=== PATIENT | male | born 1985 | race Caucasian/White ===

== ENCOUNTER 2023-03-20 10:49 | Outpatient (REF) | payer MEDICAID, SELFPAY ==
[2023-03-20 11:44] LABS: MANUAL DIFF FLAG NO
[2023-03-20 11:49] LABS: Basophils Absolute Auto 0.2 X10*3/uL (0.0-0.2); Basophils Percent Auto 1.2 % (0-2); Eosinophils Absolute Auto 0.2 X10*3/uL (0.0-0.4); Eosinophils Percent Auto 1.2 % (0-4); Hematocrit 39.9 % (42.0-52.0); Imm Gran Abs Auto 0.09 X10*3/uL (0.00-0.03); Imm Gran Pct Auto 0.7 % (0.0-0.4); Lymphocytes Absolute Auto 2.5 X10*3/uL (1.2-4.9); Lymphocytes Percent Auto 19.6 % (20-40); Mean Corpuscular HGB Conc 35.1 g/dl (31.0-36.0); Mean Corpuscular Volume 85.4 fL (80.0-98.0); Mean Platelet Volume 10.7 fL (9.4-12.4); Monocytes Absolute Auto 0.8 X10*3/uL (0.1-1.2); Monocytes Percent Auto 6.1 % (2-11); Neutrophils Absolute Auto 9.2 x10*3/uL (2.0-8.3); Neutrophils Percent Auto 71.2 % (45-73); Platelet Count 503 X10*3/uL (160-400); Red Blood Count 4.67 X10*6/uL (4.60-5.80); Red Cell Distribution Width 11.8 % (11.0-16.0); White Blood Count 12.9 X10*3/uL (4.8-10.8)
[2023-03-20 13:06] LABS: Anion Gap 21 (12-20); Blood Urea Nitrogen 23 mg/dL (9-16); Calcium 10.2 mg/dL (8.4-10.2); Carbon Dioxide 24 mmol/L (22-29); Chloride 92 mmol/L (96-108); Estimated Glomerular Filt Rate 41; Glucose Random 486 mg/dL (60-115); Potassium 4.6 mmol/L (3.3-5.1); Sodium 132 mmol/L (135-145)
[2023-03-20 13:13] LABS: TSH reflex Free T4 23.52 uIU/mL (0.32-4.0)
[2023-03-20 13:49] LABS: Free T4 (Free Thyroxine) 0.84 ng/dL (0.71-1.85)
== END 2023-03-20 10:50 | disposition home or self-care (01) ==
LOC: HO.HHCL 10:49
PROVIDERS: Visit Provider Internal Medicine
DX: E03.9 Hypothyroidism, unspecified (principal); E11.65 Type 2 diabetes mellitus with hyperglycemia; N17.9 Acute kidney failure, unspecified
CPT/HCPCS: 36415; 80048; 84439; 84443; 85025

== ENCOUNTER 2023-03-29 10:28 | Outpatient (AMB) | payer MEDICAID, SELFPAY ==
[2023-03-29 10:35] VITALS: BP 140/100; PULSE 110; O2SAT 99; BMI 43.8
--- NOTE | 2023-03-29 10:35 | HO.NEPHOV_ITS ---
HPI HPI Comments History of Present Illness Details I had the privilege of seeing Mr. Anderson in consultation for recent acute kidney injury. He is 37 years of age and has longstanding history of uncontrolled diabetes mellitus. He has DM and HTN since he was in 20's. He recently had a scrotal abscess which was drained and was getting antibiotics. He had a CT scan with IV contrast. He has no history of drug use. He denies history of retinopathy or LVH but has proteinuria and neuropathy. . He used to take nonsteroidal anti-inflammatories which has been recently discontinued. He does not have any nausea, vomiting, diarrhea, shortness of breath, proximal nocturnal dyspnea, orthopnea, pedal edema, hematuria, renal stones, coronary artery disease, congestive heart failure, carotid stenosis, peripheral arterial disease, renal artery stenosis, new bone or back pain. He never had any history of high serum calcium. He denies any history of hepatitis or HIV. He does not get any recurrent sore throat, epistaxis, hemoptysis, photosensitivity, skin rashes. He has no sensorineural hearing deficits. He has no acral tingling or paresthesia. He is concerned about his recent high serum creatinine. He has GAIL and does not have CPAP now. He had 2 uncles with ESRD. [facility] Medical History (Updated 03/29/23 @ 10:45 by Killian Lopes MD) Acquired hypothyroidism JASBIR (acute kidney injury) Paraspinal muscle spasm Axillary hidradenitis suppurativa Hypertension Flat foot Gout Mood disorder Morbid obesity Obstructive sleep apnea syndrome Type 2 diabetes mellitus Surgical History (Updated 03/29/23 @ 10:42 by Kita Monzon MA) History of circumcision History of tonsillectomy and adenoidectomy History of removal of cyst Family History (Updated 03/29/23 @ 10:43 by Kita Monzon MA) Father Diabetes Mother Thyroid disease Maternal Grandfather Cancer Vital Signs 03/29/23 10:35 Height 5 ft 8 in Weight 288 lb 6 oz BMI 43.8 BP 140/100 H Blood Pressure Location Lt brachial Position Sitting Pulse 110 H Pulse Source Pulse Oximeter Pulse Oximetry (%) 99 Oxygen Delivery Method Room Air Physical Exam Vital Signs: Last Vital Signs Pulse 110 H 03/29/23 10:35 BP 140/100 H 03/29/23 10:35 Pulse Ox 99 03/29/23 10:35 Oxygen Delivery Method Room Air 03/29/23 10:35 BMI result Body Mass Index 43.8 Const General: comfortable and no acute distress Orientation/consciousness: patient oriented x3 HEENT Head: Yes normocephalic Mouth: Normal oral and palatal mucosa present Eyes EOM: EOMs intact bilaterally Neck Neck: Yes supple Resp Auscultation: clear to auscultation bilaterally Cardio Jugular venous distension: no JVD Rate: regular rate GI Palpation (GI): Soft to palpation Auscultation: normal bowel sounds General: Yes no CVA tenderness Back/Spine/Pelvis Back: no CVA tenderness Skin General skin exam: no rashes or lesions noted Neuro General: patient oriented x3 and moves all extremities Extrem General: Yes no pedal edema Assessment & Plan Assessment & Plan (1) JASBIR (acute kidney injury): Code(s): N17.9 - Acute kidney failure, unspecified (2) Hypertension: Code(s): I10 - Essential (primary) hypertension Qualifiers: Hypertension type: primary hypertension Qualified Code(s): I10 - Essential (primary) hypertension Plan Mr. Anderson has longstanding uncontrolled diabetes. He recently had a scrotal abscess which was drained. He was on SIERRA-inhibitor that time. He was also taking nonsteroidal anti-inflammatories. Most likely he had suffered tubular injury. His urine output is good and there is no reason to suspect any obstructive uropathy. Differential diagnosis will be jordan infectious glomerulonephritis or AIN. I have ordered extensive workup including blood work and urine studies as well as renal ultrasound. His SIERRA inhibitor is on hold. He is avoiding nonsteroidal anti-inflammatories and PPI for now which I encouraged. He needs to maintain hydration. I increased his carvedilol to 12.5 mg bid. I did not make any other medication changes today. All these possibilities have been discussed in detail and I answered all his questions. Further management has been involving data. Orders: Orders Complement C4 Today I10 - Essential (primary) hypertension, N17.9 - Acute kidney failure, unspecified Myeloperoxidase Antibody Today I10 - Essential (primary) hypertension, N17.9 - Acute kidney failure, unspecified Hepatitis B Surface Antigen Today I10 - Essential (primary) hypertension, N17.9 - Acute kidney failure, unspecified Hepatitis B Core Antibody Today I10 - Essential (primary) hypertension, N17.9 - Acute kidney failure, unspecified Blood Urea Nitrogen Today I10 - Essential (primary) hypertension, N17.9 - Acute kidney failure, unspecified Electrolytes Today I10 - Essential (primary) hypertension, N17.9 - Acute kidney failure, unspecified Calcium Today I10 - Essential (primary) hypertension, N17.9 - Acute kidney failure, unspecified Complement C3 Today I10 - Essential (primary) hypertension, N17.9 - Acute kidney failure, unspecified Immunofixation Pnl, Serum Today I10 - Essential (primary) hypertension, N17.9 - Acute kidney failure, unspecified Anti Glomerular Basement Memb Today I10 - Essential (primary) hypertension, N17.9 - Acute kidney failure, unspecified Proteinase 3 PR3 Antibodies Today I10 - Essential (primary) hypertension, N17.9 - Acute kidney failure, unspecified Anti DNA DS Antibody Today I10 - Essential (primary) hypertension, N17.9 - Acute kidney failure, unspecified Phospholipase A2 Receptor Pnl Today I10 - Essential (primary) hypertension, N17.9 - Acute kidney failure, unspecified Hepatitis C Antibody Reflex Today I10 - Essential (primary) hypertension, N17.9 - Acute kidney failure, unspecified Creatinine Today I10 - Essential (primary) hypertension, N17.9 - Acute kidney failure, unspecified UA and rflx microscopic Today I10 - Essential (primary) hypertension, N17.9 - Acute kidney failure, unspecified Protein Creatinine Ratio, Ur Today I10 - Essential (primary) hypertension, N17.9 - Acute kidney failure, unspecified Coding Level of Care Code New Pt Level 4 (88329) Diagnoses JASBIR (acute kidney injury) N17.9 Primary hypertension I10 Hypertension type: primary hypertension Results Reviewed Nephrology Results: Hgb 14.0 g/dl (14.0-18.0) 03/20/23 WBC 12.9 X10*3/uL (4.8-10.8) H 03/20/23 Plt Count 503 X10*3/uL (160-400) H 03/20/23 Sodium 132 mmol/L (135-145) L 03/20/23 Potassium 4.6 mmol/L (3.3-5.1) 03/20/23 Chloride 92 mmol/L (96-108) L 03/20/23 Carbon Dioxide 24 mmol/L (22-29) 03/20/23 BUN 23 mg/dL (9-16) H 03/20/23 Creatinine 1.86 mg/dL (0.5-1.4) H 03/20/23 Calcium 10.2 mg/dL (8.4-10.2) 03/20/23
== END 2023-03-29 11:23 | disposition home or self-care (01) ==
PROVIDERS: PCP Internal Medicine; Referring Provider Internal Medicine; Visit Provider Internal Medicine Nephrology
DX: N17.9 Acute kidney failure, unspecified (principal); I10 Essential (primary) hypertension
CPT/HCPCS: 99204

== ENCOUNTER → 2023-03-29 10:28 | Outpatient (BNVA) | payer MEDICAID, SELFPAY | PROVIDERS: PCP Internal Medicine; Visit Provider Internal Medicine Nephrology | DX: I10 Essential (primary) hypertension (principal); N17.9 Acute kidney failure, unspecified | CPT/HCPCS: 99202 ==

== ENCOUNTER 2023-11-15 14:45 | Outpatient (REF) | payer MEDICAID, SELFPAY ==
--- NOTE | ~2023-11-15 | XR_ITS ---
EXAMINATION: XR SHOULDER, RIGHT CLINICAL INFORMATION: chronic pain COMPARISON: None available. TECHNIQUE: AP external rotation, Grashey, scapular Y, and axillary views of the right shoulder. FINDINGS: The bones and soft tissues are normal. No fracture. Glenohumeral and acromioclavicular alignment is anatomic with normal joint space. No abnormal soft tissue calcifications. XR/XR shoulder RT min 2V IMPRESSION: Normal right shoulder. Electronically signed by: Yfn Carlos MD 01/22/2024 04:27 PM FELICIA OLGUIN
== END 2023-11-15 14:46 | disposition home or self-care (01) ==
LOC: HO.XRAY 14:45
PROVIDERS: PCP Internal Medicine; Visit Provider Internal Medicine
DX: M25.511 Pain in right shoulder (principal); G89.29 Other chronic pain
CPT/HCPCS: 73030

== ENCOUNTER → 2023-11-15 14:51 | Outpatient (BNV) | payer MEDICAID, SELFPAY | PROVIDERS: PCP Internal Medicine; Visit Provider Radiology Diagnostic Radiology | DX: M25.511 Pain in right shoulder (principal) | CPT/HCPCS: 73030 ==

== ENCOUNTER 2023-12-20 10:46 | Outpatient (AMB) | payer MEDICAID, SELFPAY ==
--- NOTE | 2023-12-20 10:53 | MHC.OFFVIS ---
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 Patient reports about a month ago he had a procedure to remove cyst. He believes he may have gotten frozen shoulder from him laying in bed after his surgery. He states his arm felt stuck and had done at home stretches which had helped. His pain comes with ROM and travels down to his elbow. He complains of bilateral hand pain, swelling and coldness as well as numbness and tingling. Hx of diabetes. Hx of LT CTR. He is interested in discussing a cortisone injection. 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 He reports he had a cyst removal procedure about a month ago and believes he may have gotten frozen shoulder from laying in bed after his surgery. He states he has stiffness, numbness, tingling and aching pain in his arm that radiates down to his right arm and elbow. He rates the pain as 8 on the scale of 0-10. His pain is aggravated with lifting and ROM. He has not had any treatment in the past. He has tried home stretches that provided him relief. He is interested in having a cortisone injection. 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 He has a history of diabetes. His sugar level is uncontrolled and he takes insulin. He also has a history of left CTR. [facility] Medical History (Updated 12/20/23 @ 11:27 by Adrian Rodriguez PA-C) Acquired hypothyroidism JASBIR (acute kidney injury) Paraspinal muscle spasm Axillary hidradenitis suppurativa Hypertension Flat foot Gout Mood disorder Morbid obesity Obstructive sleep apnea syndrome Type 2 diabetes mellitus Surgical History (Updated 03/29/23 @ 10:42 by Kita Monzon MA) History of circumcision History of tonsillectomy and adenoidectomy History of removal of cyst Family History (Updated 03/29/23 @ 10:43 by Kita Monzon MA) Father Diabetes Mother Thyroid disease Maternal Grandfather Cancer Social History (Updated 12/20/23 @ 11:03 by Jodi Menendez [facility]) Patient Tobacco Use Status: Former Tobacco user Current occupational status: employed 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, 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 Review of Systems Const All systems reviewed & are unremarkable except as noted in HPI and below Physical Exam Vital Signs: BMI result Body Mass Index 43.8 Const General: cooperative, healthy appearing, comfortable, no acute distress, well developed and alert Orientation/consciousness: patient oriented x3 HEENT Head: Yes normal to inspection, Yes normocephalic and Yes atraumatic Eyes General: appearance normal, both eyes and all related structures Resp Effort & Inspection: normal respiratory effort and able to speak in complete sentences Cardio Rate: regular rate Peripheral pulses: Peripheral pulses 2+ throughout GI Palpation (GI): Soft to palpation Skin Lesions: no lesions Rashes: no rashes Neuro General: patient oriented x3 Extrem Other: Right shoulder: Normal to inspection. Tenderness over the bicipital groove and along the deltoid region of the shoulder. Forward flexion to 175, external rotation to 90, internal rotation to S1. 5/5 RTC strength. Negative Morel and cross body abduction. NVI. ? Assessment & Plan Assessment & Plan (1) Tendinitis of right rotator cuff: Code(s): M75.81 - Other shoulder lesions, right shoulder Category: Medical Plan We discussed options which include PT, NSAIDs and injections. The patient will defer on the injection today and proceed with PT and NSAIDs. If symptoms persist, she will contact me for an injection, otherwise, PRN. Orders: Orders PT Evaluation and Treatment Today M75.81 - Other shoulder lesions, right shoulder Medications: New celecoxib (Celebrex) 200 mg PO BID 60 caps 3RF 30 days Patient Instructions: Scribed for Adrian Rodriguez PA-C, by Alok Arias medical payment poster, on 12/20/2023 at 11:15 AM EST.? I, Adrian Rodriguez PA-C, have personally reviewed and agree with the information entered by the scribe. Coding Level of Care Code New Pt Level 3 (49814) Complex EM visit Add On G2211 Diagnoses Tendinitis of right rotator cuff M75.81
[2023-12-20 10:54] VITALS: BMI 43.8
== END 2023-12-20 14:32 | disposition home or self-care (01) ==
LOC: HO.HOS 10:46
PROVIDERS: PCP Internal Medicine; Visit Provider Physician Assistant
DX: M75.81 Other shoulder lesions, right shoulder (principal)
CPT/HCPCS: 99203

== ENCOUNTER → 2023-12-20 10:46 | Outpatient (BNVA) | payer MEDICAID, SELFPAY | PROVIDERS: PCP Internal Medicine; Visit Provider Physician Assistant | DX: M75.81 Other shoulder lesions, right shoulder (principal) | CPT/HCPCS: 99212 ==

== ENCOUNTER 2024-01-08 13:59 | Outpatient (REF) | payer MEDICAID, SELFPAY ==
[2024-01-08 16:05] LABS: MANUAL DIFF FLAG NO
[2024-01-08 16:29] LABS: Basophils Absolute Auto 0.1 X10*3/uL (0.0-0.2); Basophils Percent Auto 1.4 % (0-2); Eosinophils Absolute Auto 0.3 X10*3/uL (0.0-0.4); Hematocrit 39.9 % (42.0-52.0); Imm Gran Abs Auto 0.05 X10*3/uL (0.00-0.03); Imm Gran Pct Auto 0.5 % (0.0-0.4); Lymphocytes Absolute Auto 2.6 X10*3/uL (1.2-4.9); Lymphocytes Percent Auto 25.3 % (20-40); Mean Corpuscular HGB Conc 35.1 g/dl (31.0-36.0); Mean Corpuscular Hemoglobin 29.9 pg (27.0-33.0); Mean Corpuscular Volume 85.1 fL (80.0-98.0); Mean Platelet Volume 10.7 fL (9.4-12.4); Monocytes Absolute Auto 0.7 X10*3/uL (0.1-1.2); Monocytes Percent Auto 6.9 % (2-11); Neutrophils Absolute Auto 6.3 x10*3/uL (2.0-8.3); Neutrophils Percent Auto 62.9 % (45-73); Platelet Count 300 X10*3/uL (160-400); Red Blood Count 4.69 X10*6/uL (4.60-5.80); Red Cell Distribution Width 12.1 % (11.0-16.0); White Blood Count 10.1 X10*3/uL (4.8-10.8)
[2024-01-08 17:09] LABS: C Reactive Protein 0.18 mg/dL (< or = 0.50)
== END 2024-01-08 14:00 | disposition home or self-care (01) ==
LOC: HO.HHCL 13:59
PROVIDERS: Visit Provider Family Medicine
DX: R10.32 Left lower quadrant pain (principal)
CPT/HCPCS: 36415; 85025; 86140

== ENCOUNTER 2024-02-18 09:41 | Outpatient (REF) | payer MEDICAID, SELFPAY ==
[2024-02-18 11:27] LABS: Blood Urea Nitrogen 14 mg/dL (9-16); Calcium 9.8 mg/dL (8.4-10.2)
[2024-02-18 11:41] LABS: Alanine Aminotransferase 39 U/L (0-40); Albumin Level 4.8 g/dL (3.5-5.0); Alkaline Phosphatase 113 U/L (39-117); Anion Gap 14 (12-20); Aspartate Amino Transferase 25 U/L (5-37); Bilirubin Direct 0.1 mg/dL (0.0-0.5); Bilirubin Total 0.4 mg/dL (0.0-1.0); Blood Urea Nitrogen 14 mg/dL (9-16); Calcium 9.8 mg/dL (8.4-10.2); Carbon Dioxide 23 mmol/L (22-29); Chloride 100 mmol/L (96-108); Cholesterol 176 mg/dL (<200); Estimated Glomerular Filt Rate > 60; Glucose Random 464 mg/dL (60-115); HDL Cholesterol 38 mg/dL (>40); LDL Cholesterol Calculated 75 mg/dL (<100); Potassium 4.4 mmol/L (3.3-5.1); Sodium 133 mmol/L (135-145); Total Protein 8.7 g/dL (6.5-8.0); Triglycerides 319 mg/dL (<150)
[2024-02-18 11:51] LABS: HBc Num1 0.14 S/CO (0.00-0.79); HBsAGNum1 0.41 S/CO (0.00-0.99); Hepatitis B Core Antibody Nonreactive (Nonreactive); Hepatitis B Surface Antigen Negative (Negative); ~Hepatitis C Antibody Nonreactive (Nonreactive)
[2024-02-18 14:03] LABS: Creatinine Urine 209.68 mg/dL; Microalbum/Creatinine Ratio Ur 24.7 ug/mg cr (<30)
[2024-02-19 10:17] LABS: Complement C3 166 mg/dL (82-185)
[2024-02-19 20:49] LABS: IgA 518 mg/dL (47-310); IgG 1358 mg/dL (600-1640); IgM 57 mg/dL (50-300)
[2024-02-21 13:44] LABS: Anti DNA DS Antibody 1 IU/mL; Anti Glomerular Basement Memb <1.0 AI; Myeloperoxidase Antibody <1.0 AI; Proteinase 3 PR3 Antibodies <1.0 AI
[2024-02-23 01:03] LABS: Phospholipase A2 IgG ELISA <4 RU/mL; Phospholipase A2 IgG IFA NEGATIVE (NEGATIVE)
== END 2024-02-18 09:42 | disposition home or self-care (01) ==
LOC: HO.HHCL 09:41
PROVIDERS: Internal Medicine Nephrology; Visit Provider Internal Medicine
DX: E11.65 Type 2 diabetes mellitus with hyperglycemia (principal); Z79.4 Long term (current) use of insulin; N17.9 Acute kidney failure, unspecified; I10 Essential (primary) hypertension
CPT/HCPCS: 36415; 80048; 80061; 80076; 82043; 82310; 82570; 82784; 83520; 84520; 86021; 86160; 86225; 86255; 86334; 86704; 86803; 87340

== ENCOUNTER 2024-03-03 10:49 | Outpatient (REF) | payer MEDICAID, SELFPAY ==
--- NOTE | ~2024-03-03 | XR_ITS ---
EXAMINATION: XR FOOT 3 OR MORE VIEWS RIGHT HISTORY: acute onset severe R midfoot pain, uncontrolled DM COMPARISON: There are no prior studies available for comparison. FINDINGS: Three views of the right foot are submitted. Osseous mineralization is normal. There is no fracture or dislocation. The joint spaces are preserved. The soft tissues are unremarkable. XR/XR foot RT min 3V IMPRESSION: Unremarkable examination of the right foot. Electronically signed by: Mesfin Olivo MD 03/03/2024 11:06 AM FELICIA
== END 2024-03-03 10:50 | disposition home or self-care (01) ==
LOC: HO.HHCX 10:49
PROVIDERS: Visit Provider Family Medicine
DX: M79.671 Pain in right foot (principal)
CPT/HCPCS: 73630

== ENCOUNTER → 2024-03-03 10:49 | Outpatient (BNV) | payer MEDICAID, SELFPAY | PROVIDERS: Visit Provider Radiology Diagnostic Radiology | DX: M79.671 Pain in right foot (principal) | CPT/HCPCS: 73630 ==

== ENCOUNTER 2024-03-12 14:53 | Outpatient (REF) | payer MEDICAID, SELFPAY ==
[2024-03-12 16:24] LABS: MANUAL DIFF FLAG NO
[2024-03-12 16:33] LABS: Basophils Absolute Auto 0.1 X10*3/uL (0.0-0.2); Basophils Percent Auto 1.2 % (0-2); Eosinophils Absolute Auto 0.3 X10*3/uL (0.0-0.4); Eosinophils Percent Auto 3.4 % (0-4); Hemoglobin 13.9 g/dl (14.0-18.0); Imm Gran Abs Auto 0.03 X10*3/uL (0.00-0.03); Imm Gran Pct Auto 0.3 % (0.0-0.4); Lymphocytes Absolute Auto 2.9 X10*3/uL (1.2-4.9); Lymphocytes Percent Auto 30.5 % (20-40); Mean Corpuscular HGB Conc 34.8 g/dl (31.0-36.0); Mean Corpuscular Hemoglobin 29.8 pg (27.0-33.0); Mean Corpuscular Volume 85.8 fL (80.0-98.0); Mean Platelet Volume 10.4 fL (9.4-12.4); Monocytes Absolute Auto 0.6 X10*3/uL (0.1-1.2); Monocytes Percent Auto 6.6 % (2-11); Neutrophils Absolute Auto 5.5 x10*3/uL (2.0-8.3); Platelet Count 326 X10*3/uL (160-400); Red Blood Count 4.66 X10*6/uL (4.60-5.80); Red Cell Distribution Width 12.3 % (11.0-16.0); White Blood Count 9.5 X10*3/uL (4.8-10.8)
[2024-03-12 16:51] LABS: Anion Gap 9 (12-20); Blood Urea Nitrogen 13 mg/dL (9-16); Calcium 9.6 mg/dL (8.4-10.2); Carbon Dioxide 25 mmol/L (22-29); Chloride 105 mmol/L (96-108); Estimated Glomerular Filt Rate > 60; Glucose Random 227 mg/dL (60-115); Potassium 4.3 mmol/L (3.3-5.1); Sodium 135 mmol/L (135-145)
[2024-03-12 17:22] LABS: Erythrocyte Sedimentation Rate 34 MM/HR (0-15)
--- OUTSIDE RECORDS SUMMARY | 2024-03-12 17:23 | XMS_ITS | Encounter Summary ---
Author Organization [facility] Address [address] [place] [address] Care Team Providers Care Teacher Of The Hearing Impaired Name Role Phone Matilde Calabrese MD Primary Care Provide r Reason for Visit * Reason Comments Procedure Encounter Details Date Type Department Care Team (Latest Contact Info) Description 02/22/2024 10:30 AM EST Procedure visit General Surgery - [place] [address] [place] [id number] Nic Nieto MD [address] [place] [address] Epidermal inclusion cyst (Primary Dx) Social History Tobacco Use Types Packs/Day Years Used Date Smoking Tobacco: Former Cigarettes Alcohol Use Standard Drinks/Week Comments Not Currently 0 (1 standard drink = 0.6 oz pur e alcohol) Sex and Gender Information Value Date Recorded Sex Assigned at Male 02/04/2024 10:26 AM EST Gender Identity Male 02/04/2024 10:26 AM EST Sexual Orientation Not on file Job Start Date Occupation Industry Not on file Not on file Not on file documented as of this encounter Last Filed Vital Signs Vital Sign Reading Time Taken Comments Blood Pressure 140/98 02/22/2024 10:31 AM EST Pulse 120 02/22/2024 10:31 AM EST Temperature - - Respiratory Rate - - Oxygen Saturation - - Inhaled Oxygen Concentration - - Weight 124 kg (273 lb 12.8 oz) 02/22/2024 10:31 AM EST Height 172.7 cm (5' 8 ) 02/22/2024 10:31 AM EST Body Mass Index 41.63 02/22/2024 10:31 AM EST documented in this encounter Functional Status Functional Status Response Date of Assess ment Are you deaf or do you have serious difficulty h earing? No 02/04/2024 Are you blind or do you have serious difficulty seeing, even when wearing glasses? No 02/04/2024 Do you have serious difficul ty walking or climbing stairs? No 02/04/2024 Do you have serious difficulty dressing or bathi ng? No 02/04/2024 Because of a physical, menta l, or emotional condition, do you have serious difficulty doing errands alone such as visiting the doctor? No 02/04/2024 Cognitive Status Response Date of Assessm ent Because of a physical, menta l, or emotional condition, do you have serious difficulty concentrating, remembering, or making decisions? (5 years old or older) No 02/04/2024 documented as of this encounter Progress Notes * Stephanie Travis MA - 02/22/2024 10:30 AM EST CARING FOR YOUR WOUND AT HOME: A waterproof dressing has been applied over your incision today. Please leave this on for 2 days (you may remove this dressing on Sunday). If you have steri strips in place please leave these on and let them flake off on their own. Some oozing of blood may be normal following your procedure and typically represents old surgical blood making its way out through your incision prior to it fully closing. You may change your dressing earlier than 2 days as needed if you note blood soaking through the bandage. You may shower right away following your procedure, however please do not soak in baths, hot tubs, pools, etc. until after being evaluated at your follow up appointment. After removing your dressing, please make sure to keep your incision clean and dry. Gently wash with soap and water and pat dry with a clean towel. It is best to leave this open to the air, however you may and apply a bandaid or gauze dressing as needed for comfort. If you do not have steri strips in place, please apply a thin layer of antibiotic ointment (bacitracin, neosporin) over the sutures once daily. The area may be sore following the procedure. You may take over the counter pain medications (ex. Tylenol, Ibuprofen) for postoperative discomfort if you have no known contraindications to taking these medications. You may additionally ice the incision site. Carefully watch for signs of potential wound infection such as fevers > 101.4 F, chills, nausea,vomiting, increased pain in the area, surrounding redness, or excessive drainage. Please call the office if any of these symptoms or other concerns arise. If you do not have any external sutures to remove, we may follow up in the office on an as-needed basis. The office will call you with pathology results once available. If you have external sutures in place that need to be removed, we will plan to follow up in the office 10-14 days later for sutureremoval. If you have any questions or concerns, please feel free to call the office at [phone]. * Nic Nieto MD - 02/22/2024 10:30 AM EST Pre and post op dx: Epidermal inclusion cyst right neck Procedure: 1. Excision 1.5 cm epidermal inclusion cyst right neck 2. 2 cm layered closure Indication: Raji Anderson is a 38 y.o. year old male inflamed epidermoid cyst in the right neck region. The patient first noted symptoms last Sunday and went to the emergency department. He had a follow-up with a nurse and was advised to check up at urgent care. He was prescribed doxycycline but was told not to start until today and only if there were worsening symptoms. This was last Sunday. M eanwhile he returned to the emergency department because he started feeling symptoms on the left side as well. He has a follow-up with his primary care physician on the . He has a history of insulin-dependent diabetes with an average blood glucose between 190 and 220. Last year 2023 or he also had infection in the right neck requiring incision and drainage at [facility]. His diabetes was diet controlled prior to that. He smokes marijuana every night. On exam there is a 1.5 cm superficial subcutaneous Cender lump in the right mid back. No local signs of infection or active drainage. I explained to the patient that he appears to have a early inflamed epidermoid cyst and that he should start his antibiotics especially given the history of diabetes. I advised warm compresses which she has been doing and should continue to try to see if the area will drain spontaneously. OtherwiseI explained the option of elective excision in the office setting under local anesthesia. Minimal risks expected but include things like bleeding or infection or damage to structures like nerve injury or recurrence. The patient had several question which I believe were answered to his satisfaction.He understood and agreed. Description: Local anesthesia was administered following sterile prep and drape. Next a full-thickness elliptical incision was made through the dermis with a scalpel and extended or deepened around and under the lesion through subcutaneous tissue with sharp dissection. The lesion and a margin of normal tissue were completely excised, removed and sent to pathology. The greatest clinical diameter of the apparent lesion was 1.5 cm. The most narrow margin required for complete excision was 0.1 cm circumferentially. The total excised diameter was 1.7 cm. This created a rather deep local defect measuring approximately 2 centimeters in total length. The resulting complex laceration or wound was closed in 2 layers. Hemostasis was achieved by tissue approximation and observed to be complete. The wound edges were first approximated with deep dermal sutures of 3-0 Vicryl. The more superficial layer of skin was then closed with 4-0 Nylon. The area was treated with antimicrobial ointment. A clean d ressing was applied. Blood loss: Minimal Complications: None The patient was given wound care and activity instructions. The patient will return for followup in2 weeks. documented in this encounter Plan of Treatment Upcoming Encounters Date Type Department Care Team (Late st Contact Info) Description 03/25/2024 8:15 AM EST Office Visit Orthopedic Surgery - [place] [address] [place] [phone] Elias Agee DPTed [address] [place] [address] documented as of this encounter Procedures Procedure Name Priority Date/Time Associated Diagnosis Comments TISSUE EXAM Routine 02/22/2024 10:50 AM EST Epidermal inclusion cyst documented in this encounter Results * Tissue Exam (02/22/2024 10:50 AM EST) Final Diagnosis Skin, right neck-biopsy: -EPIDERMAL INCLUSION CYST, RUPTURED 02/26/2024 12:45 PM EST [facility] Clinical Information Epidermal inclusion cyst L72.0 02/26/2024 12:45 PM EST [facility] Gross Description A. Neck, right neck: Labeled neck . Received in formalin is a 1.4 x 0.3 cm rudd-brown skin ellipse excised with depth of 0.8 cm. The cut surfaces display a 0.3 cm possible cyst containing a rudd-yellow friable substance. Commercial Representative sections are submitted in one cassette, to include the entirety of the possible cyst, three pieces. MARLEY 02/26/2024 12:45 PM [facility] Disclaimer Unless otherwise specified, all tissue is 10% NB formalin fixed and paraffin embedded. 02/26/2024 12:45 PM [facility] Tissue Neck structure / Unknown Non-blood Collection / Unknown 02/22/2024 10:50 AM EST 02/22/2024 11:21 AM EST Nic Nieto MD LAB PATHOLOGY [facility] Organization Address City/State/ZIP Co de Phone Number [facility] [address] [place], [place] [address] [phone] documented in this encounter Visit Diagnoses Diagnosis Epidermal inclusion cyst- Primary Sebaceous cyst documented in this encounter Additional Health Concerns Infection Onset Date Last Indicated Resolved Time RSV 02/06/2024 02/06/2024 03/01/2024 7:04 PM EST Enterovirus 02/06/2024 02/06/2024 03/01/2024 7:04 PM EST Rhinovirus 02/06/2024 02/06/2024 03/01/2024 7:04 PM EST documented as of this encounter Care Teams Teacher Of The Hearing Impaired Relationship Specialty Start Date End Date Matilde Calabrese MD [address] [place] [phone] PCP - General 11/22/23 documented as of this encounter
--- OUTSIDE RECORDS SUMMARY | 2024-03-12 17:23 | XMS_ITS | Encounter Summary ---
Author Organization [facility] Address [address] [place] [address] Care Team Providers Care Mosaic Floor Layer Name Role Phone Matilde Calabrese MD Primary Care Provide r Encounter Details Date Type Department Care Team (Latest Contact Info) Description 03/07/2024 9:30 AM EST Clinical Support General Surgery - [place] [address] [place] [address] Visit for suture removal (Primary Dx) Social History Tobacco Use Types [...] on file documented as of this encounter Functional Status Functional Status Response [...] as of this encounter Progress Notes * Jeanette Lara MA - 03/07/2024 9:30 AM ESTAssociated Order(s): Suture Removal Post-Procedure Diagnose(s): Visit for suture removal Suture Removal Date/Time: 03/07/2024 9:41 AM Performed by: Jeanette Lara MA Authorized by: Nic Nieto MD Consent: Consent obtained: Verbal Consent given by: Patient Alternatives discussed: No treatment [place] protocol: Patient identity confirmed: Verbally with patient Location: Location: Head/neck Head/neck location: Neck Procedure details: Wound appearance: No signs of infection and good wound healing Post-procedure details: Post-removal: No dressing applied Procedure completion: Tolerated documented in this encounter Plan of Treatment Upcoming Encounters Date Type Department Care Team (Late st Contact Info) Description 03/25/2024 8:15 AM EST Office Visit Orthopedic Surgery [place] [id number] [phone] Elias Agee, DPM [address] [place] [address] documented as of this encounter Procedures Procedure Name Priority Date/Time Associated Diagnosis Comments SUTURE REMOVAL Routine 03/07/2024 9:41 AM EST Visit for suture removal documented in this encounter Results * SUTURE REMOVAL (03/07/2024 9:41 AM EST) Narrative Jeanette Lara MA - 03/07/2024 9:41 AM EST Jeanette Lara MA ? 03/07/2024 ??9:41 AM Suture Removal Date/Time: 03/07/2024 9:41 AM Performed by: Jeanette Lara MA Authorized by: Nic Nieto MD ?? Consent: ??Consent obtained: ??Verbal ??Consent given by: ??Patient ??Alternatives discussed: ??No treatment [place] protocol: ??Patient identity confirmed: ??Verbally with patient Location: ??Location: ??Head/neck ??Head/neck location: ??Neck Procedure details: ??Wound appearance: ??No signs of infection and good wound healing Post-procedure details: ??Post-removal: ??No dressing applied ??Procedure completion: ??Tolerated Nic Nieto MD IN CLINIC/BEDSIDE OR DERABLES documented in this encounter Visit Diagnoses Diagnosis Visit for suture removal- Primary documented in this encounter Care Teams Mosaic Floor Layer Relationship Specialty Start Date End Date Matilde Calabrese MD [address] [place] [phone] PCP - General 11/22/23 documented as of this encounter
--- OUTSIDE RECORDS SUMMARY | 2024-03-12 17:23 | XMS_ITS | Clinical Summary ---
Author Organization [facility] Address [address] [place] [address] Phone Care Team Providers Care Director Digital Communications Name Role Phone Matilde Calabrese MD Primary Care Provide r Allergies Active Allergy Reactions Criticality Noted Date Comments Ibuprofen Renal Impairment 12/24/2023 Iodinated Contrast Media Renal Impairment 12/23 Medications Medication Sig Dispensed Refills Start Date End Date Status amoxicillin-clavu lanate (Augmentin) 875-125 mg per tablet Take 1 tablet by mouth 2 (two) times a day. 20 tablet 03/11/2024 Active clotrimazole (LOTRIMIN) 1 % external solution Apply topically 2 (two) times a day. Apply to nails and skin 30 mL 2 01/10/2024 03/06/2024 Additional Information Patient not taking.Reported on 02/04/2024 Active Problems Problem Noted Date Diagnosed Date Sleep apnea Encounters Date Type Department Care Team Description 03/11/2024 8:45 AM EST Office Visit Orthopedic Surgery [facility] [address] [facility] [address] [place] [address] Elias Agee, DPM Cellulitis of left foot (Primary Dx); Dermatophytosis of nail; Ingrowing nail; Diabetic mononeuropathy simplex (CMS/HCC); Pain in toe of left foot; Pain in toe of right foot 03/09/2024 10:05 PM EST - 03/10/2024 1:10 AM EST Emergency [facility] Emergency [address] [place] [address] Ocular migraine (Primary Dx) Discharge Disposition: Home or Self Care 03/07/2024 9:30 AM EST Clinical Support [facility] [address] [phone] Visit for suture removal (Primary Dx) 02/22/2024 10:30 AM EST Procedure visit [address] [phone] Nic Nieto MD Epidermal inclusion cyst (Primary Dx) 02/06/2024 1:39 PM EST - 02/06/2024 8:10 PM EST [facility] Emergency [address] [place] [address] [phone] MD Rhinovirus (Primary Dx); Cellulitis of neck Discharge Disposition: Home or Self Care 02/04/2024 2:00 PM EST Office Visit [address] [phone] Nic Nieto MD Inflamed epidermoid cyst of skin (Primary Dx); Type 2 diabetes mellitus without complication, with long-term current use of insulin ([facility]); Smoking 02/04/2024 9:49 AM EST - 02/04/2024 10:34 AM EST [address] [phone] Cellulitis of neck (Primary Dx) Discharge Disposition: Home or Self Care 01/30/2024 10:29 PM EST - 01/31/2024 4:39 AM EST [facility] Emergency [address] [place] [phone] Neck pain on right side (Primary Dx) Discharge Disposition: Home or Self Care 01/26/2024 12:09 PM EST - 01/26/2024 3:10 PM EST [facility] Emergency [address] [place] [phone] Lumbar strain, initial encounter (Primary Dx) Discharge Disposition: Home or Self Care 01/10/2024 10:30 AM EST Office Visit Orthopedic Surgery [facility] [address] [phone] Agee, Christopher M, DPM Ingrowing nail (Primary Dx); Dermatophytosis of nail; Diabetic mononeuropathy simplex (CMS/HCC); Pain in toe of left foot; Pain in toe of right foot 12/24/2023 7:17 PM EST - 12/25/2023 1:14 AM EST Emergency [facility] Emergency [address] [place] [address] Diabetic infection of right foot (CMS/HCC) (Primary Dx) Discharge Disposition: Home or Self Care from Last 3 Months Surgical History Surgery Date Site/Laterality Comments OTHER SURGICAL HISTORY 04/16/2023 Left PROCEDURE: OK I&D BELOW FASCIA FOOT 1 BURSAL SPACE OTHER SURGICAL HISTORY 04/18/2023 Left PROCEDURE: OK INCISION BONE CORTEX FOOT; COMMENT: left, distal hallux OTHER SURGICAL HISTORY 04/18/2023 PROCEDURE: OK REPAIR INTERMEDIATE N/H/F/XTRNL GENT 2.5CM/< TOE SURGERY Left Medical History Medical History Date Comments Diabetes mellitus (CMS/HCC) Hypertension Disease of thyroid gland Sleep apnea Social History Tobacco Use Types Packs/Day Years Used Date Smoking Tobacco: Former Cigarettes Tobacco Cessation:Counseling Given: Not Answered Alcohol Use Standard Drinks/Week Comments Not Currently 0 (1 standard drink = 0.6 oz pur e alcohol) Sex and Gender Information Value Date Recorded Sex Assigned at Male 02/04/2024 10:26 AM EST Gender Identity Male 02/04/2024 10:26 AM EST Sexual Orientation Not on file Job Start Date Occupation Industry Not on file Not on file Not on file Obstetrics History Last Filed Vital Signs Vital Sign Reading Time Taken Comments Blood Pressure 138/94 03/10/2024 1:08 AM EST Pulse 84 03/10/2024 1:08 AM EST Temperature 36.7 ??C (98.1 ??F) 03/10/2024 1:08 AM ES T Respiratory Rate 18 03/10/2024 1:08 AM EST Oxygen Saturation 100% 03/10/2024 1:08 AM EST Inhaled Oxygen Concentration - - Weight 122 kg (270 lb) 03/11/2024 8:19 AM EST Height 172.7 cm (5' 7.99 ) 03/11/2024 8:19 AM ES T Body Mass Index 41.06 03/11/2024 8:19 AM EST Plan of Treatment Upcoming Encounters Date Type Department Care Team (Late st Contact Info) Description 03/25/2024 8:15 AM EST Office Visit Orthopedic Surgery - [place] [address] [facility] [address] [place] [address] Elias Agee, DPM [address] [place] [address] Health Maintenance Due Date Last Done Comments Diabetes: Annual Foot Exam 1996 Diabetes: Annual Retina Eye Exam 1996 HIV Screening 01/22/2022 Social Influencers of Health Screening 01/22/2022 COVID-19 Vaccine ( season) 2023 04/09/2020, 03/12/2020 Diabetes: Annual Urine Albumin-Creatinine Ratio (uACR) 12/25/2023 07/25/2022 Hepatitis B Vaccines (3 of 3 - 19+ 3-dose series) 06/04/2024 02/18/2024, 12/05/2023 Diabetes: Blood Sugar Control Test (HGBA1C) 08/18/2024 02/18/2024, 11/14/2023 Depression Screening 12/26/2024 12/27/2023 Diabetes: Annual GFR (Glomerular Filtration Rate) 02/17/2025 02/18/2024, 02/06/2024, 01/31/2024, Additional history exists Hypertension/CHF/CAD Annual BMP Blood Test 02/17/2025 02/18/2024, 02/06/2024, 01/31/2024, Additional history exists DTaP,Tdap,and Td Vaccines (3 - Td or Tdap) 08/19/2028 08/19/2018, 02/05/2012 Cholesterol Screening (Lipid Panel) 02/17/2029 02/18/2024, 01/09/2020 Pneumococcal Vaccine: Pediatrics (0 to 5 Years) and At-Risk Patients (6 to 64 Years) Completed 12/27/2023, 08/19/2018 Hepatitis C Screening Completed 02/18/2024 Influenza Vaccine Completed 02/27/2024, , 12/16/2018, Additional history exists HIB Vaccines Aged Out No longer eligi ble based on patient's age to complete this topic HPV Vaccines Aged Out No longer eligi ble based on patient's age to complete this topic Hepatitis A Vaccines Aged Out No long er eligible based on patient's age to complete this topic IPV Vaccines Aged Out No longer eligi ble based on patient's age to complete this topic MMR Vaccines Aged Out No longer eligi ble based on patient's age to complete this topic Meningococcal ACWY Vaccine Aged Out N o longer eligible based on patient's age to complete this topic RSV Immunization Patients Under 20 months Aged Out No longer eligible based on patient's age to complete this topic Varicella Vaccines Aged Out No longer eligible based on patient's age to complete this topic Procedures Procedure Name Priority Date/Time Associated Diagnosis Comments SUTURE REMOVAL Routine 03/07/2024 9:41 AM EST Visit for suture removal TISSUE EXAM Routine 02/22/2024 10:50 AM EST Epidermal inclusion cyst CBC WITH AUTO DIFFERENTIAL STAT 02/06/2024 6:44 PM EST CBC AND DIFFERENTIAL STAT 02/06/2024 6:44 PM EST POCT GLUCOSE BLOOD Routine 02/06/2024 5: 29 PM EST LACTATE STAT 02/06/2024 4:23 PM EST RESPIRATORY VIRUS PANEL MOLECULAR STUDY STAT 02/06/2024 4:[address] ABDOMEN PELVIS WO CONTRAST STAT 02/06/2024 3:32 PM EST POCT GLUCOSE BLOOD Routine 02/06/2024 2: 22 PM EST POCT GLUCOSE BLOOD Routine 02/06/2024 7: 35 AM EST URINALYSIS WITH REFLEX MICROSCOPIC STAT 02/06/2024 7:28 AM EST URINALYSIS WITH REFLEX MICROSCOPIC STAT 02/06/2024 7:28 AM EST MENARD URINE CULTURE TUBE Routine 02/06/20 7:26 AM EST EXTRA TUBES Routine 02/06/2024 7:26 AM EST C-REACTIVE PROTEIN STAT Add-on 02/06/2024 7: 25 AM EST SEDIMENTATION RATE STAT Add-on 02/06/2024 7: 25 AM EST CBC WITH AUTO DIFFERENTIAL STAT 02/06/2024 7:25 AM EST VENOUS BLOOD GAS STAT 02/06/2024 7:25 AM EST BETA HYDROXYBUTYRATE STAT 02/06/2024 7:25 AM EST OSMOLALITY STAT 02/06/2024 7:25 AM EST MAGNESIUM STAT 02/06/2024 7:25 AM EST LIPASE STAT 02/06/2024 7:25 AM EST COMPREHENSIVE METABOLIC PANEL STAT 02/06/2024 7:25 AM EST CBC AND DIFFERENTIAL STAT 02/06/2024 7:25 AM EST POCT GLUCOSE BLOOD Routine 02/06/2024 6: [address] NECK SOFT TISSUE W CONTRAST STAT 01/31/2024 2:06 AM EST CBC WITH AUTO DIFFERENTIAL STAT 01/31/2024 12:49 AM EST BASIC METABOLIC PANEL STAT 01/31/2024 12:49 AM EST CBC AND DIFFERENTIAL STAT 01/31/2024 12:49 AM EST XR LUMBAR SPINE 2-3 VIEWS STAT 01/26/2024 12:13 PM EST XR FOOT 3+ VIEWS RIGHT STAT 8:04 PM EST CBC WITH AUTO DIFFERENTIAL STAT 12/24/2023 7:45 PM EST C-REACTIVE PROTEIN STAT 12/24/2023 7: 45 PM EST SEDIMENTATION RATE STAT 12/24/2023 7: 45 PM EST COMPREHENSIVE METABOLIC PANEL STAT 12/24/2023 7:45 PM EST CBC AND DIFFERENTIAL STAT 12/24/2023 7:45 PM EST from Last 3 Months Results * SUTURE REMOVAL (03/07/2024 9:41 AM EST) Jeanette Cano MA - 03/07/2024 9:41 AM EST Jeanette Lara MA ? 03/07/2024 ??9:41 AM Suture Removal Date/Time: 03/07/2024 9:41 AM Performed by: Jeanette Lara MA Authorized by: Nic Nieto MD ?? Consent: ??Consent obtained: ??Verbal ??Consent given by: ??Patient ??Alternatives discussed: ??No treatment [place] protocol: ??Patient identity confirmed: ??Verbally with patient Location: ??Location: ??Head/neck ??Head/neck location: ??Neck Procedure details: ??Wound appearance: ??No signs of infection and good wound healing Post-procedure details: ??Post-removal: ??No dressing applied ??Procedure completion: ??Tolerated Nic Nieto MD IN CLINIC/BEDSIDE OR DERABLES * Tissue Exam (02/22/2024 10:50 AM EST) Final Diagnosis Skin, right neck-biopsy: -EPIDERMAL INCLUSION CYST, RUPTURED 02/26/2024 12:45 PM EST [facility] Clinical Information Epidermal inclusion cyst L72.0 02/26/2024 12:45 PM EST [facility] ([facility]) [facility] Gross Description A. Neck, right neck: Labeled neck . Received in formalin is a 1.4 x 0.3 cm rudd-brown skin ellipse excised with depth of 0.8 cm. The cut surfaces display a 0.3 cm possible cyst containing a rudd-yellow friable substance. Commissary Representative sections are submitted in one cassette, to include the entirety of the possible cyst, three pieces. MARLEY 02/26/2024 12:45 PM EST [facility] Disclaimer Unless otherwise specified, all tissue is 10% NB formalin fixed and paraffin embedded. 02/26/2024 12:45 PM EST [facility] Tissue Neck structure / Unknown Non-blood Collection / Unknown 02/22/2024 10:50 AM EST 02/22/2024 11:21 AM EST Nic Nieto MD LAB PATHOLOGY ORDERA BLES [facility] [address] [place] [address], * (ABNORMAL) CBC auto differential (02/06/2024 6:44 PM EST) Only the most recent of4 resultswithin the time period is included. WBC 12.2(H) 4.8 - 10.8 K/mcL LAB HEMETOLOGY METHOD 02/06/2024 7:04 PM [facility] RBC 4.60 4.50 - 5.50 M/mcL LAB HEMETOLOGY METHOD 02/06/2024 7:04 PM [facility] Hemoglobin 13.5 13.5 - 17.5 g/dL LAB HEMETOLOGY METHOD 02/06/2024 7:04 PM [facility] Hematocrit 38.4(L) 42.0 - 54.0 % LAB HEMETOLOGY METHOD 02/06/2024 7:04 PM [facility] MCV 84.4 79.0 - 98.0 FL LAB HEMETOLOGY METHOD 02/06/2024 7:04 PM [facility] MCH 29.7 27.0 - 32.0 pcg LAB HEMETOLOGY METHOD 02/06/2024 7:04 PM [facility] MCHC 35.2 32.0 - 37.0 g/dL LAB HEMETOLOGY METHOD 02/06/2024 7:04 PM [facility] RDW 12.3 11.0 - 15.0 % LAB HEMETOLOGY METHOD 02/06/2024 7:04 PM [facility] Platelets 298 130 - 400 K/mcL LAB HEMETOLOGY METHOD 02/06/2024 7:04 PM [facility] MPV 10.4 7.0 - 11.0 FL LAB HEMETOLOGY METHOD 02/06/2024 7:04 PM [facility] NRBC 0.0 <1.0 % LAB HEMETOLOGY METHOD 02/06/2024 7:04 PM [facility] NRBC Absolute 0.00 <0.10 K/mcL LAB HEMETOLOGY METHOD 02/06/2024 7:04 PM [facility] Neutrophils Relative 83.4 % LAB HEMETOLOGY METHOD 02/06/2024 7:04 PM [facility] Lymphocytes Relative 10.3 % LAB HEMETOLOGY METHOD 02/06/2024 7:04 PM [facility] Monocytes Relative 5.3 % LAB HEMETOLOGY METHOD 02/06/2024 7:04 PM [facility] Eosinophils Relative 0.1 % LAB HEMETOLOGY METHOD 02/06/2024 7:04 PM [facility] Basophils Relative 0.4 % LAB HEMETOLOGY METHOD 02/06/2024 7:04 PM [facility] Immature Granulocytes Relative 0.5 % LAB HEMETOLOGY METHOD 02/06/2024 7:04 PM [facility] Neutrophils Absolute 10.17(H) 1.50 - 7.00 K/mcL LAB HEMETOLOGY METHOD 02/06/2024 7:04 PM EST [facility] Lymphocytes Absolute 1.25 1.00 - 5.00 K/mcL LAB HEMETOLOGY METHOD 02/06/2024 7:04 PM EST [facility] Monocytes Absolute 0.65 0.20 - 1.00 K/mcL LAB HEMETOLOGY METHOD 02/06/2024 7:04 PM EST [facility] Eosinophils Absolute 0.01 0.00 - 0.50 K[facility] LAB HEMETOLOGY METHOD 02/06/2024 7:04 PM EST [facility] Basophils Absolute 0.05 0.00 - 0.20 K/mcL LAB HEMETOLOGY METHOD 02/06/2024 7:04 PM EST [facility] Immature Granulocytes Absolute 0.06(H) 0.00 - 0.03 [facility] HEMETOLOGY METHOD 02/06/2024 7:04 PM EST [facility] Blood Venous blood specimen / Unknown Venipuncture / Unknown 02/06/2024 6:44 PM EST 02/06/2024 6:52 PM EST Narrative Authorizing Provider Result Lynnette Way MD LAB BLOOD ORDERABLES [facility] [address] [place] [address], * (ABNORMAL) POCT Glucose, blood (02/06/2024 5:29 PM EST) Only the most recent of4 resultswithin the time period is included. Glucose POCT 277(H) 70 - 100 mg/dL 02/06/2024 5:30 PM EST [facility] Blood Capillary blood specimen / Unknown 02/06/2024 5:29 PM EST 02/06/2024 5:31 PM EST Narrative Authorizing Provider Result Lynnette Way MD LAB POINT OF CARE TE ST DOCKED DEVICE UNSOLICITED RESULTS [facility] [address] [place] [address], * (ABNORMAL) Lactate (02/06/2024 4:23 PM EST) [facility] Lactate 3.0(H) 0.4 - 2.0 mmol/L LAB CHEMISTRY METHOD 02/06/2024 5:03 PM EST [facility] Blood Venous blood specimen / Unknown Venipuncture / Unknown 02/06/2024 4:23 PM EST 02/06/2024 4:32 PM EST Alonso B Seamus VELEZ LAB BLOOD ORDERABLES Performing Organization Address City/[facility]/ZIP Co de Phone Number [facility] [address] [place] [address], * (ABNORMAL) Respiratory virus panel molecular study (02/06/2024 4:19 PM EST) [facility] Adenovirus Detection by PCR Not Detected Not Detected LAB MICROBIOLOGY METHOD 02/06/2024 5:31 PM EST [facility] Influenza A PCR Not Detected Not Detected LAB MICROBIOLOGY METHOD 02/06/2024 5:31 PM [facility] Influenza B PCR Not Detected Not Detected LAB MICROBIOLOGY METHOD 02/06/2024 5:31 PM EST [facility] Coronavirus 229E Not Detected Not Detected LAB MICROBIOLOGY METHOD 02/06/2024 5:31 PM [facility] Coronavirus HKU1 Not Detected Not Detected LAB MICROBIOLOGY METHOD 02/06/2024 5:31 PM EST [facility] Coronavirus OC43 Not Detected Not Detected LAB MICROBIOLOGY METHOD 02/06/2024 5:31 PM [facility] Coronavirus NL63 Not Detected Not Detected LAB MICROBIOLOGY METHOD 02/06/2024 5:31 PM EST [facility] Parainfluenza Virus 1 Not Detected Not Detected LAB MICROBIOLOGY METHOD 02/06/2024 5:31 PM EST [facility] Parainfluenza Virus 2 Not Detected Not Detected LAB MICROBIOLOGY METHOD 02/06/2024 5:31 PM [facility] Parainfluenza Virus 3 Not Detected Not Detected LAB MICROBIOLOGY METHOD 02/06/2024 5:31 PM [facility] Parainfluenza Virus 4 Not Detected Not Detected LAB MICROBIOLOGY METHOD 02/06/2024 5:31 PM [facility] RSV PCR Not Detected Not Detected LAB MICROBIOLOGY METHOD 02/06/2024 5:31 PM [facility] Human Metapneumovirus A and B Not Detected Not Detected LAB MICROBIOLOGY METHOD 02/06/2024 5:31 PM [facility] Rhinovirus/Entero virus Detected(A ) Not Detected LAB MICROBIOLOGY METHOD 02/06/2024 5:31 PM [facility] Bordetella pertussis Not Detected Not Detected LAB MICROBIOLOGY METHOD 02/06/2024 5:31 PM [facility] Bordetella parapertussis Not Detected Not Detected LAB MICROBIOLOGY METHOD 02/06/2024 5:31 PM [facility] Mycoplasma pneumo by PCR Not Detected Not Detected LAB MICROBIOLOGY METHOD 02/06/2024 5:31 PM [facility] Chlamydia pneumoniae Not Detected Not Detected LAB MICROBIOLOGY METHOD 02/06/2024 5:31 PM [facility] SARS COV-2 Not Detected Not Detected LAB MICROBIOLOGY METHOD 02/06/2024 5:31 PM [facility] Swab Both anterior nares / Unknown Non-blood Collection / Unknown 02/06/2024 4:19 PM EST 02/06/2024 4:32 PM EST [facility] - 02/06/2024 5:31 PM EST Testing was performed using the [employer] Respiratory Pathogen PCR Assay. All results must be correlated with the clinical findings. Results should not be used as the sole basis for diagnosis. False Negative results may occur from the presence of sequence variants in the region targeted by the assay or the presence of inhibitors. Results may be affected by concurrent antiviral/antimicrobial therapy or levels of organisms that are below the limit of detection. Alonso Way MD LAB MICROBIOLOGY - G ENERAL ORDERABLES [facility] ([facility]) [facility] [address] [place] [address], * CT Abdomen Pelvis wo Contrast (02/06/2024 3:32 PM EST) Anatomical Region Laterality Modality Body Computed Tomogra phy 02/06/2024 4:02 PM EST Impressions 02/06/2024 4:08 PM EST No acute abnormality. No etiology for acute abdomen pain demonstrated. ?? -------- FINAL REPORT -------- Dictated By: Rodrigue Khan Dictated Date: 02/06/2024 16:02 ET Assigned Physician: Rodrigue Khan Reviewed and Electronically Signed By: Rodrigue Khan Signed Date: 02/06/2024 16:08 ET Workstation ID: [id number] Transcribed By: Self Edit Transcribed Date: 02/06/2024 16:02 ET Narrative 02/06/2024 4:08 PM EST EXAMINATION: CT ABDOMEN/PELVIS WITHOUT IV CONTRAST CLINICAL INFORMATION: Abdomen pain. Hyperglycemia. ??Acute nonlocalized abdomen pain. COMPARISON: Portions of a previous CT 11/11/2023 ?? TECHNIQUE: Multidetector CT. Helical examination of the abdomen and pelvis. Imaging performed without IV contrast. Reformatting in the coronal and sagittal planes. DLP: 1289 mGy-cm Dose optimization was performed including the use of low-dose iterative reconstruction technique with automatic exposure control based on patient size. Type of contrast: None Volume of IV contrast: None Volume of contrast discarded: 0 mL FINDINGS: LIVER: No focal liver lesion. The liver contour is smooth. I suspect fatty change. No additional liver findings. ?? BILIARY TRACT: ??There is no opaque gallstone. No biliary dilation SPLEEN: Normal size. ??No focal lesion. ?? PANCREAS: Normal; no mass or surrounding fluid. ?? ADRENAL GLANDS: Normal; no mass. ?? KIDNEYS: No dilation of the intrarenal collecting system. No suspicious mass. There is a punctate nonobstructing lower pole right renal calculus 13.1 cm from the skin. ?? GASTROINTESTINAL TRACT: No localized bowel wall thickening. The appendix contains some opaque material but is normal caliber and there is no surrounding stranding. No suspicious abnormality in the stomach. ?? URINARY BLADDER: ??Within normal limits PELVIC VISCERA: ??No suspicious abnormality. There is calcification of the vas deferens which is commonly seen with diabetes. ABDOMINAL WALL: No significant hernia is appreciated. ?? LYMPHOVASCULAR STRUCTURES AND FLUID: There is no abdominal aortic aneurysm. There are no enlarged lymph nodes. There is no significant free fluid. ?? VISUALIZED LOWER CHEST: No suspicious abnormality. ?? MUSCULOSKELETAL: No acute or suspicious osseous abnormality. Procedure Note Rodrigue Khan MD - 02/06/2024 EXAMINATION: CT ABDOMEN/PELVIS WITHOUT IV CONTRAST CLINICAL INFORMATION: Abdomen pain. Hyperglycemia. Acute nonlocalized abdomen pain. COMPARISON: Portions of a previous CT 11/11/2023 TECHNIQUE: Multidetector CT. Helical examination of the abdomen and pelvis. Imaging performed without IV contrast. Reformatting in the coronal and sagittal planes. DLP: 1289 mGy-cm Dose optimization was performed including the use of low-dose iterativereconstruction technique with automatic exposure control based on patientsize. Type of contrast: None Volume of IV contrast: None Volume of contrast discarded: 0 mL FINDINGS: LIVER: No focal liver lesion. The liver contour is smooth. I suspect fattychange. No additional liver findings. BILIARY TRACT: There is no opaque gallstone. No biliary dilation SPLEEN: Normal size. No focal lesion. PANCREAS: Normal; no mass or surrounding fluid. ADRENAL GLANDS: Normal; no mass. KIDNEYS: No dilation of the intrarenal collecting system. No suspiciousmass. There is a punctate nonobstructing lower pole right renal bupismrg58.1 cm from the skin. GASTROINTESTINAL TRACT: No localized bowel wall thickening. The appendixcontains some opaque material but is normal caliber and there is nosurrounding stranding. No suspicious abnormality in the stomach. URINARY BLADDER: Within normal limits PELVIC VISCERA: No suspicious abnormality. There is calcification of thevas deferens which is commonly seen with diabetes. ABDOMINAL WALL: No significant hernia is appreciated. LYMPHOVASCULAR STRUCTURES AND FLUID: There is no abdominal aorticaneurysm. There are no enlarged lymph nodes. There is no significant freefluid. VISUALIZED LOWER CHEST: No suspicious abnormality. MUSCULOSKELETAL: No acute or suspicious osseous abnormality. IMPRESSION: No acute abnormality. No etiology for acute abdomen pain demonstrated. -------- FINAL REPORT -------- Dictated By: Rodrigue Khan Dictated Date: 02/06/2024 16:02 ET Assigned Physician: Rodrigue Khan Reviewed and Electronically Signed By: Rodrigue Khan Signed Date: 02/06/2024 16:08 ET Workstation ID: [id number] Transcribed By: Self Edit Transcribed Date: 02/06/2024 16:[address] MD IM CT PROCEDURES * (ABNORMAL) Urinalysis with reflex microscopic (02/06/2024 7:28 AM EST) Specific [place] Urine 1.031(H) 1.003 - 1.030 LAB URINALYSIS - AUTOMATED METHOD 02/06/2024 7:59 AM [facility] pH, Urine 6.5 5.0 - 8.0 pH LAB URINALYSIS - AUTOMATED METHOD 02/06/2024 7:59 AM [facility] Leukocytes, Urine Negative Negative LAB URINALYSIS - AUTOMATED METHOD 02/06/2024 7:59 AM [facility] Nitrite, Urine Negative Negative LAB URINALYSIS - AUTOMATED METHOD 02/06/2024 7:59 AM [facility] Protein, Urine 30(A) <=Trace mg/dL LAB URINALYSIS - AUTOMATED METHOD 02/06/2024 7:59 AM [facility] Glucose, Urine >=1000(A) Negative mg/dL LAB URINALYSIS - AUTOMATED METHOD 02/06/2024 7:59 AM [facility] Ketones, Urine Trace(A) Negative mg/dL LAB URINALYSIS - AUTOMATED METHOD 02/06/2024 7:59 AM [facility] Urobilinogen , Urine 1.0 0.2 - 1.0 mg/dL LAB URINALYSIS - AUTOMATED METHOD 02/06/2024 7:59 AM [facility] Bilirubin, Urine Negative Negative LAB URINALYSIS - AUTOMATED METHOD 02/06/2024 7:59 AM [facility] Blood, Urine Negative Negative LAB URINALYSIS - AUTOMATED METHOD 02/06/2024 7:59 AM [facility] RBC, Urine 6.4(H) 0 - 4 /HPF LAB URINALYSIS - AUTOMATED METHOD 02/06/2024 7:59 AM [facility] WBC, Urine 1.6 0 - 4 /HPF LAB URINALYSIS - AUTOMATED METHOD 02/06/2024 7:59 AM [facility] Squamous Epithelial, Urine 33 0 - 60 /LPF LAB URINALYSIS - AUTOMATED METHOD 02/06/2024 7:59 AM [facility] Bacteria, Urine Negative Negative /HPF LAB URINALYSIS - AUTOMATED METHOD 02/06/2024 7:59 AM [facility] Hyaline Casts, Urine 0.4 0 - 3 /LPF LAB URINALYSIS - AUTOMATED METHOD 02/06/2024 7:59 AM [facility] Urine Urine specimen obtained by clean catch procedure / Unknown Non-blood Collection / Unknown 02/06/2024 7:28 AM EST 02/06/2024 7:46 AM EST Lamonte Humphreys MD LAB URINE ORDERABLES [facility] [address] [place] [address], * Menard urine culture tube (02/06/2024 7:26 AM EST) Extra Tube Hold for add-ons. 02/06/2024 9:02 AM EST [facility] Comment:Auto resulted. Urine Urine specimen obtained by clean catch procedure / Unknown 02/06/2024 7:26 AM EST 02/06/2024 7:53 AM EST Lamonte Humphreys MD LAB URINE ORDERABLES Performing Organization Address City/[facility]/ZIP Co de Phone Number [facility] [address] [place] [address], [place] [phone] * Beta hydroxybutyrate (02/06/2024 7:25 AM EST) Beta-Hydroxybu tyrate 2.1 0.2 - 2.8 mg/dL LAB CHEMISTRY METHOD 02/06/2024 8:17 AM EST [facility] Blood Venous blood specimen / Unknown Venipuncture / Unknown 02/06/2024 7:25 AM EST 02/06/2024 7:47 AM EST Lamonte Humphreys MD LAB BLOOD ORDERABLES Performing Organization Address City/[facility]/ZIP Co de Phone Number [facility] [address] [place] [address], [place] [phone] * (ABNORMAL) Sedimentation rate, automated (02/06/2024 7:25 AM EST) Only the most recent of2 resultswithin the time period is included. Sed Rate 27(H) 0 - 15 mm/hr LAB HEMETOLOGY METHOD 02/06/2024 2:50 PM EST [facility] Blood Venous blood specimen / Unknown Venipuncture / Unknown 02/06/2024 7:25 AM EST 02/06/2024 7:[address] MD LAB BLOOD ORDERABLES Performing Organization Address City/[facility]/ZIP Co de Phone Number [facility] [address] [place] [address], * (ABNORMAL) C-reactive protein (02/06/2024 7:25 AM EST) Only the most recent of2 resultswithin the time period is included. Pathologist [facility] C-Reactive Protein 0.80(H) <=0.50 mg/dL LAB CHEMISTRY METHOD 02/06/2024 3:27 PM EST [facility] Blood Venous blood specimen / Unknown Venipuncture / Unknown 02/06/2024 7:25 AM EST 02/06/2024 7:[address] MD LAB BLOOD ORDERABLES Performing Organization Address [facility]/ZIP Co de Phone Number [facility] [address] [place] [address], * (ABNORMAL) Osmolality (02/06/2024 7:25 AM EST) [facility] Osmolality Kristine 304(H) 280 - 300 mOsm/kg LAB CHEMISTRY METHOD 02/06/2024 8:55 AM EST [facility] Blood Venous blood specimen / Unknown Venipuncture / Unknown 02/06/2024 7:25 AM EST 02/06/2024 7:47 AM EST Lamonte Humphreys MD LAB BLOOD ORDERABLES Performing Organization Address City/[facility]/ZIP Co de Phone Number [facility] [address] [place] [address], * (ABNORMAL) Magnesium (02/06/2024 7:25 AM EST) Pathologist [facility] Magnesium 1.7(L) 1.9 - 2.6 mg/dL LAB CHEMISTRY METHOD 02/06/2024 8:17 AM EST [facility] Blood Venous blood specimen / Unknown Venipuncture / Unknown 02/06/2024 7:25 AM EST 02/06/2024 7:47 AM EST Lamonte Humphreys MD LAB BLOOD ORDERABLES [facility] [address] [place] [address], * Lipase (02/06/2024 7:25 AM EST) Lipase 39 13 - 75 unit/L LAB CHEMISTRY METHOD 02/06/2024 8:17 AM [facility] Blood Venous blood specimen / Unknown Venipuncture / Unknown 02/06/2024 7:25 AM EST 02/06/2024 7:47 AM EST Lamonte Humphreys MD LAB BLOOD ORDERABLES Performing Organization Address [facility]/ZIP Co de Phone Number [facility] [address] [place] [address], * (ABNORMAL) Venous blood gas (02/06/2024 7:25 AM EST) pH, Terence 7.47(H) 7.32 - 7.42 pH 02/06/2024 7:50 AM [facility] pCO2, Terence 36(L) 41 - 51 mmHg 02/06/2024 7:50 AM [facility] pO2, Terence 35 25 - 40 mmHg 02/06/2024 7:50 AM [facility] HCO3, Venous 26.2(H) 22.0 - 26.0 mmol/L 02/06/2024 7:50 AM [facility] O2 Sat, Terence 70.6 % 02/06/2024 7:50 AM [facility] Base Excess, Terence 2.7(H) -2.0 - 2.0 mmol/L 02/06/2024 7:50 AM [facility] Blood Venous blood specimen / Unknown Venipuncture / Unknown 02/06/2024 7:25 AM EST 02/06/2024 7:47 AM EST Lamonte Humphreys MD LAB BLOOD ORDERABLES [facility] [address] [place] [address], [place] [phone] * (ABNORMAL) Comprehensive metabolic panel (02/06/2024 7:25 AM EST) Only the most recent of2 resultswithin the time period is included. Sodium 134 133 - 145 mmol/L LAB CHEMISTRY METHOD 02/06/2024 8:44 AM [facility] Potassium 4.1 3.5 - 5.5 mmol/L LAB CHEMISTRY METHOD 02/06/2024 8:44 AM [facility] Chloride 100 96 - 110 mmol/L LAB CHEMISTRY METHOD 02/06/2024 8:44 AM [facility] CO2 27 21 - 32 mmol/L LAB CHEMISTRY METHOD 02/06/2024 8:44 AM [facility] Anion Gap 7 3 - 11 LAB CHEMISTRY METHOD 02/06/2024 8:44 AM [facility] Glucose 356(H) 70 - 100 mg/dL LAB CHEMISTRY METHOD 02/06/2024 8:44 AM [facility] BUN 12 5 - 25 mg/dL LAB CHEMISTRY METHOD 02/06/2024 8:44 AM [facility] Creatinine 0.91 0.70 - 1.30 mg/dL LAB CHEMISTRY METHOD 02/06/2024 8:44 AM [facility] eGFR 111 >=60 mL/min/1. 73m2 LAB CHEMISTRY METHOD 02/06/2024 8:44 AM [facility] Comment:Calculation based on the??Chronic Kidney Disease Epidemiology Collaboration (CKD-EPI) equation refit??without adjustment for race. BUN/Creatinine Ratio 13.2 LAB CHEMISTRY METHOD 02/06/2024 8:44 AM [facility] Calcium 9.7 8.5 - 10.5 mg/dL LAB CHEMISTRY METHOD 02/06/2024 8:44 AM [facility] AST (SGOT) 18 10 - 42 unit/L LAB CHEMISTRY METHOD 02/06/2024 8:44 AM [facility] ALT (SGPT) 22 10 - 60 unit/L LAB CHEMISTRY METHOD 02/06/2024 8:44 AM [facility] Alkaline Phosphatase 89 42 - 121 unit/L LAB CHEMISTRY METHOD 02/06/2024 8:44 AM [facility] Total Protein 8.4(H) 6.0 - 8.0 g/dL LAB CHEMISTRY METHOD 02/06/2024 8:44 AM [facility] Albumin 4.6 3.2 - 5.0 g/dL LAB CHEMISTRY METHOD 02/06/2024 8:44 AM [facility] Total Bilirubin 0.8 0.0 - 1.4 mg/dL LAB CHEMISTRY METHOD 02/06/2024 8:44 AM [facility] Blood Venous blood specimen / Unknown Venipuncture / Unknown 02/06/2024 7:25 AM EST 02/06/2024 7:47 AM EST Scot A Petr VELEZ LAB BLOOD ORDERABLES Performing Organization Address City/State/[facility] Co de Phone Number [facility] [address] [place] [address], * CT Neck Soft Tissue w Contrast (01/31/2024 2:06 AM EST) Anatomical Region Laterality Modality Head and Neck Computed Tomogra phy 01/31/2024 2:57 AM EST Impressions 01/31/2024 2:57 AM EST Impression: 1. Tubular hypodense area within the medial aspect of the left mylohyoid muscle is indeterminate. This shows no abnormal enhancement or inflammatory change. 2. The right neck is unremarkable. This document has been electronically signed by: Catina Luna MD on 01/31/2024 02:57:07 Narrative 01/31/2024 2:[address] soft tissue neck with contrast Comparison: None Findings: Within the medial aspect of the left mylohyoid muscle, there is a tubular 2.2 x 0.8 x 0.8 cm area of hypodensity. There are otherwise no masses or fluid collections. No adenopathy. Pharyngeal mucosal space, parapharyngeal fat, prevertebral tissues, and epiglottis normal. Salivary and thyroid glands are normal. C5-C6 block vertebra with fused facet joints. No acute fractures. Visualized intracranial contents unremarkable. Lung apices clear. Procedure Note Catina Luna MD - 01/31/2024 CT soft tissue neck with contrast Comparison: None Findings: Within the medial aspect of the left mylohyoid muscle, there is atubular 2.2 x 0.8 x 0.8 cm area of hypodensity. There are otherwise no masses or fluid collections. No adenopathy. Pharyngeal mucosal space, parapharyngeal fat, prevertebral tissues, and epiglottis normal. Salivary and thyroid glands are normal. C5-C6 block vertebra with fused facet joints. No acute fractures. Visualized intracranial contents unremarkable. Lung apices clear. IMPRESSION: Impression: 1. Tubular hypodense area within the medial aspect of the left mylohyoid muscle is indeterminate. This shows no abnormal enhancement or inflammatory change. 2. The right neck is unremarkable. This document has been electronically signed by: Catina Mosley MD on 01/31/2024 02:57:[address] PROCEDURES * (ABNORMAL) Basic metabolic panel (01/31/2024 12:49 AM EST) Sodium 137 133 - 145 mmol/L LAB CHEMISTRY METHOD 01/31/2024 1:26 AM EST [facility] Potassium 4.1 3.5 - 5.5 mmol/L LAB CHEMISTRY METHOD 01/31/2024 1:26 AM EST [facility] Chloride 104 96 - 110 mmol/L LAB CHEMISTRY METHOD 01/31/2024 1:26 AM [facility] CO2 27 21 - 32 mmol/L LAB CHEMISTRY METHOD 01/31/2024 1:26 AM [facility] Anion Gap 6 3 - 11 LAB CHEMISTRY METHOD 01/31/2024 1:26 AM [facility] Glucose 280(H) 70 - 100 mg/dL LAB CHEMISTRY METHOD 01/31/2024 1:26 AM [facility] BUN 14 5 - 25 mg/dL LAB CHEMISTRY METHOD 01/31/2024 1:26 AM [facility] Creatinine 0.91 0.70 - 1.30 mg/dL LAB CHEMISTRY METHOD 01/31/2024 1:26 AM [facility] eGFR 111 >=60 mL/min/1. 73m2 LAB CHEMISTRY METHOD 01/31/2024 1:26 AM [facility] Comment:Calculation based on the??Chronic Kidney Disease Epidemiology Collaboration (CKD-EPI) equation refit??without adjustment for race. BUN/Creatinine Ratio 15.4 LAB CHEMISTRY METHOD 01/31/2024 1:26 AM [facility] Calcium 9.5 8.5 - 10.5 mg/dL LAB CHEMISTRY METHOD 01/31/2024 1:26 AM [facility] Blood Venous blood specimen / Unknown Venipuncture / Unknown 01/31/2024 12:49 AM EST 01/31/2024 1:00 AM EST Nikole WADE LAB BLOOD ORDERABLES [facility] [address] [place] [address], * XR Lumbar Spine 2-3 Views (01/26/2024 12:13 PM EST) Anatomical Region Laterality Modality Spine, L-spine Radiographic Zina ging 01/26/2024 12:2 0 PM EST Impressions 01/26/2024 12:23 PM EST Impression: 1. Normal variant segmentation. 2. No lumbar spine fracture or subluxation. -------- FINAL REPORT -------- Dictated By: Edilma Camara Dictated Date: 01/26/2024 12:20 ET Assigned Physician: Edilma Camara Reviewed and Electronically Signed By: Edilma Camara Signed Date: 01/26/2024 12:23 ET Workstation ID: [id number] Transcribed By: Self Edit Transcribed Date: 01/26/2024 12:20 ET Narrative 01/26/2024 12:23 PM EST History: Low back pain. [place] pop when bending over 2 days ago. Comparison: CT abdomen/pelvis 11/02/23 Findings: AP, lateral and coned lateral views. There are 4 nonrib-bearing lumbar-type vertebra and a transitional lumbosacral segment which will be designated L5. There is a rudimentary L5-S1 disc. The vertebral bodies maintain normal height. The disc spaces are preserved. Mild anterior vertebral endplate spurring is seen. The apophyseal joints are intact. No fractures or osseous destructive lesions are seen. The sacroiliac joints are well-maintained. Vasa deferentia calcification is noted, typically seen in the setting of diabetes. Procedure Note Edilma Camara MD - 01/26/2024 History: Low back pain. [place] pop when bending over 2 days ago. Comparison: CT abdomen/pelvis 11/02/23 Findings: AP, lateral and coned lateral views. There are 4 atlvsy-ocaafvvirxdny-muwp vertebra and a transitional lumbosacral segment which will bedesignated L5. There is a rudimentary L5-S1 disc. The vertebral bodies maintain normal height. The disc spaces arepreserved. Mild anterior vertebral endplate spurring is seen. Theapophyseal joints are intact. No fractures or osseous destructive lesionsare seen. The sacroiliac joints are well-maintained. Vasa deferentia calcification is noted, typically seen in the setting ofdiabetes. IMPRESSION: Impression: 1. Normal variant segmentation. 2. No lumbar spine fracture or subluxation. -------- FINAL REPORT -------- Dictated By: Edilma Camara Dictated Date: 01/26/2024 12:20 ET Assigned Physician: Edilma Camara Reviewed and Electronically Signed By: Edilma Camara Signed Date: 01/26/2024 12:23 ET Workstation ID: [id number] Transcribed By: Self Edit Transcribed Date: 01/26/2024 12:20 ET José Miguel Parramarkus DO IMG XR PROCEDURES * XR Foot 3+ Views Right (12/24/2023 8:04 PM EST) Anatomical Region Laterality Modality Lower Extremities, Foot Right Radiogra phic Imaging 12/25/2023 8:32 AM EST Impressions 12/25/2023 8:33 AM EST No acute deformity. ??Mild degenerative changes are noted throughout. ??Alignment is maintained. ??Very minimal hallux valgus. -------- FINAL REPORT -------- Dictated By: Elias Garcia Dictated Date: 12/25/2023 08:32 ET Assigned Physician: Elias Garcia Reviewed and Electronically Signed By: Elias Garcia Signed Date: 12/25/2023 08:33 ET Workstation ID: [id number] Transcribed By: Self Edit Transcribed Date: 12/25/2023 08:32 ET Narrative 12/25/2023 8:33 AM EST PROCEDURE: XR FOOT 3+ VIEWS RIGHT INDICATION: pain in extremities COMPARISON: None Procedure Note Elias Garcia MD - 12/25/2023 PROCEDURE: XR FOOT 3+ VIEWS RIGHT INDICATION: pain in extremities COMPARISON: None IMPRESSION: No acute deformity. Mild degenerative changes are noted throughout.Alignment is maintained. Very minimal hallux valgus. -------- FINAL REPORT -------- Dictated By: Elias Garcia Dictated Date: 12/25/2023 08:32 ET Assigned Physician: Elias Garcia Reviewed and Electronically Signed By: Elias Garcia Signed Date: 12/25/2023 08:33 ET Workstation ID: [id number] Transcribed By: Self Edit Transcribed Date: 12/25/2023 08:32 ET Senia WADE IMG XR PROCEDURES from Last 3 Months Care Teams Director Digital Communications Relationship Specialty Start Date End Date Matilde Calabrese MD [address] [phone] PCP - General 11/22/23
--- OUTSIDE RECORDS SUMMARY | 2024-03-12 17:23 | XMS_ITS | Encounter Summary ---
Author Organization [employer] Address [address] [place] [address] Care Team Providers Care Administration Specialist Name Role Phone Matilde Calabrese MD Primary Care Provide r Reason for Visit * Reason Comments Eye Pain Right eye pain since Sunday Encounter Details Date Type Department Care Team (Late st Contact Info) Description 03/09/2024 10:05 PM EST - 03/10/2024 1:10 AM EST Emergency [facility] Emergency [address] [place] [address] Ocular migraine (Primary Dx) Discharge Disposition: Home or Self Care Social History Tobacco Use Types Packs/Day Years [...] - - Weight 122 kg (270 lb) 03/09/2024 10:08 PM EST Height 172.7 cm (5' 8 ) 03/09/2024 10:08 PM EST Body Mass Index 41.05 03/09/2024 10:08 PM EST documented in this encounter Functional Status [...] No 02/04/2024 documented as of this encounter Discharge Instructions * Discharge Instructions* SHERI Ibanez - 03/10/2024 1:03 AM EST You are seen in the ER today for pain behind the right eye. We did do an eye exam, checked your pressures and your eyes, and made sure there were no scratches on the surface of your eye. Everything we looked at today was normal. We do not see any signs of infection at this time. Tylenol for pain. Plenty of fluids. Return for changes to vision, worst headache of your life, pain with extraocular movement, bulging of the eye, focal neurologic deficit, or vomiting. It was a pleasure caring for you today in the emergency department. Please return to the emergency department if you begin to experience any new onset chest pain, shortness of breath, uncontrolled fevers, severe abdominal pain, loss of consciousness, uncontrolled vomiting, uncontrolled diarrhea, or for any other reason you feel is necessary. Please follow-up with your PCP about this visit. Examination and treatment you received in the emergency department has been rendered on an EMERGENCY basis only. It is not intended to be a substitute for or an effort to provide complete medical care. You should follow-up with your primary care provider. Please report to your physician any new or remaining problems, because it is impossible to recognize and treat all elements of injury or illness in a single emergency department visit. If you do not have a primary care provider or require a referral, a follow-up doctor maintenance and operations supervisor for the emergency department will be provided in your discharge packet. In the event that you're unable to obtain a followup appointment in a timely fashion, OR you are not getting any better, OR you are getting worse, OR you develop any symptoms of concern, please return here immediately for further evaluation. The emergency department is open 24 hours a day, 7 days aweek. Your discharge report is based on information that was available when you were in the emergency department If you do not have a primary care provider, please contact one of the following to make arrangements to follow up. [facility] [place] [facility] * Attachments The following attachments cannot be sent through Care Everywhere. * Migraine Headache (Syriac) documented in this encounter Discharge Disposition Disposition Code Departure Means Destination Comment s Home or Self Care Discharge instructions reviewed with pt, printed copy provided. Pt educated on home care of migraine, as well as S/S to watch for and when to return to ED. Pt to return if he experiences any changes in vision, neuro deficits, vomiting, bulging eye, pain when moving eye. Pt verbalized understanding and denied having any questions. Pt ambulated out of ED independently with an even and steady gait in no apparent distress. documented in this encounter Progress Notes * Chris Carrillo RN - 03/09/2024 10:02 PM EST Pt comes in with c/o right eye pain since Sunday. Pt reports intermittent blurry vision, visiting nurse assessed and advise he come to ER due to hx of cellulitis. * SHERI Ibanez - 03/09/2024 9:59 PM EST Emergency Medicine Note Patient Name: Raji Anderson Initial Evaluation: 03/09/2024 : 1985 Patient's PCP: Matilde Hudson MD Emergency Physician: SHERI Ibanez History of Present Illness Chief Complaint: Chief Complaint Patient presents with ??? Eye Pain Right eye pain since Sunday HPI: 38-year-old male patient history of insulin-dependent diabetes, hypertension presents the ER today reporting right-sided headache and eye pain. Patient has not taken any OTC medications for this. He reports that this started around Sunday feels like a headache behind the right eye. Reports intermittent blurry vision that is somewhat normal for this patient. He was seen by his visiting nurse today and was told to come in for evaluation. Patient denies any redness of the eyeball, denies painwith extraocular movements. Denies redness, warmth, or swelling to the orbit area. Denies fever or chills. ROS: I have performed a ROS with the pertinent positives and negatives documented in the history ofpresent illness. Previous History Past Medical History: Diagnosis Date ??? Diabetes mellitus (CMS/HCC) ??? Disease of thyroid gland ??? Hypertension ??? Sleep apnea Past Surgical History: Procedure Laterality Date ??? OTHER SURGICAL HISTORY Left 04/16/2023 PROCEDURE: AK I&D BELOW FASCIA FOOT 1 BURSAL SPACE ??? OTHER SURGICAL HISTORY Left 04/18/2023 PROCEDURE: AK INCISION BONE CORTEX FOOT; COMMENT: left, distal hallux ??? OTHER SURGICAL HISTORY 04/18/2023 PROCEDURE: AK REPAIR INTERMEDIATE N/H/F/XTRNL GENT 2.5CM/< ??? TOE SURGERY Left Social History Tobacco Use ??? Smoking status: Former Types: Cigarettes Substance Use Topics ??? Alcohol use: Not Currently ??? Drug use: Yes Types: Marijuana/Cannabis No family history on file. is allergic to ibuprofen and iodinated contrast media. No current facility-administered medications on file prior to encounter. Current Outpatient Medications on File Prior to Encounter Medication Sig Dispense Refill ??? [] clotrimazole (LOTRIMIN) 1 % external solution Apply topically 2 (two) times a day. Apply to nails and skin (Patient not taking: Reported on 02/04/2024) 30 mL 2 Physical Exam Physical Exam Constitutional: General: He is not in acute distress. Appearance: Normal appearance. He is not ill-appearing, toxic-appearing or diaphoretic. HENT: Head: Normocephalic and atraumatic. Eyes: Extraocular Movements: Extraocular movements intact. Pupils: Pupils are equal, round, and reactive to light. Comments: No scleral injection. No orbital swelling or periorbital swelling or edema or erythema. No discharge noted. No evidence of corneal abrasion or foreign body. Pulmonary: Effort: Pulmonary effort is normal. Skin: General: Skin is warm. Neurological: General: No focal deficit present. Mental Status: He is alert and oriented to person, place, and time. Mental status is at baseline. Psychiatric: Mood and Affect: Mood normal. Behavior: Behavior normal. Thought Content: Thought content normal. Judgment: Judgment normal. ED Triage Vitals [03/09/242207] Temp Heart Rate Resp BP 36.4 ??C (97.5 ??F) 87 18 115/81 SpO2 Temp Source Heart Rate Source Patient Position 100 % Oral -- Sitting BP Location FiO2 (%) Right arm;Upper -- Results Labs Reviewed - No data to display Abnormal Labs Reviewed - No data to display No orders to display I have discussed the incidental/abnormal imaging and/or lab abnormalities with the patient and haveinstructed them the need for further evaluation and workup with their primary care doctor. I have provided the patient with a paper copy of the abnormality. The laboratory results, imaging results and other diagnostic exam results were reviewed in the EMR. EKG Interpretation Critical Care Time None Medical Decision Making Medications proparacaine (ALCAINE) 0.5 % ophthalmic solution 2 drop (2 drops Right Eye Given 03/09/24 5285) fluorescein 1 mg ophthalmic strip 1 strip (1 strip Right Eye Given 03/09/24 7858) Medical Decision Making Differential diagnose include but not limited to: Acute anterior closure glaucoma Migraine headache Tension headache Dehydration Orbital cellulitis Preorbital cellulitis Diabetic retinopathy In short 38-year-old male patient poorly controlled diabetic presenting for 3 days of right-sided headache and eye pain. On arrival vitals are stable patient afebrile. Patient sitting comfortably in bed nontoxic and in no acute distress, hemodynamically stable. Visual acuity intact. Pupils equal round reactive, no exophthalmos no pain with extraocular movement and no erythema, edema, warmth, or swelling noted to the orbital area. Mildly tender to palpation over the inferior orbit area otherwise unremarkable. Will check for pressure increase and for corneal abrasion. Otherwise we will treat for pain with Tylenol and reevaluate. ED Course as of 03/10/24153 [place] Mar 09, 2024 2322 Pressure is normal in the right eye at 12, no evidence of corneal abrasion, will give migrainecocktail for report of a throbbing sensation on the right side of his head. Will reevaluate. [ES] Mon Mar 10, 2024 0101 Reporting improvement in symptoms and requesting discharge at this time. Still reporting mild sensation of throbbing behind the right eye, but did discuss case with Dr. Humphreys and no further workup needed at this time. No change to vision, onset was 3 days ago and gradual, not thunderclap sensation. Will discharge home. Did discuss strict return precautions including pain with extraocular movement, bulging of the eye, worst headache of his life, focal neurologic deficit, or vomiting. [ES] ED Course User Index [ES] SHERI Ibanez Clinical Impressions as of 03/10/24153 Ocular migraine Procedures Procedures Diagnosis No diagnosis found. Disposition Data Unavailable ED Prescriptions None Physician Attestation SHERI Ibanez 03/09/24 2310 SHERI Ibanez 03/10/24153 Associated attestation - Lamonte Humphreys MD - 03/10/2024 11:27 PM EST The PA has seen, evaluated, and treated the patient. I, Dr. Humphreys, discussed the case with the PA,have reviewed the record, and agree with the documentation as written, except as noted. Lamonte Humphreys MD documented in this encounter Plan of Treatment Upcoming Encounters Date Type Department Care Team (Late st Contact Info) Description 03/25/2024 8:15 AM EST Office Visit Orthopedic Surgery - [place] [address] [facility] [address] [place] [address] Elias Agee DPM [address] [place] [address] documented as of this encounter Visit Diagnoses Diagnosis Ocular migraine- Primary Variants of migraine, not elsewhere classified, without mention of intractable migraine without mention of status migrainosus documented in this encounter Administered Medications Inactive Administered Medications - up to 3 most recent administrations Medication Order MAR Action Action Date Dose Rate Site acetaminophen (TYLENOL) tablet 1,000 mg 1,000 mg, oral, Once, On 03/09/24 at 2311, For 1 dose Given 03/09/2024 11:18 PM EST 1,000 mg diphenhydrAMINE (BENADRYL) injection 25 mg 25 mg, intravenous, Once, On 03/09/24 at 2320, For 1 dose Given 03/09/2024 11:33 PM EST 25 mg fluorescein 1 mg ophthalmic strip 1 strip 1 strip, Right Eye, Once, On 03/09/24 at 2241, For 1 dose Given 03/09/2024 10:45 PM EST 1 strip ketorolac (TORADOL) injection 15 mg 15 mg, intravenous, Once, On 03/09/24 at 2320, For 1 dose Given 03/09/2024 11:32 PM EST 15 mg metoclopramide (REGLAN) injection 5 mg 5 mg, intravenous, Once, On 03/09/24 at 2320, For 1 dose, Doses LESS than or equal to 10 mg can be given IV push undiluted over 1 minute Given 03/09/2024 11:35 PM EST 5 mg proparacaine (ALCAINE) 0.5 % ophthalmic solution 2 drop 2 drop, Right Eye, Once PRN Procedure, eye exam, Starting on 03/09/24 at 2240, For 1 dose Given 03/09/2024 10:44 PM EST 2 drops sodium chloride 0.9 % bolus 1,000 mL 1,000 mL, intravenous, at 2,000 mL/hr, Administer over 30 Minutes, Once, On 03/09/24 at 2320, For 1 dose Rate/Dose Verify 03/10/2024 12:27 AM EST 2000 mL/hr New Bag 03/09/2024 11:30 PM EST 1,000 mL 2000 mL/hr documented in this encounter Active and Recently Administered Medications Times are shown in EST. Scheduled Medication Order 03/08/2024 03/09/2024 03/10/2024 acetaminophen (TYLENOL) tablet 1,000 mg (COMPLETED) 1,000 mg, oral, Once, On 03/09/24 at 2311, For 1 dose 2318 (Given - Provider: Juli Davenport RN) diphenhydrAMINE (BENADRYL) injection 25 mg (COMPLETED) 25 mg, intravenous, Once, On 03/09/24 at 2320, For 1 dose 2333 (Given - Provider: Juli Davenport RN) fluorescein 1 mg ophthalmic strip 1 strip (COMPLETED) 1 strip, Right Eye, Once, On 03/09/24 at 2241, For 1 dose 224 (Given - Provider: Alisha Grey RN - Comment: ADMINISTERED BY PROVIDER.) ketorolac (TORADOL) injection 15 mg (COMPLETED) 15 mg, intravenous, Once, On 03/09/24 at 2320, For 1 dose 233 (Given - Provider: Juli Davenport RN) metoclopramide (REGLAN) injection 5 mg (COMPLETED) 5 mg, intravenous, Once, On 03/09/24 at 2320, For 1 dose, Doses LESS than or equal to 10 mg can be given IV push undiluted over 1 minute 2334 (Given - Provider: Juli Davenport RN) sodium chloride 0.9 % bolus 1,000 mL (COMPLETED) 1,000 mL, intravenous, at 2,000 mL/hr, Administer over 30 Minutes, Once, On 03/09/24 at 2320, For 1 dose 2330 (New Bag - Provider: Juli Davenport RN) 0027 (Rate/Dose Verify - Provider: Juli Davenport RN)0101 (Stopped - Provider: Juli Davenport RN) PRN Medication Order 03/08/2024 03/09/2024 03/10/2024 proparacaine (ALCAINE) 0.5 % ophthalmic solution 2 drop (COMPLETED) 2 drop, Right Eye, Once PRN Procedure, eye exam, Starting on 03/09/24 at 2240, For 1 dose 224 (Given - Provider: Alisha Grey RN - Comment: ADMINISTERED BY PROVIDER.) documented in this encounter Care Teams Administration Specialist Relationship Specialty Start Date End Date Matilde Calabrese MD [address] [place] [phone] PCP - General 11/22/23 documented as of this encounter
--- OUTSIDE RECORDS SUMMARY | 2024-03-12 17:23 | XMS_ITS | Encounter Summary ---
Author Organization [employer] Address [address] [place] [address] Care Team Providers Care Distributor Advertising Material Name Role Phone Matilde Calabrese MD Primary Care Provide r Reason for Visit * Reason Comments Follow-up Diabetic foot exam Encounter Details Date Type Department Care Team ([facility] st Contact Info) Description 03/11/2024 8:45 AM EST Office Visit Orthopedic Surgery [facility] [address] [facility] [address] [place] [phone] Elias Agee, DPM 175 [place] [address] Cellulitis of left foot (Primary Dx); Dermatophytosis of nail; Ingrowing nail; Diabetic mononeuropathy simplex (CMS/HCC); Pain in toe of left foot; Pain in toe of right foot Social History Tobacco Use Types Packs/Day Years [...] Sign Reading Time Taken Comments Blood Pressure - - Pulse - - Temperature - - Respiratory Rate - - Oxygen Saturation - - Inhaled Oxygen Concentration - - Weight 122 kg (270 lb) 03/11/2024 8:19 AM EST Height 172.7 cm (5' 7.99 ) 03/11/2024 8:19 AM ES T Body Mass Index 41.06 03/11/2024 8:19 AM EST documented in this encounter Functional [...] No 02/04/2024 documented as of this encounter Ordered Prescriptions Prescription Sig Dispensed Refills Start Date End Da te amoxicillin-clavulanate (Augmentin) 875-125 mg per tablet Take 1 tablet by mouth 2 (two) times a day. 20 tablet 03/11/2024 documented in this encounter Progress Notes * Elias Agee, DWAINEM - 03/11/2024 8:45 AM EST Last PCP visit:Referring 11-21-23 Dr Tristan Jackson Presents today as a type II diabetic uncontrolled neuropathy numbness burning tingling states his last A1c was 15 he states that he was transitioning to insurance he was not taking any medications reports that he has very thickened painful nails he states he almost lost his big toe secondary chronic ingrowing nails is very thick painful and bothering him pains, is a 7 on 10 visual analog scale Reports increased pain discomfort of his left great toe swelling achy throbbing he has been on for last 2 weeks he is worried about infection ROS: GENERAL: Pt denies nausea, fever, vomiting, chills, or shortness of breath. Pt in NAD. CARDIOLOGY: pt denies chest pain, palpitations LUNGS: pt denies shortness of breath MUSCULOSKELETAL: See HPI, otherwise no joint pain or swelling, back pain, or muscle pain. SKIN: see HPI, otherwise no lesions, rash or itching NEURO: No persistent headache, weakness or numbness The remainder of the review of systems is noncontributory PAST MEDICAL HISTORY: Patient Active Problem List Diagnosis Sleep apnea Uncontrolled type II diabetic SOCIAL HISTORY: Social History Tobacco Use Smoking status: Former Types: Cigarettes Smokeless tobacco: Not on file Substance Use Topics Alcohol use: Not Currently ACTIVE MEDICATIONS: No outpatient medications have been marked as taking for the 03/11/24 encounter (Office Visit) with Elias Agee DPM. ALLERGIES: Allergies Allergen Reactions Ibuprofen Renal Impairment Iodinated Contrast Media Renal Impairment PHYSICAL EXAM: Visit Vitals Ht 1.727 m (67.99 ) Wt 122 kg (270 lb) BMI 41.06 kg/m?? Smoking Status Former BSA 2.32 m?? PODIATRIC EXAMINATION: GENERAL: Patient appears well nourished, with NAD. VASCULAR: Dorsalis pedis pulses are 2/4 bilaterally and Posterior tibial pulses are 2/4 bilaterally. Capillary filling time within normal limits the digits. No pallor on elevation or rubor on dependency. Positive hair growth. No varicosities. Denies rest pain or claudication pain. NEUROLOGICAL: Sharp/dull sensation intact, protective sensation intact 10/10 with 5.07 semmes french bilaterally, vibratory sensation with tuning fork intact to the tibial tuberosity. ORTHOPEDIC: Good muscle strength 5/5 of all flexors and extensors. Dorsi flexion of ankle ,10 degrees, plantar flexion WNL. No muscle atrophy. DERMATOLOGICAL:.Abnormal curvature both great toenails and the growth in the medial lateral nail folds no signs of acute cellulitis at this time Toenails: Left Toenail(s) 1-5: Crumbling upon debridement, subungual debris, discoloration, dystrophy, elongation, mycotic appearance, onychomycosis, pain and thickening. Right Toenail(s) 1-5: Crumbling upon debridement, subungual debris, discoloration, dystrophy, elongation, mycotic appearance, onychomycosis, pain and thickening. Annular scaling bilateral feet moccasin distribution Cellulitis of left great toe from ingrown nail medial nail fold left great toe BIOMECHANICS: Ankle ROM WNL, STJ ROM wnl, MTJ ROM wnl, 1st MPJ ROM wnl. IMAGING: IMPRESSION: 1. Cellulitis of left foot 2. Dermatophytosis of nail 3. Ingrowing nail 4. Diabetic mononeuropathy simplex (CMS/HCC) 5. Pain in toe of left foot 6. Pain in toe of right foot PLAN: Pt was seen and examined, history reviewed. Cellulitis of the left foot discussed and reviewed Patient being a diabetic poorly controlled discussed antibiotics Augmentin prescribed Follow-up in 2 weeks Debridement of ingrown mycotic toenails 6-10: Verbal informed consent was obtained from the patient. Greater than 6 nails were aseptically debrided in thickness and length with nail nippers Elias Agee DPM documented in this encounter Plan of Treatment Upcoming Encounters Date Type Department Care Team (Late st Contact Info) Description 03/25/2024 8:15 AM EST Office Visit Orthopedic Surgery - [place] [phone] [phone] Elias Agee DPM 175 [place] [address] documented as of this encounter Visit Diagnoses Diagnosis Cellulitis of left foot- Primary Dermatophytosis of nail Ingrowing nail Diabetic mononeuropathy simplex (CMS/HCC) Type II or unspecified type diabetes mellitus with neurological manifestations, not stated as uncontrolled Pain in toe of left foot Pain in soft tissues of limb Pain in toe of right foot Pain in soft tissues of limb documented in this encounter Care Teams Distributor Advertising Material Relationship Specialty Start Date End Date Matilde Calabrese MD [address] [place] [phone] PCP - General 11/22/23 documented as of this encounter
--- OUTSIDE RECORDS SUMMARY | 2024-03-12 17:24 | XMS_ITS | Encounter Summary ---
Author Organization [employer] Address [address] [place] [address] Care Team Providers Care Hop Separator Name Role Phone Matilde Calabrese MD Primary Care Provide r Kourtney Su PharmD Unavailable [phone] Cecily Pinedo RN Unavailable [phone] Encounter Details Date Type Department Care Team (Latest Contact Info) Description 02/27/2024 Travel Social History Tobacco Use Types Packs/Day Years Used Date Smoking Tobacco: Never Passive Smoke Exposure: Never Smokeless Tobacco: Never Alcohol Use Standard Drinks/Week Comments Never 0 (1 standard drink = 0.6 oz pur e alcohol) Alcohol Answer Date Recorded Frequency of Alcohol Consumption Not on file 12/27/2023 Average Number of Drinks Not on file 024 Frequency of Binge Drinking Not on file 08/2023 Score 0 12/27/2023 Depression Answer Date Recorded Patient Health Questionnaire-9 Score 18 12/27/2023 Patient Health Questionnaire-9 Score 18 12/27/2023 Last PHQ-9: Questionnaire Data Not on file 1 02/25/2023 Housing Stability Answer Date Recorded What is your housing situation today? I have sandy amaro 04/27/[address] you li ve. Do you have problems with any of the following? None of the above 04/27/2023 Food Insecurity Answer Date Recorded Within the past 12 months, y ou worried that your food would run out before you got money to buy more: Sometimes True 2023 Within the past 12 months,th e food you bought just didn't last and you didn't have enough money to get more: Sometimes True 01/16/2024 Transportation Answer Date Recorded In the past 12 months, has l ack of transportation kept you from medical appts, meetings, work or from getting things needed for daily living? Yes, it has kept me from medical appointments or getting medications. 01/16/2024 Utilities Answer Date Recorded In the past 12 months, has t he electric, gas, oil or water company threatened to shut off services in your home? No 03/13/2023 Depression Answer Date Recorded Patient Health Questionnaire-2 Score 4 12/27/2023 Internet Access Answer Date Recorded Internet Access Q1 Yes 01/16/2024 Internet Access Q2 Not on file 01/16/2024 Sex and Gender Information Value Date Recorded Sex Assigned at Male 12/19/2021 10:34 AM EDT Legal Sex Male 10:34 AM EDT Gender Identity Male 12/19/2021 10:34 AM EDT Sexual Orientation Straight 12/19/2021 10 :34 AM EDT documented as of this encounter Plan of Treatment Upcoming Encounters Date Type Department Care Team (Late st Contact Info) Description 03/18/2024 9:30 AM EST Medication Management [facility] [address] [place] [phone] Kourtney Su PharmD [address] [place] [phone] 05/06/2024 10:00 AM EDT Office Visit [facility] [address] [place] [phone] Matilde Calabrese MD [address] [place] [phone] documented as of this encounter Visit Diagnoses Not on filedocumented in this encounter Additional Health Concerns Assessment Noted Time PHQ-9 Depression Total Score: 18 024 9:55 AM EST documented as of this encounter Care Teams Hop Separator Relationship Specialty Start Date End Date Matilde Calabrese MD [address] [place] [phone] PCP - General Internal Medicine 11/23/23 Kourtney Su, PharmD [address] [place] [phone] Pharmacist Internal Medicine 12/05/23 Cecily Pinedo RN [address] [place] [phone] Platform Operations DirectorFormula Clerk 01/08/24 [facility] 01/09/24 documented as of this encounter
--- OUTSIDE RECORDS SUMMARY | 2024-03-12 17:24 | XMS_ITS | Encounter Summary ---
Author Organization [employer] Address [address] 7[address] [place] [address] Care Team Providers Care Tool Technician Name Role Phone Matilde Calabrese MD Primary Care Provide r Kourtney Su PharmD Unavailable [phone] Cecily Pinedo RN Unavailable [phone] Encounter Details Date Type Department Care Team (Late st Contact Info) Description 02/26/2024 Orders Only [facility] [address] [place], [place] [phone] Matilde Calabrese MD [address] [place] [address] Constipation, unspecified constipation type (Primary Dx) Social History Tobacco Use Types [...] the past 12 months, has t he [employer] gas, oil or water company threatened to [...] Description 03/18/2024 9:30 AM EST Medication Management [facility] [address] [place] [phone] Kourtney Su, PharmD [address] [place] [address] 05/06/2024 10:00 AM EDT Office Visit [facility] [address] [place] [address] Matilde Calabrese MD [address] [place] [address] documented as of this encounter Visit Diagnoses Diagnosis Constipation, unspecified constipation type- Primary documented in this encounter Additional Health Concerns Assessment Noted Time PHQ-9 Depression Total Score: 18 024 9:55 AM EST documented as of this encounter Care Teams Tool Technician Relationship Specialty Start Date End Date Matilde Calabrese MD [address] [place] [address] PCP - General Internal Medicine 11/23/23 Kourtney Su PharmD [address] [place] [address] Pharmacist Internal Medicine 12/05/23 Cecily Pinedo RN [address] [place] [phone] Physician NeonatologyBrim Plater 01/08/24 [facility] 01/09/24 documented as of this encounter
--- OUTSIDE RECORDS SUMMARY | 2024-03-12 17:24 | XMS_ITS | Encounter Summary ---
Author Organization [employer] Address [address] [place] [address] Care Team Providers Care Quarantine Inspector Name Role Phone Matilde Calabrese MD Primary Care Provide r Kourtney Su PharmD Unavailable [phone] Cecily Pinedo RN Unavailable [phone] Encounter Details Date Type Department Care Team (Late st Contact Info) Description 03/11/2024 Telephone [facility] MED[facility]INE [address] [place], [place] [phone] Kourtney Su, PharmD 230 [place] [address] Social History Tobacco Use Types Packs/Day Years [...] AM EDT documented as of this encounter Miscellaneous Notes * Telephone Encounter - Kourtney Su PharmD - 03/11/2024 4:47 PM EST [facility] outreached patient due to reported concern of hypoglycemia of which 2 hypoglycemic events noted from C[facility] 2 report from the past 2 weeks: 03/11/24: 68mg/dL 03/08/24: 67mg/dL Patient reports for the first event eating a large amount of ice cream and then experiencing hypoglycemia following this. He reports the second event having eaten one bowl of soup for dinner and nothing after then experiencing hypoglycemia in the middle of the night. Patient reports taking 1 or 2 glucose tablets to treat the hypoglycemia and retesting afterwards. Patient was educated on recommended administration of glucose tablets and to eat protein snack/mealonce glucose reaches normal limit. Patient stated understanding of this. Re-educated patient to add protein to snacks and to eat substantial meals to prevent hypoglycemia. Refill for glucose tablets prescribed. [facility] has scheduled follow up with patient next week. documented in this encounter Plan of Treatment Upcoming Encounters Date Type Department Care Team (Late st Contact Info) Description 03/18/2024 9:30 AM EST Medication Management [facility] MEDICINE [address] [place] [phone] Kourtney Su PharmD [address] [place] [address] 05/06/2024 10:00 AM EDT Office Visit [facility] [address] [place] [phone] Matilde Calabrese MD [address] [place] [phone] documented as of this encounter Visit Diagnoses Diagnosis Type 2 diabetes mellitus with hyperglycemia, with long-term current use of insulin ([facility])- Primary documented in this encounter Additional Health Concerns Assessment Noted Time PHQ-9 Depression Total Score: 18 024 9:55 AM EST documented as of this encounter Care Teams Quarantine Inspector Relationship Specialty Start Date End Date Matilde Calabrese MD [address] [place] [phone] PCP - General Internal Medicine 11/23/23 Kourtney Su PharmD [address] [place] [phone] Pharmacist Internal Medicine 12/05/23 Cecily Pinedo, ROSA [address] [place] [phone] Machine Silk Screen PrinterDot Etcher 01/08/24 [facility] 01/09/24 documented as of this encounter
--- OUTSIDE RECORDS SUMMARY | 2024-03-12 17:24 | XMS_ITS | Encounter Summary ---
Author Organization [employer] Address [address] [facility] 7t [place] [address] Care Team Providers Care Baker Pastry Name Role Phone Matilde Calabrese MD Primary Care Provide r Kourtney Su PharmD Unavailable [phone] Cecily Pinedo RN Unavailable [phone] Reason for Visit * Reason Comments Transition Of Care (Tcm) Encounter Details Date Type Department Care Team ([facility] st Contact Info) Description 03/11/2024 Patient Outreach [facility] MED[facility]INE [address] [place] [address] Matilde Calabrese MD 230 [place] [address] Transition Of Care (Tcm) Social History Tobacco Use Types Packs/Day Years [...] AM EDT documented as of this encounter Progress Notes * Pebbles Huston RN - 03/11/2024 8:49 AM EST 03/11/24 0849 Hospital Discharges and Admission for [facility] Type of Visit Emergency Department Date of Admission/Visit 03/09/24 (10:05pm) Date of Discharge 03/10/24 (10am) Facility [facility] Diagnosis Migraine with aura, not intractable, without status migrainosus Disposition Discharged Home * Eli Ramsay RN - 03/11/2024 8:49 AM EST Transition of Care Note Raji is going through a recent transition of care. Hospital Discharges and Admission for PCM Type of Visit: Emergency Department Date of Admission/Visit: 03/09/24 Date of Discharge: 03/09/24 Facility: [facility] Diagnosis: Ocular migraine Disposition: Discharged Home Follow-Up Actions Follow-Up Needed: Provider appointment Follow-Up Outcome: Spoke to Patient Initial Contact Date: 03/11/24 The full discharge summary is available on [facility] Recent Visits Date Type Provider Dept 03/03/24 Office Visit Charity Luna DO [facility] 02/15/24 Office Visit BRITTANY Mott [facility] Med [facility] Peds 02/02/24 Office Visit Wendy Wright NP [facility] 01/08/24 Office Visit Erin Bueno MD [facility] 12/27/23 Office Visit Matilde Hudson MD [facility] Medicine 11/14/23 Office Visit Matilde Hudson MD [facility] Medicine 03/20/23 Office Visit Matilde Hudson MD [facility] Medicine Showing recent visits within past 540 days with a meds authorizing provider and meeting all other requirements Today's Visits Date Type Provider Dept 03/11/24 Appointment Christian Fuchs MD [facility] Medicine Showing today's visits with a meds authorizing provider and meeting all other requirements Future Appointments Date Type Provider Dept 03/18/24 Appointment Kourtney Su PharmD [facility] Medicine Showing future appointments within next 150 days with a meds authorizing provider and meeting all other requirements TC placed to patient [phone] to status check. Patient reports his s/s continue to be the same.Patient reports the pressure behind his R eye continues. Patient reports he has pain whenever he isattempting to focus on something or when he moves his eye. Patient reports he develops a headache every time he is watching tv, reading a book etc. Patient had his eye pressure tested in the ED whichwas WNL. Patient denies having an showroom manager but is scheduled to see one on 05/20/24. Patient scheduled for re-evaluation for today at 3pm with Dr. Little d/t continued s/s. Patient to f/u PRN. documented in this encounter Plan of Treatment Upcoming Encounters Date Type Department Care Team (Late st Contact Info) Description 03/18/2024 9:30 AM EST Medication Management [facility] MEDICINE [address] [place] [address] PiersKourtney Basilio PharmD [address] [place] [phone] 05/06/2024 10:00 AM EDT Office Visit [facility] MEDICINE [address] [place] [address] [phone] Matilde Calabrese MD [address] [place] [address] [phone] documented as of this encounter Visit Diagnoses Not on filedocumented in this encounter Additional Health Concerns Assessment Noted Time PHQ-9 Depression Total Score: 18 024 9:55 AM EST documented as of this encounter Care Teams Baker Pastry Relationship Specialty Start Date End Date Matilde Calabrese MD [address] [place] [address] [phone] PCP - General Internal Medicine 11/23/23 Kourtney Su PharmD [address] [place] [phone] Pharmacist Internal Medicine 12/05/23 Cecily Pinedo, ROSA [address] [place] [address] Truck Railroad And Bus Motor MechanicExecutive Casino Host 01/08/24 [facility] 01/09/24 documented as of this encounter
--- OUTSIDE RECORDS SUMMARY | 2024-03-12 17:24 | XMS_ITS | Encounter Summary ---
Author Organization [employer] Address [address] 7[address] [place] [address] Care Team Providers Care Wrap Yarn Sorter Name Role Phone Matilde Calabrese MD Primary Care Provide r Kourtney Su PharmD Unavailable [phone] Cecily Pinedo RN Unavailable [phone] Reason for Visit * Reason Comments Toe Pain Encounter Details Date Type Department Care Team ([facility] st Contact Info) Description 03/03/2024 10:00 AM EST Office Visit [facility] 230 [place] [address] Charity Luna DO [address] [place] [address] Right foot pain (Primary Dx) Social History Tobacco Use Types [...] AM EDT documented as of this encounter Last Filed Vital Signs Vital Sign Reading Time Taken Comments Blood Pressure 142/97 03/03/2024 10:32 AM EST Pulse 90 03/03/2024 10:32 AM EST Temperature 36.8 ??C (98.2 ??F) 03/03/2024 10:[address] Respiratory Rate 18 03/03/2024 10:32 AM EST Oxygen Saturation 100% 03/03/2024 10:32 AM EST Inhaled Oxygen Concentration - - Weight 127 kg (280 lb) 03/03/2024 10:32 AM EST Height - - Body Mass Index 42.57 02/15/2024 9:54 AM EST documented in this encounter Progress Notes * Charity Luna DO - 03/03/2024 10:00 AM EST JULIO Anderson is a 38 y.o. male who presents for Sick Visit. He comes to [place] c/o pain in the middle of his R foot for 2 days. He says he woke up yesterday morning and had severe pain in the bottom of his foot when he stepped. He hasn't been able to wear regularshoes because of his pain but can't walk barefoot either. He has only been able to tolerate crocs. He has not noticed any rash or skin lesion. He denies any swelling. He thought that he might be having gout so he tried indomethacin without any relief. He doesn't know how much pain he's having because of the numbness. He takes gabapentin for nerve pain. He has a foot doctor in [place] that he saw a couple mos ago for his nail care and thinks that he has an appt next week. 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: Patient historic interpreter used: No Pain Location: R foot Severity: Severe Onset quality: Sudden Duration: 2 days Timing: Constant Progression: Unchanged Chronicity: New Associated symptoms: no abdominal pain, no chest pain, no cough, no diarrhea, no fever, no headaches, no nausea and no vomiting Risk factors: DM Review of Systems Constitutional: Negative for activity change, appetite change, fever and unexpected weight change. Respiratory: Negative for cough and chest tightness. Cardiovascular: Negative for chest pain and palpitations. Gastrointestinal: Negative for abdominal pain, diarrhea, nausea and vomiting. Musculoskeletal: Positive for arthralgias and gait problem. Neurological: Positive for numbness. Negative for dizziness, weakness and headaches. Patient Active Problem List Diagnosis Type 2 diabetes mellitus with hyperglycemia, with long-term current use of insulin ([facility]) Obstructive sleep apnea syndrome Morbid obesity ([facility]) Mood disorder ([facility]) Gout Flat foot Essential (primary) hypertension Hidradenitis suppurativa of multiple sites Acute ankle pain Paraspinal muscle spasm JASBIR (acute kidney injury) ([facility]) Acquired hypothyroidism Hospital discharge follow-up Cellulitis Chronic right shoulder pain Mixed anxiety and depressive disorder Nail disease Diabetic polyneuropathy associated with type 2 diabetes mellitus ([facility]) Bilateral wrist pain LLQ abdominal pain Abscess Hypertension Kidney disease Allergies Allergen Reactions Ibuprofen my dr says not to take it because my kidneys . Other Reaction(s): Renal Impairment But can take indomethacin without problems Iodinated Contrast Media Other Reaction(s): Renal Impairment OBJECTIVE Visit Vitals BP (!) 142/97 (BP Location: Right arm, Patient Position: Sitting, BP Cuff Size: Adult) Pulse 90 Temp 98.2 ??F (36.8 ??C) (Temporal) Resp 18 Wt 280 lb (127 kg) SpO2 100% BMI 42.57 kg/m?? Smoking Status Never BSA 2.47 m?? Physical Exam Constitutional: General: He is not in acute distress. Appearance: Normal appearance. Cardiovascular: Rate and Rhythm: Normal rate and regular rhythm. Heart sounds: Normal heart sounds. No murmur heard. Pulmonary: Effort: Pulmonary effort is normal. Breath sounds: Normal breath sounds. No wheezing or rhonchi. Musculoskeletal: Right foot: Swelling and tenderness present. No deformity or Charcot foot. Comments: Mild dorsal swelling R foot. Significant TTP R plantar midfoot Neurological: General: No focal deficit present. Mental Status: He is alert and oriented to person, place, and time. Cranial Nerves: No cranial nerve deficit. Motor: No weakness. Comments: Ambulates with limp Psychiatric: Mood and Affect: Mood normal. Assessment/Plan Diagnoses and all orders for this visit: Right foot pain Acute worsening midfoot pain, possibly 2/2 underlying neuropathy -referred for R foot XR -increase gabapentin to 300mg TID -encouraged standing doses tylenol -trial short course of tramadol for severe pain, 3 day supply given -f/u with podiatry next week as scheduled -advised contact [facility] if sx change or worsen, he agrees with plans --Follow-up with PCP as scheduled or sooner prn-- Current Outpatient Medications: acetaminophen (Tylenol 8 Hour) 650 MG ER tablet, Take 1 tablet (650 mg) by mouth every 8 (eight) hours if needed for mild pain. Do not crush, chew, or split., Disp: 50 tablet, Rfl: 1 amLODIPine (Norvasc) 10 MG tablet, Take 1 tablet by mouth once daily, Disp: 90 tablet, Rfl: 0 atorvastatin (Lipitor) 20 MG tablet, Take 1 tablet by mouth once daily, Disp: 90 tablet, Rfl: 0 baclofen (Lioresal) 10 MG tablet, Take 1 tablet (10 mg) by mouth 3 times daily., Disp: 90 tablet, Rfl: 0 benzoyl peroxide (Benzac AC) 10 % external wash, Use to wash affected areas nightly. Please be aware that may bleach towels/clothes., Disp: 142 g, Rfl: 2 Blood Glucose Monitoring Suppl (FreeStyle Lite) w/Device kit, 1 Units in the morning., Disp: 1 kit,Rfl: 0 Blood Pressure Monitoring (Blood Pressure Cuff) misc, 1 each Once daily., Disp: 1 each, Rfl: 0 carvedilol (Coreg) 6.25 MG tablet, Take 1 tablet by mouth twice daily, Disp: 180 tablet, Rfl: 0 clindamycin (Clindagel) 1 % gel, Apply topically Once per day. Apply to affected areas for HS., Disp: 60 g, Rfl: 2 Continuous Glucose Applications Instructor (FreeStyle Cherelle 2 Bryant) device, Scan sensor every 8 hours, Disp: 1 each, Rfl: 0 Continuous Glucose Sensor (FreeStyle Cherelle 2 Sensor) mis, Apply 1 sensor every 14 days, Disp: 2 each, Rfl: 1 CVS Glucose 4 g chewable tablet, CHEW 4 TABLETS EVERY 15 MINS NEEDED FOR HYPOGLYCEMIA, MY REPEATONCE, NOT COVERED, Disp: , Rfl: docusate sodium (Colace) 100 MG capsule, Take 1 capsule (100 mg) by mouth 2 times daily., Disp: 60 capsule, Rfl: 1 Dulaglutide (Trulicity) 3 MG/0.5ML solution auto-injector, Inject 0.5 mL (3 mg) under the skin 1 (one) time per week., Disp: 2 mL, Rfl: 3 FreeStyle lancets, 1 each by Other route 4 times daily., Disp: 100 each, Rfl: 11 gabapentin (Neurontin) 300 MG capsule, Take 1 capsule (300 mg) by mouth 3 times daily., Disp: 90 capsule, Rfl: 3 glucose blood (FreeStyle Precision Jefry Test) test strip, Use to test blood sugar 3 times daily, Disp: 100 each, Rfl: 12 insulin degludec (Tresiba FlexTouch) 100 UNIT/ML injection, Inject subcutaneously 18 units once daily, Disp: 15 mL, Rfl: 0 levothyroxine (Synthroid) 100 MCG tablet, Take 1 tablet (100 mcg) by mouth before breakfast., Disp:90 tablet, Rfl: 3 lisinopril (Prinivil) 10 MG tablet, Take 1 tablet (10 mg) by mouth Once per day., Disp: 30 tablet, Rfl: 11 lisinopril (Prinivil) 20 MG tablet, Take 1 tablet (20 mg) by mouth Once per day., Disp: 30 tablet, Rfl: 1 omeprazole OTC (PriLOSEC OTC) 20 MG EC tablet, Take 1 tablet (20 mg) by mouth before breakfast. Do not crush, chew, or split., Disp: 30 tablet, Rfl: 11 pen needle 32G x 4 mm misc, Use as instructed with insulin administration once daily, Disp: 100 each, Rfl: 0 polyethylene glycol, PEG, 3350 (MiraLax) 17 GM/SCOOP powder, Take 17 g by mouth Once per day., Disp: 527 g, Rfl: 1 traMADol (Ultram) 50 MG tablet, Take 1 tablet (50 mg) by mouth every 8 (eight) hours if needed for severe pain for up to 3 days., Disp: 9 tablet, Rfl: 0 UltiCare Alcohol Swabs 70 % pads, Use as directed with insulin administration once daily, Disp: 100each, Rfl: 3 Scribe Attestation: José Miguel Robins, am serving as a scribe to document services personally performed by Charity Stevens, based on the patient's response to questions by provider and provider's statements to me. 03/03/24 10:50 AM Physicians Attestation: Charity Robins DO, have reviewed the information by the scribe, José Miguel Keller, for accuracy and agree with its content. documented in this encounter Plan of Treatment Upcoming Encounters Date Type Department Care Team (Late st Contact Info) Description 03/18/2024 9:30 AM EST Medication Management [facility]INE [address] [place] [phone] Kourtney Su, EmmaD [address] [place] [phone] 05/06/2024 10:00 AM EDT Office Visit [facility] [address] [place] [address] [phone] Matilde Calabrese MD [address] [place] [phone] documented as of this encounter Procedures Procedure Name Priority Date/Time Associated Diagnosis Comments XR FOOT 3+ VIEWS RIGHT STAT 03/03/2024 10:49 AM EST Right foot pain documented in this encounter Results * XR Foot 3+ Views Right (03/03/2024 10:49 AM EST) Anatomical Region Laterality Modality Lower Extremities, Foot Right Radiogra phic Imaging 03/03/2024 10:4 9 AM EST Narrative 03/03/2024 11:09 AM EST ?[facility] ?[address] ?[place] [address] ?XRay Report ? Signed ? Patient: Anderson,Raji ?MR#: [id number] ? : 1985 ?Acct:[id number] ? Age/Sex: 38 / M ?ADM Date: 03/03/24 ? Loc: HO.HHCX ? Attending Dr: Charity Luna DO ? Ordering Physician: Charity Luna DO ?? Date of Service: 03/03/24 ?? Procedure(s): XR foot RT min 3V ?? Accession Number(s): [id number] ? cc: Charity Luna DO ? EXAMINATION: ??XR FOOT 3 OR MORE VIEWS RIGHT ? HISTORY: acute onset severe R midfoot pain, uncontrolled DM ? COMPARISON: There are no prior studies available for comparison. ? FINDINGS: ? Three views of the right foot are submitted. ??Osseous mineralization is ?? normal. ??There is no fracture or dislocation. ??The joint spaces are ?? preserved. ??The soft tissues are unremarkable. ? XR/XR foot RT min 3V ?? IMPRESSION: ? Unremarkable examination of the right foot. ? Electronically signed by: ??Mesfin Olivo MD ??03/03/2024 11:06 AM EST ?? RP ? Dictated By: ?Mesfin Olivo MD ? Signed By: ?<Electronically signed by Mesfin Olivo MD in OV> ?03/03/24 1106 ? DD/ 1049 ? TD/TT: 03/03/24 1058 ? Vegetable Washer: ? Procedure Note Rich, Salima - 03/03/2024 [facility] [address] [place] [address] XRay Report Signed Patient: Cedrick Anderson#: [id number] : 1985Acct:[id number] Age/Sex: 38 / MADM Date: 03/03/24 Loc: HO.HHCX Attending Dr: Charity Luna DO Ordering Physician: Charity Luna DO Date of Service: 03/03/24 Procedure(s): XR foot RT min 3V Accession Number(s): [id number] cc: Charity Luna DO EXAMINATION: XR FOOT 3 OR MORE VIEWS RIGHT HISTORY: acute onset severe R midfoot pain, uncontrolled DM COMPARISON: There are no prior studies available for comparison. FINDINGS: Three views of the right foot are submitted. Osseous mineralization is normal. There is no fracture or dislocation. The joint spaces are preserved. The soft tissues are unremarkable. XR/XR foot RT min 3V IMPRESSION: Unremarkable examination of the right foot. Electronically signed by: Mesfin Olivo MD 03/03/2024 11:06 AM EST Dictated By: Mesfin Olivo MD Signed By: <Electronically signed by Mesfin Olivo MD in OV> 03/03/24 1106 DD/ 1049 TD/TT: 03/03/24 1058 Vegetable Washer: Charity Luna DO IMG XR PROCEDURES Edited Res ult - Final documented in this encounter Visit Diagnoses Diagnosis Right foot pain- Primary Pain in soft tissues of limb documented in this encounter Additional Health Concerns Assessment Noted Time PHQ-9 Depression Total Score: 18 024 9:55 AM EST documented as of this encounter Care Teams Wrap Yarn Sorter Relationship Specialty Start Date End Date Matilde Calabrese MD [address] [place], [place] [phone] PCP - General Internal Medicine 11/23/23 Kourtney Su PharmD [address] [place] [address] Pharmacist Internal Medicine 12/05/23 Cecily Pinedo RN [address] [place] [phone] Casket InspectorActive Directory Specialist 01/08/24 [facility] 01/09/24 documented as of this encounter
--- OUTSIDE RECORDS SUMMARY | 2024-03-12 17:24 | XMS_ITS | Encounter Summary ---
Author Organization [employer] Address [address] [facility] [address] [place] [address] Care Team Providers Care Supervisor Park Workers Name Role Phone Matidle Calabrese MD Primary Care Provide r Kourtney Su PharmD Unavailable [phone] Cecily Pinedo RN Unavailable [phone] Encounter Details Date Type Department Care Team ([facility] st Contact Info) Description 03/12/2024 3:45 PM EST Office Visit [facility] [address] [place], [place] [phone] Anisha Gresham, OD [address] [place] [address] Arrived Social History Tobacco Use Types Packs/Day Years [...] got money to buy more: Sometimes True 11/27/ 2024 Within the past 12 months,th e food [...] Description 03/18/2024 9:30 AM EST Medication Management [facility] [address] [place] [phone] Kourtney Su, PharmD [address] [place] [phone] 05/06/2024 10:00 AM EDT Office Visit [facility] [address] [place] [phone] Matilde Calabrese MD [address] [place] [phone] documented as of this encounter Visit Diagnoses Not on filedocumented in this encounter Additional Health Concerns Assessment Noted Time PHQ-9 Depression Total Score: 18 024 9:55 AM EST documented as of this encounter Care Teams Supervisor Park Workers Relationship Specialty Start Date End Date Matilde Calabrese MD [address] [place] [phone] PCP - General Internal Medicine 11/23/23 Kourtney Su PharmD [address] [place] [phone] Pharmacist Internal Medicine 12/05/23 Cecily Pinedo RN [address] [place] [phone] [employer] 01/08/24 [facility] 01/09/24 documented as of this encounter
--- OUTSIDE RECORDS SUMMARY | 2024-03-12 17:24 | XMS_ITS | Clinical Summary ---
Author Organization [employer] Address [address] [facility] [address] [place] [address] Care Team Providers Care Hay Stacker Name Role Phone Matilde Calabrese MD Primary Care Provide r Kourtney Su PharmD Unavailable [phone] Cecily Pinedo RN Unavailable Allergies Active Allergy Reactions Criticality Noted Date Comments Ibuprofen 07/12/[address] not to take it because my kidneys . Other Reaction(s): Renal Impairment But can take indomethacin without problems Iodinated Contrast Media 05/11/2023 Other Reaction(s): Renal Impairment Medications Blood Glucose Monitoring Suppl (FreeStyle Lite) w/Device kit 1 Units in the morning. 1 kit 023 Active baclofen (Lioresal) 10 MG tablet Take 1 tablet (10 mg) by mouth 3 times daily. 90 tablet 023 Active levothyroxine (Synthroid) 100 MCG tabletIndication s:Acquired hypothyroidism Take 1 tablet (100 mcg) by mouth before breakfast. 90 tablet 3 024 2024 Active Continuous Glucose Creative Art Therapist (FreeStyle Cherelle 2 [place]) deviceIndication s:Type 2 diabetes mellitus with hyperglycemia, without long-term current use of insulin ([facility]) Scan sensor every 8 hours 1 each 024 Active glucose blood (FreeStyle Precision Jefry Test) test stripIndications :Type 2 diabetes mellitus with hyperglycemia, without long-term current use of insulin ([facility]) Use to test blood sugar 3 times daily 100 each 12 024 2024 Active lisinopril (Prinivil) 10 MG tabletIndication s:Essential (primary) hypertension Take 1 tablet (10 mg) by mouth Once per day. 30 tablet 11 11/07/2 024 2024 Active Continuous Glucose Sensor (FreeStyle Cherelle 2 Sensor) miscIndications: Type 2 diabetes mellitus with hyperglycemia, without long-term current use of insulin ([facility]) Apply 1 sensor every 14 days 2 each 1 Active FreeStyle lancetsIndicatio ns:Type 2 diabetes mellitus with hyperglycemia, with long-term current use of insulin ([facility]) 1 each by Other route 4 times daily. 100 each 11 Active amLODIPine (Norvasc) 10 MG tabletIndication s:Primary hypertension Take 1 tablet by mouth once daily 90 tablet Active carvedilol (Coreg) 6.25 MG tabletIndication s:Primary hypertension Take 1 tablet by mouth twice daily 180 tablet Active pen needle 32G x 4 mm miscIndications: Type 2 diabetes mellitus with hyperglycemia, with long-term current use of insulin ([facility]) Use as instructed with insulin administration once daily 100 each 024 2024 Active UltiCare Alcohol Swabs 70 % padsIndications: Type 2 diabetes mellitus with hyperglycemia, with long-term current use of insulin ([facility]) Use as directed with insulin administration once daily 100 each 3 Active omeprazole OTC (PriLOSEC OTC) 20 MG EC tablet Take 1 tablet (20 mg) by mouth before breakfast. Do not crush, chew, or split. 30 tablet 11 024 2024 Active Blood Pressure Monitoring (Blood Pressure Cuff) miscIndications: Essential (primary) hypertension 1 each Once daily. 1 each Active lisinopril (Prinivil) 20 MG tabletIndication s:Hypertension, unspecified type Take 1 tablet (20 mg) by mouth Once per day. 30 tablet 1 024 2024 Active clindamycin (Clindagel) 1 % gelIndications:H idradenitis suppurativa Apply topically Once per day. Apply to affected areas for HS. 60 g 2 024 2024 Active benzoyl peroxide (Benzac AC) 10 % external washIndications: Hidradenitis suppurativa Use to wash affected areas nightly. Please be aware that may bleach towels/clothes. 142 g 2 024 Active Dulaglutide (Trulicity) 3 MG/0.5ML solution auto-injectorInd ications:Type 2 diabetes mellitus with hyperglycemia, with long-term current use of insulin ([facility]) Inject 0.5 mL (3 mg) under the skin 1 (one) time per week. 2 mL 3 024 Active polyethylene glycol, PEG, 3350 (MiraLax) 17 GM/SCOOP powderIndication s:Constipation, unspecified constipation type Take 17 g by mouth Once per day. 527 g 1 025 2024 Active docusate sodium (Colace) 100 MG capsuleIndicatio ns:Constipation, unspecified constipation type Take 1 capsule (100 mg) by mouth 2 times daily. 60 capsule 1 025 2024 Active atorvastatin (Lipitor) 20 MG tabletIndication s:Type 2 diabetes mellitus with hyperglycemia, with long-term current use of insulin ([facility]) Take 1 tablet by mouth once daily 90 tablet 025 Active insulin degludec (Tresiba FlexTouch) 100 UNIT/ML injectionIndicat ions:Type 2 diabetes mellitus with hyperglycemia, with long-term current use of insulin ([facility]) Inject subcutaneously 18 units once daily 15 mL 025 Active gabapentin (Neurontin) 300 MG capsule Take 1 capsule (300 mg) by mouth 3 times daily. 90 capsule 3 025 2025 Active acetaminophen (Tylenol 8 Hour) 650 MG ER tablet Take 1 tablet (650 mg) by mouth every 8 (eight) hours if needed for mild pain. Do not crush, chew, or split. 50 tablet 1 025 2025 Active glucose 4 g chewable tabletIndication s:Type 2 diabetes mellitus with hyperglycemia, with long-term current use of insulin ([facility]) Use as directed for low blood sugar 50 tablet 11 025 Active [facility] Glucose 4 g chewable tablet CHEW 4 TABLETS EVERY 15 MINS NEEDED FOR HYPOGLYCEMIA, MY REPEAT ONCE, NOT COVERED 024 2024 Discontinued(M ed list cleanup (will not trigger notification to Pharmacy)) Blood Pressure kitIndications:P rimary hypertension Use as directed 1 kit 2024 Discontinued(M ed list cleanup (will not trigger notification to Pharmacy)) Dulaglutide (Trulicity) 1.5 MG/0.5ML solution auto-injectorInd ications:Type 2 diabetes mellitus with hyperglycemia, without long-term current use of insulin ([facility]) Inject 1.5 mg under the skin 1 (one) time per week. 2 mL 1 2023 Discontinued(D ose adjustment) gabapentin (Neurontin) 100 MG capsuleIndicatio ns:Diabetic polyneuropathy associated with type 2 diabetes mellitus (CMS/HCC) Take 1 capsule (100 mg) by mouth if needed in the morning, at noon, and at bedtime (for breakthrough pain). 90 capsule 1 2024 Discontinued(D ose adjustment) insulin degludec (Tresiba FlexTouch) 100 UNIT/ML injectionIndicat ions:Type 2 diabetes mellitus with hyperglycemia, with long-term current use of insulin ([facility]) Inject subcutaneously 10 units once daily 15 mL 2023 Discontinued(D ose adjustment) doxycycline (Vibra-Tabs) 100 MG tablet Take 1 tablet (100 mg) by mouth 2 times daily for 7 days. Take with a full glass of water and do not lie down for at least 30 minutes after. 14 tablet 2023 Discontinued(T herapy completed) insulin degludec (Tresiba FlexTouch) 100 UNIT/ML injection Inject 16 Units under the skin at bedtime. 2024 Discontinued(R eorder (will not trigger notification to Pharmacy)) acetaminophen (Tylenol) 325 MG tablet PLEASE SEE ATTACHED FOR DETAILED DIRECTIONS 2024 Discontinued oxyCODONE-acetam inophen (Percocet) 5-325 MG tablet TAKE 1 TABLET BY MOUTH EVERY 6 HOURS NEEDED FOR SEVERE PAIN FOR UP TO 3 DAYS. MAX 4 TABS/DAY 2024 Discontinued insulin degludec (Tresiba FlexTouch) 100 UNIT/ML injectionIndicat ions:Type 2 diabetes mellitus with hyperglycemia, with long-term current use of insulin ([facility]) Inject subcutaneously 18 units once daily 025 2024 Discontinued(R eorder (will not trigger notification to Pharmacy)) traMADol (Ultram) 50 MG tabletIndication s:Right foot pain Take 1 tablet (50 mg) by mouth every 8 (eight) hours if needed for severe pain for up to 3 days. 9 tablet 025 2024 Hospital, Clinic, or Other Facility Administered Medication Ordered Dose Route Frequency Start Date End Date Status Insulin Lispro solution 8 UnitsIndications:Hype rglycemia 8 Units IJ Once 02/19/2024 02/19/2024 Ended Insulin Lispro solutionIndications:H yperglycemia IJ Once 02/19/2024 02/19/2024 Discontinued Insulin Lispro solution 4 UnitsIndications:Hype rglycemia 4 Units IJ Once 02/19/2024 02/19/2024 Ended Active Problems Problem Noted Date Diagnosed Date Ocular pain, right eye 03/11/2024 Assessment & Plan (03/11/2024 4:17 PM EST): Pt with c/o persistent right ocular pain x 5 days in the absence of any injury. No fever. He does c/o right sided headache as well. Seen at [facility] ER, intraocular pressure per ER report on right eye was normal. On today's exam pt has photophobia and painful extraocular movements on the right. No redness, mild tenderness to palpation right eye. Etiology ? Ocular migraine vs other etiologies Plan: Stat Orbital and head CT. CBC, ESR. Pt to be seen by our Bottom Saw Operator Dr. Gresham tomorrow at 3:45 PM Follow up with PCP in 1 week Acute intractable headache 03/11/2024 Abscess 02/02/2024 Hypertension 02/02/2024 Assessment & Plan (02/02/2024 10:11 AM EST): Above goal, increased stress and pain Pt has home bp cuff and home rn, no chest symptoms today, however if pt takes meds and bp remains above 140/90, pt will start lisinopril 20 mg tomorrow, LLQ abdominal pain 01/08/2024 Assessment & Plan (01/08/2024 1:52 PM EST): Likely mild constipation versus infectious process. Less likely diverticulitis. - Ordered CBC, CRP, H. Pylori 01/08/24 - Prescribed omeprazole 01/08/24 - ER precautions discussed. - Seek medical attention for worsening symptoms. Nail disease 12/27/2023 Assessment & Plan (12/27/2023 12:34 PM EST): F/u with podiatry Diabetic polyneuropathy asso ciated with type 2 diabetes mellitus 12/27/2023 Bilateral wrist pain 12/27/2023 Assessment & Plan (12/27/2023 12:34 PM EST): Bilateral wrist braces will be prescribed today Cellulitis 11/14/2023 Assessment & Plan (02/02/2024 10:11 AM EST): Borderline candidate as abscess and erythema is temporarily confined to the abscess, however if redness spreads pt will start abx. Apply warm compresses Assessment & Plan (11/14/2023 12:02 PM EDT): Improving Finish antibiotic regimen Seek medical attention if increase pain, erythema, warm sensation Chronic right shoulder pain 11/14/2023 Assessment & Plan (11/14/2023 11:59 AM EDT): XRAY ordered and referral to orthopedics Kidney disease 05/11/2023 Mixed anxiety and depressive disorder 04/10/2023 JASBIR (acute kidney injury) 03/20/2023 Assessment & Plan (03/20/2023 1:26 PM EST): Avoid nephrotoxic medications like NSAIDS I advise we need to get under control his diabetes and HTN I refer patient to nephrology in case referral form PCP is needed Acquired hypothyroidism 03/20/2023 Hospital discharge follow-up 03/20/2023 Assessment & Plan (03/20/2023 1:28 PM EST): Discharge reviewed, referral and medications reviewed today Obstructive sleep apnea syndrome 07/18/2022 Flat foot 07/18/2022 Essential (primary) hypertension 07/18/2022 Assessment & Plan (02/17/2024 5:03 PM EST): - BP above goal, asymptomatic - Encouraged lifestyle interventions and med adherence - Bring home BP readings to CDTM appt Assessment & Plan (12/27/2023 12:33 PM EST): -I added today lisinoprl 10mg daily c/w carvedilol 6.25mg BID, I advise: - Aerobic exercise to reduce BP. Initial goal of 30 min walk 3-5x/week. Increase as tolerated. - low-sodium diet (goal: <2g/day) and heart healthy diet such as DASH to reduce BP and prevent ASCVD. - Home BP monitoring 1-2 x day with goal of <140/90. - Seek immediate medical attention for chest pain, palpitations, SOB, syncope, or sudden changes in mental status. - Do not change or discontinue current prescriptions without first consulting health care provider Assessment & Plan (11/14/2023 11:59 AM EDT): Controlled, I advise: - Aerobic exercise to reduce BP. Initial goal of 30 min walk 3-5x/week. Increase as tolerated. - low-sodium diet (goal: <2g/day) and heart healthy diet such as DASH to reduce BP and prevent ASCVD. - Home BP monitoring 1-2 x day with goal of <140/90. - Seek immediate medical attention for chest pain, palpitations, SOB, syncope, or sudden changes in mental status. - Do not change or discontinue current prescriptions without first consulting health care provider Assessment & Plan (03/20/2023 1:25 PM EST): Maintenance: BMP: ordered today Lipid Panel: ordered today ASCVD Risk: Calculate pending updated labs -c/w amlodipine 10mg daily, I decided to add today carvedilol 6.25mg BID, I prescribed for him a BP cuff I advise: - Aerobic exercise to reduce BP. Initial goal of 30 min walk 3-5x/week. Increase as tolerated. - low-sodium diet (goal: <2g/day) and heart healthy diet such as DASH to reduce BP and prevent ASCVD. - Home BP monitoring 1-2 x day with goal of <140/90. - Seek immediate medical attention for chest pain, palpitations, SOB, syncope, or sudden changes in mental status. - Do not change or discontinue current prescriptions without first consulting health care provider Assessment & Plan (07/18/2022 2:53 PM EDT): Uncontorolled. Will increase lisinopril from 20 mg to 40 mg. Hidradenitis suppurativa of multiple sites 07/18 Assessment & Plan (02/17/2024 5:00 PM EST): - Referral to [facility] Derm team placed 02/17/24 - Start topical BP wash and clindamycin gel - Follow up precautions Paraspinal muscle spasm 07/18/2022 Assessment & Plan (07/18/2022 3:07 PM EDT): Recommend Rice, recommend stretching, if he has further symptoms consider imaging and PT referral. Type 2 diabetes mellitus wit h hyperglycemia, with long-term current use of insulin 01/18/2018 Assessment & Plan (02/19/2024 1:40 PM EST): I was asked by Clinical Pharmacist to see patient due to hyperglycemia. Patient of Dr. Youngblood with uncontrolled DM type II Currently on a regimen of Tresiba 12 units daily and Trulicity 1.5 mg once a week Hgb A1c improving . Down to 10.3 as of yesterday. Lab Results Component Value Date HGBA1C 10.3 (A) 02/18/2024 HGBA1C 11.7 (A) 11/14/2023 HGBA1C 12.9 (A) 03/20/2023 Patients Blood glucose was HIGH Plan: Instructed Rn to give a total of 12 units of rapid insulin Repeat Glucose down to: 417 Continue with Trulicity 1.5mg subcutaneous weekly Case discussed with clinical Pharmacist . Instructed patient to Increase Tresiba to 16 units nightly F/UP with CDTM in 1 week. Vital signs: BP: 162/105 Left arm, large adult cuff Oxygen 99% Pulse : 90 Temp 96.9 Temporal RR: 20 Assessment & Plan (02/17/2024 5:01 PM EST): A1c above goal Lab Results Component Value Date HGBA1C 11.7 (A) 11/14/2023 HGBA1C 12.9 (A) 03/20/2023 HGBA1C 12.8 (A) 07/18/2022 - Continue with Trulicity 1.5mg subcutaneous weekly - Increase to Tresiba 12 units nightly - F/up with CDTM appt on 02/18/24 as scheduled Assessment & Plan (12/27/2023 12:36 PM EST): Diabetes is: not controlled - Lab Results Component Value Date HGBA1C 11.7 (A) 11/14/2023 HGBA1C 12.9 (A) 03/20/2023 HGBA1C 12.8 (A) 07/18/2022 - Lab Results Component Value Date MICROALBUR 1.3 01/09/2020 MICROALBUR 1.3 01/09/2020 CREATININE 1.86 (H) 03/20/2023 -Changes: c/w trulicity 1.5mg weekly, insulin prescription will be the same today I will set up patient with [facility] for medication administration and glucose monitoring - Diabetic eye exam:pending - Diabetic foot exam:patient will see podiatry this month - Continue lifestyle modifications - Continue current medications -continue to follow with CDTM - Follow up: 3 months Assessment & Plan (11/14/2023 12:02 PM EDT): Diabetes is: not controlled - Lab Results Component Value Date HGBA1C 11.7 (A) 11/14/2023 HGBA1C 12.9 (A) 03/20/2023 HGBA1C 12.8 (A) 07/18/2022 - Lab Results Component Value Date MICROALBUR 1.3 01/09/2020 MICROALBUR 1.3 01/09/2020 CREATININE 1.86 (H) 03/20/2023 -Changes: c/w medication prescribed yesterday 11/13/23 (after he was discharged) lantus 80 U at bed time lispro sliding scale, CDTM referral doen today - Diabetic eye exam:pending - Diabetic foot exam:podiatry referral done - Continue lifestyle modifications - Continue current medications Follow up with CDTM and PCP Assessment & Plan (03/20/2023 1:28 PM EST): - Lab Results Component Value Date HGBA1C 12.9 (A) 03/20/2023 HGBA1C 12.8 (A) 07/18/2022 HGBA1C 13.4 (A) 07/12/2022 - Lab Results Component Value Date MICROALBUR 1.3 01/09/2020 MICROALBUR 1.3 01/09/2020 CREATININE 1.86 (H) 03/20/2023 - Diabetic eye exam:pending - Diabetic foot exam:pending -I started again trulicity 0.75mg weekly and glipizide 5mg daily I advise to monitor his glucose and bring log or glucometer to next visit to continue adjusting his medications Assessment & Plan (07/18/2022 3:07 PM EDT): Patient with adverse side effects s/p start of glipizide. Advised to hold glipizide and start on trulicty 0.75 mg/ 0.5 mL. POC a1c was > 12 and glucose 233 mg/dL. Morbid obesity 01/18/2018 Mood disorder 01/18/2018 Gout 01/18/2018 Acute ankle pain 01/18/2018 Encounters Date Type Department Care Team Description 03/12/2024 3:45 PM EST Office Visit [facility] OPTOMETRY [address] [place], [place] [phone] Anisha Gresham OD Arrived 03/12/2024 Travel 03/12/2024 Telephone [facility] MEDICINE [address] [place], [place] [phone] Cecily Pinedo RN 03/11/2024 3:00 PM EST Office Visit [facility] [address] [place], [place] [phone] Christain Muñoz MD Ocular pain, right eye; Acute intractable headache, unspecified headache type 03/11/2024 Telephone [facility] [address] [place], [place] [phone] Kourtney Su, PharmD 03/11/2024 Travel 03/11/2024 Patient Outreach [facility] [place] [address] Matilde Calabrese MD Transition Of Care (Tcm) 03/07/2024 Telephone [facility] [place] [address] Cecily Pinedo, RN Care Coordination 03/07/[address] [address] Cecily Pinedo, ROSA Care Management (C3CM- f/u call) 03/06/2024 Patient Outreach [address] [address] Matilde Calabrese MD Care Coordination (SDOH/appt reminders) 03/03/2024 10:00 AM EST Office Visit [facility] [address] Charity Luna DO Right foot pain (Primary Dx) 02/29/[address] [address] Matilde Calabrese MD Call Back Request 02/28/[address] [address] Matilde Calabrese MD 02/27/2024 Travel 02/26/2024 10:30 AM EST Telemedicine [facility] [place] [address] Kourtney Su, PharmD Type 2 diabetes mellitus with hyperglycemia, with long-term current use of insulin ([facility]) (Primary Dx) 02/26/2024 Orders Only [facility] [address] [place], [place] [phone] Matilde Calabrese MD Constipation, unspecified constipation type (Primary Dx) 02/26/2024 Telephone [facility] [address] [place] [address] Chante Davis, ROSA 02/25/2024 Telephone [facility] [address] [place] [phone] Cecily Pinedo, ROSA 02/25/[address] [address] Cecily Pinedo, ROSA Care Management (C3CM- f/u call) 02/22/[address] [address] Kourtney Su PharmD 02/19/[address] [address] Ileana Jones RN Hyperglycemia 02/19/2024 Travel 02/18/[address] [address] Matilde Calabrese MD CRITICAL RESULT 02/18/2024 Orders Only GENERIC EXTERNAL DATA DEPARTMENT Provider, Generic External Data 02/18/2024 Patient Outreach [address] [address] Matilde Calabrese MD Care Coordination (Appt reminders) 02/18/2024 Travel 02/15/2024 10:00 AM EST Office Visit [facility] [address] [place], [place] [phone] Silvia George FNP Carpal tunnel syndrome, unspecified laterality (Primary Dx); Type 2 diabetes mellitus with hyperglycemia, with long-term current use of insulin ([facility]); Hidradenitis suppurativa; Essential (primary) hypertension 02/15/2024 Travel 02/14/2024 Patient Outreach [address] [address] Matilde Calabrese MD Care Coordination (APPT REMINDER) 02/11/[address] [phone] Cecily Pinedo, RN Care Management (C3CM- f/u call) 02/07/2024 Orders Only [facility] [address] [place] [phone] Ari Guidry MD 02/07/[address] [phone] Linn Connelly RN 02/06/[address] [address] Matilde Calabrese MD No Show 02/06/[address] [address] Matilde Calabrese MD 02/05/2024 Patient Outreach [address] [address] Matilde Calabrese MD 02/05/2024 Patient Outreach [address] [address] Matilde Calabrese MD Care Coordination (Appt reminder) 02/04/[address] [address] Ariana Briggs MA Chart Prep 02/02/2024 9:40 AM EST Office Visit [facility] [address] [place] [address] Wendy Wright NP Abscess (Primary Dx); Cellulitis of neck; Hypertension, unspecified type 02/01/2024 Patient Outreach [address] [address] Matilde Calabrese MD Transition Of Care (Tcm) 01/31/[address] [address] Ariana Briggs MA X-RAY RESULTS 01/31/2024 Orders Only [facility] [address] [place] [address] Ari Guidry MD 01/31/[address] [address] Cynthia Zepeda MA Results 01/31/2024 Patient Outreach [address] [address] Matilde Calabrese MD Care Coordination (PT1) 01/28/2024 Patient Outreach [address] [address] Matilde Calabrese MD Care Coordination (PT1) 01/28/2024 Patient Outreach [address] [address] Matilde Calabrese MD 01/25/[address] [address] Cecily Pinedo RN Care Management (C3CM- f/u call) 01/25/2024 Patient Outreach [address] [address] Matilde Calabrese MD Care Coordination (SDOH) 01/16/2024 Patient Outreach [address] [address] Matilde Calabrese MD Care Coordination (SDOH) 01/11/[address] [address] Cecily Pinedo RN Care Coordination 01/08/2024 2:40 PM EST Office Visit [facility] [address] [place] [phone] Erin Bueno MD LLQ abdominal pain (Primary Dx) 01/08/2024 Telephone [facility] [address] [address] Erin Bueno MD 01/08/2024 Orders Only [address] [address] Matilde Calabrese MD Essential (primary) hypertension (Primary Dx); Decreased hearing of both ears 01/08/[address] [address] Cecily Pinedo RN Care Management (C3CM- initial assessment/ enrollment) 01/07/2024 Patient Outreach [address] [address] Matilde Calabrese MD Care Coordination (CM/CHW appt reminder) 01/07/[address] [address] oKurtney Su, PharmD 01/07/2024 Travel 12/31/[address] [address] Eli Ramsay, ROSA [facility]; FYI 12/31/2023 Patient Outreach [address] [address] Matilde Calabrese MD Care Coordination (CM/CHW appt ) 12/28/[address] [address] Ariana Briggs MA Durable Medical Equipment (/) 12/27/2023 9:30 AM EST Office Visit [address] [address] Matilde Calabrese MD Essential (primary) hypertension (Primary Dx); Type 2 diabetes mellitus with hyperglycemia, with long-term current use of insulin (CMS/HCC); Type 2 diabetes mellitus with hyperglycemia, without long-term current use of insulin (CMS/HCC); Nail disease; Diabetic polyneuropathy associated with type 2 diabetes mellitus (CMS/HCC); Bilateral wrist pain; Encounter for immunization 12/27/2023 Telephone [facility] [address] [place] [address] Matilde Calabrese MD Letter for School/Work 12/27/2023 Travel 12/25/2023 Patient Outreach [address] [phone] Matilde Calabrese MD Transition Of Care (Tcm) 12/24/[address] [phone] Kourtney Su, PharmD ED Status Check 12/20/2023 Patient Outreach [address] [phone] Matilde Calabrese MD Care Coordination (CM/CHW outreach) 12/18/[address] [address] Matilde Calabrese MD 12/18/2023 Patient Outreach [facility] [address] [place] [phone] Matilde Calabrese MD Pre-visit Planning (SDOH screening completed on 04/27/2023) 12/17/[address] [address] Matilde Calabrese MD Care Management 12/12/2023 10:00 AM EDT Clinical Support [address] [address] Marti Clinton, ROSA Type 2 diabetes mellitus with hyperglycemia, with long-term current use of insulin ([facility]) 12/12/[address] [address] Matilde Calabrese MD 12/12/[address] [address] Dinora Vences RN Care Management (C3CM initial assessment-reschedule ) 12/11/2023 Patient Outreach [address] [phone] Matilde Calabrese MD Care Coordination (CM/CHW appt reminder) from Last 3 Months Immunizations Name Administration Dates Next Due Hep B, adult 02/18/2024,12/05/2023 Influenza Whole 02/05/2012 Influenza injectable quadriv alent IIV4 with preservative 12/16/2018 Influenza injectable quadrivalent preservative f ree 03/04/2023 Influenza, IIV3, injectable 12/16/2018, 7 Influenza, seasonal, injectable, preservative fr ee 02/27/2024 Pneumococcal Conjugate PCV 20 12/27/2023 Pneumococcal Polysaccharide PPSV23 08/19/2018 Tdap 08/19/2018,02/05/2012 Social History Tobacco Use Types Packs/Day Years Used Date Smoking Tobacco: Never Passive Smoke Exposure: Never Smokeless Tobacco: Never Tobacco Cessation:Counseling Given: Not Answered Alcohol Use Standard Drinks/Week Comments Never 0 (1 standard drink = 0.6 oz pur e alcohol) Alcohol Answer Date Recorded Frequency of Alcohol Consumption Not on file 12/27/2023 Average Number of Drinks Not on file 11/07/2 024 Frequency of Binge Drinking Not on [...] Orientation Straight 12/19/2021 10 :34 AM EDT Last Filed Vital Signs Vital Sign Reading Time Taken Comments Blood Pressure 130/87 03/11/2024 3:22 PM EST Pulse 84 03/11/2024 3:22 PM EST Temperature 37.2 ??C (98.9 ??F) 03/11/2024 3:22 PM ES T Respiratory Rate 18 03/11/2024 3:22 PM EST Oxygen Saturation 98% 03/11/2024 3:22 PM EST Inhaled Oxygen Concentration - - Weight 129 kg (284 lb 9.6 oz) 03/11/2024 3:22 PM EST Height 172.7 cm (5' 8 ) 02/15/2024 9:54 AM EST Body Mass Index 43.27 02/15/2024 9:54 AM EST Plan of Treatment Upcoming Encounters Date Type Department Care Team (Late st Contact Info) Description 03/18/2024 9:30 AM EST Medication Management [facility] [address] [place] [address] Kourtney Su, PharmD [address] [place] [address] 05/06/2024 10:00 AM EDT Office Visit [facility] [address] [place], [place] [phone] Matilde Calabrese MD [address] [place], [place] [phone] Health Maintenance Due Date Last Done Comments HIV Screening 1986 Eye Exam 1996 Family Planning (PISQ) 2001 COVID-19 Vaccine ( season) 2023 04/09/2020, 03/12/2020 Diabetes: Hemoglobin A1C 05/18/2024 024, 11/14/2023, 03/20/2023, Additional history exists Hepatitis B Vaccines (3 of 3 - 19+ 3-dose series) 06/04/2024 02/18/2024, 12/05/2023 Depression Monitoring (PHQ-9) 06/25/2024 12/27/2023, 12/27/2023 Alcohol/Substance Use Screening 12/26/2024 12/27/2023 Depression Screening 12/26/2024 12/27/2023, 12/27/19 24 SDOH Screening 01/15/2025 01/16/2024 Diabetes: Urine Protein Screening 02/17/2025 02/18/2024, 07/25/2022, 01/09/2020 Lipid Panel 02/17/2025 02/18/2024, 01/09/2020 Diabetes: Foot Exam 03/03/2025 03/03/2024 Tobacco Screening 03/12/2025 03/12/2024 DTaP/Tdap/Td Vaccines (3 - Td or Tdap) 08/19/2028 08/19/2018, 02/05/2012 Zoster Vaccines (1 of 2) 2036 RSV Patients and Patients Aged 60 years or older (1 - 1-dose 75+ series) 2061 Pneumococcal Vaccine: Pediatrics (0 to 5 Years) [...] patient's age to complete this topic Meningococcal Vaccine Aged Out No junior jeffrey eligible based on patient's age to complete this topic RSV under 20 months Aged Out No longe r eligible based on patient's age to complete this topic Rotavirus Vaccines Aged Out No longer eligible based on patient's age to complete this topic Procedures Procedure Name Priority Date/Time Associated Diagnosis Comments BASIC METABOLIC PANEL Routine 03/12/2024 2:58 PM EST Ocular pain, right eye Acute intractable headache, unspecified headache type SED RATE BY MODIFIED WESTERGREN Routine 03/12/2024 2:58 PM EST Ocular pain, right eye CBC WITH AUTO DIFFERENTIAL Routine 03/12/2024 2:58 PM EST Ocular pain, right eye XR FOOT 3+ VIEWS RIGHT STAT 10:49 AM EST Right foot pain POCT GLUCOSE Routine 02/19/2024 12:57 PM EST Hyperglycemia POCT GLUCOSE Routine 02/19/2024 12:17 PM EST Hyperglycemia POCT URINALYSIS DIPSTICK Routine 02/19/2024 11:22 AM EST Hyperglycemia POCT GLUCOSE Routine 02/19/2024 10:40 AM EST Type 2 diabetes mellitus with hyperglycemia, with long-term current use of insulin (CMS/HCC) ALBUMIN, RANDOM URINE W/CREATININE Routine 02/18/2024 11:22 AM EST PHOSPHOLIPASE A2 RECEPTOR (PLA2R) AB PANEL Routine 02/18/2024 9:45 AM EST PROTEINASE-3 ANTIBODY Routine 02/18/2024 9:45 AM EST MYELOPEROXIDASE ANTIBODY (MPO) Routine 02/18/2024 9:45 AM EST GLOMERULAR BASEMENT MEMBRANE ANTIBODY (IGG) Routine 02/18/2024 9:45 AM EST DNA (DS) ANTIBODY Routine 02/18/2024 9:4 5 AM EST IMMUNOFIXATION, SERUM Routine 02/18/2024 9:45 AM EST COMPLEMENT COMPONENT C4C Routine 02/18/2024 9:45 AM EST COMPLEMENT COMPONENT C3C Routine 02/18/2024 9:45 AM EST HEPATITIS B SURFACE ANTIGEN, EIA Routine 02/18/2024 9:45 AM EST HEPATITIS C AB W/REFL TO HCV RNA, QN, PCR Routine 02/18/2024 9:45 AM EST HEPATITIS B CORE AB TOTAL Routine 02/18/2024 9:45 AM EST LIPID PANEL, STANDARD Routine 02/18/2024 9:45 AM EST BASIC METABOLIC PANEL Routine 02/18/2024 9:45 AM EST HEPATIC FUNCTION PANEL Routine 9:45 AM EST CALCIUM Routine 02/18/2024 9:45 AM EST UREA NITROGEN (BUN) Routine 02/18/2024 9 :45 AM EST POCT GLYCATED HEMOGLOBIN, TOTAL Routine 02/18/2024 9:05 AM EST Type 2 diabetes mellitus with hyperglycemia, with long-term current use of insulin (CMS/HCC) CT ABDOMEN PELVIS WO CONTRAST Routine 02/06/2024 12:[address] SOFT TISSUE NECK W CONTRAST Routine 01/31/2024 9:58 AM EST C-REACTIVE PROTEIN Routine 01/08/2024 2: 03 PM EST LLQ abdominal pain CBC WITH AUTO DIFFERENTIAL Routine 01/08/2024 2:03 PM EST LLQ abdominal pain POCT GLUCOSE Routine 12/27/2023 9:43 AM EST Type 2 diabetes mellitus with hyperglycemia, with long-term current use of insulin (CMS/HCC) from Last 3 Months Results * (ABNORMAL) CBC auto differential (03/12/2024 2:58 PM EST) Only the most recent of2 resultswithin the time period is included. White Blood Count 9.5 4.8 - 10.8 X10*3/uL [facility] Red Blood Count 4.66 4.60 - 5.80 X10*6/uL [facility] Hemoglobin 13.9(L) 14.0 - 18.0 g/dl [facility] Hematocrit 40.0(L) 42.0 - 52.0 % [facility] Mean Corpuscular Volume 85.8 80.0 - 98.0 fL [facility] Mean Corpuscular Hemoglobin 29.8 27.0 - 33.0 pg [facility] Mean Corpuscular HGB Conc 34.8 31.0 - 36.0 g/dl [facility] Red Cell Distribution Width 12.3 11.0 - 16.0 % [facility] Platelet Count 326 160 - 400 X10*3/uL [facility] Mean Platelet Volume 10.4 9.4 - 12.4 fL [facility] Neutrophils Percent Auto 58.0 45 - 73 % [facility] Imm Gran Pct Auto 0.3 0.0 - 0.4 % [facility] Lymphocytes Percent Auto 30.5 20 - 40 % [facility] Monocytes Percent Auto 6.6 2 - 11 % [facility] Eosinophils Percent Auto 3.4 0 - 4 % [facility] Basophils Percent Auto 1.2 0 - 2 % [facility] NRBC Pct Auto 0.0 0.0 - 0.2 /100WBC [facility] Neutrophils Absolute Auto 5.5 2.0 - 8.3 x10*3/uL [facility] Imm Gran Abs Auto 0.03 0.00 - 0.03 X10*3/uL [facility] Lymphocytes Absolute Auto 2.9 1.2 - 4.9 X10*3/uL [facility] Monocytes Absolute Auto 0.6 0.1 - 1.2 X10*3/uL [facility] Eosinophils Absolute Auto 0.3 0.0 - 0.4 X10*3/uL [facility] Basophils Absolute Auto 0.1 0.0 - 0.2 X10*3/uL [facility] NRBC Abs Auto 0.000 0.0 - 0.012 X10*3/uL [facility] Blood Venous blood specimen / Unknown 03/12/2024 2:58 PM EST 03/12/2024 4:20 PM EST us Christian Fuchs MD LAB BLOOD ORDERABLES Final Result [facility] [address] [place] [phone] * (ABNORMAL) Sed Rate by Modified Anand (03/12/2024 2:58 PM EST) Erythrocyte Sedimentation Rate 34(H) 0 - 15 MM/HR [facility] Comment:Patients with polycy themia and many hemoglobin abnormalitiesmay have depressed sed rates whereas patients with anemiamay have elevated sed rates. Blood Venous blood specimen / Unknown 03/12/2024 2:58 PM EST 03/12/2024 4:20 PM EST Christian Fuchs MD LAB BLOOD ORDERABLES Final Result Performing Organization Address [facility] Co de Phone Number [facility] [address] [place] [phone] * (ABNORMAL) Basic Metabolic Panel (03/12/2024 2:58 PM EST) Only the most recent of2 resultswithin the time period is included. Pathologist [facility] [place] Sodium 135 135 - 145 mmol/L [facility] Potassium 4.3 3.3 - 5.1 mmol/L [facility] Chloride 105 96 - 108 mmol/L [facility] Carbon Dioxide 25 22 - 29 mmol/L [facility] Anion Gap 9(L) 12 - 20 [facility] Urea Nitrogen (BUN) 13 9 - 16 mg/dL [facility] Creatinine, Serum 0.93 0.5 - 1.4 mg/dL [facility] Estimated Glomerular Filt Rate >60 [facility] Comment:Chronic Kidney Disea se: Estimated GFR < 60 mL/min/1.22w8Tscenk Kidney Disease: Estimated GFR < 15 mL/min/1.73m2 Glucose 227(H) 60 - 115 mg/dL [facility] Calcium 9.6 8.4 - 10.2 mg/dL [facility] Blood Venous blood specimen / Unknown 03/12/2024 2:58 PM EST 03/12/2024 4:20 PM EST Crhistian Fuchs MD LAB BLOOD ORDERABLES Final Result Performing Organization Address City/[facility]/ZIP Co de Phone Number [facility] [address] [place] [phone] * XR Foot 3+ Views Right (03/03/2024 10:49 AM EST) Anatomical Region Laterality Modality Lower Extremities, Foot Right Radiogra phic Imaging 03/03/2024 10:4 9 AM EST Narrative 03/03/2024 11:09 AM EST ?[facility] ?[address] ?[place] [address] ?XRay Report ? Signed ? Patient: Anderson,Raji ?MR#: [id number] ? : 1985 ?Acct:[id number] ? Age/Sex: 38 / M ?ADM Date: 03/03/24 ? Loc: HO.HHCX ? Attending Dr: Charity Luna DO ? Ordering Physician: Charity Luna DO ?? Date of Service: 03/03/24 ?? Procedure(s): XR foot RT min 3V ?? Accession Number(s): [id number] ? cc: Charity Luna DO ? EXAMINATION: [...] DD/ 1049 ? TD/TT: 03/03/24 1058 ? Mcat Instructor: ? Procedure Note Salima Villanueva - 03/03/[address] [address] XRay Report Signed Patient: Cedrick Anderson#: [id number] : 1985Acct:[id number] Age/Sex: 38 / MADM Date: 03/03/24 Loc: HO.HHCX Attending Dr: Charity Luna DO Ordering Physician: Charity Luna DO Date of Service: 03/03/24 Procedure(s): XR foot RT min 3V Accession Number(s): [id number] cc: Charity Luna DO EXAMINATION: XR FOOT [...] 03/03/24 1106 DD/ 1049 TD/TT: 03/03/24 1058 Mcat Instructor: Charity Luna DO IMG XR PROCEDURES Edited Res ult - Final * (ABNORMAL) POCT Glucose (02/19/2024 12:57 PM EST) Only the most recent of4 resultswithin the time period is included. Pathologist Rohith Glucose Blood, POC 417(A) 60 - 200 mg/dL QC Media Lot # [id number] Lot# Expiration Date [id number] Blood Capillary blood specimen / Unknown 02/19/2024 12:57 PM EST Christian Fuchs MD POINT OF CARE TEST EN TER/EDIT ORDERABLES Final Result * POCT urinalysis dipstick manually resulted (02/19/2024 11:22 AM EST) Color, UA Yellow Clarity, UA Clear Glucose, UA 3+ 500+++ Bilirubin, UA Negative Ketones, UA Negative Spec Grav, UA 1.020 Blood, UA Negative Negative, None Detected pH, UA 6.0 Protein, UA Negative Urobilinogen, UA 0.2 Leukocytes, UA Negative Negative, Rare, Trace Nitrite, UA Negative Negative, None Detected QC Media Lot # [id number] Lot# Expiration Date 073 Urine 02/19/2024 11:2 2 AM EST us Christian Fuchs MD POINT OF CARE TEST EN TER/EDIT ORDERABLES Final Result * Albumin, Random Urine W/Creatinine (02/18/2024 11:22 AM EST) Pathologist [facility] [place] Creatinine, Urine 209.68 mg/dL [facility] Microalbumin Urine 52.0 mg/L [facility] Microalbum Creatinine Ratio Ur 24.7 <30 ug/mg cr [facility] Comment:Albumin/Creatinine R atio Reference Ranges: Normal: < 30 ug/mg creatinine Microalbuminuria: 30 - 300 ug/mg creatinineClinical Albuminuria: > 300 ug/mg creatinine 02/18/2024 11:2 2 AM EST 02/18/2024 1:18 PM EST us Matilde Hudson MD LAB URINE ORDERABLES Final Result [facility] [address] [place] [phone] * Proteinase-3 Antibody (02/18/2024 9:45 AM EST) Proteinase-3 Antibody <1.0 AI [facility] Comment:Value Interpretation ----- <1.0 No Antibody Detected > or = 1.0 Antibody DetectedAutoantibodies to proteinase-3 (DC-3) are accepted ascharacteristic for granulomatosis with polyangiitis(GPA, Brianna's), and are detectable in 95% of thehistologically proven cases. The cytoplasmic IFApattern, (c-ANCA), is based largely on autoantibody toPR-3 which serves as the primary antigen.These autoantibodies are present in active disease.THIS TEST WAS PERFORMED AT:[employer] [address] [id number] OWEN MD 02/18/2024 9:45 AM EST 02/18/2024 11:11 AM EST Generic External Data Provider LAB BLOOD ORDERAB LES Final Result Performing Organization Address [facility] Co de Phone Number [facility] [address] [place] [phone] * Myeloperoxidase Antibody (MPO) (02/18/2024 9:45 AM EST) Myeloperoxidase Antibody <1.0 [facility] Comment:Value Interpretation ----- <1.0 No Antibody Detected > or = 1.0 Antibody DetectedAutoantibodies to myeloperoxidase (MPO) are commonlyassociated with the following small-vesselvasculitides: microscopic polyangiitis,polyarteritis nodosa, Churg-Rafi syndrome,necrotizing and crescentic glomerulonephritis andoccasionally granulomatosis with polyangiitis(GPA, Brianna's). The perinuclear IFA pattern,(p-ANCA) is based largely on autoantibody tomyeloperoxidase which serves as the primary antigen.These autoantibodies are present in active disease.THIS TEST WAS PERFORMED AT:[employer] [address] [id number] OWEN MD 02/18/2024 9:45 AM EST 02/18/2024 11:11 AM EST us Generic External Data Provider LAB BLOOD ORDERAB LES Final Result Performing Organization Address [facility]/ZIP Co de Phone Number [facility] [address] [place] [phone] * Phospholipase A2 Receptor (PLA2R) Antibody Panel (02/18/2024 9:45 AM EST) Phospholipase A2 Receptor (PLA2R) Ab, PRACHI <4 RU/mL [facility] Comment:Reference Range: <14 : NEGATIVE 14-19: BORDERLINE >19: POSITIVE Phospholipase A2 Receptor (PLA2R) Ab, IFA NEGATIVE NEGATIVE [facility] Comment:THIS TEST WAS PERFOR MED AT:[employer] [id number] [place] [address]ELGWIGRECIA THORPE MD,PHD,LINDA 02/18/2024 9:45 AM EST 02/18/2024 11:11 AM EST Generic External Data Provider LAB BLOOD ORDERAB LES Final Result Performing Organization Address [facility] de Phone Number [facility] [address] [place] [phone] * Hepatitis C Antibody with Reflex to HCV, RNA, Quantitative, Real-Time PCR (02/18/2024 9:45 AM EST) Hepatitis C Antibody Nonreactive Nonreactive [facility] Comment:Antibodies to HCV no t detected; does not exclude early acuteHCV infection. 02/18/2024 9:45 AM EST 02/18/2024 11:12 AM EST Generic External Data Provider LAB BLOOD ORDERAB LES Final Result Performing Organization Address [facility] Co de Phone Number [facility] [address] [place] [phone] * Glomerular Basement Membrane Antibody (IgG) (02/18/2024 9:45 AM EST) Glomerular Basement Memebrane Antibody (IgG) <1.0 AI [facility] Comment:Value Interpretation ----- <1.0 No Antibody Detected > or = 1.0 Antibody DetectedTHIS TEST WAS PERFORMED AT:[employer] [address] [phone] OWEN MD 02/18/2024 9:45 AM EST 02/18/2024 11:11 AM EST us Generic External Data Provider LAB BLOOD ORDERAB LES Final Result Performing Organization Address [facility] Co de Phone Number [facility] [address] [place] [phone] * DNA (ds) Antibody (02/18/2024 9:45 AM EST) Pathologist [facility] [place] Anti DNA DS Antibody 1 IU/mL [facility] Comment:IU/mL Interpretation < or = 4 Negative 5-9 Indeterminate > or = 10 PositiveTHIS TEST WAS PERFORMED AT:[employer] [address] [phone] OWEN MD 02/18/2024 9:45 AM EST 02/18/2024 11:11 AM EST Generic External Data Provider LAB BLOOD ORDERAB LES Final Result Performing Organization Address [facility] de Phone Number [facility] [address] [place] [phone] * Hepatitis B surface antigen, EIA (02/18/2024 9:45 AM EST) Pathologist [facility] [place] Hepatitis B Surface Ag Negative Negative [facility] 02/18/2024 9:45 AM EST 02/18/2024 11:12 AM EST Generic External Data Provider LAB BLOOD ORDERAB LES Final Result Performing Organization Address [facility] de Phone Number [facility] [address] [place] [phone] * Hepatitis B Core Antibody, Total (02/18/2024 9:45 AM EST) Hepatitis B Core Antibody Nonreactive Nonreactive [facility] 02/18/2024 9:45 AM EST 02/18/2024 11:12 AM EST us Generic External Data Provider LAB BLOOD ORDERAB LES Final Result Performing Organization Address [facility] Co de Phone Number [facility] [address] [place] [phone] * (ABNORMAL) Immunofixation, Serum (02/18/2024 9:45 AM EST) IMMUNOGLOBULIN G 1358 600 - 1640 mg/dL [facility] IMMUNOGLOBULIN A 518(A) 47 - 310 mg/dL [facility] Immunoglobulin M 57 50 - 300 mg/dL [facility] Comment:THIS TEST WAS PERFOR MED AT:[employer] [address] [phone] OWEN MD Immunofixation Result SEE NOTE [facility] Comment:Normal pattern. No m onoclonal proteins detected. 02/18/2024 9:45 AM EST 02/18/2024 11:11 AM EST us Generic External Data Provider LAB BLOOD ORDERAB LES Final Result Performing Organization Address [facility] Co de Phone Number [facility] [address] [place] [phone] * Complement Component C3c (02/18/2024 9:45 AM EST) Complement C3 166 82 - 185 mg/dL [facility] Comment:THIS TEST WAS PERFOR MED AT:[employer] [id number] [place] [address]MVZUXTIERRA OWEN MD 02/18/2024 9:45 AM EST 02/18/2024 11:11 AM EST us Generic External Data Provider LAB BLOOD ORDERAB LES Final Result Performing Organization Address City/[facility]/ZIP Co de Phone Number [facility] [address] [place] [phone] * Complement Component C4c (02/18/2024 9:45 AM EST) Complement C4 20 15 - 53 mg/dL [facility] Comment:THIS TEST WAS PERFOR MED AT:[employer] [place] [phone] OWEN MD 02/18/2024 9:45 AM EST 02/18/2024 11:11 AM EST us Generic External Data Provider LAB BLOOD ORDERAB LES Final Result Performing Organization Address [facility] Co co Phone Number [facility] [address] [place] [phone] * BUN (Blood Urea Nitrogen) (02/18/2024 9:45 AM EST) Urea Nitrogen (BUN) 14 9 - 16 mg/dL [facility] 02/18/2024 9:45 AM EST 02/18/2024 11:12 AM EST us Generic External Data Provider LAB BLOOD ORDERAB LES Final Result Performing Organization Address [facility] Co de Phone Number [facility] [address] [place] [phone] * Calcium (02/18/2024 9:45 AM EST) Calcium 9.8 8.4 - 10.2 mg/dL [facility] 02/18/2024 9:45 AM EST 02/18/2024 11:12 AM EST us Generic External Data Provider LAB BLOOD ORDERAB LES Final Result Performing Organization Address [facility] Co de Phone Number [facility] [address] [place] [phone] * (ABNORMAL) Hepatic Function Panel (02/18/2024 9:45 AM EST) Bilirubin, Total 0.4 0.0 - 1.0 mg/dL [facility] Bilirubin, Direct 0.1 0.0 - 0.5 mg/dL [facility] Aspartate Amino Transferase 25 5 - 37 U/L [facility] Alanine Aminotransferase 39 0 - 40 U/L [facility] Total Protein 8.7(H) 6.5 - 8.0 g/dL [facility] Albumin Level 4.8 3.5 - 5.0 g/dL [facility] Alkaline Phosphatase 113 39 - 117 U/L [facility] 02/18/2024 9:45 AM EST 02/18/2024 11:12 AM EST Matilde Hudson MD LAB BLOOD ORDERABLES Final Result Performing Organization Address City/State/[facility] Co de Phone Number [facility] [address] [place] [phone] * (ABNORMAL) Lipid Panel, Standard (02/18/2024 9:45 AM EST) Triglycerides 319(H) <150 mg/dL [facility] Comment:Slight Lipemia.Aury able Triglyceride: less than 150 mg/dLBorderline High Triglyceride 150-199 mg/dLHigh Triglyceride: 200-499 mg/dLVery High Triglyceride: greater than or equal to 5OO mg/dL Cholesterol 176 <200 mg/dL [facility] Comment:Desirable Cholestero l: less than 200 mg/dLBorderline High Cholesterol: 200-239 mg/dLHigh Cholesterol: greater than 239 mg/dL LDL Cholesterol Calculated 75 <100 mg/dL [facility] Comment:Desirable LDL: less than 100 mg/dLNear Optimal/Above Optimal LDL: 110- 129 mg/dLBorderline High LDL: 130-159 mg/dLHigh LDL: 160-189 mg/dLVery High LDL: greater than or equal to 190 mg/dL HDL Cholesterol 38(L) >40 mg/dL [facility] Comment:Desirable HDL: great er than 40 mg/dL Note: This HDL assay may give artificially low results in patients with liver disease. 02/18/2024 9:45 AM EST 02/18/2024 11:12 AM EST Result [facility] Matilde Hudson MD LAB BLOOD ORDERABLES Final Result [facility] [address] [place] [phone] * (ABNORMAL) POCT A1C (02/18/2024 9:05 AM EST) Hemoglobin A1C 10.3(A) 4.0 - 6.0 % QC Media Lot # [id number] Lot# Expiration Date Blood 02/18/2024 9:05 AM EST Result [facility] Matilde Hudson MD POINT OF CARE TEST EN TER/EDIT ORDERABLES Final Result * CT Abdomen Pelvis w/o Contrast (02/06/2024 12:43 PM EST) Anatomical Region Laterality Modality Body, Pelvis, Abdomen Computed T omography Result [facility] Historical Provider IMG CT PROCEDURES Final R esult * CT SOFT TISSUE NECK W CONTRAST (01/31/2024 9:58 AM EST) Anatomical Region Laterality Modality Computed Tomogra phy Result [facility] Historical Provider IMG CT PROCEDURES Final R esult * C-reactive Protein (01/08/2024 2:03 PM EST) C Reactive Protein 0.18 < or = 0.50 mg/dL [facility] Blood Venous blood specimen / Unknown 01/08/2024 2:03 PM EST 01/08/2024 4:07 PM EST Result [facility] rEin Bueno MD LAB BLOOD ORDERABLES Final Result [facility] [address] [place] [address] [phone] from Last 3 Months Insurance [facility] C3 Care Teams Hay Stacker Relationship Specialty Start Date End Date Matilde Calabrese MD [address] [place] [address] PCP - General Internal Medicine 11/23/23 Kourtney Su, EmmaD [address] [place] [address] Pharmacist Internal Medicine 12/05/23 Cecily Pinedo RN [address] [place] [address] Lead Recreation AssistantLead Tinner 01/08/24 [facility] 01/09/24
--- OUTSIDE RECORDS SUMMARY | 2024-03-12 17:24 | XMS_ITS | Encounter Summary ---
Author Organization [employer] Address [address] [facility] [address] 7t [place] [address] Care Team Providers Care Technology Professional Name Role Phone Matilde Calabrese MD Primary Care Provide r Kourtney Su PharmD Unavailable [phone] Cecily Pinedo RN Unavailable [phone] Reason for Visit * Reason Onset Date Comments Care Management 03/07/2024 C3CM- f/u call Encounter Details Date Type Department Care Team ([facility] st Contact Info) Description 03/07/2024 Telephone [facility] [address] [place] [address] Cecily Pinedo, RN [address] [place] [address] Care Management (C3CM- f/u call) Social History Tobacco Use Types Packs/Day Years [...] the past 12 months, has t he [employer], gas, oil or water company threatened to [...] encounter Miscellaneous Notes * Telephone Encounter - Cecily Pinedo RN - 03/07/2024 8:40 AM EST Late entry 03/06/24: CM Cecily Pinedo RN and CHW Yue Eubanks placed outbound call to patient. Patient's name, and address confirmed. Patient states is doing well with no recent illnesses or emergency room visits.Patient confirms attending CDTM visits with [facility] pharmacy on 02/26/24 and 02/27/24. Per patient, visits went well. He expresses some difficulties with obtaining the omeprazole from the pharmacy but statesissue has since been resolved. Per patient, sugars have been well controlled. Reports most recent scan at 124mg/dL. He states his diastolic BPs have been elevated. Reports highest reading at 99. Per patient, taking all medications as directed. He denies any side effects or concerns. Patient does report symptoms of carpal tunnel which he has discussed with provider at [facility] during visit on 02/15/24.He reports use of wrist splint with no effect. CM noted that office visit note recommended he f/u if symptoms persist, consider referral to Ortho/ EMG. CM will assist with scheduling f/u appt. CM reminded patient of his scheduled visit with General Surgery on 03/07/24 at 9:30am and visit with Podiatry on 03/11/24 at 9:00am. Patient is aware and denies any barriers to attending. No further questions or concerns. CM reinforced direct contact information or CHW for any additional questions or concerns. Education provided on Walk-In Urgent Care located in [facility] of [facility]. Patient provided with after-hours line for [facility], , which offer night time triage service and option to transfer to healthcare network consultant provider if needed. Patient verbalizes understanding, and able to repeat back to policy writer sales. A follow up call will be placed within 10 days, patientagrees with plan. documented in this encounter Plan of Treatment Upcoming Encounters Date Type Department Care Team (Late st Contact Info) Description 03/18/2024 9:30 AM EST Medication Management [facility] [address] [place] [address] [phone] Kourtney Su, PharmD [address] [place] [address] [phone] 05/06/2024 10:00 AM EDT Office Visit [facility] [address] [place] [phone] Matilde Calabrese MD [address] [place] [address] [phone] documented as of this encounter Visit Diagnoses Not on filedocumented in this encounter Additional Health Concerns Assessment Noted Time PHQ-9 Depression Total Score: 18 024 9:55 AM EST documented as of this encounter Care Teams Technology Professional Relationship Specialty Start Date End Date Matilde Calabrese MD [address] [place] [address] [phone] PCP - General Internal Medicine 11/23/23 Kourtney Su, Samara [address] [place] [address] Pharmacist Internal Medicine 12/05/23 Cecily Pinedo, ROSA [address] [place] [address] Pairing Machine OperatorTraffic Circuit Engineer 01/08/24 [facility] 01/09/24 documented as of this encounter
--- OUTSIDE RECORDS SUMMARY | 2024-03-12 17:24 | XMS_ITS | Encounter Summary ---
Author Organization [employer] Address 75 [facility] 7t [place] [address] Care Team Providers Care Heat Regulator Name Role Phone Matilde Calabrese MD Primary Care Provide r Kourtney uS PharmD Unavailable [phone] Cecily Pinedo RN Unavailable [phone] Reason for Visit * Reason Comments Care Coordination SDOH/appt reminders Encounter Details Date Type Department Care Team (Latest Contact Info) Description 03/06/2024 Patient Outreach [facility] [address] [place] [address] Matilde Calabrese MD [address] [place] [address] Care Coordination (SDOH/appt reminders) Social History Tobacco Use Types Packs/Day Years [...] as of this encounter Progress Notes * Yue Eubanks - 03/06/2024 3:20 PM EST CHW Yue Eubanks/KENDRA Pinedo RN placed outbound call to patient to follow up on SDOH needs.Patient's name, and address confirmed. Patient states is doing well. Patient was reminded of upcoming appts and stated he has transportation to all appts, patient also discussed his housing situation to me and stated he will soon receive an eviction letter due to owing about [id number] due to patient losing his job, patient stated he already received help though way finders and does not qualify for more help. I asked patient he is not too sure where he will go yet but, if need be, will go to a skilled nursing but is worried about his pets. I let him know that there is a new skilled nursing opening in [place] that will accept pets. CHW will send all resources through mail and continue to help with housing situation. No further questions or concerns. CHW reinforced direct contact information or KENDRA for any additional questions or concerns and extended clinic hours on Mondays and Wednesdays, and Walk-In Urgent Care Located in [facility] of [facility]. Patient provided with after-hours line for [facility], , which offer nighttime triage service and option to transfer [facility] online advertising director [facility]. Patient verbalizes understanding, and able to repeat back to display card writer. A follow up call will be placed within 10 days, patient agrees with plan. documented in this encounter Plan of Treatment Upcoming Encounters Date Type Department Care Team ([facility] st Contact Info) Description 03/18/2024 9:30 AM EST Medication Management [facility] [address] [place] [address] [phone] Kourtney Su PharmD [address] [place] [phone] 05/06/2024 10:00 AM EDT Office Visit [facility] [address] [place] [address] Matilde Calabrese MD [address] [place] [address] [phone] documented as of this encounter Visit Diagnoses Not on filedocumented in this encounter Additional Health Concerns Assessment Noted Time PHQ-9 Depression Total Score: 18 024 9:55 AM EST documented as of this encounter Care Teams Heat Regulator Relationship Specialty Start Date End Date Matilde Calabrese MD [address] [place] [address] [phone] PCP - General Internal Medicine 11/23/23 Kourtney Su PharmD [address] [place] [address] [phone] Pharmacist Internal Medicine 12/05/23 Cecily Pinedo RN [address] [place] [address] Gum Rolling Machine TenderRegistered Mail Clerk 01/08/24 [facility] 01/09/24 documented as of this encounter
--- OUTSIDE RECORDS SUMMARY | 2024-03-12 17:24 | XMS_ITS | Encounter Summary ---
Author Organization [employer] Address [address] [facility] 7t [place] [address] Care Team Providers Care President Financial Institution Name Role Phone Matilde Calabrese MD Primary Care Provide r Kourtney Su PharmD Unavailable [phone] Cecily Pinedo RN Unavailable [phone] Encounter Details Date Type Department Care Team (Late st Contact Info) Description 02/26/2024 Telephone [facility] [address] [place], [place] [phone] Chante Davis RN [address] [place], [place] [phone] Social History Tobacco Use Types Packs/Day Years [...] encounter Miscellaneous Notes * Telephone Encounter - Chante Davis RN - 02/26/2024 1:40 PM EST Consulted with pcp who agreed to send colace and Miralax to the pharmacy for pt. T/C to pt for status check. Pt reports last bm was yesterday. Pt reports that every morning he wakes up with some abd cramping and feeling bloated. Reviewed importance of regular exercise, good hydration and increased fiber. Recommended that pt rtc is symptoms persist. Pt reports agreement with plan. * Telephone Encounter - Evelio Hanna - 02/26/2024 11:19 AM EST Tc from pt returning call regarding prior message. Contact pt at [phone] * Telephone Encounter - Chante Davis RN - 02/26/2024 10:54 AM EST Incoming call from Kourtney in pharmacy who reports that during televisit pt reported some constipation and elevated blood pressure. T/C to pt for status check and to schedule an appt as needed. No answer, v/m left to return call to Red team nurses. documented in this encounter Plan of Treatment Upcoming Encounters Date Type Department Care Team (Late st Contact Info) Description 03/18/2024 9:30 AM EST Medication Management [address] [address] Kourtney Su PharmD [address] [place] [address] 05/06/2024 10:00 AM EDT Office Visit [address] [address] Matilde Calabrese MD [address] [place] [phone] documented as of this encounter Visit Diagnoses Not on filedocumented in this encounter Additional Health Concerns Assessment Noted Time PHQ-9 Depression Total Score: 18 024 9:55 AM EST documented as of this encounter Care Teams President Financial Institution Relationship Specialty Start Date End Date Matilde Calabrese MD [address] [place] [phone] PCP - General Internal Medicine 11/23/23 Kourtney Su PharmD [address] [place] [address] Pharmacist Internal Medicine 12/05/23 Cecily Pinedo RN [address] [place] [phone] Boat MechanicBook Cleaner 01/08/24 [facility] 01/09/24 documented as of this encounter
--- OUTSIDE RECORDS SUMMARY | 2024-03-12 17:24 | XMS_ITS | Encounter Summary ---
Author Organization [employer] Address [address] [facility] [address] 7t [place] [address] Care Team Providers Care Toxicologist Name Role Phone Matilde Calabrese MD Primary Care Provide r Kourtney Su PharmD Unavailable [phone] Cecily Pinedo RN Unavailable [phone] Encounter Details Date Type Department Care Team (Late st Contact Info) Description 03/12/2024 Telephone [facility] [address] [place] [address] Cecily Pinedo RN [address] [place] [address] Social History Tobacco Use Types Packs/Day Years [...] Telephone Encounter - Cecily Pinedo RN - 03/12/2024 11:58 AM EST CM received voicemail from patient today. Call returned. Patient states he called the office yesterday due to experiencing low blood sugar readings. Per patient, was able to talk to Rhina at [facility] pharmacy and states this has been taken care of. Patient also inquiring on form to prevent electricity from being shut off. CM advised he f/u with his electrical company to request the form and then drop this form off to the medical records department. He verbalizes understanding and agrees. documented in this encounter Plan of Treatment Upcoming Encounters Date Type Department Care Team (Late st Contact Info) Description 03/18/2024 9:30 AM EST Medication Management [facility] [address] [place] [phone] Kourtney Su, PharmD [address] [place] [address] 05/06/2024 10:00 AM EDT Office Visit [facility] [address] [place] [address] Matilde Calabrese MD [address] [place] [address] documented as of this encounter Visit Diagnoses Not on filedocumented in this encounter Additional Health Concerns Assessment Noted Time PHQ-9 Depression Total Score: 18 024 9:55 AM EST documented as of this encounter Care Teams Toxicologist Relationship Specialty Start Date End Date Matilde Calabrese MD [address] [place] [address] PCP - General Internal Medicine 11/23/23 Kourtney Su PharmD [address] [place] [phone] Pharmacist Internal Medicine 12/05/23 Cecily Pinedo, ROSA [address] [place] [address] Cw OperatorUmbrella Tipper 01/08/24 [facility] 01/09/24 documented as of this encounter
--- OUTSIDE RECORDS SUMMARY | 2024-03-12 17:24 | XMS_ITS | Encounter Summary ---
Author Organization [employer] Address 75 [facility] 7t [place] [address] Care Team Providers Care Screw Down Name Role Phone Matilde Calabrese MD Primary Care Provide r Kourtney Su PharmD Unavailable [phone] Cecily Pinedo RN Unavailable [phone] Reason for Referral * Neurology (Routine) - Authorized Specialty Diagnoses / Procedures Referred By Contac t Referred To Contact Diagnoses Bilateral wrist pain Procedures Nerve conduction test Matilde Calabrese MD [address] [place] [address] Phone: tel: fax: [address] Phone: tel: fax: Referral ID Status Reason Start Date Expiration Date V isits Requested Visits Authorized [id number] Authorized 03/07/2024 03/07/2025 1 1 Reason for Visit * Reason Onset Date Comments Care Coordination 03/07/2024 Encounter Details Date Type Department Care Team (Late st Contact Info) Description 03/07/[address] [facility] [address] [place] [address] Cecily Pinedo RN [address] [place], [place] [phone] Care Coordination Social History Tobacco Use Types Packs/Day Years [...] encounter Miscellaneous Notes * Telephone Encounter - Eli Ramsay RN - 03/07/2024 11:54 AM EST TC placed to patient [phone] to inform of below message. Patient verbalized understanding and is aware he will receive a call from the hospital in regards to scheduling of nerve conduction test.Patient to f/u PRN. * Telephone Encounter - Cecily Pinedo RN - 03/07/2024 8:45 AM EST Please see CM note from 03/07/24. Patient is requesting f/u visit with PCP to discuss carpal tunnel syndrome. Patient seen on 02/15/24. Patient given wrist splint which he reports using with no effect. Per office visit note, patient to f/u if symptoms persist. Consider referral to Ortho/ EMG. Pleasecontact patient at [phone]. Thank you. documented in this encounter Plan of Treatment Upcoming Encounters Date Type Department Care Team (Late st Contact Info) Description 03/18/2024 9:30 AM EST Medication Management [facility] [address] [place] [phone] Kourtney Su, PharmD [address] [place] [phone] 05/06/2024 10:00 AM EDT Office Visit [facility] [address] [place] [phone] Matilde Calabrese MD [address] [place] [address] Scheduled Orders Name Type Priority Associated Diagnoses Orde r Schedule Nerve conduction test Neurology Routine Bilateral wrist pain Expected: 03/07/2024 (Approximate), Expires: 03/07/2025 documented as of this encounter Visit Diagnoses Diagnosis Bilateral wrist pain- Primary documented in this encounter Additional Health Concerns Assessment Noted Time PHQ-9 Depression Total Score: 18 024 9:55 AM EST documented as of this encounter Care Teams Screw Down Relationship Specialty Start Date End Date Matilde Calabrese MD [address] [place] [address] PCP - General Internal Medicine 11/23/23 Kourtney Su PharmD [address] [place] [address] Pharmacist Internal Medicine 12/05/23 Cecily Pinedo RN [address] [place] [address] CryptanalystEmergency Management Program Specialist 01/08/24 [facility] 01/09/24 documented as of this encounter
--- OUTSIDE RECORDS SUMMARY | 2024-03-12 17:24 | XMS_ITS | Encounter Summary ---
Author Organization [employer] Address 75 [facility] 7t [place] [address] Care Team Providers Care Tug Captain Name Role Phone Matilde Calabrese MD Primary Care Provide r Kourtney Su PharmD Unavailable [phone] Cecily Pinedo RN Unavailable [phone] Reason for Visit * Reason Onset Date Comments Call Back Request 02/29/2024 Encounter Details Date Type Department Care Team ([facility] Contact Info) Description 02/29/2024 Telephone [facility] [address] [place], [place] [phone] Matilde Calabrese MD [address] [place] [address] Call Back Request Social History Tobacco Use Types Packs/Day Years [...] encounter Miscellaneous Notes * Telephone Encounter - Faisal Eubanks - 02/29/2024 12:45 PM EST Tc from pt requesting a call back to discuss BP monitor. documented in this encounter Plan of Treatment Upcoming Encounters Date Type Department Care Team (Late st Contact Info) Description 03/18/2024 9:30 AM EST Medication Management [facility]INE [address] [place] [address] Kourtney Su, PharmD [address] [place] [address] 05/06/2024 10:00 AM EDT Office Visit [facility] [address] [place] [address] Matilde Calabrese MD [address] [place] [address] documented as of this encounter Visit Diagnoses Not on filedocumented in this encounter Additional Health Concerns Assessment Noted Time PHQ-9 Depression Total Score: 18 024 9:55 AM EST documented as of this encounter Care Teams Tug Captain Relationship Specialty Start Date End Date Matilde Calabrese MD [address] [place] [address] PCP - General Internal Medicine 11/23/23 Kourtney Su PharmD [address] [place] [address] Pharmacist Internal Medicine 12/05/23 Cecily Pinedo, ROSA [address] [place] [address] Card DofferPyrotechnics Press Tender 01/08/24 [facility] 01/09/24 documented as of this encounter
--- OUTSIDE RECORDS SUMMARY | 2024-03-12 17:24 | XMS_ITS | Encounter Summary ---
Author Organization [employer] Address [address] [facility] [address] 7t [place] [address] Care Team Providers Care Mcat Tutor Name Role Phone Matilde Calabrese MD Primary Care Provide r Kourtney Su PharmD Unavailable [phone] Cecily Pinedo RN Unavailable [phone] Encounter Details Date Type Department Care Team (Latest Contact Info) Description 03/12/2024 Travel Social History Tobacco Use Types Packs/Day [...] Description 03/18/2024 9:30 AM EST Medication Management [facility]INE [address] [place] [address] Kourtney Su PharmD [address] [place] [address] 05/06/2024 10:00 AM EDT Office Visit [facility]INE [address] [place] [address] Matilde Calabrese MD [address] [place] [address] documented as of this encounter Visit Diagnoses Not on filedocumented in this encounter Additional Health Concerns Assessment Noted Time PHQ-9 Depression Total Score: 18 024 9:55 AM EST documented as of this encounter Care Teams Mcat Tutor Relationship Specialty Start Date End Date Matilde Calabrese MD [address] [place] [address] PCP - General Internal Medicine 11/23/23 Kourtney Su, PharmD [address] [place] [phone] Pharmacist Internal Medicine 12/05/23 Cecily Pinedo RN [address] [place] [phone] Superintendent Of GenerationNursing Consultant 01/08/24 [facility] 01/09/24 documented as of this encounter
--- OUTSIDE RECORDS SUMMARY | 2024-03-12 17:24 | XMS_ITS | Encounter Summary ---
Author Organization [employer] Address [address] [address] [facility] [place] [address] Care Team Providers Care Geothermal Production Manager Name Role Phone Matilde Calabrese MD Primary Care Provide r Kourtney Su PharmD Unavailable [phone] Cecily Pinedo RN Unavailable [phone] Encounter Details Date Type Department Care Team (Late st Contact Info) Description 02/26/2024 10:30 AM EST Telemedicine [facility] [address] [place] [address] Kourntey Su, PharmD [address] [place] [address] Type 2 diabetes mellitus with hyperglycemia, with long-term current use of insulin ([facility]) (Primary Dx) Social History Tobacco Use Types [...] as of this encounter Progress Notes * Kourtney Su PharmD - 02/26/2024 10:30 AM EST Images from the original note were not included. Pharmacy Consult Visit Type: CDTM Pharmacist: Kourtney Su PharmD Raji Andesron is a 38 y.o. year old patient here for follow up visit completed via televisit VNA services through [email or web address] and [facility] changes to be faxed there to [phone] Attn Muriel Subjective History: General / Intake (updated 02/18/24) Allergies: is allergic to ibuprofen and iodinated contrast media. Read/Write: Yes, in Yi Recent Hospitalizations: Yes 11/11/23-11/13/[address] [facility] 11/02/2023 -11/04/2023 for cellulitis, ED 02/06/24 for rhinovirus, ED 02/04/24 abscess Social History as reported by patient: Tobacco: Past quit 2 years ago Alcohol: socially Caffeine: Current, 1 cup(s)/week Illicit drugs: Current marijuana Diet: Reports reducing sugar in diet Exercise: not at all due to pain Adherence / patient self-management Patient has not yet started MedBox program; will remind patient to provide home medications for 02/26/23 appointment Denies missed doses Denies NINOSKA to current treatment regimen with exception to constipation (see note below) OTC medication, vitamin, supplement use: denies Type 2 Diabetes Main concern patient wished to discuss during today's visit was regarding constipation and cramping; patient attributes timing of this to recent increase in dose of Trulicity Reports improvement in BG following 02/19/24 visit and states an average of 220mg/dL Was recently seen 02/19/24 at [facility] and treated for hyperglycemia Reports previously having been homeless and this contributing to poor diet and uncontrolled diabetes, states he is now living with partner and working on making dietary and lifestyle improvements. Ismotivated to improve this. Reports intense fear of needles; states he requested his partner assist with insulin administrationhowever she was not able to do so due to her fear of needles and this is causing nonadherence to insulin regimen; denies currently using insulin: VNA services have since been started for insulin administration Denies fear with Trulicity use as he states he cannot see the needle reports it having been discontinued in the hospital for plan of focusing on inuslin use only Reports adherence to Trulicity 3mg once weekly Pertinent negatives include polyuria, polydypsia, blurred vision Patient currently SMBG using Entelo Cherelle 2 using phone jacinto for reader. Hypertension Reports recent home BP readings of 125/92mmHg, 125/114mmHg Pertinent negatives include chest pain, head ache, blurry vision, dizziness Reports having home BP monitor Objective History: Treatment history/considerations: PMH: GAIL JASBIR history Morbid obesity Cellulitis Gout Diabetic polyneuropathy Mixed anxiety and depressive disorder Medication: Metformin previously discontinued following kidney function concerns Caution with diuretics: gout Recent labs: Lab Results Component Value Date ALT 39 02/18/2024 AST 25 02/18/2024 LDLCHOLCAL 75 02/18/2024 TRIG 319 (H) 02/18/2024 K 4.4 02/18/2024 NA 133 (L) 02/18/2024 MICROALBCREU 24.7 02/18/2024 CREATININE 1.15 02/18/2024 EGFR >60 02/18/2024 HGBA1C 10.3 (A) 02/18/2024 HGBA1C 11.7 (A) 11/14/2023 HGBA1C 12.9 (A) 03/20/2023 Recent blood pressure readings: BP Readings from Last 4 Encounters: 02/18/24 130/90 02/15/24 (!) 149/99 02/02/24 (!) 159/109 01/08/24 (!) 134/95 Pulse Readings from Last 4 Encounters: 02/18/24 96 02/15/24 84 02/02/24 85 01/08/24 101 Immunizations Due: Influenza vaccine, COVID19 vaccine, HepB #2, HepA HepB #2 administered; patient declines other vaccines at this time Patient consented to the vaccines(s) documented above. Intake questionnaire completed with patient prior to administration and no contraindications exist. Preferred Pharmacy: [facility] (Planned MedBox start, will follow up) Assessment/Plan: Type 2 Diabetes Pharmacologic Therapy: Trulicity 3mg once weekly (Weds) Tresiba flextouch 16 units once daily Additional recommendations per ADA: On aspirin: No, risk > benefit On statin: No On ACEI/ARB: No (lisinopril 10mg) Dental Exam in the past 6 mo: No Eye Exam in the past 12 mo: No Goals of Therapy per the ADA Standards of Medical Care in Diabetes Achieve A1c of < 7.0% while also minimizing episodes of hypoglycemia Plan: Increase tresiba flextouch to 18 units once daily Per REDUCE-it criteria, patient categorized as high ASCVD risk : T2DM, HDL<40, HTN: moderate intensity statin atorvastatin 20mg once daily will be started and follow up LFT and FLP labs ordered for 4-12 weeks Chante LEE discussed patient concern of constipation with PCP who prescribed colace and miralax; patient stated understanding of this; patient agrees this may be potential NINOSKA of trulicity and will continue close monitoring/follow up. Patient to follow up in [facility] 02/27/24 Education: Healthy diet and lifestyle. Discussed role of A1c monitoring, A1c and SMBG goals Reviewed risks of macro- and microvascular complications of uncontrolled DM. Reviewed signs, symptoms and treatments of hypoglycemia to which patient confirmed understanding. Hypertension Pharmacotherapy: Carvedilol 6.25mg twice daily Lisinopril 10mg once daily Amlodipine 10mg once daily Goals of Therapy per JNC 8: Achieve BP <140/90mmHg Plan: Requested patient present to [facility] clinic 02/27/24 for BP check; will assess if potential increase in dose of carvedilol is warranted (hold in dose increase of lisinopril due to noted hyponatremia) Patient to follow up in [facility] 02/27/24 Education: Reviewed benefits of DASH diet for improved BP control. Counseling provided to SMBP daily & log results for review in follow up. Reviewed BP goals, patient instructed to call if extremes of BP are noted prior to next scheduled visit. documented in this encounter Plan of Treatment Upcoming Encounters Date Type Department Care Team (Late st Contact Info) Description 03/18/2024 9:30 AM EST Medication Management [facility] [address] [place] [address] Kourtney Su PharmD [address] [place] [address] 05/06/2024 10:00 AM EDT Office Visit [facility] [address] [place] [address] Matilde Calabrese MD [address] [place] [address] Scheduled Orders Name Type Priority Associated Diagnoses Orde r Schedule Hepatic Function Panel Lab Routine Type 2 diabetes mellitus with hyperglycemia, with long-term current use of insulin (CMS/HCC) Expected: 03/28/2024 (Approximate), Expires: 02/25/2025 Lipid Panel, Standard Lab Routine Type 2 diabetes mellitus with hyperglycemia, with long-term current use of insulin (CMS/HCC) Expected: 03/28/2024 (Approximate), Expires: 02/25/2025 documented as of this encounter Visit Diagnoses Diagnosis Type 2 diabetes mellitus with hyperglycemia, with long-term current use of insulin (CMS/HCC)- Primary documented in this encounter Additional Health Concerns Assessment Noted Time PHQ-9 Depression Total Score: 18 024 9:55 AM EST documented as of this encounter Care Teams Geothermal Production Manager Relationship Specialty Start Date End Date Mtailde Calabrese MD [address] [place] [address] PCP - General Internal Medicine 11/23/23 Kourtney Su PharmD [address] [place] [address] Pharmacist Internal Medicine 12/05/23 Cecily Pinedo, ROSA [address] [place] [phone] L TackerButcher Apprentice 01/08/24 [facility] 01/09/24 documented as of this encounter
--- OUTSIDE RECORDS SUMMARY | 2024-03-12 17:24 | XMS_ITS | Encounter Summary ---
Author Organization [employer] Address [address] [facility] 7[address] [place] [address] Care Team Providers Care Rice Field Worker Name Role Phone Matilde Calabrese MD Primary Care Provide r Kourtney Su PharmD Unavailable [phone] Cecily Pinedo RN Unavailable [phone] Reason for Referral * Consultation (STAT) - Authorized Specialty Diagnoses / Procedures Referred By Carola t Referred To Contact Optometry Diagnoses Ocular pain, right eye Christian Muñoz MD [address] [place] [address] Phone: tel: fax: [facility] OPTOMETRY [address] [place] [address] Phone: tel: fax: Referral ID Status Reason Start Date Expiration Date Visits Requested Visits Authorized [id number] Authorized Consult and Treat 03/11/2024 03/11/2025 1 1 * Imaging (STAT) - Authorized Specialty Diagnoses / Procedures Referred By Contac t Referred To Contact Radiology Diagnoses Ocular pain, right eye Acute intractable headache, unspecified headache type Procedures CT Orbits/Sella w/o Contrast Christian Muñoz MD [address] [place] [address] Phone: tel: fax: [facility] [address] [place], [place] Phone: tel: fax: Referral ID Status Reason Start Date Expiration Date V isits Requested Visits Authorized [id number] Authorized 03/11/2024 03/11/2025 1 1 * Imaging (Routine) - Authorized Specialty Diagnoses / Procedures Referred By Contac t Referred To Contact Radiology Diagnoses Ocular pain, right eye Acute intractable headache, unspecified headache type Procedures CT Head w/o Contrast Christian Muñoz MD [address] [place] [address] Phone: tel: fax: [address] Phone: tel: fax: Referral ID Status Reason Start Date Expiration Date V isits Requested Visits Authorized [id number] Authorized 03/11/2024 03/11/2025 1 1 Reason for Visit * Reason Comments Follow-up [facility] Encounter Details Date Type Department Care Team (Late st Contact Info) Description 03/11/2024 3:00 PM EST Office Visit [facility] [address] [place] [address] Christian Muñoz MD [address] [place], [place] [phone] Ocular pain, right eye; Acute intractable headache, unspecified headache type Social History Tobacco Use Types Packs/Day Years [...] 9.6 oz) 03/11/2024 3:22 PM EST Height - - Body Mass Index 43.27 02/15/2024 9:54 AM EST documented in this encounter Progress Notes * Christian Fuchs MD - 03/11/2024 3:00 PM EST SUBJECTIVE Raji Anderson is a 38 y.o. male who presents for Follow-up ([facility]). Mr Anderson is a patient of Dr. Youngblood 38-year-old male with insulin-dependent diabetes, hypertension who is here for an ER follow up He presented to [facility] the ER 03/09/2024 reporting right-sided headache and eye pain x 2 days. He reports that started around Sunday feels like a headache behind the right eye. Reports intermittent blurry vision. He was seen by his visiting nurse and was told to go to ER for evaluation. Patient denies any redness of the eyeball. Today patient c/o pain with extraocular movements. Denies redness, warmth, or swelling to the orbitarea. Denies fever or chills. In the ER his ocular Pressure was normal in the right eye at 12, per their note no evidence of corneal abrasion. Pt was given a migraine cocktail for report of a throbbing sensation on the right sideof his head. Pt already has appointment with ophthalmology 05/2024 but not for this reason just to discuss his DM Review of Systems Constitutional: Negative for fever. HENT: Negative for sore throat. Respiratory: Negative for cough and shortness of breath. Cardiovascular: Negative for chest pain. Gastrointestinal: Negative for abdominal pain. Neurological: Negative for headaches. Allergies Allergen Reactions Ibuprofen my dr says not to take it because my kidneys . Other Reaction(s): Renal Impairment But can take indomethacin without problems Iodinated Contrast Media Other Reaction(s): Renal Impairment OBJECTIVE Vitals: 03/11/24 1522 BP: 130/87 BP Location: Left arm Patient Position: Sitting BP Cuff Size: Adult Pulse: 84 Resp: 18 Temp: 98.9 ??F (37.2 ??C) TempSrc: Temporal SpO2: 98% Weight: 284 lb 9.6 oz (129 kg) Physical Exam Vitals reviewed. Constitutional: Appearance: Normal appearance. HENT: Head: Normocephalic and atraumatic. Right Ear: External ear normal. Left Ear: External ear normal. Nose: Nose normal. Mouth/Throat: Mouth: Mucous membranes are moist. Eyes: General: Lids are normal. Vision grossly intact. Right eye: No foreign body, discharge or hordeolum. Left eye: No foreign body, discharge or hordeolum. Extraocular Movements: Extraocular movements intact. Conjunctiva/sclera: Conjunctivae normal. Right eye: Right conjunctiva is not injected. No chemosis, exudate or hemorrhage. Left eye: Left conjunctiva is not injected. No chemosis, exudate or hemorrhage. Comments: Pt c/o pain on the right eye with ocular movements Cardiovascular: Rate and Rhythm: Normal rate and regular rhythm. Pulmonary: Effort: Pulmonary effort is normal. Breath sounds: Normal breath sounds. Skin: General: Skin is warm. Neurological: Mental Status: He is alert. Mental status is at baseline. Assessment/Plan Problem List Items Addressed This Visit Ocular pain, right eye Pt with c/o persistent right ocular pain x 5 days in the absence of any injury. No fever. He does c/o right sided headache as well. Seen at [facility] ER, intraocular pressure per ER report on right eye was normal. On today's exam pt has photophobia and painful extraocular movements on the right. No redness, mildtenderness to palpation right eye. Etiology ? Ocular migraine vs other etiologies Plan: Stat Orbital and head CT. CBC, ESR. Pt to be seen by our Oil[employer] Plant [employer] Field Operator Dr. Gresham tomorrow at 3:45 PM Follow up with PCP in [address] Head w/o Contrast CT Orbits/Sella w/o Contrast Referral to [facility] Eye Care CBC auto differential Sed Rate by Modified Westergren Basic Metabolic Panel Acute intractable headache Relevant Orders CT Head w/o Contrast CT Orbits/Sella w/o Contrast Basic Metabolic Panel documented in this encounter Miscellaneous Notes * Assessment & Plan Note - Christian Fuchs MD - 03/11/2024 4:17 PM EST Associated Problem(s): Ocular pain, right eye Pt with c/o persistent right ocular pain x 5 days in the absence of any injury. No fever. He does c/o right sided headache as well. Seen at [facility] ER, intraocular pressure per ER report on right eye was normal. On today's exam pt has photophobia and painful extraocular movements on the right. No redness, mildtenderness to palpation right eye. Etiology ? Ocular migraine vs other etiologies Plan: Stat Orbital and head CT. CBC, ESR. Pt to be seen by our [employer] Dr. Gresham tomorrow at 3:45 PM Follow up with PCP in 1 week documented in this encounter Plan of Treatment Upcoming Encounters Date Type Department Care Team (Late st Contact Info) Description 03/18/2024 9:30 AM EST Medication Management [facility] [address] [place] [phone] Kourtney Su PharmD [address] [place] [phone] 05/06/2024 10:00 AM EDT Office Visit [facility] [address] [place] [phone] Matilde Calabrese MD [address] [place] [phone] Scheduled Orders Name Type Priority Associated Diagnoses Orde r Schedule CT Head w/o Contrast Imaging Routine Ocular pain, right eye Acute intractable headache, unspecified headache type Ordered: 03/11/2024 CT Orbits/Sella w/o Contrast Imaging STAT Ocular pain, right eye Acute intractable headache, unspecified headache type Ordered: 03/11/2024 Scheduled Referrals Name Type Priority Associated Diagnoses Orde r Schedule Referral to [facility] Eye Care Outpatient Referral STAT Ocular pain, right eye Expected: 03/11/2024 (Approximate), Expires: 03/11/2025 documented as of this encounter Procedures Procedure Name Priority Date/Time Associated Diagnosis Comments CBC WITH AUTO DIFFERENTIAL Routine 03/12/2024 2:58 PM EST Ocular pain, right eye SED RATE BY MODIFIED WESTERGREN Routine 03/12/2024 2:58 PM EST Ocular pain, right eye BASIC METABOLIC PANEL Routine 03/12/2024 2:58 PM EST Ocular pain, right eye Acute intractable headache, unspecified headache type documented in this encounter Results * (ABNORMAL) Basic Metabolic Panel (03/12/2024 2:58 PM EST) Sodium 135 135 - 145 mmol/L [facility] Potassium 4.3 3.3 - 5.1 mmol/L [facility] Chloride 105 96 - 108 mmol/L [facility] Carbon Dioxide 25 22 - 29 mmol/L [facility] Anion Gap 9(L) 12 - 20 [facility] Urea Nitrogen (BUN) 13 9 - 16 mg/dL [facility] Creatinine, Serum 0.93 0.5 - 1.4 mg/dL [facility] Estimated Glomerular Filt Rate >60 [facility] Comment:Chronic Kidney Disea se: Estimated GFR < 60 mL/min/[id number] Kidney Disease: Estimated GFR < 15 mL/min/1.73m2 Glucose 227(H) 60 - 115 mg/dL [facility] Calcium 9.6 8.4 - 10.2 mg/dL [facility] Blood Venous blood specimen / Unknown 03/12/2024 2:58 PM EST 03/12/2024 4:20 PM EST Christian Fuchs MD LAB BLOOD ORDERABLES Final Result [facility] [address] [place] [address] [phone] * (ABNORMAL) Sed Rate by Modified Westergren (03/12/2024 2:58 PM EST) Erythrocyte Sedimentation Rate 34(H) 0 - 15 MM/HR [facility] Comment:Patients with polycy themia and many hemoglobin abnormalitiesmay have depressed sed rates whereas patients with anemiamay have elevated sed rates. Blood Venous blood specimen / Unknown 03/12/2024 2:58 PM EST 03/12/2024 4:20 PM EST Christian Fuchs MD LAB BLOOD ORDERABLES Final Result [facility] [address] [place], [place] [phone] * (ABNORMAL) CBC auto differential (03/12/2024 2:58 PM EST) White Blood Count 9.5 4.8 - 10.8 X10*3/uL [facility] Red Blood Count 4.66 4.60 - 5.80 X10*6/uL [facility] Hemoglobin 13.9(L) 14.0 - 18.0 g/dl [facility] Hematocrit 40.0(L) 42.0 - 52.0 % [facility] Mean Corpuscular Volume 85.8 80.0 - 98.0 fL [facility] Mean Corpuscular Hemoglobin 29.8 27.0 - 33.0 pg [facility] Mean Corpuscular HGB Conc 34.8 31.0 - 36.0 g/dl [facility] Red Cell Distribution Width 12.3 11.0 - 16.0 % [facility] Platelet Count 326 160 - 400 X10*3/uL [facility] Mean Platelet Volume 10.4 9.4 - 12.4 fL [facility] Neutrophils Percent Auto 58.0 45 - 73 % [facility] Imm Gran Pct Auto 0.3 0.0 - 0.4 % [facility] Lymphocytes Percent Auto 30.5 20 - 40 % [facility] Monocytes Percent Auto 6.6 2 - 11 % [facility] Eosinophils Percent Auto 3.4 0 - 4 % [facility] Basophils Percent Auto 1.2 0 - 2 % [facility] NRBC Pct Auto 0.0 0.0 - 0.2 /100WBC [facility] Neutrophils Absolute Auto 5.5 2.0 - 8.3 x10*3/uL [facility] Imm Gran Abs Auto 0.03 0.00 - 0.03 X10*3/uL [facility] Lymphocytes Absolute Auto 2.9 1.2 - 4.9 X10*3/uL [facility] Monocytes Absolute Auto 0.6 0.1 - 1.2 X10*3/uL [facility] Eosinophils Absolute Auto 0.3 0.0 - 0.4 X10*3/uL [facility] Basophils Absolute Auto 0.1 0.0 - 0.2 X10*3/uL [facility] NRBC Abs Auto 0.000 0.0 - 0.012 X10*3/uL [facility] Blood Venous blood specimen / Unknown 03/12/2024 2:58 PM EST 03/12/2024 4:20 PM EST us Christian Fuchs MD LAB BLOOD ORDERABLES Final Result Performing Organization Address City/State/[facility] Co de Phone Number [facility] [address] [place] [address] [phone] documented in this encounter Visit Diagnoses Diagnosis Ocular pain, right eye Acute intractable headache, unspecified headache type documented in this encounter Additional Health Concerns Assessment Noted Time PHQ-9 Depression Total Score: 18 024 9:55 AM EST documented as of this encounter Care Teams Rice Field Worker Relationship Specialty Start Date End Date Matilde Calabrese MD [address] [place] [address] PCP - General Internal Medicine 11/23/23 Kourtney Su PharmD [address] [place] [address] Pharmacist Internal Medicine 12/05/23 Cecily Pinedo, ROSA [address] [place] [phone] Loss Control ManagerHigh Density Talc Coater Operator 01/08/24 [facility] 01/09/24 documented as of this encounter
--- OUTSIDE RECORDS SUMMARY | 2024-03-12 17:24 | XMS_ITS | Encounter Summary ---
Author Organization [employer] Address [address] [facility] [address] [place] [address] Care Team Providers Care Customer Service Voice Name Role Phone Matilde Calabrese MD Primary Care Provide r Kourtney Su PharmD Unavailable [phone] Cecily Pinedo RN Unavailable Encounter Details Date Type Department Care Team (Latest Contact Info) Description 03/11/2024 Travel Social History Tobacco Use Types Packs/Day [...] Description 03/18/2024 9:30 AM EST Medication Management [facility] [address] [place] [phone] Kourtney Su PharmD [address] [place] [phone] 05/06/2024 10:00 AM EDT Office Visit [facility] [address] [place] [phone] Matilde Calabrese MD [address] [place] [phone] documented as of this encounter Visit Diagnoses Not on filedocumented in this encounter Additional Health Concerns Assessment Noted Time PHQ-9 Depression Total Score: 18 024 9:55 AM EST documented as of this encounter Care Teams Customer Service Voice Relationship Specialty Start Date End Date Matilde Calabrese MD [address] [place] [phone] PCP - General Internal Medicine 11/23/23 Kourtney Su, PharmD [address] [place] [phone] Pharmacist Internal Medicine 12/05/23 Cecily Pinedo RN [address] [place] [phone] Rpg DeveloperPile Driver 01/08/24 [facility] 01/09/24 documented as of this encounter
--- OUTSIDE RECORDS SUMMARY | 2024-03-12 17:24 | XMS_ITS | Encounter Summary ---
Author Organization [employer] Address [address] [facility] [address] 7t [place] [address] Care Team Providers Care Screen Printing Supervisor Name Role Phone Matilde Calabrese MD Primary Care Provide r Kourtney Su PharmD Unavailable [phone] Cecliy Pinedo RN Unavailable [phone] Encounter Details Date Type Department Care Team (Late st Contact Info) Description 02/28/2024 Telephone [facility] MEDICINE [address] [place], [place] [phone] Matilde Calabrese MD [address] [place] [employer], [place] [phone] Social History Tobacco Use Types Packs/Day Years [...] Description 03/18/2024 9:30 AM EST Medication Management [facility] MEDICINE [address] [place] [address] Kourtney Su, PharmD [address] [place] [address] 05/06/2024 10:00 AM EDT Office Visit [facility] MEDICINE [address] [place] [address] 114[address] Matilde Calabrese MD [address] [place] [phone] documented as of this encounter Visit Diagnoses Not on filedocumented in this encounter Additional Health Concerns Assessment Noted Time PHQ-9 Depression Total Score: 18 024 9:55 AM EST documented as of this encounter Care Teams Screen Printing Supervisor Relationship Specialty Start Date End Date Matilde Calabrese MD [address] [place] [phone] PCP - General Internal Medicine 11/23/23 Kourtney Su PharmD [address] [place] [address] Pharmacist Internal Medicine 12/05/23 Cecily Pinedo RN [address] [place] [phone] Sheet Metal Layout WorkerMill House Supervisor 01/08/24 [facility] 01/09/24 documented as of this encounter
--- OUTSIDE RECORDS SUMMARY | 2024-03-12 17:25 | XMS_ITS | Encounter Summary ---
Author Organization [employer] Address 75 [facility] 7t [place] [address] Care Team Providers Care Executive Vice President Business Development Name Role Phone Matilde Calabrese MD Primary Care Provide r Kourtney Su PharmD Unavailable [phone] Cecily Pinedo RN Unavailable [phone] Encounter Details Date Type Department Care Team (Late st Contact Info) Description 11/23/2023 Orders Only [facility] CHC MED & PEDS [address] [place], [place] [phone] Alexandre Sandoval MD [address] [place] [address] Type 2 diabetes mellitus with hyperglycemia, without long-term current use of insulin ([facility]) Social History Tobacco Use Types Packs/Day Years Used Date Smoking Tobacco: Never Passive Smoke Exposure: Never Smokeless Tobacco: Never Alcohol Use Standard Drinks/Week Comments Never 0 (1 standard drink = 0.6 oz pur e alcohol) Housing Stability Answer Date Recorded What is your housing situation today? I have sandy sondra 04/27/[address] you li ve. Do you have problems with any of the following? None of the above 04/27/2023 Food Insecurity Answer Date Recorded Within the past 12 months, y ou worried that your food would run out before you got money to buy more: Often true 03/13/2023 Within the past 12 months,th e food you bought just didn't last and you didn't have enough money to get more: Often true Transportation Answer Date Recorded In the past 12 months, has l ack of transportation kept you from medical appts, meetings, work or from getting things needed for daily living? Yes, it has kept me from non-medical meetings, work, or getting things that I need 03/13/2023 Utilities Answer Date Recorded In the past 12 months, has t he electric, gas, oil or water company threatened to shut off services in your home? No 03/13/2023 Sex and Gender Information Value Date Recorded Sex Assigned at Male 12/19/2021 10:34 AM EDT Legal Sex Male 10:34 AM EDT Gender Identity Male 12/19/2021 10:34 AM EDT Sexual Orientation Straight 12/19/2021 10 :34 AM EDT documented as of this encounter Plan of Treatment Upcoming Encounters Date Type Department Care Team (Late st Contact Info) Description 03/18/2024 9:30 AM EST Medication Management [facility] MEDICINE [address] [place] [address] Kourtney Su PharmD [address] [place] [address] 05/06/2024 10:00 AM EDT Office Visit [facility] MEDICINE [address] [place] [address] 8[address] Matilde Calabrese MD [address] [place] [phone] documented as of this encounter Visit Diagnoses Diagnosis Type 2 diabetes mellitus with hyperglycemia, without long-term current use of insulin ([facility]) documented in this encounter Care Teams Executive Vice President Business Development Relationship Specialty Start Date End Date Matilde Calabrese MD [address] [place] [phone] PCP - General Internal Medicine 11/23/23 Kourtney Su, PharmD [address] [place] [address] 18812 Pharmacist Internal Medicine 12/05/23 Cecily Pinedo RN [address] [place] [phone] Regional ForesterRibbon Cleaner 01/08/24 [facility] 01/09/24 documented as of this encounter
--- OUTSIDE RECORDS SUMMARY | 2024-03-12 17:25 | XMS_ITS | Encounter Summary ---
Author Organization [employer] Address 75 [facility] 7t [place] [address] Care Team Providers Care Knitting Tester Name Role Phone Matilde Calabrese MD Primary Care Provide r Kourtney Su PharmD Unavailable [phone] Cecily Pinedo RN Unavailable [phone] Reason for Referral * Consultation (Routine) - Authorized Specialty Diagnoses / Procedures Referred By Carola mujica Referred To Contact Family Medicine Diagnoses Hidradenitis suppurativa Silvia George FNP [address] [place] [address] Phone: tel: fax: Referral ID Status Reason Start Date Expiration Date Visits Requested Visits Authorized [id number] Authorized Specialty Services Required 02/16/2025 1 1 Encounter Details Date Type Department Care Team ([facility] st Contact Info) Description 02/15/2024 10:00 AM EST Office Visit [facility] ED MED & PEDS [address] [place] [address] Silvia George FNP [address] [place] [address] Carpal tunnel syndrome, unspecified laterality (Primary Dx); Type 2 diabetes mellitus with hyperglycemia, with long-term current use of insulin ([facility]); Hidradenitis suppurativa; Essential (primary) hypertension Social History Tobacco Use Types Packs/Day Years [...] Sign Reading Time Taken Comments Blood Pressure 149/99 02/15/2024 9:54 AM EST Pulse 84 02/15/2024 9:54 AM EST Temperature 36.4 ??C (97.6 ??F) 02/15/2024 9:54 AM ES T Respiratory Rate 20 02/15/2024 9:54 AM EST Oxygen Saturation 98% 02/15/2024 9:54 AM EST Inhaled Oxygen Concentration - - Weight 123 kg (271 lb 6 oz) 02/15/2024 9:[address] Height 172.7 cm (5' 8 ) 02/15/2024 9:54 AM EST Body Mass Index 41.26 02/15/2024 9:54 AM EST documented in this encounter Progress Notes * Silvia George, DIE BARBER - 02/15/2024 10:00 AM EST Subjective: Raji Anderson is a 38 y.o. male w/ PMH GAIL, hypertension, T2DM, hypothryoid, and mood disorder, who presents to the office for a sick visit. Current concerns: Numbness/tingling bilateral fingers. Reports CTS, with hx of surgery of left wrist. Experiences numbness/tingling of fingers bilat hands. Rx for wrist splints previously prescribed, although difficulties acquiring. Will rx from on- site DME supply. Reports intermittent rash/nodules around inguinal canal and previously in axillary region when younger. Describes as red, tender. Have been drained in the past. History of hidradenitis suppurativa. Recently completed course of PO doxy x 7 days with improvement. Plan: referral to [facility] Derm team. Start topicals: clindamycin gel and BP wash. OTHER: T2DM: A1c above goal, last 11.7% in Oct 2023. Continues with Trulicity 1.5mg subcutaneous weekly, as well as Tresiba 10 units nightly. CGM in place. Did not bring reader, but does have log of home BG readings. FBG readings primarily in the 200s-300s. Plan to increase Tresiba to 12 units nightly. Has CDTM appt on 02/18/24. Review of Systems Constitutional: Negative for chills and fever. HENT: Negative for congestion. Respiratory: Negative for cough, shortness of breath and wheezing. Cardiovascular: Negative for chest pain and palpitations. Skin: Positive for color change. Neurological: Positive for numbness. Visit Vitals BP (!) 149/99 (BP Location: Right arm, Patient Position: Sitting, BP Cuff Size: Large adult) Pulse 84 Temp 97.6 ??F (36.4 ??C) (Oral) Resp 20 Ht 5' 8 (1.727 m) Wt 271 lb 6 oz (123 kg) SpO2 98% BMI 41.26 kg/m?? Smoking Status Never BSA 2.43 m?? Physical Exam Vitals reviewed. Constitutional: Appearance: Normal appearance. HENT: Head: Atraumatic. Pulmonary: Effort: Pulmonary effort is normal. Musculoskeletal: Comments: Tinel (+) bilat Neurological: Mental Status: He is alert and oriented to person, place, and time. Psychiatric: Mood and Affect: Mood normal. Behavior: Behavior normal. Problem List Items Addressed This Visit Circulatory Essential (primary) hypertension Current Assessment & Plan - BP above goal, asymptomatic - Encouraged lifestyle interventions and med adherence - Bring home BP readings to CDTM appt Endocrine/Metabolic Type 2 diabetes mellitus with hyperglycemia, with long-term current use of insulin ([facility]) Current Assessment & Plan A1c above goal Lab Results Component Value Date HGBA1C 11.7 (A) 11/14/2023 HGBA1C 12.9 (A) 03/20/2023 HGBA1C 12.8 (A) 07/18/2022 - Continue with Trulicity 1.5mg subcutaneous weekly - Increase to Tresiba 12 units nightly - F/up with CDTM appt on 02/18/24 as scheduled Infectious/Inflammatory Hidradenitis suppurativa Current Assessment & Plan - Referral to [facility] Derm team placed 02/17/24 - Start topical BP wash and clindamycin gel - Follow up precautions Relevant Medications clindamycin (Clindagel) 1 % gel benzoyl peroxide (Benzac AC) 10 % external wash Other Visit Diagnoses Carpal tunnel syndrome, unspecified laterality - Primary - Hx CTS s/p surgery left wrist. Suspect affecting right side as well - Wrist splint provided from on-site from DME supplies today - F/up if symptoms persist, consider referral to Ortho/EMG Follow up: routine care with PCP, sooner as needed documented in this encounter Miscellaneous Notes * Assessment & Plan Note - BRITTNAY Mott - 02/17/2024 5:03 PM ESTAssociated Problem(s): Essential (primary) hypertension - BP above goal, asymptomatic - Encouraged lifestyle interventions and med adherence - Bring home BP readings to CDTM appt * Assessment & Plan Note - BRITTANY Mott - 02/17/2024 5:00 PM ESTAssociated Problem(s): Hidradenitis suppurativa of multiple sites - Referral to [facility] Derm team placed 02/17/24 - Start topical BP wash and clindamycin gel - Follow up precautions * Assessment & Plan Note - BRITTANY Mott - 02/17/2024 4:58 PM ESTAssociated Problem(s): Type 2 diabetes mellitus with hyperglycemia, with long-term current use of insulin ([facility]) A1c above goal Lab Results Component Value Date HGBA1C 11.7 (A) 11/14/2023 HGBA1C 12.9 (A) 03/20/2023 HGBA1C 12.8 (A) 07/18/2022 - Continue with Trulicity 1.5mg subcutaneous weekly - Increase to Tresiba 12 units nightly - F/up with CDTM appt on 02/18/24 as scheduled documented in this encounter Plan of Treatment Upcoming Encounters Date Type Department Care Team (Late st Contact Info) Description 03/18/2024 9:30 AM EST Medication Management [facility] MEDICINE [address] [place] [address] Kourtney Su, PharmD [address] [place] [address] 05/06/2024 10:00 AM EDT Office Visit [facility] MEDICINE [address] [place] [address] Matilde Calabrese MD [address] [place] [address] Scheduled Referrals Name Type Priority Associated Diagnoses Orde r Schedule Referral to [facility] Derm Skin Adult Outpatient Referral Routine Hidradenitis suppurativa Expected: 02/17/2024 (Approximate), Expires: 02/16/2025 documented as of this encounter Visit Diagnoses Diagnosis Carpal tunnel syndrome, unspecified laterality- Primary Type 2 diabetes mellitus with hyperglycemia, with long-term current use of insulin ([facility]) Hidradenitis suppurativa Hidradenitis Essential (primary) hypertension Unspecified essential hypertension documented in this encounter Additional Health Concerns Assessment Noted Time PHQ-9 Depression Total Score: 18 024 9:55 AM EST documented as of this encounter Care Teams Knitting Tester Relationship Specialty Start Date End Date Matilde Calabrese MD [address] [place] [address] PCP - General Internal Medicine 11/23/23 Kourtney Su PharmD [address] [place] [address] Pharmacist Internal Medicine 12/05/23 Cecily Pinedo RN [address] [place] [phone] Cannon Pinion AdjusterStrand Galvanizer 01/08/24 [facility] 01/09/24 documented as of this encounter
--- OUTSIDE RECORDS SUMMARY | 2024-03-12 17:25 | XMS_ITS | Encounter Summary ---
Author Organization [employer] Address [address] [facility] [address] 7t [place] [address] Care Team Providers Care Tobacco Stripper Name Role Phone Matilde Calabrese MD Primary Care Provide r Kourtney Su PharmD Unavailable [phone] Cecily Pinedo RN Unavailable [phone] Encounter Details Date Type Department Care Team (Late st Contact Info) Description 02/25/2024 Telephone [facility] MEDICINE [address] [place] [address] Cecily Pinedo RN [address] [place] [address] Social History Tobacco Use Types Packs/Day Years [...] Telephone Encounter - Cecily Pinedo RN - 02/25/2024 2:51 PM EST Patient referred to OPH on 01/07/24. CM called [facility] and informed patient was not referred to their office. CM unsure as to where patient was referred to? Please advise so that CM can assist with appt scheduling. Thank you. documented in this encounter Plan of Treatment Upcoming Encounters Date Type Department Care Team (Late st Contact Info) Description 03/18/2024 9:30 AM EST Medication Management [facility] MEDICINE [address] [place] [address] Kourtney Su, PharmD [address] [place] [address] 05/06/2024 10:00 AM EDT Office Visit [facility] MEDICINE [address] [place] [address] Matilde Calabrese MD [address] [place] [address] documented as of this encounter Visit Diagnoses Not on filedocumented in this encounter Additional Health Concerns Assessment Noted Time PHQ-9 Depression Total Score: 18 024 9:55 AM EST documented as of this encounter Care Teams Tobacco Stripper Relationship Specialty Start Date End Date Matilde Calabrese MD [address] [place] [address] PCP - General Internal Medicine 11/23/23 Kourtney Su PharmD [address] [place] [address] Pharmacist Internal Medicine 12/05/23 Cecily Pinedo RN [address] [place] [phone] Submarine Cable Equipment TechnicianDecorator Store 01/08/24 [facility] 01/09/24 documented as of this encounter
--- OUTSIDE RECORDS SUMMARY | 2024-03-12 17:25 | XMS_ITS | Encounter Summary ---
Author Organization [employer] Address 75 [facility] 7t [place] [address] Care Team Providers Care Second Steward Name Role Phone Matilde Calabrese MD Primary Care Provide r Kourtney Su PharmD Unavailable [phone] Cecily Pinedo RN Unavailable [phone] Reason for Visit * Reason Comments Care Coordination APPT REMINDER Encounter Details Date Type Department Care Team (Latest Contact Info) Description 02/14/2024 Patient Outreach [facility] [place] [facility] MEDICINE [address] [place] [address] Matilde Calabrese MD [address] [place] [address] Care Coordination (APPT REMINDER) Social History Tobacco Use Types Packs/Day Years [...] encounter Progress Notes * Yue Eubanks - 02/14/2024 10:01 AM EST CHW Yue Eubanks placed outbound call to patient. No answer at this time. LVM introducing [facility], reminding patient of appointment on 02/15/24 @10AM in CHCwith WIRE TRANSFER CLERK Ariel. Requested call back to or , as well as for any additional questions or concerns. (Patient has PT1 scheduled for molded goods spot picker at 930am [facility] with details.) documented in this encounter Plan of Treatment Upcoming Encounters Date Type Department Care Team (Late st Contact Info) Description 03/18/2024 9:30 AM EST Medication Management [facility] MEDICINE [address] [place] [address] Kourtney Su, PharmD [address] [place], [place] [phone] 05/06/2024 10:00 AM EDT Office Visit [facility] MEDICINE [address] [place] [address] Matilde Calabrese MD [address] [place], [place] [phone] documented as of this encounter Visit Diagnoses Not on filedocumented in this encounter Additional Health Concerns Assessment Noted Time PHQ-9 Depression Total Score: 18 024 9:55 AM EST documented as of this encounter Care Teams Second Steward Relationship Specialty Start Date End Date Matilde Calabrese MD [address] [place], [place] [phone] PCP - General Internal Medicine 11/23/23 Kourtney Su PharmD [address] [place] [phone] Pharmacist Internal Medicine 12/05/23 Cecily Pinedo, ROSA [address] [place] [address] Director Of Music TherapyCloth Printing Inspector 01/08/24 [facility] 01/09/24 documented as of this encounter
--- OUTSIDE RECORDS SUMMARY | 2024-03-12 17:25 | XMS_ITS | Encounter Summary ---
Author Organization [employer] Address [address] [facility] [address] 7t [place] [address] Care Team Providers Care Semiconductor Packages Leak Tester Name Role Phone Matilde Calabrese MD Primary Care Provide r Kourtney Su PharmD Unavailable [phone] Cecily Pinedo RN Unavailable [phone] Reason for Visit * Reason Onset Date Comments Care Management 02/25/2024 C3CM- f/u call Encounter Details Date Type Department Care Team ([facility] st Contact Info) Description 02/25/2024 Telephone [facility] MEDICINE [address] [place] [address] Cecily Pinedo, RN [address] [place] [address] Care Management (C3CM- f/u call) Social History [...] Encounter - Cecily Pinedo RN - 02/25/2024 2:25 PM EST KENDRA Pinedo RN placed outbound call to patient. Patient's name, and address confirmed. Patient states is doing well with no recent illnesses or emergency room visits. Patient seen by Luis Enrique on 02/15/24. He states he was given Rx wrist splints following the visit. His dose of Trulicity was also increased to 3mg weekly. Per patient, last dose taken was on W of last week. He is due for the next dose tomorrow. Patient reports experiencing abd pain, cramping, bloating, and constipation since starting the increased dose. He states the symptoms are usually present in the mornings. Patient reports last BM was yesterday morning. He states the stool was hard and looked like pellets. Per patient, no black stools or blood noted with BM. He states he has increased intake of vegetablesand yogurt which has helped with passing stools. Patient denies any abd pain, fever, chills, nausea, vomiting, or other symptoms now. Patient is scheduled for CDTM tomorrow and states he plans on discussing this during the office visit. Per patient, seen by general surgery on 02/21 as scheduled. He states he has not yet removed the dressing as he lost the wound care instructions and was not sure what to do. CM reviewed the instructions with patient during the call and he verbalizes understanding and denies any questions/concerns at this time. [facility] is [facility] and will be taking the bus to the scheduled visit. He declines PT1 services at thistime. Per patient, blood sugar readings have improved since he was seen by general surgery. He states his sugars have been ranging in the 220s. His current reading is 208. He reports taking all AM meds this morning. He states his BP has continued to be elevated. He reports LA BP reading of 140/105 P 87 now. He states he is due for his PM dose of BP med soon. Patient reports drinking a lot of water throughout the day. He states he is no longer drinking coffee. Per patient, noted the coffee was making GERD symptoms worse. He states he forgot that he is being prescribed omeprazole but confirms that he does have Rx and will take as directed. Will f/u if no improvement. Patient is aware of his scheduled visit with ENT on 02/27 and denies any barriers to attending that visit. In regards to the derm referral that was recently placed for eval of hidradenitis suppurativa, patient states he does not actively have symptoms and will wait until he is contacted with an appt. He states he did receive the medications that were prescribed to him and will use as needed. Patient is requesting a referralto Allergy for testing. He states he was following an office on [address] prior to the pandemic. Per patient, completed a skin test and had a possible reaction to saline?. He states he would like to f jami up on this but will wait until PCP returns to make a request for a new referral. CM will alsof/u on the referral to Ophthalmology to confirm where the patient was referred to. Patient confirmsthat he is still receiving VNA services. He states the nurse will usually see him daily around 4pm for medicinal plant picker. Patient also requesting assistance with housing. Patient is currently unemployed. He states he called the [employer] security office recently but call was dropped. Patient intends on reaching out to the office again to inquire on status. CHW will contact patient to assist with resources. No further questions or concerns. CM reinforced direct contact information or CHW for any additional questions or concerns. Education provided on [facility]In [facility] located in [facility]. Patient provided with after-hours line for [facility], , which offer night time triage service and option to transfer to antichecking iron worker provider if needed. Patient verbalizes understanding, and able to repeat back to remote mortgage underwriter. A follow up call will be placed within 10 days, patientagrees with plan. documented in this encounter Plan of Treatment Upcoming Encounters Date Type Department Care Team ([facility] st Contact Info) Description 03/18/2024 9:30 AM EST Medication Management [facility] MEDICINE [address] [place] [address] [phone] Kourtney Su PharmD [address] [place] [address] 05/06/2024 10:00 AM EDT Office Visit [facility] MEDICINE [address] [place] [address] [phone] Matilde Calabrese MD [address] [place] [address] [phone] documented as of this encounter Visit Diagnoses Not on filedocumented in this encounter Additional Health Concerns Assessment Noted Time PHQ-9 Depression Total Score: 18 024 9:55 AM EST documented as of this encounter Care Teams Semiconductor Packages Leak Tester Relationship Specialty Start Date End Date Matilde Calabrese MD [address] [place] [address] [phone] PCP - General Internal Medicine 11/23/23 Kourtney Su PharmD [address] [place] [phone] Pharmacist Internal Medicine 12/05/23 Cecily Pinedo RN [address] [place] [phone] Computer Programming ProfessorRing Sewer 01/08/24 [facility] 01/09/24 documented as of this encounter
--- OUTSIDE RECORDS SUMMARY | 2024-03-12 17:25 | XMS_ITS | Encounter Summary ---
Author Organization [employer] Address [address] [facility] [address] [facility] [address] [place] [address] Care Team Providers Care Varnish Melter Name Role Phone Matilde Calabrees MD Primary Care Provide r Kourtney Su PharmD Unavailable [phone] Cecily Pinedo RN Unavailable [phone] Encounter Details Date Type Department Care Team (Latest Contact Info) Description 02/19/2024 Travel Social History Tobacco Use Types Packs/Day [...] Description 03/18/2024 9:30 AM EST Medication Management [facility] [address] [place] [address] Kourtney Su PharmD [address] [place] [address] 15[address] 05/06/2024 10:00 AM EDT Office Visit [facility] [address] [place] [phone] Matilde Calabrese MD [address] [place] [address] 75[address] documented as of this encounter Visit Diagnoses Not on filedocumented in this encounter Additional Health Concerns Assessment Noted Time PHQ-9 Depression Total Score: 18 024 9:55 AM EST documented as of this encounter Care Teams Varnish Melter Relationship Specialty Start Date End Date Matilde Calabrese MD [address] [place] [phone] PCP - General Internal Medicine 11/23/23 Kourtney Su, PharmD [address] [place] [phone] Pharmacist Internal Medicine 12/05/23 Cecily Pinedo RN [address] [place] [address] Supply Chain InternTitle Investigator 01/08/24 [facility] 01/09/24 documented as of this encounter
--- OUTSIDE RECORDS SUMMARY | 2024-03-12 17:25 | XMS_ITS | Encounter Summary ---
Author Organization [employer] Address [address] [facility] [address] [place] [address] Care Team Providers Care Funeral Arrangement Director Name Role Phone Matilde Calabrese MD Primary Care Provide r Kourtney Su PharmD Unavailable [phone] Cecily Pinedo RN Unavailable Encounter Details Date Type Department Care Team (Late st Contact Info) Description 02/18/2024 Orders Only GENERIC EXTERNAL DATA DEPARTMENT Provider, Generic External Data Social History Tobacco Use Types Packs/Day Years [...] Management [facility] [address] [place] [address] Kourtney Su, PharmD [address] [place] [address] 22369 05/06/2024 10:00 AM EDT Office Visit [facility] [address] [place] [phone] Matilde Calabrese MD [address] [place] [address] documented as of this encounter Procedures Procedure Name Priority Date/Time Associated Diagnosis Comments ALBUMIN, RANDOM URINE W/CREATININE Routine 02/18/2024 11:22 AM EST PROTEINASE-3 ANTIBODY Routine 02/18/2024 9:45 AM EST MYELOPEROXIDASE ANTIBODY (MPO) Routine 02/18/2024 9:45 AM EST PHOSPHOLIPASE A2 RECEPTOR (PLA2R) AB PANEL Routine 02/18/2024 9:45 AM EST HEPATITIS C AB W/REFL TO HCV RNA, QN, PCR Routine 02/18/2024 9:45 AM EST GLOMERULAR BASEMENT MEMBRANE ANTIBODY (IGG) Routine 02/18/2024 9:45 AM EST DNA (DS) ANTIBODY Routine 02/18/2024 9:4 5 AM EST HEPATITIS B SURFACE ANTIGEN, EIA Routine 02/18/2024 9:45 AM EST HEPATITIS B CORE AB TOTAL Routine 02/18/2024 9:45 AM EST IMMUNOFIXATION, SERUM Routine 02/18/2024 9:45 AM EST COMPLEMENT COMPONENT C3C Routine 02/18/2024 9:45 AM EST COMPLEMENT COMPONENT C4C Routine 02/18/2024 9:45 AM EST UREA NITROGEN (BUN) Routine 02/18/2024 9 :45 AM EST CALCIUM Routine 02/18/2024 9:45 AM EST HEPATIC FUNCTION PANEL Routine 9:45 AM EST LIPID PANEL, STANDARD Routine 02/18/2024 9:45 AM EST BASIC METABOLIC PANEL Routine 02/18/2024 9:45 AM EST documented in this encounter Results * Albumin, Random Urine W/Creatinine (02/18/2024 11:22 AM EST) Creatinine, Urine 209.68 mg/dL [facility] Microalbumin Urine 52.0 mg/L [facility] Microalbum Creatinine Ratio Ur 24.7 <30 ug/mg cr [facility] Comment:Albumin/Creatinine R atio Reference Ranges: Normal: < 30 ug/mg creatinine Microalbuminuria: 30 - 300 ug/mg creatinineClinical Albuminuria: > 300 ug/mg creatinine 02/18/2024 11:2 2 AM EST 02/18/2024 1:18 PM EST us Matilde Hudson MD LAB URINE ORDERABLES Final Result Performing Organization Address [facility] de Phone Number [facility] [address] [place] [phone] * Phospholipase A2 Receptor (PLA2R) Antibody Panel (02/18/2024 9:45 AM EST) Phospholipase A2 Receptor (PLA2R) Ab, PRACHI <4 RU/mL [facility] Comment:Reference Range: <14 : NEGATIVE 14-19: BORDERLINE >19: POSITIVE Phospholipase A2 Receptor (PLA2R) Ab, IFA NEGATIVE NEGATIVE [facility] Comment:THIS TEST WAS PERFOR MED AT:[employer] [id number] [facility] [place] [address]JRBCDGRECIA THORPE MD,PHD,LINDA 02/18/2024 9:45 AM EST 02/18/2024 11:11 AM EST Generic External Data Provider LAB BLOOD ORDERAB LES Final Result Performing Organization Address [facility] de Phone Number [facility] [address] [place] [phone] * Proteinase-3 Antibody (02/18/2024 9:45 AM EST) Proteinase-3 Antibody <1.0 AI [facility] Comment:Value Interpretatio n ----- <1.0 No Antibody Detected > or = 1.0 Antibody DetectedAutoantibodies to proteinase-3 (RI-3) are accepted ascharacteristic for granulomatosis with polyangiitis(GPA, Brianna's), and are detectable in 95% of thehistologically proven cases. The cytoplasmic IFApattern, (c-ANCA), is based largely on autoantibody toPR-3 which serves as the primary antigen.These autoantibodies are present in active disease.THIS TEST WAS PERFORMED AT:[employer] [address] [place] [address]YQZSHJACOB OWEN MD 02/18/2024 9:45 AM EST 02/18/2024 11:11 AM EST Generic External Data Provider LAB BLOOD ORDERAB LES Final Result Performing Organization Address City/[facility]/ZIP Co de Phone Number [facility] [address] [place] [phone] * Myeloperoxidase Antibody (MPO) (02/18/2024 9:45 AM EST) Myeloperoxidase Antibody <1.0 [facility] Comment:Value Interpretation ----- <1.0 No Antibody Detected > or = 1.0 Antibody DetectedAutoantibodies to myeloperoxidase (MPO) are commonlyassociated with the following small-vesselvasculitides: microscopic polyangiitis,polyarteritis nodosa, Churg-Rafi syndrome,necrotizing and crescentic glomerulonephritis andoccasionally granulomatosis with polyangiitis(GPA, Brianna's). The perinuclear IFA pattern,(p-ANCA) is based largely on autoantibody tomyeloperoxidase which serves as the primary antigen.These autoantibodies are present in active disease.THIS TEST WAS PERFORMED AT:[employer] [address] [address]JACOB OWEN MD 02/18/2024 9:45 AM EST 02/18/2024 11:11 AM EST Generic External Data Provider LAB BLOOD ORDERAB LES Final Result Performing Organization Address City/[facility]/ZIP Co de Phone Number [facility] [address] [place] [phone] * Glomerular Basement Membrane Antibody (IgG) (02/18/2024 9:45 AM EST) Glomerular Basement Memebrane Antibody (IgG) <1.0 AI [facility] Comment:Value Interpretation ----- <1.0 No Antibody Detected > or = 1.0 Antibody DetectedTHIS TEST WAS PERFORMED AT:[employer] [address] [id number] OWEN MD 02/18/2024 9:45 AM EST 02/18/2024 11:11 AM EST Generic External Data Provider LAB BLOOD ORDERAB LES Final Result Performing Organization Address [facility] Co de Phone Number [facility] [address] [place] [phone] * DNA (ds) Antibody (02/18/2024 9:45 AM EST) Anti DNA DS Antibody 1 IU/mL [facility] Comment:IU/mL Interpretation < or = 4 Negative 5-9 Indeterminate > or = 10 PositiveTHIS TEST WAS PERFORMED AT:[employer] [address] [id number] OWEN MD 02/18/2024 9:45 AM EST 02/18/2024 11:11 AM EST [employer] External Data Provider LAB BLOOD ORDERAB LES Final Result Performing Organization Address [facility] de Phone Number [facility] [address] [place] [phone] * (ABNORMAL) Immunofixation, Serum (02/18/2024 9:45 AM EST) IMMUNOGLOBULIN G 1358 600 - 1640 mg/dL [facility] IMMUNOGLOBULIN A 518(A) 47 - 310 mg/dL [facility] Immunoglobulin M 57 50 - 300 mg/dL [facility] Comment:THIS TEST WAS PERFOR MED AT:[employer] [address] [phone] OWEN MD Immunofixation Result SEE NOTE [facility] Comment:Normal pattern. No m onoclonal proteins detected. 02/18/2024 9:45 AM EST 02/18/2024 11:11 AM EST us Generic External Data Provider LAB BLOOD ORDERAB LES Final Result Performing Organization Address [facility]/ZIP Co de Phone Number [facility] [address] [place] [phone] * Complement Component C4c (02/18/2024 9:45 AM EST) Complement C4 20 15 - 53 mg/dL [facility] Comment:THIS TEST WAS PERFOR MED AT:[employer] [place] [phone] OWEN MD 02/18/2024 9:45 AM EST 02/18/2024 11:11 AM EST us Generic External Data Provider LAB BLOOD ORDERAB LES Final Result Performing Organization Address [facility] de Phone Number [facility] [address] [place] [phone] * Complement Component C3c (02/18/2024 9:45 AM EST) Complement C3 166 82 - 185 mg/dL [facility] Comment:THIS TEST WAS PERFOR MED AT:[employer] [address] [phone] OWEN MD 02/18/2024 9:45 AM EST 02/18/2024 11:11 AM EST us Generic External Data Provider LAB BLOOD ORDERAB LES Final Result Performing Organization Address [facility] Co de Phone Number [facility] [address] [place] [address] [phone] * Hepatitis B surface antigen, EIA (02/18/2024 9:45 AM EST) Hepatitis B Surface Ag Negative Negative [facility] 02/18/2024 9:45 AM EST 02/18/2024 11:12 AM EST Generic External Data Provider LAB BLOOD ORDERAB LES Final Result Performing Organization Address [facility] de Phone Number [facility] [address] [place] [phone] * Hepatitis C Antibody with Reflex to HCV, RNA, Quantitative, Real-Time PCR (02/18/2024 9:45 AM EST) Hepatitis C Antibody Nonreactive Nonreactive [facility] Comment:Antibodies to HCV no t detected; does not exclude early acuteHCV infection. 02/18/2024 9:45 AM EST 02/18/2024 11:12 AM EST Generic External Data Provider LAB BLOOD ORDERAB LES Final Result Performing Organization Address [facility] de Phone Number [facility] [address] [place] [address] [phone] * Hepatitis B Core Antibody, Total (02/18/2024 9:45 AM EST) Hepatitis B Core Antibody Nonreactive Nonreactive [facility] 02/18/2024 9:45 AM EST 02/18/2024 11:12 AM EST Generic External Data Provider LAB BLOOD ORDERAB LES Final Result Performing Organization Address [facility] de Phone Number [facility] [address] [place] [address] [phone] * (ABNORMAL) Lipid Panel, Standard (02/18/2024 9:45 AM EST) Triglycerides 319(H) <150 mg/dL [facility] Comment:Slight Lipemia.Aury able Triglyceride: less than 150 mg/dLBorderline High Triglyceride 150-199 mg/dLHigh Triglyceride: 200-499 mg/dLVery High Triglyceride: greater than or equal to 5OO mg/dL Cholesterol 176 <200 mg/dL [facility] Comment:Desirable Cholestero l: less than 200 mg/dLBorderline High Cholesterol: 200-239 mg/dLHigh Cholesterol: greater than 239 mg/dL LDL Cholesterol Calculated 75 <100 mg/dL [facility] Comment:Desirable LDL: less than 100 mg/dLNear Optimal/Above Optimal LDL: 110- 129 mg/dLBorderline High LDL: 130-159 mg/dLHigh LDL: 160-189 mg/dLVery High LDL: greater than or equal to 190 mg/dL HDL Cholesterol 38(L) >40 mg/dL [facility] Comment:Desirable HDL: great er than 40 mg/dL Note: This HDL assay may give artificially low results in patients with liver disease. 02/18/2024 9:45 AM EST 02/18/2024 11:12 AM EST Matilde Hudson MD LAB BLOOD ORDERABLES Final Result [facility] [address] [place] [phone] * (ABNORMAL) Basic Metabolic Panel (02/18/2024 9:45 AM EST) Sodium 133(L) 135 - 145 mmol/L [facility] Potassium 4.4 3.3 - 5.1 mmol/L [facility] Chloride 100 96 - 108 mmol/L [facility] Carbon Dioxide 23 22 - 29 mmol/L [facility] Anion Gap 14 12 - 20 [facility] Urea Nitrogen (BUN) 14 9 - 16 mg/dL [facility] Creatinine, Serum 1.15 0.5 - 1.4 mg/dL [facility] Estimated Glomerular Filt Rate >60 [facility] Comment:Chronic Kidney Disea se: Estimated GFR < 60 mL/min/1.12h9Mhehnw Kidney Disease: Estimated GFR < 15 mL/min/1.73m2 Glucose 464(HH) 60 - 115 mg/dL [facility] Comment:Critical value for G LAYO: Results called to and read backby: ANTONINO Rodriguez Person calling: HEATHER Date: 02/18/24 Time:1140 Calcium 9.8 8.4 - 10.2 mg/dL [facility] 02/18/2024 9:45 AM EST 02/18/2024 11:12 AM EST us Matilde Hudson MD LAB BLOOD ORDERABLES Final Result Performing Organization Address [facility] Co de Phone Number [facility] [address] [place] [address] [phone] * (ABNORMAL) Hepatic Function Panel (02/18/2024 9:45 AM EST) Bilirubin, Total 0.4 0.0 - 1.0 mg/dL [facility] Bilirubin, Direct 0.1 0.0 - 0.5 mg/dL [facility] Aspartate Amino Transferase 25 5 - 37 U/L [facility] Alanine Aminotransferase 39 0 - 40 U/L [facility] Total Protein 8.7(H) 6.5 - 8.0 g/dL [facility] Albumin Level 4.8 3.5 - 5.0 g/dL [facility] Alkaline Phosphatase 113 39 - 117 U/L [facility] 02/18/2024 9:45 AM EST 02/18/2024 11:12 AM EST us Matilde Hudson MD LAB BLOOD ORDERABLES Final Result Performing Organization Address [facility] Co de Phone Number [facility] [address] [place] [address] [phone] * Calcium (02/18/2024 9:45 AM EST) Calcium 9.8 8.4 - 10.2 mg/dL [facility] 02/18/2024 9:45 AM EST 02/18/2024 11:12 AM EST us Generic External Data Provider LAB BLOOD ORDERAB LES Final Result Performing Organization Address City/[facility] Co de Phone Number [facility] [address] [place] [phone] * BUN (Blood Urea Nitrogen) (02/18/2024 9:45 AM EST) Urea Nitrogen (BUN) 14 9 - 16 mg/dL [facility] 02/18/2024 9:45 AM EST 02/18/2024 11:12 AM EST us Generic External Data Provider LAB BLOOD ORDERAB LES Final Result Performing Organization Address [facility] de Phone Number [facility] [address] [place] [phone] documented in this encounter Visit Diagnoses Not on filedocumented in this encounter Additional Health Concerns Assessment Noted Time PHQ-9 Depression Total Score: 18 024 9:55 AM EST documented as of this encounter Care Teams Funeral Arrangement Director Relationship Specialty Start Date End Date Matilde Calabrese MD [address] [place] [address] PCP - General Internal Medicine 11/23/23 Kourtney Su PharmD [address] [place] [address] Pharmacist Internal Medicine 12/05/23 Cecily Pinedo RN [address] [place] [phone] Classics ProfessorServer Software Engineer 01/08/24 [facility] 01/09/24 documented as of this encounter
--- OUTSIDE RECORDS SUMMARY | 2024-03-12 17:25 | XMS_ITS | Encounter Summary ---
Author Organization [employer] Address [address] [facility] 7t [place] [address] Care Team Providers Care Caterers Helper Name Role Phone Matilde Calabrese MD Primary Care Provide r Kourtney Su PharmD Unavailable [phone]- [phone] Cecily Pinedo RN Unavailable [phone] Encounter Details Date Type Department Care Team (Late st Contact Info) Description 01/31/2024 Orders Only [facility] [address] [place] [address] ProviderAri MD Social History Tobacco Use Types Packs/Day Years [...] is your housing situation today? I have sandyvern amaro 04/27/[address] you [...] AM EST Medication Management [facility] [address] [place] [phone] Kourtney Su, PharmD [address] [place] [address] 28[address] 05/06/2024 10:00 AM EDT Office Visit [facility] [address] [place] [phone] Matilde Calabrese MD [address] [place] [address] [phone] documented as of this encounter Procedures Procedure Name Priority Date/Time Associated Diagnosis Comments CT SOFT TISSUE NECK W CONTRAST Routine 01/31/2024 9:58 AM EST documented in this encounter Results * CT SOFT TISSUE NECK W CONTRAST (01/31/2024 9:58 AM EST) Anatomical Region Laterality Modality Computed Tomogra phy us Historical Provider MD [facility]AO CT PROCEDURES Final R esult documented in this encounter Visit Diagnoses Not on filedocumented in this encounter Additional Health Concerns Assessment Noted Time PHQ-9 Depression Total Score: 18 024 9:55 AM EST documented as of this encounter Care Teams Caterers Helper Relationship Specialty Start Date End Date Matilde Calabrese MD [address] [place] [address] PCP - General Internal Medicine 11/23/23 Kourtney Su PharmD [address] [place] [address] Pharmacist Internal Medicine 12/05/23 Cecily Pinedo RN [address] [place] [phone] C[employer] MarkerChildrens Club Attendant 01/08/24 [facility] 01/09/24 documented as of this encounter
--- OUTSIDE RECORDS SUMMARY | 2024-03-12 17:25 | XMS_ITS | Encounter Summary ---
Author Organization [employer] Address [address] [facility] 7t [place] [address] Care Team Providers Care Machine Cutter Name Role Phone Matilde Calabrese MD Primary Care Provide r Kourtney Su PharmD Unavailable [phone]- [phone] Cecily Pinedo RN Unavailable [phone] Encounter Details Date Type Department Care Team (Late st Contact Info) Description 02/07/2024 Orders Only [facility] [address] [place] [address] ProviderAri MD Social History Tobacco Use Types [...] 9:30 AM EST Medication Management [facility] [address] [place] [phone] Kourtney Su, PharmD [address] [place] [phone] 05/06/2024 10:00 AM EDT Office Visit [facility] [address] [place] [phone] Matilde Calabrese MD [address] [place] [phone] documented as of this encounter Procedures Procedure Name Priority Date/Time Associated Diagnosis Comments CT ABDOMEN PELVIS WO CONTRAST Routine 02/06/2024 12:43 PM EST documented in this encounter Results * CT Abdomen Pelvis w/o Contrast (02/06/2024 12:43 PM EST) Anatomical Region Laterality Modality Body, Pelvis, Abdomen Computed T omography us Historical Provider MD CHAO CT PROCEDURES Final R esult documented in this encounter Visit Diagnoses Not on filedocumented in this encounter Additional Health Concerns Assessment Noted Time PHQ-9 Depression Total Score: 18 024 9:55 AM EST documented as of this encounter Care Teams Machine Cutter Relationship Specialty Start Date End Date Matilde Calabrese MD [address] [place] [address] PCP - General Internal Medicine 11/23/23 Kourtney Su PharmD [address] [place] [address] Pharmacist Internal Medicine 12/05/23 Cecily Pinedo RN [address] [place] [phone] Juice Bar Team MemberMud Engineer 01/08/24 [facility] 01/09/24 documented as of this encounter
--- OUTSIDE RECORDS SUMMARY | 2024-03-12 17:25 | XMS_ITS | Encounter Summary ---
Author Organization [employer] Address [address] [facility] [address] [place] [address] Care Team Providers Care Plate Slitter And Inspector Name Role Phone Matilde Calabrese MD Primary Care Provide r Kourtney Su PharmD Unavailable [phone] Cecily Pinedo RN Unavailable [phone] Encounter Details Date Type Department Care Team (Latest Contact Info) Description 02/15/2024 Travel Social History Tobacco Use Types Packs/Day [...] 9:30 AM EST Medication Management [facility] [address] [place] [phone] Kourtney Su PharmD [address] [place] [phone] 05/06/2024 10:00 AM EDT Office Visit [facility] [address] [place] [phone] Matilde Calabrese MD [address] [place] [phone] documented as of this encounter Visit Diagnoses Not on filedocumented in this encounter Additional Health Concerns Assessment Noted Time PHQ-9 Depression Total Score: 18 024 9:55 AM EST documented as of this encounter Care Teams Plate Slitter And Inspector Relationship Specialty Start Date End Date Matilde Calabrese MD [address] [place] [phone] PCP - General Internal Medicine 11/23/23 Kourtney Su, PharmD [address] [place] [address] 34414 Pharmacist Internal Medicine 12/05/23 Cecily Pinedo RN [address] [place] [phone] Airline Pilot Flight InstructorOrnamental Ironworking Supervisor 01/08/24 [facility] 01/09/24 documented as of this encounter
--- OUTSIDE RECORDS SUMMARY | 2024-03-12 17:25 | XMS_ITS | Encounter Summary ---
Author Organization [employer] Address [address] [facility] [address]t [place] [address] Care Team Providers Care Stenographer Print Shop Name Role Phone Matilde Calabrese MD Primary Care Provide r Kourtney Su PharmD Unavailable [phone] Cecily Pinedo RN Unavailable [phone] Reason for Visit * Reason Onset Date Comments Care Management 02/11/2024 C3CM- f/u call Encounter Details Date Type Department Care Team ([facility] st Contact Info) Description 02/11/2024 Telephone [facility] MEDICINE [address] [place] [address] Cecily Pinedo, RN [address] [place] [address] Care Management (C3CM- f/u call) Social History [...] Telephone Encounter - Cecily Pinedo RN - 02/11/2024 2:11 PM EST CM Cecily Pinedo RN and CHW Yue Eubanks placed outbound call to patient. Patient's name, and address confirmed. Patient states is doing well today. Patient seen at [facility] ED 02/03 and 02/06/24 for cellulitis of the neck and rhinovirus. Patient reports doing better since ED visits. He states hestill has a small lump on the side of the neck but states it has gone down in size. He denies any redness or warmth to site. He denies fever, chills, nausea, vomiting or other symptoms. Per patient, taking the antibiotics as prescribed. Patient is aware of the ED f/u that is scheduled on 02/15/24 at 10:00am. CHW will assist with PT1. Patient is scheduled to f/u with General Surgery on 02/22/24. He is aware that PT1 is scheduled to pick him up at 10:00am. Patient states he is also scheduled to seeAudiology on 02/26/24 at 3:30pm. CHW will f/u with PT1. Patient states he is being seen by his visiting nurse on a daily basis. He states he is keeping a log of both his BP readings and glucose readings. He reports BP readings as follows 02/03/24: 157/104 P 78, 02/03: 144/92 P 82, 02/04: 127/94 P 76,02/06: 134/95 P 82, 02/07: 128/87 P 91, and 02/08: 143/99 P 85. He reports glucose readings as follows: 02/02: 301 AM and 304 PM, 02/03: 331 AM and 297 PM, 02/04: 302 AM and 254 PM, 02/05: 357 AM mou696 PM, 02/06: 277 AM and 325 PM, 02/08: 278 AM and 244 PM, 02/09: 322 AM and 256 PM, and 02/10: 279 AM and 305 PM. Per patient, AM readings are sometimes fasting but not always. Patient states he has eliminated intake of soda and is cutting down on sugars and carbs. Per patient, taking all meds asdirected. CM reminded patient of his scheduled visit with Dr. Agee on 03/11/24 at 9:00am. CHW will assist with PT1. Patient is requesting assistance with re establishing care with [facility]mology. Patient states he believes he has been receiving calls from [facility] Optometry but has not been able to get in touch with the office to schedule an appt. CM will assist. CM will also send message out to [employer] teach to outreach patient and assist with rescheduling his missed visit. CM updated patient on their upcoming graduation of the program and of CM's wish to place a referralto the LTSS program. Patient given information on the program and is agreeable to a referral being placed. CM will place referral to LTSS in preparation for graduation. CM will follow up with programin order to ensure a warm hand-off. No further questions or concerns. CM reinforced direct contact information or CHW for any additional questions or concerns. Education provided on [facility] located in [facility]. Patient provided with after-hours line for [facility], , which offer night time triage service and option to transfer to photonics engineering technician provider if needed. Patient verbalizes understanding, and able to repeat back to news writer. A follow up call will be placed within 10 days, patientagrees with plan. CM noted patient last seen by Nephrology on 03/2023. CM called the office. Informed patient missed f/u visit in April 2023. Patient is scheduled for next available visit on 03/28/24 at 12:15pm at [address] [place] [address] [address]. CM called [facility] Optometry. Informed they have not attempted to contact patient. Also, they have not received a referral as the referral was made out to Ophthalmology and not Optometry. CM will f/u withreferrals dept. documented in this encounter Plan of Treatment Upcoming Encounters Date Type Department Care Team (Late st Contact Info) Description 03/18/2024 9:30 AM EST Medication Management [facility] MEDICINE [address] [place] [address] Kourtney Su PharmD [address] [place] [address] 05/06/2024 10:00 AM EDT Office Visit [facility] MEDICINE [address] [place] [address] Matilde Calabrese MD [address] [place] [address] documented as of this encounter Visit Diagnoses Not on filedocumented in this encounter Additional Health Concerns Assessment Noted Time PHQ-9 Depression Total Score: 18 024 9:55 AM EST documented as of this encounter Care Teams Stenographer Print Shop Relationship Specialty Start Date End Date Matilde Calabrese MD [address] [place] [address] PCP - General Internal Medicine 11/23/23 Kourtney Su PharmD [address] [place] [address] Pharmacist Internal Medicine 12/05/23 Cecily Pinedo RN [address] [place] [address] Ornamental Metal Erector ApprenticeCoil Builder 01/08/24 [facility] 01/09/24 documented as of this encounter
--- OUTSIDE RECORDS SUMMARY | 2024-03-12 17:25 | XMS_ITS | Encounter Summary ---
Author Organization [employer] Address [address] [facility] [address] 7t [place] [address] Care Team Providers Care Collections Agent Name Role Phone Matilde Calabrese MD Primary Care Provide r Kourtney Su PharmD Unavailable [phone] Cecily Pinedo RN Unavailable [phone] Encounter Details Date Type Department Care Team (Latest Contact Info) Description 02/18/2024 Travel Social History Tobacco Use Types Packs/Day [...] Medication Management [facility] MEDICINE [address] [place] [address] Kourtney Su PharmD [address] [place] [address] 05/06/2024 10:00 AM EDT Office Visit [facility] MEDICINE [address] [place] [address] Matilde Calabrese MD [address] [place] [address] documented as of this encounter Visit Diagnoses Not on filedocumented in this encounter Additional Health Concerns Assessment Noted Time PHQ-9 Depression Total Score: 18 024 9:55 AM EST documented as of this encounter Care Teams Collections Agent Relationship Specialty Start Date End Date Matilde Calabrese MD [address] [place] [address] PCP - General Internal Medicine 11/23/23 Kourtney Su, PharmD [address] [place] [address] Pharmacist Internal Medicine 12/05/23 Cecily Pinedo RN [address] [place] [address] Four Slide Machine SetterBusiness Analytics Director 01/08/24 [facility] 01/09/24 documented as of this encounter
--- OUTSIDE RECORDS SUMMARY | 2024-03-12 17:25 | XMS_ITS | Encounter Summary ---
Author Organization [employer] Address 75 [facility] 7t [place] [address] Care Team Providers Care Physical Scientist Name Role Phone Matilde Calabrese MD Primary Care Provide r Kourtney Su PharmD Unavailable [phone] Cecily Pinedo RN Unavailable [phone] Reason for Visit * Reason Comments Care Coordination Appt reminders Encounter Details Date Type Department Care Team (Latest Contact Info) Description 02/18/2024 Patient Outreach [facility] MEDICINE [address] [place] [address] Matilde Calabrese MD [address] [place] [address] Care Coordination (Appt reminders) Social History Tobacco Use Types Packs/Day [...] encounter Progress Notes * Yue Eubanks - 02/18/2024 10:29 AM EST CHW Yue Eubanks placed call to patient to remind of appt on 02/22/24 1030am for General surgery,patient does not want PT1 states he will take the bus to appt. CHW also sent patient a text messagethrough [employer] for reminder. documented in this encounter Plan of Treatment Upcoming Encounters Date Type Department Care Team (Late st Contact Info) Description 03/18/2024 9:30 AM EST Medication Management [facility] MEDICINE [address] [place], [place] [phone] Kourtney Su, PharmD [address] [place] [address] 05/06/2024 10:00 AM EDT Office Visit [facility] MEDICINE [address] [place], [place] [phone] Matilde Calabrese MD [address] [place] [address] documented as of this encounter Visit Diagnoses Not on filedocumented in this encounter Additional Health Concerns Assessment Noted Time PHQ-9 Depression Total Score: 18 024 9:55 AM EST documented as of this encounter Care Teams Physical Scientist Relationship Specialty Start Date End Date Matilde Calabrese MD [address] [place] [address] PCP - General Internal Medicine 11/23/23 Kourtney Su PharmD [address] [place] [address] Pharmacist Internal Medicine 12/05/23 Cecily Pinedo RN [address] [place] [address] Firearms Model MakerMachine Set Up Technician 01/08/24 [facility] 01/09/24 documented as of this encounter
--- OUTSIDE RECORDS SUMMARY | 2024-03-12 17:25 | XMS_ITS | Encounter Summary ---
Author Organization [employer] Address [address] [facility] [address] 7t [place] [address] Care Team Providers Care Balancing Machine Set Up Worker Name Role Phone Matilde Calabrese MD Primary Care Provide r Kourtney Su PharmD Unavailable [phone] Cecily Pinedo RN Unavailable [phone] Encounter Details Date Type Department Care Team (Late st Contact Info) Description 02/22/2024 Telephone [facility] MEDICINE [address] [place], [place] [phone] Kourtney Su, PharmD [address] [place] [address] Social History Tobacco Use Types Packs/Day Years [...] Telephone Encounter - Kourtney Su PharmD - 02/22/2024 10:11 AM EST [facility] outreached patient for BG check following recent visit for hyperglycemia 02/19/24; patientreported improvement in BG following [facility] visit and that for the past few days BG have been around the 200s and most recent CGM scan was 230mg/dL. Patient stated understanding of upcoming [facility] appointment 02/25/23. documented in this encounter Plan of Treatment Upcoming Encounters Date Type Department Care Team (Late st Contact Info) Description 03/18/2024 9:30 AM EST Medication Management [facility] MEDICINE [address] [place] [address] Kourtney Su PharmD [address] [place] [address] 05/06/2024 10:00 AM EDT Office Visit [facility] MEDICINE [address] [place] [address] Matilde Calabrese MD [address] [place] [address] documented as of this encounter Visit Diagnoses Not on filedocumented in this encounter Additional Health Concerns Assessment Noted Time PHQ-9 Depression Total Score: 18 024 9:55 AM EST documented as of this encounter Care Teams Balancing Machine Set Up Worker Relationship Specialty Start Date End Date Matilde Calabrese MD [address] [place] [address] PCP - General Internal Medicine 11/23/23 Kourtney Su PharmD [address] [place] [address]69 Pharmacist Internal Medicine 12/05/23 Cecily Pinedo RN [address] [place] [address] Cardiopulmonary SpecialistGas Controller 01/08/24 [facility] 01/09/24 documented as of this encounter
--- OUTSIDE RECORDS SUMMARY | 2024-03-12 17:25 | XMS_ITS | Encounter Summary ---
Author Organization [employer] Address 75 [facility] 7t [place] [address] Care Team Providers Care Residential Director Name Role Phone Matilde Calabrese MD Primary Care Provide r Kourtney Su PharmD Unavailable [phone] Cecily Pinedo RN Unavailable [phone] Reason for Visit * Reason Onset Date Comments CRITICAL RESULT 02/18/2024 Encounter Details Date Type Department Care Team ([facility] st Contact Info) Description 02/18/2024 Telephone [facility] MEDICINE [address] [place] [address] Matilde Calabrese MD [address] [place] [address] CRITICAL RESULT Social History Tobacco Use Types Packs/Day Years [...] encounter Miscellaneous Notes * Telephone Encounter - Natalie Campbell RN - 02/18/2024 12:23 PM EST Telephone call returned to patient in regards to below message. Patient verbalized understanding and denied having any further questions or concerns at this time. Patient to follow up as needed. * Telephone Encounter - Roasline Issa RN - 02/18/2024 11:40 AM EST Incoming call to the Critical Result line 02/18/24 at 11:40 AM Name of Caller/Facility:[facility] Callback number: [phone] Reason for Call: Glucose of 464mg/dL drawn today at 0945. Message to be forwarded to Matilde Youngblood MD and team nurses for follow up PRN. Call to Raji Anderson for triage above. Pt reports was not fasting. Pt states glucose sensor read HI as well. Pt denies any sx of hyperglycemia. States has increased water intake since draw. Pt states will check BS when arrives home. Advised to return call if continues >300s. Pt states on weekly Trulicity and tresiba at night 12 units. Reviewed sx and reasons to call back. documented in this encounter Plan of Treatment Upcoming Encounters Date Type Department Care Team (Late st Contact Info) Description 03/18/2024 9:30 AM EST Medication Management [address] [address] Kourtney Su PharmD [address] [place] [address] 05/06/2024 10:00 AM EDT Office Visit [address] [address] Matilde Calabrese MD [address] [place] [address] documented as of this encounter Visit Diagnoses Not on filedocumented in this encounter Additional Health Concerns Assessment Noted Time PHQ-9 Depression Total Score: 18 024 9:55 AM EST documented as of this encounter Care Teams Residential Director Relationship Specialty Start Date End Date Matilde Calabrese MD [address] [place] [address] PCP - General Internal Medicine 11/23/23 Kourtney Su, PharmD [address] [place] [address] Pharmacist Internal Medicine 12/05/23 Cecily Pinedo RN [address] [place] [address] Toll LinemanInformation And Referral Director 01/08/24 [facility] 01/09/24 documented as of this encounter
--- OUTSIDE RECORDS SUMMARY | 2024-03-12 17:25 | XMS_ITS | Encounter Summary ---
Author Organization [employer] Address 75 [facility] 7t [place] [address] Care Team Providers Care Electronic Communications Technician Name Role Phone Alexandre Sandoval MD Primary Care Prov ider Matilde Calabrese MD Primary Care Provide r Kourtney Su PharmD Unavailable [phone] Cecily Pinedo RN Unavailable [phone] Reason for Visit * Reason Comments Med Change Request Encounter Details Date Type Department Care Team (Late Contact Info) Description 05/23/2022 Refill [facility] MED & PEDS [address] [place], [place] [phone] Alexandre Sandoval MD [address] [place] [address] Social History Tobacco Use Types Packs/Day Years Used Date Smoking Tobacco: Never Assessed Sex and Gender Information Value Date Recorded Sex Assigned at Male 12/19/2021 10:34 AM EDT Legal Sex Male 10:34 AM EDT Gender Identity Male 12/19/2021 10:34 AM EDT Sexual Orientation Straight 12/19/2021 10 :34 AM EDT documented as of this encounter Miscellaneous Notes * Telephone Encounter - Alexandre Moe MD - 05/25/2022 8:49 AM EDT Changed to pen documented in this encounter Plan of Treatment Upcoming Encounters Date Type Department Care Team (Late Contact Info) Description 03/18/2024 9:30 AM EST Medication Management [facility] MEDICINE [address] [place] [address] Kourtney Su PharmD [address] [place] [address] 05/06/2024 10:00 AM EDT Office Visit [facility] MEDICINE [address] [place] [address] Matilde Calabrese MD [address] [place] [address] documented as of this encounter Visit Diagnoses Not on filedocumented in this encounter Care Teams Electronic Communications Technician Relationship Specialty Start Date End Date Alexandre Sandoval MD [address] [place], [place] [phone] PCP - General Internal Medicine 07/20/19 11/22/23 Matilde Calabrese MD [address] [place] [address] PCP - General Internal Medicine 11/23/23 Kourtney Su PharmD [address] [place] [address] Pharmacist Internal Medicine 12/05/23 Cecily Pinedo RN [address] [place] [address] Vrt MechanicLocation Director 01/08/24 [facility] 01/09/24 documented as of this encounter
--- OUTSIDE RECORDS SUMMARY | 2024-03-12 17:25 | XMS_ITS | Encounter Summary ---
Author Organization [employer] Address 75 [facility] 7t [place] [address] Care Team Providers Care Project Reservoir Engineer Name Role Phone Alexandre Sandoval MD Primary Care Prov ider Matilde Calabrese MD Primary Care Provide r Kourtney Su PharmD Unavailable [phone] Cecily Pinedo RN Unavailable [phone] Encounter Details Date Type Department Care Team (Late st Contact Info) Description 11/08/2023 Telephone [facility] MEDICINE [address] [place] [address] Marie Birmingham PharmD [address] [place] [address] Social History Tobacco Use Types Packs/Day Years [...] encounter Miscellaneous Notes * Telephone Encounter - Marie Birmingham PharmD - 11/08/2023 10:52 AM EDT Please assist in obtaining discharge paperwork from [facility] Patient was discharged on 11/04/2023. Thank you documented in this encounter Plan of Treatment Upcoming Encounters Date Type Department Care Team (Late st Contact Info) Description 03/18/2024 9:30 AM EST Medication Management [facility] MEDICINE [address] [place] [address] Kourtney Su PharmD [address] [place] [address] 05/06/2024 10:00 AM EDT Office Visit [facility] MEDICINE [address] [place] [address] Matilde Calabrese MD [address] [place] [address] documented as of this encounter Visit Diagnoses Not on filedocumented in this encounter Care Teams Project Reservoir Engineer Relationship Specialty Start Date End Date Alexandre Sandoval MD [address] [place] [address] PCP - General Internal Medicine 07/20/19 11/22/23 Matilde Calabrese MD [address] [place] [address] PCP - General Internal Medicine 11/23/23 Kourtney Su PharmD [address] [place] [address] Pharmacist Internal Medicine 12/05/23 Cecily Pinedo RN [address] [place] [address] Bakery WorkerBranch Maker 01/08/24 [facility] 01/09/24 documented as of this encounter
--- OUTSIDE RECORDS SUMMARY | 2024-03-12 17:25 | XMS_ITS | Encounter Summary ---
Author Organization [employer] Address 75 [facility] 7t [place] [address] Care Team Providers Care Cloth Booker Name Role Phone Alexandre Sandoval MD Primary Care Prov ider Matilde Calabrese MD Primary Care Provide r Kourtney Su PharmD Unavailable Cecily Pinedo RN Unavailable [phone] Encounter Details Date Type Department Care Team ([facility] Contact Info) Description 07/18/2022 Orders Only [facility] MED & PEDS [address] [place] [address] Belem Pedraza LPN Social History Tobacco Use Types Packs/Day Years Used Date Smoking Tobacco: Never Assessed Sex and Gender Information Value Date Recorded Sex Assigned at Male 12/19/2021 10:34 AM EDT Legal Sex Male 10:34 AM EDT Gender Identity Male 12/19/2021 10:34 AM EDT Sexual Orientation Straight 12/19/2021 10 :34 AM EDT COVID-19 Exposure Response Date Recorded In the last 10 days, have yo u been in contact with someone who was confirmed or suspected to have Coronavirus/COVID-19? No / Unsure 07/18/2022 1:59 PM EDT documented as of this encounter Plan of Treatment Upcoming Encounters Date Type Department Care Team ([facility] Contact Info) Description 03/18/2024 9:30 AM EST Medication Management [facility] MEDICINE [address] [place], [place] [phone] Kourtney Su, PharmD [address] [place], [place] [phone] 05/06/2024 10:00 AM EDT Office Visit [facility] MEDICINE [address] [place] [address] Matilde Calabrese MD [address] [place] [address] documented as of this encounter Visit Diagnoses Not on filedocumented in this encounter Care Teams Cloth Booker Relationship Specialty Start Date End Date Alexandre Sandoval MD [address] [place] [address] PCP - General Internal Medicine 07/20/19 11/22/23 Matilde Calabrese MD [address] [place] [address] PCP - General Internal Medicine 11/23/23 Kourtney Su PharmD [address] [place] [address] Pharmacist Internal Medicine 12/05/23 Cecily Pinedo, ROSA [address] [place] [address] Unit AssemblerCripple Chaser 01/08/24 [facility] 01/09/24 documented as of this encounter
--- OUTSIDE RECORDS SUMMARY | 2024-03-12 17:25 | XMS_ITS | Encounter Summary ---
Author Organization [employer] Address [address] [place] [address] Care Team Providers Care Cooking Casing And Drying Supervisor Name Role Phone Matilde Calabrese MD Primary Care Provide r Kourtney Su PharmD Unavailable [phone] Cecily Pinedo RN Unavailable [phone] Reason for Visit * Reason Onset Date Comments Hyperglycemia 02/19/2024 Encounter Details Date Type Department Care Team (Late st Contact Info) Description 02/19/2024 Telephone [facility] [address] [place] [address] Ileana Jones RN Hyperglycemia Social History Tobacco Use Types Packs/Day Years [...] encounter Miscellaneous Notes * Telephone Encounter - Ileana Jones RN - 02/19/2024 11:06 AM EST Pt came into a CDTM appointment with Samara Lantigua and pt blood glucose meter read high. Per Rhina under Dr. Little the pt was instructed to do a urine sample for ketone testing and 8 units of Lispro insulin were also ordered and given to the pt. Pt remained in the office for another 20-30 minutes after the insulin Lispro was ordered and blood glucose was retested. Glucose was retested and the blood sugar reading was 431. Per Dr. Little another 4 units of Lispro was ordered and given. Second blood glucose was taken and the reading was 417. This 417 blood glucose reading was communicatedto Dr. Little who was satisfied with the glucose trending downward. Dr. Little saw the pt and didan assessment to determine if pt was stable enough to leave. documented in this encounter Plan of Treatment Upcoming Encounters Date Type Department Care Team (Late st Contact Info) Description 03/18/2024 9:30 AM EST Medication Management [facility] [address] [place] [address] Kourtney Su, PharmD [address] [place] [address] 05/06/2024 10:00 AM EDT Office Visit [facility] [address] [place] [address] Matilde Calabrese MD [address] [place], [place] [phone] documented as of this encounter Procedures Procedure Name Priority Date/Time Associated Diagnosis Comments POCT GLUCOSE Routine 02/19/2024 12:57 PM EST Hyperglycemia POCT GLUCOSE Routine 02/19/2024 12:17 PM EST Hyperglycemia POCT URINALYSIS DIPSTICK Routine 02/19/2024 11:22 AM EST Hyperglycemia documented in this encounter Results * (ABNORMAL) POCT Glucose (02/19/2024 12:57 PM EST) Glucose Blood, POC 417(A) 60 - 200 mg/dL QC Media Lot # [id number] Lot# Expiration Date Blood Capillary blood specimen / Unknown 02/19/2024 12:57 PM EST Christian Fuchs MD POINT OF CARE TEST EN TER/EDIT ORDERABLES Final Result * (ABNORMAL) POCT Glucose (02/19/2024 12:17 PM EST) Glucose Blood, POC 431(A) 60 - 200 mg/dL QC Media Lot # [id number] Lot# Expiration Date Blood Capillary blood specimen / Unknown 02/19/2024 12:17 PM EST us Christian Fuchs MD POINT OF [...] Media Lot # [id number] Lot# Expiration Date [id number] Urine 02/19/2024 11:2 2 AM EST Christian Fuchs MD POINT OF CARE TEST EN TER/EDIT ORDERABLES Final Result documented in this encounter Visit Diagnoses Diagnosis Hyperglycemia Other abnormal glucose documented in this encounter Additional Health Concerns Assessment Noted Time PHQ-9 Depression Total Score: 18 024 9:55 AM EST documented as of this encounter Care Teams Cooking Casing And Drying Supervisor Relationship Specialty Start Date End Date Matilde Calabrese MD [address] [place] [address] PCP - General Internal Medicine 11/23/23 Kourtney Su PharmD [address] [place] [address] Pharmacist Internal Medicine 12/05/23 Cecily Pinedo RN [address] [place] [id number] Driver Starting [employer] Fisherman 01/08/24 [facility] 01/09/24 documented as of this encounter
== END 2024-03-12 14:54 | disposition home or self-care (01) ==
LOC: HO.HHCL 14:53
PROVIDERS: Visit Provider Internal Medicine
DX: H57.11 Ocular pain, right eye (principal); R51.9 Headache, unspecified
CPT/HCPCS: 36415; 80048; 85025; 85652

== ENCOUNTER 2024-03-14 07:43 | Outpatient (REF) | payer MEDICAID, SELFPAY ==
--- NOTE | ~2024-03-14 | CT_ITS ---
CLINICAL HISTORY: OCULAR PAIN RT EYE, HEADACHE, PAINFUL RT EYE EXTRAOCULAR MOVEMENTS CT orbits without contrast Comparison: None Findings: No acute fractures identified. Small amount of fluid within the right mastoid air cells as described on the patient's accompanying head CT. No proptosis. No postseptal induration. Extraocular muscles are unremarkable. No air-fluid levels identified within the paranasal sinuses. IMPRESSION: No acute imaging explanation for the patient's symptoms. If the patient has persistent or worsening symptoms, may consider contrast-enhanced MRI of the orbit for further evaluation. This document has been electronically signed by: Sree Baron MD on 03/14/2024 10:05:43
--- NOTE | ~2024-03-14 | CT_ITS ---
CLINICAL HISTORY: painful right eye extraocular movements CT head without contrast Comparison: None Findings: The size and shape of the ventricular system is within normal limits. Attenuation of the brain parenchyma is within normal limits. Menard-white differentiation is well preserved. No midline shift or mass effect. No intracranial hemorrhage. No calvarial fractures. Fluid within the right mastoid air cells. IMPRESSION: 1. No acute intracranial findings. 2. Right mastoid effusion. This document has been electronically signed by: Sree Baron MD on 03/14/2024 10:02:46
== END 2024-03-14 07:44 | disposition home or self-care (01) ==
LOC: HO.CT 07:43
PROVIDERS: PCP Internal Medicine; Visit Provider Internal Medicine
DX: H57.11 Ocular pain, right eye (principal); R51.9 Headache, unspecified
CPT/HCPCS: 70450; 70480

== ENCOUNTER → 2024-03-14 07:44 | Outpatient (BNV) | payer MEDICAID, SELFPAY | PROVIDERS: PCP Internal Medicine; Visit Provider Radiology Diagnostic Radiology | DX: H57.11 Ocular pain, right eye (principal); H74.8X1 Other specified disorders of right middle ear and mastoid | CPT/HCPCS: 70450; 70480 ==

== ENCOUNTER 2024-03-18 05:49 | Outpatient (REF) | payer MEDICAID, SELFPAY ==
--- NOTE | 2024-03-18 | EMG_ITS ---
Bilateral median and ulnar motor and sensory studies were performed. Bilateral radial and median and lateral antecubital brachial sensory studies were performed and paraspinal muscles were tested with a needle. 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 MD KRAIG De Los Santos/SHAVON / [id number]
--- OUTSIDE RECORDS SUMMARY | 2024-03-18 05:51 | XMS_ITS | Encounter Summary ---
Author Organization [employer] Address [address] [place] [address] Care Team Providers Care Pump Servicer Name Role Phone Matilde Calabrese MD Primary Care Provide r Kourtney Su PharmD Unavailable [phone] Cecily Pinedo RN Unavailable [phone] Reason for Visit * Reason Onset Date Comments Care Management 02/25/2024 C3CM- f/u call Encounter Details Date Type Department Care Team ([facility] st Contact Info) Description 02/25/2024 Telephone [facility] MED[facility] [address] [place] [address] Cecily Pinedo, RN [address] [place] [address] Care Management (C3CM- f/u call) Social History [...] that [facility] will be [facility] [...] usually see him daily around 4pm for preventive medicine officer. Patient also requesting assistance with housing. Patient is currently unemployed. He states he called the [employer] security office recently but call was dropped. Patient intends on reaching out to the office again to inquire on status. CHW will contact patient to assist with resources. No further questions or concerns. CM reinforced direct contact information or CHW for any additional questions or concerns. Education provided on [facility] located in [facility] of [facility]. Patient provided with after-hours line for [facility], , which offer night time triage service and option to transfer to promotional demonstrator provider if needed. Patient verbalizes understanding, and able to repeat back to abstract writer. A follow up call will be placed within 10 days, patientagrees with plan. documented in this encounter Plan of Treatment Upcoming Encounters Date Type Department Care Team ([facility] st Contact Info) Description 03/26/2024 9:30 AM EST Medication Management [facility] MED[facility] [address] [place] [address] Kourtney Su, PharmD [address] [place] [address] 05/06/2024 10:00 AM EDT Office Visit [facility] [address] [place] [address] Matilde Calabrese MD [address] [place] [address] [phone] 06/03/2024 11:30 AM EDT Office Visit [facility] P[facility]S [address] [place], [place] [phone] Rodger Cole MD [address] [place], [place] [phone] documented as of this encounter Visit Diagnoses Not on filedocumented in this encounter Additional Health Concerns Assessment Noted Time PHQ-9 Depression Total Score: 18 12/26/ 024 9:55 AM EST documented as of this encounter Care Teams Pump Servicer Relationship Specialty Start Date End Date Matilde Calabrese MD [address] [place] [address] PCP - General Internal Medicine 11/23/23 Kourtney Su PharmD [address] [place] [address] Pharmacist Internal Medicine 12/05/23 Cecily Pinedo RN [address] [place] [address] Celery TierSupervisor Pipe Finishing 01/08/24 [facility] 01/09/24 documented as of this encounter
--- OUTSIDE RECORDS SUMMARY | 2024-03-18 05:51 | XMS_ITS | Encounter Summary ---
Author Organization [employer] Address [address] [place] [address] Care Team Providers Care Social Work Coordinator Name Role Phone Matilde Calabrese MD Primary Care Provide r Kourtney Su PharmD Unavailable [phone] Cecily Pinedo RN Unavailable [phone] Encounter Details Date Type Department Care Team (Late st Contact Info) Description 03/11/2024 Telephone [facility] [address] [place], [place] [phone] Kourtney Su, PharmD [address] [place] [address] Social History Tobacco Use Types Packs/Day Years [...] Su PharmD - 03/11/2024 4:47 PM EST [facility] outreached patient due to reported concern [...] prevent hypoglycemia. Refill for glucose tablets prescribed. [facility] has scheduled follow up with patient next week. documented in this encounter Plan of Treatment Upcoming Encounters Date Type Department Care Team (Late st Contact Info) Description 03/26/2024 9:30 AM EST Medication Management [facility] MEDICINE [address] [place] [address] Kourtney Su PharmD [address] [place] [address] 05/06/2024 10:00 AM EDT Office Visit [facility] MED[facility]INE [address] [place] [address] Matilde Calabrese MD [address] [place] [address] 06/03/2024 11:30 AM EDT Office Visit [facility] MED & PEDS [address] [place], [place] [phone] Rodger Cole MD [address] [place], [place] [phone] documented as of this encounter Visit Diagnoses Diagnosis Type 2 diabetes mellitus with hyperglycemia, with long-term current use of insulin ([facility])- Primary documented in this encounter Additional Health Concerns Assessment Noted Time PHQ-9 Depression Total Score: 18 024 9:55 AM EST documented as of this encounter Care Teams Social Work Coordinator Relationship Specialty Start Date End Date Matilde Calabrese MD [address] [place] [phone] PCP - General Internal Medicine 11/23/23 Kourtney Su, PharmD [address] [place] [phone] Pharmacist Internal Medicine 12/05/23 Cecily Pinedo, ROSA [address] [place] [address] Disk OperatorMetal Fabrication Supervisor 01/08/24 [facility] 01/09/24 documented as of this encounter
--- OUTSIDE RECORDS SUMMARY | 2024-03-18 05:51 | XMS_ITS | Encounter Summary ---
Author Organization [employer] Address [address] [place] [address] Care Team Providers Care Correctional Counselor/Case Manager Name Role Phone Matilde Calabrese MD Primary Care Provide r Kourtney Su PharmD Unavailable [phone] Cecily Pinedo RN Unavailable [phone] Encounter Details Date Type Department Care Team (Late st Contact Info) Description 03/14/2024 Orders Only [facility] MED[facility] [address] [place], [place] [phone] Christian Muñoz MD [address] [place], [place] [phone] Social History Tobacco Use Types Packs/Day Years [...] Description 03/26/2024 9:30 AM EST Medication Management [facility] [address] [place] [address] Kourtney Su, PharmD [address] [place] [address] 05/06/2024 10:00 AM EDT Office Visit [facility] [address] [place] [address] Matilde Calabrese MD [address] [place] [address] 06/03/2024 11:30 AM EDT Office Visit [facility] MED & PEDS [address] [place], [place] [phone] Rodger Cole MD [address] [place] [address] documented as of this encounter Procedures Procedure Name Priority Date/Time Associated Diagnosis Comments CT ORBIT BI WO CONTRAST Routine 03/14/2024 10:05 AM EST documented in this encounter Results * CT ORBIT BI WO CONTRAST (03/14/2024 10:05 AM EST) Anatomical Region Laterality Modality Head, Neck Computed Tomogra phy 03/14/2024 10:0 5 AM EST Narrative 03/14/2024 10:07 AM EST ? [facility] ?[address] ?[place] [address] ? CT Scan Report ? Signed ? Patient: Anderson,Raji ?MR#: [id number] ? : 1985 ?Acct:[id number] ? Age/Sex: 38 / M ?ADM Date: 03/14/24 ? Loc: HO.CT ? Attending Dr: Christian Shelton MD ? Ordering Physician: Christian Shelton MD ?? Date of Service: 03/14/24 ?? Procedure(s): CT orbit BI wo IV con ?? Accession Number(s): [id number] ? cc: Matilde Calabrese MD; Christian Shelton MD ? Report Number: ?? [id number]: Total DLP = ??121.00 mGy-cm ? CLINICAL HISTORY: OCULAR PAIN RT EYE, HEADACHE, PAINFUL RT EYE EXTRAOCULAR MOVEMENTS ? CT orbits without contrast ? Comparison: None ? Findings: ?? No acute fractures identified. Small amount of fluid within the right ?? mastoid air cells as described on the patient's accompanying head CT. ?? No proptosis. ?? No postseptal induration. ?? Extraocular muscles are unremarkable. ?? No air-fluid levels identified within the paranasal sinuses. ? IMPRESSION: ?? No acute imaging explanation for the patient's symptoms. If the patient ?? has persistent or worsening symptoms, may consider contrast-enhanced MRI ?? of the orbit for further evaluation. ? This document has been electronically signed by: Sree Baron MD on ?? 03/14/2024 10:05:43 ? Dictated By: ?Sree Baron MD ? Signed By: ?<Electronically signed by Sree Baron MD in OV> ? 03/14/246 ? DD/ ? TD/TT: 03/14/245 ? Salsa Dance Instructor: ? Procedure Note Donotuseinterpreter, Image - 03/14/[address] [address] [address] Scan Report Signed Patient: Cedrick Anderson#: [id number] : 1985Acct:[id number] Age/Sex: 38 / MADM Date: 03/14/24 Loc: HO.CT Attending Dr: Christian Shelton MD Ordering Physician: Christian Shelton MD Date of Service: 03/14/24 Procedure(s): CT orbit BI wo IV con Accession Number(s): [id number] cc: Matilde Calabrese MD; Christian Shelton MD Report Number: [id number]: Total DLP = 121.00 mGy-cm CLINICAL HISTORY: OCULAR PAIN RT EYE, HEADACHE, PAINFUL RT EYE EXTRAOCULARMOVEMENTS CT orbits without contrast Comparison: None Findings: No acute fractures identified. Small amount of fluid within the right mastoid air cells as described on the patient's accompanying head CT. No proptosis. No postseptal induration. Extraocular muscles are unremarkable. No air-fluid levels identified within the paranasal sinuses. IMPRESSION: No acute imaging explanation for the patient's symptoms. If the patient has persistent or worsening symptoms, may consider contrast-enhanced MRI of the orbit for further evaluation. This document has been electronically signed by: Sree Baron MD on 03/14/2024 10:05:43 Dictated By: Sree Baron MD Signed By: <Electronically signed by Sree Baron MD in OV> 03/14/24 1006 DD/ 1005 TD/TT: 03/14/24 1005 Salsa Dance Instructor: us Christian Fuchs MD IMG CT PROCEDURES Fin al Result documented in this encounter Visit Diagnoses Not on filedocumented in this encounter Additional Health Concerns Assessment Noted Time PHQ-9 Depression Total Score: 18 024 9:55 AM EST documented as of this encounter Care Teams Correctional Counselor/Case Manager Relationship Specialty Start Date End Date Matilde Calabrese MD [address] [place] [address] PCP - General Internal Medicine 11/23/23 Kourtney Su PharmD [address] [place] [address] Pharmacist Internal Medicine 12/05/23 Cecily Pinedo RN [address] [place] [phone] PolysomnographerMusician Instrumental 01/08/24 [facility] 01/09/24 documented as of this encounter
--- OUTSIDE RECORDS SUMMARY | 2024-03-18 05:51 | XMS_ITS | Encounter Summary ---
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 male. HPI Referral from urgent care visit yesterday Patient reports pain right eye (OD) x 5 days. Pain is worsened on left and upgaze. Patient reports deep boring pain that reaches 10/10 on pain scale. Patient went to ER on 03/09/23 and was Dx'd with migraine and given migraine cocktail. Patient states this helped to temporarily dull some headache pain that he was experiencing on the right voodoo. Patient also notes right eye (OD) has been gunky and mildly swollen when waking up since pain started. Patient reports blurry vision right eye (OD), denies diplopia. Patient denies any similar previous episodes. Pt denies trauma. Patient was seen in [facility] UC yesterday - CBC, ESR and chem labs ordered (patient stopped at lab for blood draw right before appt). Stat CT of brain and orbits ordered as well (scheduled for 03/14/24). ANSON: 10+ Note: recent T2DM Dx in 2023. Poorly controlled and recently started insulin. Last A1c 10.3% (02/18/24). BSL in the AM 160mg/dl Last edited by Anisha Gresham OD on 03/13/2024 12:12 PM. Current Outpatient Medications Medication Sig Dispense Refill acetaminophen (Tylenol 8 Hour) 650 MG ER tablet Take 1 tablet (650 mg) by mouth every 8 (eight) hours if needed for mild pain. Do not crush, chew, or split. 50 tablet 1 amLODIPine (Norvasc) 10 MG tablet Take 1 tablet by mouth once daily 90 tablet 0 atorvastatin (Lipitor) 20 MG tablet Take 1 tablet by mouth once daily 90 tablet 0 baclofen (Lioresal) 10 MG tablet Take 1 tablet (10 mg) by mouth 3 times daily. 90 tablet 0 benzoyl peroxide (Benzac AC) 10 % external wash Use to wash affected areas nightly. Please be awarethat may bleach towels/clothes. 142 g 2 Blood Glucose Monitoring Suppl (FreeStyle Lite) w/Device kit 1 Units in the morning. 1 kit 0 Blood Pressure Monitoring (Blood Pressure Cuff) misc 1 each Once daily. 1 each 0 carvedilol (Coreg) 6.25 MG tablet Take 1 tablet by mouth twice daily 180 tablet 0 clindamycin (Clindagel) 1 % gel Apply topically Once per day. Apply to affected areas for HS. 60 g 2 Continuous Glucose Supervisor Hand Workers (FreeStyle Cherelle 2 [place]ash) device Scan sensor every 8 hours 1 each 0 Continuous Glucose Sensor (FreeStyle Cherelle 2 Sensor) misc Apply 1 sensor every 14 days 2 each 1 docusate sodium (Colace) 100 MG capsule Take 1 capsule (100 mg) by mouth 2 times daily. 60 capsule 1 Dulaglutide (Trulicity) 3 MG/0.5ML solution auto-injector Inject 0.5 mL (3 mg) under the skin 1 (one) time per week. 2 mL 3 FreeStyle lancets 1 each by Other route 4 times daily. 100 each 11 gabapentin (Neurontin) 300 MG capsule Take 1 capsule (300 mg) by mouth 3 times daily. 90 capsule 3 glucose 4 g chewable tablet Use as directed for low blood sugar 50 tablet 11 glucose blood (FreeStyle Precision Jefry Test) test strip Use to test blood sugar 3 times daily 100 each 12 insulin degludec (Tresiba FlexTouch) 100 UNIT/ML injection Inject subcutaneously 18 units once daily 15 mL 0 levothyroxine (Synthroid) 100 MCG tablet Take 1 tablet (100 mcg) by mouth before breakfast. 90 tablet 3 lisinopril (Prinivil) 10 MG tablet Take 1 tablet (10 mg) by mouth Once per day. 30 tablet 11 lisinopril (Prinivil) 20 MG tablet Take 1 tablet (20 mg) by mouth Once per day. 30 tablet 1 omeprazole OTC (PriLOSEC OTC) 20 MG EC tablet Take 1 tablet (20 mg) by mouth before breakfast. Do not crush, chew, or split. 30 tablet 11 pen needle 32G x 4 mm misc Use as instructed with insulin administration once daily 100 each 0 polyethylene glycol, PEG, 3350 (MiraLax) 17 GM/SCOOP powder Take 17 g by mouth Once per day. 527 g 1 UltiCare Alcohol Swabs 70 % pads Use as directed with insulin administration once daily 100 each 3 No current facility-administered medications for this visit. History reviewed. No pertinent past medical history. History reviewed. No pertinent surgical history. No family history on file. Tobacco Use: Low Risk (03/12/2024) Tobacco Smoking Tobacco Use: Never Smokeless Tobacco Use: Never Passive Exposure: Never Allergies Allergen Reactions Ibuprofen my dr says not to take it because my kidneys . Other Reaction(s): Renal Impairment But can take indomethacin without problems Iodinated Contrast Media Other Reaction(s): Renal Impairment ROS Positive for: Endocrine, Eyes Negative for: Constitutional, Gastrointestinal, Neurological, Skin, Genitourinary, Musculoskeletal,HENT, Cardiovascular, Respiratory, Psychiatric, Allergic/Imm, Heme/Lymph Last edited by Anisha Gresham, OD on 03/13/2024 12:10 PM. Base Eye Exam Visual Acuity (Snellen - Linear) Right Left Dist sc 20/20 20/20 Tonometry (iCare , 3:34 PM) Right Left Pressure 11 11 Pupils Pupils APD Right PERRL None Left PERRL None Visual Schuler (Counting fingers) Left Right Full Full Extraocular Movement Right Left Full Full Pain right eye (OD) worse on upgaze, mild discomfort on left gaze; no EOM restrictions Neuro/Psych Oriented x3: Yes Mood/Affect: Normal Dilation Both eyes: 1.0% tropicamide @ 3:39 PM Additional Tests Color Right Left Ishihara 14 14 captain waiter desat: Patient reports darker burgundy color right eye (OD), bright red left eye (OS); pt unable to quantify what % saturation right eye (OD) is compared to left eye (OS) Additional Notes Cover test @ distance: ~3XP @ near in primary gaze: alternating intermittent 14pd XT; PEDIG control scale 4; @ near in left gaze: 18pd, @ near in right gaze: 18pd Slit Lamp and Fundus Exam External Exam Right Left External Normal Normal Tender to palpation temporal upper lid (UL) right eye (OD) Slit Lamp Exam Right Left Lids/Lashes Clean and clear, (-) FB on UL eversion Clean and clear Conjunctiva/Sclera White and quiet White and quiet Cornea Clear; no NaFL staining Clear Anterior Chamber Flat, round Deep and quiet, angles open Iris Flat, round, (-) NVI Flat, round, (-) NVI Lens Clear Clear Fundus Exam Right Left Vitreous Clear Clear Disc Millen and healthy, distinct margins, (-) BV obscruation, (-) pallor, (-) NVD Millen and healthy, distinct margins, (-) BV obscruation, (-) pallor, (-) NVD C/D Ratio Vertical 0.25 0.20 C/D Ratio Horizontal 0.25 0.20 Macula Flat, even pigmentation; scattered HMAs, exudates superiorly, (-) DME Flat, even pigmentation; scattered HMAs, exudates inferiorly, (-) DME Vessels Mild venous beading superiorly, (+) DIANDRA inferior temporal aracdes and superior temporal arcades(-) NVE Mild venous beading superiorly, (+) DIANDRA inferior temporal aracdes and superior temporal arcades(-) NVE Periphery Scattered HMA, CWS and exudates, no holes/tears/detachments 360 Scattered HMA, CWS and exudates, no holes/tears/detachments 360 Refraction Manifest Refraction (Auto) Sphere Cylinder Schuyler Right +1.00 -0.25 104 Left +0.75 Sphere Assessment and Plan Diagnoses and all orders for this visit: Ocular pain, right eye - Etiology unclear at this time - No periorbital edema or hordeolum, no corneal abrasion or foreign body, no optic nerve edema present - DDx at this time includes: - Dacryoadenitis given location and severity of pain however no S shaped ptosis, no bulbar injection and no visible swelling - Thyroid eye disease - patient taking levothyroxine for acquired hypothyroidism, however no EOM restriction, scleral show, corneal findings or nerve edema present on examination - Migraine - diagnosis of exclusion - Patient advised that dacryoadenitis or SAVANNAH should present on CT scan. Discussed importance of keeping appointment. - Advised to RTC immediately if sudden decrease in vision, worsening pain, fever or swelling occurs. 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 Discussed importance of tight blood glucose control, medication compliance and regular follow up with PCP - Patient was referred to [facility] by PCP for routine care - appt scheduled for 05/20/24. Provided patient the option to continue care at [facility] or be seen by external OD. Patient opts to continue here. - RTC in 3 months for diabetic retinopathy f/u Intermittent exotropia, alternating - Likely longstanding. Patient denies history of diplopia. - Cranial nerve palsy ruled out due to comitancy, alternating and intermittent nature RTC in 3 months for diabetic retinopathy f/u or sooner PRN. Anisha Gresham, OD 03/13/2024, 12:12 PM documented in this encounter Plan of Treatment Upcoming Encounters Date Type Department Care Team (Late st Contact Info) Description 03/26/2024 9:30 AM EST Medication Management [facility] MED[facility]INE [address] [place] [phone] Kourtney Su, PharmD [address] [place] [address] 05/06/2024 10:00 AM EDT Office Visit [facility] MEDICINE [address] [place] [phone] Matilde Calabrese MD [address] [place] [address] 06/03/2024 11:30 AM EDT Office Visit [facility] CHC MED & PEDS [address] [place] [address] Rodger Cole MD [address] [place] [address] documented as of this encounter Procedures Procedure Name Priority Date/Time Associated Diagnosis Comments FUNDUS PHOTOS - OU - BOTH EYES Routine 03/12/2024 3:45 PM EST 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 ([facility]) documented in this encounter Results * Fundus Photos - OU - Both Eyes (03/12/2024 3:45 PM EST) Anisha Scott, OD - 03/13/2024 12:30 PM EST FUNDUS PHOTO INTERPRETATION Fundus Photo Interpretation Report Reliability: OD: Good quality image OS: Good quality image Test Details: OD: ONH pink and healthy, distinct margins, (-) BV obscruation, (-) pallor, (-) neovascularization of the disc (NVD); ??scattered HMAs throughout macula with exudates superiorly, (-) DME; mild venous beading superiorly, (+) DIANDRA ??inferior temporal aracdes and superior temporal arcades(-) neovascularization elsewhere (NVE); Scattered HMA, CWS and exudates, no holes/tears/detachments 360 OS: ONH pink and healthy, distinct margins, (-) BV obscruation, (-) pallor, (-) neovascularization of the disc (NVD); ??scattered HMAs throughout macula with exudates inferiorly, (-) DME; mild venous beading superiorly, (+) DIANDRA ??inferior temporal aracdes and superior temporal arcades(-) neovascularization elsewhere (NVE); Scattered HMA, CWS and exudates, no holes/tears/detachments 360 Plan: RTC 3 months for f/u Result [facility] Anisha Marga OD OPHTH PHOTOGRAPHY Final Result documented in this encounter Visit Diagnoses Diagnosis Ocular pain, right eye- Primary 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 ([facility]) Intermittent exotropia, alternating documented in this encounter Additional Health Concerns Assessment Noted Time PHQ-9 Depression Total Score: 18 024 9:55 AM EST documented as of this encounter Care Teams Rn Hospital Relationship Specialty Start Date End Date Matilde Calabrese MD [address] [place] [address] PCP - General Internal Medicine 11/23/23 Kourtney Su PharmD [address] [place] [address] Pharmacist Internal Medicine 12/05/23 Cecily Pinedo, ROSA [address] [place] [address] Hydroelectric Production TechnicianPrimary Mill Roller 01/08/24 [facility] 01/09/24 documented as of this encounter
--- OUTSIDE RECORDS SUMMARY | 2024-03-18 05:51 | XMS_ITS | Encounter Summary ---
Author Organization [employer] Address [address] [facility] [address] [place] [address] Care Team Providers Care Electrical Systems Drafter Name Role Phone Matilde Calabrese MD Primary Care Provide r Kourtney Su PharmD Unavailable [phone] Cecily Pinedo RN Unavailable [phone] Encounter Details Date Type Department Care [...] Upcoming Encounters Date Type Department Care Team ([facility] st Contact Info) Description 03/26/2024 9:30 AM EST Medication Management [facility] MEDICINE [address] [place] [address] Kourtney Su, PharmD [address] [place] [phone] 05/06/2024 10:00 AM EDT Office Visit [facility] MEDICINE [address] [place] [address] Matilde Calabrese MD [address] [place] [phone] 06/03/2024 11:30 AM EDT Office Visit [facility] CHC MED & PEDS [address] [place] [address] Rodger Cole MD [address] [place] [address] documented as of this encounter Visit Diagnoses Not on filedocumented in this encounter Additional Health Concerns Assessment Noted Time PHQ-9 Depression Total Score: 18 024 9:55 AM EST documented as of this encounter Care Teams Electrical Systems Drafter Relationship Specialty Start Date End Date Matilde Calabrese MD [address] [place] [address] PCP - General Internal Medicine 11/23/23 Kourtney Su PharmD [address] [place] [address] Pharmacist Internal Medicine 12/05/23 Cecily Pinedo RN [address] [place] [phone] Residential Sales ConsultantEditor In Chief 01/08/24 [facility] 01/09/24 documented as of this encounter
--- OUTSIDE RECORDS SUMMARY | 2024-03-18 05:51 | XMS_ITS | Encounter Summary ---
Author Organization [employer] Address 75 [facility] 7t [place] [address] Care Team Providers Care Automotive Wholesale Parts Advisor Name Role Phone Matilde Calabrese MD Primary Care Provide r Kourtney Su PharmD Unavailable [phone] Cecily Pinedo RN Unavailable [phone] Encounter Details Date Type Department Care Team (Late st Contact Info) Description 02/07/2024 Orders Only [facility] [address] [place] [address] ProviderAri MD Social History Tobacco Use Types [...] Description 03/26/2024 9:30 AM EST Medication Management [facility] MED[facility]INE [address] [place] [address] Kourtney Su, PharmD [address] [place] [address] 05/06/2024 10:00 AM EDT Office Visit [facility] MED[facility] [address] [place] [address] Matilde Calabrese MD [address] [place] [address] 06/03/2024 11:30 AM EDT Office Visit [facility] CHC MED & PEDS [address] [place], [place] [phone] Rodger Cole MD [address] [place] [address] documented as of this encounter Procedures Procedure [...] documented as of this encounter Care Teams Automotive Wholesale Parts Advisor Relationship Specialty Start Date End Date Matilde Calabrese MD [address] [place] [address] PCP - General Internal Medicine 11/23/23 Kourtney Su PharmD [address] [place] [address] Pharmacist Internal Medicine 12/05/23 Cecily Pinedo RN [address] [place] [phone] Print And Pattern DesignerAllied Health Professional 01/08/24 [facility] 01/09/24 documented as of this encounter
--- OUTSIDE RECORDS SUMMARY | 2024-03-18 05:51 | XMS_ITS | Encounter Summary ---
Author Organization [employer] Address 75 [facility] [address]t [place] [address] Care Team Providers Care Airport Operations Duty Manager Name Role Phone Matilde Calabrese MD Primary Care Provide r Kourtney Su PharmD Unavailable [phone] Cecily Pinedo RN Unavailable [phone] Reason for Visit * Reason Onset Date Comments CRITICAL RESULT 02/18/2024 Encounter Details Date Type Department Care Team ([facility] st Contact Info) Description 02/18/2024 Telephone [facility] [address] [place] [address] Matilde Calabrese MD [address] [place] [address] CRITICAL RESULT Social History Tobacco Use Types [...] up as needed. * Telephone Encounter - Rosaline Issa RN - 02/18/2024 11:40 AM EST Incoming call to the Critical Result line 02/18/24 at 11:40 AM Name of Caller/Facility:[facility] Callback number: [phone] Reason for Call: Glucose of 464mg/dL drawn [...] Description 03/26/2024 9:30 AM EST Medication Management [facility] [address] [place] [address] Kourtney Su PharmD [address] [place] [address] 05/06/2024 10:00 AM EDT Office Visit [facility] [address] [place] [address] Matilde Calabrese MD [address] [place] [address] 06/03/2024 11:30 AM EDT Office Visit [facility] CHC MED & PEDS [address] [place], [place] [phone] Rodger Cole MD [address] [place] [address] documented as of this encounter Visit Diagnoses Not on filedocumented in this encounter Additional Health Concerns Assessment Noted Time PHQ-9 Depression Total Score: 18 024 9:55 AM EST documented as of this encounter Care Teams Airport Operations Duty Manager Relationship Specialty Start Date End Date Matilde Calabrese MD [address] [place] [address] PCP - General Internal Medicine 11/23/23 Kourtney Su PharmD [address] [place] [address] Pharmacist Internal Medicine 12/05/23 Cecily Pinedo, ROSA [address] [place] [address] Flamer SealerMural Painter 01/08/24 [facility] 01/09/24 documented as of this encounter
--- OUTSIDE RECORDS SUMMARY | 2024-03-18 05:51 | XMS_ITS | Encounter Summary ---
Author Organization [employer] Address [address] [facility] [address] [place] [address] Care Team Providers Care Ampoule Washing Machine Operator Name Role Phone Matilde Calabrese MD Primary Care Provide r Kourtney Su PharmD Unavailable [phone] Cecily Pinedo RN Unavailable [phone] Encounter Details Date Type Department Care [...] Upcoming Encounters Date Type Department Care Team ([facility] st Contact Info) Description 03/26/2024 9:30 AM EST Medication Management [facility] MED[facility] [address] [place] [address] Kourtney Su, PharmD [address] [place] [address] 05/06/2024 10:00 AM EDT Office Visit [facility] [address] [place] [address] Matilde Calabrese MD [address] [place] [address] 06/03/2024 11:30 AM EDT Office Visit [facility] CHC MED & PEDS [address] [place] [address] Rodger Cole MD [address] [place] [address] documented as of this encounter Visit Diagnoses Not on filedocumented in this encounter Additional Health Concerns Assessment Noted Time PHQ-9 Depression Total Score: 18 024 9:55 AM EST documented as of this encounter Care Teams Ampoule Washing Machine Operator Relationship Specialty Start Date End Date Matilde Calabrese MD [address] [place] [address] PCP - General Internal Medicine 11/23/23 Kourtney Su PharmD [address] [place] [address] Pharmacist Internal Medicine 12/05/23 Cecily Pinedo RN [address] [place] [phone] Tip TesterBoilermaker 01/08/24 [facility] 01/09/24 documented as of this encounter
--- OUTSIDE RECORDS SUMMARY | 2024-03-18 05:51 | XMS_ITS | Encounter Summary ---
Author Organization [employer] Address [address] [facility] [address] [place] [address] Care Team Providers Care Grinding Wheel Facer Name Role Phone Matilde Calabrese MD Primary Care Provide r Kourtney Su PharmD Unavailable [phone] Cecily Pinedo RN Unavailable [phone] Encounter Details Date Type Department Care [...] Upcoming Encounters Date Type Department Care Team ([facility] st Contact Info) Description 03/26/2024 9:30 AM EST Medication Management [facility] [address] [place] [address] Kourtney Su, PharmD [address] [place] [phone] 05/06/2024 10:00 AM EDT Office Visit [facility] [address] [place] [address] Matilde Calabrese MD [address] [place] [address] 06/03/2024 11:30 AM EDT Office Visit [facility] CHC MED & PEDS [address] [place] [address] Rodger Cole MD [address] [place] [address] documented as of this encounter Visit Diagnoses Not on filedocumented in this encounter Additional Health Concerns Assessment Noted Time PHQ-9 Depression Total Score: 18 024 9:55 AM EST documented as of this encounter Care Teams Grinding Wheel Facer Relationship Specialty Start Date End Date Matilde Calabrese MD [address] [place] [address] PCP - General Internal Medicine 11/23/23 Kourtney Su PharmD [address] [place] [address] Pharmacist Internal Medicine 12/05/23 Cecily Pinedo RN [address] [place] [address] Museum SpecialistEthnoarchaeologist 01/08/24 [facility] 01/09/24 documented as of this encounter
--- OUTSIDE RECORDS SUMMARY | 2024-03-18 05:51 | XMS_ITS | Encounter Summary ---
Author Organization [employer] Address [address] [facility] 7t [place] [address] Care Team Providers Care Sociocultural Anthropology Professor Name Role Phone Matilde Calabrese MD Primary Care Provide r Kourtney Su PharmD Unavailable [phone] Cecily Pinedo RN Unavailable [phone] Reason for Visit * Reason Comments Transition Of Care (Tcm) Encounter Details Date Type Department Care Team ([facility] st Contact Info) Description 03/17/2024 Patient Outreach [facility] [address] [place] [address] Matilde Calabrese MD [address] [place] [address] Transition Of Care (Tcm) Social History Tobacco [...] Progress Notes * Pebbles Huston RN - 03/17/2024 9:03 AM EST 03/17/24 0903 Hospital Discharges and Admission for PCM Type of Visit Emergency Department Date of Admission/Visit 03/16/24 Date of Discharge 03/16/24 Facility [facility] Diagnosis Facial Pain, Eye Problem, Headache, unspecified Disposition Discharged Home * Eli Ramsay RN - 03/17/2024 9:03 AM EST Transition of Care Note Raji is going through a recent transition of care. Hospital Discharges and Admission for [facility] Type of Visit: Emergency Department Date of Admission/Visit: 03/16/24 Date of Discharge: 03/16/24 Facility: [facility] Diagnosis: Acute nonintractable headache Disposition: Discharged Home Follow-Up Actions Follow-Up Needed: Specialist appointment Follow-Up Outcome: Spoke to Patient Initial Contact Date: 03/17/24 [facility] Recent Visits Date Type Provider Dept 03/11/24 Office Visit Christian Fuchs MD [facility] Medicine 03/03/24 Office Visit Charity Luna DO [facility] 02/15/24 Office Visit BRITTANY Mott [facility] Med & Peds 02/02/24 Office Visit Wendy Wright NP [facility] 01/08/24 Office Visit Erin Bueno MD [facility] 12/27/23 Office Visit Matilde [place] MD [facility] Medicine 11/14/23 Office Visit Matilde [place] MD [facility] Medicine 03/20/23 Office Visit Matilde [place] MD [facility] Medicine Showing recent visits within past 540 days with a meds authorizing provider and meeting all other requirements Future Appointments Date Type Provider Dept 03/26/24 Appointment Kourtney Su PharmD [facility] Medicine 05/06/24 Appointment Matilde [place] MD [facility] Medicine 06/03/24 Appointment Rodger Cole MD [facility] Med & Peds Showing future appointments within next 150 days with a meds authorizing provider and meeting all other requirements TC placed to patient [phone] to status check. Patient reports he was seen in the ED 03/16/23 for L eye pain and vomiting. Patient reports the vomiting has resolved however the L eye pain continues. Per ED note, patient had a CT scan which showed some inflammation in the mastoid process which could be r/t to his recent surgery or an infection. The ED did not think it was r/t an infection but Rx'd Levaquin out of caution. Patient reports his pain is a 4/10 and reports tylenol does not have any effect on his pain. Patient reports he has not p/u the abx as of yet however he is on his way to the pharmacy to p/u the medication now. Patient reports he does not have a f/u appointment with [facility] as of yet. RN advised patient to call [facility] and notify them of ED visit and of CT scan results and inquire on a f/u POC. Patient verbalized understanding and reports he will call. Patient advised if s/s do not improve to return call to [facility] for an appointment to be re-evaluated once abx are completed. Patient to f/u PRN. documented in this encounter Plan of Treatment Upcoming Encounters Date Type Department Care Team (Late st Contact Info) Description 03/26/2024 9:30 AM EST Medication Management [facility] [address] [place] [phone] Kourtney Su PharmD [address] [place] [address] 05/06/2024 10:00 AM EDT Office Visit [facility] [address] [place] [address] Matilde Calabrese MD [address] [place] [address] 06/03/2024 11:30 AM EDT Office Visit [facility] [address] [place] [address] Rodger Cole MD [address] [place] [address] documented as of this encounter Visit Diagnoses Not on filedocumented in this encounter Additional Health Concerns Assessment Noted Time PHQ-9 Depression Total Score: 18 024 9:55 AM EST documented as of this encounter Care Teams Sociocultural Anthropology Professor Relationship Specialty Start Date End Date Matilde Calabrese MD [address] [place] [address] PCP - General Internal Medicine 11/23/23 Kourtney Su PharmD [address] [place] [address] Pharmacist Internal Medicine 12/05/23 Cecily Pinedo RN [address] [place] [address] Youth Development SpecialistInstructor Hairspring 01/08/24 [facility] 01/09/24 documented as of this encounter
--- OUTSIDE RECORDS SUMMARY | 2024-03-18 05:51 | XMS_ITS | Encounter Summary ---
Author Organization [employer] Address [address] [facility] [address] 7t [place] [address] Care Team Providers Care Bologna Lacer Name Role Phone Matilde Calabrese MD Primary Care Provide r Kourtney Su PharmD Unavailable [phone] Cecily Pinedo RN Unavailable [phone] Encounter Details Date Type Department Care Team (Late st Contact Info) Description 02/22/2024 Telephone [facility] [address] [place], [place] [phone] Kourtney Su, PharmD [address] [place] [address] Social History Tobacco Use Types Packs/Day Years [...] Su PharmD - 02/22/2024 10:11 AM EST [facility] outreached patient for BG check following recent visit for hyperglycemia 02/19/24; patientreported improvement in BG following [facility] visit and that for the past few days BG have been around the 200s and most recent CGM scan was 230mg/dL. Patient stated understanding of upcoming [facility] appointment 02/25/23. documented in this encounter Plan of Treatment Upcoming Encounters Date Type Department Care Team (Late st Contact Info) Description 03/26/2024 9:30 AM EST Medication Management [facility] [address] [place] [address] Kourtney Su PharmD [address] [place] [address] 05/06/2024 10:00 AM EDT Office Visit [facility] [address] [place] [address] Matilde Calabrese MD [address] [place] [address] 06/03/2024 11:30 AM EDT Office Visit [facility] [address] [place] [address] Rodger Cole MD [address] [place], [place] [phone] documented as of this encounter Visit Diagnoses Not on filedocumented in this encounter Additional Health Concerns Assessment Noted Time PHQ-9 Depression Total Score: 18 024 9:55 AM EST documented as of this encounter Care Teams Bologna Lacer Relationship Specialty Start Date End Date Matilde Calabrese MD [address] [place] [address] PCP - General Internal Medicine 11/23/23 Kourtney Su PharmD [address] [place] [address] Pharmacist Internal Medicine 12/05/23 Cecily Pinedo, ROSA [address] [place] [address] Black Studies ProfessorSecondary Spanish Teacher 01/08/24 [facility] 01/09/24 documented as of this encounter
--- OUTSIDE RECORDS SUMMARY | 2024-03-18 05:51 | XMS_ITS | Encounter Summary ---
Author Organization [employer] Address [address] 7t [place] [address] Care Team Providers Care Construction Lineman Name Role Phone Matilde Calabrese MD Primary Care Provide r Kourtney Su PharmD Unavailable [phone] Cecily Pinedo RN Unavailable [phone] Encounter Details Date Type Department Care Team (Late st Contact Info) Description 02/25/2024 Telephone [facility] [address] [place] [address] Cecily Pinedo RN [address] [place] [address] Social History Tobacco Use Types Packs/Day Years [...] referred to [facility] on 01/07/24. CM called [facility] and informed patient was not referred to their office. CM unsure as to where patient was referred to? Please advise so that CM can assist with appt scheduling. Thank you. documented in this encounter Plan of Treatment Upcoming Encounters Date Type Department Care Team (Late st Contact Info) Description 03/26/2024 9:30 AM EST Medication Management [facility] [address] [place] [phone] Kourtney Su, PharmD [address] [place] [address] 05/06/2024 10:00 AM EDT Office Visit [facility] [address] [place] [address] Matilde Calabrese MD [address] [place] [address] 06/03/2024 11:30 AM EDT Office Visit [facility] [address] [place], [place] [phone] Rodger Cole MD [address] [place], [place] [phone] documented as of this encounter Visit Diagnoses Not on filedocumented in this encounter Additional Health Concerns Assessment Noted Time PHQ-9 Depression Total Score: 18 024 9:55 AM EST documented as of this encounter Care Teams Construction Lineman Relationship Specialty Start Date End Date Matilde Calabrese MD [address] [place] [address] PCP - General Internal Medicine 11/23/23 Kourtney Su PharmD [address] [place] [address] Pharmacist Internal Medicine 12/05/23 Cecily Pinedo, ROSA [address] [place] [address] Ocean Freight ForwarderDexigraph Operator 01/08/24 [facility] 01/09/24 documented as of this encounter
--- OUTSIDE RECORDS SUMMARY | 2024-03-18 05:51 | XMS_ITS | Encounter Summary ---
Author Organization [employer] Address [address] [facility] [address] 7[address] [place] [address] Care Team Providers Care Ob/Gyn Name Role Phone Matilde Calabrese MD Primary Care Provide r Kourtney Su PharmD Unavailable [phone] Cecily Pinedo RN Unavailable [phone] Encounter Details Date Type Department Care Team (Late st Contact Info) Description 03/12/2024 Telephone [facility] [address] [place] [address] Cecily Pinedo RN [address] [place] [address] Social History Tobacco Use Types Packs/Day Years [...] was able to talk to Rhina at [facility] pharmacy and states this has been [...] Description 03/26/2024 9:30 AM EST Medication Management [facility] [address] [place] [address] Kourtney Su, PharmD [address] [place] [address] 05/06/2024 10:00 AM EDT Office Visit [facility] [address] [place] [address] Matilde Calabrese MD [address] [place] [address] 06/03/2024 11:30 AM EDT Office Visit [facility] [address] [place], [place] [phone] [place] Cole MD [address] [place], [place] [phone] documented as of this encounter Visit Diagnoses Not on filedocumented in this encounter Additional Health Concerns Assessment Noted Time PHQ-9 Depression Total Score: 18 024 9:55 AM EST documented as of this encounter Care Teams Ob/Gyn Relationship Specialty Start Date End Date Matilde Calabrese MD [address] [place] [address] PCP - General Internal Medicine 11/23/23 Kourtney Su PharmD [address] [place] [address] Pharmacist Internal Medicine 12/05/23 Cecily Pinedo RN [address] [place] [address] Sprinkler Truck DriverOperations Advisor 01/08/24 [facility] 01/09/24 documented as of this encounter
--- OUTSIDE RECORDS SUMMARY | 2024-03-18 05:51 | XMS_ITS | Encounter Summary ---
Author Organization [employer] Address [address] [facility] 7t [place] [address] Care Team Providers Care Novelties Sales Representative Name Role Phone Matilde Calabrese MD Primary Care Provide r Kourtney Su PharmD Unavailable [phone] Cecily Pinedo RN Unavailable [phone] Reason for Visit * Reason Comments Care Coordination Appt reminders Encounter Details Date Type Department Care Team (Latest Contact Info) Description 02/18/2024 Patient Outreach [facility] [address] [place] [address] Matilde Calabrese MD [address] [place] [address] Care Coordination (Appt reminders) Social History Tobacco [...] CHW also sent patient a text messagethrough [employer] for reminder. documented in this encounter Plan of Treatment Upcoming Encounters Date Type Department Care Team (Late st Contact Info) Description 03/26/2024 9:30 AM EST Medication Management [facility] [address] [place] [phone] Kourtney Su, PharmD [address] [place] [address] 05/06/2024 10:00 AM EDT Office Visit [facility] [address] [place], [place] [phone] Matilde Calabrese MD [address] [place] [address] 06/03/2024 11:30 AM EDT Office Visit [facility] [address] [place] [address] Rodger Cole MD 505 [place], [place] [phone] documented as of this encounter Visit Diagnoses Not on filedocumented in this encounter Additional Health Concerns Assessment Noted Time PHQ-9 Depression Total Score: 18 024 9:55 AM EST documented as of this encounter Care Teams Novelties Sales Representative Relationship Specialty Start Date End Date Matilde Calabrese MD [address] [place] [address] PCP - General Internal Medicine 11/23/23 Kourtney Su PharmD [address] [place] [address] Pharmacist Internal Medicine 12/05/23 Cecily Pinedo, ROSA [address] [place] [phone] Battalion Fire ChiefFeedlot Manager 01/08/24 [facility] 01/09/24 documented as of this encounter
--- OUTSIDE RECORDS SUMMARY | 2024-03-18 05:51 | XMS_ITS | Encounter Summary ---
Author Organization [employer] Address [address] [place] [address] Care Team Providers Care Soda Jerker Name Role Phone Matilde Calabrese MD Primary Care Provide r Kourtney Su PharmD Unavailable [phone] Cecily Pinedo RN Unavailable [phone] Encounter Details Date Type Department Care [...] 9:30 AM EST Medication Management [facility] [address] [place] [phone] Kourtney Su, PharmD [address] [place] [address] 05/06/2024 10:00 AM EDT Office Visit [facility] [address] [place] [address] Matilde Calabrese MD [address] [place] [address] 06/03/2024 11:30 AM EDT Office Visit [facility]S [address] [place] [address] Rodger Cole MD [address] [place], [place] [phone] documented as of this encounter Procedures Procedure [...] 11:22 AM EST) Creatinine, Urine 209.68 mg/dL [facility] Microalbumin Urine 52.0 mg/L H [facility] Microalbum Creatinine Ratio Ur 24.7 <30 ug/mg cr [facility] Comment:Albumin/Creatinine R atio Reference Ranges: Normal: < 30 ug/mg creatinine Microalbuminuria: 30 - 300 ug/mg creatinineClinical Albuminuria: > 300 ug/mg creatinine 02/18/2024 11:2 2 AM EST 02/18/2024 1:18 PM EST us Matilde Hudson MD LAB URINE ORDERABLES Final Result Performing Organization Address [facility] Co de Phone Number [facility] [address] [place] [phone] * Phospholipase A2 Receptor (PLA2R) Antibody Panel (02/18/2024 9:45 AM EST) Phospholipase A2 Receptor (PLA2R) Ab, PRACHI <4 RU/mL [facility] Comment:Reference Range: <14 : NEGATIVE 14-19: BORDERLINE >19: POSITIVE Phospholipase A2 Receptor (PLA2R) Ab, IFA NEGATIVE NEGATIVE [facility] Comment:THIS TEST WAS PERFOR MED AT:[id number] [place] [address]HZKPSGRECIA THORPE MD,PHD,LINDA 02/18/2024 9:45 AM EST 02/18/2024 11:11 AM EST us Generic External Data Provider LAB BLOOD ORDERAB LES Final Result Performing Organization Address [facility] Co de Phone Number [facility] [address] [place] [address] [phone] * Proteinase-3 Antibody (02/18/2024 9:45 AM EST) Proteinase-3 Antibody <1.0 AI [facility] Comment:Value Interpretation ----- <1.0 No Antibody Detected > or = 1.0 Antibody DetectedAutoantibodies to proteinase-3 (WY-3) are accepted ascharacteristic for granulomatosis with polyangiitis(GPA, Brianna's), and are detectable in 95% of thehistologically proven cases. The cytoplasmic IFApattern, (c-ANCA), is based largely on autoantibody toPR-3 which serves as the primary antigen.These autoantibodies are present in active disease.THIS TEST WAS PERFORMED AT:[facility] [address] [id number] OWEN MD 02/18/2024 9:45 AM EST 02/18/2024 11:11 AM EST Generic External Data Provider LAB BLOOD ORDERAB LES Final Result Performing Organization Address City/[facility]/ZIP Co de Phone Number [facility] [address] [place] [phone] * Myeloperoxidase Antibody (MPO) (02/18/2024 9:45 AM EST) Myeloperoxidase Antibody <1.0 [facility] Comment:Value Interpretation ----- <1.0 No Antibody Detected > or = 1.0 Antibody DetectedAutoantibodies to myeloperoxidase (MPO) are commonlyassociated with the following small-vesselvasculitides: microscopic polyangiitis,polyarteritis nodosa, Churg-Rafi syndrome,necrotizing and crescentic glomerulonephritis andoccasionally granulomatosis with polyangiitis(GPA, Brianna's). The perinuclear IFA pattern,(p-ANCA) is based largely on autoantibody tomyeloperoxidase which serves as the primary antigen.These autoantibodies are present in active disease.THIS TEST WAS PERFORMED AT:[facility] [address] [address]ANNETTE OWEN MD 02/18/2024 9:45 AM EST 02/18/2024 11:11 AM EST us Generic External Data Provider LAB BLOOD ORDERAB LES Final Result Performing Organization Address City/State/[facility] de Phone Number [facility] [address] [place] [address] [phone] * Glomerular Basement Membrane Antibody (IgG) (02/18/2024 9:45 AM EST) Glomerular Basement Memebrane Antibody (IgG) <1.0 AI [facility] Comment:Value Interpretation ----- <1.0 No Antibody Detected > or = 1.0 Antibody DetectedTHIS TEST WAS PERFORMED AT:[facility] [address] [id number] OWEN MD 02/18/2024 9:45 AM EST 02/18/2024 11:11 AM EST us Generic External Data Provider LAB BLOOD ORDERAB LES Final Result Performing Organization Address [facility] de Phone Number [facility] [address] [place] [phone] * DNA (ds) Antibody (02/18/2024 9:45 AM EST) Anti DNA DS Antibody 1 IU/mL [facility] Comment:IU/mL Interpretation < or = 4 Negative 5-9 Indeterminate > or = 10 PositiveTHIS TEST WAS PERFORMED AT:[facility] [address] [id number] OWEN MD 02/18/2024 9:45 AM EST 02/18/2024 11:11 AM EST us Generic External Data Provider LAB BLOOD ORDERAB LES Final Result Performing Organization Address [facility] de Phone Number [facility] [address] [place] [address] [phone] * (ABNORMAL) Immunofixation, Serum (02/18/2024 9:45 AM EST) IMMUNOGLOBULIN G 1358 600 - 1640 mg/dL [facility] IMMUNOGLOBULIN A 518(A) 47 - 310 mg/dL [facility] Immunoglobulin M 57 50 - 300 mg/dL [facility] Comment:THIS TEST WAS PERFOR MED AT:[facility] [place] [id number] OWEN MD Immunofixation Result SEE NOTE [facility] Comment:Normal pattern. No m onoclonal proteins detected. 02/18/2024 9:45 AM EST 02/18/2024 11:11 AM EST Generic External Data Provider LAB BLOOD ORDERAB LES Final Result Performing Organization Address [facility] Co de Phone Number [facility] [address] [place] [phone] * Complement Component C4c (02/18/2024 9:45 AM EST) Complement C4 20 15 - 53 mg/dL [facility] Comment:THIS TEST WAS PERFOR MED AT:[facility] [place] [id number] OWEN MD 02/18/2024 9:45 AM EST 02/18/2024 11:11 AM EST us Generic External Data Provider LAB BLOOD ORDERAB LES Final Result Performing Organization Address City/[facility]/ZIP Co de Phone Number [facility] [address] [place] [phone] * Complement Component C3c (02/18/2024 9:45 AM EST) Complement C3 166 82 - 185 mg/dL [facility] Comment:THIS TEST WAS PERFOR MED AT:[facility] [address] [phone] OWEN MD 02/18/2024 9:45 AM EST 02/18/2024 11:11 AM EST us Generic External Data Provider LAB BLOOD ORDERAB LES Final Result Performing Organization Address [facility] Co de Phone Number [facility] [address] [place] [phone] * Hepatitis B surface antigen, EIA (02/18/2024 9:45 AM EST) Hepatitis B Surface Ag Negative Negative [facility] 02/18/2024 9:45 AM EST 02/18/2024 11:12 AM EST Generic External Data Provider LAB BLOOD ORDERAB LES Final Result Performing Organization Address [facility] Co de Phone Number [facility] [address] [place] [phone] * Hepatitis C Antibody with Reflex to HCV, RNA, Quantitative, Real-Time PCR (02/18/2024 9:45 AM EST) Hepatitis C Antibody Nonreactive Nonreactive [facility] Comment:Antibodies to HCV no t detected; does not exclude early acuteHCV infection. 02/18/2024 9:45 AM EST 02/18/2024 11:12 AM EST us Generic External Data Provider LAB BLOOD ORDERAB LES Final Result Performing Organization Address [facility] Co de Phone Number [facility] [address] [place] [phone] * Hepatitis B Core Antibody, Total (02/18/2024 9:45 AM EST) Hepatitis B Core Antibody Nonreactive Nonreactive [facility] 02/18/2024 9:45 AM EST 02/18/2024 11:12 AM EST us Generic External Data Provider LAB BLOOD ORDERAB LES Final Result Performing Organization Address [facility] Co de Phone Number [facility] [address] [place] [phone] * (ABNORMAL) Lipid Panel, Standard (02/18/2024 9:45 AM EST) Triglycerides 319(H) <150 mg/dL [facility] Comment:Slight Lipemia.Aury able Triglyceride: less than 150 mg/dLBorderline High Triglyceride 150-199 mg/dLHigh Triglyceride: 200-499 mg/dLVery High Triglyceride: greater than or equal to 5OO mg/dL Cholesterol 176 <200 mg/dL [facility] Comment:Desirable Cholestero l: less than 200 mg/dLBorderline High Cholesterol: 200-239 mg/dLHigh Cholesterol: greater than 239 mg/dL LDL Cholesterol Calculated 75 <100 mg/dL [facility] Comment:Desirable LDL: less than 100 mg/dLNear Optimal/Above Optimal LDL: 110- 129 mg/dLBorderline High LDL: 130-159 mg/dLHigh LDL: 160-189 mg/dLVery High LDL: greater than or equal to 190 mg/dL HDL Cholesterol 38(L) >40 mg/dL [facility] Comment:Desirable HDL: great er than 40 mg/dL Note: This HDL assay may give artificially low results in patients with liver disease. 02/18/2024 9:45 AM EST 02/18/2024 11:12 AM EST us Matilde Hudson MD LAB BLOOD ORDERABLES Final Result [facility] [address] [place] [phone] * (ABNORMAL) Basic Metabolic Panel (02/18/2024 9:45 AM EST) Sodium 133(L) 135 - 145 mmol/L [facility] Potassium 4.4 3.3 - 5.1 mmol/L [facility] Chloride 100 96 - 108 mmol/L [facility] Carbon Dioxide 23 22 - 29 mmol/L [facility] Anion Gap 14 12 - 20 [facility] Urea Nitrogen (BUN) 14 9 - 16 mg/dL [facility] Creatinine, Serum 1.15 0.5 - 1.4 mg/dL [facility] Estimated Glomerular Filt Rate >60 [facility] Comment:Chronic Kidney Disea se: Estimated GFR < 60 mL/min/1.27m3Ttixvi Kidney Disease: Estimated GFR < 15 mL/min/1.73m2 Glucose 464(HH) 60 - 115 mg/dL [facility] Comment:Critical value for Jennifer LAYO: Results called to and read backby: ANTONINO Rodriguez Person calling: HEATHER Date: 02/18/24 Time:1140 Calcium 9.8 8.4 - 10.2 mg/dL [facility] 02/18/2024 9:45 AM EST 02/18/2024 11:12 AM EST us Matilde Hudson MD LAB BLOOD ORDERABLES Final Result Performing Organization Address [facility] de Phone Number [facility] [address] [place] [phone] * (ABNORMAL) Hepatic Function Panel (02/18/2024 9:45 AM EST) Bilirubin, Total 0.4 0.0 - 1.0 mg/dL [facility] Bilirubin, Direct 0.1 0.0 - 0.5 mg/dL [facility] Aspartate Amino Transferase 25 5 - 37 U/L [facility] Alanine Aminotransferase 39 0 - 40 U/L [facility] Total Protein 8.7(H) 6.5 - 8.0 g/dL [facility] Albumin Level 4.8 3.5 - 5.0 g/dL [facility] Alkaline Phosphatase 113 39 - 117 U/L [facility] 02/18/2024 9:45 AM EST 02/18/2024 11:12 AM EST us Matilde Hudson MD LAB BLOOD ORDERABLES Final Result Performing Organization Address [facility] Co de Phone Number [facility] [address] [place] [phone] * Calcium (02/18/2024 9:45 AM EST) Calcium 9.8 8.4 - 10.2 mg/dL [facility] 02/18/2024 9:45 AM EST 02/18/2024 11:12 AM EST us Generic External Data Provider LAB BLOOD ORDERAB LES Final Result Performing Organization Address City/[facility]/ZIP Co de Phone Number [facility] [address] [place] [phone] * BUN (Blood Urea Nitrogen) (02/18/2024 9:45 AM EST) Urea Nitrogen (BUN) 14 9 - 16 mg/dL [facility] 02/18/2024 9:45 AM EST 02/18/2024 11:12 AM EST us Generic External Data Provider LAB BLOOD ORDERAB LES Final Result Performing Organization Address [facility] Co de Phone Number [facility] [address] [place] [phone] documented in this encounter Visit Diagnoses Not on filedocumented in this encounter Additional Health Concerns Assessment Noted Time PHQ-9 Depression Total Score: 18 024 9:55 AM EST documented as of this encounter Care Teams Soda Jerker Relationship Specialty Start Date End Date Matilde Calabrese MD [address] [place] [address] PCP - General Internal Medicine 11/23/23 Kourtney Su PharmD [address] [place] [address] Pharmacist Internal Medicine 12/05/23 Cecily Pinedo RN [address] [place] [phone] Bilingual Patient Support CaseworkerMaterials Scientist 01/08/24 [facility] 01/09/24 documented as of this encounter
--- OUTSIDE RECORDS SUMMARY | 2024-03-18 05:51 | XMS_ITS | Encounter Summary ---
Author Organization [employer] Address [address] [place] [address] Care Team Providers Care Army Helicopter Pilot Name Role Phone Matilde Calabrese MD Primary Care Provide r Kourtney Su PharmD Unavailable [phone] Cecily Pinedo RN Unavailable [phone] Reason for Visit * Reason Onset Date Comments Hyperglycemia 02/19/2024 Encounter Details Date Type Department Care Team (Late st Contact Info) Description 02/19/2024 Telephone [facility] [address] [place] [address] Ileana Jones RN Hyperglycemia Social History Tobacco [...] Description 03/26/2024 9:30 AM EST Medication Management [facility] [address] [place] [phone] Kourtney Su, Samara [address] [place] [address] 05/06/2024 10:00 AM EDT Office Visit [facility] [address] [place] [address] Matilde Calabrese MD [address] [place] [address] 06/03/2024 11:30 AM EDT Office Visit [facility] [address] [place], [place] [phone] Rodger Cole MD [address] [place], [place] [phone] documented as of this encounter Procedures Procedure [...] Media Lot # [id number] Lot# Expiration Date ,018 Blood Capillary blood specimen / Unknown 02/19/2024 12:57 PM EST Christian Fuchs MD POINT OF CARE TEST EN TER/EDIT ORDERABLES Final Result * (ABNORMAL) POCT Glucose (02/19/2024 12:17 PM EST) Glucose Blood, POC 431(A) 60 - 200 mg/dL QC Media Lot # [id number] Lot# Expiration Date [id number] Blood Capillary blood specimen / Unknown 02/19/2024 [...] Media Lot # [id number] Lot# Expiration Date Urine 02/19/2024 11:2 2 AM EST us Christian Fuchs MD POINT OF CARE TEST EN TER/EDIT ORDERABLES Final Result documented in this encounter Visit Diagnoses Diagnosis Hyperglycemia Other abnormal glucose documented in this encounter Additional Health Concerns Assessment Noted Time PHQ-9 Depression Total Score: 18 024 9:55 AM EST documented as of this encounter Care Teams Army Helicopter Pilot Relationship Specialty Start Date End Date Matilde Calabrese MD [address] [place] [address] PCP - General Internal Medicine 11/23/23 Kourtney Su PharmD [address] [place] [address] Pharmacist Internal Medicine 12/05/23 Cecily Pinedo, ROSA [address] [place] [phone] Licensed Professional CounselorCommunity Health Nurse 01/08/24 [facility] 01/09/24 documented as of this encounter
--- OUTSIDE RECORDS SUMMARY | 2024-03-18 05:52 | XMS_ITS | Clinical Summary ---
Author Organization [facility] Address [address] [place] [address] Phone Care Team Providers Care Chicken Catcher Name Role Phone Matilde Calabrese MD Primary Care Provide r Allergies Active Allergy Reactions Criticality Noted Date Comments Ibuprofen Renal Impairment 12/24/2023 Iodinated Contrast Media Renal Impairment 12/23 Medications Medication Sig Dispensed Refills Start Date End Date Status amoxicillin-clavu lanate (Augmentin) 875-125 mg per tablet Take 1 tablet by mouth 2 (two) times a day. 20 tablet 03/11/2024 Active levoFLOXacin (LEVAQUIN) 500 mg tablet Take 1 tablet (500 mg total) by mouth 1 (one) time each day for 7 days. 7 tablet 03/16/2024 03/23/2024 Active clotrimazole (LOTRIMIN) 1 % external solution Apply topically 2 (two) times a day. Apply to nails and skin 30 mL 2 01/10/2024 03/06/2024 Additional Information Patient not taking.Reported on 02/04/2024 Active Problems Problem Noted Date Diagnosed Date Sleep apnea Encounters Date Type Department Care Team Description 03/16/2024 12:17 PM EST - 03/16/2024 6:31 PM EST Emergency [facility] Emergency [address] [place] [address] Eloise Garber DO Patel, Parth B, MD Acute nonintractable headache, unspecified headache type (Primary Dx) Discharge Disposition: Home or Self Care 03/11/2024 8:45 AM EST Office Visit Orthopedic Surgery [facility] 250 175 [facility] [address] [place] [phone] Elias Agee, DPM Cellulitis of left foot (Primary Dx); Dermatophytosis of nail; Ingrowing nail; Diabetic mononeuropathy simplex (CMS/HCC); Pain in toe of left foot; Pain in toe of right foot 03/09/2024 10:05 PM EST - 03/10/2024 1:[address] [facility] Emergency [address] [place] [phone] Ocular migraine (Primary Dx) Discharge Disposition: Home or Self Care 03/07/2024 9:30 AM EST Clinical Support [address] [phone] Visit for suture removal (Primary Dx) 02/22/2024 10:30 AM EST Procedure visit [address] [phone] Nic Nieto MD Epidermal inclusion cyst (Primary Dx) 02/06/2024 1:39 PM EST - 02/06/2024 8:10 PM EST [address] [phone] MD Rhinovirus (Primary Dx); Cellulitis of neck Discharge Disposition: Home or Self Care 02/04/2024 2:00 PM EST Office Visit [address] [phone] Nic Nieto MD Inflamed epidermoid cyst of skin (Primary Dx); Type 2 diabetes mellitus without complication, with long-term current use of insulin (CMS/[facility]); Smoking 02/04/2024 9:49 AM EST - 02/04/2024 10:[address] [facility] Emergency [address] [place] [phone] Cellulitis of neck (Primary Dx) Discharge Disposition: Home or Self Care 01/30/2024 10:29 PM EST - 01/31/2024 4:[address] [facility] Emergency [address] [place] [phone] Neck pain on right side (Primary Dx) Discharge Disposition: Home or Self Care 01/26/2024 12:09 PM EST - 01/26/2024 3:[address] [facility] Emergency [address] [place] [phone] Lumbar strain, initial encounter (Primary Dx) Discharge Disposition: Home or Self Care 01/10/2024 10:30 AM EST Office Visit Orthopedic Surgery [facility] [address] [place] [phone] Elias Agee, DPM Ingrowing nail (Primary Dx); Dermatophytosis of nail; Diabetic mononeuropathy simplex (CMS/HCC); Pain in toe of left foot; Pain in toe of right foot 12/24/2023 7:17 PM EST - 12/25/2023 1:[address] [facility] Emergency [address] [place] [phone] Diabetic infection of right foot (CMS/HCC) (Primary Dx) Discharge Disposition: Home or Self Care from Last 3 Months Surgical History Surgery Date Site/Laterality Comments OTHER SURGICAL HISTORY 04/16/2023 Left PROCEDURE: FL I&D BELOW FASCIA FOOT 1 BURSAL SPACE OTHER SURGICAL HISTORY 04/18/2023 Left PROCEDURE: FL INCISION BONE CORTEX FOOT; COMMENT: left, distal hallux OTHER SURGICAL HISTORY 04/18/2023 PROCEDURE: FL REPAIR INTERMEDIATE N/H/F/XTRNL GENT 2.5CM/< TOE SURGERY [...] Sign Reading Time Taken Comments Blood Pressure 136/101 03/16/2024 5:19 PM EST Pulse 81 03/16/2024 5:19 PM EST Temperature 36.9 ??C (98.4 ??F) 03/16/2024 5:19 PM ES T Respiratory Rate 18 03/16/2024 5:19 PM EST Oxygen Saturation 97% 03/16/2024 5:19 PM EST Inhaled Oxygen Concentration - - Weight 127 kg (280 lb) 03/16/2024 8:45 AM EST Height 172.7 cm (5' 8 ) 03/16/2024 8:45 AM EST Body Mass Index 42.57 03/16/2024 8:45 AM EST Plan of Treatment Upcoming Encounters Date Type Department Care Team (Late st Contact Info) Description 03/25/2024 8:15 AM EST Office Visit Orthopedic Surgery - [place] [phone] [phone] Elias Agee, DPM [address] [phone] Health Maintenance Due Date Last Done Comments Diabetes: Annual Foot Exam 1996 HIV Screening 01/22/2022 Social Influencers of Health Screening 01/22/2022 COVID-19 Vaccine ( season) 2023 04/09/2020, 03/12/2020 Diabetes: Annual Urine Albumin-Creatinine Ratio (uACR) 12/25/2023 07/25/2022 Hepatitis B Vaccines (3 of 3 - 19+ 3-dose series) 06/04/2024 02/18/2024, 12/05/2023 Diabetes: Blood Sugar Control Test (HGBA1C) 08/18/2024 02/18/2024, 11/14/2023 Depression Screening 12/26/2024 12/27/2023 Diabetes: Annual Retina Eye Exam 03/12/2025 03/12/2024 Diabetes: Annual GFR (Glomerular Filtration Rate) 03/16/2025 03/16/2024, 03/12/2024, 02/18/2024, Additional history exists Hypertension/CHF/CAD Annual BMP Blood Test 03/16/2025 03/16/2024, 03/12/2024, 02/18/2024, Additional history exists DTaP,Tdap,and Td Vaccines (3 [...] Procedure Name Priority Date/Time Associated Diagnosis Comments RESPIRATORY VIRUS PANEL MOLECULAR STUDY STAT 03/16/2024 2:[address] HEAD WO CONTRAST STAT 03/16/2024 2 :11 PM EST TRIIODOTHYRONINE FREE STAT 03/16/2024 10:42 AM EST FREE THYROXINE WITH REFLEX TO FREE TRIIODOTHYRONINE STAT 03/16/2024 10:42 AM EST THYROID STIMULATING HORMONE WITH REFLEX TO FREE T4 AND FREE T3 STAT Add-on 03/16/2024 10:42 AM EST CBC WITH AUTO DIFFERENTIAL STAT 03/16/2024 10:42 AM EST LACTATE, WITH REFLEX STAT 03/16/2024 10:42 AM EST LIPASE STAT 03/16/2024 10:42 AM EST COMPREHENSIVE METABOLIC PANEL STAT 03/16/2024 10:42 AM EST CBC AND DIFFERENTIAL STAT 03/16/2024 10:42 AM EST SUTURE REMOVAL Routine 03/07/2024 9:41 AM EST [...] EST from Last 3 Months Results * Respiratory virus panel molecular study (03/16/2024 2:28 PM EST) Only the most recent of2 resultswithin the time period is included. Pathologist [facility] Adenovirus Detection by PCR Not Detected Not Detected LAB MICROBIOLOGY METHOD 03/16/2024 3:[address] [facility] Influenza A PCR Not Detected Not Detected LAB MICROBIOLOGY METHOD 03/16/2024 3:[address] [facility] Influenza B PCR Not Detected Not Detected LAB MICROBIOLOGY METHOD 03/16/2024 3:[address] [facility] Coronavirus 229E Not Detected Not Detected LAB MICROBIOLOGY METHOD 03/16/2024 3:55 PM EST [facility] Coronavirus HKU1 Not Detected Not Detected LAB MICROBIOLOGY METHOD 03/16/2024 3:55 PM EST [facility] Coronavirus OC43 Not Detected Not Detected LAB MICROBIOLOGY METHOD 03/16/2024 3:[address] [facility] Coronavirus NL63 Not Detected Not Detected LAB MICROBIOLOGY METHOD 03/16/2024 3:55 PM EST [facility] Parainfluenza Virus 1 Not Detected Not Detected LAB MICROBIOLOGY METHOD 03/16/2024 3:[address] [facility] Parainfluenza Virus 2 Not Detected Not Detected LAB MICROBIOLOGY METHOD 03/16/2024 3:[address] [facility] Parainfluenza Virus 3 Not Detected Not Detected LAB MICROBIOLOGY METHOD 03/16/2024 3:[address] [facility] Parainfluenza Virus 4 Not Detected Not Detected LAB MICROBIOLOGY METHOD 03/16/2024 3:55 PM EST [facility] RSV PCR Not Detected Not Detected LAB MICROBIOLOGY METHOD 03/16/2024 3:55 PM EST [facility] Human Metapneumovirus A and B Not Detected Not Detected LAB MICROBIOLOGY METHOD 03/16/2024 3:55 PM EST [facility] Rhinovirus/Entero virus Not Detected Not Detected LAB MICROBIOLOGY METHOD 03/16/2024 3:55 PM EST [facility] Bordetella pertussis Not Detected Not Detected LAB MICROBIOLOGY METHOD 03/16/2024 3:55 PM EST [facility] Bordetella parapertussis Not Detected Not Detected LAB MICROBIOLOGY METHOD 03/16/2024 3:55 PM EST [facility] Mycoplasma pneumo by PCR Not Detected Not Detected LAB MICROBIOLOGY METHOD 03/16/2024 3:55 PM EST [facility] Chlamydia pneumoniae Not Detected Not Detected LAB MICROBIOLOGY METHOD 03/16/2024 3:55 PM EST [facility] SARS COV-2 Not Detected Not Detected LAB MICROBIOLOGY METHOD 03/16/2024 3:55 PM EST [facility] Swab Both anterior nares / Unknown Non-blood Collection / Unknown 03/16/2024 2:28 PM EST 03/16/2024 2:51 PM EST [facility] - 03/16/2024 3:55 PM EST Testing was performed using the Biofire Respiratory Pathogen PCR Assay. All results must [...] that are below the limit of detection. Rosa WADE LAB MICROBIOLO GY - GENERAL ORDERABLES [facility] [address] [place] [address], * CT Head wo Contrast (03/16/2024 2:11 PM EST) Anatomical Region Laterality Modality Head and Neck Computed Tomogra phy 03/16/2024 2:30 PM EST Impressions 03/16/2024 2:32 PM EST Impression: 1. No significant intracranial abnormality identified. 2. Partial opacification of the mastoid air cells, likely infectious/[place] ([id number]) -------- FINAL REPORT -------- Dictated By: Edilma Camara Dictated Date: 03/16/2024 14:30 ET Assigned Physician: Edilma Camara Reviewed and Electronically Signed By: Edilma Camara Signed Date: 03/16/2024 14:32 ET Workstation ID: [id number] Transcribed By: Self Edit Transcribed Date: 03/16/2024 14:30 ET Narrative 03/16/2024 2:32 PM EST History: Headache. Classic migraine. Comparison: No comparison imaging at this institution. Technique: Contiguous axial images were obtained at 2.5 mm intervals through the posterior fossa and at 5 mm intervals through the remainder of the head without intravenous contrast. DLP: 900.99 mGy/cm GE WeLinkpeed VCT Iterative reconstruction technique Findings: The ventricular system is normal in size and configuration. No focal areas of abnormal brain parenchymal attenuation are seen. No abnormal intra or extra- axial masses or fluid collections are demonstrated. There is no evidence of acute intracranial hemorrhage. Minimal mucoperiosteal thickening is seen in the sphenoid sinus. There is extensive partial opacification of the right mastoid air cells, without bone destruction or air-fluid levels, likely infectious/inflammatory. Minimal partial opacification of the left mastoid air cells is seen. The calvarium is intact. Procedure Note Edilma Camara MD - 03/16/2024 History: Headache. Classic migraine. Comparison: No comparison imaging at this institution. Technique: Contiguous axial images were obtained at 2.5 mm intervalsthrough the posterior fossa and at 5 mm intervals through the remainder ofthe head without intravenous contrast. DLP: 900.99 mGy/cm GE WeLinkpeed VCT Iterative reconstruction technique Findings: The ventricular system is normal in size and configuration. No focal areasof abnormal brain parenchymal attenuation are seen. No abnormal intra orextra-axial masses or fluid collections are demonstrated. There is noevidence of acute intracranial hemorrhage. Minimal mucoperiosteal thickening is seen in the sphenoid sinus. There isextensive partial opacification of the right mastoid air cells, withoutbone destruction or air-fluid levels, likely infectious/inflammatory.Minimal partial opacification of the left mastoid air cells is seen. Thecalvarium is intact. IMPRESSION: Impression: 1. No significant intracranial abnormality identified. 2. Partial opacification of the mastoid air cells, likelyinfectious/inflammatory. Telelv WADE ([id number]) -------- FINAL REPORT -------- Dictated By: Edilma Camara Dictated Date: 03/16/2024 14:30 ET Assigned Physician: Edilma Camara Reviewed and Electronically Signed By: Edilma Camara Signed Date: 03/16/2024 14:32 ET Workstation ID: [id number] Transcribed By: Self Edit Transcribed Date: 03/16/2024 14:30 ET Rosa WADE IMG CT PROCEDU RES * Lactate, with reflex (03/16/2024 10:42 AM EST) [facility] LACTIC ACID 1.1 0.4 - 2.0 mmol/L LAB CHEMISTRY METHOD 03/16/2024 11:42 AM EST [facility] Blood Venous blood specimen / Unknown Venipuncture / Unknown 03/16/2024 10:42 AM EST 03/16/2024 11:06 AM EST Eloise Garber DO LAB BLOOD ORDERAB LES [facility] [address] [place] [address], * (ABNORMAL) Thyroid stimulating hormone with reflex to free t4 and free t3 (TSH Reflex) (03/16/2024 10:42 AM EST) TSH 4.77(H) 0.40 - 4.00 mcIU/mL LAB CHEMISTRY METHOD 03/16/2024 2:53 PM EST [facility] Blood Venous blood specimen / Unknown Venipuncture / Unknown 03/16/2024 10:42 AM EST 03/16/2024 10:52 AM EST Rosa NiShayleeCoreen PA LAB BLOOD ORDIain MACHADO Performing Organization Address [facility]/ZIP Co de Phone Number [facility] [address] [place] [address], * Free thyroxine with reflex to free triiodothyronine (03/16/2024 10:42 AM EST) Pathologist [facility] Free T4 1.29 0.70 - 1.80 ng/dL LAB CHEMISTRY METHOD 03/16/2024 3:21 PM EST [facility] Blood Venous blood specimen / Unknown Venipuncture / Unknown 03/16/2024 10:42 AM EST 03/16/2024 10:52 AM EST Rosa HyYisel WADE LAB BLOOD RAJ MACHADO Performing Organization Address [facility]/ZIP Co de Phone Number [facility] [address] [place] [address], * (ABNORMAL) CBC auto differential (03/16/2024 10:42 AM EST) Only the most recent of5 resultswithin the time period is included. WBC 11.3(H) 4.8 - 10.8 K/[facility] LAB HEMETOLOGY METHOD 03/16/2024 10:57 AM EST [facility] RBC 4.70 4.50 - 5.50 M/mcL LAB HEMETOLOGY METHOD 03/16/2024 10:57 AM EST [facility] Hemoglobin 14.1 13.5 - 17.5 g/dL LAB HEMETOLOGY METHOD 03/16/2024 10:[address] [facility] Hematocrit 40.5(L) 42.0 - 54.0 % LAB HEMETOLOGY METHOD 03/16/2024 10:[address] [facility] MCV 86.0 79.0 - 98.0 FL LAB HEMETOLOGY METHOD 03/16/2024 10:[address] [facility] MCH 29.9 27.0 - 32.0 pcg LAB HEMETOLOGY METHOD 03/16/2024 10:[address] [facility] MCHC 34.8 32.0 - 37.0 g/dL LAB HEMETOLOGY METHOD 03/16/2024 10:[address] [facility] RDW 11.9 11.0 - 15.0 % LAB HEMETOLOGY METHOD 03/16/2024 10:[address] [facility] Platelets 323 130 - 400 K/mcL LAB HEMETOLOGY METHOD 03/16/2024 10:[address] [facility] MPV 9.9 7.0 - 11.0 FL LAB HEMETOLOGY METHOD 03/16/2024 10:[address] [facility] NRBC 0.0 <1.0 % LAB HEMETOLOGY METHOD 03/16/2024 10:[address] [facility] NRBC Absolute 0.00 <0.10 K/mcL LAB HEMETOLOGY METHOD 03/16/2024 10:[address] [facility] Neutrophils Relative 65.0 % LAB HEMETOLOGY METHOD 03/16/2024 10:[address] [facility] Lymphocytes Relative 24.6 % LAB HEMETOLOGY METHOD 03/16/2024 10:[address] [facility] Monocytes Relative 6.4 % LAB HEMETOLOGY METHOD 03/16/2024 10:[address] [facility] Eosinophils Relative 2.7 % LAB HEMETOLOGY METHOD 03/16/2024 10:57 AM EST [facility] Basophils Relative 0.9 % LAB HEMETOLOGY METHOD 03/16/2024 10:57 AM EST [facility] Immature Granulocytes Relative 0.4 % LAB HEMETOLOGY METHOD 03/16/2024 10:57 AM EST [facility] Neutrophils Absolute 7.36(H) 1.50 - 7.00 K/mcL LAB HEMETOLOGY METHOD 03/16/2024 10:57 AM EST [facility] Lymphocytes Absolute 2.79 1.00 - 5.00 K/mcL LAB HEMETOLOGY METHOD 03/16/2024 10:57 AM EST [facility] Monocytes Absolute 0.72 0.20 - 1.00 K/mcL LAB HEMETOLOGY METHOD 03/16/2024 10:57 AM EST [facility] Eosinophils Absolute 0.31 0.00 - 0.50 K/mcL LAB HEMETOLOGY METHOD 03/16/2024 10:57 AM EST [facility] Basophils Absolute 0.10 0.00 - 0.20 K/mcL LAB HEMETOLOGY METHOD 03/16/2024 10:57 AM EST [facility] Immature Granulocytes Absolute 0.04(H) 0.00 - 0.03 K/mcL LAB HEMETOLOGY METHOD 03/16/2024 10:57 AM EST [facility] Blood Venous blood specimen / Unknown Venipuncture / Unknown 03/16/2024 10:42 AM EST 03/16/2024 10:52 AM EST Eloise Garber DO LAB BLOOD ORDERAB LES [facility] [address] [place] [address], * Triiodothyronine free (03/16/2024 10:42 AM EST) T3, Free 328 230 - 420 pcg/dL LAB CHEMISTRY METHOD 03/16/2024 3:49 PM EST [facility] Blood Venous blood specimen / Unknown Venipuncture / Unknown 03/16/2024 10:42 AM EST 03/16/2024 10:52 AM EST Rosa WADE LAB BLOOD ORDE RABSTEPHANIE [facility] [address] [place] [address], [place] [phone] * Lipase (03/16/2024 10:42 AM EST) Only the most recent of2 resultswithin the time period is included. [facility] Lipase 38 13 - 75 unit/L LAB CHEMISTRY METHOD 03/16/2024 11:31 AM EST [facility] Blood Venous blood specimen / Unknown Venipuncture / Unknown 03/16/2024 10:42 AM EST 03/16/2024 10:52 AM EST Eloise Garber DO LAB BLOOD ORDERAB LES Performing Organization Address [facility]/ZIP Co de Phone Number [facility] [address] [place] [address], [place] [phone] * (ABNORMAL) Comprehensive metabolic panel (03/16/2024 10:42 AM EST) Only the most recent of3 resultswithin the time period is included. [facility] Sodium 133 133 - 145 mmol/L LAB CHEMISTRY METHOD 03/16/2024 11:33 AM EST [facility] Potassium 4.3 3.5 - 5.5 mmol/L LAB CHEMISTRY METHOD 03/16/2024 11:33 AM EST [facility] Chloride 102 96 - 110 mmol/L LAB CHEMISTRY METHOD 03/16/2024 11:33 AM EST [facility] CO2 29 21 - 32 mmol/L LAB CHEMISTRY METHOD 03/16/2024 11:[address] [facility] Anion Gap 2(L) 3 - 11 LAB CHEMISTRY METHOD 03/16/2024 11:[address] [facility] Glucose 201(H) 70 - 100 mg/dL LAB CHEMISTRY METHOD 03/16/2024 11:[address] [facility] BUN 14 5 - 25 mg/dL LAB CHEMISTRY METHOD 03/16/2024 11:[address] [facility] Creatinine 0.97 0.70 - 1.30 mg/dL LAB CHEMISTRY METHOD 03/16/2024 11:[address] [facility] eGFR 103 >=60 mL/min/1. 73m2 LAB CHEMISTRY METHOD 03/16/2024 11:[address] [facility] Comment:Calculation based on the??Chronic Kidney Disease Epidemiology Collaboration (CKD-EPI) equation refit??without adjustment for race. BUN/Creatinine Ratio 14.4 LAB CHEMISTRY METHOD 03/16/2024 11:[address] [facility] Calcium 9.8 8.5 - 10.5 mg/dL LAB CHEMISTRY METHOD 03/16/2024 11:[address] [facility] AST (SGOT) 15 10 - 42 unit/L LAB CHEMISTRY METHOD 03/16/2024 11:[address] [facility] ALT (SGPT) 25 10 - 60 unit/L LAB CHEMISTRY METHOD 03/16/2024 11:[address] [facility] Alkaline Phosphatase 81 42 - 121 unit/L LAB CHEMISTRY METHOD 03/16/2024 11:[address] [facility] Total Protein 8.6(H) 6.0 - 8.0 g/dL LAB CHEMISTRY METHOD 03/16/2024 11:[address] [facility] Albumin 4.5 3.2 - 5.0 g/dL LAB CHEMISTRY METHOD 03/16/2024 11:[address] [facility] Total Bilirubin 0.6 0.0 - 1.4 mg/dL LAB CHEMISTRY METHOD 03/16/2024 11:33 AM EST [facility] Blood Venous blood specimen / Unknown Venipuncture / Unknown 03/16/2024 10:42 AM EST 03/16/2024 10:52 AM EST Eloise Garber DO LAB BLOOD ORDERAB LES [facility] [address] [place] [address], * SUTURE REMOVAL (03/07/2024 9:41 AM EST) Narrative Jeanette Lara MA - 03/07/2024 9:41 AM EST Jeanette Lara MA ? 03/07/2024 ??9:41 AM Suture Removal Date/Time: 03/07/2024 9:41 AM Performed by: Jeanette Lara MA Authorized by: Nic Nieto MD ?? Consent: ??Consent obtained: ??Verbal ??Consent given by: ??Patient ??Alternatives discussed: ??No treatment [place] protocol: ??Patient identity confirmed: ??Verbally with patient Location: ??Location: ??Head/neck ??Head/neck location: ??Neck Procedure details: ??Wound appearance: ??No signs of infection and good wound healing Post-procedure details: ??Post-removal: ??No dressing applied ??Procedure completion: ??Tolerated Nic Nieto MD IN CLINIC/BEDSIDE OR DERABLES * Tissue Exam (02/22/2024 10:50 AM EST) Final Diagnosis Skin, right neck-biopsy: -EPIDERMAL INCLUSION CYST, RUPTURED 02/26/2024 12:45 PM EST [facility] Clinical Information Epidermal inclusion cyst L72.0 02/26/2024 12:45 PM EST [facility] Gross Description A. Neck, right neck: Labeled neck . Received in formalin is a 1.4 x 0.3 cm rudd-brown skin ellipse excised with depth of 0.8 cm. The cut surfaces display a 0.3 cm possible cyst containing a rudd-yellow friable substance. Advertising Account Manager sections are submitted in one cassette, to include the entirety of the possible cyst, three pieces. MARLEY 02/26/2024 12:45 PM EST [facility] Disclaimer Unless otherwise specified, all tissue is 10% NB formalin fixed and paraffin embedded. 02/26/2024 12:45 PM EST [facility] Tissue Neck structure / Unknown Non-blood Collection / Unknown 02/22/2024 10:50 AM EST 02/22/2024 11:21 AM EST Nic Nieto MD LAB PATHOLOGY ORDERA BLES Performing Organization Address [facility]/ZIP Co de Phone Number [facility] [address] [place] [address], * (ABNORMAL) POCT Glucose, blood (02/06/2024 5:29 PM EST) Only the most recent of4 resultswithin the time period is included. Glucose POCT 277(H) 70 - 100 mg/dL 02/06/2024 5:30 PM EST [facility] Blood Capillary blood specimen / Unknown 02/06/2024 5:29 PM EST 02/06/2024 5:[address] MD LAB POINT OF CARE TE ST DOCKED DEVICE UNSOLICITED RESULTS Performing Organization Address City/[facility]/ZIP Co de Phone Number [facility] [address] [place] [address], [place] [phone] * (ABNORMAL) Lactate (02/06/2024 4:23 PM EST) Lactate 3.0(H) 0.4 - 2.0 mmol/L LAB CHEMISTRY METHOD 02/06/2024 5:03 PM EST [facility] Blood Venous blood specimen / Unknown Venipuncture / Unknown 02/06/2024 4:23 PM EST 02/06/2024 4:[address] MD LAB BLOOD ORDERABLES [facility] [address] [place] [address], * CT Abdomen Pelvis wo Contrast (02/06/2024 [...] Signed Date: 02/06/2024 16:08 ET Workstation ID: [id number] Transcribed By: Self Edit Transcribed Date: 02/06/2024 [...] a punctate nonobstructing lower pole right renal kdzoujem60.1 cm from the skin. GASTROINTESTINAL TRACT: No [...] Signed Date: 02/06/2024 16:08 ET Workstation ID: [id number] Transcribed By: Self Edit Transcribed Date: 02/06/2024 16:[address] MD IMG CT PROCEDURES * (ABNORMAL) Urinalysis with reflex microscopic (02/06/2024 7:28 AM EST) Specific [place] Urine 1.031(H) 1.003 - 1.030 LAB URINALYSIS - AUTOMATED METHOD 02/06/2024 7:[address] [facility] pH, Urine 6.5 5.0 - 8.0 pH LAB URINALYSIS - AUTOMATED METHOD 02/06/2024 7:[address] [facility] Leukocytes, Urine Negative Negative LAB URINALYSIS - AUTOMATED METHOD 02/06/2024 7:[address] [facility] Nitrite, Urine Negative Negative LAB URINALYSIS - AUTOMATED METHOD 02/06/2024 7:[address] [facility] Protein, Urine 30(A) <=Trace mg/dL LAB URINALYSIS - AUTOMATED METHOD 02/06/2024 7:[address] [facility] Glucose, Urine >=1000(A) Negative mg/dL LAB URINALYSIS - AUTOMATED METHOD 02/06/2024 7:[address] [facility] Ketones, Urine Trace(A) Negative mg/dL LAB URINALYSIS - AUTOMATED METHOD 02/06/2024 7:[address] [facility] Urobilinogen , Urine 1.0 0.2 - 1.0 mg/dL LAB URINALYSIS - AUTOMATED METHOD 02/06/2024 7:[address] [facility] Bilirubin, Urine Negative Negative LAB URINALYSIS - AUTOMATED METHOD 02/06/2024 7:[address] [facility] Blood, Urine Negative Negative LAB URINALYSIS - AUTOMATED METHOD 02/06/2024 7:[address] [facility] RBC, Urine 6.4(H) 0 - 4 /HPF LAB URINALYSIS - AUTOMATED METHOD 02/06/2024 7:[address] [facility] WBC, Urine 1.6 0 - 4 /HPF LAB URINALYSIS - AUTOMATED METHOD 02/06/2024 7:[address] [facility] Squamous Epithelial, Urine 33 0 - 60 /LPF LAB URINALYSIS - AUTOMATED METHOD 02/06/2024 7:[address] [facility] Bacteria, Urine Negative Negative /HPF LAB URINALYSIS - AUTOMATED METHOD 02/06/2024 7:[address] [facility] Hyaline Casts, Urine 0.4 0 - 3 /LPF LAB URINALYSIS - AUTOMATED METHOD 02/06/2024 7:[address] [facility] Urine Urine specimen obtained by clean catch procedure / Unknown Non-blood Collection / Unknown 02/06/2024 7:28 AM EST 02/06/2024 7:46 AM EST Lamonte Humphreys MD LAB URINE ORDERABLES [facility] [address] [place] [address], * Menard urine culture tube (02/06/2024 7:26 AM EST) Extra Tube Hold for add-ons. 02/06/2024 9:[address] [facility] Comment:Auto resulted. Urine Urine specimen obtained by clean catch procedure / Unknown 02/06/2024 7:26 AM EST 02/06/2024 7:53 AM EST Lamonte Humphreys MD LAB URINE ORDERABLES Performing Organization Address [facility]/ZIP Co de Phone Number [facility] [address] [place] [address], [place] [phone] * Beta hydroxybutyrate (02/06/2024 7:25 AM EST) Beta-Hydroxybu tyrate 2.1 0.2 - 2.8 mg/dL LAB CHEMISTRY METHOD 02/06/2024 8:17 AM EST [facility] Blood Venous blood specimen / Unknown Venipuncture / Unknown 02/06/2024 7:25 AM EST 02/06/2024 7:47 AM EST Lamonte Humphreys MD LAB BLOOD ORDERABLES Performing Organization Address City/[facility]/ZIP Co de Phone Number [facility] [address] [place] [address], [place] [phone] * (ABNORMAL) Sedimentation rate, automated (02/06/2024 7:25 AM EST) Only the most recent of2 resultswithin the time period is included. Sed Rate 27(H) 0 - 15 mm/hr LAB HEMETOLOGY METHOD 02/06/2024 2:50 PM EST [facility] Blood Venous blood specimen / Unknown Venipuncture / Unknown 02/06/2024 7:25 AM EST 02/06/2024 7:[address] MD LAB BLOOD ORDERABLES Performing Organization Address City/[facility]/ZIP Co de Phone Number [facility] [address] [place] [address], [place] [phone] * (ABNORMAL) C-reactive protein (02/06/2024 7:25 AM EST) Only the most recent of2 resultswithin the time period is included. C-Reactive Protein 0.80(H) <=0.50 mg/dL LAB CHEMISTRY METHOD 02/06/2024 3:27 PM EST [facility] Blood Venous blood specimen / Unknown Venipuncture / Unknown 02/06/2024 7:25 AM EST 02/06/2024 7:[address] MD LAB BLOOD ORDERABLES Performing Organization Address [facility] Co de Phone Number [facility] [address] [place] [address], * (ABNORMAL) Osmolality (02/06/2024 7:25 AM EST) Osmolality Kristine 304(H) 280 - 300 mOsm/kg LAB CHEMISTRY METHOD 02/06/2024 8:55 AM EST [facility] Blood Venous blood specimen / Unknown Venipuncture / Unknown 02/06/2024 7:25 AM EST 02/06/2024 7:47 AM EST Lamonte Humphreys MD LAB BLOOD ORDERABLES Performing Organization Address [facility] de Phone Number [facility] [address] [place] [address], [place] [phone] * (ABNORMAL) Magnesium (02/06/2024 7:25 AM EST) Magnesium 1.7(L) 1.9 - 2.6 mg/dL LAB CHEMISTRY METHOD 02/06/2024 8:17 AM EST [facility] Blood Venous blood specimen / Unknown Venipuncture / Unknown 02/06/2024 7:25 AM EST 02/06/2024 7:47 AM EST Lamonte Humphreys MD LAB BLOOD ORDERABLES [facility] [address] [place] [address], * (ABNORMAL) Venous blood gas (02/06/2024 7:25 AM EST) pH, Terence 7.47(H) 7.32 - 7.42 pH 02/06/2024 7:50 AM EST [facility] pCO2, Terence 36(L) 41 - 51 mmHg 02/06/2024 7:50 AM EST [facility] pO2, Terence 35 25 - 40 mmHg 02/06/2024 7:50 AM EST [facility] HCO3, Venous 26.2(H) 22.0 - 26.0 mmol/L 02/06/2024 7:50 AM EST [facility] O2 Sat, Terence 70.6 % 02/06/2024 7:50 AM EST [facility] Base Excess, Terence 2.7(H) -2.0 - 2.0 mmol/L 02/06/2024 7:50 AM EST [facility] Blood Venous blood specimen / Unknown Venipuncture / Unknown 02/06/2024 7:25 AM EST 02/06/2024 7:47 AM EST Scot Radha Humphreys MD LAB BLOOD ORDERABLES [facility] [address] [place] [address], * CT Neck Soft Tissue w Contrast [...] Mosley MD on 01/31/2024 02:57:07 Nikole WADE [facility] PROCEDURES * (ABNORMAL) Basic metabolic panel (01/31/2024 12:49 AM EST) Sodium 137 133 - 145 mmol/L LAB CHEMISTRY METHOD 01/31/2024 1:26 AM EST [facility] Potassium 4.1 3.5 - 5.5 mmol/L LAB CHEMISTRY METHOD 01/31/2024 1:26 AM EST [facility] Chloride 104 96 - 110 mmol/L LAB CHEMISTRY METHOD 01/31/2024 1:[address] [facility] CO2 27 21 - 32 mmol/L LAB CHEMISTRY METHOD 01/31/2024 1:[address] [facility] Anion Gap 6 3 - 11 LAB CHEMISTRY METHOD 01/31/2024 1:[address] [facility] Glucose 280(H) 70 - 100 mg/dL LAB CHEMISTRY METHOD 01/31/2024 1:[address] [facility] BUN 14 5 - 25 mg/dL LAB CHEMISTRY METHOD 01/31/2024 1:[address] [facility] Creatinine 0.91 0.70 - 1.30 mg/dL LAB CHEMISTRY METHOD 01/31/2024 1:[address] [facility] eGFR 111 >=60 mL/min/1. 73m2 LAB CHEMISTRY METHOD 01/31/2024 1:[address] [facility] Comment:Calculation based on the??Chronic Kidney Disease Epidemiology Collaboration (CKD-EPI) equation refit??without adjustment for race. BUN/Creatinine Ratio 15.4 LAB CHEMISTRY METHOD 01/31/2024 1:[address] [facility] Calcium 9.5 8.5 - 10.5 mg/dL LAB CHEMISTRY METHOD 01/31/2024 1:[address] [facility] Blood Venous blood specimen / Unknown Venipuncture / Unknown 01/31/2024 12:49 AM EST 01/31/2024 1:00 AM EST Nikole WADE LAB BLOOD ORDERABLES [facility] [address] [place] [address], * XR Lumbar Spine 2-3 Views (01/26/2024 [...] Signed Date: 01/26/2024 12:23 ET Workstation ID: [id number] Transcribed By: Self Edit Transcribed Date: 01/26/2024 12:20 ET Narrative 01/26/2024 12:23 PM EST History: Low back pain. [place] pop when bending over 2 days ago. [...] MD - 01/26/2024 History: Low back pain. [place] pop when bending over 2 days ago. Comparison: CT abdomen/pelvis 11/02/23 Findings: AP, lateral and coned lateral views. There are 4 wevlzn-oniqrsbbcnjok-ohzt vertebra and a transitional lumbosacral segment which [...] Signed Date: 01/26/2024 12:23 ET Workstation ID: [id number] Transcribed By: Self Edit Transcribed Date: 01/26/2024 12:20 ET José Miguel King DO IMG XR PROCEDURES * XR Foot 3+ Views Right (12/24/2023 8:04 PM EST) Anatomical Region Laterality Modality Lower Extremities, Foot Right [facility] 12/25/2023 8:32 AM EST Impressions 12/25/2023 8:33 AM EST No acute deformity. ??Mild degenerative changes are noted throughout. ??Alignment is maintained. ??Very minimal hallux valgus. -------- FINAL REPORT -------- Dictated By: Elias Garcia Dictated Date: 12/25/2023 08:32 ET Assigned Physician: Elias Garcia Reviewed and Electronically Signed By: Elias Garcia Signed Date: 12/25/2023 08:33 ET Workstation ID: [id number] Transcribed By: Self Edit Transcribed Date: 12/25/2023 [...] Signed Date: 12/25/2023 08:33 ET Workstation ID: [id number] Transcribed By: Self Edit Transcribed Date: 12/25/2023 08:32 ET Senia WADE IMG XR PROCEDURES from Last 3 Months Care Teams Chicken Catcher Relationship Specialty Start Date End Date Matilde Calabrese MD [address] [phone] PCP - General 11/22/23
--- OUTSIDE RECORDS SUMMARY | 2024-03-18 05:52 | XMS_ITS | Encounter Summary ---
Author Organization [employer] Address [address] [place] [address] Care Team Providers Care Nutrient Management Specialist Name Role Phone Matilde Calabrese MD Primary Care Provide r Reason for Visit * Reason Comments Procedure Encounter Details Date Type Department Care Team (Latest Contact Info) Description 02/22/2024 10:30 AM EST Procedure visit General Surgery - [place] [address] [place] [phone] Nic Nieto MD [address] [place] [address] Epidermal inclusion cyst (Primary Dx) Social History [...] feel free to call the office at [phone]. * Nic Nieto MD - 02/22/2024 10:30 [...] right neck requiring incision and drainage at [facility]. His diabetes was diet controlled prior to [...] AM EST Office Visit Orthopedic Surgery - [place] [address] [phone] Elias Agee DPM [address] [address] documented as of this encounter Procedures Procedure Name Priority Date/Time Associated Diagnosis Comments TISSUE EXAM Routine 02/22/2024 10:50 AM EST Epidermal inclusion cyst documented in this encounter Results * Tissue Exam (02/22/2024 10:50 AM EST) Final Diagnosis Skin, right neck-biopsy: -EPIDERMAL INCLUSION CYST, RUPTURED 02/26/2024 12:45 PM [facility] Clinical Information Epidermal inclusion cyst L72.0 02/26/2024 12:45 PM [facility] Gross Description A. Neck, right neck: Labeled neck . Received in formalin is a 1.4 x 0.3 cm rudd-brown skin ellipse excised with depth of 0.8 cm. The cut surfaces display a 0.3 cm possible cyst containing a rudd-yellow friable substance. Calciner Feeder sections are submitted in one cassette, to include the entirety of the possible cyst, three pieces. MARLEY 02/26/2024 12:45 PM [facility] Disclaimer Unless otherwise specified, all tissue is 10% NB formalin fixed and paraffin embedded. 02/26/2024 12:45 PM [facility] Tissue Neck structure / Unknown Non-blood Collection / Unknown 02/22/2024 10:50 AM EST 02/22/2024 11:21 AM EST Nic Nieto MD LAB PATHOLOGY ORDERA WALKER [facility] Organization Address City/State/ZIP Co de Phone Number [facility] [address] [phone] documented in this encounter Visit Diagnoses Diagnosis Epidermal inclusion cyst- Primary Sebaceous cyst documented in this encounter Additional Health Concerns Infection Onset Date Last Indicated Resolved Time RSV 02/06/2024 02/06/2024 03/01/2024 7:04 PM EST Enterovirus 02/06/2024 02/06/2024 03/01/2024 7:04 PM EST Rhinovirus 02/06/2024 02/06/2024 03/01/2024 7:04 PM EST documented as of this encounter Care Teams Nutrient Management Specialist Relationship Specialty Start Date End Date Matilde Calabrese MD [address] [place] [phone] PCP - General 11/22/23 documented as of this encounter
--- OUTSIDE RECORDS SUMMARY | 2024-03-18 05:52 | XMS_ITS | Encounter Summary ---
Author Organization [employer] Address [address] [facility] [address] [place] [address] Care Team Providers Care Financial Compliance Officer Name Role Phone Alexandre Sandoval MD Primary Care Prov ider Matilde Calabrese MD Primary Care Provide r Kourtney Su PharmD Unavailable [phone] Cecily Pinedo RN Unavailable [phone] Reason for Visit * Reason Comments Med Change Request Encounter Details Date Type Department Care Team (Late Contact Info) Description 05/23/2022 Refill [facility] [address] [place], [place] [phone] Alexandre Sandoval MD [address] [place] [address] Social History Tobacco Use Types Packs/Day Years [...] Department Care Team (Late Contact Info) Description 03/26/2024 9:30 AM EST Medication Management [facility] [address] [place] [address] Kourtney Su, PharmD [address] [place] [address] 05/06/2024 10:00 AM EDT Office Visit [facility] [address] [place] [address] Matilde Calabrese MD [address] [place] [address] 06/03/2024 11:30 AM EDT Office Visit [facility] [address] [place] [address] Rodger Cole MD [address] [place] [address] documented as of this encounter Visit Diagnoses Not on filedocumented in this encounter Care Teams Financial Compliance Officer Relationship Specialty Start Date End Date Alexandre Sandoval MD [address] [place] [address] PCP - General Internal Medicine 07/20/19 11/22/23 Matilde Calabrese MD [address] [place] [address] PCP - General Internal Medicine 11/23/23 Kourtney Su, PharmD [address] [place] [address] Pharmacist Internal Medicine 12/05/23 Cecily Pinedo RN [address] [place] [address] Registered Nurse Cardiac TelemetryOperations Inspector 01/08/24 [facility] 01/09/24 documented as of this encounter
--- OUTSIDE RECORDS SUMMARY | 2024-03-18 05:52 | XMS_ITS | Encounter Summary ---
Author Organization [employer] Address [address] [facility] [address] [place] [address] Care Team Providers Care Loan Expeditor Name Role Phone Matilde Calabrese MD Primary Care Provide r Kourtney Su PharmD Unavailable [phone] Cecily Pinedo RN Unavailable [phone] Reason for Referral * Neurology (Routine) - Authorized Specialty Diagnoses / Procedures Referred By Contac t Referred To Contact Diagnoses Bilateral wrist pain Procedures Nerve conduction test Matilde Calabrese MD [address] [place] [address] Phone: tel: fax: [address] Phone: tel: fax: Referral ID Status Reason Start Date Expiration Date V isits Requested Visits Authorized [id number] Authorized 03/07/2024 03/07/2025 1 1 Reason for Visit * Reason Onset Date Comments Care Coordination 03/07/2024 Encounter Details Date Type Department Care Team (Late st Contact Info) Description 03/07/2024 Telephone [facility] [address] [place] [address] Cecily Pinedo RN [address] [place], [place] [phone] Care Coordination Social History Tobacco Use Types [...] 11:54 AM EST TC placed to patient [phone] to inform of below message. Patient verbalized [...] referral to Ortho/ EMG. Pleasecontact patient at [phone]. Thank you. documented in this encounter Plan of Treatment Upcoming Encounters Date Type Department Care Team (Late st Contact Info) Description 03/26/2024 9:30 AM EST Medication Management [facility] [address] [place] [phone] Kourtney Su, PharmD [address] [place] [address] 05/06/2024 10:00 AM EDT Office Visit [facility] [address] [place] [address] Matilde Calabrese MD [address] [place] [address] 06/03/2024 11:30 AM EDT Office Visit [facility] [address] [place], [place] [phone] Rodger Cole MD [address] [place], [place] [phone] Scheduled Orders Name Type Priority Associated Diagnoses Orde r Schedule Nerve conduction test Neurology Routine Bilateral wrist pain Expected: 03/07/2024 (Approximate), Expires: 03/07/2025 documented as of this encounter Visit Diagnoses Diagnosis Bilateral wrist pain- Primary documented in this encounter Additional Health Concerns Assessment Noted Time PHQ-9 Depression Total Score: 18 024 9:55 AM EST documented as of this encounter Care Teams Loan Expeditor Relationship Specialty Start Date End Date Matilde Calabrese MD [address] [place] [address] PCP - General Internal Medicine 11/23/23 Kourtney Su PharmD [address] [place] [address] Pharmacist Internal Medicine 12/05/23 Cecily Pinedo RN [address] [place] [address] Used Car RenovatorPrincipal Hardware Architect 01/08/24 [facility] 01/09/24 documented as of this encounter
--- OUTSIDE RECORDS SUMMARY | 2024-03-18 05:52 | XMS_ITS | Encounter Summary ---
Author Organization [employer] Address [address] [facility] 7t [place] [address] Care Team Providers Care Operator Ground Based Air Defence Name Role Phone Alexandre Sandoval MD Primary Care Prov ider Matilde Calabrese MD Primary Care Provide r Kourtney Su PharmD Unavailable [phone] Cecily Pinedo RN Unavailable [phone] Encounter Details Date Type Department Care Team (Late st Contact Info) Description 11/08/2023 Telephone [facility] [address] [place] [address] Marie Birmingham PharmD [address] [place] [address] Social History Tobacco Use Types Packs/Day Years [...] Please assist in obtaining discharge paperwork from [facility] Patient was discharged on 11/04/2023. Thank you documented in this encounter Plan of Treatment Upcoming Encounters Date Type Department Care Team (Late st Contact Info) Description 03/26/2024 9:30 AM EST Medication Management [facility] [address] [place] [address] Kourtney Su PharmD [address] [place] [address] 05/06/2024 10:00 AM EDT Office Visit [facility] [address] [place] [address] Matilde Calabrese MD [address] [place] [address] 06/03/2024 11:30 AM EDT Office Visit [facility] [address] [place] [address] Rodger Cole MD [address] [place] [address] documented as of this encounter Visit Diagnoses Not on filedocumented in this encounter Care Teams Operator Ground Based Air Defence Relationship Specialty Start Date End Date Alexandre Sandoval MD [address] [place] [address] PCP - General Internal Medicine 07/20/19 11/22/23 Matilde Calabrese MD [address] [place] [address] PCP - General Internal Medicine 11/23/23 Kourtney Su, EmmaD [address] [place] [address] Pharmacist Internal Medicine 12/05/23 Cecily Pinedo RN [address] [place] [address] Blocking Machine OperatorSlide Forming Machine Tender 01/08/24 [facility] 01/09/24 documented as of this encounter
--- OUTSIDE RECORDS SUMMARY | 2024-03-18 05:52 | XMS_ITS | Clinical Summary ---
Author Organization [employer] Address [address] [facility] [address] [place] [address] Care Team Providers Care Patrol Commander Name Role Phone Matilde Calabrese MD Primary Care Provide r Kourtney Su PharmD Unavailable [phone] Cecily Pinedo RN Unavailable [phone] Allergies Active Allergy Reactions Criticality Noted Date [...] tablet 3 024 2024 Active Continuous Glucose Fire Prevention Specialist (FreeStyle Cherelle 2 [place]) deviceIndication s:Type 2 diabetes mellitus with hyperglycemia, without long-term current use of insulin ([facility]) Scan sensor every 8 hours 1 each 024 Active glucose blood (FreeStyle Precision Jefry Test) test stripIndications :Type 2 diabetes mellitus with hyperglycemia, without long-term current use of insulin ([facility]) Use to test blood sugar 3 times daily 100 each 12 024 2024 Active lisinopril (Prinivil) 10 MG tabletIndication s:Essential (primary) hypertension Take 1 tablet (10 mg) by mouth Once per day. 30 tablet 11 11/07/2 024 2024 Active Continuous Glucose Sensor (FreeStyle Cherelle 2 Sensor) miscIndications: Type 2 diabetes mellitus with hyperglycemia, without long-term current use of insulin ([facility]) Apply 1 sensor every 14 days 2 each 1 Active FreeStyle lancetsIndicatio ns:Type 2 diabetes mellitus with hyperglycemia, with long-term current use of insulin ([facility]) 1 each by Other route 4 times [...] hyperglycemia, with long-term current use of insulin ([facility]) Use as instructed with insulin administration once daily 100 each 024 2024 Active UltiCare Alcohol Swabs 70 % padsIndications: Type 2 diabetes mellitus with hyperglycemia, with long-term current use of insulin ([facility]) Use as directed with insulin administration once [...] hyperglycemia, with long-term current use of insulin ([facility]) Inject 0.5 mL (3 mg) under the [...] hyperglycemia, with long-term current use of insulin ([facility]) Take 1 tablet by mouth once daily 90 tablet 025 Active insulin degludec (Tresiba FlexTouch) 100 UNIT/ML injectionIndicat ions:Type 2 diabetes mellitus with hyperglycemia, with long-term current use of insulin ([facility]) Inject subcutaneously 18 units once daily 15 [...] hyperglycemia, with long-term current use of insulin ([facility]) Use as directed for low blood sugar [...] hyperglycemia, without long-term current use of insulin ([facility]) Inject 1.5 mg under the skin 1 (one) time per week. 2 mL 1 024 2023 Discontinued(D ose adjustment) gabapentin (Neurontin) 100 MG capsuleIndicatio ns:Diabetic polyneuropathy associated with type 2 diabetes mellitus (CMS/HCC) Take 1 capsule (100 mg) by mouth if needed in the morning, at noon, and at bedtime (for breakthrough pain). 90 capsule 1 2024 Discontinued(D ose adjustment) insulin degludec (Tresiba FlexTouch) 100 UNIT/ML injection [...] hyperglycemia, with long-term current use of insulin ([facility]) Inject subcutaneously 18 units once daily 025 [...] right sided headache as well. Seen at [facility] ER, intraocular pressure per ER report on right eye was normal. On today's exam pt has photophobia and painful extraocular movements on the right. No redness, mild tenderness to palpation right eye. Etiology ? Ocular migraine vs other etiologies Plan: Stat Orbital and head CT. CBC, ESR. 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 Gresham tomorrow at 3:45 PM Follow [...] (02/17/2024 5:00 PM EST): - Referral to [facility] Derm team placed 02/17/24 - [...] Encounters Date Type Department Care Team Description 03/17/[address] [facility] MEDICINE [address] [place] [address] Matilde Calabrese MD Transition Of Care (Tcm) 03/14/[address] [facility] MEDICINE [address] [place] [address] Christian Muñoz MD 03/12/2024 3:45 PM EST Office Visit 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 MEDICINE [address], [place] [phone] Cecily Pinedo RN 03/11/2024 3:00 PM EST Office Visit [facility] MEDICINE [address], [place] [phone] Christian Muñoz MD Ocular pain, right eye; Acute intractable headache, unspecified headache type 03/11/[address] [facility] MEDICINE [address] [place] [address] Kourtney Su, Samara 03/11/2024 Travel 03/11/2024 Patient Outreach [address] [address] Matilde Calabrese MD Transition Of Care (Tcm) 03/07/[address] [address] Cceily Pinedo, ROSA Care Coordination 03/07/[address] [address] Cecily Pinedo, ROSA Care Management (C3CM- f/u call) 03/06/2024 Patient Outreach [address] [address] Matilde Calarbese MD Care Coordination (SDOH/appt reminders) 03/03/2024 10:00 AM EST Office Visit [facility] WALK-IN CENTER [address] [place] [phone] Charity Luna DO Right foot pain (Primary Dx) 02/29/[address] [address] Matilde Calabrese MD Call Back Request 02/28/[address] [address] Matilde Calabrese MD 02/27/2024 Travel 02/26/2024 10:30 AM EST Telemedicine [address] [address] Kourtney Su, Samara Type 2 diabetes mellitus with hyperglycemia, with long-term current use of insulin ([facility]) (Primary Dx) 02/26/[address] [facility] MEDICINE [address] [place] [phone] Matilde Calabrese MD Constipation, unspecified constipation type (Primary Dx) 02/26/[address] [phone] Chante Davis, ROSA 02/25/[address] [phone] Cecily Pinedo RN 02/25/[address] [address] Cecily Pinedo RN Care Management (C3CM- f/u call) 02/22/[address] [address] Kourtney Su, EmmaD 02/19/[address] [address] Ileana Jones RN Hyperglycemia 02/19/2024 Travel 02/18/[address] [address] Matilde Calabrese MD CRITICAL RESULT 02/18/2024 Orders Only GENERIC EXTERNAL DATA DEPARTMENT Provider, Generic External Data 02/18/2024 Patient Outreach [address] [address] Matilde Calabrese MD Care Coordination (Appt reminders) 02/18/2024 Travel 02/15/2024 10:00 AM EST Office Visit [facility] MED [facility] PEDS [address] [place] [address] Silvia George, BRITTANY Carpal tunnel syndrome, unspecified laterality (Primary Dx); Type 2 diabetes mellitus with hyperglycemia, with long-term current use of insulin ([facility]); Hidradenitis suppurativa; Essential (primary) hypertension 02/15/2024 Travel 02/14/2024 Patient Outreach [address] [address] Matilde Calabrese MD Care Coordination (APPT REMINDER) 02/11/[address] [address] Cecily Pinedo, RN Care Management (C3- f/u call) 02/07/2024 Orders Only [place] [facility] [address] [place] [phone] Ari Guidry MD 02/07/[address] [address] Linn Connelly RN 02/06/2024 Telephone [facility] [address] [place] [phone] Matilde Calabrese MD No Show 02/06/[address] [address] Matilde Calabrese MD 02/05/2024 Patient Outreach [address] [address] Matilde Calabrese MD 02/05/2024 Patient Outreach [address] [address] Matilde Calabrese MD Care Coordination (Appt reminder) 02/04/[address] [address] Ariana Briggs MA Chart Prep 02/02/2024 9:40 AM EST Office Visit [facility] WALK[facility]IN CENTER [address] [place] [phone] Wendy Wright NP Abscess (Primary Dx); Cellulitis of neck; Hypertension, unspecified type 02/01/2024 Patient Outreach [address] [address] Matilde Calabrese MD Transition Of Care (Tcm) 01/31/[address] [address] Ariana Briggs MA X-RAY RESULTS 01/31/2024 Orders Only [place] [facility] [address] [place] [address] Ari Guidry MD 01/31/[address] [address] Cynthia Zepeda MA Results 01/31/2024 Patient Outreach [address] [address] Matilde Calabrese MD Care Coordination (PT1) 01/28/2024 Patient Outreach [address] [address] Matilde Calabrese MD Care Coordination (PT1) 01/28/2024 Patient Outreach [address] [address] Matilde Calabrese MD 01/25/[address] [address] Cecily Pinedo RN Care Management (C3CM- f/u call) 01/25/2024 Patient Outreach [address] [address] Matilde Calabrese MD Care Coordination (SDOH) 01/16/2024 Patient Outreach [address] [address] Matilde Calabrese MD Care Coordination (SDOH) 01/11/[address] [address] Cecily Pinedo RN Care Coordination 01/08/2024 2:40 PM EST Office Visit [facility] WALK[facility]IN CENTER [address] [place] [phone] Erin Bueno MD LLQ abdominal pain (Primary Dx) 01/08/[address] [facility] [address] [place] [address] Erin Bueno MD 01/08/2024 Orders Only [address] [address] Matilde Calabrese MD Essential (primary) hypertension (Primary Dx); Decreased hearing of both ears 01/08/[address] [address] Cecily Pinedo RN Care Management (C3- initial assessment/ enrollment) 01/07/2024 Patient Outreach [address] [address] Matilde Calabrese MD Care Coordination (CM/CHW appt reminder) 01/07/[address] [address] Kourtney Su, Samara 01/07/2024 Travel 12/31/2023 Telephone [facility] [address] [place] [phone] Eli Ramsay, ROSA VNA; FYI 12/31/2023 Patient Outreach [address] [address] Matilde Calabrese MD Care Coordination (CM/CHW appt ) 12/28/[address] [address] Ariana Briggs MA Durable Medical Equipment (/) 12/27/2023 9:30 AM EST Office Visit [address] [address] Matilde Calabrese MD Essential (primary) hypertension (Primary Dx); Type 2 diabetes mellitus with hyperglycemia, with long-term current use of insulin (CMS/HCC); Type 2 diabetes mellitus with hyperglycemia, without long-term current use of insulin (CMS/HCC); Nail disease; Diabetic polyneuropathy associated with type 2 diabetes mellitus (CMS/HCC); Bilateral wrist pain; Encounter for immunization 12/27/[address] [address] Matilde Calabrese MD Letter for School/Work 12/27/2023 Travel 12/25/2023 Patient Outreach [address] [address] Matilde Calabrese MD Transition Of Care (Tcm) 12/24/[address] [address] Kourtney Su, PharmD ED Status Check 12/20/2023 Patient Outreach [address] [address] Matilde Calabrese MD Care Coordination (CM/CHW outreach) 12/18/[address] [address] Matilde Calabrese MD 12/18/2023 Patient Outreach [address] [address] Matilde Calabrese MD Pre-visit Planning (SDOH screening completed on 04/27/2023) 12/17/[address] [facility] MEDICINE [address] [place] [address] Matilde Calabrese MD Care Management from Last 3 Months Immunizations Name Administration [...] Description 03/26/2024 9:30 AM EST Medication Management [facility] MEDICINE [address] [place] [phone] Kourtney Su, PharmD [address] [place] [phone] 05/06/2024 10:00 AM EDT Office Visit [facility] MEDICINE [address] [place] [phone] Matilde Calabrese MD [address] [place] [address] 06/03/2024 11:30 AM EDT Office Visit [facility] MED & [facility] [address] [place] [address] Rodger Cole MD [address] [facility] [place] [address] Health Maintenance Due Date Last Done Comments HIV Screening 1985 Family Planning (PISQ) 2001 COVID-19 Vaccine ( season) 2023 04/09/2020, 03/12/2020 Diabetes: Hemoglobin A1C 05/18/2024 024, 11/14/2023, 03/20/2023, Additional history exists Hepatitis B Vaccines (3 of - 19+ 3-dose series) 06/04/2024 02/18/2024, 12/05/2023 Depression Monitoring (PHQ-9) 06/25/2024 12/27/2023, 12/27/2023 Alcohol/Substance Use Screening 12/26/2024 12/27/2023 Depression Screening 12/26/2024 12/27/2023, 12/27/19 24 SDOH Screening 01/15/2025 01/16/2024 Diabetes: Urine Protein Screening 02/17/2025 02/18/2024, 07/25/2022, 01/09/2020 Lipid Panel 02/17/2025 02/18/2024, 01/09/2020 Diabetes: Foot Exam 03/03/2025 03/03/2024 Eye Exam 03/12/2025 03/12/2024, 02/20, 03/12/2024, Additional history exists Tobacco Screening 03/12/2025 03/12/2024 DTaP/Tdap/Td Vaccines (3 [...] WO CONTRAST Routine 03/14/2024 10:[address] HEAD WO CONTRAST Routine 03/14/2024 1 0:02 AM EST Ocular pain, right eye Acute intractable headache, unspecified headache type FUNDUS PHOTOS - OU - BOTH EYES Routine 03/12/2024 3:45 PM EST 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 [facility] ?[address] ?[place] [address] ? CT Scan Report ? Signed ? Patient: Anderson,Raji ?MR#: [id number] ? : 1985 ?Acct:[id number] ? Age/Sex: 38 / M ?ADM Date: 01/24/25 ? Loc: HO.CT ? Attending Dr: Christian Shelton MD ? Ordering Physician: Christian Shelton MD ?? Date of Service: 03/14/24 ?? Procedure(s): CT orbit BI wo IV con ?? Accession Number(s): [id number] ? cc: Matilde Calabrese MD; Christian Shelton MD ? Report Number: ?? [id number]: Total DLP = ??121.00 mGy-cm ? CLINICAL [...] by Sree Baron MD in OV> ? 03/14/24 1006 ? DD/ 04 ? TD/TT: 03/14/241004 ? Hog Tender: ? Procedure Note Rich, Salima - 03/14/[address] [place] [address] [address] Scan Report Signed Patient: Cedrick Anderson#: [id number] : 1985Acct:[id number] Age/Sex: 38 / MADM Date: 03/14/24 Loc: HO.CT Attending Dr: Christian Shelton MD Ordering Physician: Christian Shelton MD Date of Service: 03/14/24 Procedure(s): CT orbit BI wo IV con Accession Number(s): [id number] cc: Matilde Calabrese MD; Christian Shelton MD Report Number: [id number]: Total DLP = 121.00 mGy-cm CLINICAL HISTORY: [...] 03/14/24 1006 DD/ 1005 TD/TT: 03/14/24 1005 Hog Tender: us Christian Fuchs MD IMG CT PROCEDURES Fin al Result * CT Head w/o Contrast (03/14/2024 10:02 AM EST) Anatomical Region Laterality Modality Head, Neck Computed Tomogra phy 03/14/2024 10:0 2 AM EST Narrative 03/14/2024 10:04 AM EST ? [facility] ?[address] ?[place] [address] ? CT Scan Report ? Signed ? Patient: Anderson,Raji ?MR#: [id number] ? : 1985 ?Acct:[id number] ? Age/Sex: 38 / M ?ADM Date: 03/14/24 ? Loc: HO.CT ? Attending Dr: Christian Shelton MD ? Ordering Physician: Christian Shelton MD ?? Date of Service: 03/14/24 ?? Procedure(s): CT head/brain wo IV con ?? Accession Number(s): [id number] ? cc: Matilde Calabrese MD; Christian Shelton MD ? Report Number: ?? [id number]: Total DLP = 1059.00 mGy-cm ? CLINICAL HISTORY: painful right eye extraocular movements ? CT head without contrast ? Comparison: None ? Findings: ?? The size and shape of the ventricular system is within normal limits. ?? Attenuation of the brain parenchyma is within normal limits. ?? Menard-white differentiation is well preserved. ?? No midline shift or mass effect. ?? No intracranial hemorrhage. ?? No calvarial fractures. ?? Fluid within the right mastoid air cells. ? IMPRESSION: ?? 1. No acute intracranial findings. ? 2. Right mastoid effusion. ? This document has been electronically signed by: Sree Baron MD on ?? 03/14/2024 10:02:46 ? Dictated By: ?Sree Baron MD ? Signed By: ?<Electronically signed by Sree Baron MD in OV> ? 03/14/24 1004 ? DD/ 1002 ? TD/TT: 03/14/24 1002 ? Hog Tender: ? Procedure Note Rich, Image - 03/14/[address] [place] [address] [address] Scan Report Signed Patient: Cedrick Anderson#: [id number] : 1985Acct:[id number] Age/Sex: 38 / MADM Date: 03/14/24 Loc: HO.CT Attending Dr: Christian Shelton MD Ordering Physician: Christian Shelton MD Date of Service: 03/14/24 Procedure(s): CT head/brain wo IV con Accession Number(s): [id number] cc: Matilde Calabrese MD; Christian Shelton MD Report Number: [id number]: Total DLP = 1059.00 mGy-cm CLINICAL HISTORY: painful right eye extraocular movements CT head without contrast Comparison: None Findings: The size and shape of the ventricular system is within normal limits. Attenuation of the brain parenchyma is within normal limits. Menard-white differentiation is well preserved. No midline shift or mass effect. No intracranial hemorrhage. No calvarial fractures. Fluid within the right mastoid air cells. IMPRESSION: 1. No acute intracranial findings. 2. Right mastoid effusion. This document has been electronically signed by: Sree Baron MD on 03/14/2024 10:02:46 Dictated By: Sree Baron MD Signed By: <Electronically signed by Sree Baron MD in OV> 03/14/24 1004 DD/ 1002 TD/TT: 03/14/24 1002 Hog Tender: Christian Fuchs MD IMG CT PROCEDURES Fin al Result * Fundus Photos - OU - Both [...] 360 Plan: RTC 3 months for f/u Anisha Marga OD OPHTH PHOTOGRAPHY Final Result * (ABNORMAL) CBC auto differential (03/12/2024 2:58 PM EST) Only the most recent of2 resultswithin the time period is included. White Blood Count 9.5 4.8 - 10.8 X10*3/uL [facility] Red Blood Count 4.66 4.60 - 5.80 X10*6/uL [facility] Hemoglobin 13.9(L) 14.0 - 18.0 g/dl [facility] Hematocrit 40.0(L) 42.0 - 52.0 % [facility] Mean Corpuscular Volume 85.8 80.0 - 98.0 fL [facility] Mean Corpuscular Hemoglobin 29.8 27.0 - 33.0 pg [facility] Mean Corpuscular HGB Conc 34.8 31.0 - 36.0 g/dl [facility] Red Cell Distribution Width 12.3 11.0 - 16.0 % [facility] Platelet Count 326 160 - 400 X10*3/uL [facility] Mean Platelet Volume 10.4 9.4 - 12.4 fL [facility] Neutrophils Percent Auto 58.0 45 - 73 % [facility] Imm Gran Pct Auto 0.3 0.0 - 0.4 % [facility] Lymphocytes Percent Auto 30.5 20 - 40 % [facility] Monocytes Percent Auto 6.6 2 - 11 % [facility] Eosinophils Percent Auto 3.4 0 - 4 % [facility] Basophils Percent Auto 1.2 0 - 2 % [facility] NRBC Pct Auto 0.0 0.0 - 0.2 /100WBC [facility] Neutrophils Absolute Auto 5.5 2.0 - 8.3 x10*3/uL [facility] Imm Gran Abs Auto 0.03 0.00 - 0.03 X10*3/uL [facility] Lymphocytes Absolute Auto 2.9 1.2 - 4.9 X10*3/uL [facility] Monocytes Absolute Auto 0.6 0.1 - 1.2 X10*3/uL [facility] Eosinophils Absolute Auto 0.3 0.0 - 0.4 X10*3/uL [facility] Basophils Absolute Auto 0.1 0.0 - 0.2 X10*3/uL [facility] NRBC Abs Auto 0.000 0.0 - 0.012 X10*3/uL [facility] Blood Venous blood specimen / Unknown 03/12/2024 2:58 PM EST 03/12/2024 4:20 PM EST Christian Fuchs MD LAB BLOOD ORDERABLES Final Result Performing Organization Address [facility] Co de Phone Number [facility] [address] [place] [phone] * (ABNORMAL) Sed Rate by Modified Westergren (03/12/2024 2:58 PM EST) Erythrocyte Sedimentation Rate 34(H) 0 - 15 MM/HR [facility] Comment:Patients with polycy themia and many hemoglobin abnormalitiesmay have depressed sed rates whereas patients with anemiamay have elevated sed rates. Blood Venous blood specimen / Unknown 03/12/2024 2:58 PM EST 03/12/2024 4:20 PM EST Christian Fuchs MD LAB BLOOD ORDERABLES Final Result Performing Organization Address [facility] de Phone Number [facility] [address] [place] [phone] * (ABNORMAL) Basic Metabolic Panel (03/12/2024 2:58 PM EST) Only the most recent of2 resultswithin the time period is included. Pathologist [facility] Sodium 135 135 - 145 mmol/L [facility] Potassium 4.3 3.3 - 5.1 mmol/L [facility] Chloride 105 96 - 108 mmol/L [facility] Carbon Dioxide 25 22 - 29 mmol/L [facility] Anion Gap 9(L) 12 - 20 [facility] Urea Nitrogen (BUN) 13 9 - 16 mg/dL [facility] Creatinine, Serum 0.93 0.5 - 1.4 mg/dL [facility] Estimated Glomerular Filt Rate >60 [facility] Comment:Chronic Kidney Disea se: Estimated GFR < 60 mL/min/1.15w5Tsudnc Kidney Disease: Estimated GFR < 15 mL/min/1.73m2 Glucose 227(H) 60 - 115 mg/dL [facility] Calcium 9.6 8.4 - 10.2 mg/dL [facility] Blood Venous blood specimen / Unknown 03/12/2024 2:58 PM EST 03/12/2024 4:20 PM EST us Christian Fuchs MD LAB BLOOD ORDERABLES Final Result [facility] [address] [place] [phone] * XR Foot 3+ Views Right (03/03/2024 10:49 AM EST) Anatomical Region Laterality Modality Lower Extremities, Foot Right Radiogra phic Imaging 03/03/2024 10:4 9 AM EST Narrative 03/03/2024 11:09 AM EST ?[facility] ?[address] ?[place] [address] ?XRay Report ? Signed ? Patient: AndersonRaji ?MR#: [id number] ? : 1985 ?Acct:[id number] ? Age/Sex: 38 / M ?ADM Date: 03/03/24 ? Loc: HO.HHCX ? Attending Dr: Charity Luna DO ? Ordering Physician: Charity Luna DO ?? Date of Service: 03/03/24 ?? Procedure(s): XR foot RT min 3V ?? Accession Number(s): [id number] ? cc: Charity Luna DO ? EXAMINATION: [...] DD/ 1049 ? TD/TT: 03/03/24 1058 ? Hog Tender: ? Procedure Note Rich, Image - 03/03/[address] [address] XRay Report Signed Patient: Cedrick Anderson#: [id number] : 1985Acct:[id number] Age/Sex: 38 / MADM Date: 03/03/24 Loc: HO.HHCX Attending Dr: Charity Luna DO Ordering Physician: Cahrity Luna DO Date of Service: 03/03/24 Procedure(s): XR foot RT min 3V Accession Number(s): [id number] cc: Charity Luna DO EXAMINATION: XR FOOT [...] 03/03/24 1106 DD/ 1049 TD/TT: 03/03/24 1058 Hog Tender: Charity Luna DO IMG XR PROCEDURES Edited Res ult - Final * (ABNORMAL) POCT Glucose (02/19/2024 12:57 PM EST) Only the most recent of4 resultswithin the time period is included. Glucose Blood, POC 417(A) 60 - 200 mg/dL QC Media Lot # [id number] Lot# Expiration Date 260 Blood Capillary blood specimen / Unknown 02/19/2024 [...] Media Lot # [id number] Lot# Expiration Date ,025 Urine 02/19/2024 11:2 2 AM EST Christian Fuchs MD POINT OF CARE TEST EN TER/EDIT ORDERABLES Final Result * Albumin, Random Urine W/Creatinine (02/18/2024 11:22 AM EST) Creatinine, Urine 209.68 mg/dL [facility] Microalbumin Urine 52.0 mg/L [facility] Microalbum Creatinine Ratio Ur 24.7 <30 ug/mg cr [facility] Comment:Albumin/Creatinine R atio Reference Ranges: Normal: < 30 ug/mg creatinine Microalbuminuria: 30 - 300 ug/mg creatinineClinical Albuminuria: > 300 ug/mg creatinine 02/18/2024 11:2 2 AM EST 02/18/2024 1:18 PM EST Matilde Hudson MD LAB URINE ORDERABLES Final Result [facility] [address] [place] [phone] * Proteinase-3 Antibody (02/18/2024 9:45 AM EST) Proteinase-3 Antibody <1.0 [facility] Comment:Value Interpretation ----- <1.0 No Antibody Detected > or = 1.0 Antibody DetectedAutoantibodies to proteinase-3 (NJ-3) are accepted ascharacteristic for granulomatosis with polyangiitis(GPA, Brianna's), and are detectable in 95% of thehistologically proven cases. The cytoplasmic IFApattern, (c-ANCA), is based largely on autoantibody toPR-3 which serves as the primary antigen.These autoantibodies are present in active disease.THIS TEST WAS PERFORMED AT:[facility] [employer] [address] [id number] OWEN MD 02/18/2024 9:45 AM EST 02/18/2024 11:11 AM EST us Generic External Data Provider LAB BLOOD ORDERAB LES Final Result [facility] [address] [place] [phone] * Myeloperoxidase Antibody (MPO) (02/18/2024 9:45 AM EST) Myeloperoxidase Antibody <1.0 [facility] Comment:Value Interpretation ----- <1.0 No Antibody Detected > or = 1.0 Antibody DetectedAutoantibodies to myeloperoxidase (MPO) are commonlyassociated with the following small-vesselvasculitides: microscopic polyangiitis,polyarteritis nodosa, Churg-Rafi syndrome,necrotizing and crescentic glomerulonephritis andoccasionally granulomatosis with polyangiitis(GPA, Brianna's). The perinuclear IFA pattern,(p-ANCA) is based largely on autoantibody tomyeloperoxidase which serves as the primary antigen.These autoantibodies are present in active disease.THIS TEST WAS PERFORMED AT:[facility] [address] [phone] OWEN MD 02/18/2024 9:45 AM EST 02/18/2024 11:11 AM EST us Generic External Data Provider LAB BLOOD ORDERAB LES Final Result Performing Organization Address [facility] Co de Phone Number [facility] [address] [place] [phone] * Phospholipase A2 Receptor (PLA2R) Antibody Panel (02/18/2024 9:45 AM EST) Phospholipase A2 Receptor (PLA2R) Ab, PRACHI <4 RU/mL [facility] Comment:Reference Range: <14 : NEGATIVE 14-19: BORDERLINE >19: POSITIVE Phospholipase A2 Receptor (PLA2R) Ab, IFA NEGATIVE NEGATIVE [facility] Comment:THIS TEST WAS PERFOR MED AT:[facility]/[employer] [id number] [facility] [place] [address]ROJGOGRECIA THORPE MD,PHD,LINDA 02/18/2024 9:45 AM EST 02/18/2024 11:11 AM EST us Generic External Data Provider LAB BLOOD ORDERAB LES Final Result Performing Organization Address [facility] de Phone Number [facility] [address] [place] [phone] * Hepatitis C Antibody with Reflex to HCV, RNA, Quantitative, Real-Time PCR (02/18/2024 9:45 AM EST) Pathologist [facility] Hepatitis C Antibody Nonreactive Nonreactive [facility] Comment:Antibodies to HCV no t detected; does not exclude early acuteHCV infection. 02/18/2024 9:45 AM EST 02/18/2024 11:12 AM EST us Generic External Data Provider LAB BLOOD ORDERAB LES Final Result Performing Organization Address [facility] Co de Phone Number [facility] [address] [place] [phone] * Glomerular Basement Membrane Antibody (IgG) (02/18/2024 9:45 AM EST) Glomerular Basement Memebrane Antibody (IgG) <1.0 AI [facility] Comment:Value Interpretatio n ----- <1.0 No Antibody Detected > or = 1.0 Antibody DetectedTHIS TEST WAS PERFORMED AT:[employer] [id number] [place] [phone] OWEN MD 02/18/2024 9:45 AM EST 02/18/2024 11:11 AM EST Generic External Data Provider LAB BLOOD ORDERAB LES Final Result Performing Organization Address [facility]/ZIP Co de Phone Number [facility] [address] [place] [phone] * DNA (ds) Antibody (02/18/2024 9:45 AM EST) Anti DNA DS Antibody 1 IU/mL [facility] Comment:IU/mL Interpretation < or = 4 Negative 5-9 Indeterminate > or = 10 PositiveTHIS TEST WAS PERFORMED AT:[facility] [address] [phone] OWEN MD 02/18/2024 9:45 AM EST 02/18/2024 11:11 AM EST Generic External Data Provider LAB BLOOD ORDERAB LES Final Result Performing Organization Address [facility]/ZIP Co de Phone Number [facility] [address] [place] [phone] * Hepatitis B surface antigen, EIA (02/18/2024 9:45 AM EST) Hepatitis B Surface Ag Negative Negative [facility] 02/18/2024 9:45 AM EST 02/18/2024 11:12 AM EST us Generic External Data Provider LAB BLOOD ORDERAB LES Final Result Performing Organization Address [facility] Phone Number [facility] [address] [place] [phone] * Hepatitis B Core Antibody, Total (02/18/2024 9:45 AM EST) Hepatitis B Core Antibody Nonreactive Nonreactive [facility] 02/18/2024 9:45 AM EST 02/18/2024 11:12 AM EST Generic External Data Provider LAB BLOOD ORDERAB LES Final Result Performing Organization Address [facility] Number [facility] [address] [place] [phone] * (ABNORMAL) Immunofixation, Serum (02/18/2024 9:45 AM EST) IMMUNOGLOBULIN G 1358 600 - 1640 mg/dL [facility] IMMUNOGLOBULIN A 518(A) 47 - 310 mg/dL [facility] Immunoglobulin M 57 50 - 300 mg/dL [facility] Comment:THIS TEST WAS PERFOR MED AT:[employer] [place] [phone] OWEN MD Immunofixation Result SEE NOTE [facility] Comment:Normal pattern. No m onoclonal proteins detected. 02/18/2024 9:45 AM EST 02/18/2024 11:11 AM EST us Generic External Data Provider LAB BLOOD ORDERAB LES Final Result Performing Organization Address [facility] de Phone Number [facility] [address] [place] [phone] * Complement Component C3c (02/18/2024 9:45 AM EST) Complement C3 166 82 - 185 mg/dL [facility] Comment:THIS TEST WAS PERFOR MED AT:[facility] [address] [phone] OWEN MD 02/18/2024 9:45 AM EST 02/18/2024 11:11 AM EST us Generic External Data Provider LAB BLOOD ORDERAB LES Final Result Performing Organization Address [facility] de Phone Number [facility] [address] [place] [phone] * Complement Component C4c (02/18/2024 9:45 AM EST) Complement C4 20 15 - 53 mg/dL [facility] Comment:THIS TEST WAS PERFOR MED AT:[facility] [employer] [address] [phone] OWEN MD 02/18/2024 9:45 AM EST 02/18/2024 11:11 AM EST us Generic External Data Provider LAB BLOOD ORDERAB LES Final Result Performing Organization Address [facility] Phone Number [facility] [address] [place] [phone] * BUN (Blood Urea Nitrogen) (02/18/2024 9:45 AM EST) Urea Nitrogen (BUN) 14 9 - 16 mg/dL [facility] 02/18/2024 9:45 AM EST 02/18/2024 11:12 AM EST us Generic External Data Provider LAB BLOOD ORDERAB LES Final Result Performing Organization Address [facility] de Phone Number [facility] [address] [place] [phone] * Calcium (02/18/2024 9:45 AM EST) Calcium 9.8 8.4 - 10.2 mg/dL [facility] 02/18/2024 9:4 5 AM EST 02/18/2024 11:12 AM EST us Generic External Data Provider LAB BLOOD ORDERAB LES Final Result Performing Organization Address [facility] Co de Phone Number [facility] [address] [place] [phone] * (ABNORMAL) Hepatic Function Panel (02/18/2024 9:45 AM EST) Bilirubin, Total 0.4 0.0 - 1.0 mg/dL [facility] Bilirubin, Direct 0.1 0.0 - 0.5 mg/dL [facility] Aspartate Amino Transferase 25 5 - 37 U/L [facility] Alanine Aminotransferase 39 0 - 40 U/L [facility] Total Protein 8.7(H) 6.5 - 8.0 g/dL [facility] Albumin Level 4.8 3.5 - 5.0 g/dL [facility] Alkaline Phosphatase 113 39 - 117 U/L [facility] 02/18/2024 9:45 AM EST 02/18/2024 11:12 AM EST us Matilde Hudson MD LAB BLOOD ORDERABLES Final Result Performing Organization Address [facility] Co de Phone Number [facility] [address] [place] [phone] * (ABNORMAL) Lipid Panel, Standard (02/18/2024 9:45 AM EST) Triglycerides 319(H) <150 mg/dL [facility] Comment:Slight Lipemia.Aury able Triglyceride: less than 150 mg/dLBorderline High Triglyceride 150-199 mg/dLHigh Triglyceride: 200-499 mg/dLVery High Triglyceride: greater than or equal to 5OO mg/dL Cholesterol 176 <200 mg/dL [facility] Comment:Desirable Cholestero l: less than 200 mg/dLBorderline High Cholesterol: 200-239 mg/dLHigh Cholesterol: greater than 239 mg/dL LDL Cholesterol Calculated 75 <100 mg/dL [facility] Comment:Desirable LDL: less than 100 mg/dLNear Optimal/Above Optimal LDL: 110- 129 mg/dLBorderline High LDL: 130-159 mg/dLHigh LDL: 160-189 mg/dLVery High LDL: greater than or equal to 190 mg/dL HDL Cholesterol 38(L) >40 mg/dL [facility] Comment:Desirable HDL: great er than 40 mg/dL Note: This HDL assay may give artificially low results in patients with liver disease. 02/18/2024 9:45 AM EST 02/18/2024 11:12 AM EST Matilde Hudson MD LAB BLOOD ORDERABLES Final Result [facility] [address] [place] [phone] * (ABNORMAL) POCT A1C (02/18/2024 9:05 AM EST) Hemoglobin A1C 10.3(A) 4.0 - 6.0 % QC Media Lot # [id number] Lot# Expiration Date Blood 02/18/2024 9:05 AM EST Matilde Hudson MD POINT OF CARE TEST EN TER/EDIT ORDERABLES Final Result * CT Abdomen Pelvis w/o Contrast (02/06/2024 12:43 PM EST) Anatomical Region Laterality Modality Body, Pelvis, Abdomen Computed T omography Historical Provider MD [facility] CT PROCEDURES Final R esult * CT SOFT TISSUE NECK W CONTRAST (01/31/2024 9:58 AM EST) Anatomical Region Laterality Modality Computed Tomogra phy Historical Provider MD [facility]AO CT PROCEDURES Final R esult * C-reactive Protein (01/08/2024 2:03 PM EST) C Reactive Protein 0.18 < or = 0.50 mg/dL [facility] Blood Venous blood specimen / Unknown 01/08/2024 2:03 PM EST 01/08/2024 4:07 PM EST us Erin Bueno MD LAB BLOOD ORDERABLES Final Result [facility] [address] [place] [phone] from Last 3 Months Insurance [facility] C3 Care Teams Patrol Commander Relationship Specialty Start Date End Date Matilde Calabrese MD [address] [place] [phone] PCP - General Internal Medicine 11/23/23 Kourtney Su, Samara [address] [place] [address] Pharmacist Internal Medicine 12/05/23 Cecily Pinedo RN [address] [place] [phone] Living AdvisorOptimization Specialist 01/08/24 [facility] 01/09/24
--- OUTSIDE RECORDS SUMMARY | 2024-03-18 05:52 | XMS_ITS | Encounter Summary ---
Author Organization [employer] Address [address] [place] [address] Care Team Providers Care Returning Officer Name Role Phone Matilde Calabrese MD Primary Care Provide r Encounter Details Date Type Department Care Team (Latest Contact Info) Description 03/07/2024 9:30 AM EST Clinical Support General Surgery - [place] [address] [place] [address] Visit for suture removal (Primary [...] given by: Patient Alternatives discussed: No treatment [place] protocol: Patient identity confirmed: Verbally with patient Location: Location: Head/neck Head/neck location: Neck Procedure details: Wound appearance: No signs of infection and good wound healing Post-procedure details: Post-removal: No dressing applied Procedure completion: Tolerated documented in this encounter Plan of Treatment Upcoming Encounters Date Type Department Care Team (Late st Contact Info) Description 03/25/2024 8:15 AM EST Office Visit Orthopedic Surgery - [place] [phone] [phone] Elias Agee, DPM [address] [phone] documented as of this encounter Procedures Procedure [...] given by: ??Patient ??Alternatives discussed: ??No treatment [place] protocol: ??Patient identity confirmed: ??Verbally with patient Location: ??Location: ??Head/neck ??Head/neck location: ??Neck Procedure details: ??Wound appearance: ??No signs of infection and good wound healing Post-procedure details: ??Post-removal: ??No dressing applied ??Procedure completion: ??Tolerated Nic Nieto MD IN CLINIC/BEDSIDE OR DERABLES documented in this encounter Visit Diagnoses Diagnosis Visit for suture removal- Primary documented in this encounter Care Teams Returning Officer Relationship Specialty Start Date End Date Matilde Calabrese MD [address] [place] [phone] PCP - General 11/22/23 documented as of this encounter
--- OUTSIDE RECORDS SUMMARY | 2024-03-18 05:52 | XMS_ITS | Encounter Summary ---
Author Organization [employer] Address [address] [place] [address] Care Team Providers Care Parts Sales Manager Name Role Phone Matilde Calabrese MD Primary Care Provide r Kourtney Su PharmD Unavailable [phone] Cecily Pinedo RN Unavailable [phone] Reason for Visit * Reason Comments Toe Pain Encounter Details Date Type Department Care Team ([facility] st Contact Info) Description 03/03/2024 10:00 AM EST Office Visit [facility] [address] [place] [address] Charity Luna DO [address] [place] [address] Right foot pain (Primary Dx) Social History [...] presents for Sick Visit. [place] comes to [place] c/o pain in the middle of his [...] pain. He has a foot doctor in [place] that he saw a couple mos ago for his nail care and thinks that he has an appt next week. 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: Patient health care coach used: No Pain Location: R foot Severity: [...] hyperglycemia, with long-term current use of insulin ([facility]) Obstructive sleep apnea syndrome Morbid obesity ([facility]) Mood disorder ([facility]) Gout Flat foot Essential (primary) hypertension Hidradenitis suppurativa of multiple sites Acute ankle pain Paraspinal muscle spasm JASBIR (acute kidney injury) ([facility]) Acquired hypothyroidism Hospital discharge follow-up Cellulitis Chronic right shoulder pain Mixed anxiety and depressive disorder Nail disease Diabetic polyneuropathy associated with type 2 diabetes mellitus ([facility]) Bilateral wrist pain LLQ abdominal pain Abscess [...] podiatry next week as scheduled -advised contact [facility] if sx change or worsen, he [...] Disp: 60 g, Rfl: 2 Continuous Glucose Commercial Solar Sales Consultant ([employer] [place]) device, Scan sensor every 8 hours, Disp: [...] Description 03/26/2024 9:30 AM EST Medication Management [facility] [address] [place] [phone] Kourtney Su, PharmD [address] [place] [phone] 05/06/2024 10:00 AM EDT Office Visit [facility] [address] [place] [phone] Matilde Calabrese MD [address] [place] [address] 06/03/2024 11:30 AM EDT Office Visit [facility] [address] [place] [address] Rodger Cole MD [address] [place] [address] documented as of this encounter Procedures Procedure Name Priority Date/Time Associated Diagnosis Comments XR FOOT 3+ VIEWS RIGHT STAT 03/03/2024 10:49 AM EST Right foot pain documented in this encounter Results * XR Foot 3+ Views Right (03/03/2024 10:49 AM EST) Anatomical Region Laterality Modality Lower Extremities, Foot Right Radiogra phic Imaging 03/03/2024 10:4 9 AM EST Narrative 03/03/2024 11:09 AM EST ?[facility] ?[address] ?[place] [address] ?XRay Report ? Signed ? Patient: Anderson,Raji ?MR#: [id number] ? : 1985 ?Acct:[id number] ? Age/Sex: 38 / M ?ADM Date: 03/03/24 ? Loc: HO.HHCX ? Attending Dr: Charity Luna DO ? Ordering Physician: Charity Luna DO ?? Date of Service: 03/03/24 ?? Procedure(s): XR foot RT min 3V ?? Accession Number(s): [id number] ? cc: Charity Luna DO ? EXAMINATION: [...] DD/ 1049 ? TD/TT: 03/03/24 1058 ? Screw Machine Operator: ? Procedure Note Rich, Image - 03/03/2024 [facility] [address] [place] [address] XRay Report Signed Patient: Cedrick Anderson#: [id number] : 1985Acct:[id number] Age/Sex: 38 / MADM Date: 03/03/24 Loc: HO.HHCX Attending Dr: Charity Luna DO Ordering Physician: Charity Luna DO Date of Service: 03/03/24 Procedure(s): XR foot RT min 3V Accession Number(s): [id number] cc: Charity Luna DO EXAMINATION: XR FOOT [...] 03/03/24 1106 DD/ 1049 TD/TT: 03/03/24 1058 Screw Machine Operator: Charity Luna DO IMG XR PROCEDURES Edited Res ult - Final documented in this encounter Visit Diagnoses Diagnosis Right foot pain- Primary Pain in soft tissues of limb documented in this encounter Additional Health Concerns Assessment Noted Time PHQ-9 Depression Total Score: 18 024 9:55 AM EST documented as of this encounter Care Teams Parts Sales Manager Relationship Specialty Start Date End Date Matilde Calabrese MD [address] [place] [phone] PCP - General Internal Medicine 11/23/23 Kourtney Su PharmD [address] [place] [phone] Pharmacist Internal Medicine 12/05/23 Cecily Pinedo RN [address] [place] [phone] Retail Field MerchandiserNetting Weaver 01/08/24 [facility] 01/09/24 documented as of this encounter
--- OUTSIDE RECORDS SUMMARY | 2024-03-18 05:52 | XMS_ITS | Encounter Summary ---
Author Organization [employer] Address [address] [place] [address] Care Team Providers Care Rod Drawer Name Role Phone Matilde Calabrese MD Primary Care Provide r Reason for Visit * Reason Comments Eye Pain Right eye pain since Sunday Encounter Details Date Type Department Care Team (Late st Contact Info) Description 03/09/2024 10:05 PM EST - 03/10/2024 1:10 AM EST Emergency [facility] Emergency [address] [place] [address] Ocular migraine (Primary Dx) Discharge [...] or require a referral, a follow-up doctor production quality manager for the emergency department will be provided [...] following to make arrangements to follow up. [facility] * Attachments The following attachments cannot be sent through Care Everywhere. * Migraine Headache (Azeri) documented in this encounter Discharge Disposition Disposition [...] ??? OTHER SURGICAL HISTORY Left 04/16/2023 PROCEDURE: MA I&D BELOW FASCIA FOOT 1 BURSAL SPACE ??? OTHER SURGICAL HISTORY Left 04/18/2023 PROCEDURE: MA INCISION BONE CORTEX FOOT; COMMENT: left, distal hallux ??? OTHER SURGICAL HISTORY 04/18/2023 PROCEDURE: MA REPAIR INTERMEDIATE N/H/F/XTRNL GENT 2.5CM/< ??? TOE [...] drop (2 drops Right Eye Given 03/09/24 6135) fluorescein 1 mg ophthalmic strip 1 strip (1 strip Right Eye Given 03/09/24 5171) Medical Decision Making Differential diagnose include but [...] and reevaluate. ED Course as of 03/10/[address] Sun Mar 09, 2024 2322 Pressure is normal [...] AM EST Office Visit Orthopedic Surgery - [place] [address] [phone] Elias Agee DPM [address] [address] documented as of this encounter Visit Diagnoses [...] PROVIDER.) documented in this encounter Care Teams Rod Drawer Relationship Specialty Start Date End Date Matilde Calabrese MD [address] [place] [phone] PCP - General 11/22/23 documented as of this encounter
--- OUTSIDE RECORDS SUMMARY | 2024-03-18 05:52 | XMS_ITS | Encounter Summary ---
Author Organization [employer] Address [address] [facility] [address] [place] [address] Care Team Providers Care Roadway Engineer Name Role Phone Matilde Calabrese MD Primary Care Provide r Kourtney Su PharmD Unavailable [phone] Cecily Pinedo RN Unavailable [phone] Reason for Visit * Reason Comments Transition Of Care (Tcm) Encounter Details Date Type Department Care Team ([facility] st Contact Info) Description 03/11/2024 Patient Outreach [facility] [address] [place] [address] Matilde Calabrese MD [address] [place] [address] Transition Of Care (Tcm) Social History Tobacco [...] 03/11/24 0849 Hospital Discharges and Admission for [facility] Type of Visit Emergency Department Date of Admission/Visit 03/09/24 (10:05pm) Date of Discharge 03/10/24 (10am) Facility [facility] Diagnosis Migraine with aura, not intractable, without status migrainosus Disposition Discharged Home * Eli Ramsay RN - 03/11/2024 8:49 AM EST Transition of Care Note Raji is going through a recent transition of care. Hospital Discharges and Admission for PCM Type of Visit: Emergency Department Date of Admission/Visit: 03/09/24 Date of Discharge: 03/09/24 Facility: [facility] Diagnosis: Ocular migraine Disposition: Discharged Home Follow-Up Actions Follow-Up Needed: Provider appointment Follow-Up Outcome: Spoke to Patient Initial Contact Date: 03/11/24 The full discharge summary is available on [facility] Recent Visits Date Type Provider Dept 03/03/24 Office Visit Charity Luna DO [facility] 02/15/24 Office Visit BRITTANY Mott [facility] 02/02/24 Office Visit Wendy Wright NP [facility] 01/08/24 Office Visit Erin Bueno MD [facility] 12/27/23 Office Visit Matilde Hudson MD [facility] Medicine 11/14/23 Office Visit Matilde Hudson MD [facility] Medicine 03/20/23 Office Visit Matilde Hudson MD [facility] Medicine Showing recent visits within past 540 days with a meds authorizing provider and meeting all other requirements Today's Visits Date Type Provider Dept 03/11/24 Appointment Christian Fuchs MD [facility] Medicine Showing today's visits with a meds authorizing provider and meeting all other requirements Future Appointments Date Type Provider Dept 03/18/24 Appointment Kourtney Su PharmD [facility] Medicine Showing future appointments within next 150 days with a meds authorizing provider and meeting all other requirements TC placed to patient [phone] to status check. Patient reports his s/s [...] ED whichwas WNL. Patient denies having an candy puller but is scheduled to see one on 05/20/24. Patient scheduled for re-evaluation for today at 3pm with Dr. Little d/t continued s/s. Patient to f/u PRN. documented in this encounter Plan of Treatment Upcoming Encounters Date Type Department Care Team (Late st Contact Info) Description 03/26/2024 9:30 AM EST Medication Management [facility] MED[facility]INE [address] [place] [address] Kourtney Su, Samara [address] [place] [address] 05/06/2024 10:00 AM EDT Office Visit [facility] [address] [place] [address] Matilde Calabrese MD [address] [place], [place] [phone] 06/03/2024 11:30 AM EDT Office Visit [facility] [address] [place], [place] [phone] Rodger Cole MD [address] [place], [place] [phone] documented as of this encounter Visit Diagnoses Not on filedocumented in this encounter Additional Health Concerns Assessment Noted Time PHQ-9 Depression Total Score: 18 024 9:55 AM EST documented as of this encounter Care Teams Roadway Engineer Relationship Specialty Start Date End Date Matilde Calabrese MD [address] [place] [address] PCP - General Internal Medicine 11/23/23 Kourtney Su, EmmaD [address] [place] [address] Pharmacist Internal Medicine 12/05/23 Cecily Pinedo, ROSA [address] [place] [phone] [employer] 01/08/24 [facility] 01/09/24 documented as of this encounter
--- OUTSIDE RECORDS SUMMARY | 2024-03-18 05:52 | XMS_ITS | Encounter Summary ---
Author Organization [employer] Address [address] [place] [address] Care Team Providers Care Digital Communications Manager Name Role Phone Matilde Calabrese MD Primary Care Provide r Reason for Visit * Reason Comments Follow-up Diabetic foot exam Encounter Details Date Type Department Care Team ([facility] st Contact Info) Description 03/11/2024 8:45 AM EST Office Visit Orthopedic Surgery - [place] [address] [phone] Elias Agee, DPM [address] [address] Cellulitis of left foot (Primary Dx); Dermatophytosis [...] this encounter Progress Notes * Elias Agee, DPM - 03/11/2024 8:45 AM EST Last PCP visit:Referring MD 11-21-23 Dr Tristan Jackson Presents today as [...] AM EST Office Visit Orthopedic Surgery - [place] [address] [phone] Elias Agee DPM [address] [address] documented as of this encounter Visit Diagnoses [...] limb documented in this encounter Care Teams Digital Communications Manager Relationship Specialty Start Date End Date Matilde Calabrese MD [address] [place] [phone] PCP - General 11/22/23 documented as of this encounter
--- OUTSIDE RECORDS SUMMARY | 2024-03-18 05:52 | XMS_ITS | Encounter Summary ---
Author Organization [employer] Address [address] [facility] [address] [place] [address] Care Team Providers Care Photographic Process Worker Name Role Phone Matilde Calabrese MD Primary Care Provide r Kourtney Su PharmD Unavailable [phone] Cecily Pinedo RN Unavailable [phone] Encounter Details Date Type Department Care Team (Late st Contact Info) Description 02/26/2024 Orders Only [facility] MEDICINE [address] [place], [place] [phone] Matilde Calabrese MD [address] [place] [address] Constipation, unspecified constipation type (Primary Dx) Social [...] the past 12 months, has t he [employer], oil or water [employer] threatened to shut off services in your [...] Description 03/26/2024 9:30 AM EST Medication Management [facility] [address] [place] [phone] Kourtney Su, PharmD [address] [place] [address] 05/06/2024 10:00 AM EDT Office Visit [facility] [address] [place] [phone] Matilde Calabrese MD [address] [place] [address] 06/03/2024 11:30 AM EDT Office Visit [facility] [address] [place] [address] Rodger Cole MD [address] [place] [address] documented as of this encounter Visit Diagnoses Diagnosis Constipation, unspecified constipation type- Primary documented in this encounter Additional Health Concerns Assessment Noted Time PHQ-9 Depression Total Score: 18 024 9:55 AM EST documented as of this encounter Care Teams Photographic Process Worker Relationship Specialty Start Date End Date Matilde Calabrees MD [address] [place] [address] PCP - General Internal Medicine 11/23/23 Kourtney Su PharmD [address] [place] [address] Pharmacist Internal Medicine 12/05/23 Cecily Pinedo, ROSA [address] [place] [phone] [employer] Manager[employer] Stamper 01/08/24 [facility] 01/09/24 documented as of this encounter
--- OUTSIDE RECORDS SUMMARY | 2024-03-18 05:52 | XMS_ITS | Encounter Summary ---
Author Organization [email or web address] Address [address] [place] [address] Care Team Providers Care Sales Development Consultant Name Role Phone Matilde Calabrese MD Primary Care Provide r Reason for Referral * Consultation (Routine) - Authorized Specialty Diagnoses / Procedures Referred By Carola mujica Referred To Contact Otolaryngology Car Ochoa PA [address] [place] [address] Referral ID Status Reason Start Date Expiration Date Visits Requested Visits Authorized [id number] Authorized Specialty Services Required 03/16/2024 03/16/2025 1 1 Reason for Visit * Reason Comments Eye Problem Bilat eye pain, told either issue with tear duct or his DM Facial Pain R sided facial pain Encounter Details Date Type Department Care Team (Late st Contact Info) Description 03/16/2024 12:17 PM EST - 03/16/2024 6:31 PM EST Emergency [facility] Emergency [address] [place] [id number] Eloise Garber, [address] [place] [address] MD [address] [place] [address] Acute nonintractable headache, unspecified headache type (Primary [...] Mass Index 42.57 03/16/2024 8:45 AM EST documented in this encounter Functional [...] encounter Discharge Instructions * Discharge Instructions* SHERI Márquez - 03/16/2024 5:50 PM EST Seen today for headache I suspect her headache is more likely due to an underlying migraine. Your CAT scan did show that you have some inflammation in the area of your mastoid process which is the area just behind your ear. This could be related to the surgery recently had or it could be related ann infection. I am less inclined to believe that this is an infection however out of an abundance of caution I am giving you a medicine called levofloxacin which you should start taking tomorrow you received your first dose today in the emergency department. Please return for any new or worsening concerning symptoms. * Attachments The following attachments cannot be sent through Care Everywhere. * Headache (Belarusian) documented in this encounter Medications at Time of Discharge Medication Sig Dispensed Refills Start Date End Date amoxicillin-clavulanate (Augmentin) 875-125 mg per tablet Take 1 tablet by mouth 2 (two) times a day. 20 tablet 03/11/2024 levoFLOXacin (LEVAQUIN) 500 mg tablet Take 1 tablet (500 mg total) by mouth 1 (one) time each day for 7 days. 7 tablet 03/16/2024 03/23/2024 documented as of this encounter Ordered Prescriptions Prescription Sig Dispensed Refills Start Date End Da te levoFLOXacin (LEVAQUIN) 500 mg tablet Take 1 tablet (500 mg total) by mouth 1 (one) time each day for 7 days. 7 tablet 03/16/2024 03/23/2024 documented in this encounter Discharge Disposition Disposition Code Departure Means Destination Comment s Home or Self Care Patient verbalizing understanding to follow up with PCP after discharge and return to ED with worsening symptoms. Ambulating in ED with steady gait independently. Educated to take antibiotics with food for possible GI upset and in full without abruptly stopping. documented in this encounter Progress Notes * Alonso Way MD - 03/16/2024 6:14 PM EST Raji Anderson Patient signed out to me by Dr. Garber. I was told to reassess the patient after he has been medicated. The workup was unremarkable. If patient felt improved, plan was for discharge according to the primary team taking care of the patient. Upon my evaluation, patient does not have any acute complaints; he reports he had resolved after the medications.. I have advised the patient to follow-up with her primary care doctor. Patient was given strict return precautions. Patient understood and agreed with plan. * Wilma Chirinos RN - 03/16/2024 8:47 AM EST Pt was seen here for R eye pain with unknown dx. Pt had CT scan outpatient by atmospheric technician but has not had results yet. Pt states that they they it may be due to blocked tear ducts or diabetes related. Pt presents today with increasing pain bilateral and now unable to tolerate food or drinks. Pt states vomiting since 0200 this am. Blood sugar in triage 202 * Eloise Garber DO - 03/16/2024 8:39 AM EST Emergency Medicine Note Patient Name: Raji Anderson Initial Evaluation: 03/16/2024 : 1985 Patient's PCP: Matilde Hudson MD Emergency Physician: Eloise Garber DO History of Present Illness Chief Complaint: Chief Complaint Patient presents with Eye Problem Bilat eye pain, told either issue with tear duct or his DM Facial Pain R sided facial pain HPI: 38-year-old male here today complaining of right eye pain now extending over to his left eye and a frontal headache. States he had a CT outpatient on or Sunday has not gotten the results yet he did see an atmospheric technician was told that he had blocked tear block or it was related to his diabetes he is not quite sure why he had the headache. Patient here today since 2 AM vomiting headache unable to tolerate p.o. Gradual onset of symptoms. Patient does have a history of diabetes and thyroid disorder that he is now just getting under control. Denies any vertigo chest pain respiratory distress abdominal pain or diarrhea. No other sick contacts. Denies any congestion or URI symptoms. ROS: I have performed a ROS with the pertinent positives and negatives documented in the history ofpresent illness. Previous History Past Medical History: Diagnosis Date Diabetes mellitus (CMS/HCC) Disease of thyroid gland Hypertension Sleep apnea Past Surgical History: Procedure Laterality Date OTHER SURGICAL HISTORY Left 04/16/2023 PROCEDURE: [place] I&D BELOW FASCIA FOOT 1 BURSAL SPACE OTHER SURGICAL HISTORY Left 04/18/2023 PROCEDURE: [place] INCISION BONE CORTEX FOOT; COMMENT: left, distal hallux OTHER SURGICAL HISTORY 04/18/2023 PROCEDURE: [place] REPAIR INTERMEDIATE N/H/F/XTRNL GENT 2.5CM/< TOE SURGERY Left Social History Tobacco Use Smoking status: Former Types: Cigarettes Substance Use Topics Alcohol use: Not Currently Drug use: Yes Types: Marijuana/Cannabis No family history on file. is allergic to ibuprofen and iodinated contrast media. No current facility-administered medications on file prior to encounter. Current Outpatient Medications on File Prior to Encounter Medication Sig Dispense Refill amoxicillin-clavulanate (Augmentin) 875-125 mg per tablet Take 1 tablet by mouth 2 (two) times a day. 20 tablet 0 Physical Exam ED Triage Vitals [03/16/24 0845] Temp Heart Rate Resp BP 37 ??C (98.6 ??F) 88 17 (!) 144/94 SpO2 Temp Source Heart Rate Source Patient Position 100 % Oral -- -- BP Location FiO2 (%) -- -- Physical Exam Vitals and nursing note reviewed. Constitutional: Appearance: Normal appearance. HENT: Head: Normocephalic. Comments: No periorbital edema erythema or warmth noted no entrapment no discharge noted denies conjunctiva and sclera clear. Nose: Nose normal. Mouth/Throat: Mouth: Mucous membranes are dry. Eyes: Extraocular Movements: Extraocular movements intact. Pupils: Pupils are equal, round, and reactive to light. Cardiovascular: Rate and Rhythm: Normal rate and regular rhythm. Pulmonary: Effort: Pulmonary effort is normal. Breath sounds: Normal breath sounds. Comments: No stridor mucous membranes moist. Positive erythema noted. Oropharyngeal tonsils with exudate. Uvula midline. No trismus. Patent airway. Nasal congestion noted. Musculoskeletal: General: Normal range of motion. Cervical back: Normal range of motion and neck supple. Skin: General: Skin is warm. Capillary Refill: Capillary refill takes less than 2 seconds. Neurological: General: No focal deficit present. Mental Status: He is alert and oriented to person, place, and time. Psychiatric: Mood and Affect: Mood normal. Behavior: Behavior normal. Results Labs Reviewed COMPREHENSIVE METABOLIC PANEL - Abnormal Result Value Sodium 133 Potassium 4.3 Chloride 102 CO2 29 Anion Gap 2 (*) Glucose 201 (*) BUN 14 Creatinine 0.97 eGFR 103 BUN/Creatinine Ratio 14.4 Calcium 9.8 AST (SGOT) 15 ALT (SGPT) 25 Alkaline Phosphatase 81 Total Protein 8.6 (*) Albumin 4.5 Total Bilirubin 0.6 CBC WITH AUTO DIFFERENTIAL - Abnormal WBC 11.3 (*) RBC 4.70 Hemoglobin 14.1 Hematocrit 40.5 (*) MCV 86.0 MCH 29.9 MCHC 34.8 RDW 11.9 Platelets 323 MPV 9.9 NRBC 0.0 NRBC Absolute 0.00 Neutrophils Relative 65.0 Lymphocytes Relative 24.6 Monocytes Relative 6.4 Eosinophils Relative 2.7 Basophils Relative 0.9 Immature Granulocytes Relative 0.4 Neutrophils Absolute 7.36 (*) Lymphocytes Absolute 2.79 Monocytes Absolute 0.72 Eosinophils Absolute 0.31 Basophils Absolute 0.10 Immature Granulocytes Absolute 0.04 (*) THYROID STIMULATING HORMONE WITH REFLEX TO FREE T4 AND FREE T3 - Abnormal TSH 4.77 (*) RESPIRATORY VIRUS PANEL MOLECULAR STUDY - Normal Adenovirus Detection by PCR Not Detected Influenza A PCR Not Detected Influenza B PCR Not Detected Coronavirus 229E Not Detected Coronavirus HKU1 Not Detected Coronavirus OC43 Not Detected Coronavirus NL63 Not Detected Parainfluenza Virus 1 Not Detected Parainfluenza Virus 2 Not Detected Parainfluenza Virus 3 Not Detected Parainfluenza Virus 4 Not Detected RSV PCR Not Detected Human Metapneumovirus A and B Not Detected Rhinovirus/Enterovirus Not Detected Bordetella pertussis Not Detected Bordetella parapertussis Not Detected Mycoplasma pneumo by PCR Not Detected Chlamydia pneumoniae Not Detected SARS COV-2 Not Detected Narrative: Testing was performed using the [employer] Respiratory Pathogen PCR Assay. All results must [...] that are below the limit of detection. LIPASE - Normal Lipase 38 LACTATE, WITH REFLEX - Normal LACTIC ACID 1.1 FREE THYROXINE WITH REFLEX TO FREE TRIIODOTHYRONINE - Normal Free T4 1.29 TRIIODOTHYRONINE FREE - Normal T3, Free 328 CBC AND DIFFERENTIAL Narrative: The following orders were created for panel order CBC and differential. Procedure Abnormality Status --------- ------ CBC auto differential[[id number]] Abnormal Final result Please view results for these tests on the individual orders. Abnormal Labs Reviewed COMPREHENSIVE METABOLIC PANEL - Abnormal; Notable for the following components: Result Value Anion Gap 2 (*) Glucose 201 (*) Total Protein 8.6 (*) All other components within normal limits CBC WITH AUTO DIFFERENTIAL - Abnormal; Notable for the following components: WBC 11.3 (*) Hematocrit 40.5 (*) Neutrophils Absolute 7.36 (*) Immature Granulocytes Absolute 0.04 (*) All other components within normal limits THYROID STIMULATING HORMONE WITH REFLEX TO FREE T4 AND FREE T3 - Abnormal; Notable for the following components: TSH 4.77 (*) All other components within normal limits CT Head wo Contrast Final Result Impression: 1. No significant intracranial abnormality identified. 2. Partial opacification of the mastoid air cells, likely infectious/inflammatory. Domee SHERI ([id number]) -------- FINAL REPORT -------- Dictated By: Edilma Camara Dictated Date: 03/16/2024 14:30 ET Assigned Physician: Edilma Camara Reviewed and Electronically Signed By: Edilma Camara Signed Date: 03/16/2024 14:32 ET Workstation ID: [id number] Transcribed By: Self Edit Transcribed Date: 03/16/2024 14:30 ET I have discussed the incidental/abnormal imaging and/or lab abnormalities with the patient and haveinstructed them the need for further evaluation and workup with their primary care doctor. I have provided the patient with a paper copy of the abnormality. The laboratory results, imaging results and other diagnostic exam results were reviewed in the EMR. EKG Interpretation Critical Care Time None ? Differential Diagnosis Intracranial bleed Migraine headache Tension headache COVID-19 Medical Decision Making Well-appearing nontoxic non-lethargic afebrile. Ordered Solu-Medrol 125 IV along with 1 L of normalsaline Dilaudid 1 mg IV along with some Zofran [address] ordered. Patient evaluated and discussed with my supervising physician. Pending head CT Medications levoFLOXacin (LEVAQUIN) tablet 500 mg (has no administration in time range) ondansetron (PF) (ZOFRAN) injection 4 mg (4 mg intravenous Given 03/16/24 1500) sodium chloride 0.9 % bolus 1,000 mL (1,000 mL intravenous New Bag 03/16/24 1512) methylPREDNISolone sodium succ (SOLU-Medrol) injection 125 mg (125 mg intravenous Given 03/16/24 1500) HYDROmorphone (PF) (DILAUDID) injection 1 mg (1 mg intravenous Given 03/16/24 1459) Amount and/or Complexity of Data Reviewed External Data Reviewed: Encounters reviewed in Chart Review. Details: Labs: ordered. Decision-making details documented in ED Course. Radiology: ordered. Decision-making details documented in ED Course. ECG/medicine tests: ordered. Decision-making details documented in ED Course. Procedures Procedures Diagnosis No diagnosis found. Disposition Data Unavailable ED Prescriptions None Physician Attestation This is a split/shared visit with SHERI Ayala. I personally performed the medical decision making (MDM) for the care of this patient on 03/16/24 as documented below 38-year-old male presenting to the hospital for persistent headache. Patient CT imaging did show opacification of mastoid however he has no tenderness in the mastoid. Do not think this mastoiditis. No intracranial abnormality. Patient was complaining of some component of photophobia. IV steroids, IV Dilaudid, IV Zofran and IV fluid has been ordered for the patient at this time. Patient be signed out to oncoming provider pending reassessment after medication. Eloise Garber DO 03/16/24 4:18 PM EST DO Rosa Luque PA 03/16/24 1324 SHERI Ayala 03/16/24 1418 SHERI Ayala 03/16/24 1420 Eloise Garber DO 03/16/24 1619 documented in this encounter Plan of Treatment Upcoming Encounters Date Type Department Care Team (Late st Contact Info) Description 03/25/2024 8:15 AM EST Office Visit Orthopedic Surgery - [place] [address] [facility] [address] [place] [address] Elias Agee, DPM [address] [facility] [address] [place] [address] Scheduled Referrals Name Type Priority Associated Diagnoses Order Schedule Ambulatory referral to ENT Outpatient Referral Routine 1 Occurrence s starting 03/16/2024 until 03/16/2025 documented as of this encounter Procedures Procedure Name Priority Date/Time Associated Diagnosis Comments RESPIRATORY VIRUS PANEL MOLECULAR STUDY STAT 03/16/2024 2:[address] HEAD WO CONTRAST STAT 03/16/2024 2 :11 PM EST LACTATE, WITH REFLEX STAT 03/16/2024 10:42 AM EST THYROID STIMULATING HORMONE WITH REFLEX TO FREE T4 AND FREE T3 STAT Add-on 03/16/2024 10:42 AM EST FREE THYROXINE WITH REFLEX TO FREE TRIIODOTHYRONINE STAT 03/16/2024 10:42 AM EST CBC WITH AUTO DIFFERENTIAL STAT 03/16/2024 10:42 AM EST CBC AND DIFFERENTIAL STAT 03/16/2024 10:42 AM EST TRIIODOTHYRONINE FREE STAT 03/16/2024 10:42 AM EST LIPASE STAT 03/16/2024 10:42 AM EST COMPREHENSIVE METABOLIC PANEL STAT 03/16/2024 10:42 AM EST documented in this encounter Results * Respiratory virus panel molecular study (03/16/2024 2:28 PM EST) Adenovirus Detection by PCR Not Detected Not Detected LAB MICROBIOLOGY METHOD 03/16/2024 3:55 PM EST [facility] Influenza A PCR Not Detected Not Detected LAB MICROBIOLOGY METHOD 03/16/2024 3:55 PM EST [facility] Influenza B PCR Not Detected Not Detected LAB MICROBIOLOGY METHOD 03/16/2024 3:55 PM [facility] Coronavirus 229E Not Detected Not Detected LAB MICROBIOLOGY METHOD 03/16/2024 3:55 PM EST [facility] Coronavirus HKU1 Not Detected Not Detected LAB MICROBIOLOGY METHOD 03/16/2024 3:55 PM [facility] Coronavirus OC43 Not Detected Not Detected LAB MICROBIOLOGY METHOD 03/16/2024 3:55 PM [facility] Coronavirus NL63 Not Detected Not Detected LAB MICROBIOLOGY METHOD 03/16/2024 3:55 PM [facility] Parainfluenza Virus 1 Not Detected Not Detected LAB MICROBIOLOGY METHOD 03/16/2024 3:55 PM [facility] Parainfluenza Virus 2 Not Detected Not Detected LAB MICROBIOLOGY METHOD 03/16/2024 3:55 PM [facility] Parainfluenza Virus 3 Not Detected Not Detected LAB MICROBIOLOGY METHOD 03/16/2024 3:55 PM [facility] Parainfluenza Virus 4 Not Detected Not Detected LAB MICROBIOLOGY METHOD 03/16/2024 3:55 PM [facility] RSV PCR Not Detected Not Detected LAB MICROBIOLOGY METHOD 03/16/2024 3:55 PM [facility] Human Metapneumovirus A and B Not Detected Not Detected LAB MICROBIOLOGY METHOD 03/16/2024 3:55 PM [facility] Rhinovirus/Entero virus Not Detected Not Detected LAB MICROBIOLOGY METHOD 03/16/2024 3:55 PM [facility] Bordetella pertussis Not Detected Not Detected LAB MICROBIOLOGY METHOD 03/16/2024 3:55 PM [facility] Bordetella parapertussis Not Detected Not Detected LAB MICROBIOLOGY METHOD 03/16/2024 3:55 PM [facility] Mycoplasma pneumo by PCR Not Detected Not Detected LAB MICROBIOLOGY METHOD 03/16/2024 3:55 PM [facility] Chlamydia pneumoniae Not Detected Not Detected LAB MICROBIOLOGY METHOD 03/16/2024 3:55 PM EST [facility] SARS COV-2 Not Detected Not Detected LAB MICROBIOLOGY METHOD 03/16/2024 3:55 PM EST [facility] Swab Both anterior nares / Unknown Non-blood Collection / Unknown 03/16/2024 2:28 PM EST 03/16/2024 2:51 PM EST Narrative [facility] - 03/16/2024 3:55 PM EST Testing was performed using the [employer] Respiratory Pathogen PCR Assay. All results must [...] WADE LAB MICROBIOLO GY - GENERAL ORDERABLES [facility] [address] [place] [address], * CT Head wo Contrast (03/16/2024 2:11 PM EST) Anatomical Region Laterality Modality Head and Neck Computed Tomogra phy 03/16/2024 2:30 PM EST Impressions 03/16/2024 2:32 PM EST Impression: 1. No significant intracranial abnormality identified. 2. Partial opacification of the mastoid air cells, likely infectious/inflammatory. Telelv WADE ([id number]) -------- FINAL REPORT -------- Dictated By: Edilma Camara Dictated Date: 03/16/2024 14:30 ET Assigned Physician: Edilma Camara Reviewed and Electronically Signed By: Edilma Camara Signed Date: 03/16/2024 14:32 ET Workstation ID: [id number] Transcribed By: Self Edit Transcribed Date: 03/16/2024 14:30 ET Narrative 03/16/2024 2:32 PM EST History: Headache. Classic migraine. Comparison: No comparison imaging at this institution. Technique: Contiguous axial images were obtained at 2.5 mm intervals through the posterior fossa and at 5 mm intervals through the remainder of the head without intravenous contrast. DLP: 900.99 mGy/cm GE [employer] Microelectrónicapeed VCT Iterative reconstruction technique Findings: The ventricular [...] without intravenous contrast. DLP: 900.99 mGy/cm GE [employer] Microelectrónicapeed VCT Iterative reconstruction technique Findings: The ventricular [...] opacification of the mastoid air cells, likelyinfectious/inflammatory. Telerad PA ([id number]) -------- FINAL REPORT -------- Dictated By: Edilma Camara Dictated Date: 03/16/2024 14:30 ET Assigned Physician: Edilma Camara Reviewed and Electronically Signed By: Edilma Camara Signed Date: 03/16/2024 14:32 ET Workstation ID: [id number] Transcribed By: Self Edit Transcribed Date: 03/16/2024 14:30 ET Rosa WADE IMG CT PROCEDU RES * Triiodothyronine free (03/16/2024 10:42 AM EST) T3, Free 328 230 - 420 pcg/dL LAB CHEMISTRY METHOD 03/16/2024 3:49 PM EST [facility] Blood Venous blood specimen / Unknown Venipuncture / Unknown 03/16/2024 10:42 AM EST 03/16/2024 10:52 AM EST Rosa WADE LAB BLOOD RAJ CARTER Performing Organization Address [facility]/ZIP Co de Phone Number [facility] [address] [place] [address], * Free thyroxine with reflex to free triiodothyronine (03/16/2024 10:42 AM EST) Free T4 1.29 0.70 - 1.80 ng/dL LAB CHEMISTRY METHOD 03/16/2024 3:21 PM EST [facility] Blood Venous blood specimen / Unknown Venipuncture / Unknown 03/16/2024 10:42 AM EST 03/16/2024 10:52 AM EST Rosa WADE LAB BLOOD ORDE GOMEZSTEPHANIE Performing Organization Address City/[facility]/ZIP Co de Phone Number [facility] [address] [place] [address], * (ABNORMAL) Thyroid stimulating hormone with reflex to free t4 and free t3 (TSH Reflex) (03/16/2024 10:42 AM EST) TSH 4.77(H) 0.40 - 4.00 mcIU/mL LAB CHEMISTRY METHOD 03/16/2024 2:53 PM [facility] Blood Venous blood specimen / Unknown Venipuncture / Unknown 03/16/2024 10:42 AM EST 03/16/2024 10:52 AM EST Rosa WADE LAB BLOOD RAJ MACHADO [facility] [address] [place] [address], * (ABNORMAL) CBC auto differential (03/16/2024 10:42 AM EST) WBC 11.3(H) 4.8 - 10.8 K/mcL LAB HEMETOLOGY METHOD 03/16/2024 10:57 AM [facility] RBC 4.70 4.50 - 5.50 M/[facility] LAB HEMETOLOGY METHOD 03/16/2024 10:57 AM [facility] Hemoglobin 14.1 13.5 - 17.5 g/dL LAB HEMETOLOGY METHOD 03/16/2024 10:57 AM [facility] Hematocrit 40.5(L) 42.0 - 54.0 % LAB HEMETOLOGY METHOD 03/16/2024 10:57 AM [facility] MCV 86.0 79.0 - 98.0 FL LAB HEMETOLOGY METHOD 03/16/2024 10:57 AM [facility] MCH 29.9 27.0 - 32.0 pcg LAB HEMETOLOGY METHOD 03/16/2024 10:57 AM [facility] MCHC 34.8 32.0 - 37.0 g/dL LAB HEMETOLOGY METHOD 03/16/2024 10:57 AM [facility] RDW 11.9 11.0 - 15.0 % LAB HEMETOLOGY METHOD 03/16/2024 10:57 AM [facility] Platelets 323 130 - 400 K/mcL LAB HEMETOLOGY METHOD 03/16/2024 10:57 AM [facility] MPV 9.9 7.0 - 11.0 FL LAB HEMETOLOGY METHOD 03/16/2024 10:57 AM [facility] NRBC 0.0 <1.0 % LAB HEMETOLOGY METHOD 03/16/2024 10:57 AM [facility] NRBC Absolute 0.00 <0.10 K/mcL LAB HEMETOLOGY METHOD 03/16/2024 10:57 AM [facility] Neutrophils Relative 65.0 % LAB HEMETOLOGY METHOD 03/16/2024 10:57 AM [facility] Lymphocytes Relative 24.6 % LAB HEMETOLOGY METHOD 03/16/2024 10:57 AM [facility] Monocytes Relative 6.4 % LAB HEMETOLOGY METHOD 03/16/2024 10:57 AM [facility] Eosinophils Relative 2.7 % LAB HEMETOLOGY METHOD 03/16/2024 10:57 AM [facility] Basophils Relative 0.9 % LAB HEMETOLOGY METHOD 03/16/2024 10:57 AM [facility] Immature Granulocytes Relative 0.4 % LAB HEMETOLOGY METHOD 03/16/2024 10:57 AM [facility] Neutrophils Absolute 7.36(H) 1.50 - 7.00 K/mcL LAB HEMETOLOGY METHOD 03/16/2024 10:57 AM [facility] Lymphocytes Absolute 2.79 1.00 - 5.00 K/mcL LAB HEMETOLOGY METHOD 03/16/2024 10:57 AM [facility] Monocytes Absolute 0.72 0.20 - 1.00 K/mcL LAB HEMETOLOGY METHOD 03/16/2024 10:57 AM [facility] Eosinophils Absolute 0.31 0.00 - 0.50 K/[facility] HEMETOLOGY METHOD 03/16/2024 10:57 AM EST [facility] Basophils Absolute 0.10 0.00 - 0.20 K/[facility] HEMETOLOGY METHOD 03/16/2024 10:57 AM EST [facility] Immature Granulocytes Absolute 0.04(H) 0.00 - 0.03 K/[facility] HEMETOLOGY METHOD 03/16/2024 10:57 AM EST [facility] Blood Venous blood specimen / Unknown Venipuncture / Unknown 03/16/2024 10:42 AM EST 03/16/2024 10:52 AM EST Eloise Garber LAB BLOOD ORDERAB LES Performing Organization Address [facility]/ZIP Co de Phone Number [facility] [address] [place] [address], * Lactate, with reflex (03/16/2024 10:42 AM EST) LACTIC ACID 1.1 0.4 - 2.0 mmol/L LAB CHEMISTRY METHOD 03/16/2024 11:42 AM EST [facility] [facility] Blood Venous blood specimen / Unknown Venipuncture / Unknown 03/16/2024 10:42 AM EST 03/16/2024 11:06 AM EST [facility] Garber LAB BLOOD ORDERAB LES [facility] [address] [place] [address], [place] [phone] * Lipase (03/16/2024 10:42 AM EST) Lipase 38 13 - 75 unit/L LAB CHEMISTRY METHOD 03/16/2024 11:31 AM EST [facility] Blood Venous blood specimen / Unknown Venipuncture / Unknown 03/16/2024 10:42 AM EST 03/16/2024 10:52 AM EST Eloise Garber DO LAB BLOOD ORDERAB LES [facility] [address] [place] [address], [place] [phone] * (ABNORMAL) Comprehensive metabolic panel (03/16/2024 10:42 AM EST) Sodium 133 133 - 145 mmol/L LAB CHEMISTRY METHOD 03/16/2024 11:33 AM EST [facility] Potassium 4.3 3.5 - 5.5 mmol/L LAB CHEMISTRY METHOD 03/16/2024 11:33 AM [facility] Chloride 102 96 - 110 mmol/L LAB CHEMISTRY METHOD 03/16/2024 11:33 AM [facility] CO2 29 21 - 32 mmol/L LAB CHEMISTRY METHOD 03/16/2024 11:33 AM EST [facility] Anion Gap 2(L) 3 - 11 LAB CHEMISTRY METHOD 03/16/2024 11:33 AM [facility] Glucose 201(H) 70 - 100 mg/dL LAB CHEMISTRY METHOD 03/16/2024 11:33 AM [facility] BUN 14 5 - 25 mg/dL LAB CHEMISTRY METHOD 03/16/2024 11:33 AM [facility] Creatinine 0.97 0.70 - 1.30 mg/dL LAB CHEMISTRY METHOD 03/16/2024 11:33 AM [facility] eGFR 103 >=60 mL/min/1. 73m2 LAB CHEMISTRY METHOD 03/16/2024 11:33 AM [facility] Comment:Calculation based on the??Chronic Kidney Disease Epidemiology Collaboration (CKD-EPI) equation refit??without adjustment for race. BUN/Creatinine Ratio 14.4 LAB CHEMISTRY METHOD 03/16/2024 11:33 AM [facility] Calcium 9.8 8.5 - 10.5 mg/dL LAB CHEMISTRY METHOD 03/16/2024 11:33 AM [facility] AST (SGOT) 15 10 - 42 unit/L LAB CHEMISTRY METHOD 03/16/2024 11:33 AM [facility] ALT (SGPT) 25 10 - 60 unit/L LAB CHEMISTRY METHOD 03/16/2024 11:33 AM [facility] Alkaline Phosphatase 81 42 - 121 unit/L LAB CHEMISTRY METHOD 03/16/2024 11:33 AM [facility] Total Protein 8.6(H) 6.0 - 8.0 g/dL LAB CHEMISTRY METHOD 03/16/2024 11:33 AM [facility] Albumin 4.5 3.2 - 5.0 g/dL LAB CHEMISTRY METHOD 03/16/2024 11:33 AM [facility] Total Bilirubin 0.6 0.0 - 1.4 mg/dL LAB CHEMISTRY METHOD 03/16/2024 11:33 AM [facility] Blood Venous blood specimen / Unknown Venipuncture / Unknown 03/16/2024 10:42 AM EST 03/16/2024 10:52 AM EST [facility] Winchester Jcarlos ALVARADO LAB BLOOD ORDERAB LES [facility] Organization Address City/State/ZIP Co de Phone Number [facility] [address] [place] [address], documented in this encounter Visit Diagnoses Diagnosis Acute nonintractable headache, unspecified headache type- Primary documented in this encounter Administered Medications Inactive Administered Medications - up to 3 most recent administrations Medication Order MAR Action Action Date Dose Rate Site HYDROmorphone (PF) (DILAUDID) injection 1 mg 1 mg, intravenous, Once, On 03/16/24 at 1357, For 1 dose Given 03/16/2024 2:59 PM EST 1 mg levoFLOXacin (LEVAQUIN) tablet 500 mg 500 mg, oral, Once, On 03/16/24 at 1600, For 1 dose, Administer 2 hours before or after multivitamins, antacids, or other products containinig polyvalent cations (i.e., calcium, iron, magnesium, selenium, zinc). IF RECEIVING ENTERAL NUTRITION: Hold tube feeds 2 hours before and 2 hours after administration., Indication: Intra-abdominal Given 03/16/2024 4:25 PM EST 500 mg methylPREDNISolone sodium succ (SOLU-Medrol) injection 125 mg 125 mg, intravenous, Once, On 03/16/24 at 1357, For 1 dose, Reconstitute each 125 mg vial with 2 mL sterile water for injection to a concentration of 62.5 mg/mL. Given 03/16/2024 3:00 PM EST 125 mg ondansetron (PF) (ZOFRAN) injection 4 mg 4 mg, intravenous, Once, On 03/16/24 at 1357, For 1 dose Given 03/16/2024 3:00 PM EST 4 mg sodium chloride 0.9 % bolus 1,000 mL 1,000 mL, intravenous, at 1,000 mL/hr, Administer over 1 Hours, Once, On 03/16/24 at 1357, For 1 dose New Bag 03/16/2024 3:12 PM EST 1,000 mL 1000 mL/hr documented in this encounter Active and Recently Administered Medications Times are shown in EST. Scheduled Medication Order 03/14/2024 03/15/2024 03/16/2024 HYDROmorphone (PF) (DILAUDID) injection 1 mg (COMPLETED) 1 mg, intravenous, Once, On 03/16/24 at 1357, For 1 dose 1459 (Given - Provid er: Vicki Hinton RN) levoFLOXacin (LEVAQUIN) tablet 500 mg (COMPLETED) 500 mg, oral, Once, On 03/16/24 at 1600, For 1 dose, Administer 2 hours before or after multivitamins, antacids, or other products containinig polyvalent cations (i.e., calcium, iron, magnesium, selenium, zinc). IF RECEIVING ENTERAL NUTRITION: Hold tube feeds 2 hours before and 2 hours after administration., Indication: Intra-abdominal 1625 (Given - Provid er: Seda Garcia RN) methylPREDNISolone sodium succ (SOLU-Medrol) injection 125 mg (COMPLETED) 125 mg, intravenous, Once, On 03/16/24 at 1357, For 1 dose, Reconstitute each 125 mg vial with 2 mL sterile water for injection to a concentration of 62.5 mg/mL. 1500 (Given - Provid er: Vicki Hinton RN) ondansetron (PF) (ZOFRAN) injection 4 mg (COMPLETED) 4 mg, intravenous, Once, On 03/16/24 at 1357, For 1 dose 1500 (Given - Provid er: Vicki Hinton RN) sodium chloride 0.9 % bolus 1,000 mL (COMPLETED) 1,000 mL, intravenous, at 1,000 mL/hr, Administer over 1 Hours, Once, On 03/16/24 at 1357, For 1 dose 1512 (New Bag - Prov ider: Vicki Hinton RN)1830 (Stopped - Provider: Kamille Martinez RN) documented in this encounter Orders Medications Ordered That Reinier ht Not Have Been Administered Count Last Ordered Date First Ordered Date levoFLOXacin (LEVAQUIN) IVPB 500 mg 1 03/16 documented in this encounter Additional Health Concerns Infection Onset Date Last Indicated Resolved Time Respiratory Rule-Out 03/16/2024 03/16/2024 025 3:55 PM EST COVID-19 Rule-Out 03/16/2024 03/16/2024 03/16/2024 3:55 PM EST documented as of this encounter Care Teams Sales Development Consultant Relationship Specialty Start Date End Date Matilde Calabrese MD [address] [phone] PCP - General 11/22/23 documented as of this encounter
--- OUTSIDE RECORDS SUMMARY | 2024-03-18 05:52 | XMS_ITS | Encounter Summary ---
Author Organization [employer] Address [address] [facility] 7t [place] [address] Care Team Providers Care Principal Java Software Engineer Name Role Phone Matilde Calabrese MD Primary Care Provide r Kourtney Su PharmD Unavailable [phone] Cecily Pinedo RN Unavailable [phone] Reason for Visit * Reason Comments Care Coordination SDOH/appt reminders Encounter Details Date Type Department Care Team (Latest Contact Info) Description 03/06/2024 Patient Outreach [facility] [address] [place] [address] Matilde Calabrese MD 230 [place] [address] Care Coordination (SDOH/appt reminders) Social History Tobacco [...] an eviction letter due to owing about [id number] due to patient losing his job, patient stated he already received help though [employer] and does not qualify for more help. I asked patient he is not too sure where he will go yet but, if need be, will go to a fci but is worried about his pets. I let him know that there is a new fci opening in [place] that will accept pets. CHW will send all resources through mail and continue to help with housing situation. No further questions or concerns. CHW reinforced direct contact information or KENDRA for any additional questions or concerns and extended clinic hours on Mondays and Wednesdays, and Walk-In Urgent Care Located in [facility] of [facility]. Patient provided with after-hours line for [facility], , which offer nighttime triage service and option to [facility] extension [facility] Patient verbalizes understanding, and able to repeat back to customs entry writer. A follow up call will be placed within 10 days, patient agrees with plan. documented in this encounter Plan of Treatment Upcoming Encounters Date Type Department Care Team (Late st Contact Info) Description 03/26/2024 9:30 AM EST Medication Management [facility] [address] [place] [address] Kourtney Su PharmD [address] [place] [address] 05/06/2024 10:00 AM EDT Office Visit [facility] [address] [place] [address] Matilde Calabrese MD [address] [place] [address] 06/03/2024 11:30 AM EDT Office Visit [facility] MED & PEDS [address] [place], [place] [phone] Rodger Cole MD [address] [place], [place] [phone] documented as of this encounter Visit Diagnoses Not on filedocumented in this encounter Additional Health Concerns Assessment Noted Time PHQ-9 Depression Total Score: 18 024 9:55 AM EST documented as of this encounter Care Teams Principal Java Software Engineer Relationship Specialty Start Date End Date Matilde Calabrese MD [address] [place] [address] PCP - General Internal Medicine 11/23/23 Kourtney Su PharmD [address] [place] [address] Pharmacist Internal Medicine 12/05/23 Cecily Pinedo RN [address] [place] [address] Extension ClerkTrain Control Technician 01/08/24 [facility] 01/09/24 documented as of this encounter
--- OUTSIDE RECORDS SUMMARY | 2024-03-18 05:52 | XMS_ITS | Encounter Summary ---
Author Organization [employer] Address [address] [facility] [address] [facility] [address] 7[address] [place] [address] Care Team Providers Care Staff Writer Name Role Phone Matilde Calabrese MD Primary Care Provide r Kourtney Su PharmD Unavailable [phone] Cecily Pinedo RN Unavailable [phone] Reason for Visit * Reason Onset Date Comments Care Management 03/07/2024 C3CM- f/u call Encounter Details Date Type Department Care Team ([facility] st Contact Info) Description 03/07/2024 Telephone [facility] [address] [place] [address] Cecily Pinedo, RN [address] [place] [address] Care Management (C3CM- f/u call) Social History [...] the past 12 months, has t he [employer] gas, oil or water company threatened to [...] room visits.Patient confirms attending CDTM visits with [facility] pharmacy on 02/26/24 and 02/27/24. Per [...] which he has discussed with provider at [facility] during visit on 02/15/24.He reports use of [...] provided on Walk-In Urgent Care located in [facility] of [facility]. Patient provided with after-hours line for [facility], , which offer night time triage service and option to transfer to organizational consultant provider if needed. Patient verbalizes understanding, and able to repeat back to technical proposal writer. A follow up call will be placed within 10 days, patientagrees with plan. documented in this encounter Plan of Treatment Upcoming Encounters Date Type Department Care Team (Late st Contact Info) Description 03/26/2024 9:30 AM EST Medication Management [facility] [address] [place] [address] Kourtney Su, PharmD 230 [place] [address] 05/06/2024 10:00 AM EDT Office Visit [facility] [address] [place] [address] Matilde Calabrese MD 230 [place] [address] 06/03/2024 11:30 AM EDT Office Visit [facility] MED & PEDS [address] [place], [place] [phone] Rodger Cole MD 505 [place], [place] [phone] documented as of this encounter Visit Diagnoses Not on filedocumented in this encounter Additional Health Concerns Assessment Noted Time PHQ-9 Depression Total Score: 18 024 9:55 AM EST documented as of this encounter Care Teams Staff Writer Relationship Specialty Start Date End Date Matilde Calabrese MD 230 [place] [address] PCP - General Internal Medicine 11/23/23 Kourtney Su PharmD [address] [place] [address] Pharmacist Internal Medicine 12/05/23 Cecily Pinedo RN [address] [place] [phone] Assistant Brand ManagerEntry Engineer 01/08/24 [facility] 01/09/24 documented as of this encounter
--- OUTSIDE RECORDS SUMMARY | 2024-03-18 05:52 | XMS_ITS | Encounter Summary ---
Author Organization [employer] Address [address] [facility] 7t [place] [address] Care Team Providers Care Purchasing Manager/Sales Name Role Phone Matilde Calabrese MD Primary Care Provide r Kourtney Su PharmD Unavailable [phone] Cecily Pinedo RN Unavailable [phone] Reason for Visit * Reason Onset Date Comments Call Back Request 02/29/2024 Encounter Details Date Type Department Care Team ([facility] Contact Info) Description 02/29/2024 Telephone [facility] [address] [place], [place] [phone] Matilde Calabrese MD 230 [place] [address] Call Back Request Social History Tobacco Use [...] Description 03/26/2024 9:30 AM EST Medication Management [facility] [address] [place] [address] Kourtney Su, PharmD [address] [place] [address] 05/06/2024 10:00 AM EDT Office Visit [facility] [address] [place] [address] Matilde Calabrese MD 230 [place] [address] 06/03/2024 11:30 AM EDT Office Visit [facility] MED & PEDS [address] [place] [address] Rodger Cole MD 505 [place] [address] documented as of this encounter Visit Diagnoses Not on filedocumented in this encounter Additional Health Concerns Assessment Noted Time PHQ-9 Depression Total Score: 18 024 9:55 AM EST documented as of this encounter Care Teams Purchasing Manager/Sales Relationship Specialty Start Date End Date Matilde Calabrese MD 230 [place] [address] PCP - General Internal Medicine 11/23/23 Kourtney Su PharmD 230 [place] [address] Pharmacist Internal Medicine 12/05/23 Cecily Pinedo, ROSA [address] [place] [address] Management LecturerCoremaker Experimental 01/08/24 [facility] 01/09/24 documented as of this encounter
--- OUTSIDE RECORDS SUMMARY | 2024-03-18 05:52 | XMS_ITS | Encounter Summary ---
Author Organization [employer] Address [address] [facility] 7t [place] [address] Care Team Providers Care Pot Puller Name Role Phone Alexandre Sandoval MD Primary Care Prov ider Matilde Calabrese MD Primary Care Provide r Kourtney Su PharmD Unavailable Cecily Pinedo RN Unavailable [phone] Encounter Details Date Type Department Care Team ([facility] Contact Info) Description 07/18/2022 Orders Only [facility] MED & PEDS [address] [place] [address] Belem Pedraza LPN Social History Tobacco Use [...] Upcoming Encounters Date Type Department Care Team ([facility] Contact Info) Description 03/26/2024 9:30 AM EST Medication Management [facility] [address] [place], [place] [phone] Kourtney Su, PharmD 230 [place], [place] [phone] 05/06/2024 10:00 AM EDT Office Visit [facility] [address] [place] [address] Matilde Calabrese MD 230 [place] [address] 06/03/2024 11:30 AM EDT Office Visit [facility] MED [facility] PEDS [address] [place] [address] Rodger Cole MD 505 [place] [address] documented as of this encounter Visit Diagnoses Not on filedocumented in this encounter Care Teams Pot Puller Relationship Specialty Start Date End Date Alexandre Sandoval MD 505 [place] [address] PCP - General Internal Medicine 07/20/19 11/22/23 Matilde Calabrese MD [address] [place] [address] PCP - General Internal Medicine 11/23/23 Kourtney Su, EmmaD [address] [place] [address] Pharmacist Internal Medicine 12/05/23 Cecily Pinedo, ROSA [address] [place] [address] Marine Service ManagerSwimming Pool Servicer 01/08/24 [facility] 01/09/24 documented as of this encounter
--- OUTSIDE RECORDS SUMMARY | 2024-03-18 05:52 | XMS_ITS | Encounter Summary ---
Author Organization [employer] Address [address] [facility] [address] 7t [place] [address] Care Team Providers Care Instructor Military Science Name Role Phone Matilde Calabrese MD Primary Care Provide r Kourtney Su PharmD Unavailable [phone] Cecily Pinedo RN Unavailable [phone] Encounter Details Date Type Department Care Team (Late st Contact Info) Description 02/28/2024 Telephone [facility] [address] [place], [place] [phone] Matilde Calabrese MD 230 [place], [place] [phone] Social History Tobacco Use Types Packs/Day Years [...] Description 03/26/2024 9:30 AM EST Medication Management [facility] [address] [place] [address] Kourtney Su, PharmD 230 [place] [address] 05/06/2024 10:00 AM EDT Office Visit [facility] [address] [place] [address] Matilde Calabrese MD 230 [place] [address] 06/03/2024 11:30 AM EDT Office Visit [facility] CH[facility] MED & PEDS [address] [place] [address] Rodger Cole MD 505 [place] [address] documented as of this encounter Visit Diagnoses Not on filedocumented in this encounter Additional Health Concerns Assessment Noted Time PHQ-9 Depression Total Score: 18 024 9:55 AM EST documented as of this encounter Care Teams Instructor Military Science Relationship Specialty Start Date End Date Matilde Calabrese MD 230 [place] [address] PCP - General Internal Medicine 11/23/23 Kourtney Su PharmD 230 [place] [address] Pharmacist Internal Medicine 12/05/23 Cecily Pinedo RN [address] [place] [address] Blood CoordinatorTie Fastener 01/08/24 [facility] 01/09/24 documented as of this encounter
--- OUTSIDE RECORDS SUMMARY | 2024-03-18 05:52 | XMS_ITS | Encounter Summary ---
Author Organization [employer] Address [address] 7[address] [place] [address] Care Team Providers Care Elementary Principal Name Role Phone Matilde Calabrese MD Primary Care Provide r Kourtney Su PharmD Unavailable [phone] Cecily Pinedo RN Unavailable [phone] Encounter Details Date Type Department Care Team (Late st Contact Info) Description 02/26/2024 10:30 AM EST Telemedicine [facility] [address] [place] [address] Kourtney Su, PharmD [address] [place] [address] Type 2 diabetes mellitus with hyperglycemia, with long-term current use of insulin ([facility]) (Primary Dx) Social History Tobacco Use Types [...] Type: CDTM Pharmacist: Kourtney Su PharmD Raji Anderson is a 38 y.o. year old patient here for follow up visit completed via televisit [facility] services through [employer] [facility] changes to be faxed there to [phone] Attn Muriel Subjective History: General / Intake (updated 02/18/24) Allergies: is allergic to ibuprofen and iodinated contrast media. Read/Write: Yes, in Amharic Recent Hospitalizations: Yes 11/11/23-11/13/23 and [facility] 11/02/2023 -11/04/2023 for cellulitis, ED 02/06/24 for [...] of 220mg/dL Was recently seen 02/19/24 at [facility] and treated for hyperglycemia Reports previously [...] polydypsia, blurred vision Patient currently SMBG using [employer] Cherelle 2 using phone jacinto for reader. [...] administration and no contraindications exist. Preferred Pharmacy: [facility] (Planned [facility] start, will follow [...] monitoring/follow up. Patient to follow up in [facility] 02/27/24 Education: Healthy diet and lifestyle. Discussed [...] BP <140/90mmHg Plan: Requested patient present to [facility] clinic 02/27/24 for BP check; will assess if potential increase in dose of carvedilol is warranted (hold in dose increase of lisinopril due to noted hyponatremia) Patient to follow up in [facility] 02/27/24 Education: Reviewed benefits of DASH diet [...] 03/26/2024 9:30 AM EST Medication Management [facility] [address] [place] [address] Kourtney Su PharmD [address] [place] [address] 05/06/2024 10:00 AM EDT Office Visit [facility] [address] [place], [place] [phone] Matilde Calabrese MD [address] [place], [place] 06/03/2024 11:30 AM EDT Office Visit [facility] MED [facility]S [address] [place], [place] [phone] Rodger Cole MD 505 [place], [place] Scheduled Orders Name Type Priority Associated Diagnoses Orde r Schedule Hepatic Function Panel Lab Routine Type 2 diabetes mellitus with hyperglycemia, with long-term current use of insulin ([facility]) Expected: 03/28/2024 (Approximate), Expires: 02/25/2025 Lipid Panel, Standard Lab Routine Type 2 diabetes mellitus with hyperglycemia, with long-term current use of insulin ([facility]) Expected: 03/28/2024 (Approximate), Expires: 02/25/2025 documented as of this encounter Visit Diagnoses Diagnosis Type 2 diabetes mellitus with hyperglycemia, with long-term current use of insulin ([facility])- Primary documented in this encounter Additional Health Concerns Assessment Noted Time PHQ-9 Depression Total Score: 18 024 9:55 AM EST documented as of this encounter Care Teams Elementary Principal Relationship Specialty Start Date End Date Matilde Calabrese MD [address] [place], [place] PCP - General Internal Medicine 11/23/23 Kourtney Su, EmmaD [address] [place] [address] Pharmacist Internal Medicine 12/05/23 Cecily Pinedo RN [address] [place] [address] Track MechanicBoxing And Pressing Supervisor 01/08/24 [facility] 01/09/24 documented as of this encounter
--- OUTSIDE RECORDS SUMMARY | 2024-03-18 05:52 | XMS_ITS | Encounter Summary ---
Author Organization [employer] Address [address] [facility] [facility] [address] 7[address] [place] [address] Care Team Providers Care Hedis Registered Nurse Rn Name Role Phone Matilde Calabrese MD Primary Care Provide r Kourtney Su PharmD Unavailable [phone] Cecily Pinedo RN Unavailable [phone] Encounter Details Date Type Department Care Team (Late st Contact Info) Description 02/26/2024 Telephone [facility] [address] [place], [place] [phone] Chante Davis RN [address] [place], [place] [phone] Social History Tobacco Use Types Packs/Day Years [...] call regarding prior message. Contact pt at [phone] * Telephone Encounter - Chante Davis RN [...] Description 03/26/2024 9:30 AM EST Medication Management [facility] [address] [place] [address]228 Kourtney Su PharmD [address] [place] [address] 05/06/2024 10:00 AM EDT Office Visit [facility] [address] [place] [phone] Matilde Calabrese MD [address] [place] [address] 368[address] 06/03/2024 11:30 AM EDT Office Visit [facility] [address] [place], [place] [phone] Rodger Cole MD 505 [place], [place] [phone] documented as of this encounter Visit Diagnoses Not on filedocumented in this encounter Additional Health Concerns Assessment Noted Time PHQ-9 Depression Total Score: 18 024 9:55 AM EST documented as of this encounter Care Teams Hedis Registered Nurse Rn Relationship Specialty Start Date End Date Matilde Calabrese MD [address] [place] [address] 30780 PCP - General Internal Medicine 11/23/23 Kourtney Su PharmD [address] [place] [address] 39942 Pharmacist Internal Medicine 12/05/23 Cecily Pinedo RN [address] [place] [address] [phone] Candle WrapperBone Cooking Operator 01/08/24 [facility] 01/09/24 documented as of this encounter
--- OUTSIDE RECORDS SUMMARY | 2024-03-18 05:52 | XMS_ITS | Encounter Summary ---
Author Organization [employer] Address 75 [facility] 7t [place] [address] Care Team Providers Care Newsperson Name Role Phone Matilde Calabrese MD Primary Care Provide r Kourtney Su PharmD Unavailable [phone] Cecily Pinedo RN Unavailable [phone] Encounter Details Date Type Department Care Team (Late st Contact Info) Description 11/23/2023 Orders Only [facility] MED [facility] PEDS [address] [place], [place] [phone] Alexandre Sandoval MD 505 [place] [address] Type 2 diabetes mellitus with hyperglycemia, without long-term current use of insulin ([facility]) Social History Tobacco Use Types Packs/Day Years [...] Description 03/26/2024 9:30 AM EST Medication Management [facility] [address] [place] [address] Kourtney Su PharmD [address] [place] [address] 379[address] 05/06/2024 10:00 AM EDT Office Visit [facility] [address] [place] [address] 9[address]29 Matilde Calabrese MD [address] [place] [address] 95687 06/03/2024 11:30 AM EDT Office Visit [facility] 505 [place] [address] Rodger Cole MD 505 [place] [address] documented as of this encounter Visit Diagnoses Diagnosis Type 2 diabetes mellitus with hyperglycemia, without long-term current use of insulin ([facility]) documented in this encounter Care Teams Newsperson Relationship Specialty Start Date End Date Matilde Calabrese MD [address] [place] [address] 38909 PCP - General Internal Medicine 11/23/23 Kourtney Su PharmD [address] [place] [address] 18144 Pharmacist Internal Medicine 12/05/23 Cecily Pinedo RN [address] [place] [address] LISA Bhatti 6[address] Trade Mark ExaminerNozzle Cement Sprayer Helper 01/08/24 [facility] 01/09/24 documented as of this encounter
--- OUTSIDE RECORDS SUMMARY | 2024-03-18 05:52 | XMS_ITS | Encounter Summary ---
Author Organization [employer] Address [address] [facility] [address] 7t [place] [address] Care Team Providers Care Carbider Name Role Phone Matilde Calabrese MD Primary Care Provide r Kourtney Su PharmD Unavailable [phone] Cecily Pinedo RN Unavailable Encounter Details Date [...] Upcoming Encounters Date Type Department Care Team ([facility] st Contact Info) Description 03/26/2024 9:30 AM EST Medication Management [facility] MED[facility]INE [address] [place] [address] [phone] Kourtney Su, PharmD [address] [place] [address] 25182 05/06/2024 10:00 AM EDT Office Visit [facility] [address] [place] [address] 33096 Matilde Calabrese MD [address] [place] [address] 06/03/2024 11:30 AM EDT Office Visit [facility] MED & PEDS [address] [place] [address] Rodger Cloe MD 505 [place] [address] documented as of this encounter Visit Diagnoses Not on filedocumented in this encounter Additional Health Concerns Assessment Noted Time PHQ-9 Depression Total Score: 18 024 9:55 AM EST documented as of this encounter Care Teams Carbider Relationship Specialty Start Date End Date Matilde Calabrese MD 230 [place] [address] PCP - General Internal Medicine 11/23/23 Kourtney Su PharmD 230 [place] [address] Pharmacist Internal Medicine 12/05/23 Cecily Pinedo RN [address] [place] [address] 62402 Assistant Kitchen ManagerHospital Plan Administrator 01/08/24 [facility] 01/09/24 documented as of this encounter
--- OUTSIDE RECORDS SUMMARY | 2024-03-18 05:53 | XMS_ITS | Encounter Summary ---
Author Organization [employer] Address [address] [facility] [address] 7[address] [place] [address] Care Team Providers Care Retort Feeder Ground Bone Name Role Phone Matilde Calabrese MD Primary Care Provide r Kourtney Su PharmD Unavailable [phone] Cecily Pinedo RN Unavailable [phone] Encounter Details Date Type Department Care [...] Upcoming Encounters Date Type Department Care Team ([facility] st Contact Info) Description 03/26/2024 9:30 AM EST Medication Management [facility] MEDICINE [address] [place] [address]76 Kourtney Su, PharmD [address] [place] [address] 31890 05/06/2024 10:00 AM EDT Office Visit [facility] MEDICINE [address] [place] [address] 56069 Matilde Calabrese MD [address] [place] [address] 61389 06/03/2024 11:30 AM EDT Office Visit [facility] CH[facility] MED & PEDS 505 [place] [address] Rodger Cole MD 505 [place] [address] documented as of this encounter Visit Diagnoses Not on filedocumented in this encounter Additional Health Concerns Assessment Noted Time PHQ-9 Depression Total Score: 18 024 9:55 AM EST documented as of this encounter Care Teams Retort Feeder Ground Bone Relationship Specialty Start Date End Date Matilde Calabrese MD 230 [place] [address] PCP - General Internal Medicine 11/23/23 Kourtney Su PharmD 230 [place] [address] Pharmacist Internal Medicine 12/05/23 Cecily Pinedo RN [address] [place] [address] 30477 Director MoneyValue Advisor 01/08/24 [facility] 01/09/24 documented as of this encounter
--- OUTSIDE RECORDS SUMMARY | 2024-03-18 05:53 | XMS_ITS | Encounter Summary ---
Author Organization [employer] Address 75 [facility] 7t [place] [address] Care Team Providers Care Television Reporter Name Role Phone Matilde Calabrese MD Primary Care Provide r Kourtney Su PharmD Unavailable [phone] Cecily Pinedo RN Unavailable [phone] Encounter Details Date Type Department Care Team (Late st Contact Info) Description 01/31/2024 Orders Only [facility] [address] [place] [address] ProviderAri MD Social History Tobacco Use Types [...] Description 03/26/2024 9:30 AM EST Medication Management [facility] MEDICINE [address] [place] [address] 28046 Kourtney Su, PharmD [address] [place] [address] 20589 05/06/2024 10:00 AM EDT Office Visit [facility] MEDICINE [address] [place] [address] 16041 Matilde Calabrese MD [address] [place] [phone] 06/03/2024 11:30 AM EDT Office Visit [facility] MED & PEDS [address] [place], [place] [phone] Rodger Cole MD 505 [place] [address] documented as of this encounter Procedures Procedure [...] documented as of this encounter Care Teams Television Reporter Relationship Specialty Start Date End Date Matilde Calabrese MD 230 [place] [address] PCP - General Internal Medicine 11/23/23 Kourtney Su PharmD 230 [place] [address] Pharmacist Internal Medicine 12/05/23 Cecily Pinedo RN [address] [place] [place] [address] 80126 Non Linear EditorMachinery Mover 01/08/24 [facility] 01/09/24 documented as of this encounter
--- OUTSIDE RECORDS SUMMARY | 2024-03-18 05:53 | XMS_ITS | Encounter Summary ---
Author Organization [employer] Address [address] [facility] 7t [place] [address] Care Team Providers Care Senior Quality Assurance Engineer Name Role Phone Matilde Calabrese MD Primary Care Provide r Kourtney Su PharmD Unavailable [phone] Cecily Pinedo RN Unavailable [phone] Reason for Referral * Consultation (STAT) - Closed Specialty Diagnoses / Procedures Referred By Contac t Referred To Contact Optometry Diagnoses Ocular pain, right eye Christian Muñoz MD [address] [place], [place] Phone: tel: fax: [facility] OPTOMETRY [address] [place] [address] Phone: tel: fax: Referral ID Status Reason Start Date Expiration Date V isits Requested Visits Authorized [id number] Closed Consult and Treat 03/11/2024 03/11/2025 1 1 * Imaging (STAT) - Authorized Specialty Diagnoses / Procedures Referred By Contac t Referred To Contact Radiology Diagnoses Ocular pain, right eye Acute intractable headache, unspecified headache type Procedures CT Orbits/Sella w/o Contrast Christian Muñoz MD [address] [place] [address] Phone: tel: fax: [facility] [address] [place], [place] Phone: tel: fax: Referral ID Status Reason Start Date Expiration Date V isits Requested Visits Authorized [id number] Authorized 03/11/2024 03/11/2025 1 1 * Imaging (Routine) - Authorized Specialty Diagnoses / Procedures Referred By Contac t Referred To Contact Radiology Diagnoses Ocular pain, right eye Acute intractable headache, unspecified headache type Procedures CT Head w/o Contrast Christian Muñoz MD [address] [place] [address] Phone: tel: fax: [address] Phone: tel: fax: Referral ID Status Reason Start Date Expiration Date V isits Requested Visits Authorized [id number] Authorized 03/11/2024 03/11/2025 1 1 Reason for Visit * Reason Comments [facility] Encounter Details Date Type Department Care Team (Late st Contact Info) Description 03/11/2024 3:00 PM EST Office Visit [facility] MEDICINE [address] [place] [address] Christian Mñuoz MD [address] [place] [address] Ocular pain, right eye; Acute intractable headache, [...] Fuchs MD - 03/11/2024 3:00 PM EST JULIO Anderson is a 38 y.o. male who presents for Follow-up ([facility]). Mr Anderson is a patient of Dr. Youngblood 38-year-old male with insulin-dependent diabetes, hypertension who is here for an ER follow up He presented to [facility] the ER 03/09/2024 reporting right-sided headache and [...] right sided headache as well. Seen at [facility] ER, intraocular pressure per ER report on right eye was normal. On today's exam pt has photophobia and painful extraocular movements on the right. No redness, mildtenderness to palpation right eye. Etiology ? Ocular migraine vs other etiologies Plan: Stat Orbital and head CT. CBC, ESR. Pt to be seen by our Batch Attendant Dr. Gresham tomorrow at 3:45 PM Follow up with PCP in [address] Head w/o Contrast CT Orbits/Sella w/o Contrast Referral to [facility] Eye Care CBC auto differential Sed Rate [...] right sided headache as well. Seen at [facility] ER, intraocular pressure per ER report on right eye was normal. On today's exam pt has photophobia and painful extraocular movements on the right. No redness, mildtenderness to palpation right eye. Etiology ? Ocular migraine vs other etiologies Plan: Stat Orbital and head CT. CBC, ESR. Pt to be seen by our Batch Attendant Dr. Gresham tomorrow at 3:45 PM Follow up with PCP in 1 week documented in this encounter Plan of Treatment Upcoming Encounters Date Type Department Care Team (Late st Contact Info) Description 03/26/2024 9:30 AM EST Medication Management [facility] MEDICINE [address] [place] [phone] Kourtney Su PharmD [address] [place] [address] 7[address] 05/06/2024 10:00 AM EDT Office Visit [facility] MEDICINE [address] [place] [address] Matilde Calabrese MD [address] [place] [address] 06/03/2024 11:30 AM EDT Office Visit [facility] CHC MED & PEDS [address] [place] [address] Rodger Cole MD 505 [place] [address] Scheduled Orders Name Type Priority Associated Diagnoses Orde r Schedule CT Orbits/Sella w/o Contrast Imaging STAT Ocular pain, right eye Acute intractable headache, unspecified headache type Ordered: 03/11/2024 Scheduled Referrals Name Type Priority Associated Diagnoses Orde r Schedule Referral to [facility] Eye Care Outpatient Referral STAT Ocular pain, right eye Expected: 03/11/2024 (Approximate), Expires: 03/11/2025 documented as of this encounter Procedures Procedure Name Priority Date/Time Associated Diagnosis Comments CT HEAD WO CONTRAST Routine 03/14/2024 1 0:02 AM EST Ocular pain, right eye Acute intractable headache, unspecified headache type CBC WITH AUTO DIFFERENTIAL Routine 03/12/2024 2:58 PM EST Ocular pain, right eye SED RATE BY MODIFIED WESTERGREN Routine 03/12/2024 2:58 PM EST Ocular pain, right eye BASIC METABOLIC PANEL Routine 03/12/2024 2:58 PM EST Ocular pain, right eye Acute intractable headache, unspecified headache type documented in this encounter Results * CT Head w/o Contrast (03/14/2024 10:02 AM EST) Anatomical Region Laterality Modality Head, Neck Computed Tomogra phy 03/14/2024 10:0 2 AM EST Narrative 03/14/2024 10:04 AM EST ? [facility] ?[address] ?[place] [address] ? CT Scan Report ? Signed ? Patient: Anderson,Raji ?MR#: [id number] ? : 1985 ?Acct:[id number] ? Age/Sex: 38 / M ?ADM Date: 03/14/24 ? Loc: HO.CT ? Attending Dr: Christian Shelton MD ? Ordering Physician: Christian Shelton MD ?? Date of Service: 03/14/24 ?? Procedure(s): CT head/brain wo IV con ?? Accession Number(s): [id number] ? cc: Matilde Calabrese MD; Christian Shelton MD ? Report Number: ?? [id number]: Total DLP = 1059.00 mGy-cm ? CLINICAL [...] DD/ 1002 ? TD/TT: 03/14/24 1002 ? Patent Chemist: ? Procedure Note Rich, Image - 03/14/[address] [address] [address] Scan Report Signed Patient: Cedrick Anderson#: [id number] : 1985Acct:[id number] Age/Sex: 38 / MADM Date: 03/14/24 Loc: HO.CT Attending Dr: Christian Shelton MD Ordering Physician: Christian Shelton MD Date of Service: 03/14/24 Procedure(s): CT head/brain wo IV con Accession Number(s): [id number] cc: Matilde Calabrese MD; Christian Shelton MD Report Number: [id number]: Total DLP = 1059.00 mGy-cm CLINICAL HISTORY: [...] 03/14/24 1004 DD/ 1002 TD/TT: 03/14/24 1002 Patent Chemist: us Christian Fuchs MD IMG CT PROCEDURES Fin al Result * (ABNORMAL) Basic Metabolic Panel (03/12/2024 2:58 PM EST) Sodium 135 135 - 145 mmol/L [facility] Potassium 4.3 3.3 - 5.1 mmol/L [facility] Chloride 105 96 - 108 mmol/L [facility] Carbon Dioxide 25 22 - 29 mmol/L [facility] Anion Gap 9(L) 12 - 20 [facility] Urea Nitrogen (BUN) 13 9 - 16 mg/dL [facility] Creatinine, Serum 0.93 0.5 - 1.4 mg/dL [facility] Estimated Glomerular Filt Rate >60 [facility] Comment:Chronic Kidney Disea se: Estimated GFR < 60 mL/min/1.58y1Etukpd Kidney Disease: Estimated GFR < 15 mL/min/1.73m2 Glucose 227(H) 60 - 115 mg/dL [facility] Calcium 9.6 8.4 - 10.2 mg/dL [facility] Blood Venous blood specimen / Unknown 03/12/2024 2:58 PM EST 03/12/2024 4:20 PM EST Christian Fuchs MD LAB BLOOD ORDERABLES Final Result Performing Organization Address [facility]/ZIP Co de Phone Number [facility] [address] [place] [phone] * (ABNORMAL) Sed Rate by Modified Reganren (03/12/2024 2:58 PM EST) Erythrocyte Sedimentation Rate 34(H) 0 - 15 MM/HR [facility] Comment:Patients with polycy themia and many hemoglobin abnormalitiesmay have depressed sed rates whereas patients with anemiamay have elevated sed rates. Blood Venous blood specimen / Unknown 03/12/2024 2:58 PM EST 03/12/2024 4:20 PM EST Christian Fuchs MD LAB BLOOD ORDERABLES Final Result Performing Organization Address [facility]/ZIP Co de Phone Number [facility] [address] [place] [phone] * (ABNORMAL) CBC auto differential (03/12/2024 2:58 PM EST) White Blood Count 9.5 4.8 - 10.8 X10*3/uL [facility] Red Blood Count 4.66 4.60 - 5.80 X10*6/uL [facility] Hemoglobin 13.9(L) 14.0 - 18.0 g/dl [facility] Hematocrit 40.0(L) 42.0 - 52.0 % [facility] Mean Corpuscular Volume 85.8 80.0 - 98.0 fL [facility] Mean Corpuscular Hemoglobin 29.8 27.0 - 33.0 pg [facility] Mean Corpuscular HGB Conc 34.8 31.0 - 36.0 g/dl [facility] Red Cell Distribution Width 12.3 11.0 - 16.0 % [facility] Platelet Count 326 160 - 400 X10*3/uL [facility] Mean Platelet Volume 10.4 9.4 - 12.4 fL [facility] Neutrophils Percent Auto 58.0 45 - 73 % [facility] Imm Gran Pct Auto 0.3 0.0 - 0.4 % [facility] Lymphocytes Percent Auto 30.5 20 - 40 % [facility] Monocytes Percent Auto 6.6 2 - 11 % [facility] Eosinophils Percent Auto 3.4 0 - 4 % [facility] Basophils Percent Auto 1.2 0 - 2 % [facility] NRBC Pct Auto 0.0 0.0 - 0.2 /100WBC [facility] Neutrophils Absolute Auto 5.5 2.0 - 8.3 x10*3/uL [facility] Imm Gran Abs Auto 0.03 0.00 - 0.03 X10*3/uL [facility] Lymphocytes Absolute Auto 2.9 1.2 - 4.9 X10*3/uL [facility] Monocytes Absolute Auto 0.6 0.1 - 1.2 X10*3/uL [facility] Eosinophils Absolute Auto 0.3 0.0 - 0.4 X10*3/uL [facility] Basophils Absolute Auto 0.1 0.0 - 0.2 X10*3/uL [facility] NRBC Abs Auto 0.000 0.0 - 0.012 X10*3/uL [facility] Blood Venous blood specimen / Unknown 03/12/2024 2:58 PM EST 03/12/2024 4:20 PM EST us Christian Fuchs MD LAB BLOOD ORDERABLES Final Result [facility] [address] [place] [address] [phone] documented in this encounter Visit Diagnoses Diagnosis Ocular pain, right eye Acute intractable headache, unspecified headache type documented in this encounter Additional Health Concerns Assessment Noted Time PHQ-9 Depression Total Score: 18 024 9:55 AM EST documented as of this encounter Care Teams Senior Quality Assurance Engineer Relationship Specialty Start Date End Date Matilde Calabrese MD [address] [place] [address] PCP - General Internal Medicine 11/23/23 Kourtney Su PharmD [address] [place] [address] Pharmacist Internal Medicine 12/05/23 Cecily Pinedo RN [address] [place] [phone] Rn DiabetesMachine Stone Polisher 01/08/24 [facility] 01/09/24 documented as of this encounter
== END 2024-03-18 05:50 | disposition home or self-care (01) ==
LOC: HO.NEURO 05:49
PROVIDERS: PCP Internal Medicine; Visit Provider Internal Medicine
DX: M25.531 Pain in right wrist (principal); M25.532 Pain in left wrist
CPT/HCPCS: 95886; 95913

== ENCOUNTER 2024-03-28 11:58 | Outpatient (AMB) | payer MEDICAID, SELFPAY ==
--- NOTE | 2024-03-28 12:25 | HO.NEPHOV_ITS ---
Vital Signs 03/28/24 12:29 Height 5 ft 8 in Weight 279 lb 2 oz BMI 42.4 BP 140/90 H Blood Pressure Location Lt brachial Position Sitting Pulse 84 Pulse Source Pulse Oximeter Pulse Oximetry (%) 96 Oxygen Delivery Method Room Air Intake Visit Reasons: [facility] called to make appt-Conf Dog Control Officer Required: No Accompanied by: Self / Same As Patient Allergies ibuprofen Allergy (Verified 03/28/24 12:29) Unknown Iodinated Contrast Media Allergy (Verified 03/28/24 12:29) Unknown HPI Comments Details: I had the privilege of seeing Mr. Anderson in follow up of recent acute kidney injury. He is 38 years of age and has longstanding history of uncontrolled diabetes mellitus. He has DM and HTN since he was in . He has no history of drug use. He denies history of retinopathy or LVH but has proteinuria and neuropathy. . He used to take nonsteroidal anti-inflammatories which has been recently discontinued. He does not have any nausea, vomiting, diarrhea, shortness of breath, proximal nocturnal dyspnea, orthopnea, pedal edema, hematuria, renal stones, coronary artery disease, congestive heart failure, carotid stenosis, peripheral arterial disease, renal artery stenosis, new bone or back pain. He never had any history of high serum calcium. He denies any history of hepatitis or HIV. He does not get any recurrent sore throat, epistaxis, hemoptysis, photosensitivity, skin rashes. He has no sensorineural hearing deficits. He has no acral tingling or paresthesia. He is concerned about his recent high serum creatinine. He has GAIL and does not have CPAP now. He had 2 uncles with ESRD. [facility] Medical History (Updated 12/20/23 @ 11:27 by Adrian Rodriguez PA-C) Acquired hypothyroidism JASBIR (acute kidney injury) Paraspinal muscle spasm Axillary hidradenitis suppurativa Hypertension Flat foot Gout Mood disorder Morbid obesity Obstructive sleep apnea syndrome Type 2 diabetes mellitus Surgical History History of circumcision History of tonsillectomy and adenoidectomy History of removal of cyst Family History Father Diabetes Mother Thyroid disease Maternal Grandfather Cancer Social History Patient Tobacco Use Status: Former Tobacco user Current occupational status: employed 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, 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 Review of Systems Const All systems reviewed & are unremarkable except as noted in HPI and below Physical Exam Vital Signs: Last Vital Signs Pulse 84 03/28/24 12:29 BP 140/90 H 03/28/24 12:29 Pulse Ox 96 03/28/24 12:29 Oxygen Delivery Method Room Air 03/28/24 12:29 BMI result Body Mass Index 42.4 Const General: comfortable and no acute distress Orientation/consciousness: patient oriented x3 HEENT Head: Yes normocephalic Mouth: Normal oral and palatal mucosa present Eyes EOM: EOMs intact bilaterally Neck Neck: Yes supple Resp Auscultation: clear to auscultation bilaterally Cardio Jugular venous distension: no JVD Rate: regular rate GI Palpation (GI): Soft to palpation Auscultation: normal bowel sounds General: Yes no CVA tenderness Back/Spine/Pelvis Back: no CVA tenderness Skin General skin exam: no rashes or lesions noted Neuro General: patient oriented x3 and moves all extremities Extrem General: Yes no pedal edema Results Reviewed Nephrology Results: Hgb 13.9 g/dl (14.0-18.0) L 03/12/24 WBC 9.5 X10*3/uL (4.8-10.8) 03/12/24 Plt Count 326 X10*3/uL (160-400) 03/12/24 Sodium 135 mmol/L (135-145) 03/12/24 Potassium 4.3 mmol/L (3.3-5.1) 03/12/24 Chloride 105 mmol/L (96-108) 03/12/24 Carbon Dioxide 25 mmol/L (22-29) 03/12/24 BUN 13 mg/dL (9-16) 03/12/24 Creatinine 0.93 mg/dL (0.5-1.4) 03/12/24 Calcium 9.6 mg/dL (8.4-10.2) 03/12/24 Urine Creatinine 209.68 mg/dL 02/18/24 Assessment & Plan Assessment & Plan (1) Hypertension: Code(s): I10 - Essential (primary) hypertension Category: Medical Qualifiers: Hypertension type: primary hypertension Qualified Code(s): I10 - Essential (primary) hypertension Plan Mr. Anderson has longstanding uncontrolled diabetes. His renal function is back to baseline. His urine output is good . His SIERRA inhibitor is on hold. He is avoiding nonsteroidal anti-inflammatories. He needs to maintain hydration.He will be a good candidate for SGLT2 i. I did not make any other medication changes today. All these possibilities have been discussed in detail and I answered all his questions. Further management has been involving data. Orders: Orders Electrolytes 3 Months I10 - Essential (primary) hypertension Protein Creatinine Ratio, Ur 3 Months I10 - Essential (primary) hypertension Creatinine 3 Months I10 - Essential (primary) hypertension Blood Urea Nitrogen 3 Months I10 - Essential (primary) hypertension Coding Level of Care Code Est Pt Level 4 (40984) Diagnoses Primary hypertension I10 Hypertension type: primary hypertension
[2024-03-28 12:29] VITALS: BP 140/90; PULSE 84; O2SAT 96; BMI 42.4
--- OUTSIDE RECORDS SUMMARY | 2024-03-28 12:59 | XMS_ITS | Encounter Summary ---
Author Organization [employer] Address [address] [facility] 7t [place] [address] Care Team Providers Care Service Line Bus Cleaner Name Role Phone Matilde Calabrese MD Primary Care Provide r Kourtney Su PharmD Unavailable [phone] Cecily Pinedo RN Unavailable [phone] Encounter Details Date Type Department Care Team (Latest Contact Info) Description 03/12/2024 3:45 PM EST Office Visit [facility] OPTOMETRY [address] [place], [place] [phone] Anisha Gresham, OD [address] [place] [address] Ocular pain, right eye (Primary Dx); Severe [...] that he was experiencing on the right mormonism. Patient also notes right eye (OD) has been gunky and mildly swollen when waking up since pain started. Patient reports blurry vision right eye (OD), denies diplopia. Patient denies any similar previous episodes. Pt denies trauma. Patient was seen in [facility] UC yesterday - CBC, ESR and [...] for HS. 60 g 2 Continuous Glucose Fryer Line Helper (FreeStyle Cherelle 2 [place]) device Scan sensor every 8 hours 1 [...] Tests Color Right Left Ishihara 14 14 sustainable landscape architect desat: Patient reports darker burgundy color right [...] Exam Right Left Vitreous Clear Clear Disc [place] and healthy, distinct margins, (-) BV obscruation, (-) pallor, (-) NVD [place] and healthy, distinct margins, (-) BV obscruation, [...] 360 Refraction Manifest Refraction (Auto) Sphere Cylinder [place] Right +1.00 -0.25 104 Left +0.75 Sphere [...] with PCP - Patient was referred to [facility] by PCP for routine care - appt scheduled for 05/20/24. Provided patient the option to continue care at [facility] or be seen by external OD. [...] Care Team (Late st Contact Info) Description 04/09/2024 10:30 AM EST Medication Management [facility] MEDICINE [address] [place] [address] Kourtney Su, PharmD [address] [place] [address] 05/06/2024 10:00 AM EDT Office Visit [facility] MEDICINE [address] [place] [address] Matilde Calabrese MD [address] [place] [address] 06/03/2024 11:30 AM EDT Office Visit [facility] CHC MED & PEDS [address] [place] [address] Rodger Cole MD [address] [place] [address] documented as of this encounter Procedures Procedure Name Priority Date/Time Associated Diagnosis Comments FUNDUS PHOTOS - OU - BOTH EYES Routine 03/12/2024 3:45 PM EST 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 ([facility]) documented in this encounter Results * [...] Plan: RTC 3 months for f/u Result [facility] Anisha Marga OD OPHTH PHOTOGRAPHY Final Result documented in this encounter Visit Diagnoses Diagnosis Ocular pain, right eye- Primary 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 ([facility]) Intermittent exotropia, alternating documented in this encounter Additional Health Concerns Assessment Noted Time PHQ-9 Depression Total Score: 18 024 9:55 AM EST documented as of this encounter Care Teams Service Line Bus Cleaner Relationship Specialty Start Date End Date Matilde Calabrese MD [address] [place] [address] PCP - General Internal Medicine 11/23/23 Kourtney Su PharmD [address] [place] [address] Pharmacist Internal Medicine 12/05/23 Cecily Pinedo, ROSA [address] [place] [address] Pourer OffAutomotive Exhaust Emissions Technician 01/08/24 [facility] 01/09/24 documented as of this encounter
--- OUTSIDE RECORDS SUMMARY | 2024-03-28 12:59 | XMS_ITS | Encounter Summary ---
Author Organization [employer] Address [address] [facility] 7t [place] [address] Care Team Providers Care Operations Dispatcher Name Role Phone Matilde Calabrese MD Primary Care Provide r Kourtney Su PharmD Unavailable [phone] Cecily Pinedo RN Unavailable Encounter Details Date Type Department Care Team (Late st Contact Info) Description 02/07/2024 Orders Only [facility] [address] [place] [address] ProviderAri MD Social History Tobacco Use Types [...] Description 04/09/2024 10:30 AM EST Medication Management [facility] MEDICINE [address] [place] [address] Kourtney Su, PharmD [address] [place] [address] 05/06/2024 10:00 AM EDT Office Visit [facility] MEDICINE [address] [place] [address] Matilde Calabrese MD [address] [place] [address] 06/03/2024 11:30 AM EDT Office Visit [facility] CHC MED & PEDS [address] [place], [place] [phone] Rodger Cole MD [address] [place] [address] documented as of this encounter Procedures Procedure [...] documented as of this encounter Care Teams Operations Dispatcher Relationship Specialty Start Date End Date Matilde Calabrese MD [address] [place] [address] PCP - General Internal Medicine 11/23/23 Kourtney Su PharmD [address] [place] [address] Pharmacist Internal Medicine 12/05/23 Cecily Pinedo RN [address] [place] [address] Ingot PasserWafer Machine Operator 01/08/24 [facility] 01/09/24 documented as of this encounter
--- OUTSIDE RECORDS SUMMARY | 2024-03-28 12:59 | XMS_ITS | Encounter Summary ---
Author Organization [employer] Address [address] 7t [place] [address] Care Team Providers Care Staple Processing Machine Operator Name Role Phone Matilde Calabrese MD Primary Care Provide r Kourtney Su PharmD Unavailable [phone] Cecily Pinedo RN Unavailable [phone] Reason for Visit * Reason Onset Date Comments Care Management 03/19/2024 C3CM- f/u call Encounter Details Date Type Department Care Team ([facility] st Contact Info) Description 03/19/2024 Telephone [facility] MEDICINE [address] [place] [address] Cecily Pinedo, RN [address] [place] [address] Care Management (C3CM- f/u call) Social History [...] Telephone Encounter - Cecily Pinedo RN - 03/19/2024 12:31 PM EST CM Cecily Pinedo RN placed outbound call to patient. Patient's name, and address confirmed. Patient states he was seen at [facility] ED on 03/16/24 for bilateral eye pain and facial pain. Per patient, was informed that the CT he completed showed inflammation or possible infection? Patient states he was prescribed antibiotics but has not yet started them as he was already taking amoxicillin and was unsure if taking both was contraindicated. Per patient, called the office to inquire but was not ableto connect with staff. He states he followed up with a pharmacy to inquire and was advised okay to take. He states he will be going to the pharmacy today to car pick up driver Rx. Per patient, continues to experience headache. He states the headaches are usually present at night-time. Per patient, feels like there is fluid build-up? Patient states my eyes are usually dry during the day but lately I've beenwaking up with crust in my eyelids . CM noted ED note mentioned referral to ENT? Office contact information not included in the ED note. CM scheduled patient for ED f/u on 03/21/24 at 12:30pm to address symptoms and referral. Patient denies any barriers to attending the visit. Patient followed up with General Surgery as scheduled. Sutures removed during visit. He denies any s/s infection. Patient also seen by Podiatry on 03/11. He reports being scheduled for a f/u on 03/25/24. He denies any barriers to attending the visit. Per patient, stopping by the pharmacy today to car pick up driver the Trulicity refill. He is aware of his scheduled visit with Rhina 03/26/24. Patient denies any further needs or concerns at this time. No further questions or concerns. CM reinforced direct contact information for any additional questions or concerns. Education provided on [facility]In Ur[facility] Care located in [facility] of [facility]. Patient provided with after-hours line for [facility], , which offer night time triage service and option to transfer to compensation business partner provider if needed. Patient verbalizes understanding, and able to r epeat back to music writer. A follow up call will be placed within 10 days, patient agrees with plan. documented in this encounter Plan of Treatment Upcoming Encounters Date Type Department Care Team ([facility] st Contact Info) Description 04/09/2024 10:30 AM EST Medication Management [facility] MEDICINE [address] [place] [phone] Kourtney Su, PharmD [address] [place] [address] 05/06/2024 10:00 AM EDT Office Visit [facility] MEDICINE [address] [place], [place] [phone] Matilde Calabrese MD [address] [place] [address] 06/03/2024 11:30 AM EDT Office Visit [facility] MED & PEDS [address] [place], [place] [phone] Rodger Cole MD [address] [place] [address] documented as of this encounter Visit Diagnoses Not on filedocumented in this encounter Additional Health Concerns Assessment Noted Time PHQ-9 Depression Total Score: 18 024 9:55 AM EST documented as of this encounter Care Teams Staple Processing Machine Operator Relationship Specialty Start Date End Date Matilde Calabrese MD [address] [place] [address] PCP - General Internal Medicine 11/23/23 Kourtney Su, EmmaD [address] [place] [address] Pharmacist Internal Medicine 12/05/23 Cecily Pinedo RN [address] [place] [address] Evaporator SupervisorAnimal Behaviorist 01/08/24 [facility] 01/09/24 documented as of this encounter
--- OUTSIDE RECORDS SUMMARY | 2024-03-28 12:59 | XMS_ITS | Encounter Summary ---
Author Organization [employer] Address [address] [place] [address] Care Team Providers Care Window Glass Cutter Off Name Role Phone Matilde Calabrese MD Primary Care Provide r Encounter Details Date Type Department Care Team (Latest Contact Info) Description 03/07/2024 9:30 AM EST Clinical Support General Surgery - [place] [address] [place] [address] Visit for suture removal (Primary [...] given by: Patient Alternatives discussed: No treatment [place] protocol: Patient identity confirmed: Verbally with patient Location: Location: Head/neck Head/neck location: Neck Procedure details: Wound appearance: No signs of infection and good wound healing Post-procedure details: Post-removal: No dressing applied Procedure completion: Tolerated documented in this encounter Plan of Treatment Not on file documented as of this encounter Procedures Procedure [...] given by: ??Patient ??Alternatives discussed: ??No treatment [place] protocol: ??Patient identity confirmed: ??Verbally with patient Location: ??Location: ??Head/neck ??Head/neck location: ??Neck Procedure details: ??Wound appearance: ??No signs of infection and good wound healing Post-procedure details: ??Post-removal: ??No dressing applied ??Procedure completion: ??Tolerated Nic Nieto MD IN CLINIC/BEDSIDE OR DERABLES documented in this encounter Visit Diagnoses Diagnosis Visit for suture removal- Primary documented in this encounter Care Teams Window Glass Cutter Off Relationship Specialty Start Date End Date Matilde Calabrese MD [address] [phone] PCP - General 11/22/23 documented as of this encounter
--- OUTSIDE RECORDS SUMMARY | 2024-03-28 12:59 | XMS_ITS | Encounter Summary ---
Author Organization [employer] Address 75 [facility] 7t [place] [address] Care Team Providers Care Launchman Name Role Phone Alexandre Sandoval MD Primary Care Prov ider Matilde Calabrese MD Primary Care Provide r Kourtney Su PharmD Unavailable [phone] Cecily Pinedo RN Unavailable [phone] Reason for Visit * Reason Comments Med Change Request Encounter Details Date Type Department Care Team (Late Contact Info) Description 05/23/2022 Refill [facility] CHC MED & PEDS [address] [place], [place] [phone] Alexandre Sandoval MD [address] [place] [address] Social History Tobacco Use Types Packs/Day Years [...] Department Care Team (Late Contact Info) Description 04/09/2024 10:30 AM EST Medication Management [facility] MEDICINE [address] [place] [address] Kourtney Su, PharmD [address] [place] [address] 05/06/2024 10:00 AM EDT Office Visit [facility] MEDICINE [address] [place] [address] Matilde Calabrese MD [address] [place] [address] 06/03/2024 11:30 AM EDT Office Visit [facility] CHC MED & PEDS [address] [place] [address] Rodger Cole MD [address] [place] [address] documented as of this encounter Visit Diagnoses Not on filedocumented in this encounter Care Teams Launchman Relationship Specialty Start Date End Date Alexandre Sandoval MD [address] [place] [address] PCP - General Internal Medicine 07/20/19 11/22/23 Matilde Calabrese MD [address] [place] [address] PCP - General Internal Medicine 11/23/23 Kourtney Su, PharmD [address] [place] [address] Pharmacist Internal Medicine 12/05/23 Cecily Pinedo RN [address] [place] [address] Shop CooperElectro Plater 01/08/24 [facility] 01/09/24 documented as of this encounter
--- OUTSIDE RECORDS SUMMARY | 2024-03-28 12:59 | XMS_ITS | Encounter Summary ---
Author Organization [employer] Address [address] [facility] [address] 7t [place] [address] Care Team Providers Care Material Preparation Worker Name Role Phone Matilde Calabrese MD Primary Care Provide r Kourtney Su PharmD Unavailable [phone] Cecily Pinedo RN Unavailable [phone] Encounter Details Date Type Department Care Team (Late st Contact Info) Description 03/11/2024 Telephone [facility] MEDICINE [address] [place], [place] [phone] Kourtney Su, PharmD [address] [place] [address] Social History Tobacco Use Types Packs/Day Years [...] Su PharmD - 03/11/2024 4:47 PM EST [facility] outreached patient due to reported concern of [...] hypoglycemia. Refill for glucose tablets prescribed. [facility] has scheduled follow up with patient next week. documented in this encounter Plan of Treatment Upcoming Encounters Date Type Department Care Team (Late st Contact Info) Description 04/09/2024 10:30 AM EST Medication Management [facility] MEDICINE [address] [place] [address] Kourtney Su PharmD [address] [place] [address] 05/06/2024 10:00 AM EDT Office Visit [facility] MEDICINE [address] [place] [address] Matilde Calabrese MD [address] [place] [address] 06/03/2024 11:30 AM EDT Office Visit [facility] CHC MED & PEDS [address] [place], [place] [phone] Rodger Cole MD 505 [place], [place] [phone] documented as of this encounter Visit Diagnoses Diagnosis Type 2 diabetes mellitus with hyperglycemia, with long-term current use of insulin ([facility])- Primary documented in this encounter Additional Health Concerns Assessment Noted Time PHQ-9 Depression Total Score: 18 024 9:55 AM EST documented as of this encounter Care Teams Material Preparation Worker Relationship Specialty Start Date End Date Matilde Calabrese MD [address] [place] [address] PCP - General Internal Medicine 11/23/23 Kourtney Su, PharmD [address] [place] [address] Pharmacist Internal Medicine 12/05/23 Cecily Pinedo, ROSA [address] [place] [address] AprnSpring Layer 01/08/24 [facility] 01/09/24 documented as of this encounter
--- OUTSIDE RECORDS SUMMARY | 2024-03-28 12:59 | XMS_ITS | Encounter Summary ---
Author Organization [employer] Address [address] [facility] 7t [place] [address] Care Team Providers Care Registered Art Therapist Name Role Phone Alexandre Sandoval MD Primary Care Prov ider Matilde Calabrese MD Primary Care Provide r Kourtney Su PharmD Unavailable [phone] Cecily Pinedo RN Unavailable [phone] Encounter Details Date Type Department Care Team (Late st Contact Info) Description 11/08/2023 Telephone [facility] MEDICINE [address] [place] [address] Marie Birmingham PharmD [address] [place] [address] Social History Tobacco Use Types Packs/Day Years [...] Please assist in obtaining discharge paperwork from [facility] Patient was discharged on 11/04/2023. Thank you documented in this encounter Plan of Treatment Upcoming Encounters Date Type Department Care Team (Late st Contact Info) Description 04/09/2024 10:30 AM EST Medication Management [facility] MEDICINE [address] [place] [address] Kourtney Su PharmD [address] [place] [address] 05/06/2024 10:00 AM EDT Office Visit [facility] MEDICINE [address] [place] [address] Matilde Calabrese MD [address] [place] [address] 06/03/2024 11:30 AM EDT Office Visit [facility] CHC MED & PEDS [address] [place] [address] Rodger Cole MD [address] [place] [address] documented as of this encounter Visit Diagnoses Not on filedocumented in this encounter Care Teams Registered Art Therapist Relationship Specialty Start Date End Date Alexandre Sandoval MD [address] [place] [address] PCP - General Internal Medicine 07/20/19 11/22/23 Matilde Calabrese MD [address] [place] [address] PCP - General Internal Medicine 11/23/23 Kourtney Su, EmmaD [address] [place] [address] Pharmacist Internal Medicine 12/05/23 Cecily Pinedo RN 505 [place] [address] Class 1 Owner OperatorRn Endocrinology 01/08/24 [facility] 01/09/24 documented as of this encounter
--- OUTSIDE RECORDS SUMMARY | 2024-03-28 12:59 | XMS_ITS | Encounter Summary ---
Author Organization [facility] Address [address] [place] [address] Care Team Providers Care Press Officer Name Role Phone Matilde Calabrese MD Primary Care Provide r Reason for Visit * Reason Comments Eye Pain Right eye pain since Sunday Encounter Details Date Type Department Care Team (Late st Contact Info) Description 03/09/2024 10:05 PM EST - 03/10/2024 1:[address] [facility] Emergency [address] [place] [address] Ocular migraine (Primary Dx) Discharge [...] or require a referral, a follow-up doctor marine transport professionals for the emergency department will be provided [...] following to make arrangements to follow up. [facility] Shira Gilmer [facility] * Attachments The following attachments cannot be sent through Care Everywhere. * Migraine Headache (Khmer) documented in this encounter Discharge Disposition Disposition [...] ??? OTHER SURGICAL HISTORY Left 04/16/2023 PROCEDURE: CT I&D BELOW FASCIA FOOT 1 BURSAL SPACE ??? OTHER SURGICAL HISTORY Left 04/18/2023 PROCEDURE: CT INCISION BONE CORTEX FOOT; COMMENT: left, distal hallux ??? OTHER SURGICAL HISTORY 04/18/2023 PROCEDURE: CT REPAIR INTERMEDIATE N/H/F/XTRNL GENT 2.5CM/< ??? TOE [...] drop (2 drops Right Eye Given 03/09/24 4584) fluorescein 1 mg ophthalmic strip 1 strip (1 strip Right Eye Given 03/09/24 6447) Medical Decision Making Differential diagnose include but [...] on file documented as of this encounter Visit Diagnoses [...] On 03/09/24 at 2241, For 1 dose 2245 (Given - Provider: Alisha Grey RN - Comment: ADMINISTERED BY PROVIDER.) ketorolac (TORADOL) injection 15 mg (COMPLETED) 15 mg, intravenous, Once, On 03/09/24 at 2320, For 1 dose 2332 (Given - Provider: Juli Davenport RN) metoclopramide (REGLAN) injection 5 mg (COMPLETED) 5 mg, intravenous, Once, On 03/09/24 at 2320, For 1 dose, Doses LESS than or equal to 10 mg can be given IV push undiluted over 1 minute 2335 (Given - Provider: Juli Davenport RN) sodium [...] on 03/09/24 at 2240, For 1 dose 2244 (Given - Provider: Alisha Grey RN - Comment: ADMINISTERED BY PROVIDER.) documented in this encounter Care Teams Press Officer Relationship Specialty Start Date End Date Matilde Calabrese MD [address] [phone] PCP - General 11/22/23 documented as of this encounter
--- OUTSIDE RECORDS SUMMARY | 2024-03-28 12:59 | XMS_ITS | Encounter Summary ---
Author Organization [employer] Address [address] [facility] [address] [place] [address] Care Team Providers Care Wildlife Control Operator Name Role Phone Matilde Calabrese MD Primary Care Provide r Kourtney Su PharmD Unavailable [phone] Cecily Pinedo RN Unavailable [phone] Reason for Visit * Reason Comments Transition Of Care (Tcm) Encounter Details Date Type Department Care Team ([facility] st Contact Info) Description 03/17/2024 Patient Outreach [facility] MEDICINE [address] [place] [address] Matilde Calabrese MD [address] [place] [address] Transition Of Care (Tcm) Social History Tobacco [...] Admission/Visit 03/16/24 Date of Discharge 03/16/24 Facility [facility] Diagnosis Facial Pain, Eye Problem, Headache, unspecified Disposition Discharged Home * Eli Ramsay RN - 03/17/2024 9:03 AM EST Transition of Care Note Raji is going through a recent transition of care. Hospital Discharges and Admission for [facility] Type of Visit: Emergency Department Date of Admission/Visit: 03/16/24 Date of Discharge: 03/16/24 Facility: [facility] Diagnosis: Acute nonintractable headache Disposition: Discharged Home Follow-Up Actions Follow-Up Needed: Specialist appointment Follow-Up Outcome: Spoke to Patient Initial Contact Date: 03/17/24 [facility] Recent Visits Date Type Provider Dept 03/11/24 Office Visit Christian Fuchs MD [facility] Medicine 03/03/24 Office Visit Charity Luna DO [facility] Walk-In [facility] 02/15/24 Office Visit BRITTANY Mott [facility] Med & Peds 02/02/24 Office Visit Wendy Wright NP [facility] 01/08/24 Office Visit Erin Bueno MD [facility] 12/27/23 Office Visit Matilde Hudson MD [facility] Medicine 11/14/23 Office Visit Matilde Hudson MD [facility] Medicine 03/20/23 Office Visit Matilde Hudson MD [facility] Medicine Showing recent visits within past 540 days with a meds authorizing provider and meeting all other requirements Future Appointments Date Type Provider Dept 03/26/24 Appointment Kourtney Su PharmD [facility] Medicine 05/06/24 Appointment Matilde Hudson MD [facility] Medicine 06/03/24 Appointment Rodger Cole MD [facility] Med & Peds Showing future appointments within next 150 days with a meds authorizing provider and meeting all other requirements TC placed to patient [phone] to status check. Patient reports he was [...] do not improve to return call to [facility] for an appointment to be re-evaluated once abx are completed. Patient to f/u PRN. documented in this encounter Plan of Treatment Upcoming Encounters Date Type Department Care Team (Late st Contact Info) Description 04/09/2024 10:30 AM EST Medication Management [facility] MEDICINE [address] [place] [phone] Kourtney Su PharmD [address] [place] [phone] 05/06/2024 10:00 AM EDT Office Visit [facility] MEDICINE [address] [place] [phone] Matilde Calabrese MD [address] [place] [phone] 06/03/2024 11:30 AM EDT Office Visit [facility] MED & PEDS [address] [place] [address] Rodger Cole MD [address] [place] [address] documented as of this encounter Visit Diagnoses Not on filedocumented in this encounter Additional Health Concerns Assessment Noted Time PHQ-9 Depression Total Score: 18 12/26/ 024 9:55 AM EST documented as of this encounter Care Teams Wildlife Control Operator Relationship Specialty Start Date End Date Matilde Calabrese MD [address] [place] [phone] PCP - General Internal Medicine 11/23/23 Kourtney Su PharmD [address] [place] [phone] Pharmacist Internal Medicine 12/05/23 Cecily Pinedo RN [address] [place] [phone] Floating Derrick OperatorCupola Man 01/08/24 [facility] 01/09/24 documented as of this encounter
--- OUTSIDE RECORDS SUMMARY | 2024-03-28 12:59 | XMS_ITS | Clinical Summary ---
Author Organization [employer] Address [address] [facility] [address] [place] [address] Care Team Providers Care Waste Reduction Coordinator Name Role Phone Matilde Calabrese MD Primary Care Provide r Kourtney Su PharmD Unavailable [phone] Cecily Pinedo RN Unavailable [phone] Allergies Active Allergy Reactions Criticality Noted Date Comments Ibuprofen 07/12/[address] not to take it because my kidneys . Other Reaction(s): Renal Impairment But can take indomethacin without problems Iodinated Contrast Media 05/11/2023 Other Reaction(s): Renal Impairment Medications Blood Glucose Monitoring Suppl (FreeStyle Lite) w/Device kit 1 Units in the morning. 1 kit 023 Active Continuous Glucose Health Science Instructor (FreeStyle Cherelle 2 Evans) deviceIndication s:Type 2 diabetes mellitus with hyperglycemia, without long-term current use of insulin ([facility]) Scan sensor every 8 hours 1 each 024 Active glucose blood (FreeStyle Precision Jefry Test) test stripIndications :Type 2 diabetes mellitus with hyperglycemia, without long-term current use of insulin ([facility]) Use to test blood sugar 3 times daily 100 each 12 024 2024 Active FreeStyle lancetsIndicatio ns:Type 2 diabetes mellitus with hyperglycemia, with long-term current use of insulin (CMS/[facility]) 1 each by Other route 4 times daily. 100 each 11 024 Active carvedilol (Coreg) 6.25 MG tabletIndication s:Primary hypertension Take 1 tablet by mouth twice daily 180 tablet Active pen needle 32G x 4 mm miscIndications: Type 2 diabetes mellitus with hyperglycemia, with long-term current use of insulin (CMS/[facility]) Use as instructed with insulin administration once daily 100 each 024 2024 Active UltiCare Alcohol Swabs 70 % padsIndications: Type 2 diabetes mellitus with hyperglycemia, with long-term current use of insulin ([facility]) Use as directed with insulin administration once daily 100 each 3 Active omeprazole OTC (PriLOSEC OTC) 20 MG EC tablet Take 1 tablet (20 mg) by mouth before breakfast. Do not crush, chew, or split. 30 tablet 11 024 2024 Active Blood Pressure Monitoring (Blood Pressure Cuff) miscIndications: Essential (primary) hypertension 1 each Once daily. 1 each Active clindamycin (Clindagel) 1 % gelIndications:H idradenitis suppurativa Apply topically Once per day. Apply to affected areas for HS. 60 g 2 024 2024 Active benzoyl peroxide (Benzac AC) 10 % external washIndications: Hidradenitis suppurativa Use to wash affected areas nightly. Please be aware that may bleach towels/clothes. 142 g 2 Active Dulaglutide (Trulicity) 3 MG/0.5ML solution auto-injectorInd ications:Type 2 diabetes mellitus with hyperglycemia, with long-term current use of insulin ([facility]) Inject 0.5 mL (3 mg) under the skin 1 (one) time per week. 2 mL 3 Active polyethylene glycol, PEG, 3350 (MiraLax) 17 GM/SCOOP powderIndication s:Constipation, unspecified constipation type Take 17 g by mouth Once per day. 527 g 1 025 2024 Active docusate sodium (Colace) 100 MG capsuleIndicatio ns:Constipation, unspecified constipation type Take 1 capsule (100 mg) by mouth 2 times daily. 60 capsule 1 025 2024 Active insulin degludec (Tresiba FlexTouch) 100 UNIT/ML injectionIndicat ions:Type 2 diabetes mellitus with hyperglycemia, with long-term current use of insulin ([facility]) Inject subcutaneously 18 units once daily 15 mL Active gabapentin (Neurontin) 300 MG capsule Take [...] hyperglycemia, with long-term current use of insulin ([facility]) Use as directed for low blood sugar 50 tablet 11 Active fluticasone (Flonase) 50 MCG/ACT nasal sprayIndications :Right chronic serous otitis media Administer 1-2 sprays into each nostril Once per day. Shake gently. Before first use, prime pump. After use, clean tip and replace cap. 16 g 2 2025 Active cefdinir (Omnicef) 300 MG capsuleIndicatio ns:Right chronic serous otitis media Take 1 capsule (300 mg) by mouth 2 times daily for 7 days. 14 capsule 025 2024 Active aspirin-acetamin ophen-caffeine (Excedrin Migraine) 250-250-65 MG tablet Take 1 tablet by mouth every 6 (six) hours if needed for headaches for up to 10 days. 30 tablet 025 2024 Active amLODIPine (Norvasc) 10 MG tabletIndication s:Primary hypertension Take 1 tablet by mouth once daily 90 tablet Active atorvastatin (Lipitor) 20 MG tabletIndication s:Type 2 diabetes mellitus with hyperglycemia, with long-term current use of insulin ([facility]) Take 1 tablet by mouth once daily 90 tablet Active Continuous Glucose Sensor (FreeStyle Cherelle 2 Sensor) miscIndications: Type 2 diabetes mellitus with hyperglycemia, with long-term current use of insulin ([facility]) Apply 1 sensor every 14 days 2 each 11 Active levothyroxine (Synthroid) 100 MCG tabletIndication s:Acquired hypothyroidism Take 1 tablet (100 mcg) by mouth before breakfast. 90 tablet 3 025 2025 Active lisinopril (Prinivil) 20 MG tabletIndication s:Hypertension, unspecified type Take 1 tablet (20 mg) by mouth Once per day. 90 tablet 3 025 2025 Active baclofen (Lioresal) 10 MG tablet Take 1 tablet (10 mg) by mouth 3 times daily. 90 tablet 023 2024 Discontinued(T herapy completed) levothyroxine (Synthroid) 100 MCG tabletIndication s:Acquired hypothyroidism Take 1 tablet (100 mcg) by mouth before breakfast. 90 tablet 3 024 2024 Discontinued(R eorder (will not trigger notification to Pharmacy)) [facility] Glucose 4 g chewable tablet CHEW 4 TABLETS EVERY 15 MINS NEEDED FOR HYPOGLYCEMIA, MY REPEAT ONCE, NOT COVERED 024 2024 Discontinued(M ed list cleanup (will not trigger notification to Pharmacy)) lisinopril (Prinivil) 10 MG tabletIndication s:Essential (primary) hypertension Take 1 tablet (10 mg) by mouth Once per day. 30 tablet 11 024 2024 Discontinued(D ose adjustment) Continuous Glucose Sensor (FreeStyle Cherelle 2 Sensor) miscIndications: Type 2 diabetes mellitus with hyperglycemia, without long-term current use of insulin ([facility]) Apply 1 sensor every 14 days 2 each 1 024 2024 Discontinued(R eorder (will not trigger notification to Pharmacy)) gabapentin (Neurontin) 100 MG capsuleIndicatio ns:Diabetic polyneuropathy associated with type 2 diabetes mellitus ([facility]) Take 1 capsule (100 mg) by mouth if needed in the morning, at noon, and at bedtime (for breakthrough pain). 90 capsule 1 024 2024 Discontinued(D ose adjustment) amLODIPine (Norvasc) 10 MG tabletIndication s:Primary hypertension Take 1 tablet by mouth once daily 90 tablet 024 2024 Discontinued(R eorder (will not trigger notification to Pharmacy)) lisinopril (Prinivil) 20 MG tabletIndication s:Hypertension, unspecified type Take 1 tablet (20 mg) by mouth Once per day. 30 tablet 1 024 2024 Discontinued(R eorder (will not trigger notification to Pharmacy)) acetaminophen (Tylenol) 325 MG tablet PLEASE SEE ATTACHED FOR DETAILED DIRECTIONS 2024 Discontinued oxyCODONE-acetam inophen (Percocet) 5-325 MG tablet TAKE 1 TABLET BY MOUTH EVERY 6 HOURS NEEDED FOR SEVERE PAIN FOR UP TO 3 DAYS. MAX 4 TABS/DAY 024 2024 Discontinued atorvastatin (Lipitor) 20 MG tabletIndication s:Type 2 diabetes mellitus with hyperglycemia, with long-term current use of insulin ([facility]) Take 1 tablet by mouth once daily 90 tablet 025 2024 Discontinued(R eorder (will not trigger notification to Pharmacy)) traMADol (Ultram) 50 MG tabletIndication s:Right foot pain Take 1 tablet (50 mg) by mouth every 8 (eight) hours if needed for severe pain for up to 3 days. 9 tablet 025 2024 celecoxib (CeleBREX) 200 MG capsule Take 1 capsule by mouth 2 times daily. 2024 Discontinued(T herapy completed) clindamycin (Cleocin) 150 MG capsule Take 3 capsules by mouth every 6 (six) hours during the day. 024 2024 Discontinued(T herapy completed) levoFLOXacin (Levaquin) 500 MG tabletIndication s:Right chronic serous otitis media Take 500 mg by mouth Once per day. 025 2024 Active Problems Problem Noted Date Diagnosed Date Ocular pain, right eye 03/11/2024 Assessment & Plan (03/11/2024 4:17 PM EST): Pt with c/o persistent right ocular pain x 5 days in the absence of any injury. No fever. He does c/o right sided headache as well. Seen at [facility] ER, intraocular pressure per ER report on right eye was normal. On today's exam pt has photophobia and painful extraocular movements on the right. No redness, mild tenderness to palpation right eye. Etiology ? Ocular migraine vs other etiologies Plan: Stat Orbital and head CT. CBC, ESR. Pt to be seen by our Vendor Specialist Dr. Gresham tomorrow at 3:45 PM Follow [...] (02/17/2024 5:00 PM EST): - Referral to [facility] Derm team placed 02/17/24 - Start [...] Encounters Date Type Department Care Team Description 03/26/2024 Telephone [facility] [address] [place] [phone] Cecily Pinedo, ROSA 03/21/2024 12:30 PM EST Office Visit [facility] [address] [place] [address] Randi Jiménez MD Ocular pain, right eye (Primary Dx); Type 2 diabetes mellitus with hyperglycemia, with long-term current use of insulin ([facility]); Dietary counseling; Exercise counseling; Class 3 severe obesity with serious comorbidity and body mass index (BMI) of 45.0 to 49.9 in adult, unspecified obesity type (CMS/HCC); Primary hypertension; Type 2 diabetes mellitus with hyperglycemia, without long-term current use of insulin (CMS/HCC); Acquired hypothyroidism; Hypertension, unspecified type; Right chronic serous otitis media 03/21/2024 Travel 03/21/2024 Telephone [facility] [address] [place] [address] Ileana Jones, RN Results 03/19/2024 Telephone [facility] [address] [place] [address] Cecily Pinedo RN 03/19/2024 Patient Outreach [facility] [address] [place] [phone] Matilde Calabrese MD Care Coordination (SDOH) 03/19/2024 Telephone [facility] [address] [place] [address] Cecily Pinedo, ROSA Care Management (C3CM- f/u call) 03/17/2024 Patient Outreach [facility] [address] [place] [phone] Matilde Calabrese MD Transition Of Care (Tcm) 03/14/2024 Orders Only [facility] [address] [place] [address] Christian Muñoz MD 03/12/2024 3:45 PM EST Office Visit [facility] OPTOMETRY [address] [place] [address] Anisha Gresham, OD Ocular pain, right eye (Primary Dx); 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 (CMS/HCC); Intermittent exotropia, alternating 03/12/2024 Travel 03/12/[address] [place] [address] Cecily Pinedo RN 03/11/2024 3:00 PM EST Office Visit [address] [place] [address] Christian Muñoz MD Ocular pain, right eye; Acute intractable headache, unspecified headache type 03/11/[address] [address] Kourtney Su PharmD 03/11/2024 Travel 03/11/2024 Patient Outreach [address] [address] Matilde Calabrese MD Transition Of Care (Tcm) 03/07/[address] [address] Cecily Pinedo, ROSA Care Coordination 03/07/[address] [address] Cecily Pinedo, ROSA Care Management (C3CM- f/u call) 03/06/2024 Patient Outreach [address] [address] Matilde Calabrese MD Care Coordination (SDOH/appt reminders) 03/03/2024 10:00 AM EST Office Visit [facility] [address] [place] [phone] Charity Luna DO Right foot pain (Primary Dx) 02/29/[address] [address] Matilde Calabrese MD Call Back Request 02/28/[address] [address] Matilde Calabrese MD 02/27/2024 Travel 02/26/2024 10:30 AM EST Telemedicine [address] [address] Kourtney Su, PharmFaviola Type 2 diabetes mellitus with hyperglycemia, with long-term current use of insulin ([facility]) (Primary Dx) 02/26/2024 Orders Only [address] [address] Matilde Calabrese MD Constipation, unspecified constipation type (Primary Dx) 02/26/[address] [address] Chante Davis, ROSA 02/25/[address] [address] Cecily Pinedo, ROSA 02/25/[address] [address] Cecily Pinedo, ROSA Care Management (C3CM- f/u call) 02/22/[address] [address] Kourtney Su, EmmaD 02/19/[address] [address] Ileana Jones RN Hyperglycemia 02/19/2024 Travel 02/18/[address] [address] Matilde Calabrese MD CRITICAL RESULT 02/18/2024 Orders Only GENERIC EXTERNAL DATA DEPARTMENT Provider, Generic External Data 02/18/2024 Patient Outreach [address] [address] Matilde Calabrese MD Care Coordination (Appt reminders) 02/18/2024 Travel 02/15/2024 10:00 AM EST Office Visit [facility] [address] [place] [address] Silvia George, TRAINING DEVELOPMENT SPECIALIST Carpal tunnel syndrome, unspecified laterality (Primary Dx); Type 2 diabetes mellitus with hyperglycemia, with long-term current use of insulin (CMS/HCC); Hidradenitis suppurativa; Essential (primary) hypertension 02/15/2024 Travel 02/14/2024 Patient Outreach [address] [address] Matilde Calabrese MD Care Coordination (APPT REMINDER) 02/11/[address] [address] Cecily Pinedo RN Care Management (C3CM- f/u call) 02/07/2024 Orders Only [facility] [address] [place] [address] Ari Guidry MD 02/07/[address] [address] Linn Connelly RN 02/06/[address] [address] Matilde Calabrese MD No Show 02/06/[address] [address] Matilde Calabrese MD 02/05/2024 Patient Outreach [address] [address] Matilde Calabrese MD 02/05/2024 Patient Outreach [address] [address] Matilde Calabrese MD Care Coordination (Appt reminder) 02/04/[address] [address] Ariana Briggs MA Chart Prep 02/02/2024 9:40 AM EST Office Visit [facility] [address] [place] [address] Wendy Wright NP Abscess (Primary Dx); Cellulitis of neck; Hypertension, unspecified type 02/01/2024 Patient Outreach [address] [address] Matilde Calabrese MD Transition Of Care (Tcm) 01/31/[address] [address] Ariana Briggs MA X-RAY RESULTS 01/31/2024 Orders Only [facility] [address] [place] [address] Ari Guidry MD 01/31/[address] [address] Cynthia Zepeda MA Results 01/31/2024 Patient Outreach [address] [address] Matilde Calabrese MD Care Coordination (PT1) 01/28/2024 Patient Outreach [address] [address] Matilde Calabrese MD Care Coordination (PT1) 01/28/2024 Patient Outreach [address] [address] Matilde Calabrese MD 01/25/[address] [address] Cecily Pinedo RN Care Management (C3CM- f/u call) 01/25/2024 Patient Outreach [address] [address] Matilde Calabrese MD Care Coordination (SDOH) 01/16/2024 Patient Outreach [address] [address] Matilde Calabrese MD Care Coordination (SDOH) 01/11/[address] [address] Cecily Pinedo RN Care Coordination 01/08/2024 2:40 PM EST Office Visit [facility] [address] [address] Erin Bueno MD LLQ abdominal pain (Primary Dx) 01/08/2024 Telephone [facility] [address] [address] Erin Bueno MD 01/08/2024 Orders Only [address] [address] Matilde Calabrese MD Essential (primary) hypertension (Primary Dx); Decreased hearing of both ears 01/08/[address] [address] Cecily Pinedo, ROSA Care Management (C3CM- initial assessment/ enrollment) 01/07/2024 Patient Outreach [address] [address] Matilde Calabrese MD Care Coordination (CM/CHW appt reminder) 01/07/[address] [address] Kourtney Su, Samara 01/07/2024 Travel 12/31/[address] [address] Eli Ramsay, RN VNA; FYI 12/31/2023 Patient Outreach [address] [address] Matilde Calabrese MD Care Coordination (CM/CHW appt ) 12/28/[address] [address] Ariana Briggs MA Durable Medical Equipment (/) 12/27/2023 9:30 AM EST Office Visit [address] [address] Matilde Calabrese MD Essential (primary) hypertension (Primary Dx); Type 2 diabetes mellitus with hyperglycemia, with long-term current use of insulin ([facility]); Type 2 diabetes mellitus with hyperglycemia, without long-term current use of insulin ([facility]); Nail disease; Diabetic polyneuropathy associated with type 2 diabetes mellitus (CMS/HCC); Bilateral wrist pain; Encounter for immunization 12/27/[address] [phone] Matilde Calabrese MD Letter for School/Work 12/27/2023 Travel from Last 3 Months Immunizations Name Administration [...] Sign Reading Time Taken Comments Blood Pressure 146/104 03/21/2024 12:27 PM EST Pulse 96 03/21/2024 12:27 PM EST Temperature 35.7 ??C (96.3 ??F) 03/21/2024 12:[address] Respiratory Rate 18 03/21/2024 12:27 PM EST Oxygen Saturation 98% 03/11/2024 3:22 PM EST Inhaled Oxygen Concentration - - Weight 129 kg (284 lb 6.4 oz) 03/21/2024 12:27 P M EST Height 162.6 cm (5' 4 ) 03/21/2024 12:27 PM EST Body Mass Index 48.82 03/21/2024 12:27 PM EST Plan of Treatment Upcoming Encounters Date Type Department Care Team (Late st Contact Info) Description 04/09/2024 10:30 AM EST Medication Management [facility] [address] [place] [address] Kourtney Su, PharmD [address] [place] [address] 05/06/2024 10:00 AM EDT Office Visit [facility] [address] [place] [address] Matilde Calabrese MD [address] [place] [address] 06/03/2024 11:30 AM EDT Office Visit [facility] [address] [place] [address] Rodger Cole MD [address] [place] [address] Health Maintenance Due Date Last Done Comments HIV Screening 1985 Family Planning (PISQ) 2001 COVID-19 Vaccine ( season) 2023 04/09/2020, 03/12/2020 Hepatitis B Vaccines (3 of 3 - 19+ 3-dose series) 06/04/2024 02/18/2024, 12/05/2023 Diabetes: Hemoglobin A1C 06/18/2024 025, 02/18/2024, 11/14/2023, Additional history exists Depression Monitoring (PHQ-9) 06/25/2024 12/27/2023, 12/27/2023 Alcohol/Substance Use Screening 12/26/2024 12/27/2023 Depression Screening 12/26/2024 12/27/2023, 12/27/19 SDOH Screening 01/15/2025 01/16/2024 Diabetes: Urine Protein Screening 02/17/2025 02/18/2024, 07/25/2022, 01/09/2020 Lipid Panel 02/17/2025 02/18/2024, 01/09/2020 Diabetes: Foot Exam 03/03/2025 03/03/2024 Eye Exam 03/12/2025 03/12/2024, 02/20, 03/12/2024, Additional history exists Tobacco Screening 03/21/2025 03/21/2024 DTaP/Tdap/Td Vaccines (3 - Td or Tdap) 08/19/2028 08/19/2018, 02/05/2012 Zoster Vaccines (1 of 2) 2036 RSV Patients and Patients Aged 60 years or older (1 - 1-dose 75+ series) 2061 Pneumococcal Vaccine: Pediatrics (0 to 5 Years) and At-Risk Patients (6 to 49) Years) Completed 12/27/2023, 08/19/2018 Hepatitis C Screening [...] Name Priority Date/Time Associated Diagnosis Comments POCT GLYCATED HEMOGLOBIN, TOTAL Routine 03/21/2024 12:35 PM EST Type 2 diabetes mellitus with hyperglycemia, with long-term current use of insulin ([facility]) POCT GLUCOSE Routine 03/21/2024 12:35 PM EST Type 2 diabetes mellitus with hyperglycemia, with long-term current use of insulin ([facility]) CT ORBIT BI WO CONTRAST Routine 03/14/2024 10:[address] HEAD WO CONTRAST Routine 03/14/2024 1 0:02 AM EST Ocular pain, right eye Acute intractable headache, unspecified headache type FUNDUS PHOTOS - OU - BOTH EYES Routine 03/12/2024 3:45 PM EST 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 ([facility]) BASIC METABOLIC PANEL Routine 03/12/2024 2:58 PM [...] hyperglycemia, with long-term current use of insulin ([facility]) CT ABDOMEN PELVIS WO CONTRAST Routine 02/06/2024 12:[address] SOFT TISSUE NECK W CONTRAST Routine 01/31/2024 9:58 AM EST C-REACTIVE PROTEIN Routine 01/08/2024 2: 03 PM EST LLQ abdominal pain CBC WITH AUTO DIFFERENTIAL Routine 01/08/2024 2:03 PM EST LLQ abdominal pain POCT GLUCOSE Routine 12/27/2023 9:43 AM EST Type 2 diabetes mellitus with hyperglycemia, with long-term current use of insulin ([facility]) from Last 3 Months Results * (ABNORMAL) POCT HGB A1C (03/21/2024 12:35 PM EST) Only the most recent of2 resultswithin the time period is included. Hemoglobin A1C 9.2(A) 4.0 - 6.0 % QC Media Lot # [id number] Lot# Expiration Date Blood 03/21/2024 12:3 5 PM EST Randi Jiménez MD POINT OF CARE TEST ENTER/EDIT ORDERABLES Final Result * (ABNORMAL) POCT Glucose (03/21/2024 12:35 PM EST) Only the most recent of5 resultswithin the time period is included. Glucose Blood, POC 223(A) 60 - 200 mg/dL Comment:r QC Media Lot # [id number] Lot# Expiration Date 230 Blood Capillary blood specimen / Unknown 03/21/2024 12:35 PM EST us Randi Jiménez MD POINT OF CARE TEST ENTER/EDIT ORDERABLES Final Result * CT ORBIT BI WO CONTRAST (03/14/2024 10:05 AM EST) Anatomical Region Laterality Modality Head, Neck Computed Tomogra phy 03/14/2024 10:0 5 AM EST Narrative 03/14/2024 10:07 AM EST ? [facility] ?[address] ?[place] [address] ? CT Scan Report ? Signed ? Patient: Anderson,Raji ?MR#: [id number] ? : 1985 ?Acct:[id number] ? Age/Sex: 38 / M ?ADM Date: 03/14/24 ? Loc: HO.CT ? Attending Dr: Christian Shelton MD ? Ordering Physician: Christian Shelton MD ?? Date of Service: 03/14/24 ?? Procedure(s): CT orbit BI wo IV con ?? Accession Number(s): [id number] ? cc: Matilde Calabrese MD; Christian Shelton MD ? Report Number: ?? [id number]: Total DLP = ??121.00 mGy-cm ? CLINICAL [...] 03/14/246 ? DD/ ? TD/TT: 03/14/245 ? [employer] Representatives: ? Procedure Note Donotuseinterpreter, Image - 03/14/[address] [address] [address] Scan Report Signed Patient: Cedrick Anderson#: [id number] : 1985Acct:[id number] Age/Sex: 38 / MADM Date: 03/14/24 Loc: HO.CT Attending Dr: Christian Shelton MD Ordering Physician: Christian Shelton MD Date of Service: 03/14/24 Procedure(s): CT orbit BI wo IV con Accession Number(s): [id number] cc: Matilde Calabrese MD; Christian Shelton MD Report Number: [id number]: Total DLP = 121.00 mGy-cm CLINICAL HISTORY: [...] OV> 03/14/24 1006 DD/ 1005 TD/TT: 03/14/24 100 [facility] Representatives: us Christian Fuchs MD IMG CT PROCEDURES Fin al Result * CT Head w/o Contrast (03/14/2024 10:02 AM EST) Anatomical Region Laterality Modality Head, Neck Computed Tomogra phy 03/14/2024 10:0 2 AM EST Narrative 03/14/2024 10:04 AM EST ? [facility] ?[address] ?[place] [address] ? CT Scan Report ? Signed ? Patient: Anderson,Raji ?MR#: [id number] ? : 1985 ?Acct:[id number] ? Age/Sex: 38 / M ?ADM Date: 03/14/24 ? Loc: HO.CT ? Attending Dr: Christian Shelton MD ? Ordering Physician: Christian Shelton MD ?? Date of Service: 03/14/24 ?? Procedure(s): CT head/brain wo IV con ?? Accession Number(s): [id number] ? cc: Matilde Calabrese MD; Christian Shelton MD ? Report Number: ?? [id number]: Total DLP = 1059.00 mGy-cm ? CLINICAL [...] DD/ 1002 ? TD/TT: 03/14/24 1002 ? [facility] Representatives: ? Procedure Note Salima Villanueva - 03/14/[address] [address] [address] Scan Report Signed Patient: Cedrick Anderson#: [id number] : 1985Acct:[id number] Age/Sex: 38 / MADM Date: 03/14/24 Loc: HO.CT Attending Dr: Christian Shelton MD Ordering Physician: Christian Shelton MD Date of Service: 03/14/24 Procedure(s): CT head/brain wo IV con Accession Number(s): [id number] cc: Matilde Calabrese MD; Christian Shelton MD Report Number: [id number]: Total DLP = 1059.00 mGy-cm CLINICAL HISTORY: [...] 03/14/24 1004 DD/ 1002 TD/TT: 03/14/24 1002 [facility] Representatives: us Christian Fuchs MD IMG CT PROCEDURES Fin al Result * Fundus Photos - OU - Both Eyes (03/12/2024 3:45 PM EST) Miriam IrelandchelsieAnisha, OD - 03/13/2024 12:30 PM EST FUNDUS [...] 360 Plan: RTC 3 months for f/u us Anisha Gresham OD OPHTH PHOTOGRAPHY Final Result * (ABNORMAL) CBC auto differential (03/12/2024 2:58 PM EST) Only the most recent of2 resultswithin the time period is included. White Blood Count 9.5 4.8 - 10.8 X10*3/uL [facility] Red Blood Count 4.66 4.60 - 5.80 X10*6/uL [facility] Hemoglobin 13.9(L) 14.0 - 18.0 g/dl [facility] Hematocrit 40.0(L) 42.0 - 52.0 % [facility] Mean Corpuscular Volume 85.8 80.0 - 98.0 fL [facility] Mean Corpuscular Hemoglobin 29.8 27.0 - 33.0 pg [facility] Mean Corpuscular HGB Conc 34.8 31.0 - 36.0 g/dl [facility] Red Cell Distribution Width 12.3 11.0 - 16.0 % [facility] Platelet Count 326 160 - 400 X10*3/uL [facility] Mean Platelet Volume 10.4 9.4 - 12.4 fL [facility] Neutrophils Percent Auto 58.0 45 - 73 % [facility] Imm Gran Pct Auto 0.3 0.0 - 0.4 % [facility] Lymphocytes Percent Auto 30.5 20 - 40 % [facility] Monocytes Percent Auto 6.6 2 - 11 % [facility] Eosinophils Percent Auto 3.4 0 - 4 % [facility] Basophils Percent Auto 1.2 0 - 2 % [facility] NRBC Pct Auto 0.0 0.0 - 0.2 /100WBC [facility] Neutrophils Absolute Auto 5.5 2.0 - 8.3 x10*3/uL [facility] Imm Gran Abs Auto 0.03 0.00 - 0.03 X10*3/uL [facility] Lymphocytes Absolute Auto 2.9 1.2 - 4.9 X10*3/uL [facility] Monocytes Absolute Auto 0.6 0.1 - 1.2 X10*3/uL [facility] Eosinophils Absolute Auto 0.3 0.0 - 0.4 X10*3/uL [facility] Basophils Absolute Auto 0.1 0.0 - 0.2 X10*3/uL [facility] NRBC Abs Auto 0.000 0.0 - 0.012 X10*3/uL [facility] Blood Venous blood specimen / Unknown 03/12/2024 2:58 PM EST 03/12/2024 4:20 PM EST Christian Fuchs MD LAB BLOOD ORDERABLES Final Result Performing Organization Address City/[facility]/ZIP Co de Phone Number [facility] [address] [place] [phone] * (ABNORMAL) Sed Rate by Modified Reganren (03/12/2024 2:58 PM EST) Erythrocyte Sedimentation Rate 34(H) 0 - 15 MM/HR [facility] Comment:Patients with polycy themia and many hemoglobin abnormalitiesmay have depressed sed rates whereas patients with anemiamay have elevated sed rates. Blood Venous blood specimen / Unknown 03/12/2024 2:58 PM EST 03/12/2024 4:20 PM EST Christian Fuchs MD LAB BLOOD ORDERABLES Final Result Performing Organization Address City/[facility]/ZIP Co de Phone Number [facility] [address] [place] [phone] * (ABNORMAL) Basic Metabolic Panel (03/12/2024 2:58 PM EST) Only the most recent of2 resultswithin the time period is included. Sodium 135 135 - 145 mmol/L [facility] Potassium 4.3 3.3 - 5.1 mmol/L [facility] Chloride 105 96 - 108 mmol/L [facility] Carbon Dioxide 25 22 - 29 mmol/L [facility] Anion Gap 9(L) 12 - 20 [facility] Urea Nitrogen (BUN) 13 9 - 16 mg/dL [facility] Creatinine, Serum 0.93 0.5 - 1.4 mg/dL [facility] Estimated Glomerular Filt Rate >60 [facility] Comment:Chronic Kidney Disea se: Estimated GFR < 60 mL/min/1.21p9Sslvep Kidney Disease: Estimated GFR < 15 mL/min/1.73m2 Glucose 227(H) 60 - 115 mg/dL [facility] Calcium 9.6 8.4 - 10.2 mg/dL [facility] Blood Venous blood specimen / Unknown 03/12/2024 2:58 PM EST 03/12/2024 4:20 PM EST us Christian Fuchs MD LAB BLOOD ORDERABLES Final Result [facility] [address] [place] [address] [phone] * XR Foot 3+ Views Right (03/03/2024 10:49 AM EST) Anatomical Region Laterality Modality Lower Extremities, Foot Right Radiogra phic Imaging 03/03/2024 10:4 9 AM EST Narrative 03/03/2024 11:09 AM EST ?[facility] ?[address] ?[place] [address] ?XRay Report ? Signed ? Patient: Anderson,Raji ?MR#: [id number] ? : 1985 ?Acct:[id number] ? Age/Sex: 38 / M ?ADM Date: 01/13/25 ? Loc: HO.HHCX ? Attending Dr: Charity Luna DO ? Ordering Physician: Charity Luna DO ?? Date of Service: 03/03/24 ?? Procedure(s): XR foot RT min 3V ?? Accession Number(s): [id number] ? cc: Charity Luna DO ? EXAMINATION: [...] ??Mesfin Olivo MD ??03/03/2024 11:06 AM EST ? Dictated By: ?Mesfin Olivo MD ? Signed By: ?<Electronically signed by Mesfin Olivo MD in OV> ?03/03/24 1106 ? DD/ 1049 ? TD/TT: 03/03/24 1058 ? [employer] Representatives: ? Procedure Note Rich, Image - 03/03/2024 [place] [address] XRay Report Signed Patient: Cedrick Anderson#: [id number] : 1985Acct:[id number] Age/Sex: 38 / MADM Date: 03/03/24 Loc: HO.HHCX Attending Dr: Charity Luna DO Ordering Physician: Charity Luna DO Date of Service: 03/03/24 Procedure(s): XR foot RT min 3V Accession Number(s): [id number] cc: Charity Luna DO EXAMINATION: XR FOOT [...] Mesfin Olivo MD 03/03/2024 11:06 AM EST RP Dictated By: Mesfin Olivo MD Signed By: <Electronically signed by Mesfin Olivo MD in OV> 03/03/24 1106 DD/ 1049 TD/TT: 03/03/24 1058 [employer] Representatives: Charity Luna DO IMG XR PROCEDURES Edited Res ult - Final * POCT urinalysis dipstick manually resulted (02/19/2024 [...] Media Lot # [id number] Lot# Expiration Date 475 Urine 02/19/2024 11:2 2 AM EST Christian Fuchs MD POINT OF CARE TEST EN TER/EDIT ORDERABLES Final Result * Albumin, Random Urine W/Creatinine (02/18/2024 11:22 AM EST) Creatinine, Urine 209.68 mg/dL [facility] Microalbumin Urine 52.0 mg/L [facility] Microalbum Creatinine Ratio Ur 24.7 <30 ug/mg cr [facility] Comment:Albumin/Creatinine R atio Reference Ranges: Normal: < 30 ug/mg creatinine Microalbuminuria: 30 - 300 ug/mg creatinineClinical Albuminuria: > 300 ug/mg creatinine 02/18/2024 11:2 2 AM EST 02/18/2024 1:18 PM EST us Matilde Hudson MD LAB URINE ORDERABLES Final Result Performing Organization Address [facility] de Phone Number [facility] [address] [place] [phone] * Proteinase-3 Antibody (02/18/2024 9:45 AM EST) Proteinase-3 Antibody <1.0 [facility] Comment:Value Interpretation ----- <1.0 No Antibody Detected > or = 1.0 Antibody DetectedAutoantibodies to proteinase-3 (VA-3) are accepted ascharacteristic for granulomatosis with polyangiitis(GPA, Brianna's), and are detectable in 95% of thehistologically proven cases. The cytoplasmic IFApattern, (c-ANCA), is based largely on autoantibody toPR-3 which serves as the primary antigen.These autoantibodies are present in active disease.THIS TEST WAS PERFORMED AT:[facility] [address] [phone] OWEN MD 02/18/2024 9:45 AM EST 02/18/2024 11:11 AM EST us Generic External Data Provider LAB BLOOD ORDERAB LES Final Result Performing Organization Address [facility] de Phone Number [facility] [address] [place] [phone] * Myeloperoxidase Antibody (MPO) (02/18/2024 9:45 AM EST) Myeloperoxidase Antibody <1.0 [facility] Comment:Value Interpretation ----- <1.0 No Antibody Detected > or = 1.0 Antibody DetectedAutoantibodies to myeloperoxidase (MPO) are commonlyassociated with the following small-vesselvasculitides: microscopic polyangiitis,polyarteritis nodosa, Churg-Rafi syndrome,necrotizing and crescentic glomerulonephritis andoccasionally granulomatosis with polyangiitis(GPA, Brianna's). The perinuclear IFA pattern,(p-ANCA) is based largely on autoantibody tomyeloperoxidase which serves as the primary antigen.These autoantibodies are present in active disease.THIS TEST WAS PERFORMED AT:[facility] [address] [phone] OWEN MD 02/18/2024 9:45 AM EST 02/18/2024 11:11 AM EST Generic External Data Provider LAB BLOOD ORDERAB LES Final Result Performing Organization Address [facility] Number [facility] [address] [place] [phone] * Phospholipase A2 Receptor (PLA2R) Antibody Panel (02/18/2024 9:45 AM EST) Phospholipase A2 Receptor (PLA2R) Ab, PRACHI <4 RU/mL [facility] Comment:Reference Range: <14 : NEGATIVE 14-19: BORDERLINE >19: POSITIVE Phospholipase A2 Receptor (PLA2R) Ab, IFA NEGATIVE NEGATIVE [facility] Comment:THIS TEST WAS PERFOR MED AT:[facility]/[place] [id number] [facility] [place] [address]CFXUMGRECIA THORPE MD,PHD,LINDA 02/18/2024 9:45 AM EST 02/18/2024 11:11 AM EST Generic External Data Provider LAB BLOOD ORDERAB LES Final Result Performing Organization Address [facility] de Phone Number [facility] [address] [place] [phone] * Hepatitis C Antibody with Reflex to HCV, RNA, Quantitative, Real-Time PCR (02/18/2024 9:45 AM EST) Hepatitis C Antibody Nonreactive Nonreactive [facility] Comment:Antibodies to HCV no t detected; does not exclude early acuteHCV infection. 02/18/2024 9:45 AM EST 02/18/2024 11:12 AM EST Generic External Data Provider LAB BLOOD ORDERAB LES Final Result Performing Organization Address [facility] Co de Phone Number [facility] [address] [place] [phone] * Glomerular Basement Membrane Antibody (IgG) (02/18/2024 9:45 AM EST) Glomerular Basement Memebrane Antibody (IgG) <1.0 AI [facility] Comment:Value Interpretation ----- <1.0 No Antibody Detected > or = 1.0 Antibody DetectedTHIS TEST WAS PERFORMED AT:[facility] [address] [phone] OWEN MD 02/18/2024 9:45 AM EST 02/18/2024 11:11 AM EST Generic External Data Provider LAB BLOOD ORDERAB LES Final Result Performing Organization Address [facility] Number [facility] [address] [place] [address] [phone] * DNA (ds) Antibody (02/18/2024 9:45 AM EST) Anti DNA DS Antibody 1 IU/mL [facility] Comment:IU/mL Interpretation < or = 4 Negative 5-9 Indeterminate > or = 10 PositiveTHIS TEST WAS PERFORMED AT:[employer] [employer] [place] [phone] OWEN MD 02/18/2024 9:45 AM EST 02/18/2024 11:11 AM EST Generic External Data Provider LAB BLOOD ORDERAB LES Final Result Performing Organization Address [facility]/ZIP Co de Phone Number [facility] [address] [place] [phone] * Hepatitis B surface antigen, EIA (02/18/2024 9:45 AM EST) Hepatitis B Surface Ag Negative Negative [facility] 02/18/2024 9:45 AM EST 02/18/2024 11:12 AM EST us Generic External Data Provider LAB BLOOD ORDERAB LES Final Result Performing Organization Address [facility] Co de Phone Number [facility] [address] [place] [phone] * Hepatitis B Core Antibody, Total (02/18/2024 9:45 AM EST) Hepatitis B Core Antibody Nonreactive Nonreactive [facility] 02/18/2024 9:45 AM EST 02/18/2024 11:12 AM EST Generic External Data Provider LAB BLOOD ORDERAB LES Final Result Performing Organization Address [facility] de Phone Number [facility] [address] [place] [phone] * (ABNORMAL) Immunofixation, Serum (02/18/2024 9:45 AM EST) IMMUNOGLOBULIN G 1358 600 - 1640 mg/dL [facility] IMMUNOGLOBULIN A 518(A) 47 - 310 mg/dL [facility] Immunoglobulin M 57 50 - 300 mg/dL [facility] Comment:THIS TEST WAS PERFOR MED AT:[facility] [employer] [place] [phone] OWEN MD Immunofixation Result SEE NOTE [facility] Comment:Normal pattern. No m onoclonal proteins detected. 02/18/2024 9:45 AM EST 02/18/2024 11:11 AM EST us Generic External Data Provider LAB BLOOD ORDERAB LES Final Result Performing Organization Address [facility] de Phone Number [facility] [address] [place] [phone] * Complement Component C3c (02/18/2024 9:45 AM EST) Complement C3 166 82 - 185 mg/dL [facility] Comment:THIS TEST WAS PERFOR MED AT:[facility] [place] [phone] OWEN MD 02/18/2024 9:45 AM EST 02/18/2024 11:11 AM EST Generic External Data Provider LAB BLOOD ORDERAB LES Final Result Performing Organization Address [facility] Number [facility] [address] [place] [phone] * Complement Component C4c (02/18/2024 9:45 AM EST) Complement C4 20 15 - 53 mg/dL [facility] Comment:THIS TEST WAS PERFOR MED AT:[facility] [employer] [place] [phone] OWEN MD 02/18/2024 9:45 AM EST 02/18/2024 11:11 AM EST Generic External Data Provider LAB BLOOD ORDERAB LES Final Result Performing Organization Address [facility] de Phone Number [facility] [address] [place] [phone] * BUN (Blood Urea Nitrogen) (02/18/2024 9:45 AM EST) Urea Nitrogen (BUN) 14 9 - 16 mg/dL [facility] 02/18/2024 9:45 AM EST 02/18/2024 11:12 AM EST us Generic External Data Provider LAB BLOOD ORDERAB LES Final Result Performing Organization Address [facility]/ZIP Co de Phone Number [facility] [address] [place] [phone] * Calcium (02/18/2024 9:45 AM EST) Calcium 9.8 8.4 - 10.2 mg/dL [facility] 02/18/2024 9:45 AM EST 02/18/2024 11:12 AM EST us Generic External Data Provider LAB BLOOD ORDERAB LES Final Result Performing Organization Address [facility] Co ut Phone Number [facility] [address] [place] [phone] * (ABNORMAL) Hepatic Function Panel (02/18/2024 9:45 AM EST) [facility] Bilirubin, Total 0.4 0.0 - 1.0 mg/dL [facility] Bilirubin, Direct 0.1 0.0 - 0.5 mg/dL [facility] Aspartate Amino Transferase 25 5 - 37 U/L [facility] Alanine Aminotransferase 39 0 - 40 U/L [facility] Total Protein 8.7(H) 6.5 - 8.0 g/dL [facility] Albumin Level 4.8 3.5 - 5.0 g/dL [facility] Alkaline Phosphatase 113 39 - 117 U/L [facility] 02/18/2024 9:45 AM EST 02/18/2024 11:12 AM EST us Matilde Hudson MD LAB BLOOD ORDERABLES Final Result Performing Organization Address [facility] Co de Phone Number [facility] [address] [place] [phone] * (ABNORMAL) Lipid Panel, Standard (02/18/2024 9:45 AM EST) Triglycerides 319(H) <150 mg/dL [facility] Comment:Slight Lipemia.Aury able Triglyceride: less than 150 mg/dLBorderline High Triglyceride 150-199 mg/dLHigh Triglyceride: 200-499 mg/dLVery High Triglyceride: greater than or equal to 5OO mg/dL Cholesterol 176 <200 mg/dL [facility] Comment:Desirable Cholestero l: less than 200 mg/dLBorderline High Cholesterol: 200-239 mg/dLHigh Cholesterol: greater than 239 mg/dL LDL Cholesterol Calculated 75 <100 mg/dL [facility] Comment:Desirable LDL: less than 100 mg/dLNear Optimal/Above Optimal LDL: 110- 129 mg/dLBorderline High LDL: 130-159 mg/dLHigh LDL: 160-189 mg/dLVery High LDL: greater than or equal to 190 mg/dL HDL Cholesterol 38(L) >40 mg/dL [facility] Comment:Desirable HDL: great er than 40 mg/dL Note: This HDL assay may give artificially low results in patients with liver disease. 02/18/2024 9:45 AM EST 02/18/2024 11:12 AM EST Matilde Hudson MD LAB BLOOD ORDERABLES Final Result [facility] [address] [place] [phone] * CT Abdomen Pelvis w/o Contrast (02/06/2024 12:43 PM EST) Anatomical Region Laterality Modality Body, Pelvis, Abdomen Computed T omography Historical Provider IMG CT PROCEDURES Final R esult * CT SOFT TISSUE NECK W CONTRAST (01/31/2024 9:58 AM EST) Anatomical Region Laterality Modality Computed Tomogra phy Historical Provider IMJennifer CT PROCEDURES Final R esult * C-reactive Protein (01/08/2024 2:03 PM EST) C Reactive Protein 0.18 < or = 0.50 mg/dL [facility] Blood Venous blood specimen / Unknown 01/08/2024 2:03 PM EST 01/08/2024 4:07 PM EST us Erin Bueno MD LAB BLOOD ORDERABLES Final Result [facility] [address] [place] [phone] from Last 3 Months Insurance C3 Care Teams Waste Reduction Coordinator Relationship Specialty Start Date End Date Matilde Calabrese MD [address] [place] [address] PCP - General Internal Medicine 11/23/23 Kourtney Su, Samara [address] [place] [phone] Pharmacist Internal Medicine 12/05/23 Cecily Pinedo RN [address] [place] [phone] Interstate PlannerAml Analyst 01/08/24 [facility] 01/09/24
--- OUTSIDE RECORDS SUMMARY | 2024-03-28 12:59 | XMS_ITS | Encounter Summary ---
Author Organization [employer] Address [address] [facility] [address] [place] [address] Care Team Providers Care Precipitation Equipment Tender Name Role Phone Matilde Calabrese MD Primary Care Provide r Kourtney Su PharmD Unavailable [phone] Cecily Pinedo RN Unavailable [phone] Reason for Visit * Reason Comments Care Coordination SDOH Encounter Details Date Type Department Care Team (Latest Contact Info) Description 03/19/2024 Patient Outreach [facility] [address] [place] [address] Matilde Calabrese MD [address] [place] [address] Care Coordination (SDOH) Social History Tobacco Use Types Packs/Day Years [...] is your housing situation today? I have sadny amaro 04/27/[address] you [...] encounter Progress Notes * Yue Eubanks - 03/19/2024 1:03 PM EST CHW Yue Eubanks placed outbound call to patient to follow up on SDOH needs. Patient's name, and address confirmed. Patient states is doing well. Patient stated he received the long-term resources I mailed out to him and is going to look into them. Patient [facility] and during that time he will stop by our office to pick up attendant the form for utility shut off prevention. No other SDOH needed at this time. No further questions or concerns. CHW reinforced direct contact information or CM for any additional questions or concerns and extended clinic hours on Mondays and Wednesdays, and Walk-In Urgent Care Located in [facility] of [facility]. Patient provided with after-hours line for [facility], , which offer nighttime triage service and option to transfer to intelligence applications [facility]. Patient verbalizes understanding, and able to repeat back to underwriter mortgage loan. A follow up call will be placed within 10 days, patient agrees with plan. documented in this encounter Plan of Treatment Upcoming Encounters Date Type Department Care Team (Late st Contact Info) Description 04/09/2024 10:30 AM EST Medication Management [facility] [address] [place] [phone] Kourtney Su PharmD [address] [place] [phone] 05/06/2024 10:00 AM EDT Office Visit [facility] [address] [place] [phone] Matilde Calabrese MD [address] [place] [phone] 06/03/2024 11:30 AM EDT Office Visit [facility] [address] [place], [place] [phone] Rodger Cole MD [address] [place], [place] [phone] documented as of this encounter Visit Diagnoses Not on filedocumented in this encounter Additional Health Concerns Assessment Noted Time PHQ-9 Depression Total Score: 18 024 9:55 AM EST documented as of this encounter Care Teams Precipitation Equipment Tender Relationship Specialty Start Date End Date Matilde Calabrese MD [address] [place] [phone] PCP - General Internal Medicine 11/23/23 Kourtney Su, EmmaD [address] [place] [phone] Pharmacist Internal Medicine 12/05/23 Cecily Pinedo RN [address] [place] [address] [phone] Director Of Email MarketingScript Writer 01/08/24 [facility] 01/09/24 documented as of this encounter
--- OUTSIDE RECORDS SUMMARY | 2024-03-28 12:59 | XMS_ITS | Encounter Summary ---
Author Organization [employer] Address [address] [place] [address] Care Team Providers Care Balloon Maker Name Role Phone Matilde Calabrese MD Primary Care Provide r Reason for Visit * Reason Comments Follow-up Diabetic foot exam Encounter Details Date Type Department Care Team ([facility] st Contact Info) Description 03/11/2024 8:45 AM EST Office Visit Orthopedic Surgery - [place] [address] [phone] Elias Agee, DPM [address] [address] Cellulitis of left foot (Primary Dx); Dermatophytosis [...] limb documented in this encounter Care Teams Balloon Maker Relationship Specialty Start Date End Date Matilde Calabrese MD [address] [place] [phone] PCP - General 11/22/23 documented as of this encounter
--- OUTSIDE RECORDS SUMMARY | 2024-03-28 12:59 | XMS_ITS | Encounter Summary ---
Author Organization [employer] Address [address] [facility] [address] [place] [address] Care Team Providers Care Diesel Pile Hammer Operator Name Role Phone Matilde Calabrese MD Primary Care Provide r Kourtney Su PharmD Unavailable [phone] Cecily Pinedo RN Unavailable Reason for Visit * Reason Onset Date Comments Results 03/21/2024 Encounter Details Date Type Department Care Team (Late st Contact Info) Description 03/21/2024 Telephone [facility]INE [address] [place] [address] Ileana Jones RN Results Social History Tobacco Use Types Packs/Day Years [...] Telephone Encounter - Ileana Jones RN - 03/21/2024 9:34 AM EST TC placed to pt in regards to CT results below as stated by Dr. Little related to office visit on 03/11/2024. Pt advised to continue taking antibiotics prescribed by the ED on 03/16/2024 and attend EDF/U appt on 03/21 with Jacy Jiménez. Pt agreeable to this information and had no further questions or concerns. ----- Message from Christian Fuchs MD sent at 03/20/2024 4:08 PM EST ----- Please contact patient to let him know his CT does not necessarily explain his complaints, but out of an abundance of caution is a good idea to take the antibiotics he was prescibed at [facility]. Please reinforce the importance of keeping his appointment for tomorrow the . He might need an MRI if symptoms do not improve documented in this encounter Plan of Treatment Upcoming Encounters Date Type Department Care Team (Late st Contact Info) Description 04/09/2024 10:30 AM EST Medication Management [facility] MED[facility]INE [address] [place] [address] Kourtney Su PharmD [address] [place] [address] 05/06/2024 10:00 AM EDT Office Visit [facility] [address] [place] [address] Matilde Calabrese MD [address] [place] [address] 06/03/2024 11:30 AM EDT Office Visit [facility] [address] [place] [address] Rodger Cole MD 505 [place], [place] [phone] documented as of this encounter Visit Diagnoses Not on filedocumented in this encounter Additional Health Concerns Assessment Noted Time PHQ-9 Depression Total Score: 18 024 9:55 AM EST documented as of this encounter Care Teams Diesel Pile Hammer Operator Relationship Specialty Start Date End Date Matilde Calabrese MD [address] [place] [address] PCP - General Internal Medicine 11/23/23 Kourtney Su, PharmD [address] [place] [address] Pharmacist Internal Medicine 12/05/23 Cecily Pinedo RN [address] [place] [phone] Animal Attendants And TrainersCone Runner 01/08/24 [facility] 01/09/24 documented as of this encounter
--- OUTSIDE RECORDS SUMMARY | 2024-03-28 12:59 | XMS_ITS | Encounter Summary ---
Author Organization [employer] Address [address] [facility] [address] 7[address] [place] [address] Care Team Providers Care Manager Agriculture Name Role Phone Matilde Calabrese MD Primary Care Provide r Kourtney Su PharmD Unavailable [phone] Cecily Pinedo RN Unavailable [phone] Encounter Details Date Type Department Care Team (Late st Contact Info) Description 03/19/2024 Telephone [facility] MEDICINE 230 [place] [address] Cecily Pinedo, RN 505 [place] [address] Social History Tobacco Use Types Packs/Day Years [...] Encounter - Cecily Pinedo RN - 03/19/2024 3:28 PM EST CM called ENT. Informed patient was seen on 02/27 and cleared for hearing aids. Patient advised that his insurance would not cover the hearing aids. CM informed patient was given a list of providers/facilities that may cover cost. Patient instructed to call those office to inquire. documented in this encounter Plan of Treatment Upcoming Encounters Date Type Department Care Team (Late st Contact Info) Description 04/09/2024 10:30 AM EST Medication Management [facility] MED[facility]INE [address] [place] [address] Kourtney Su, PharmD [address] [place] [address] 05/06/2024 10:00 AM EDT Office Visit [facility] [address] [place] [address] Matilde Calabrese MD 230 [place] [address] 06/03/2024 11:30 AM EDT Office Visit [facility] [address] [place] [address] Rodger Cole MD 505 [place] [address] documented as of this encounter Visit Diagnoses Not on filedocumented in this encounter Additional Health Concerns Assessment Noted Time PHQ-9 Depression Total Score: 18 024 9:55 AM EST documented as of this encounter Care Teams Manager Agriculture Relationship Specialty Start Date End Date Matilde Calabrese MD 230 [place] [address] PCP - General Internal Medicine 11/23/23 Kourtney Su PharmD [address] [place] [address] Pharmacist Internal Medicine 12/05/23 Cecily Pinedo, ROSA [address] [place] [address] Portable Feed Mill OperatorDental Floss Packer 01/08/24 [facility] 01/09/24 documented as of this encounter
--- OUTSIDE RECORDS SUMMARY | 2024-03-28 12:59 | XMS_ITS | Encounter Summary ---
Author Organization [employer] Address [address] [facility] [address] 7[address] [place] [address] Care Team Providers Care Shot Blast Equipment Operator Name Role Phone Matilde Calabrese MD Primary Care Provide r Kourtney Su PharmD Unavailable [phone] Cecily Pinedo RN Unavailable [phone] Encounter Details Date Type Department Care Team (Late st Contact Info) Description 03/21/2024 12:30 PM EST Office Visit [facility] MEDICINE 230 [place], [place] [phone] Randi Jiménez MD [address] [place], [place] [phone] Ocular pain, right eye (Primary Dx); Type 2 diabetes mellitus with hyperglycemia, with long-term current use of insulin (CMS/HCC); Dietary counseling; Exercise counseling; Class 3 severe obesity with serious comorbidity and body mass index (BMI) of 45.0 to 49.9 in adult, unspecified obesity type (CMS/HCC); Primary hypertension; Type 2 diabetes mellitus with hyperglycemia, without long-term current use of insulin (CMS/HCC); Acquired hypothyroidism; Hypertension, unspecified type; Right chronic serous otitis media Social History Tobacco Use Types Packs/Day Years [...] 18 03/21/2024 12:27 PM EST Oxygen Saturation - - Inhaled Oxygen Concentration - - Weight 129 kg (284 lb 6.4 oz) 03/21/2024 12:27 P M EST Height 162.6 cm (5' 4 ) 03/21/2024 12:27 PM EST Body Mass Index 48.82 03/21/2024 12:27 PM EST documented in this encounter Progress Notes * Randi Jiménez MD - 03/21/2024 12:30 PM EST SUBJECTIVE: Raji Anderson is a 38 y.o. year old male who presents for acute visit. He was in the ER 03/16/24 for RAYMOND/ear pain. Acute Concerns: Today his A1C 9.2 and glucose 223. He complains that he has ongoing swelling around his RIGHT eye. He is currently being treated with Amoxicillin for L foot paronychia. He also received Levofloxacin from the ER, presumably to treat periorbital cellulitis. In general his swelling and pain have decreased on the right side of his face. Has regular ENT and audiology. He needs to have refills of DM 2 meds (Trulicity 3mg and Tresibia 18 units nightly). He is seeing Kourtney Su, pharmacist to help with DM2 mgmt and insulin titration. He follows his BP at home, on Amlodipine 10mg, Carvedilol 6.25mg, and Lisinopril 20mg. Hypothyroidism Lab Results Component Value Date TSH 23.52 (H) 03/20/2023 TSH 10.28 (H) 07/25/2022 Saw optometry for acute visit 03/12/24, Dr. Gresham Diagnoses and all orders for this visit: [...] with PCP - Patient was referred to [facility] by PCP for routine care - appt scheduled for 05/20/24. Provided patient the option to continue care at [facility] or be seen by external OD. Patient opts to continue here. - RTC in 3 months for diabetic retinopathy f/u Intermittent exotropia, alternating - Likely longstanding. Patient denies history of diplopia. - Cranial nerve palsy ruled out due to comitancy, alternating and intermittent nature Latest Reference Range & Units 03/12/24 14:58 Glucose 60 - 115 mg/dL 227 (H) Urea Nitrogen (BUN) 9 - 16 mg/dL 13 Creatinine, Serum 0.5 - 1.4 mg/dL 0.93 Sodium 135 - 145 mmol/L 135 Potassium 3.3 - 5.1 mmol/L 4.3 Chloride 96 - 108 mmol/L 105 Carbon Dioxide 22 - 29 mmol/L 25 Calcium 8.4 - 10.2 mg/dL 9.6 Anion Gap 12 - 20 9 (L) Red Blood Count 4.60 - 5.80 X10*6/uL 4.66 Hemoglobin 14.0 - 18.0 g/dl 13.9 (L) Hematocrit 42.0 - 52.0 % 40.0 (L) Mean Corpuscular Volume 80.0 - 98.0 fL 85.8 Mean Corpuscular Hemoglobin 27.0 - 33.0 pg 29.8 Mean Corpuscular HGB Conc 31.0 - 36.0 g/dl 34.8 Red Cell Distribution Width 11.0 - 16.0 % 12.3 Platelet Count 160 - 400 X10*3/uL 326 Eosinophils Percent Auto 0 - 4 % 3.4 Lymphocytes Absolute Auto 1.2 - 4.9 X10*3/uL 2.9 Basophils Absolute Auto 0.0 - 0.2 X10*3/uL 0.1 Monocytes Absolute Auto 0.1 - 1.2 X10*3/uL 0.6 Neutrophils Absolute Auto 2.0 - 8.3 x10*3/uL 5.5 Neutrophils Percent Auto 45 - 73 % 58.0 Basophils Percent Auto 0 - 2 % 1.2 Eosinophils Absolute Auto 0.0 - 0.4 X10*3/uL 0.3 Lymphocytes Percent Auto 20 - 40 % 30.5 Monocytes Percent Auto 2 - 11 % 6.6 Imm Gran Abs Auto 0.00 - 0.03 X10*3/uL 0.03 Imm Gran Pct Auto 0.0 - 0.4 % 0.3 Erythrocyte Sedimentation Rate 0 - 15 MM/HR 34 (H) Estimated Glomerular Filt Rate >60 Mean Platelet Volume 9.4 - 12.4 fL 10.4 NRBC Abs Auto 0.0 - 0.012 X10*3/uL 0.000 NRBC Pct Auto 0.0 - 0.2 /100WBC 0.0 White Blood Count 4.8 - 10.8 X10*3/uL 9.5 Patient Active Problem List Diagnosis Type 2 diabetes mellitus with hyperglycemia, with long-term current use of insulin ([facility]/HCC) Obstructive sleep apnea syndrome Morbid obesity (CMS/HCC) Mood disorder (CMS/HCC) Gout Flat foot Essential (primary) hypertension Hidradenitis suppurativa of multiple sites Acute ankle pain Paraspinal muscle spasm JASBIR (acute kidney injury) ([facility]) Acquired hypothyroidism Hospital discharge follow-up Cellulitis Chronic right shoulder pain Mixed anxiety and depressive disorder Nail disease Diabetic polyneuropathy associated with type 2 diabetes mellitus ([facility]/HCC) Bilateral wrist pain LLQ abdominal pain Abscess Hypertension Kidney disease Ocular pain, right eye Acute intractable headache History reviewed. No pertinent surgical history. No family history on file. Social History Social History Narrative Not on file Review of Systems Constitutional: Negative. HENT: Positive for congestion and ear pain. Negative for sinus pressure and sinus pain. OBJECTIVE: Vitals: 03/21/24 1227 BP: (!) 146/104 BP Location: Left arm Patient Position: Sitting BP Cuff Size: Large adult Pulse: 96 Resp: 18 Temp: 96.3 ??F (35.7 ??C) TempSrc: Oral Weight: 284 lb 6.4 oz (129 kg) Height: 5' 4 (1.626 m) Physical Exam Vitals and nursing note reviewed. Constitutional: Appearance: Normal appearance. He is normal weight. HENT: Head: Normocephalic and atraumatic. Right Ear: Ear canal and external ear normal. Tympanic membrane is scarred and erythematous. Tympanic membrane has decreased mobility. Left Ear: Tympanic membrane, ear canal and external ear normal. Nose: Nose normal. Mouth/Throat: Mouth: Mucous membranes are moist. Pharynx: Oropharynx is clear. Cardiovascular: Rate and Rhythm: Normal rate and regular rhythm. Pulses: Normal pulses. Heart sounds: Normal heart sounds. Pulmonary: Effort: Pulmonary effort is normal. Breath sounds: Normal breath sounds. Musculoskeletal: Cervical back: Normal range of motion and neck supple. Skin: General: Skin is warm and dry. Capillary Refill: Capillary refill takes less than 2 seconds. Neurological: General: No focal deficit present. Mental Status: He is alert and oriented to person, place, and time. Psychiatric: Mood and Affect: Mood normal. Behavior: Behavior normal. ASSESSMENT/PLAN Problem List Items Addressed This Visit Type 2 diabetes mellitus with hyperglycemia, with long-term current use of insulin ([facility]) Relevant Medications atorvastatin (Lipitor) 20 MG tablet Continuous Glucose Sensor (FreeStyle Cherelle 2 Sensor) misc Other Relevant Orders POCT Glucose (Completed) POCT HGB A1C (Completed) Acquired hypothyroidism Relevant Medications levothyroxine (Synthroid) 100 MCG tablet Other Relevant Orders TSH W/Reflex to FT4 Hypertension Relevant Medications amLODIPine (Norvasc) 10 MG tablet lisinopril (Prinivil) 20 MG tablet Ocular pain, right eye - Primary Other Visit Diagnoses Dietary counseling Exercise counseling Class 3 severe obesity with serious comorbidity and body mass index (BMI) of 45.0 to 49.9 in adult,unspecified obesity type ([facility]) Type 2 diabetes mellitus with hyperglycemia, without long-term current use of insulin ([facility]) Right chronic serous otitis media Relevant Medications fluticasone (Flonase) 50 MCG/ACT nasal spray cefdinir (Omnicef) 300 MG capsule Follow Up: per PCP recall or sooner prn Allergies Allergen Reactions Ibuprofen my dr says not to take it because my kidneys . Other Reaction(s): Renal Impairment But can take indomethacin without problems Iodinated Contrast Media Other Reaction(s): Renal Impairment Current Outpatient Medications: acetaminophen (Tylenol 8 Hour) 650 MG ER tablet, Take 1 tablet (650 mg) by mouth every 8 (eight) hours if needed for mild pain. Do not crush, chew, or split., Disp: 50 tablet, Rfl: 1 amLODIPine (Norvasc) 10 MG tablet, Take 1 tablet by mouth once daily, Disp: 90 tablet, Rfl: 3 kudrhbd-zgpsqxqgapmml-dyktpedp (Excedrin Migraine) 250-250-65 MG tablet, Take 1 tablet by mouth every 6 (six) hours if needed for headaches for up to 10 days., Disp: 30 tablet, Rfl: 0 atorvastatin (Lipitor) 20 MG tablet, Take 1 tablet by mouth once daily, Disp: 90 tablet, Rfl: 3 benzoyl peroxide (Benzac AC) 10 % external [...] twice daily, Disp: 180 tablet, Rfl: 0 cefdinir (Omnicef) 300 MG capsule, Take 1 capsule (300 mg) by mouth 2 times daily for 7 days., Disp: 14 capsule, Rfl: 0 clindamycin (Clindagel) 1 % gel, Apply topically Once per day. Apply to affected areas for HS., Disp: 60 g, Rfl: 2 Continuous Glucose Differential Tester (FreeStyle Cherelle 2 [place]) device, Scan sensor every 8 hours, Disp: 1 each, Rfl: 0 Continuous Glucose Sensor (FreeStyle Cherelle 2 Sensor) [facility] [place], Apply 1 sensor every 14 days, Disp: 2 each, Rfl: 11 docusate sodium (Colace) 100 MG capsule, Take 1 capsule (100 mg) by mouth 2 times daily., Disp: 60 capsule, Rfl: 1 Dulaglutide (Trulicity) 3 MG/0.5ML solution auto-injector, Inject 0.5 mL (3 mg) under the skin 1 (one) time per week., Disp: 2 mL, Rfl: 3 fluticasone (Flonase) 50 MCG/ACT nasal spray, Administer 1-2 sprays into each nostril Once per day.Shake gently. Before first use, prime pump. After use, clean tip and replace cap., Disp: 16 g, Rfl:2 FreeStyle lancets, 1 each by Other route 4 times daily., Disp: 100 each, Rfl: 11 gabapentin (Neurontin) 300 MG capsule, Take 1 capsule (300 mg) by mouth 3 times daily., Disp: 90 capsule, Rfl: 3 glucose 4 g chewable tablet, Use as directed for low blood sugar, Disp: 50 tablet, Rfl: 11 glucose blood (FreeStyle Precision Jefry Test) test strip, Use to test blood sugar 3 times daily, Disp: 100 each, Rfl: 12 insulin degludec (Tresiba FlexTouch) 100 UNIT/ML injection, Inject subcutaneously 18 units once daily, Disp: 15 mL, Rfl: 0 levothyroxine (Synthroid) 100 MCG tablet, Take 1 tablet (100 mcg) by mouth before breakfast., Disp:90 tablet, Rfl: 3 lisinopril (Prinivil) 20 MG tablet, Take 1 tablet (20 mg) by mouth Once per day., Disp: 90 tablet, Rfl: 3 omeprazole OTC (PriLOSEC OTC) 20 MG EC [...] per day., Disp: 527 g, Rfl: 1 UltiCare Alcohol Swabs 70 % pads, Use as directed with insulin administration once daily, Disp: 100each, Rfl: 3 Dominican Translation: pt is bilingual and declines translation documented in this encounter Plan of Treatment Upcoming Encounters Date Type Department Care Team (Late st Contact Info) Description 04/09/2024 10:30 AM EST Medication Management [facility] MEDICINE [address] [place] [address] Kourtney Su, PharmD [address] [place] [address] 05/06/2024 10:00 AM EDT Office Visit [facility] MEDICINE [address] [place] [address] Matilde Calabrese MD [address] [place] [address] 06/03/2024 11:30 AM EDT Office Visit [facility] MED [facility] PEDS [address] [place] [address] Rodger Cole MD [address] [place] [address] Scheduled Orders Name Type Priority Associated Diagnoses Orde r Schedule TSH W/Reflex to FT4 Lab Routine Acquired hypothyroidism Expected: 03/26/2024 (Approximate), Expires: 03/26/2025 documented as of this encounter Procedures Procedure Name Priority Date/Time Associated Diagnosis Comments POCT GLYCATED HEMOGLOBIN, TOTAL Routine 03/21/2024 12:35 PM EST Type 2 diabetes mellitus with hyperglycemia, with long-term current use of insulin ([facility]) POCT GLUCOSE Routine 03/21/2024 12:35 PM EST Type 2 diabetes mellitus with hyperglycemia, with long-term current use of insulin ([facility]) documented in this encounter Results * (ABNORMAL) POCT HGB A1C (03/21/2024 12:35 PM EST) Hemoglobin A1C 9.2(A) 4.0 - 6.0 % QC Media Lot # [id number] Lot# Expiration Date Blood 03/21/2024 12:3 5 PM EST Randi Jiménez MD POINT OF CARE TEST ENTER/EDIT ORDERABLES Final Result * (ABNORMAL) POCT Glucose (03/21/2024 12:35 PM EST) Glucose Blood, POC 223(A) 60 - 200 mg/dL Comment:r QC Media Lot # [id number] Lot# Expiration Date ,025 Blood Capillary blood specimen / Unknown 03/21/2024 12:35 PM EST Randi Jiménez MD POINT OF CARE TEST ENTER/EDIT ORDERABLES Final Result documented in this encounter Visit Diagnoses Diagnosis Ocular pain, right eye- Primary Type 2 diabetes mellitus with hyperglycemia, with long-term current use of insulin ([facility]) Dietary counseling Dietary surveillance and counseling Exercise counseling Class 3 severe obesity with serious comorbidity and body mass index (BMI) of 45.0 to 49.9 in adult, unspecified obesity type ([facility]) Primary hypertension Unspecified essential hypertension Type 2 diabetes mellitus with hyperglycemia, without long-term current use of insulin ([facility]) Acquired hypothyroidism Unspecified hypothyroidism Hypertension, unspecified type Right chronic serous otitis media Simple or unspecified chronic serous otitis media documented in this encounter Additional Health Concerns Assessment Noted Time PHQ-9 Depression Total Score: 18 024 9:55 AM EST documented as of this encounter Care Teams Shot Blast Equipment Operator Relationship Specialty Start Date End Date Matilde Calabrese MD [address] [place] [address] PCP - General Internal Medicine 11/23/23 Kourtney Su PharmD [address] [place] [address] Pharmacist Internal Medicine 12/05/23 Cecily Pinedo RN [address] [place] [address] Mill OperatorCommunity Living Instructor 01/08/24 [facility] 01/09/24 documented as of this encounter
--- OUTSIDE RECORDS SUMMARY | 2024-03-28 12:59 | XMS_ITS | Encounter Summary ---
Author Organization [employer] Address [address] [facility] [address] [place] [address] Care Team Providers Care Supervisor Drapery Hanging Name Role Phone Matilde Calabrese MD Primary Care Provide r Kourtney Su PharmD Unavailable [phone] Cecily Pinedo RN Unavailable [phone] Encounter Details Date Type Department Care [...] Upcoming Encounters Date Type Department Care Team ([facility] st Contact Info) Description 04/09/2024 10:30 AM EST Medication Management [facility] MEDICINE [address] [place] [address] Kourtney Su, PharmD [address] [place] [phone] 05/06/2024 10:00 AM EDT Office Visit [facility]INE [address] [place] [address] Matilde Calabrese MD [address] [place] [phone] 06/03/2024 11:30 AM EDT Office Visit [facility] MED [facility]S [address] [place] [address] Rodger Cole MD [address] [place] [address] documented as of this encounter Visit Diagnoses Not on filedocumented in this encounter Additional Health Concerns Assessment Noted Time PHQ-9 Depression Total Score: 18 024 9:55 AM EST documented as of this encounter Care Teams Supervisor Drapery Hanging Relationship Specialty Start Date End Date Matilde Calabrese MD [address] [place] [address] PCP - General Internal Medicine 11/23/23 Kourtney Su PharmD [address] [place] [address] Pharmacist Internal Medicine 12/05/23 Cecily Pinedo RN [address] [place] [address] Fishing Accessories MakerObstetrical Nurse 01/08/24 [facility] 01/09/24 documented as of this encounter
--- OUTSIDE RECORDS SUMMARY | 2024-03-28 12:59 | XMS_ITS | Encounter Summary ---
Author Organization [employer] Address [address] [facility] [address] [place] [address] Care Team Providers Care Franchise Sales Director Name Role Phone Matilde Calabrese MD Primary Care Provide r Kourtney Su PharmD Unavailable [phone] Cecily Pinedo RN Unavailable [phone] Encounter Details Date Type Department Care Team (Late st Contact Info) Description 03/12/2024 Telephone [facility] MEDICINE [address] [place] [address] Cecily Pinedo RN [address] [place] [address] Social History Tobacco Use Types Packs/Day Years [...] was able to talk to Rhina at [facility] pharmacy and states this has been taken [...] Description 04/09/2024 10:30 AM EST Medication Management [facility] MEDICINE [address] [place] [address] Kourtney Su, PharmD [address] [place] [address] 05/06/2024 10:00 AM EDT Office Visit [facility] MEDICINE [address] [place] [address] Matilde Calabrese MD [address] [place] [address] 06/03/2024 11:30 AM EDT Office Visit [facility] MED & PEDS [address] [place], [place] [phone] Rodger Cole MD [address] [place], [place] [phone] documented as of this encounter Visit Diagnoses Not on filedocumented in this encounter Additional Health Concerns Assessment Noted Time PHQ-9 Depression Total Score: 18 024 9:55 AM EST documented as of this encounter Care Teams Franchise Sales Director Relationship Specialty Start Date End Date Matilde Calabrese MD [address] [place] [address] PCP - General Internal Medicine 11/23/23 Kourtney Su PharmD [address] [place] [address] Pharmacist Internal Medicine 12/05/23 Cecily Pinedo RN [address] [place] [phone] Plant Culture ManagerV Block Saw Operator 01/08/24 [facility] 01/09/24 documented as of this encounter
--- OUTSIDE RECORDS SUMMARY | 2024-03-28 12:59 | XMS_ITS | Encounter Summary ---
Author Organization [employer] Address [address] 7[address] [place] [address] Care Team Providers Care Orbitread Operator Name Role Phone Matilde Calabrese MD Primary Care Provide r Kourtney Su PharmD Unavailable [phone] Cecily Pinedo RN Unavailable [phone] Encounter Details Date Type Department Care Team (Latest Contact Info) Description 03/21/2024 Travel Social History Tobacco Use Types Packs/Day [...] Upcoming Encounters Date Type Department Care Team ([facility] st Contact Info) Description 04/09/2024 10:30 AM EST Medication Management [facility] [address] [place] [address] Kourtney Su, PharmD [address] [place] [address] 05/06/2024 10:00 AM EDT Office Visit [facility] [address] [place] [address] Matilde Calabrese MD [address] [place] [address] 06/03/2024 11:30 AM EDT Office Visit [facility] [address] [place] [address] Rodger Cole MD 505 [place] [address] documented as of this encounter Visit Diagnoses Not on filedocumented in this encounter Additional Health Concerns Assessment Noted Time PHQ-9 Depression Total Score: 18 024 9:55 AM EST documented as of this encounter Care Teams Orbitread Operator Relationship Specialty Start Date End Date Matilde Calabrese MD 230 [place] [address] PCP - General Internal Medicine 11/23/23 Kourtney Su PharmD [address] [place] [address] Pharmacist Internal Medicine 12/05/23 Cecily Pinedo RN [address] [place] [address] Manager EquipmentSap Abap Programmer 01/08/24 [facility] 01/09/24 documented as of this encounter
--- OUTSIDE RECORDS SUMMARY | 2024-03-28 12:59 | XMS_ITS | Encounter Summary ---
Author Organization [employer] Address [address] 7[address] [place] [address] Care Team Providers Care Welder Pipe Making Name Role Phone Matilde Calabrese MD Primary Care Provide r Kourtney Su PharmD Unavailable [phone] Cecily Pinedo RN Unavailable [phone] Encounter Details Date Type Department Care Team (Late st Contact Info) Description 03/14/2024 Orders Only [facility] [address] [place], [place] [phone] Christian Muñoz MD [address] [place], [place] [phone] Social History Tobacco Use Types Packs/Day Years [...] as of this encounter Miscellaneous Notes * Result Encounter Note - Christian Fuchs MD - 03/14/2024 10:07 AM EST Please contact patient to let him know his CT does not necessarily explain his complaints, but out of an abundance of caution is a good idea to take the antibiotics he was prescibed at [facility]. Please reinforce the importance of keeping his appointment for tomorrow the . He might need an MRI if symptoms do not improve documented in this encounter Plan of Treatment Upcoming Encounters Date Type Department Care Team (Late st Contact Info) Description 04/09/2024 10:30 AM EST Medication Management [facility] [address] [place] [address] Kourtney Su, PharmD [address] [place] [address] 05/06/2024 10:00 AM EDT Office Visit [facility] [address] [place] [address] Matilde Calabrese MD 230 [facility] [place] [address] 06/03/2024 11:30 AM EDT Office Visit [facility] 505 [facility] [place] [address] Rodger Cole MD 505 [facility] [place] [address] documented as of this encounter Procedures Procedure Name Priority Date/Time Associated Diagnosis Comments CT ORBIT BI WO CONTRAST Routine 03/14/2024 10:05 AM EST documented in this encounter Results * CT ORBIT BI WO CONTRAST (03/14/2024 10:05 AM EST) Anatomical Region Laterality Modality Head, Neck Computed Tomogra phy 03/14/2024 10:0 5 AM EST Narrative 03/14/2024 10:07 AM EST ? [facility] ?[address] ?[place] [address] ? CT Scan Report ? Signed ? Patient: Anderson,Raji ?MR#: [id number] ? : 1985 ?Acct:[id number] ? Age/Sex: 38 / M ?ADM Date: 03/14/24 ? Loc: HO.CT ? Attending Dr: Christian Shelton MD ? Ordering Physician: Christian Shelton MD ?? Date of Service: 03/14/24 ?? Procedure(s): CT orbit BI wo IV con ?? Accession Number(s): [id number] ? cc: Matilde Calabrese MD; Christian Shelton MD ? Report Number: ?? [id number]: Total DLP = ??121.00 mGy-cm ? CLINICAL [...] in OV> ? 03/14/24 1006 ? DD/ 1005 ? TD/TT: 03/14/24 1005 ? Back Panel Padder: ? Procedure Note Alberjerod, Salima - 03/14/[address] [place] [address] [address] Scan Report Signed Patient: Cedrick Anderson#: [id number] : 1985Acct:[id number] Age/Sex: 38 / MADM Date: 03/14/24 Loc: HO.CT Attending Dr: Christian Shelton MD Ordering Physician: Christian Shelton MD Date of Service: 03/14/24 Procedure(s): CT orbit BI wo IV con Accession Number(s): [id number] cc: Matilde Calabrese MD; Christian Shelton MD Report Number: [id number]: Total DLP = 121.00 mGy-cm CLINICAL HISTORY: [...] 03/14/24 1006 DD/ 1005 TD/TT: 03/14/24 1005 Back Panel Padder: us Christian Fuchs MD IMG CT PROCEDURES Fin al Result documented in this encounter Visit Diagnoses Not on filedocumented in this encounter Additional Health Concerns Assessment Noted Time PHQ-9 Depression Total Score: 18 024 9:55 AM EST documented as of this encounter Care Teams Welder Pipe Making Relationship Specialty Start Date End Date Matilde Calabrese MD [address] [place] [address] PCP - General Internal Medicine 11/23/23 Kourtney Su PharmD [address] [place] [address] Pharmacist Internal Medicine 12/05/23 Cecily Pinedo RN [address] [place] [address] Silk WorkerTree Scout 01/08/24 [facility] 01/09/24 documented as of this encounter
--- OUTSIDE RECORDS SUMMARY | 2024-03-28 12:59 | XMS_ITS | Encounter Summary ---
Author Organization [employer] Address [address] [facility] 7t [place] [address] Care Team Providers Care Impression Printer Name Role Phone Alexandre Sadnoval MD Primary Care Prov ider Matilde Calabrese MD Primary Care Provide r Kourtney Su PharmD Unavailable Cecily Pinedo RN Unavailable [phone] Encounter Details Date Type Department Care Team ([facility] Contact Info) Description 07/18/2022 Orders Only [facility]S [address] [place] [address] Belem Pedraza LPN Social History Tobacco Use [...] Upcoming Encounters Date Type Department Care Team ([facility] Contact Info) Description 04/09/2024 10:30 AM EST Medication Management [facility] [address] [place], [place] [phone] Kourtney Su, PharmD 230 [place], [place] [phone] 05/06/2024 10:00 AM EDT Office Visit [facility] [address] [place] [address] Matilde Calabrese MD 230 [place] [address] 06/03/2024 11:30 AM EDT Office Visit [facility] [address] [place] [address] Rodger Cole MD 505 [place] [address] documented as of this encounter Visit Diagnoses Not on filedocumented in this encounter Care Teams Impression Printer Relationship Specialty Start Date End Date Alexandre Sandoval MD 505 [place] [address] PCP - General Internal Medicine 07/20/19 11/22/23 Matilde Calabrese MD [address] [place] [address] PCP - General Internal Medicine 11/23/23 Kourtney Su, EmmaD [address] [place] [address] Pharmacist Internal Medicine 12/05/23 Cecily Pinedo, ROSA [address] [place] [address] ServiceCyber Security Systems Engineer 01/08/24 [facility] 01/09/24 documented as of this encounter
--- OUTSIDE RECORDS SUMMARY | 2024-03-28 12:59 | XMS_ITS | Encounter Summary ---
Author Organization [employer] Address [address] [place] [address] Care Team Providers Care Glass Presser Name Role Phone Matilde Calabrese MD Primary Care Provide r Reason for Referral * Consultation (Routine) - Authorized Specialty Diagnoses / Procedures Referred By Contmaine t Referred To Contact Otolaryngology Diagnoses Acute nonintractable headache, unspecified headache type Car Ochoa PA [address] [place] [address] [facility] [address] [place] [address] Referral ID Status Reason Start Date Expiration Date Visits Requested Visits Authorized [id number] Authorized Specialty Services Required 03/16/2024 03/16/2025 1 1 Reason for Visit * Reason Comments Eye Problem Bilat eye pain, told either issue with tear duct or his DM Facial Pain R sided facial pain Encounter Details Date Type Department Care Team (Late st Contact Info) Description 03/16/2024 12:17 PM EST - 03/16/2024 6:31 PM EST Emergency [facility] Emergency [address] [place] [phone] Eloise Garber DO [address] [place] [address] MD [address] [place] [address] Acute nonintractable headache, unspecified headache type (Primary [...] be sent through Care Everywhere. * Headache (Bolivian) documented in this encounter Medications at Time [...] dx. Pt had CT scan outpatient by door to door salesperson but has not had results yet. Pt [...] the results yet he did see an door to door salesperson was told that he had blocked tear [...] Date OTHER SURGICAL HISTORY Left 04/16/2023 PROCEDURE: TN I&D BELOW FASCIA FOOT 1 BURSAL SPACE OTHER SURGICAL HISTORY Left 04/18/2023 PROCEDURE: TN INCISION BONE CORTEX FOOT; COMMENT: left, distal hallux OTHER SURGICAL HISTORY 04/18/2023 PROCEDURE: TN REPAIR INTERMEDIATE N/H/F/XTRNL GENT 2.5CM/< TOE SURGERY [...] Detected Narrative: Testing was performed using the [employer] Respiratory Pathogen PCR Assay. All results must [...] Procedure Abnormality Status --------- ------ CBC auto differential[[id number]] Abnormal Final result Please view results for [...] of the mastoid air cells, likely infectious/[place] [employer] [place] ([id number]) -------- FINAL REPORT -------- Dictated By: Edilma Camara Dictated Date: 03/16/2024 14:30 ET Assigned Physician: Edilma Camara Reviewed and Electronically Signed By: Edilma Camara Signed Date: 03/16/2024 14:32 ET Workstation ID: [id number] Transcribed By: Self Edit Transcribed Date: 03/16/2024 [...] documented in this encounter Plan of Treatment Scheduled Referrals Name Type Priority Associated Diagnoses [...] LAB MICROBIOLOGY METHOD 03/16/2024 3:55 PM EST [facility] Influenza A PCR Not Detected Not Detected LAB MICROBIOLOGY METHOD 03/16/2024 3:55 PM EST [facility] Influenza B PCR Not Detected Not Detected LAB MICROBIOLOGY METHOD 03/16/2024 3:55 PM [facility] Coronavirus 229E Not Detected Not Detected LAB MICROBIOLOGY METHOD 03/16/2024 3:55 PM [facility] Coronavirus HKU1 Not Detected Not Detected LAB MICROBIOLOGY METHOD 03/16/2024 3:55 PM EST [facility] Coronavirus OC43 Not Detected Not Detected LAB MICROBIOLOGY METHOD 03/16/2024 3:55 PM [facility] Coronavirus NL63 Not Detected Not Detected LAB MICROBIOLOGY METHOD 03/16/2024 3:55 PM EST [facility] Parainfluenza Virus 1 Not Detected Not Detected LAB MICROBIOLOGY METHOD 03/16/2024 3:55 PM EST [facility] Parainfluenza Virus 2 Not Detected Not Detected LAB MICROBIOLOGY METHOD 03/16/2024 3:55 PM EST [facility] Parainfluenza Virus 3 Not Detected Not Detected LAB MICROBIOLOGY METHOD 03/16/2024 3:55 PM [facility] Parainfluenza Virus 4 Not Detected Not Detected LAB MICROBIOLOGY METHOD 03/16/2024 3:55 PM [facility] RSV PCR Not Detected Not Detected LAB MICROBIOLOGY METHOD 03/16/2024 3:55 PM [facility] Human Metapneumovirus A and B Not Detected Not Detected LAB MICROBIOLOGY METHOD 03/16/2024 3:55 PM EST [facility] Rhinovirus/Entero virus Not Detected Not Detected LAB MICROBIOLOGY METHOD 03/16/2024 3:55 PM [facility] Bordetella pertussis Not Detected Not Detected LAB MICROBIOLOGY METHOD 03/16/2024 3:55 PM EST [facility] Bordetella parapertussis Not Detected Not Detected LAB MICROBIOLOGY METHOD 03/16/2024 3:55 PM [facility] Mycoplasma pneumo by PCR Not Detected Not Detected LAB MICROBIOLOGY METHOD 03/16/2024 3:55 PM [facility] Chlamydia pneumoniae Not Detected Not Detected LAB MICROBIOLOGY METHOD 03/16/2024 3:55 PM [facility] SARS COV-2 Not Detected Not Detected LAB MICROBIOLOGY METHOD 03/16/2024 3:55 PM EST [facility] Swab Both anterior nares / Unknown Non-blood Collection / Unknown 03/16/2024 2:28 PM EST 03/16/2024 2:51 PM EST Narrative [facility] - 03/16/2024 3:55 PM EST Testing was performed using the [employer] Respiratory Pathogen PCR Assay. All results must [...] WADE LAB MICROBIOLO GY - GENERAL ORDERABLES [facility] [address] [place] [address], * CT Head wo Contrast (03/16/2024 2:11 PM EST) Anatomical Region Laterality Modality Head and Neck Computed Tomogra phy 03/16/2024 2:30 PM EST Impressions 03/16/2024 2:32 PM EST Impression: 1. No significant intracranial abnormality identified. 2. Partial opacification of the mastoid air cells, likely infectious/inflammatory. [employer] SHERI ([id number]) -------- FINAL REPORT -------- Dictated By: Edilma Camara Dictated Date: 03/16/2024 14:30 ET Assigned Physician: Edilma Camara Reviewed and Electronically Signed By: Edilma Camara Signed Date: 03/16/2024 14:32 ET Workstation ID: [id number] Transcribed By: Self Edit Transcribed Date: 03/16/2024 14:30 ET Narrative 03/16/2024 2:32 PM EST History: Headache. Classic migraine. Comparison: No comparison imaging at this institution. Technique: Contiguous axial images were obtained at 2.5 mm intervals through the posterior fossa and at 5 mm intervals through the remainder of the head without intravenous contrast. DLP: 900.99 mGy/cm GE lightspeed VCT Iterative reconstruction technique Findings: The ventricular [...] without intravenous contrast. DLP: 900.99 mGy/cm GE lightspeed VCT Iterative reconstruction technique Findings: The ventricular [...] the mastoid air cells, likelyinfectious/inflammatory. [employer] [place] ([id number]) -------- FINAL REPORT -------- Dictated By: Edilma Camara Dictated Date: 03/16/2024 14:30 ET Assigned Physician: Edilma Camara Reviewed and Electronically Signed By: Edilma Camara Signed Date: 03/16/2024 14:32 ET Workstation ID: [id number] Transcribed By: Self Edit Transcribed Date: 03/16/2024 14:30 ET Rosa Albertnds-Coreen PA IMG CT PROCEDU RES * Triiodothyronine free (03/16/2024 10:42 AM EST) T3, Free 328 230 - 420 pcg/dL LAB CHEMISTRY METHOD 03/16/2024 3:49 PM EST [facility] Blood Venous blood specimen / Unknown Venipuncture / Unknown 03/16/2024 10:42 AM EST 03/16/2024 10:52 AM EST Rosa WADE LAB BLOOD ORDIain DYERSTEPHANIE Performing Organization Address [facility]/ZIP Co de Phone Number [facility] [address] [place] [address], [place] [phone] * Free thyroxine with reflex to free triiodothyronine (03/16/2024 10:42 AM EST) Free T4 1.29 0.70 - 1.80 ng/dL LAB CHEMISTRY METHOD 03/16/2024 3:21 PM EST [facility] Blood Venous blood specimen / Unknown Venipuncture / Unknown 03/16/2024 10:42 AM EST 03/16/2024 10:52 AM EST Rosa WADE LAB BLOOD ORDIain MACHADO [facility] [address] [place] [address], [place] [phone] * (ABNORMAL) Thyroid stimulating hormone with reflex to free t4 and free t3 (TSH Reflex) (03/16/2024 10:42 AM EST) TSH 4.77(H) 0.40 - 4.00 mcIU/mL LAB CHEMISTRY METHOD 03/16/2024 2:53 PM EST [facility] Blood Venous blood specimen / Unknown Venipuncture / Unknown 03/16/2024 10:42 AM EST 03/16/2024 10:52 AM EST Rosa WADE LAB BLOOD RAJ MACHADO [facility] [address] [place] [address], * (ABNORMAL) CBC auto differential (03/16/2024 10:42 AM EST) WBC 11.3(H) 4.8 - 10.8 K/mcL LAB HEMETOLOGY METHOD 03/16/2024 10:57 AM EST [facility] RBC 4.70 4.50 - 5.50 M/mcL LAB HEMETOLOGY METHOD 03/16/2024 10:57 AM [facility] Hemoglobin 14.1 13.5 - 17.5 g/dL LAB HEMETOLOGY METHOD 03/16/2024 10:57 AM [facility] Hematocrit 40.5(L) 42.0 - 54.0 % LAB HEMETOLOGY METHOD 03/16/2024 10:57 AM [facility] MCV 86.0 79.0 - 98.0 FL LAB HEMETOLOGY METHOD 03/16/2024 10:57 AM [facility] MCH 29.9 27.0 - 32.0 pcg LAB HEMETOLOGY METHOD 03/16/2024 10:57 AM [facility] MCHC 34.8 32.0 - 37.0 g/dL LAB HEMETOLOGY METHOD 03/16/2024 10:57 AM [facility] RDW 11.9 11.0 - 15.0 % LAB HEMETOLOGY METHOD 03/16/2024 10:57 AM [facility] Platelets 323 130 - 400 K/mcL LAB HEMETOLOGY METHOD 03/16/2024 10:57 AM [facility] MPV 9.9 7.0 - 11.0 FL LAB HEMETOLOGY METHOD 03/16/2024 10:57 AM [facility] NRBC 0.0 <1.0 % LAB HEMETOLOGY METHOD 03/16/2024 10:57 AM [facility] NRBC Absolute 0.00 <0.10 K/mcL LAB HEMETOLOGY METHOD 03/16/2024 10:57 AM [facility] Neutrophils Relative 65.0 % LAB HEMETOLOGY METHOD 03/16/2024 10:57 AM [facility] Lymphocytes Relative 24.6 % LAB HEMETOLOGY METHOD 03/16/2024 10:57 AM [facility] Monocytes Relative 6.4 % LAB HEMETOLOGY METHOD 03/16/2024 10:57 AM [facility] Eosinophils Relative 2.7 % LAB HEMETOLOGY METHOD 03/16/2024 10:57 AM [facility] Basophils Relative 0.9 % LAB HEMETOLOGY METHOD 03/16/2024 10:57 AM [facility] Immature Granulocytes Relative 0.4 % LAB HEMETOLOGY METHOD 03/16/2024 10:57 AM [facility] Neutrophils Absolute 7.36(H) 1.50 - 7.00 K/mcL LAB HEMETOLOGY METHOD 03/16/2024 10:57 AM [facility] Lymphocytes Absolute 2.79 1.00 - 5.00 K/mcL LAB HEMETOLOGY METHOD 03/16/2024 10:57 AM [facility] Monocytes Absolute 0.72 0.20 - 1.00 K/mcL LAB HEMETOLOGY METHOD 03/16/2024 10:57 AM [facility] Eosinophils Absolute 0.31 0.00 - 0.50 K/mcL LAB HEMETOLOGY METHOD 03/16/2024 10:57 AM [facility] Basophils Absolute 0.10 0.00 - 0.20 K/[facility] LAB HEMETOLOGY METHOD 03/16/2024 10:57 AM EST [facility] Immature Granulocytes Absolute 0.04(H) 0.00 - 0.03 K/[facility] LAB HEMETOLOGY METHOD 03/16/2024 10:57 AM EST [facility] Blood Venous blood specimen / Unknown Venipuncture / Unknown 03/16/2024 10:42 AM EST 03/16/2024 10:52 AM EST Eloise Garber LAB BLOOD ORDERAB LES [facility] [address] [place] [address], [place] [phone] * Lactate, with reflex (03/16/2024 10:42 AM EST) LACTIC ACID 1.1 0.4 - 2.0 mmol/L LAB CHEMISTRY METHOD 03/16/2024 11:42 AM EST [facility] Blood Venous blood specimen / Unknown Venipuncture / Unknown 03/16/2024 10:42 AM EST 03/16/2024 11:06 AM EST Eloise Garber LAB BLOOD ORDERAB LES [facility] [address] [place] [address], [place] [phone] * Lipase (03/16/2024 10:42 AM EST) Lipase 38 13 - 75 unit/L LAB CHEMISTRY METHOD 03/16/2024 11:31 AM EST [facility] Blood Venous blood specimen / Unknown Venipuncture / Unknown 03/16/2024 10:42 AM EST 03/16/2024 10:52 AM EST Luxkrys Garber DO LAB BLOOD ORDERAB LES [facility] [address] [place] [address], * (ABNORMAL) Comprehensive metabolic panel (03/16/2024 10:42 AM EST) Sodium 133 133 - 145 mmol/L LAB CHEMISTRY METHOD 03/16/2024 11:33 AM EST [facility] Potassium 4.3 3.5 - 5.5 mmol/L LAB CHEMISTRY METHOD 03/16/2024 11:33 AM [facility] Chloride 102 96 - 110 mmol/L LAB CHEMISTRY METHOD 03/16/2024 11:33 AM [facility] CO2 29 21 - 32 mmol/L LAB CHEMISTRY METHOD 03/16/2024 11:33 AM [facility] Anion Gap 2(L) 3 - 11 LAB CHEMISTRY METHOD 03/16/2024 11:33 AM [facility] Glucose 201(H) 70 - 100 mg/dL LAB CHEMISTRY METHOD 03/16/2024 11:33 AM [facility] BUN 14 5 - 25 mg/dL LAB CHEMISTRY METHOD 03/16/2024 11:33 AM [facility] Creatinine 0.97 0.70 - 1.30 mg/dL LAB CHEMISTRY METHOD 03/16/2024 11:33 AM [facility] eGFR 103 >=60 mL/min/1. 73m2 LAB CHEMISTRY METHOD 03/16/2024 11:33 AM [facility] Comment:Calculation based on the??Chronic Kidney Disease Epidemiology Collaboration (CKD-EPI) equation refit??without adjustment for race. BUN/Creatinine Ratio 14.4 LAB CHEMISTRY METHOD 03/16/2024 11:33 AM [facility] Calcium 9.8 8.5 - 10.5 mg/dL LAB CHEMISTRY METHOD 03/16/2024 11:33 AM [facility] AST (SGOT) 15 10 - 42 unit/L LAB CHEMISTRY METHOD 03/16/2024 11:33 AM [facility] ALT (SGPT) 25 10 - 60 unit/L LAB CHEMISTRY METHOD 03/16/2024 11:33 AM [facility] Alkaline Phosphatase 81 42 - 121 unit/L LAB CHEMISTRY METHOD 03/16/2024 11:33 AM [facility] Total Protein 8.6(H) 6.0 - 8.0 g/dL LAB CHEMISTRY METHOD 03/16/2024 11:33 AM [facility] Albumin 4.5 3.2 - 5.0 g/dL LAB CHEMISTRY METHOD 03/16/2024 11:33 AM [facility] Total Bilirubin 0.6 0.0 - 1.4 mg/dL LAB CHEMISTRY METHOD 03/16/2024 11:33 AM [facility] Blood Venous blood specimen / Unknown Venipuncture / Unknown 03/16/2024 10:42 AM EST 03/16/2024 10:52 AM EST Eloise Garber DO LAB BLOOD ORDERAB LES [facility] Organization Address City/State/[facility] Co de Phone Number [facility] [address] [place] [address], documented in this encounter Visit Diagnoses Diagnosis [...] documented as of this encounter Care Teams Glass Presser Relationship Specialty Start Date End Date Matilde Calabrese MD [address] [phone] PCP - General 11/22/23 documented as of this encounter
--- OUTSIDE RECORDS SUMMARY | 2024-03-28 13:00 | XMS_ITS | Encounter Summary ---
Author Organization [employer] Address [address] 7[address] [place] [address] Care Team Providers Care Telecom Billing Analyst Name Role Phone Matilde Calabrese MD Primary Care Provide r Kourtney Su PharmD Unavailable [phone] Cecily Pinedo RN Unavailable [phone] Encounter Details Date Type Department Care Team (Late st Contact Info) Description 02/28/2024 Telephone [facility] [address] [place], [place] [phone] Matilde Calabrese MD [address] [place], [place] [phone] Social History Tobacco Use Types Packs/Day Years [...] Description 04/09/2024 10:30 AM EST Medication Management [facility] [address] [place] [address] Kourtney Su, PharmD [address] [place] [address] 05/06/2024 10:00 AM EDT Office Visit [facility] [address] [place] [phone] Matilde Calabrese MD [address] [place] [address] 06/03/2024 11:30 AM EDT Office Visit [facility] [address] [place] [address] Rodger Cole MD [address] [place] [address] documented as of this encounter Visit Diagnoses Not on filedocumented in this encounter Additional Health Concerns Assessment Noted Time PHQ-9 Depression Total Score: 18 024 9:55 AM EST documented as of this encounter Care Teams Telecom Billing Analyst Relationship Specialty Start Date End Date Matilde Calabrese MD [address] [place] [address] PCP - General Internal Medicine 11/23/23 Kourtney Su PharmD [address] [place] [address] Pharmacist Internal Medicine 12/05/23 Cecily Pinedo RN [address] [place] [phone] Senior It RecruiterGas Singer 01/08/24 [facility] 01/09/24 documented as of this encounter
--- OUTSIDE RECORDS SUMMARY | 2024-03-28 13:00 | XMS_ITS | Encounter Summary ---
Author Organization [employer] Address 75 [facility] 7t [place] [address] Care Team Providers Care Interior Systems Carpenter Name Role Phone Matilde Calabrese MD Primary Care Provide r Kourtney Su PharmD Unavailable [phone] Cecily Pinedo RN Unavailable [phone] Reason for Referral * Consultation (STAT) - Closed Specialty Diagnoses / Procedures Referred By Carola t Referred To Contact Optometry Diagnoses Ocular pain, right eye Christian Muñoz MD [address] [place] [address] Phone: tel: fax: [facility] OPTOMETRY [address] [place] [address] Phone: tel: fax: Referral ID Status Reason Start Date Expiration Date V isits Requested Visits Authorized [id number] Closed Consult and Treat 03/11/2024 03/11/2025 1 1 * Imaging (STAT) - Closed Specialty Diagnoses / Procedures Referred By Contac t Referred To Contact Radiology Diagnoses Ocular pain, right eye Acute intractable headache, unspecified headache type Procedures CT Orbits/Sella w/o Contrast Christian Muñoz MD [address] [place] [address] Phone: tel: fax: [facility] [address] [place], [place] Phone: tel: fax: Referral ID Status Reason Start Date Expiration Date Visits Re quested Visits Authorized [id number] Closed 03/11/2024 03/11/2025 1 1 * Imaging (Routine) - Closed Specialty Diagnoses / Procedures Referred By Contac t Referred To Contact Radiology Diagnoses Ocular pain, right eye Acute intractable headache, unspecified headache type Procedures CT Head w/o Contrast Christian Muñoz MD [address] [place] [address] Phone: tel: fax: [address] Phone: tel: fax: Referral ID Status Reason Start Date Expiration Date Visits Re quested Visits Authorized [id number] Closed 03/11/2024 03/11/2025 1 1 Reason for Visit * Reason Comments Follow-up [facility] Encounter Details Date Type Department Care Team (Late st Contact Info) Description 03/11/2024 3:00 PM EST Office Visit [facility] MEDICINE [address] [place] [address] Christian Muñoz MD [address] [place] [address] Ocular pain, right eye; Acute intractable headache, [...] 38 y.o. male who presents for Follow-up ([facility]). Mr Anderson is a patient of Dr. Youngblood 38-year-old male with insulin-dependent diabetes, hypertension who is here for an ER follow up He presented to [facility] the ER 03/09/2024 reporting right-sided [...] right sided headache as well. Seen at [facility] ER, intraocular pressure per ER report on right eye was normal. On today's exam pt has photophobia and painful extraocular movements on the right. No redness, mildtenderness to palpation right eye. Etiology ? Ocular migraine vs other etiologies Plan: Stat Orbital and head CT. CBC, ESR. Pt to be seen by our [place] Man Dr. Gresham tomorrow at 3:45 PM Follow up with PCP in [address] Head w/o Contrast CT Orbits/Sella w/o Contrast Referral to [facility] Eye Care CBC auto differential Sed Rate [...] right sided headache as well. Seen at [facility] ER, intraocular pressure per ER report on right eye was normal. On today's exam pt has photophobia and painful extraocular movements on the right. No redness, mildtenderness to palpation right eye. Etiology ? Ocular migraine vs other etiologies Plan: Stat Orbital and head CT. CBC, ESR. Pt to be seen by our [place] Man Dr. Gresham tomorrow at 3:45 PM Follow up with PCP in 1 week documented in this encounter Plan of Treatment Upcoming Encounters Date Type Department Care Team (Late st Contact Info) Description 04/09/2024 10:30 AM EST Medication Management [facility] MEDICINE [address] [place] [address] Kourtney Su PharmD [address] [place] [address] 05/06/2024 10:00 AM EDT Office Visit [facility] MED[facility]INE [address] [place] [address] Matilde Calabrese MD [address] [place] [address] 06/03/2024 11:30 AM EDT Office Visit [facility] MED & PEDS [address] [place] [address] Rodger Cole MD [address] [place] [address] Scheduled Orders Name Type Priority Associated Diagnoses Orde r Schedule CT Orbits/Sella w/o Contrast Imaging STAT Ocular pain, right eye Acute intractable headache, unspecified headache type Ordered: 03/11/2024 Scheduled Referrals Name Type Priority Associated Diagnoses Orde r Schedule Referral to [facility] Eye Care Outpatient Referral STAT Ocular pain, [...] EST Narrative 03/14/2024 10:04 AM EST ? [facility] ?[address] ?[place] [address] ? CT Scan Report ? Signed ? Patient: Anderson,Raji ?MR#: [id number] ? : 1985 ?Acct:[id number] ? Age/Sex: 38 / M ?ADM Date: 03/14/24 ? Loc: HO.CT ? Attending Dr: Christian Shelton MD ? Ordering Physician: Christian Shelton MD ?? Date of Service: 03/14/24 ?? Procedure(s): CT head/brain wo IV con ?? Accession Number(s): [id number] ? cc: Matilde Calabrese MD; Christian Shleton MD ? Report Number: ?? [id number]: Total DLP = 1059.00 mGy-cm ? CLINICAL [...] DD/ 1002 ? TD/TT: 03/14/24 1002 ? Legislative Analyst: ? Procedure Note Rich, Image - 03/14/[address] [address] [address] Scan Report Signed Patient: Cedrick Anderson#: [id number] : 1985Acct:[id number] Age/Sex: 38 / MADM Date: 03/14/24 Loc: HO.CT Attending Dr: Christian Shelton MD Ordering Physician: Christian Shelton MD Date of Service: 03/14/24 Procedure(s): CT head/brain wo IV con Accession Number(s): [id number] cc: Matilde Calabrese MD; Christian Shelton MD Report Number: [id number]: Total DLP = 1059.00 mGy-cm CLINICAL HISTORY: [...] 03/14/24 1004 DD/ 1002 TD/TT: 03/14/24 1002 Legislative Analyst: us Christian Fuchs MD IMG CT PROCEDURES Fin al Result * (ABNORMAL) Basic Metabolic Panel (03/12/2024 2:58 PM EST) Sodium 135 135 - 145 mmol/L [facility] Potassium 4.3 3.3 - 5.1 mmol/L [facility] Chloride 105 96 - 108 mmol/L [facility] Carbon Dioxide 25 22 - 29 mmol/L [facility] Anion Gap 9(L) 12 - 20 [facility] Urea Nitrogen (BUN) 13 9 - 16 mg/dL [facility] Creatinine, Serum 0.93 0.5 - 1.4 mg/dL [facility] Estimated Glomerular Filt Rate >60 [facility] Comment:Chronic Kidney Disea se: Estimated GFR < 60 mL/min/1.22y5Kyerum Kidney Disease: Estimated GFR < 15 mL/min/1.73m2 Glucose 227(H) 60 - 115 mg/dL [facility] Calcium 9.6 8.4 - 10.2 mg/dL [facility] Blood Venous blood specimen / Unknown 03/12/2024 2:58 PM EST 03/12/2024 4:20 PM EST Christian Fuchs MD LAB BLOOD ORDERABLES Final Result Performing Organization Address [facility]/ZIP Co de Phone Number [facility] [address] [place] [phone] * (ABNORMAL) Sed Rate by Modified Reganren (03/12/2024 2:58 PM EST) Erythrocyte Sedimentation Rate 34(H) 0 - 15 MM/HR [facility] Comment:Patients with polycy themia and many hemoglobin abnormalitiesmay have depressed sed rates whereas patients with anemiamay have elevated sed rates. Blood Venous blood specimen / Unknown 03/12/2024 2:58 PM EST 03/12/2024 4:20 PM EST Christian Fuchs MD LAB BLOOD ORDERABLES Final Result Performing Organization Address [facility]/ZIP Co de Phone Number [facility] [address] [place] [phone] * (ABNORMAL) CBC auto differential (03/12/2024 2:58 PM EST) White Blood Count 9.5 4.8 - 10.8 X10*3/uL [facility] Red Blood Count 4.66 4.60 - 5.80 X10*6/uL [facility] Hemoglobin 13.9(L) 14.0 - 18.0 g/dl [facility] Hematocrit 40.0(L) 42.0 - 52.0 % [facility] Mean Corpuscular Volume 85.8 80.0 - 98.0 fL [facility] Mean Corpuscular Hemoglobin 29.8 27.0 - 33.0 pg [facility] Mean Corpuscular HGB Conc 34.8 31.0 - 36.0 g/dl [facility] Red Cell Distribution Width 12.3 11.0 - 16.0 % [facility] Platelet Count 326 160 - 400 X10*3/uL [facility] Mean Platelet Volume 10.4 9.4 - 12.4 fL [facility] Neutrophils Percent Auto 58.0 45 - 73 % [facility] Imm Gran Pct Auto 0.3 0.0 - 0.4 % [facility] Lymphocytes Percent Auto 30.5 20 - 40 % [facility] Monocytes Percent Auto 6.6 2 - 11 % [facility] Eosinophils Percent Auto 3.4 0 - 4 % [facility] Basophils Percent Auto 1.2 0 - 2 % [facility] NRBC Pct Auto 0.0 0.0 - 0.2 /100WBC [facility] Neutrophils Absolute Auto 5.5 2.0 - 8.3 x10*3/uL [facility] Imm Gran Abs Auto 0.03 0.00 - 0.03 X10*3/uL [facility] Lymphocytes Absolute Auto 2.9 1.2 - 4.9 X10*3/uL [facility] Monocytes Absolute Auto 0.6 0.1 - 1.2 X10*3/uL [facility] Eosinophils Absolute Auto 0.3 0.0 - 0.4 X10*3/uL [facility] Basophils Absolute Auto 0.1 0.0 - 0.2 X10*3/uL [facility] NRBC Abs Auto 0.000 0.0 - 0.012 X10*3/uL [facility] Blood Venous blood specimen / Unknown 03/12/2024 2:58 PM EST 03/12/2024 4:20 PM EST us Christian Fuchs MD LAB BLOOD ORDERABLES Final Result [facility] [address] [place] [phone] [phone] documented in this encounter Visit Diagnoses Diagnosis Ocular pain, right eye Acute intractable headache, unspecified headache type documented in this encounter Additional Health Concerns Assessment Noted Time PHQ-9 Depression Total Score: 18 024 9:55 AM EST documented as of this encounter Care Teams Interior Systems Carpenter Relationship Specialty Start Date End Date Matilde Calabrese MD [address] [place] [address] PCP - General Internal Medicine 11/23/23 Kourtney Su PharmD [address] [place] [address] Pharmacist Internal Medicine 12/05/23 Cecily Pinedo RN [address] [place] [address] Dry Wall Installations MechanicMobile Home Technician 01/08/24 [facility] 01/09/24 documented as of this encounter
--- OUTSIDE RECORDS SUMMARY | 2024-03-28 13:00 | XMS_ITS | Encounter Summary ---
Author Organization [email or web address] Address 75 [facility] 7t [place] [address] Care Team Providers Care Grocery Store Bagger Name Role Phone Matilde Calabrese MD Primary Care Provide r Kourtney Su PharmD Unavailable [phone] Cecily Pinedo RN Unavailable [phone] Reason for Referral * Neurology (Routine) - Closed Specialty Diagnoses / Procedures Referred By Contac t Referred To Contact Diagnoses Bilateral wrist pain Procedures Nerve conduction test Matilde Calabrese MD [address] [place] [address] Phone: tel: fax: [address] Phone: tel: fax: Referral ID Status Reason Start Date Expiration Date Visits Re quested Visits Authorized [id number] Closed 03/07/2024 03/07/2025 1 1 Reason for Visit * Reason Onset Date Comments Care Coordination 03/07/2024 Encounter Details Date Type Department Care Team (Late st Contact Info) Description 03/07/2024 Telephone [facility] MEDICINE [address] [place] [address] Cecily Pinedo RN [address] [place], [place] [phone] Care Coordination Social History Tobacco Use Types [...] 11:54 AM EST TC placed to patient [phone] to inform of below message. Patient verbalized [...] referral to Ortho/ EMG. Pleasecontact patient at [phone]. Thank you. documented in this encounter Plan of Treatment Upcoming Encounters Date Type Department Care Team (Late st Contact Info) Description 04/09/2024 10:30 AM EST Medication Management [facility] MEDICINE [address] [place] [address] Kourtney Su, PharmD [address] [place] [address] 05/06/2024 10:00 AM EDT Office Visit [facility] MEDICINE [address] [place] [address] Matilde Calabrese MD [address] [place] [address] 06/03/2024 11:30 AM EDT Office Visit [facility] CHC MED & PEDS [address] [place], [place] [phone] Rodger Cole MD [address] [place], [place] [phone] Scheduled Orders Name Type Priority Associated Diagnoses Orde r Schedule Nerve conduction test Neurology Routine Bilateral wrist pain Expected: 03/07/2024 (Approximate), Expires: 03/07/2025 documented as of this encounter Visit Diagnoses Diagnosis Bilateral wrist pain- Primary documented in this encounter Additional Health Concerns Assessment Noted Time PHQ-9 Depression Total Score: 18 024 9:55 AM EST documented as of this encounter Care Teams Grocery Store Bagger Relationship Specialty Start Date End Date Matilde Calabrese MD [address] [place] [address] PCP - General Internal Medicine 11/23/23 Kourtney Su PharmD [address] [place] [address] Pharmacist Internal Medicine 12/05/23 Cecily Pinedo RN [address] [place] [phone] On Air TalentAsset Accountant 01/08/24 [facility] 01/09/24 documented as of this encounter
--- OUTSIDE RECORDS SUMMARY | 2024-03-28 13:00 | XMS_ITS | Encounter Summary ---
Author Organization [employer] Address [address] [facility] [address] 7t [place] [address] Care Team Providers Care Developer Designer Name Role Phone Matilde Calabrese MD Primary Care Provide r Kourtney Su PharmD Unavailable [phone] Cecily Pinedo RN Unavailable [phone] Encounter Details Date Type Department Care [...] Upcoming Encounters Date Type Department Care Team ([facility] st Contact Info) Description 04/09/2024 10:30 AM EST Medication Management [facility] MEDICINE [address] [place] [phone] Kourtney Su, PharmD [address] [place] [phone] 05/06/2024 10:00 AM EDT Office Visit [facility] MEDICINE [address] [place] [address] Matilde Calabrese MD [address] [place] [phone] 06/03/2024 11:30 AM EDT Office Visit [facility] CH[facility] MED & PEDS [address] [place] [address] Rodger Cole MD [address] [place] [address] documented as of this encounter Visit Diagnoses Not on filedocumented in this encounter Additional Health Concerns Assessment Noted Time PHQ-9 Depression Total Score: 18 024 9:55 AM EST documented as of this encounter Care Teams Developer Designer Relationship Specialty Start Date End Date Matilde Calabrese MD [address] [place] [address] PCP - General Internal Medicine 11/23/23 Kourtney Su PharmD [address] [place] [address] Pharmacist Internal Medicine 12/05/23 Cecily Pinedo RN [address] [place] [phone] Assistant Professor Of SpanishRoll Weigher 01/08/24 [facility] 01/09/24 documented as of this encounter
--- OUTSIDE RECORDS SUMMARY | 2024-03-28 13:00 | XMS_ITS | Encounter Summary ---
Author Organization [employer] Address [address] [facility] [address] 7[address] [place] [address] Care Team Providers Care Typing Office Worker Name Role Phone Matilde Calabrese MD Primary Care Provide r Kourtney Su PharmD Unavailable [phone] Cecily Pinedo RN Unavailable [phone] Encounter Details Date Type Department Care Team (Late st Contact Info) Description 03/26/[address] [facility] MEDICINE [address] [place] [address] Cecily Pinedo, RN [address] [place] [address] Social History Tobacco Use Types Packs/Day Years [...] Telephone Encounter - Cecily Pinedo RN - 03/26/2024 9:46 AM EST Patient met with CM in person today. Patient making request to transfer all medications to [facility] pharmacy on [address]. Per patient, met with the pharmacy on Sunday and had issues with getting the Trulicity. CM contacted [facility] pharmacy. Spoke with Tiara who states she will place a note in the patient's chart. Patient to contact [facility] pharmacy , who will then contact [facility] to make the request for transfer, Patient informed. He agrees to contact [facility]. Patient aware of his scheduled visit with Nephrology on 03/28/24 at 12:15pm and he denies any barriers to attending. documented in this encounter Plan of Treatment Upcoming Encounters Date Type Department Care Team (Late st Contact Info) Description 04/09/2024 10:30 AM EST Medication Management [facility] MEDICINE [address] [place] [address] Kourtney Su, PharmD [address] [place], [place] [phone] 05/06/2024 10:00 AM EDT Office Visit [facility] MEDICINE [address] [place] [address] Matilde Calabrese MD [address] [place] [address] 06/03/2024 11:30 AM EDT Office Visit [facility] CHC MED & PEDS [address] [place] [address] Rodger Cole MD [address] [place] [address] documented as of this encounter Visit Diagnoses Not on filedocumented in this encounter Additional Health Concerns Assessment Noted Time PHQ-9 Depression Total Score: 18 024 9:55 AM EST documented as of this encounter Care Teams Typing Office Worker Relationship Specialty Start Date End Date Matilde Calabrese MD [address] [place] [address] PCP - General Internal Medicine 11/23/23 Kourtney Su PharmD [address] [place] [address] Pharmacist Internal Medicine 12/05/23 Cecily Pinedo RN [address] [place] [address] Heel Cementer MachineLine Haul Owner Operator 01/08/24 [facility] 01/09/24 documented as of this encounter
--- OUTSIDE RECORDS SUMMARY | 2024-03-28 13:00 | XMS_ITS | Encounter Summary ---
Author Organization [employer] Address [address] [facility] [address] 7t [place] [address] Care Team Providers Care Rim Fire Priming Operator Name Role Phone Matilde Calabrese MD Primary Care Provide r Kourtney Su PharmD Unavailable [phone] Cecily Pinedo RN Unavailable [phone] Reason for Visit * Reason Onset Date Comments Care Management 03/07/2024 C3CM- f/u call Encounter Details Date Type Department Care Team ([facility] st Contact Info) Description 03/07/2024 Telephone [facility] MEDICINE [address] [place] [address] Cecily Pinedo, RN [address] [place] [address] Care Management (C3CM- f/u call) Social History [...] the past 12 months, has t he [employer], gas, oil or water company threatened to [...] room visits.Patient confirms attending CDTM visits with [facility] pharmacy on 02/26/24 and 02/27/24. Per [...] which he has discussed with provider at [facility] during visit on 02/15/24.He reports use of [...] provided on [facility] located in [facility] of [facility]. Patient provided with after-hours line for [facility], , which offer night time triage service and option to transfer to family consumer science teacher provider if needed. Patient verbalizes understanding, and able to repeat back to copywriter. A follow up call will be placed within 10 days, patientagrees with plan. documented in this encounter Plan of Treatment Upcoming Encounters Date Type Department Care Team (Late st Contact Info) Description 04/09/2024 10:30 AM EST Medication Management [facility] MEDICINE [address] [place] [phone] Kourtney Su, PharmD [address] [place] [address] 05/06/2024 10:00 AM EDT Office Visit [facility] MEDICINE [address] [place] [phone] Matilde Calabrese MD [address] [place] [address] 06/03/2024 11:30 AM EDT Office Visit [facility] CHC MED & PEDS [address] [place], [place] [phone] Rodger Cole MD [address] [place], [place] [phone] documented as of this encounter Visit Diagnoses Not on filedocumented in this encounter Additional Health Concerns Assessment Noted Time PHQ-9 Depression Total Score: 18 024 9:55 AM EST documented as of this encounter Care Teams Rim Fire Priming Operator Relationship Specialty Start Date End Date Matilde Calabrese MD [address] [place] [address] PCP - General Internal Medicine 11/23/23 Kourtney Su PharmD [address] [place] [address] Pharmacist Internal Medicine 12/05/23 Cecily Pinedo RN [address] [place] [phone] Benefit AuthorizerJewelry Enameler 01/08/24 [facility] 01/09/24 documented as of this encounter
--- OUTSIDE RECORDS SUMMARY | 2024-03-28 13:00 | XMS_ITS | Clinical Summary ---
Author Organization [facility] Address [address] [place] [address] Phone Care Team Providers Care In Flight Refueling Manager Name Role Phone Matilde Calabrese MD [...] Additional Information Patient not taking.Reported on 02/04/2024 levoFLOXacin (LEVAQUIN) 500 mg tablet Take 1 tablet (500 mg total) by mouth 1 (one) time each day for 7 days. 7 tablet 03/16/2024 03/23/2024 Active Problems Problem Noted Date Diagnosed Date Sleep apnea Encounters Date Type Department Care Team Description 03/16/2024 12:17 PM EST - 03/16/2024 6:31 PM EST Emergency [facility] Emergency [address] [place] [address] Eloise Garber DO Patel, Parth B, MD Acute nonintractable headache, unspecified headache type (Primary Dx) Discharge Disposition: Home or Self Care 03/11/2024 8:45 AM EST Office Visit Orthopedic Surgery [facility] [address] [address] Elias Agee, DPM Cellulitis of left foot (Primary Dx); Dermatophytosis of nail; Ingrowing nail; Diabetic mononeuropathy simplex (CMS/HCC); Pain in toe of left foot; Pain in toe of right foot 03/09/2024 10:05 PM EST - 03/10/2024 1:10 AM EST [facility] Emergency [address] [place] [phone] Ocular migraine (Primary Dx) Discharge Disposition: Home or Self Care 03/07/2024 9:30 AM EST Clinical Support [address] [phone] Visit for suture removal (Primary Dx) 02/22/2024 10:30 AM EST Procedure visit [address] [phone] Nic Nieto MD Epidermal inclusion cyst (Primary Dx) 02/06/2024 1:39 PM EST - 02/06/2024 8:10 PM EST [address] [address] MD Rhinovirus (Primary Dx); Cellulitis of neck Discharge Disposition: Home or Self Care 02/04/2024 2:00 PM EST Office Visit [address] [address] Nic Nieto MD Inflamed epidermoid cyst of skin (Primary Dx); Type 2 diabetes mellitus without complication, with long-term current use of insulin (CMS/[facility]); Smoking 02/04/2024 9:49 AM EST - 02/04/2024 10:34 AM EST [facility] Emergency [address] [place] [phone] Cellulitis of neck (Primary Dx) Discharge Disposition: Home or Self Care 01/30/2024 10:29 PM EST - 01/31/2024 4:39 AM EST [facility] Emergency [address] [place] [phone] Neck pain on right side (Primary Dx) Discharge Disposition: Home or Self Care 01/26/2024 12:09 PM EST - 01/26/2024 3:10 PM EST Emergency [facility] Emergency [address] [place] [address] Lumbar strain, initial encounter (Primary Dx) Discharge Disposition: Home or Self Care 01/10/2024 10:30 AM EST Office Visit Orthopedic Surgery - [place] [address] [facility] [address] [place] [phone] Elias Agee DPM Ingrowing nail (Primary Dx); Dermatophytosis of nail; Diabetic mononeuropathy simplex (CMS/HCC); Pain in toe of left foot; Pain in toe of right foot from Last 3 Months Surgical History Surgery Date Site/Laterality Comments OTHER SURGICAL HISTORY 04/16/2023 Left PROCEDURE: GA I&D BELOW FASCIA FOOT 1 BURSAL SPACE OTHER SURGICAL HISTORY 04/18/2023 Left PROCEDURE: GA INCISION BONE CORTEX FOOT; COMMENT: left, distal hallux OTHER SURGICAL HISTORY 04/18/2023 PROCEDURE: GA REPAIR INTERMEDIATE N/H/F/XTRNL GENT 2.5CM/< TOE SURGERY [...] 03/16/2024 8:45 AM EST Plan of Treatment Health Maintenance Due Date Last Done Comments [...] 2-3 VIEWS STAT 01/26/2024 12:13 PM EST from Last 3 Months Results * Respiratory virus panel molecular study (03/16/2024 2:28 PM EST) Only the most recent of2 resultswithin the time period is included. Adenovirus Detection by PCR Not Detected Not Detected LAB MICROBIOLOGY METHOD 03/16/2024 3:55 PM [facility] Influenza A PCR Not Detected Not Detected LAB MICROBIOLOGY METHOD 03/16/2024 3:55 PM EST [facility] Influenza B PCR Not Detected Not Detected LAB MICROBIOLOGY METHOD 03/16/2024 3:55 PM [facility] Coronavirus 229E Not Detected Not Detected LAB MICROBIOLOGY METHOD 03/16/2024 3:55 PM [facility] Coronavirus HKU1 Not Detected Not Detected LAB MICROBIOLOGY METHOD 03/16/2024 3:55 PM EST [facility] Coronavirus OC43 Not Detected Not Detected LAB MICROBIOLOGY METHOD 03/16/2024 3:55 PM EST [facility] Coronavirus NL63 Not Detected Not Detected LAB MICROBIOLOGY METHOD 03/16/2024 3:55 PM [facility] Parainfluenza Virus 1 Not Detected Not Detected LAB MICROBIOLOGY METHOD 03/16/2024 3:55 PM [facility] Parainfluenza Virus 2 Not Detected Not Detected LAB MICROBIOLOGY METHOD 03/16/2024 3:55 PM [facility] Parainfluenza Virus 3 Not Detected Not Detected LAB MICROBIOLOGY METHOD 03/16/2024 3:55 PM [facility] Parainfluenza Virus 4 Not Detected Not Detected LAB MICROBIOLOGY METHOD 03/16/2024 3:55 PM [facility] RSV PCR Not Detected Not Detected LAB MICROBIOLOGY METHOD 03/16/2024 3:55 PM [facility] Human Metapneumovirus A and B Not Detected Not Detected LAB MICROBIOLOGY METHOD 03/16/2024 3:55 PM [facility] Rhinovirus/Entero virus Not Detected Not Detected LAB MICROBIOLOGY METHOD 03/16/2024 3:55 PM [facility] Bordetella pertussis Not Detected Not Detected LAB MICROBIOLOGY METHOD 03/16/2024 3:55 PM [facility] Bordetella parapertussis Not Detected Not Detected LAB MICROBIOLOGY METHOD 03/16/2024 3:55 PM [facility] Mycoplasma pneumo by PCR Not Detected Not Detected LAB MICROBIOLOGY METHOD 03/16/2024 3:55 PM [facility] Chlamydia pneumoniae Not Detected Not Detected LAB MICROBIOLOGY METHOD 03/16/2024 3:55 PM [facility] SARS COV-2 Not Detected Not Detected LAB MICROBIOLOGY METHOD 03/16/2024 3:55 PM [facility] Swab Both anterior nares / Unknown Non-blood Collection / Unknown 03/16/2024 2:28 PM EST 03/16/2024 2:51 PM EST Narrative [facility] - 03/16/2024 3:55 PM EST Testing was performed using the [employer] Respiratory Pathogen PCR Assay. All results must [...] WADE LAB MICROBIOLO GY - GENERAL ORDERABLES [facility] [address] [place] [address], * CT Head wo Contrast (03/16/2024 2:11 PM EST) Anatomical Region Laterality Modality Head and Neck Computed Tomogra phy 03/16/2024 2:30 PM EST Impressions 03/16/2024 2:32 PM EST Impression: 1. No significant intracranial abnormality identified. 2. Partial opacification of the mastoid air cells, likely infectious/inflammatory. Telerad SHERI ([id number]) -------- FINAL REPORT -------- Dictated By: Edilma Camara Dictated Date: 03/16/2024 14:30 ET Assigned Physician: Edilma Camara Reviewed and Electronically Signed By: Edilma Camara Signed Date: 03/16/2024 14:32 ET Workstation ID: [id number] Transcribed By: Self Edit Transcribed Date: 03/16/2024 14:30 ET Narrative 03/16/2024 2:32 PM EST History: Headache. Classic migraine. Comparison: No comparison imaging at this institution. Technique: Contiguous axial images were obtained at 2.5 mm intervals through the posterior fossa and at 5 mm intervals through the remainder of the head without intravenous contrast. DLP: 900.99 mGy/cm [employer] VCT Iterative reconstruction technique Findings: The ventricular [...] head without intravenous contrast. DLP: 900.99 mGy/cm [employer] VCT Iterative reconstruction technique Findings: The ventricular [...] the mastoid air cells, likelyinfectious/inflammatory. Telelv WADE ([id number]) -------- FINAL REPORT -------- Dictated By: Edilma Camara Dictated Date: 03/16/2024 14:30 ET Assigned Physician: Edilma Camara Reviewed and Electronically Signed By: Edilma Camara Signed Date: 03/16/2024 14:32 ET Workstation ID: [id number] Transcribed By: Self Edit Transcribed Date: 03/16/2024 14:30 ET Rosa WADE IMKrys CT PROCEDU RES * Lactate, with reflex (03/16/2024 10:42 AM EST) LACTIC ACID 1.1 0.4 - 2.0 mmol/L LAB CHEMISTRY METHOD 03/16/2024 11:42 AM EST [facility] Blood Venous blood specimen / Unknown Venipuncture / Unknown 03/16/2024 10:42 AM EST 03/16/2024 11:06 AM EST Eloise Winchester Jcarlos DO LAB BLOOD ORDERAB LES Performing Organization Address City/[facility]/ZIP Co de Phone Number [facility] [address] [place] [address], * (ABNORMAL) Thyroid stimulating hormone with reflex to free t4 and free t3 (TSH Reflex) (03/16/2024 10:42 AM EST) TSH 4.77(H) 0.40 - 4.00 mcIU/mL LAB CHEMISTRY METHOD 03/16/2024 2:53 PM EST [facility] Blood Venous blood specimen / Unknown Venipuncture / Unknown 03/16/2024 10:42 AM EST 03/16/2024 10:52 AM EST Rosa WADE LAB BLOOD ORDE CARTER Performing Organization Address [facility]/ZIP Co de Phone Number [facility] [address] [place] [address], [place] [phone] * Free thyroxine with reflex to free triiodothyronine (03/16/2024 10:42 AM EST) Free T4 1.29 0.70 - 1.80 ng/dL LAB CHEMISTRY METHOD 03/16/2024 3:21 PM EST [facility] Blood Venous blood specimen / Unknown Venipuncture / Unknown 03/16/2024 10:42 AM EST 03/16/2024 10:52 AM EST Rosa WADE LAB BLOOD ORDE CARTER Performing Organization Address City/[facility]/ZIP Co de Phone Number [facility] [address] [place] [address], * (ABNORMAL) CBC auto differential (03/16/2024 10:42 AM EST) Only the most recent of4 resultswithin the time period is included. WBC 11.3(H) 4.8 - 10.8 K/mcL LAB HEMETOLOGY METHOD 03/16/2024 10:57 AM EST [facility] RBC 4.70 4.50 - 5.50 M/mcL LAB HEMETOLOGY METHOD 03/16/2024 10:57 AM [facility] Hemoglobin 14.1 13.5 - 17.5 g/dL LAB HEMETOLOGY METHOD 03/16/2024 10:57 AM [facility] Hematocrit 40.5(L) 42.0 - 54.0 % LAB HEMETOLOGY METHOD 03/16/2024 10:57 AM [facility] MCV 86.0 79.0 - 98.0 FL LAB HEMETOLOGY METHOD 03/16/2024 10:57 AM [facility] MCH 29.9 27.0 - 32.0 pcg LAB HEMETOLOGY METHOD 03/16/2024 10:57 AM [facility] MCHC 34.8 32.0 - 37.0 g/dL LAB HEMETOLOGY METHOD 03/16/2024 10:57 AM [facility] RDW 11.9 11.0 - 15.0 % LAB HEMETOLOGY METHOD 03/16/2024 10:57 AM [facility] Platelets 323 130 - 400 K/mcL LAB HEMETOLOGY METHOD 03/16/2024 10:57 AM [facility] MPV 9.9 7.0 - 11.0 FL LAB HEMETOLOGY METHOD 03/16/2024 10:57 AM [facility] NRBC 0.0 <1.0 % LAB HEMETOLOGY METHOD 03/16/2024 10:57 AM [facility] NRBC Absolute 0.00 <0.10 K/mcL LAB HEMETOLOGY METHOD 03/16/2024 10:57 AM [facility] Neutrophils Relative 65.0 % LAB HEMETOLOGY METHOD 03/16/2024 10:57 AM [facility] Lymphocytes Relative 24.6 % LAB HEMETOLOGY METHOD 03/16/2024 10:57 AM [facility] Monocytes Relative 6.4 % LAB HEMETOLOGY METHOD 03/16/2024 10:57 AM [facility] Eosinophils Relative 2.7 % LAB HEMETOLOGY METHOD 03/16/2024 10:57 AM [facility] Basophils Relative 0.9 % LAB HEMETOLOGY METHOD 03/16/2024 10:57 AM [facility] Immature Granulocytes Relative 0.4 % LAB HEMETOLOGY METHOD 03/16/2024 10:57 AM [facility] Neutrophils Absolute 7.36(H) 1.50 - 7.00 K/mcL LAB HEMETOLOGY METHOD 03/16/2024 10:57 AM [facility] Lymphocytes Absolute 2.79 1.00 - 5.00 K/mcL LAB HEMETOLOGY METHOD 03/16/2024 10:57 AM [facility] Monocytes Absolute 0.72 0.20 - 1.00 K/mcL LAB HEMETOLOGY METHOD 03/16/2024 10:57 AM [facility] Eosinophils Absolute 0.31 0.00 - 0.50 K/mcL LAB HEMETOLOGY METHOD 03/16/2024 10:57 AM [facility] Basophils Absolute 0.10 0.00 - 0.20 K/mcL LAB HEMETOLOGY METHOD 03/16/2024 10:57 AM [facility] Immature Granulocytes Absolute 0.04(H) 0.00 - 0.03 K/mcL LAB HEMETOLOGY METHOD 03/16/2024 10:57 AM EST [facility] Blood Venous blood specimen / Unknown Venipuncture / Unknown 03/16/2024 10:42 AM EST 03/16/2024 10:52 AM EST Eloise Garber DO LAB BLOOD ORDERAB LES Performing Organization Address [facility]/ZIP Co de Phone Number [facility] [address] [place] [address], [place] [phone] * Triiodothyronine free (03/16/2024 10:42 AM EST) T3, Free 328 230 - 420 pcg/dL LAB CHEMISTRY METHOD 03/16/2024 3:49 PM EST [facility] Blood Venous blood specimen / Unknown Venipuncture / Unknown 03/16/2024 10:42 AM EST 03/16/2024 10:52 AM EST Rosa Laboy PA LAB BLOOD ORDE RABLES Performing Organization Address [facility]/RUST Co de Phone Number [facility] [address] [place] [address], [place] [phone] * Lipase (03/16/2024 10:42 AM EST) Only the most recent of2 resultswithin the time period is included. Lipase 38 13 - 75 unit/L LAB CHEMISTRY METHOD 03/16/2024 11:31 AM EST [facility] Blood Venous blood specimen / Unknown Venipuncture / Unknown 03/16/2024 10:42 AM EST 03/16/2024 10:52 AM EST Luxkrys Garber DO LAB BLOOD ORDERAB LES Performing Organization Address City/[facility]/ZIP Co de Phone Number [facility] [address] [place] [address], [place] [phone] * (ABNORMAL) Comprehensive metabolic panel (03/16/2024 10:42 AM EST) Only the most recent of2 resultswithin the time period is included. Sodium 133 133 - 145 mmol/L LAB CHEMISTRY METHOD 03/16/2024 11:33 AM [facility] Potassium 4.3 3.5 - 5.5 mmol/L LAB CHEMISTRY METHOD 03/16/2024 11:33 AM [facility] Chloride 102 96 - 110 mmol/L LAB CHEMISTRY METHOD 03/16/2024 11:33 AM [facility] CO2 29 21 - 32 mmol/L LAB CHEMISTRY METHOD 03/16/2024 11:33 AM [facility] Anion Gap 2(L) 3 - 11 LAB CHEMISTRY METHOD 03/16/2024 11:33 AM [facility] Glucose 201(H) 70 - 100 mg/dL LAB CHEMISTRY METHOD 03/16/2024 11:33 AM [facility] BUN 14 5 - 25 mg/dL LAB CHEMISTRY METHOD 03/16/2024 11:33 AM [facility] Creatinine 0.97 0.70 - 1.30 mg/dL LAB CHEMISTRY METHOD 03/16/2024 11:33 AM [facility] eGFR 103 >=60 mL/min/1. 73m2 LAB CHEMISTRY METHOD 03/16/2024 11:33 AM [facility] Comment:Calculation based on the??Chronic Kidney Disease Epidemiology Collaboration (CKD-EPI) equation refit??without adjustment for race. BUN/Creatinine Ratio 14.4 LAB CHEMISTRY METHOD 03/16/2024 11:33 AM [facility] Calcium 9.8 8.5 - 10.5 mg/dL LAB CHEMISTRY METHOD 03/16/2024 11:33 AM [facility] AST (SGOT) 15 10 - 42 unit/L LAB CHEMISTRY METHOD 03/16/2024 11:33 AM [facility] ALT (SGPT) 25 10 - 60 unit/L LAB CHEMISTRY METHOD 03/16/2024 11:33 AM EST [facility] Alkaline Phosphatase 81 42 - 121 unit/L LAB CHEMISTRY METHOD 03/16/2024 11:33 AM [facility] Total Protein 8.6(H) 6.0 - 8.0 g/dL LAB CHEMISTRY METHOD 03/16/2024 11:33 AM EST [facility] Albumin 4.5 3.2 - 5.0 g/dL LAB CHEMISTRY METHOD 03/16/2024 11:33 AM [facility] Total Bilirubin 0.6 0.0 - 1.4 mg/dL LAB CHEMISTRY METHOD 03/16/2024 11:33 AM [facility] Blood Venous blood specimen / Unknown Venipuncture / Unknown 03/16/2024 10:42 AM EST 03/16/2024 10:52 AM EST Luxkrys Winchester Jcarlos DO LAB BLOOD ORDERAB LES [facility] [address] [place] [address], * SUTURE REMOVAL (03/07/2024 9:41 AM EST) Narrative Jeanette Lara MA - 03/07/2024 9:41 AM EST Jeanette Lara MA ? 03/07/2024 ??9:41 AM Suture Removal Date/Time: 03/07/2024 9:41 AM Performed by: Jeanette Lara MA Authorized by: Nic Nieto MD ?? Consent: ??Consent obtained: ??Verbal ??Consent given by: ??Patient ??Alternatives discussed: ??No treatment [place] protocol: ??Patient identity confirmed: ??Verbally with patient Location: ??Location: ??Head/neck ??Head/neck location: ??Neck Procedure details: ??Wound appearance: ??No signs of infection and good wound healing Post-procedure details: ??Post-removal: ??No dressing applied ??Procedure completion: ??Tolerated Nic Nieto MD IN CLINIC/BEDSIDE OR DERABLES * Tissue Exam (02/22/2024 10:50 AM EST) Final Diagnosis Skin, right neck-biopsy: -EPIDERMAL INCLUSION CYST, RUPTURED 02/26/2024 12:45 PM EST [facility] Clinical Information Epidermal inclusion cyst L72.0 02/26/2024 12:45 PM EST [facility] Gross Description A. Neck, right neck: Labeled neck . Received in formalin is a 1.4 x 0.3 cm rudd-brown skin ellipse excised with depth of 0.8 cm. The cut surfaces display a 0.3 cm possible cyst containing a rudd-yellow friable substance. Door To Door Selling Agent sections are submitted in one cassette, to include the entirety of the possible cyst, three pieces. MARLEY 02/26/2024 12:45 PM EST [facility] Disclaimer Unless otherwise specified, all tissue is 10% NB formalin fixed and paraffin embedded. 02/26/2024 12:45 PM EST [facility] Tissue Neck structure / Unknown Non-blood Collection / Unknown 02/22/2024 10:50 AM EST 02/22/2024 11:21 AM EST Nic Nieto MD LAB PATHOLOGY ORDERA BLES [facility] [address] [place] [address], * (ABNORMAL) POCT Glucose, blood (02/06/2024 5:29 PM EST) Only the most recent of4 resultswithin the time period is included. Glucose POCT 277(H) 70 - 100 mg/dL 02/06/2024 5:30 PM EST [facility] Blood Capillary blood specimen / Unknown 02/06/2024 5:29 PM EST 02/06/2024 5:[address] MD LAB POINT OF CARE TE ST DOCKED DEVICE UNSOLICITED RESULTS Performing Organization Address [facility]/ZIP Co de Phone Number [facility] [address] [place] [address], [place] [phone] * (ABNORMAL) Lactate (02/06/2024 4:23 PM EST) Lactate 3.0(H) 0.4 - 2.0 mmol/L LAB CHEMISTRY METHOD 02/06/2024 5:03 PM EST [facility] Blood Venous blood specimen / Unknown Venipuncture / Unknown 02/06/2024 4:23 PM EST 02/06/2024 4:[address] MD LAB BLOOD ORDERABLES Performing Organization Address [facility]/ZIP Co de Phone Number [facility] [address] [place] [address], [place] [phone] * CT Abdomen Pelvis wo Contrast (02/06/2024 [...] Signed Date: 02/06/2024 16:08 ET Workstation ID: [id number] Transcribed By: Self Edit Transcribed Date: 02/06/2024 [...] a punctate nonobstructing lower pole right renal potykmfl19.1 cm from the skin. GASTROINTESTINAL TRACT: No [...] Signed Date: 02/06/2024 16:08 ET Workstation ID: [id number] Transcribed By: Self Edit Transcribed Date: 02/06/2024 16:[address] MD [facility] CT PROCEDURES * (ABNORMAL) Urinalysis with reflex microscopic (02/06/2024 7:28 AM EST) Specific [place] Urine 1.031(H) 1.003 - 1.030 LAB URINALYSIS - AUTOMATED METHOD 02/06/2024 7:59 AM [facility] pH, Urine 6.5 5.0 - 8.0 pH LAB URINALYSIS - AUTOMATED METHOD 02/06/2024 7:59 AM [facility] Leukocytes, Urine Negative Negative LAB URINALYSIS - AUTOMATED METHOD 02/06/2024 7:59 AM [facility] Nitrite, Urine Negative Negative LAB URINALYSIS - AUTOMATED METHOD 02/06/2024 7:59 AM [facility] Protein, Urine 30(A) <=Trace mg/dL LAB URINALYSIS - AUTOMATED METHOD 02/06/2024 7:59 AM [facility] Glucose, Urine >=1000(A) Negative mg/dL LAB URINALYSIS - AUTOMATED METHOD 02/06/2024 7:59 AM [facility] Ketones, Urine Trace(A) Negative mg/dL LAB URINALYSIS - AUTOMATED METHOD 02/06/2024 7:59 AM [facility] Urobilinogen , Urine 1.0 0.2 - 1.0 mg/dL LAB URINALYSIS - AUTOMATED METHOD 02/06/2024 7:59 AM [facility] Bilirubin, Urine Negative Negative LAB URINALYSIS - AUTOMATED METHOD 02/06/2024 7:59 AM [facility] Blood, Urine Negative Negative LAB URINALYSIS - AUTOMATED METHOD 02/06/2024 7:59 AM [facility] RBC, Urine 6.4(H) 0 - 4 /HPF LAB URINALYSIS - AUTOMATED METHOD 02/06/2024 7:59 AM [facility] WBC, Urine 1.6 0 - 4 /HPF LAB URINALYSIS - AUTOMATED METHOD 02/06/2024 7:59 AM [facility] Squamous Epithelial, Urine 33 0 - 60 /LPF LAB URINALYSIS - AUTOMATED METHOD 02/06/2024 7:59 AM [facility] Bacteria, Urine Negative Negative /HPF LAB URINALYSIS - AUTOMATED METHOD 02/06/2024 7:59 AM [facility] Hyaline Casts, Urine 0.4 0 - 3 /LPF LAB URINALYSIS - AUTOMATED METHOD 02/06/2024 7:59 AM [facility] Urine Urine specimen obtained by clean catch procedure / Unknown Non-blood Collection / Unknown 02/06/2024 7:28 AM EST 02/06/2024 7:46 AM EST Lamonte Humphreys MD LAB URINE ORDERABLES Performing Organization Address [facility]/ZIP Co de Phone Number [facility] [address] [place] [address], [place] [phone] * Menard urine culture tube (02/06/2024 7:26 AM EST) Pathologist [facility] Extra Tube Hold for add-ons. 02/06/2024 9:02 AM EST [facility] Comment:Auto resulted. Urine Urine specimen obtained by clean catch procedure / Unknown 02/06/2024 7:26 AM EST 02/06/2024 7:53 AM EST Lamonte Humphreys MD LAB URINE ORDERABLES Performing Organization Address [facility]/[place] Co de Phone Number [facility] [address] [place] [address], [place] [phone] * Beta hydroxybutyrate (02/06/2024 7:25 AM EST) [facility] Beta-Hydroxybu tyrate 2.1 0.2 - 2.8 mg/dL LAB CHEMISTRY METHOD 02/06/2024 8:17 AM EST [facility] Blood Venous blood specimen / Unknown Venipuncture / Unknown 02/06/2024 7:25 AM EST 02/06/2024 7:47 AM EST Lamonte Humphreys MD LAB BLOOD ORDERABLES Performing Organization Address [facility] Co de Phone Number [facility] [address] [place] [address], [place] [phone] * (ABNORMAL) Sedimentation rate, automated (02/06/2024 7:25 AM EST) [facility] Sed Rate 27(H) 0 - 15 mm/hr LAB HEMETOLOGY METHOD 02/06/2024 2:50 PM EST [facility] Blood Venous blood specimen / Unknown Venipuncture / Unknown 02/06/2024 7:25 AM EST 02/06/2024 7:[address] MD LAB BLOOD ORDERABLES Performing Organization Address City/[facility]/ZIP Co de Phone Number [facility] [address] [place] [address], [place] [phone] * (ABNORMAL) C-reactive protein (02/06/2024 7:25 AM EST) C-Reactive Protein 0.80(H) <=0.50 mg/dL LAB CHEMISTRY METHOD 02/06/2024 3:27 PM EST [facility] Blood Venous blood specimen / Unknown Venipuncture / Unknown 02/06/2024 7:25 AM EST 02/06/2024 7:[address] MD LAB BLOOD ORDERABLES Performing Organization Address [facility]/ZIP Co de Phone Number [facility] [address] [place] [address], [place] [phone] * (ABNORMAL) Osmolality (02/06/2024 7:25 AM EST) Osmolality Kristine 304(H) 280 - 300 mOsm/kg LAB CHEMISTRY METHOD 02/06/2024 8:55 AM EST [facility] Blood Venous blood specimen / Unknown Venipuncture / Unknown 02/06/2024 7:25 AM EST 02/06/2024 7:47 AM EST Lamonte Humphreys MD LAB BLOOD ORDERABLES Performing Organization Address City/[facility]/ZIP Co de Phone Number [facility] [address] [place] [address], [place] [phone] * (ABNORMAL) Magnesium (02/06/2024 7:25 AM EST) Magnesium 1.7(L) 1.9 - 2.6 mg/dL LAB CHEMISTRY METHOD 02/06/2024 8:17 AM EST [facility] Blood Venous blood specimen / Unknown Venipuncture / Unknown 02/06/2024 7:25 AM EST 02/06/2024 7:47 AM EST Lamonte Humphreys MD LAB BLOOD ORDERABLES [facility] [address] [place] [address], * (ABNORMAL) Venous blood gas (02/06/2024 7:25 AM EST) pH, Terence 7.47(H) 7.32 - 7.42 pH 02/06/2024 7:50 AM [facility] pCO2, Terence 36(L) 41 - 51 mmHg 02/06/2024 7:50 AM [facility] pO2, Terence 35 25 - 40 mmHg 02/06/2024 7:50 AM [facility] HCO3, Venous 26.2(H) 22.0 - 26.0 mmol/L 02/06/2024 7:50 AM [facility] O2 Sat, Terence 70.6 % 02/06/2024 7:50 AM [facility] Base Excess, Terence 2.7(H) -2.0 - 2.0 mmol/L 02/06/2024 7:50 AM [facility] Blood Venous blood specimen / Unknown Venipuncture / Unknown 02/06/2024 7:25 AM EST 02/06/2024 7:47 AM EST Lamonte Humphreys MD LAB BLOOD ORDERABLES [facility] [address] [place] [address], * CT Neck Soft Tissue w Contrast [...] Mosley MD on 01/31/2024 02:57:[address] PROCEDURES * (ABNORMAL) Basic metabolic panel (01/31/2024 12:49 AM EST) Sodium 137 133 - 145 mmol/L LAB CHEMISTRY METHOD 01/31/2024 1:26 AM [facility] Potassium 4.1 3.5 - 5.5 mmol/L LAB CHEMISTRY METHOD 01/31/2024 1:26 AM [facility] Chloride 104 96 - 110 mmol/L LAB CHEMISTRY METHOD 01/31/2024 1:26 AM [facility] CO2 27 21 - 32 mmol/L LAB CHEMISTRY METHOD 01/31/2024 1:26 AM [facility] Anion Gap 6 3 - 11 LAB CHEMISTRY METHOD 01/31/2024 1:26 AM [facility] Glucose 280(H) 70 - 100 mg/dL LAB CHEMISTRY METHOD 01/31/2024 1:26 AM [facility] BUN 14 5 - 25 mg/dL LAB CHEMISTRY METHOD 01/31/2024 1:26 AM [facility] Creatinine 0.91 0.70 - 1.30 mg/dL LAB CHEMISTRY METHOD 01/31/2024 1:26 AM [facility] eGFR 111 >=60 mL/min/1. 73m2 LAB CHEMISTRY METHOD 01/31/2024 1:26 AM [facility] Comment:Calculation based on the??Chronic Kidney Disease Epidemiology Collaboration (CKD-EPI) equation refit??without adjustment for race. BUN/Creatinine Ratio 15.4 LAB CHEMISTRY METHOD 01/31/2024 1:26 AM [facility] Calcium 9.5 8.5 - 10.5 mg/dL LAB CHEMISTRY METHOD 01/31/2024 1:26 AM [facility] Blood Venous blood specimen / Unknown Venipuncture / Unknown 01/31/2024 12:49 AM EST 01/31/2024 1:00 AM EST Nikole WADE LAB BLOOD ORDERABLES [facility] [address] [place] [address], [place] [phone] * XR Lumbar Spine 2-3 Views (01/26/2024 [...] Signed Date: 01/26/2024 12:23 ET Workstation ID: [id number] Transcribed By: Self Edit Transcribed Date: 01/26/2024 12:20 ET Narrative 01/26/2024 12:23 PM EST History: Low back pain. Toutle pop when bending over 2 days ago. [...] MD - 01/26/2024 History: Low back pain. Toutle pop when bending over 2 days ago. Comparison: CT abdomen/pelvis 11/02/23 Findings: AP, lateral and coned lateral views. There are 4 nglepq-mywkbdyjuraeo-pylf vertebra and a transitional lumbosacral segment which [...] Signed Date: 01/26/2024 12:23 ET Workstation ID: [id number] Transcribed By: Self Edit Transcribed Date: 01/26/2024 12:20 ET José Miguel King DO IMG XR PROCEDURES from Last 3 Months Care Teams In Flight Refueling Manager Relationship Specialty Start Date End Date Matilde Calabrese MD [address] [facility] 1 [place] [address] PCP - General 11/22/23
--- OUTSIDE RECORDS SUMMARY | 2024-03-28 13:00 | XMS_ITS | Encounter Summary ---
Author Organization [employer] Address [address] [facility] 7t [place] [address] Care Team Providers Care Order Schedule Clerk Name Role Phone Matilde Calabrese MD Primary Care Provide r Kourtney Su PharmD Unavailable [phone] Cecily Pinedo RN Unavailable [phone] Encounter Details Date Type Department Care Team (Late st Contact Info) Description 11/23/2023 Orders Only [facility] MED & PEDS [address] [place], [place] [phone] Alexandre Sandoval MD [address] [place] [address] Type 2 diabetes mellitus with hyperglycemia, without long-term current use of insulin ([facility]) Social History Tobacco Use Types [...] Description 04/09/2024 10:30 AM EST Medication Management [facility] [address] [place] [address] Kourtney Su PharmD [address] [place] [address] 05/06/2024 10:00 AM EDT Office Visit [facility] [address] [place] [address] Matilde Calabrese MD [address] [place] [address] 06/03/2024 11:30 AM EDT Office Visit [facility]S [address] [place] [address] Rodger Cole MD [address] [place] [address] documented as of this encounter Visit Diagnoses Diagnosis Type 2 diabetes mellitus with hyperglycemia, without long-term current use of insulin ([facility]) documented in this encounter Care Teams Order Schedule Clerk Relationship Specialty Start Date End Date Matilde Calabrese MD [address] [place] [phone] PCP - General Internal Medicine 11/23/23 Kourtney Su PharmD [address] [place] [address] Pharmacist Internal Medicine 12/05/23 Cecily Pinedo RN [address] [place] [address] L[place] Bhatti [address] Rubber Covering Machine OperatorSenior Principal Software Engineer 01/08/24 [facility] 01/09/24 documented as of this encounter
--- OUTSIDE RECORDS SUMMARY | 2024-03-28 13:00 | XMS_ITS | Encounter Summary ---
Author Organization [facility] [employer] Address [address] [facility] 7t [place] [address] Care Team Providers Care Kiln Labourer Name Role Phone Matilde Calabrese MD Primary Care Provide r Kourtney Su PharmD Unavailable [phone] Cecily Pinedo RN Unavailable [phone] Reason for Visit * Reason Onset Date Comments Call Back Request 02/29/2024 Encounter Details Date Type Department Care Team ([facility] Contact Info) Description 02/29/2024 Telephone [facility] MED[facility]INE [address] [place], [place] [phone] Matilde Calabrese MD [address] [place] [address] Call Back Request Social History Tobacco Use [...] 10:30 AM EST Medication Management [facility] MED[facility]INE [address] [place] [address] Kourtney Su, PharmD [address] [place] [address] 05/06/2024 10:00 AM EDT Office Visit [facility] [address] [place] [address] Matilde Calabrese MD [address] [place] [address] 06/03/2024 11:30 AM EDT Office Visit [facility] MED & PEDS [address] [place] [address] Rodger Cole MD 505 [place] [address] documented as of this encounter Visit Diagnoses Not on filedocumented in this encounter Additional Health Concerns Assessment Noted Time PHQ-9 Depression Total Score: 18 024 9:55 AM EST documented as of this encounter Care Teams Kiln Labourer Relationship Specialty Start Date End Date Matilde Calabrese MD [address] [place] [address] PCP - General Internal Medicine 11/23/23 Kourtney Su PharmD [address] [place] [address] Pharmacist Internal Medicine 12/05/23 Cecily Pinedo, ROSA [address] [place] [address] Spiritual CounselorFinal Assembler Boat 01/08/24 [facility] 01/09/24 documented as of this encounter
--- OUTSIDE RECORDS SUMMARY | 2024-03-28 13:00 | XMS_ITS | Encounter Summary ---
Author Organization [employer] Address [address] 7t [place] [address] Care Team Providers Care Wild Animal Caretaker Name Role Phone Matilde Calabrese MD Primary Care Provide r Kourtney Su PharmD Unavailable [phone] Cecily Pinedo RN Unavailable [phone] Reason for Visit * Reason Comments Toe Pain Encounter Details Date Type Department Care Team ([facility] st Contact Info) Description 03/03/2024 10:00 AM EST Office Visit [facility] [address] [place] [address] Charity Luna DO [address] [place] [address] Right foot pain (Primary Dx) Social History [...] presents for Sick Visit. He comes to [place] c/o pain in the middle of his [...] pain. He has a foot doctor in [place] that he saw a couple mos ago for his nail care and thinks that he has an appt next week. 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 used: No Pain Location: R foot Severity: [...] hyperglycemia, with long-term current use of insulin ([facility]) Obstructive sleep apnea syndrome Morbid obesity ([facility]) Mood disorder ([facility]) Gout Flat foot Essential (primary) hypertension Hidradenitis suppurativa of multiple sites Acute ankle pain Paraspinal muscle spasm JASBIR (acute kidney injury) ([facility]) Acquired hypothyroidism Hospital discharge follow-up Cellulitis Chronic right shoulder pain Mixed anxiety and depressive disorder Nail disease Diabetic polyneuropathy associated with type 2 diabetes mellitus ([facility]) Bilateral wrist pain LLQ abdominal pain Abscess [...] podiatry next week as scheduled -advised contact [facility] if sx change or worsen, he [...] Disp: 60 g, Rfl: 2 Continuous Glucose Band And Cuff Cutter (FreeStyle Cherelle 2 [place]) device, Scan sensor every 8 hours, Disp: [...] Description 04/09/2024 10:30 AM EST Medication Management [facility] [address] [place] [address] Kourtney Su, PharmD [address] [place] [address] 05/06/2024 10:00 AM EDT Office Visit [facility] [address] [place] [address] Matilde Calabrese MD [address] [place] [address] 06/03/2024 11:30 AM EDT Office Visit [facility] MED [facility] P[facility]S [address] [place] [address] Rodger Cole MD [address] [place] Bhatti [address] documented as of this encounter Procedures Procedure Name Priority Date/Time Associated Diagnosis Comments XR FOOT 3+ VIEWS RIGHT STAT 03/03/2024 10:49 AM EST Right foot pain documented in this encounter Results * XR Foot 3+ Views Right (03/03/2024 10:49 AM EST) Anatomical Region Laterality Modality Lower Extremities, Foot Right Radiogra phic Imaging 03/03/2024 10:4 9 AM EST Narrative 03/03/2024 11:09 AM EST ?[facility] ?[address] ?[place]re[place] [address] ?XRay Report ? Signed ? Patient: Anderson,Raji ?MR#: [id number] ? : 1985 ?Acct:[id number] ? Age/Sex: 38 / M ?ADM Date: 03/03/24 ? Loc: HO.HHCX ? Attending Dr: Charity Luna DO ? Ordering Physician: Charity Luna DO ?? Date of Service: 03/03/24 ?? Procedure(s): XR foot RT min 3V ?? Accession Number(s): [id number] ? cc: Charity Luna DO ? EXAMINATION: [...] DD/ 1049 ? TD/TT: 03/03/24 1058 ? Steam Pressure Chamber Operator: ? Procedure Note Rich, Image - 03/03/2024 [facility] [address] [place] [address] XRay Report Signed Patient: Cedrick Anderson#: [id number] : 1985Acct:[id number] Age/Sex: 38 / MADM Date: 03/03/24 Loc: HO.HHCX Attending Dr: Charity Luna DO Ordering Physician: Charity Luna DO Date of Service: 03/03/24 Procedure(s): XR foot RT min 3V Accession Number(s): [id number] cc: Charity Luna DO EXAMINATION: XR FOOT [...] 03/03/24 1106 DD/ 1049 TD/TT: 03/03/24 1058 Steam Pressure Chamber Operator: Charity Luna DO IMG XR PROCEDURES Edited Res ult - Final documented in this encounter Visit Diagnoses Diagnosis Right foot pain- Primary Pain in soft tissues of limb documented in this encounter Additional Health Concerns Assessment Noted Time PHQ-9 Depression Total Score: 18 024 9:55 AM EST documented as of this encounter Care Teams Wild Animal Caretaker Relationship Specialty Start Date End Date Matilde Calabrese MD [address] [place] [address] PCP - General Internal Medicine 11/23/23 Kourtney Su PharmD [address] [place] [address] Pharmacist Internal Medicine 12/05/23 Cecily Pinedo RN [address] [place] [address] Optical Store ManagerSalt Lifter 01/08/24 [facility] 01/09/24 documented as of this encounter
--- OUTSIDE RECORDS SUMMARY | 2024-03-28 13:00 | XMS_ITS | Encounter Summary ---
Author Organization [employer] Address 75 [facility] 7t [place] [address] Care Team Providers Care Arc Welder Name Role Phone Matilde Calabrese MD Primary Care Provide r Kourtney Su PharmD Unavailable [phone] Cecily Pinedo RN Unavailable [phone] Reason for Visit * Reason Comments Care Coordination SDOH/appt reminders Encounter Details Date Type Department Care Team (Latest Contact Info) Description 03/06/2024 Patient Outreach [facility] MEDICINE [address] [place] [address] Matilde Calabrese MD [address] [place] [address] Care Coordination (SDOH/appt reminders) Social History Tobacco [...] an eviction letter due to owing about [id number] due to patient losing his job, patient stated he already received help though way [employer]ers and does not qualify for more help. I asked patient he is not too sure where he will go yet but, if need be, will go to a detention but is worried about his pets. I let him know that there is a new detention opening in [place] that will accept pets. CHW will send all resources through mail and continue to help with housing situation. No further questions or concerns. CHW reinforced direct contact information or KENDRA for any additional questions or concerns and extended clinic hours on Mondays and Wednesdays, and Walk-In Urgent Care Located in [facility] of [facility]. Patient provided with after-hours line for [facility], , which offer nighttime triage service and option to transfer to electronics research engineer provider [facility]. Patient verbalizes understanding, and able to repeat back to fiction and nonfiction prose writer. A follow up call will be placed within 10 days, patient agrees with plan. documented in this encounter Plan of Treatment Upcoming Encounters Date Type Department Care Team (Late st Contact Info) Description 04/09/2024 10:30 AM EST Medication Management [facility]INE [address] [place] [address] Kourtney Su PharmD [address] [place] [address] 05/06/2024 10:00 AM EDT Office Visit [facility]INE [address] [place] [address] Matilde Calabrese MD [address] [place] [address] 06/03/2024 11:30 AM EDT Office Visit [facility] MED & PEDS [address] [place], [place] [phone] Rodger Cole MD [address] [place], [place] [phone] documented as of this encounter Visit Diagnoses Not on filedocumented in this encounter Additional Health Concerns Assessment Noted Time PHQ-9 Depression Total Score: 18 024 9:55 AM EST documented as of this encounter Care Teams Arc Welder Relationship Specialty Start Date End Date aMtilde Calabrese MD [address] [place] [address] PCP - General Internal Medicine 11/23/23 Kourtney Su PharmD [address] [place] [address] Pharmacist Internal Medicine 12/05/23 Cecily Pinedo RN [address] [place] [address] Legal ConsultantResidence Supervisor 01/08/24 [facility] 01/09/24 documented as of this encounter
--- OUTSIDE RECORDS SUMMARY | 2024-03-28 13:00 | XMS_ITS | Encounter Summary ---
Author Organization [employer] Address 75 [facility] 7t [place] [address] Care Team Providers Care Machine Taper Name Role Phone Matilde Calabrese MD Primary Care Provide r Kourtney Su PharmD Unavailable [phone] Cecily Pinedo RN Unavailable [phone] Reason for Visit * Reason Comments Transition Of Care (Tcm) Encounter Details Date Type Department Care Team ([facility] st Contact Info) Description 03/11/2024 Patient Outreach [facility] MEDICINE [address] [place] [address] Matilde Calabrese MD [address] [place] [address] Transition Of Care (Tcm) Social History Tobacco [...] 03/11/24 0849 Hospital Discharges and Admission for [facility] Type of Visit Emergency Department Date of Admission/Visit 03/09/24 (10:05pm) Date of Discharge 03/10/24 (10am) Facility [facility] Diagnosis Migraine with aura, not intractable, without status migrainosus Disposition Discharged Home * Eli Ramsay RN - 03/11/2024 8:49 AM EST Transition of Care Note Raji is going through a recent transition of care. Hospital Discharges and Admission for PCM Type of Visit: Emergency Department Date of Admission/Visit: 03/09/24 Date of Discharge: 03/09/24 Facility: [facility] Diagnosis: Ocular migraine Disposition: Discharged Home Follow-Up Actions Follow-Up Needed: Provider appointment Follow-Up Outcome: Spoke to Patient Initial Contact Date: 03/11/24 [facility] Recent Visits Date Type Provider Dept 03/03/24 Office Visit Charity Luna DO [facility] 02/15/24 Office Visit BRITTANY Mott [facility] Peds 02/02/24 Office Visit Wendy Wright NP [facility] 01/08/24 Office Visit Erin Bueno MD [facility] 12/27/23 Office Visit Matilde Hudson MD [facility] Medicine 11/14/23 Office Visit Matilde Hudson MD [facility] Medicine 03/20/23 Office Visit Matilde Hudson MD [facility] Medicine Showing recent visits within past 540 days with a meds authorizing provider and meeting all other requirements Today's Visits Date Type Provider Dept 03/11/24 Appointment Christian Fuchs MD [facility] Medicine Showing today's visits with a meds authorizing provider and meeting all other requirements Future Appointments Date Type Provider Dept 03/18/24 Appointment Kourtney Su PharmD [facility] Medicine Showing future appointments within next 150 days with a meds authorizing provider and meeting all other requirements TC placed to patient [phone] to status check. Patient reports his s/s [...] ED whichwas WNL. Patient denies having an gis analyst developer but is scheduled to see one on 05/20/24. Patient scheduled for re-evaluation for today at 3pm with Dr. Little d/t continued s/s. Patient to f/u PRN. documented in this encounter Plan of Treatment Upcoming Encounters Date Type Department Care Team (Late st Contact Info) Description 04/09/2024 10:30 AM EST Medication Management [facility] MEDICINE [address] [place] [address] Kourtney Su, Samara [address] [place] [address] 05/06/2024 10:00 AM EDT Office Visit [facility] MEDICINE [address] [place] [address] Matilde Calabrese MD [address] [place], [place] [phone] 06/03/2024 11:30 AM EDT Office Visit [facility] MED & PEDS [address] [place], [place] [phone] Rodger Cole MD 505 [place], [place] [phone] documented as of this encounter Visit Diagnoses Not on filedocumented in this encounter Additional Health Concerns Assessment Noted Time PHQ-9 Depression Total Score: 18 024 9:55 AM EST documented as of this encounter Care Teams Machine Taper Relationship Specialty Start Date End Date Matilde Calabrese MD [address] [place] [address] PCP - General Internal Medicine 11/23/23 Kourtney Su, EmmaD [address] [place] [address] Pharmacist Internal Medicine 12/05/23 Cecily Pinedo, ROSA [address] [place] [address] Loans OfficerSecurity Orderly 01/08/24 [facility] 01/09/24 documented as of this encounter
--- OUTSIDE RECORDS SUMMARY | 2024-03-28 13:01 | XMS_ITS | Encounter Summary ---
Author Organization [employer] Address [address] [facility] [address] [address] 7t [place] [address] Care Team Providers Care Pharmacy Tech Customer Service Name Role Phone Matilde Calabrese MD Primary Care Provide r Kourtney Su PharmD Unavailable [phone] Cecily Pinedo RN Unavailable [phone] Encounter Details Date Type Department Care [...] ([facility] st Contact Info) Description 04/09/2024 10:30 AM EST Medication Management [facility] MEDICINE [address] [place] [address] Kourtney Su, PharmD [address] [place] [address] 05/06/2024 10:00 AM EDT Office Visit [facility] MEDICINE [address] [place] [address] Matilde Calabrese MD [address] [place] [address] 06/03/2024 11:30 AM EDT Office Visit [facility] MED & PEDS 505 [place] [address] Rodger Cloe MD [address] [place] [address] documented as of this encounter Visit Diagnoses Not on filedocumented in this encounter Additional Health Concerns Assessment Noted Time PHQ-9 Depression Total Score: 18 024 9:55 AM EST documented as of this encounter Care Teams Pharmacy Tech Customer Service Relationship Specialty Start Date End Date Matilde Calabrese MD [address] [place] [address] PCP - General Internal Medicine 11/23/23 Kourtney Su PharmD [address] [place] [address] Pharmacist Internal Medicine 12/05/23 Cecily Pinedo RN [address] [place] [address] Trustee Of EstatePulley Maintainer 01/08/24 [facility] 01/09/24 documented as of this encounter
--- OUTSIDE RECORDS SUMMARY | 2024-03-28 13:01 | XMS_ITS | Encounter Summary ---
Author Organization [employer] Address [address] [facility] 7t [place] [address] Care Team Providers Care Manager Technology Name Role Phone Matilde Calabrese MD Primary Care Provide r Kourtney Su PharmD Unavailable [phone] Cecily Pinedo RN Unavailable [phone] Encounter Details Date Type Department Care Team (Late st Contact Info) Description 01/31/2024 Orders Only [facility] [address] [place] [address] Provider, MD Ari Social History Tobacco Use Types Packs/Day Years [...] EST Medication Management [facility] MED[facility]INE [address] [place] [address] Kourtney Su, PharmD [address] [place] [address] 05/06/2024 10:00 AM EDT Office Visit [facility] [address] [place] [address] Matilde Calabrese MD [address] [place] [address] 06/03/2024 11:30 AM EDT Office Visit [facility]EDS 505 [place], [place] [phone] Rodger Cole MD 505 [place] [address] documented as of this encounter Procedures Procedure [...] as of this encounter Care Teams Manager Technology Relationship Specialty Start Date End Date Matilde Calabrese MD [address] [place] [address] PCP - General Internal Medicine 11/23/23 Kourtney Su PharmD [address] [place] [address] Pharmacist Internal Medicine 12/05/23 Cecily Pinedo RN [address] [place] [address] Air Crew MemberGrinding Machine Operator 01/08/24 [facility] 01/09/24 documented as of this encounter
== END 2024-03-28 15:21 | disposition home or self-care (01) ==
PROVIDERS: PCP Internal Medicine; Visit Provider Internal Medicine Nephrology
DX: I10 Essential (primary) hypertension (principal)
CPT/HCPCS: 99214

== ENCOUNTER → 2024-03-28 11:58 | Outpatient (BNVA) | payer MEDICAID, SELFPAY | PROVIDERS: PCP Internal Medicine; Visit Provider Internal Medicine Nephrology | DX: I10 Essential (primary) hypertension (principal) | CPT/HCPCS: 99212 ==

== ENCOUNTER 2024-05-06 08:43 | Outpatient (AMB) | payer MEDICAID, SELFPAY ==
[2024-05-06 08:48] VITALS: BMI 42.4
--- NOTE | 2024-05-06 08:48 | MHC.OFFVIS ---
Vital Signs 05/06/24 08:48 Height 5 ft 8 in Weight 279 lb BMI 42.4 Intake Visit Reasons: HELPER ELECTRICAL/PCP referral for Leg swelling Intake Note: HELPER ELECTRICAL/PCP referral for LE swelling, Right LE worse than Left LE. Pt states its numb & cold as well but does have neuropathy. Noticed it starting over the past year, recently dx w/ diabetes. Director Dietetics Department Required: No Accompanied by: Self / Same As Patient Allergies ibuprofen Allergy (Intermediate, Verified 05/06/24 08:52) Unknown Iodinated Contrast Media Allergy (Intermediate, Verified 05/06/24 08:52) Unknown HPI HPI HELPER ELECTRICAL/PCP referral for Leg swelling: Details: Raji, a pleasant 38-year-old male patient, is presenting today on a referral from his PCP for bilateral lower extremity swelling, right more than left. Complaints include pain, swelling of lower extremities, cramping, fatigue, and heaviness of the lower extremities. It has been affecting their daily activities including walking, standing, and physical activity. It is noted more so in the right leg. He has a newly diagnosed diabetic in his having concerns with the neuropathy; his latest A1c on 03/21/2024 is 9.2%. He is a former smoker, quit approximately 2 years ago. He states he had recently within the last year had a infection with an ingrown toenail on the left great toe; he almost lost it but was able to be saved with IV antibiotics and wound debridement. He has had not had any concerns with it since. He states he has not had any major injuries to either foot; he does note he did have a hairline fracture in 1 of his feet when he was a teenager, he does not remember which foot. Patient denies any previous venous surgery or injections. Patient denies any history of DVT/ PE. Patient denies any history of phlebitis. Trial of compression includes - compression stockings with some relief They now present for vascular evaluation regarding their varicose veins. 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, 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 Review of Systems Const Reports as per HPI and Denies weakness ENT Reports Normal hearing present and Denies dizziness Card Reports as per HPI, Denies chest pain, Denies chest pain at rest, Denies chest pain with activity, Denies dyspnea and Denies dyspnea on exertion Resp Reports as per HPI, Denies cough, Denies dyspnea and Denies dyspnea on exertion GI Reports as per HPI, Denies abdominal pain, Denies nausea and Denies vomiting Musc Denies numbness Skin/Breast Reports as per HPI, Denies erythema and Denies wounds Neuro Reports Normal hearing present, Denies dizziness, Denies numbness, Denies Sensory deficit (Neuro) and Denies weakness Psych Reports no additional complaints Endo Reports no additional complaints Physical Exam Vital Signs: BMI result Body Mass Index 42.4 Const General: healthy appearing and no acute distress Orientation/consciousness: patient oriented x3 HEENT Head: Yes normal to inspection Ears: hearing grossly normal bilaterally Mouth: Normal oral and palatal mucosa present Resp Effort & Inspection: normal respiratory effort and able to speak in complete sentences Auscultation: clear to auscultation bilaterally Cardio Jugular venous distension: no JVD Rate: regular rate Rhythm: regular rhythm Heart sounds: S1 normal heart sound present and S2 normal heart sound present Bruits: no abdominal aortic bruits, no carotid bruits, no femoral bruits and no renal bruits Peripheral pulses: Peripheral pulses 2+ throughout GI Inspection: Yes normal to inspection Palpation (GI): No Abdominal aortic bruit present Skin General skin exam: no rashes or lesions noted Wounds: no wounds Hair: normal Neuro General: patient oriented x3 Cranial nerves: Yes Normal hearing present Cognition (Neuro): normal cognition Gait exam (Neuro): Normal gait present Motor exam (neuro): 5/5 motor strength present throughout Sensory Exam: No Sensory deficit (Neuro) Extrem Other: Bilateral lower extremities: +1 peripheral edema noted. Discoloration noted on the feet. Palpable DP and PT pulses. No varicosities noted. CEAP: C - 3/4 E - primary A - superficial P - reflux General: Yes normal to inspection, Yes full ROM, Yes capillary refill normal and Yes normal gait Assessment & Plan Assessment & Plan (1) Varicose veins of both lower extremities with inflammation: Code(s): I83.11 - Varicose veins of right lower extremity with inflammation; I83.12 - Varicose veins of left lower extremity with inflammation Category: Medical Plan: Raji is presenting today on a referral from his PCP for bilateral lower extremity swelling, for longer than a year. In short, the patient has evidence of venous insufficiency. I have discussed the pathophysiology with the patient. In addition I have provided informational material regarding venous disease to the patient. We have discussed conservative measures including compression, elevation, and exercise. We are able to provide him with compression stockings, and discussed with him that he can wear them up to 8-12 hours a day. I have taken the liberty of ordering venous insufficiency testing with the patient. They will follow up with me after testing. The patient had an opportunity to ask questions regarding the treatment plan. All questions were answered. Imaging studies, laboratory studies and physical exam results were discussed and reviewed in detail. No major barriers to understanding were identified. The patient expressed understanding and agreement with the above treatment plan. The patient is aware they should contact our office by phone for worsening of the current condition or the appearance of new symptoms. Thank you for allowing me to participate in the vascular care of this patient. If you have any questions or concerns regarding the treatment for the above condition please do not hesitate to contact me. The office telephone contact is [phone]. This note is constructed using voice recognition software. While every effort has been made to ensure accuracy, closing specialist errors may have been included. Thank you for allowing me to participate in the care of your patient. Yours sincerely, SHERI Collado Orders: Orders US venous duplex LE BI 1 Week I83.11 - Varicose veins of right lower extremity with inflammation, I83.12 - Varicose veins of left lower extremity with inflammation Coding Level of Care Code New Pt Level 4 (47374) Diagnoses Varicose veins of both lower extremities with inflammation I83.11; I83.12
--- OUTSIDE RECORDS SUMMARY | 2024-05-06 09:03 | XMS_ITS | Encounter Summary ---
Author Organization [employer] Address [address] [facility] 7t [place] [address] Care Team Providers Care Director Visual Name Role Phone Alexandre Sandoval MD Primary Care Prov ider Matilde Calabrese MD Primary Care Provide r Kourtney Su PharmD Unavailable Cecily Pinedo RN Unavailable [phone] Cecily Pinedo RN Unavailable [phone] Reason for Visit * Reason Comments Med Change Request Encounter Details Date Type Department Care Team (Late st Contact Info) Description 05/23/2022 Refill [facility] MED & PEDS [address] [place] [address] Alexandre Sandoval MD [address] [place] [address] Social History Tobacco Use Types Packs/Day Years Used Date Smoking Tobacco: Never Assessed Sex and Gender Information Value Date Recorded Sex Assigned at Male 12/19/2021 10:34 AM EDT Legal Sex Male 10:34 AM EDT Gender Identity Male 12/19/2021 10:34 AM EDT Sexual Orientation Straight 12/19/2021 10 :34 AM EDT documented as of this encounter Miscellaneous Notes * Telephone Encounter - Alexanrde Moe MD - 05/25/2022 8:49 AM EDT Changed to pen documented in this encounter Plan of Treatment Upcoming Encounters Date Type Department Care Team (Late st Contact Info) Description 05/07/2024 10:30 AM EDT Clinical Support [address] [address] 06/02/2024 10:30 AM EDT Medication Management [address] [address] Kourtney Su, EmmaD [address] [place] [address] 06/03/2024 11:30 AM EDT Office Visit [facility] MED & PEDS [address] [place] [address] Rodger Cole MD [address] [place] [address] 06/23/2024 11:30 AM EDT Office Visit [address] [address] Matilde Calabrese MD [address] [place] [address] documented as of this encounter Visit Diagnoses Not on filedocumented in this encounter Care Teams Director Visual Relationship Specialty Start Date End Date Alexandre Sandoval MD [address] [place] [address] PCP - General Internal Medicine 07/20/19 11/22/23 Matilde Calabrese MD [address] [place] [address] PCP - General Internal Medicine 11/23/23 Kourtney Su, PharmD [address] [place] [address] Pharmacist Internal Medicine 12/05/23 Cecily Pinedo RN [address] [place] [address] Meat MolderProcurement Director 01/08/24 04/15/24 Cecily Pinedo RN [address] [place] [address] Meat MolderProcurement Director 04/29/24 [facility] 01/09/24 documented as of this encounter
--- OUTSIDE RECORDS SUMMARY | 2024-05-06 09:04 | XMS_ITS | Encounter Summary ---
Author Organization [employer] Address 75 [facility] 7t [place] [address] Care Team Providers Care College Scouting Coordinator Name Role Phone Matilde Calabrese MD Primary Care Provide r Kourtney Su PharmD Unavailable [phone] Cecily Pinedo RN Unavailable [phone] Reason for Visit * Reason Onset Date Comments Durable Medical Equipment 04/09/2024 DME: C ompression Stockings Encounter Details Date Type Department Care Team ([facility] st Contact Info) Description 04/09/2024 Telephone [facility] MEDICINE [address] [place] [address] Kourtney Su, PharmD [address] [place] [address] Durable Medical Equipment (DME: Compression Stockings) Social History Tobacco Use Types Packs/Day Years [...] encounter Miscellaneous Notes * Telephone Encounter - Tobias Jo MA - 04/21/2024 10:35 AM EST DME has been signed by the PCP and faxed. Form is sent in for scanning. * Telephone Encounter - Pastora Eubanks - 04/16/2024 2:13 PM EST DME RX for Compression stockings generated and placed on providers desk for signature. * Telephone Encounter - Kourtney Su PharmD - 04/09/2024 1:30 PM EST Patient was seen as follow up in [facility] and is requesting a prescription for compression stockings (specifically requesting size 15-20). Please assist in obtaining prescription from PCP for medical supply store; patient requests to be sent to [facility]. Thank you! documented in this encounter Plan of Treatment Upcoming Encounters Date Type Department Care Team (Late st Contact Info) Description 05/07/2024 10:30 AM EDT Clinical Support [address] [address] 06/02/2024 10:30 AM EDT Medication Management [address] [address] Kourtney uS PharmD [address] [place] [address] 06/03/2024 11:30 AM EDT Office Visit [facility] MED & PEDS [address] [place] [address] Rodger Cole MD 505 [place] [address] 06/23/2024 11:30 AM EDT Office Visit [address] [address] Matilde Calabrese MD [address] [place] [address] documented as of this encounter Visit Diagnoses Not on filedocumented in this encounter Additional Health Concerns Assessment Noted Time PHQ-9 Depression Total Score: 18 024 9:55 AM EST documented as of this encounter Care Teams College Scouting Coordinator Relationship Specialty Start Date End Date Matilde Calabrese MD [address] [place] [address] PCP - General Internal Medicine 11/23/23 Kourtney uS PharmD [address] [place] [address] Pharmacist Internal Medicine 12/05/23 Cecily Pinedo, ROSA [address] [place] [address] Cotton ChopperWheel Alignment Mechanic 01/08/24 04/15/24 [facility] 01/09/24 documented as of this encounter
--- OUTSIDE RECORDS SUMMARY | 2024-05-06 09:04 | XMS_ITS | Encounter Summary ---
Author Organization [employer] Address [address] [facility] 7t [place] [address] Care Team Providers Care Train Gateman Name Role Phone Matilde Calabrese MD Primary Care Provide r Kourtney Su PharmD Unavailable [phone] Cecily Pinedo RN Unavailable [phone] Reason for Visit * Reason Onset Date Comments Care Management 04/08/2024 C3CM- f/u call Encounter Details Date Type Department Care Team ([facility] st Contact Info) Description 04/08/2024 Telephone [facility] MEDICINE [address] [place], [place] [phone] Matilde Calabrese MD [address] [place] [address] Care Management (C3CM- f/u call) Social History [...] t he electric, gas, oil or water [employer] threatened to shut off services in your [...] Telephone Encounter - Cecily Pinedo RN - 04/08/2024 3:06 PM EST CM received voicemail message from patient dated 04/07/24. CM returned call to patient. Patient requesting EMG results. EMG was completed at [facility] on 03/18 and report scanned in to chart. CM reviewed with patient. Patient reports pain, redness, swelling, and numbness to bilateral hands. He states the symptoms are chronic but have worsened in the last 2 weeks. Patient states the pain feels worse with the cold weather. He reports taking the gabapentin 300mg TID with mild effect. CM provided educationon walk in center and provided patient with clinic hours. Patient is scheduled to f/u with Kourtney at [facility] pharmacy tomorrow. States he will present to the walk in if symptoms persist or worsen. Patient is also requesting refill of Rx Tresiba. He states the insulin was recently increased to 18 units daily. Patient will be due for Rx tomorrow. CM called [facility] pharmacy. Informed they have the script for 18 units on file but it is too soon to fill. CM called Kourtney with [facility] pharmacy who agrees to contact the [facility] pharmacy. She will f/u with patient tomorrow. Patient denies any further needs or concerns at this time. documented in this encounter Plan of Treatment Upcoming Encounters Date Type Department Care Team (Late st Contact Info) Description 05/07/2024 10:30 AM EDT Clinical Support [address] [address] 06/02/2024 10:30 AM EDT Medication Management [address] [address] Kourtney Su, PharmD [address] [place] [address] 06/03/2024 11:30 AM EDT Office Visit [facility] CH[facility] MED & PEDS [address] [place] [address] Rodger Cole MD 505 [place] [address] 06/23/2024 11:30 AM EDT Office Visit [address] [address] Matilde Calabrese MD [address] [place] [address] documented as of this encounter Visit Diagnoses Not on filedocumented in this encounter Additional Health Concerns Assessment Noted Time PHQ-9 Depression Total Score: 18 024 9:55 AM EST documented as of this encounter Care Teams Train Gateman Relationship Specialty Start Date End Date Matilde Calabrese MD [address] [place] [address] PCP - General Internal Medicine 11/23/23 Kourtney uS, PharmD [address] [place] [address] Pharmacist Internal Medicine 12/05/23 Cecily Pinedo RN [address] [place] [address] Mineral TechnologistPouncer 01/08/24 04/15/24 [facility] 01/09/24 documented as of this encounter
--- OUTSIDE RECORDS SUMMARY | 2024-05-06 09:04 | XMS_ITS | Encounter Summary ---
Author Organization [employer] Address [address] [facility] 7t [place] [address] Care Team Providers Care Associate Chief Nurse Name Role Phone Matilde Calabrese MD Primary Care Provide r Kourtney Su PharmD Unavailable [phone] Cecily Pinedo RN Unavailable [phone] Reason for Visit * Reason Comments Care Coordination Appt reminder Encounter Details Date Type Department Care Team (Latest Contact Info) Description 04/10/2024 Patient Outreach [facility] MEDICINE [address] [place] [address] Matilde Calabrese MD [address] [place] [address] Care Coordination (Appt reminder) Social History Tobacco Use Types Packs/Day Years [...] the past 12 months, has t he [employer], gas, oil or water company threatened to [...] encounter Progress Notes * Yue Eubanks - 04/10/2024 11:07 AM EST CHW Yue Eubanks sent appt reminder through [employer] for 04/11/24 at 9:30am ENT [address] [place] [address] documented in this encounter Plan of Treatment Upcoming Encounters Date Type Department Care Team (Late st Contact Info) Description 05/07/2024 10:30 AM EDT Clinical Support [facility]ICINE [address] [place] [address] 06/02/2024 10:30 AM EDT Medication Management [facility] [address] [place] [address] Kourtney Su, PharmD [address] [place] [address] 06/03/2024 11:30 AM EDT Office Visit [facility] MED & PEDS [address] [place] [address] Rodger Cole MD [address] [place], [place] [phone] 06/23/2024 11:30 AM EDT Office Visit [facility] MEDICINE [address] [place] [address] Matilde Calabrese MD [address] [place] [address] documented as of this encounter Visit Diagnoses Not on filedocumented in this encounter Additional Health Concerns Assessment Noted Time PHQ-9 Depression Total Score: 18 024 9:55 AM EST documented as of this encounter Care Teams Associate Chief Nurse Relationship Specialty Start Date End Date Matilde Calabrese MD [address] [place] [address] PCP - General Internal Medicine 11/23/23 Kourtney Su PharmD [address] [place] [address] Pharmacist Internal Medicine 12/05/23 Cecily Pinedo, ROSA [address] [place] [address] Collection Systems TechnicianCore Machine Tender 01/08/24 04/15/24 [facility] 01/09/24 documented as of this encounter
--- OUTSIDE RECORDS SUMMARY | 2024-05-06 09:04 | XMS_ITS | Encounter Summary ---
Author Organization [employer] Address 75 [facility] 7t [place] [address] Care Team Providers Care Primer Inserting Machine Adjuster Name Role Phone Matilde Calabrese MD Primary Care Provide r Kourtney Su PharmD Unavailable [phone] Cecily Pinedo RN Unavailable [phone] Reason for Referral * Consultation (Urgent) - Authorized Specialty Diagnoses / Procedures Referred By Contmaine mujica Referred To Contact Orthopaedic Surgery Diagnoses Bilateral carpal tunnel syndrome Matilde Calabrese MD [address] [place] [address] Phone: tel: fax: [facility] [address] [place] [address] Drive [address] [place], [place] Phone: tel: fax: Referral ID Status Reason Start Date Expiration Date Visits Requested Visits Authorized [id number] Authorized Specialty Services Required 04/09/2024 04/09/2025 6 6 Encounter Details Date Type Department Care Team (Late st Contact Info) Description 04/09/2024 Orders Only [facility] MEDICINE [address] [place] [phone] Matilde Calabrese MD [address] [place] [address] Bilateral carpal tunnel syndrome (Primary Dx) Social History Tobacco Use Types [...] Upcoming Encounters Date Type Department Care Team ([facility] st Contact Info) Description 05/07/2024 10:30 AM EDT Clinical Support [address] [address] 06/02/2024 10:30 AM EDT Medication Management [address] [place] [address] Kourtney Su, PharmD [address] [place] [address] 06/03/2024 11:30 AM EDT Office Visit [facility] MED & PEDS [address] [place], [place] [phone] Rodger Cole MD 505 [place], [place] [phone] 06/23/2024 11:30 AM EDT Office Visit [facility] MEDICINE [address] [place] [address] Matilde Calabrese MD [address] [place] [address] Scheduled Referrals Name Type Priority Associated Diagnoses Order Schedule Referral to Orthopaedic Surgery Outpatient Referral Urgent Bilateral carpal tunnel syndrome Expected: 04/09/2024 (Approximate), Expires: 04/09/2025 documented as of this encounter Visit Diagnoses Diagnosis Bilateral carpal tunnel syndrome- Primary Carpal tunnel syndrome documented in this encounter Additional Health Concerns Assessment Noted Time PHQ-9 Depression Total Score: 18 024 9:55 AM EST documented as of this encounter Care Teams Primer Inserting Machine Adjuster Relationship Specialty Start Date End Date Matilde Calabrese MD [address] [place] [address] PCP - General Internal Medicine 11/23/23 Kourtney Su, PharmD [address] [place] [address] Pharmacist Internal Medicine 12/05/23 Cecily Pinedo, ROSA [address] [place] [address] Asparagus CutterBible Worker 01/08/24 04/15/24 [facility] 01/09/24 documented as of this encounter
--- OUTSIDE RECORDS SUMMARY | 2024-05-06 09:04 | XMS_ITS | Encounter Summary ---
Author Organization [employer] Address [address] [facility] 7t [place] [address] Care Team Providers Care Public Policy Associate Name Role Phone Matilde Calabrese MD Primary Care Provide r Kourtney Su PharmD Unavailable Reason for Visit * Reason Onset Date Comments Durable Medical Equipment 04/25/2024 Encounter Details Date Type Department Care Team (Late st Contact Info) Description 04/25/2024 Telephone [facility] MEDICINE [address] [place], [place] [phone] Matilde Calabrese MD [address] [place] [address] Durable Medical Equipment Social History Tobacco Use Types Packs/Day Years [...] encounter Miscellaneous Notes * Telephone Encounter - Ariana Briggs MA - 04/25/2024 10:40 AM EST DME- Generated prescription for compression stockings 15-20mmhg , provider signed dme fax to [facility] , scanned in the patient chart. documented in this encounter Plan of Treatment Upcoming Encounters Date Type Department Care Team (Late st Contact Info) Description 05/07/2024 10:30 AM EDT Clinical Support [facility] MEDICINE [address] [place] [address] 06/02/2024 10:30 AM EDT Medication Management [facility] MEDICINE [address] [place] [address] Kourtney Su, PharmD [address] [place] [address] 06/03/2024 11:30 AM EDT Office Visit [facility] CH[facility] MED & PEDS [address] [place] [address] Rodger Cole MD [address] [place] [address] 06/23/2024 11:30 AM EDT Office Visit [facility] MEDICINE [address] [place] [address] Matilde Calabrese MD [address] [place] [address] documented as of this encounter Visit Diagnoses Not on filedocumented in this encounter Additional Health Concerns Assessment Noted Time PHQ-9 Depression Total Score: 18 024 9:55 AM EST documented as of this encounter Care Teams Public Policy Associate Relationship Specialty Start Date End Date Matilde Calabrese MD [address] [place] [address] PCP - General Internal Medicine 11/23/23 Kourtney Su, Samara [address] [place] [address] Pharmacist Internal Medicine 12/05/23 [facility] 01/09/24 documented as of this encounter
--- OUTSIDE RECORDS SUMMARY | 2024-05-06 09:04 | XMS_ITS | Encounter Summary ---
Author Organization [employer] Address [address] [address] [place] [address] Care Team Providers Care Newspaper Photo Editor Name Role Phone Matilde Calabrese MD Primary Care Provide r Kourtney Su PharmD Unavailable [phone] Cecily Pinedo RN Unavailable [phone] Encounter Details Date Type Department Care Team (Late st Contact Info) Description 05/02/[address] [facility] MEDICINE [address] [place], [place] [phone] Matilde Calabrese MD [address] [place], [place] [phone] Social History Tobacco Use Types Packs/Day Years [...] Telephone Encounter - Cecily Pinedo RN - 05/02/2024 11:47 AM EDT CM received call from patient. Patient c/o nausea and abdominal pain for several days. He states hehas been trying to ignore the pain and ride it out but the pain is now unbearable. Patient statesthe pain is located in the upper abdomen. Per patient, not able to eat due to the pain. He states was able to take his morning meds today but had to drink some milk to take them down. Patient states the only relief he gets is from burping. Per patient, the burps smell awful . Patient states the symptoms are similar to those of acid reflux. Patient taking omeprazole as prescribed. Patient also reports diarrhea x2 days. Reports last BM yesterday. He denies noting blood in stool. He states he usually drinks a lot of water but is afraid to drink water now, as he thinks he may throw it up. Patient denies fever, chills, SOB. He does report intermittent episodes of dizziness but states these happen daily. Patient states he lives close to the ED and will go there for further eval. He agrees to f/u with [facility] following ED visit. documented in this encounter Plan of Treatment Upcoming Encounters Date Type Department Care Team (Late st Contact Info) Description 05/07/2024 10:30 AM EDT Clinical Support [address] [address] 06/02/2024 10:30 AM EDT Medication Management [address] [address] Kourtney Su PharmD [address] [place] [address] 06/03/2024 11:30 AM EDT Office Visit [facility] MED & PEDS [address] [place] [address] Rodger Cole MD [address] [place] [address] 06/23/2024 11:30 AM EDT Office Visit [address] [address] Matilde Calabrese MD [address] [place] [phone] documented as of this encounter Visit Diagnoses Not on filedocumented in this encounter Additional Health Concerns Assessment Noted Time PHQ-9 Depression Total Score: 18 024 9:55 AM EST documented as of this encounter Care Teams Newspaper Photo Editor Relationship Specialty Start Date End Date Matilde Calabrese MD [address] [place] [phone] PCP - General Internal Medicine 11/23/23 Kourtney Su PharmD [address] [place] [phone] Pharmacist Internal Medicine 12/05/23 Cecily Pinedo RN [address] [place] [phone] Stevedoring SuperintendentEntry Level Sales Associate 04/29/24 [facility] 01/09/24 documented as of this encounter
--- OUTSIDE RECORDS SUMMARY | 2024-05-06 09:04 | XMS_ITS | Encounter Summary ---
Author Organization [employer] Address [address] [facility] [address] [place] [address] Care Team Providers Care Manufacturing Lab Technician Name Role Phone Matilde Calabrese MD Primary Care Provide r Kourtney Su PharmD Unavailable Reason for Visit * Reason Onset Date Comments Medication list 04/24/2024 Encounter Details Date Type Department Care Team ([facility] st Contact Info) Description 04/24/2024 Telephone [facility] MEDICINE [address] [place], [place] [phone] Matilde Calabrese MD [address] [place] [address] Medication list Social History Tobacco Use Types Packs/Day Years [...] Telephone Encounter - Eli Ramsay RN - 04/24/2024 1:48 PM EST RN has printed medication list and faxed to [employer] at [phone] and [phone], confirmation page received. * Telephone Encounter - Cecily Pinedo RN - 04/24/2024 1:04 PM EST CM received call from patient. Patient states he had an issue with the Trulicity yesterday. Per patient, picked up Rx from [facility] pharmacy but noted that he was given the wrong dose. He states he followed up with the pharmacy and was advised that they had not received the prescription for the 3mg dose. Per patient, issue has since been resolved and states he was provided with the 3mg dose. Patient is requesting to know if all of his medications were [facility] to [facility]. CM advised he f/u with the pharmacy to inquire. He agrees. Per patient, missed visit with . He is requesting return call from team to reschedule. He is aware that an OP referral was placed. He states he has not received the letter that was mailed out on 04/18. CM will send office details/ contact information to patient via [employer] so that he can outreachthe office. He agrees. Patient states he received a call from his visiting nurse and was advised that their most updated medication list does not list gabapentin. He states he was informed that the gabapentin 300mg was discontinued and that the 600mg is not listed in their orders. They are requesting that an updated med list/order be sent to their office. CM contacted [facility] today. Advised that they faxed over a request yesterday for a secondary Dx code in order to process Rx. CM requested that the fax be re sent to CM so that CM can f/u withPA specialist. They agree to re -fax the request. CM informed patient that prescription is still inprocess and will f/u with patient on status. He verbalizes understanding. documented in this encounter Plan of Treatment Upcoming Encounters Date Type Department Care Team (Late st Contact Info) Description 05/07/2024 10:30 AM EDT Clinical Support [address] [address] 06/02/2024 10:30 AM EDT Medication Management [address] [address] Kourtney Su, PharmD [address] [place] [address] 06/03/2024 11:30 AM EDT Office Visit [facility] MED [facility] PEDS [address] [place] [address] Rodger Cole MD [address] [place] [address] 06/23/2024 11:30 AM EDT Office Visit [address] [address] Matilde Calabrese MD [address] [place] [address] documented as of this encounter Visit Diagnoses Not on filedocumented in this encounter Additional Health Concerns Assessment Noted Time PHQ-9 Depression Total Score: 18 024 9:55 AM EST documented as of this encounter Care Teams Manufacturing Lab Technician Relationship Specialty Start Date End Date Matilde Calabrese MD [address] [place] [address] PCP - General Internal Medicine 11/23/23 Kourtney Su, EmmaD [address] [place] [address] Pharmacist Internal Medicine 12/05/23 [facility] 01/09/24 documented as of this encounter
--- OUTSIDE RECORDS SUMMARY | 2024-05-06 09:04 | XMS_ITS | Clinical Summary ---
Author Organization [employer] Address [address] [facility] [address] [place] [address] Care Team Providers Care Wireless Cellular Technician Name Role Phone Matilde Calabrese MD Primary Care Provide r Kourtney Su PharmD Unavailable [phone] Cecily Pinedo RN Unavailable [phone] Allergies Active Allergy Reactions Criticality Noted Date Comments Ibuprofen 07/12/[address] not to take it because my kidneys . Other Reaction(s): Renal Impairment But can take indomethacin without problems Iodinated Contrast Media 05/11/2023 Other Reaction(s): Renal Impairment Medications * This document contains information received from the source organization and may not represent a complete record from that organization. Blood Glucose Monitoring Suppl (FreeStyle Lite) w/Device kit 1 Units in the morning. 1 kit 023 Active Continuous Glucose Sas Programmer (FreeStyle Cherelle 2 [place]) deviceIndication s:Type 2 diabetes mellitus with hyperglycemia, without long-term current use of insulin ([facility]) Scan sensor every 8 hours 1 each 024 Active glucose blood (FreeStyle Precision Jefry Test) test stripIndications :Type 2 diabetes mellitus with hyperglycemia, without long-term current use of insulin ([facility]) Use to test blood sugar 3 times daily 100 each 12 024 2024 Active FreeStyle lancetsIndicatio ns:Type 2 diabetes mellitus with hyperglycemia, with long-term current use of insulin ([facility]) 1 each by Other route 4 times daily. 100 each 11 01/06/ 024 Active pen needle 32G x 4 mm miscIndications: Type 2 diabetes mellitus with hyperglycemia, with long-term current use of insulin (CMS/[facility]) Use as instructed with insulin administration once daily 100 each 11/18/2 024 2024 Active UltiCare Alcohol Swabs 70 % padsIndications: Type 2 diabetes mellitus with hyperglycemia, with long-term current use of insulin ([facility]) Use as directed with insulin administration [...] may bleach towels/clothes. 142 g 2 Active insulin degludec (Tresiba FlexTouch) 100 UNIT/ML injectionIndicat ions:Type 2 diabetes mellitus with hyperglycemia, with long-term current use of insulin ([facility]) Inject subcutaneously 18 units once daily 15 mL Active acetaminophen (Tylenol 8 Hour) 650 MG ER tablet Take 1 tablet (650 mg) by mouth every 8 (eight) hours if needed for mild pain. Do not crush, chew, or split. 50 tablet 1 025 2025 Active glucose 4 g chewable tabletIndication s:Type 2 diabetes mellitus with hyperglycemia, with long-term current use of insulin ([facility]) Use as directed for low blood sugar 50 tablet 11 Active fluticasone (Flonase) 50 MCG/ACT nasal sprayIndications :Right chronic serous otitis media Administer 1-2 sprays into each nostril Once per day. Shake gently. Before first use, prime pump. After use, clean tip and replace cap. 16 g 2 025 01/31/ 2026 Active Continuous Glucose Sensor (FreeStyle Cherelle 2 Sensor) miscIndications: Type 2 diabetes mellitus with hyperglycemia, with long-term current use of insulin ([facility]) Apply 1 sensor every 14 days 2 each Active levothyroxine (Synthroid) 100 MCG tabletIndication s:Acquired hypothyroidism Take 1 tablet (100 mcg) by mouth before breakfast. 90 tablet 025 2025 Active lisinopril (Prinivil) 20 MG tabletIndication s:Hypertension, unspecified type Take 1 tablet (20 mg) by mouth Once per day. 90 tablet 025 2025 Active atorvastatin (Lipitor) 20 MG tabletIndication s:Type 2 diabetes mellitus with hyperglycemia, with long-term current use of insulin ([facility]) Take 1 tablet by mouth once daily 90 tablet Active amLODIPine (Norvasc) 10 MG tabletIndication s:Primary hypertension Take 1 tablet by mouth once daily 90 tablet Active docusate sodium (Colace) 100 MG capsuleIndicatio ns:Constipation, unspecified constipation type TAKE 1 CAPSULE BY MOUTH TWICE DAILY 180 capsule 1 Active gabapentin (Neurontin) 600 MG tabletIndication s:Diabetic polyneuropathy associated with type 2 diabetes mellitus ([facility]) Take 1 tablet (600 mg) by mouth 3 times daily. 90 tablet 2025 Active empagliflozin (Jardiance) 10 MGIndications:Di abetic polyneuropathy associated with type 2 diabetes mellitus ([facility]) Take 1 tablet (10 mg) by mouth Once per day. 30 tablet 2025 Active carvedilol (Coreg) 12.5 MG tabletIndication s:Essential (primary) hypertension Take 1 tablet (12.5 mg) by mouth with breakfast and with evening meal. 60 tablet 2025 Active Dulaglutide (Trulicity) 3 MG/0.5ML solution auto-injectorInd ications:Type 2 diabetes mellitus with hyperglycemia, with long-term current use of insulin ([facility]) Inject 3 mg under the skin 1 (one) time per week. 2 mL 3 03/07/2 025 Active carvedilol (Coreg) 6.25 MG tabletIndication s:Primary hypertension Take 1 tablet by mouth twice daily 180 tablet 024 2024 Discontinued Dulaglutide (Trulicity) 3 MG/0.5ML solution auto-injectorInd ications:Type 2 diabetes mellitus with hyperglycemia, with long-term current use of insulin ([facility]) Inject 0.5 mL (3 mg) under the skin 1 (one) time per week. 2 mL 3 024 2024 Discontinued(R eorder (will not trigger notification to Pharmacy)) polyethylene glycol, PEG, 3350 (MiraLax) 17 GM/SCOOP powderIndication s:Constipation, unspecified constipation type Take 17 g by mouth Once per day. 527 g 1 025 2024 docusate sodium (Colace) 100 MG capsuleIndicatio ns:Constipation, unspecified constipation type Take 1 capsule (100 mg) by mouth 2 times daily. 60 capsule 1 025 2024 Discontinued gabapentin (Neurontin) 300 MG capsule Take 1 capsule (300 mg) by mouth 3 times daily. 90 capsule 3 025 2024 Discontinued amLODIPine (Norvasc) 10 MG tabletIndication s:Primary hypertension Take 1 tablet by mouth once daily 90 tablet 3 025 2024 Discontinued(R eorder (will not trigger notification to Pharmacy)) atorvastatin (Lipitor) 20 MG tabletIndication s:Type 2 diabetes mellitus with hyperglycemia, with long-term current use of insulin ([facility]) Take 1 tablet by mouth once daily 90 tablet 3 025 2024 Discontinued(R eorder (will not trigger notification to Pharmacy)) Active Problems Problem Noted Date Diagnosed Date Venous insufficiency 04/22/2024 Assessment & Plan (04/22/2024 1:32 PM EST): I will prescribe compression stockings 15-20mmhg #2 I will refer patient to vascular Ocular pain, right eye 03/11/2024 Assessment & Plan (03/11/2024 4:17 PM EST): Pt with c/o persistent right ocular pain x 5 days in the absence of any injury. No fever. He does c/o right sided headache as well. Seen at [facility] ER, intraocular pressure per ER report on right eye was normal. On today's exam pt has photophobia and painful extraocular movements on the right. No redness, mild tenderness to palpation right eye. Etiology ? Ocular migraine vs other etiologies Plan: Stat Orbital and head CT. CBC, ESR. Pt to be seen by our Management Professionals Dr. Gresham tomorrow at 3:45 PM Follow [...] ciated with type 2 diabetes mellitus 12/27/2023 Assessment & Plan (04/22/2024 3:05 PM EST): Diabetes is: not controlled but improved - Lab Results Component Value Date HGBA1C 9.2 (A) 03/21/2024 HGBA1C 10.3 (A) 02/18/2024 HGBA1C 11.7 (A) 11/14/2023 - Lab Results Component Value Date MICROALBUR 52.0 02/18/2024 CREATININE 0.93 03/12/2024 -Changes: Counseling about diabetic diet done today, I will add today Jardiance 10 mg daily in light of stable EGFR, continue with same insulin doses and same Trulicity dose I will also add to his VNA services glucose monitoring and medication administration - Diabetic eye exam: Up-to-date - Diabetic foot exam: Up-to-date -f/u 6 weeks Bilateral wrist pain 12/27/2023 Assessment & Plan [...] Essential (primary) hypertension 07/18/2022 Assessment & Plan (04/22/2024 3:08 PM EST): Blood pressure seems to be elevated, patient is clinically asymptomatic I advised low-sodium diet and weight reduction I increase his carvedilol dose to 12.5 mg twice a day Continue with lisinopril 20 mg daily Continue with amlodipine 10 mg daily Return to clinic in 2 weeks for nurse visit for blood pressure check, if blood pressure is not at goal plan is to add hydrochlorothiazide 25 mg Continue to follow-up with nephrology I will add to his VNA services blood pressure monitoring and medication administration Assessment & Plan (02/17/2024 5:03 PM EST): [...] (02/17/2024 5:00 PM EST): - Referral to [facility] Derm team placed 02/17/24 - Start [...] Gout 01/18/2018 Acute ankle pain 01/18/2018 Encounters * This document contains information received from the source organization and may not represent a complete record from that organization. Date Type Department Care Team Description 05/05/2024 Patient Outreach [facility] [address] [place] [phone] Matilde Calabrese MD Care Coordination (Appt reminder ) 05/02/2024 Telephone [facility] [address] [place] [address] Matilde Calabrese MD 05/02/2024 Population Health Risk Score [facility] (C3) [address] [phone] Provider, Population Health Generic 05/01/2024 Refill [facility] [address] [place] [address] Matilde Calabrese MD 04/30/2024 Telephone [facility] [address] [place] [phone] Matilde Calabrese MD Care Management ([facility]- f/u call) 04/25/2024 Telephone [facility] [address] [place] [phone] Matilde Calabrese MD Durable Medical Equipment 04/24/2024 Telephone [facility] [address] [place] [address] [phone] Matilde Calabrese MD Medication list 04/23/2024 Telephone [facility] [address] [place] [address] [phone] Matilde Calabrese MD 04/23/2024 Travel 04/23/2024 Telephone [facility] [address] [place] [phone] Matilde Calabrese MD VNA orders 04/22/2024 1:00 PM EST Office Visit [facility] [address] [place] [phone] Matilde Calabrese MD Essential (primary) hypertension (Primary Dx); Diabetic polyneuropathy associated with type 2 diabetes mellitus ([facility]); Venous insufficiency 04/22/2024 Travel 04/19/2024 Refill [facility] [address] [place] [address] [phone] Matilde Calabrese MD Constipation, unspecified constipation type 04/17/2024 Telephone [facility] [address] [place] [address] [phone] Matilde Calabrese MD 04/16/2024 Telephone [facility] [address] [place] [address] [phone] Matilde Calabrese MD Care Management ([facility]- f/u call) 04/15/2024 Patient Outreach [address] [address] Matilde Calabrese MD Care Coordination (Follow up) 04/15/[address] [address] Matilde Calabrese MD 04/10/2024 Patient Outreach [address] [address] Matilde Calabrese MD Care Coordination (Appt reminder) 04/09/[address] [address] Kourtney Su PharmD Durable Medical Equipment (DME: Compression Stockings) 04/09/2024 Orders Only [address] [address] Matilde Calabrese MD Bilateral carpal tunnel syndrome (Primary Dx) 04/09/2024 Travel 04/08/[address] [address] Matilde Calabrese MD Care Management ([facility]- f/u call) 04/08/[address] [address] Matilde Calabrese MD Error (VOID this visit) 04/01/[address] [phone] Cecily Pinedo, RN Care Management ([facility]- f/u call) 03/26/[address] [phone] Cecily Pinedo, RN 03/21/2024 12:30 PM EST Office Visit [address] [address] Randi Jiménez MD Ocular pain, right eye (Primary Dx); Type 2 diabetes mellitus with hyperglycemia, with long-term current use of insulin ([facility]); Dietary counseling; Exercise counseling; Class 3 severe obesity with serious comorbidity and body mass index (BMI) of 45.0 to 49.9 in adult, unspecified obesity type ([facility]); Primary hypertension; Type 2 diabetes mellitus with hyperglycemia, without long-term current use of insulin ([facility]); Acquired hypothyroidism; Hypertension, unspecified type; Right chronic serous otitis media 03/21/2024 Travel 03/21/2024 Telephone [facility] [address] [place] [phone] Ileana Jones, RN Results 03/19/2024 Telephone [facility] [address] [place] [address], [place] [address] Cecily Pinedo RN 03/19/2024 Patient Outreach [address] [address] Matilde Calabrese MD Care Coordination (SDOH) 03/19/[address] [address] Cecily Pinedo RN Care Management ([facility]- f/u call) 03/17/2024 Patient Outreach [address] [address] Matilde Calabrese MD Transition Of Care (Tcm) 03/14/2024 Orders Only [facility] [address] [place] [address], [place] [address] Christian Muñoz MD 03/12/2024 3:45 PM EST Office Visit [facility] [address] [place] [address] TarAnisha holguin, OD Ocular pain, right eye (Primary Dx); 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 ([facility]); Intermittent exotropia, alternating 03/12/2024 Travel 03/12/2024 Telephone [facility] [address] [place] [address] Cecily Pinedo RN 03/11/2024 3:00 PM EST Office Visit [facility] [address] [place] [phone] Christian Muñoz MD Ocular pain, right eye; Acute intractable headache, unspecified headache type 03/11/2024 Telephone [facility] [address] [place] [phone] Kourtney Su, PharmD 03/11/2024 Travel 03/11/2024 Patient Outreach [address] [address] Matilde Calabrese MD Transition Of Care (Tcm) 03/07/[address] [address] Cecily Pinedo, ROSA Care Coordination 03/07/[address] [address] Cecily Pinedo, ROSA Care Management ([facility]- f/u call) 03/06/2024 Patient Outreach [address] [address] Matilde Calabrese MD Care Coordination (SDOH/appt reminders) 03/03/2024 10:00 AM EST Office Visit [facility] [address] [place] [phone] Charity Luna DO Right foot pain (Primary Dx) 02/29/[address] [address] Matilde Calabrese MD Call Back Request 02/28/[address] [address] Matilde Calabrese MD 02/27/2024 Travel 02/26/2024 10:30 AM EST Telemedicine [address] [address] Kourtney Su, PharmD Type 2 diabetes mellitus with hyperglycemia, with long-term current use of insulin ([facility]) (Primary Dx) 02/26/2024 Orders Only [address] [address] Matilde Calabrese MD Constipation, unspecified constipation type (Primary Dx) 02/26/[address] [address] Chante Davis, ROSA 02/25/[address] [address] Cecily Pinedo, ROSA 02/25/[address] [phone] Cecily Pinedo, RN Care Management ([facility]- f/u call) 02/22/[address] [phone] Kourtney Su PharmD 02/19/[address] [phone] Ileana Jones RN Hyperglycemia 02/19/2024 Travel 02/18/[address] [address] Matilde Claabrese MD CRITICAL RESULT 02/18/2024 Orders Only GENERIC EXTERNAL DATA DEPARTMENT Provider, Generic External Data 02/18/2024 Patient Outreach [address] [address] Matilde Calabrese MD Care Coordination (Appt reminders) 02/18/2024 Travel 02/15/2024 10:00 AM EST Office Visit [facility] [address] [place], [place] [phone] Silvia George FNP Carpal tunnel syndrome, unspecified laterality (Primary Dx); Type 2 diabetes mellitus with hyperglycemia, with long-term current use of insulin ([facility]); Hidradenitis suppurativa; Essential (primary) hypertension 02/15/2024 Travel 02/14/2024 Patient Outreach [address] [address] Matilde Calabrese MD Care Coordination (APPT REMINDER) 02/11/[address] [phone] Cecily Pinedo, RN Care Management ([facility]- f/u call) 02/07/2024 Orders Only [facility] [address] [place] [address] Ari Guidry MD 02/07/[address] [address] Linn Connelly RN 02/06/2024 Telephone [facility] [address] [facility] [place] [phone] Matilde Calabrese MD No Show 02/06/2024 Telephone [facility] [address] [facility] [place] [address] Matilde Calabrese MD from Last 3 Months Immunizations Name Administration [...] Sign Reading Time Taken Comments Blood Pressure 130/92 04/23/2024 10:45 AM EST Pulse 91 04/23/2024 10:45 AM EST Temperature 36.6 ??C (97.8 ??F) 04/22/2024 1:14 PM ES T Respiratory Rate 18 04/22/2024 1:14 PM EST Oxygen Saturation 98% 03/11/2024 3:22 PM EST Inhaled Oxygen Concentration - - Weight 127 kg (279 lb 6.4 oz) 04/22/2024 1:14 PM EST Height 162.6 cm (5' 4 ) 04/22/2024 1:14 PM EST Body Mass Index 47.96 04/22/2024 1:14 PM EST Plan of Treatment Upcoming Encounters Date Type Department Care Team (Late st Contact Info) Description 05/07/2024 10:30 AM EDT Clinical Support [facility] [address] [place] [phone] 06/02/2024 10:30 AM EDT Medication Management [facility] [address] [place] [phone] Kourtney Su, PharmD [address] [place] [phone] 06/03/2024 11:30 AM EDT Office Visit [facility] [address] [place], [place] [phone] Rodger Cole MD [address] [place], [place] [phone] 06/23/2024 11:30 AM EDT Office Visit [facility] [address] [place], [place] [phone] Matilde Calabrese MD [address] [place], [place] [phone] Health Maintenance Due Date Last Done Comments HIV Screening 1985 Family Planning (PISQ) 2001 COVID-19 Vaccine (2023- season) 2023 04/09/2020, 03/12/2020 Hepatitis B Vaccines [...] hyperglycemia, with long-term current use of insulin ([facility]) POCT GLUCOSE Routine 03/21/2024 12:35 PM EST Type 2 diabetes mellitus with hyperglycemia, with long-term current use of insulin ([facility]) CT ORBIT BI WO CONTRAST Routine 03/14/2024 [...] hyperglycemia, with long-term current use of insulin ([facility]) ALBUMIN, RANDOM URINE W/CREATININE Routine 02/18/2024 11:22 [...] WO CONTRAST Routine 02/06/2024 12:43 PM EST from Last 3 Months Results * (ABNORMAL) POCT HGB A1C (03/21/2024 12:35 PM EST) Only the most recent of2 resultswithin the time period is included. Hemoglobin A1C 9.2(A) 4.0 - 6.0 % QC Media Lot # [id number] Lot# Expiration Date [id number] Blood 03/21/2024 12:3 5 PM EST Randi Jiménez MD POINT OF CARE TEST ENTER/EDIT ORDERABLES Final Result * (ABNORMAL) POCT Glucose (03/21/2024 12:35 PM EST) Only the most recent of4 resultswithin the time period is included. Glucose Blood, POC 223(A) 60 - 200 mg/dL Comment:r QC Media Lot # [id number] Lot# Expiration Date Blood Capillary blood specimen / Unknown 03/21/2024 12:35 PM EST us Randi Jiménez MD POINT OF CARE TEST ENTER/EDIT ORDERABLES Final Result * CT ORBIT BI WO CONTRAST (03/14/2024 10:05 AM EST) Anatomical Region Laterality Modality Head, Neck Computed Tomogra phy 03/14/2024 10:0 5 AM EST Narrative 03/14/2024 10:07 AM EST ? [facility] ?[address] ?[place] [address] ? CT Scan Report ? Signed ? Patient: Anderson,Raji ?MR#: [id number] ? : 1985 ?Acct:[id number] ? Age/Sex: 38 / M ?ADM Date: 03/14/24 ? Loc: HO.CT ? Attending Dr: Christian Shelton MD ? Ordering Physician: Christian Shelton MD ?? Date of Service: 03/14/24 ?? Procedure(s): CT orbit BI wo IV con ?? Accession Number(s): [id number] ? cc: Matilde Calabrese MD; Christian Shelton MD ? Report Number: ?? [id number]: Total DLP = ??121.00 mGy-cm ? CLINICAL [...] OV> ? 03/14/246 ? DD/ ? TD/TT: 03/14/24 1005 ? Patient Support Associate: ? Procedure Note Rich, Image - 03/14/[address] [address] [address] Scan Report Signed Patient: Cedrick Anderson#: [id number] : 1985Acct:[id number] Age/Sex: 38 / MADM Date: 03/14/24 Loc: HO.CT Attending Dr: Christian Shelton MD Ordering Physician: Christian Shelton MD Date of Service: 03/14/24 Procedure(s): CT orbit BI wo IV con Accession Number(s): [id number] cc: Matilde Calabrese MD; Christian Shelton MD Report Number: [id number]: Total DLP = 121.00 mGy-cm CLINICAL HISTORY: [...] 03/14/24 1006 DD/ 1005 TD/TT: 03/14/24 1005 Patient Support Associate: us Christian Fuchs MD IMG CT PROCEDURES Fin al Result * CT Head w/o Contrast (03/14/2024 10:02 AM EST) Anatomical Region Laterality Modality Head, Neck Computed Tomogra phy 03/14/2024 10:0 2 AM EST Narrative 03/14/2024 10:04 AM EST ? [facility] ?[address] ?[place] [address] ? CT Scan Report ? Signed ? Patient: Anderson,Raji ?MR#: [id number] ? : 1985 ?Acct:[id number] ? Age/Sex: 38 / M ?ADM Date: 03/14/24 ? Loc: HO.CT ? Attending Dr: Chirstian Shelton MD ? Ordering Physician: Christian Shelton MD ?? Date of Service: 03/14/24 ?? Procedure(s): CT head/brain wo IV con ?? Accession Number(s): [id number] ? cc: Matilde Calabrese MD; Christian Shelton MD ? Report Number: ?? [id number]: Total DLP = 1059.00 mGy-cm ? CLINICAL [...] DD/ 1002 ? TD/TT: 03/14/24 1002 ? Patient Support Associate: ? Procedure Note Donotuseinterpreter, Image - 03/14/[address] [address] [address] Scan Report Signed Patient: Cedrick Anderson#: [id number] : 1985Acct:[id number] Age/Sex: 38 / MADM Date: 03/14/24 Loc: HO.CT Attending Dr: Christian Shelton MD Ordering Physician: Christian Shelton MD Date of Service: 03/14/24 Procedure(s): CT head/brain wo IV con Accession Number(s): [id number] cc: Matilde Calabrese MD; Christian Shelton MD Report Number: [id number]: Total DLP = 1059.00 mGy-cm CLINICAL HISTORY: [...] 03/14/24 1004 DD/ 1002 TD/TT: 03/14/24 1002 Patient Support Associate: us Christian Fuchs MD IMG CT PROCEDURES [...] Blood Count 9.5 4.8 - 10.8 X10*3/uL [facility] Red Blood Count 4.66 4.60 - 5.80 X10*6/uL [facility] Hemoglobin 13.9(L) 14.0 - 18.0 g/dl [facility] Hematocrit 40.0(L) 42.0 - 52.0 % [facility] Mean Corpuscular Volume 85.8 80.0 - 98.0 fL [facility] Mean Corpuscular Hemoglobin 29.8 27.0 - 33.0 pg [facility] Mean Corpuscular HGB Conc 34.8 31.0 - 36.0 g/dl [facility] Red Cell Distribution Width 12.3 11.0 - 16.0 % [facility] Platelet Count 326 160 - 400 X10*3/uL [facility] Mean Platelet Volume 10.4 9.4 - 12.4 fL [facility] Neutrophils Percent Auto 58.0 45 - 73 % [facility] Imm Gran Pct Auto 0.3 0.0 - 0.4 % [facility] Lymphocytes Percent Auto 30.5 20 - 40 % [facility] Monocytes Percent Auto 6.6 2 - 11 % [facility] Eosinophils Percent Auto 3.4 0 - 4 % [facility] Basophils Percent Auto 1.2 0 - 2 % [facility] NRBC Pct Auto 0.0 0.0 - 0.2 /100WBC [facility] Neutrophils Absolute Auto 5.5 2.0 - 8.3 x10*3/uL [facility] Imm Gran Abs Auto 0.03 0.00 - 0.03 X10*3/uL [facility] Lymphocytes Absolute Auto 2.9 1.2 - 4.9 X10*3/uL [facility] Monocytes Absolute Auto 0.6 0.1 - 1.2 X10*3/uL [facility] Eosinophils Absolute Auto 0.3 0.0 - 0.4 X10*3/uL [facility] Basophils Absolute Auto 0.1 0.0 - 0.2 X10*3/uL [facility] NRBC Abs Auto 0.000 0.0 - 0.012 X10*3/uL [facility] Blood Venous blood specimen / Unknown 03/12/2024 2:58 PM EST 03/12/2024 4:20 PM EST us Christian Fuchs MD LAB BLOOD ORDERABLES Final Result [facility] [address] [place] [phone] * (ABNORMAL) Sed Rate by Modified Westergren (03/12/2024 2:58 PM EST) Erythrocyte Sedimentation Rate 34(H) 0 - 15 MM/HR [facility] Comment:Patients with polycy themia and many hemoglobin abnormalitiesmay have depressed sed rates whereas patients with anemiamay have elevated sed rates. Blood Venous blood specimen / Unknown 03/12/2024 2:58 PM EST 03/12/2024 4:20 PM EST Christian Fuchs MD LAB BLOOD ORDERABLES Final Result Performing Organization Address [facility] Co de Phone Number [facility] [address] [place] [address] [phone] * (ABNORMAL) Basic Metabolic Panel (03/12/2024 2:58 PM EST) Only the most recent of2 resultswithin the time period is included. Sodium 135 135 - 145 mmol/L [facility] Potassium 4.3 3.3 - 5.1 mmol/L [facility] Chloride 105 96 - 108 mmol/L [facility] Carbon Dioxide 25 22 - 29 mmol/L [facility] Anion Gap 9(L) 12 - 20 [facility] Urea Nitrogen (BUN) 13 9 - 16 mg/dL [facility] Creatinine, Serum 0.93 0.5 - 1.4 mg/dL [facility] Estimated Glomerular Filt Rate >60 [facility] Comment:Chronic Kidney Disea se: Estimated GFR < 60 mL/min/1.02j9Onnmld Kidney Disease: Estimated GFR < 15 mL/min/1.73m2 Glucose 227(H) 60 - 115 mg/dL [facility] Calcium 9.6 8.4 - 10.2 mg/dL [facility] Blood Venous blood specimen / Unknown 03/12/2024 2:58 PM EST 03/12/2024 4:20 PM EST Christian Fuchs MD LAB BLOOD ORDERABLES Final Result [facility] [address] [place] [address] [phone] * XR Foot 3+ Views Right (03/03/2024 10:49 AM EST) Anatomical Region Laterality Modality Lower Extremities, Foot Right Radiogra phic Imaging 03/03/2024 10:4 9 AM EST Narrative 03/03/2024 11:09 AM EST ?[facility] ?[address] ?[place] [address] ?XRay Report ? Signed ? Patient: Anderson,Raji ?MR#: [id number] ? : 1985 ?Acct:[id number] ? Age/Sex: 38 / M ?ADM Date: 03/03/24 ? Loc: HO.HHCX ? Attending Dr: Charity Luna DO ? Ordering Physician: Charity Luna DO ?? Date of Service: 03/03/24 ?? Procedure(s): XR foot RT min 3V ?? Accession Number(s): [id number] ? cc: Charity Luna DO ? EXAMINATION: [...] DD/ 1049 ? TD/TT: 03/03/24 1058 ? Patient Support Associate: ? Procedure Note Salima Villanueva - 03/03/[address] [address] XRay Report Signed Patient: Cedrick Anderson#: [id number] : 1985Acct:[id number] Age/Sex: 38 / MADM Date: 03/03/24 Loc: HO.HHCX Attending Dr: Charity Luna DO Ordering Physician: Charity Luna DO Date of Service: 03/03/24 Procedure(s): XR foot RT min 3V Accession Number(s): [id number] cc: Charity Luna DO EXAMINATION: XR FOOT [...] 03/03/24 1106 DD/ 1049 TD/TT: 03/03/24 1058 Patient Support Associate: Charity Luna DO IMG XR PROCEDURES Edited [...] Media Lot # [id number] Lot# Expiration Date [id number] Urine 02/19/2024 11:2 2 AM EST Christian Fuchs MD POINT OF CARE TEST EN TER/EDIT ORDERABLES Final Result * Albumin, Random Urine W/Creatinine (02/18/2024 11:22 AM EST) Creatinine, Urine 209.68 mg/dL [facility] Microalbumin Urine 52.0 mg/L H [facility] Microalbum Creatinine Ratio Ur 24.7 <30 ug/mg cr [facility] Comment:Albumin/Creatinine R atio Reference Ranges: Normal: < 30 ug/mg creatinine Microalbuminuria: 30 - 300 ug/mg creatinineClinical Albuminuria: > 300 ug/mg creatinine 02/18/2024 11:2 2 AM EST 02/18/2024 1:18 PM EST us Matilde Hudson MD LAB URINE ORDERABLES Final Result Performing Organization Address [facility] Co de Phone Number [facility] [address] [place] [phone] * Proteinase-3 Antibody (02/18/2024 9:45 AM EST) Proteinase-3 Antibody <1.0 [facility] Comment:Value Interpretation ----- <1.0 No Antibody Detected > or = 1.0 Antibody DetectedAutoantibodies to proteinase-3 (SC-3) are accepted ascharacteristic for granulomatosis with polyangiitis(GPA, Brianna's), and are detectable in 95% of thehistologically proven cases. The cytoplasmic IFApattern, (c-ANCA), is based largely on autoantibody toPR-3 which serves as the primary antigen.These autoantibodies are present in active disease.THIS TEST WAS PERFORMED AT:[employer] [address] [id number] OWEN MD 02/18/2024 9:45 AM EST 02/18/2024 11:11 AM EST us Generic External Data Provider LAB BLOOD ORDERAB LES Final Result Performing Organization Address [facility] Co de Phone Number [facility] [address] [place] [phone] * Myeloperoxidase Antibody (MPO) (02/18/2024 9:45 AM EST) Myeloperoxidase Antibody <1.0 [facility] Comment:Value Interpretation ----- <1.0 No Antibody Detected > or = 1.0 Antibody DetectedAutoantibodies to myeloperoxidase (MPO) are commonlyassociated with the following small-vesselvasculitides: microscopic polyangiitis,polyarteritis nodosa, Churg-Rafi syndrome,necrotizing and crescentic glomerulonephritis andoccasionally granulomatosis with polyangiitis(GPA, Brianna's). The perinuclear IFA pattern,(p-ANCA) is based largely on autoantibody tomyeloperoxidase which serves as the primary antigen.These autoantibodies are present in active disease.THIS TEST WAS PERFORMED AT:[employer] [address] [phone]JACOB OWEN MD 02/18/2024 9:45 AM EST 02/18/2024 11:11 AM EST Generic External Data Provider LAB BLOOD ORDERAB LES Final Result Performing Organization Address [facility] de Phone Number [facility] [address] [place] [phone] * Phospholipase A2 Receptor (PLA2R) Antibody Panel (02/18/2024 9:45 AM EST) Phospholipase A2 Receptor (PLA2R) Ab, PRACHI <4 RU/mL [facility] Comment:Reference Range: <14 : NEGATIVE 14-19: BORDERLINE >19: POSITIVE Phospholipase A2 Receptor (PLA2R) Ab, IFA NEGATIVE NEGATIVE [facility] Comment:THIS TEST WAS PERFOR MED AT:[employer] [id number] ON LICENSE OF [facility] [place] [address]AXCIVGRECIA THORPE MD,PHD,LINDA 02/18/2024 9:45 AM EST 02/18/2024 11:11 AM EST Generic External Data Provider LAB BLOOD ORDERAB LES Final Result Performing Organization Address [facility] Co de Phone Number [facility] [address] [place] [phone] * Hepatitis C Antibody with Reflex to HCV, RNA, Quantitative, Real-Time PCR (02/18/2024 9:45 AM EST) Hepatitis C Antibody Nonreactive Nonreactive [facility] Comment:Antibodies to HCV no t detected; does not exclude early acuteHCV infection. 02/18/2024 9:45 AM EST 02/18/2024 11:12 AM EST Generic External Data Provider LAB BLOOD ORDERAB LES Final Result Performing Organization Address [facility] de Phone Number [facility] [address] [place] [phone] * Glomerular Basement Membrane Antibody (IgG) (02/18/2024 9:45 AM EST) Glomerular Basement Memebrane Antibody (IgG) <1.0 AI [facility] Comment:Value Interpretation ----- <1.0 No Antibody Detected > or = 1.0 Antibody DetectedTHIS TEST WAS PERFORMED AT:[facility] [place] [phone] OWEN MD 02/18/2024 9:45 AM EST 02/18/2024 11:11 AM EST Generic External Data Provider LAB BLOOD ORDERAB LES Final Result Performing Organization Address [facility] de Phone Number [facility] [address] [place] [phone] * DNA (ds) Antibody (02/18/2024 9:45 AM EST) Anti DNA DS Antibody 1 IU/mL [facility] Comment:IU/mL Interpretation < or = 4 Negative 5-9 Indeterminate > or = 10 PositiveTHIS TEST WAS PERFORMED AT:[employer] [address] [phone] OWEN MD 02/18/2024 9:45 AM EST 02/18/2024 11:11 AM EST us Generic External Data Provider LAB BLOOD ORDERAB LES Final Result Performing Organization Address [facility] Co de Phone Number [facility] [address] [place] [phone] * Hepatitis B surface antigen, EIA (02/18/2024 9:45 AM EST) Hepatitis B Surface Ag Negative Negative [facility] 02/18/2024 9:45 AM EST 02/18/2024 11:12 AM EST us Generic External Data Provider LAB BLOOD ORDERAB LES Final Result Performing Organization Address [facility] Co de Phone Number [facility] [address] [place] [phone] * Hepatitis B Core Antibody, Total (02/18/2024 9:45 AM EST) Hepatitis B Core Antibody Nonreactive Nonreactive [facility] 02/18/2024 9:45 AM EST 02/18/2024 11:12 AM EST us Generic External Data Provider LAB BLOOD ORDERAB LES Final Result Performing Organization Address [facility] de Phone Number [facility] [address] [place] [phone] * (ABNORMAL) Immunofixation, Serum (02/18/2024 9:45 AM EST) IMMUNOGLOBULIN G 1358 600 - 1640 mg/dL [facility] IMMUNOGLOBULIN A 518(A) 47 - 310 mg/dL [facility] Immunoglobulin M 57 50 - 300 mg/dL [facility] Comment:THIS TEST WAS PERFOR MED AT:[facility] [place] [phone] OWEN MD Immunofixation Result SEE NOTE [facility] Comment:Normal pattern. No m onoclonal proteins detected. 02/18/2024 9:45 AM EST 02/18/2024 11:11 AM EST Generic External Data Provider LAB BLOOD ORDERAB LES Final Result Performing Organization Address [facility] Co de Phone Number [facility] [address] [place] [phone] * Complement Component C3c (02/18/2024 9:45 AM EST) Complement C3 166 82 - 185 mg/dL [facility] Comment:THIS TEST WAS PERFOR MED AT:[facility] [place] [address]MNZVDJACOB OWEN MD 02/18/2024 9:45 AM EST 02/18/2024 11:11 AM EST Generic External Data Provider LAB BLOOD ORDERAB LES Final Result Performing Organization Address [facility] de Phone Number [facility] [address] [place] [phone] * Complement Component C4c (02/18/2024 9:45 AM EST) Complement C4 20 15 - 53 mg/dL [facility] Comment:THIS TEST WAS PERFOR MED AT:[facility] [place] [address]BIDPXANNETTE OWEN MD 02/18/2024 9:45 AM EST 02/18/2024 11:11 AM EST Generic External Data Provider LAB BLOOD ORDERAB LES Final Result Performing Organization Address [facility] de Phone Number [facility] [address] [place] [phone] * BUN (Blood Urea Nitrogen) (02/18/2024 9:45 AM EST) Urea Nitrogen (BUN) 14 9 - 16 mg/dL [facility] 02/18/2024 9:45 AM EST 02/18/2024 11:12 AM EST us Generic External Data Provider LAB BLOOD ORDERAB LES Final Result Performing Organization Address [facility] Phone Number [facility] [address] [place] [phone] * Calcium (02/18/2024 9:45 AM EST) Pathologist [facility] Calcium 9.8 8.4 - 10.2 mg/dL [facility] 02/18/2024 9:45 AM EST 02/18/2024 11:12 AM EST us Generic External Data Provider LAB BLOOD ORDERAB LES Final Result Performing Organization Address [facility] Phone Number [facility] [address] [place] [phone] * (ABNORMAL) Hepatic Function Panel (02/18/2024 9:45 AM EST) Pathologist [facility] Bilirubin, Total 0.4 0.0 - 1.0 mg/dL [facility] Bilirubin, Direct 0.1 0.0 - 0.5 mg/dL [facility] Aspartate Amino Transferase 25 5 - 37 U/L [facility] Alanine Aminotransferase 39 0 - 40 U/L [facility] Total Protein 8.7(H) 6.5 - 8.0 g/dL [facility] Albumin Level 4.8 3.5 - 5.0 g/dL [facility] Alkaline Phosphatase 113 39 - 117 U/L [facility] 02/18/2024 9:45 AM EST 02/18/2024 11:12 AM EST us Matilde Hudson MD LAB BLOOD ORDERABLES Final Result Performing Organization Address [facility] Co de Phone Number [facility] [address] [place] [phone] * (ABNORMAL) Lipid Panel, Standard (02/18/2024 9:45 AM EST) Triglycerides 319(H) <150 mg/dL [facility] Comment:Slight Lipemia.Aury able Triglyceride: less than 150 mg/dLBorderline High Triglyceride 150-199 mg/dLHigh Triglyceride: 200-499 mg/dLVery High Triglyceride: greater than or equal to 5OO mg/dL Cholesterol 176 <200 mg/dL [facility] Comment:Desirable Cholestero l: less than 200 mg/dLBorderline High Cholesterol: 200-239 mg/dLHigh Cholesterol: greater than 239 mg/dL LDL Cholesterol Calculated 75 <100 mg/dL [facility] Comment:Desirable LDL: less than 100 mg/dLNear Optimal/Above Optimal LDL: 110- 129 mg/dLBorderline High LDL: 130-159 mg/dLHigh LDL: 160-189 mg/dLVery High LDL: greater than or equal to 190 mg/dL HDL Cholesterol 38(L) >40 mg/dL [facility] Comment:Desirable HDL: great er than 40 mg/dL Note: This HDL assay may give artificially low results in patients with liver disease. 02/18/2024 9:45 AM EST 02/18/2024 11:12 AM EST us Matilde Hudson MD LAB BLOOD ORDERABLES Final Result [facility] [address] [place] [phone] [phone] * CT Abdomen Pelvis w/o Contrast (02/06/2024 12:43 PM EST) Anatomical Region Laterality Modality Body, Pelvis, Abdomen Computed T omography us Historical Provider IMG CT PROCEDURES Final R esult from Last 3 Months Insurance [facility] C3 Care Teams Wireless Cellular Technician Relationship Specialty Start Date End Date Matilde Calabrese MD [address] [place] [address] PCP - General Internal Medicine 11/23/23 Kourtney Su PharmD [address] [place] [address] Pharmacist Internal Medicine 12/05/23 Cecily Pinedo RN [address] [place] [address] Open Cut ExaminerRn Ccu 04/29/24 [facility] 01/09/24
--- OUTSIDE RECORDS SUMMARY | 2024-05-06 09:04 | XMS_ITS | Encounter Summary ---
Author Organization [employer] Address [address] [facility] 7t [place] [address] Care Team Providers Care Bar Waiter/Waitress Name Role Phone Alexandre Sandoval MD Primary Care Prov ider Matilde Calabrese MD Primary Care Provide r Kourtney Su PharmD Unavailable [phone] Cecily Pinedo RN Unavailable [phone] Cecily Pinedo RN Unavailable [phone] Encounter Details Date Type Department Care Team ([facility] Contact Info) Description 07/18/2022 Orders Only [facility] [address] [place] [phone] Belem Pedraza LPN Social History Tobacco Use [...] Upcoming Encounters Date Type Department Care Team ([facility] Contact Info) Description 05/07/2024 10:30 AM EDT Clinical Support [address] [phone] 06/02/2024 10:30 AM EDT Medication Management [address] [address] Kourtney Su, EmmaD [address] [place] [address] 06/03/2024 11:30 AM EDT Office Visit [facility] [address] [place] [address] Rodger Cole MD [address] [place], [place] 06/23/2024 11:30 AM EDT Office Visit [facility] [address] [place] [address] Matilde Calabrese MD [address] [place] [address] documented as of this encounter Visit Diagnoses Not on filedocumented in this encounter Care Teams Bar Waiter/Waitress Relationship Specialty Start Date End Date Alexandre Sandoval MD [address] [place] [address] PCP - General Internal Medicine 07/20/19 11/22/23 Matidle Calabrese MD [address] [place] [address] PCP - General Internal Medicine 11/23/23 Kourtney Su, PharmD [address] [place] [phone] Pharmacist Internal Medicine 12/05/23 Cecily Pinedo RN [address] [place] [address] Emergency NurseBird Trapper 01/08/24 04/15/24 Cecily Pinedo RN [address] [place] [address] Emergency NurseBird Trapper 04/29/24 [facility] 01/09/24 documented as of this encounter
--- OUTSIDE RECORDS SUMMARY | 2024-05-06 09:04 | XMS_ITS | Encounter Summary ---
Author Organization [employer] Address [address] [facility] [address]t [place] [address] Care Team Providers Care Filtration Plant Operator Name Role Phone Matilde Calabrese MD Primary Care Provide r Kourtney Su PharmD Unavailable [phone] Cecily Pinedo RN Unavailable [phone] Reason for Visit * Reason Onset Date Comments Care Management 04/30/2024 C3CM- f/u call Encounter Details Date Type Department Care Team ([facility] st Contact Info) Description 04/30/2024 Telephone [facility] [address] [place], [place] [phone] Matilde Calabrese MD [address] [place] [address] Care Management (C3CM- f/u call) Social History [...] t he electric, gas, oil or water [employer] threatened to shut off services in your [...] Telephone Encounter - Cecily Pinedo RN - 04/30/2024 1:35 PM EDT Patient called CM and left v/m stating his compressions stockings were approved and he should be receiving them today. * Telephone Encounter - Cecily Pinedo RN - 04/30/2024 1:28 PM EDT KENDRA Pinedo RN met with patient in person today. Patient's name, and address confirmed. Patient states is doing well with no recent illnesses or emergency room visits. Patient confirms attending visit with today. He states the visit went well. Patient given OP therapy referral today. He states he will be calling the office to schedule an appt. Per patient, scheduled to see [facility] on 05/06/24 at 9:00am. He declines PT1 to the visit. Per patient, has transportation and denies any barriers to attending. Patient states he is still being seen by the visiting nurses on a daily basis. He states they assess vitals and assist with medication administration. Per patient, taking all medications as directed. He states his blood sugars have been well controlled. Patient states he hasbeen working on his diet by eating foods that are low in salt and sugar. Per patient, has had some slip ups, but is working on it . Patient reports recent episodes of dizziness and blurry vision. Hestates the episodes have occurred while out on walks. He also states he has noted feeling dizzy with positional changes- sitting to standing. Patient states he is unsure if this may be due to his meds. Patient not checking BP with positional changes. Patient states he is making positional changes with caution. Patient does have a BP check scheduled with team RNs on 05/07. He is aware of the visit and denies any barriers to attending. He agrees to f/u sooner if symptoms persist or worsen. Patientalso reports noting an increase in abdominal bloating and gas since starting the atorvastatin. He denies any pain or GI concerns now. Patient is requesting assistance with the compression stockings. He states he was informed that the prescription was denied due to the secondary dx code that was listed on the prescription. CM will f/u with L&C and will update patient. He agrees. Patient deniesany further needs or concerns at this time. No further questions or concerns. CM reinforced direct contact information for any additional questions or concerns. Education provided on [facility] located in [facility]. Patient provided with after-hours line for [facility], , which offer night time triage service and option to transfer to implementation analyst provider if needed. Patient verbalizes understanding, and able to r epeat back to communications writer. A follow up call will be placed within 10 days, patient agrees with plan. documented in this encounter Plan of Treatment Upcoming Encounters Date Type Department Care Team ([facility] st Contact Info) Description 05/07/2024 10:30 AM EDT Clinical Support [address] [address] 06/02/2024 10:30 AM EDT Medication Management [facility] [address] [place] [address] Kourtney Su PharmD [address] [place] [address] 06/03/2024 11:30 AM EDT Office Visit [facility] [address] [place], [place] [phone] Rodger Cole MD [address] [place] [address] 06/23/2024 11:30 AM EDT Office Visit [facility] [address] [place] [phone] Matilde Calabrese MD [address] [place], [place] documented as of this encounter Visit Diagnoses Not on filedocumented in this encounter Additional Health Concerns Assessment Noted Time PHQ-9 Depression Total Score: 18 024 9:55 AM EST documented as of this encounter Care Teams Filtration Plant Operator Relationship Specialty Start Date End Date Matilde Calabrese MD [address] [place] [phone] PCP - General Internal Medicine 11/23/23 Kourtney Su PharmD [address] [place] [address] Pharmacist Internal Medicine 12/05/23 Cecily Pinedo, ROSA [address] [place] [address] Mathematics ProfessorFloatlight Loading Supervisor 04/29/24 [facility] 01/09/24 documented as of this encounter
--- OUTSIDE RECORDS SUMMARY | 2024-05-06 09:04 | XMS_ITS | Encounter Summary ---
Author Organization [employer] [facility] Address [address] [facility] 7t [place] [address] Care Team Providers Care Computer Systems Manager Name Role Phone Matilde Calabrese MD Primary Care Provide r Kourtney Su PharmD Unavailable [phone] Cecily Pinedo RN Unavailable [phone] Encounter Details Date Type Department Care Team (Late st Contact Info) Description 05/02/2024 Population Health Risk Score [facility] (C3) Department [address] [facility] [address] [place] [phone] Provider, Population Health Generic Social History Tobacco Use Types Packs/Day Years [...] Description 05/07/2024 10:30 AM EDT Clinical Support [facility] [address] [place] [address] 06/02/2024 10:30 AM EDT Medication Management [facility] [address] [place] [phone] Kourtney Su, PharmD [address] [place] [address] 06/03/2024 11:30 AM EDT Office Visit [facility] [address] [place] [address] Rodger Cole MD [address] [place] [address] 06/23/2024 11:30 AM EDT Office Visit [facility] [address] [place] [address] Matilde Calabrese MD [address] [place] [address] documented as of this encounter Visit Diagnoses Not on filedocumented in this encounter Additional Health Concerns Assessment Noted Time PHQ-9 Depression Total Score: 18 024 9:55 AM EST documented as of this encounter Care Teams Computer Systems Manager Relationship Specialty Start Date End Date Matilde Calabrese MD [address] [place] [address] PCP - General Internal Medicine 11/23/23 Kourtney Su PharmD [address] [place] [address] Pharmacist Internal Medicine 12/05/23 Cecily Pinedo RN [address] [place] [address] Miniature Train DriverNursing Technician 04/29/24 [facility] 01/09/24 documented as of this encounter
--- OUTSIDE RECORDS SUMMARY | 2024-05-06 09:04 | XMS_ITS | Encounter Summary ---
Author Organization [employer] Address 75 [facility] 7t [place] [address] Care Team Providers Care Contracts Administrator Name Role Phone Matilde Calabrese MD Primary Care Provide r Kourtney Su PharmD Unavailable [phone] Cecily Pinedo RN Unavailable [phone] Reason for Visit * Reason Comments Care Coordination Appt reminder Encounter Details Date Type Department Care Team (Latest Contact Info) Description 05/05/2024 Patient Outreach [facility] [address] [place] [address] Matilde Calabrese MD 230 [place] [address] Care Coordination (Appt reminder ) Social History Tobacco Use Types Packs/Day Years [...] encounter Progress Notes * Yue Eubanks - 05/05/2024 10:47 AM EDT CHW Yue Eubanks placed outbound call to patient introducing herself from [facility] CM Department, in regard to remind patient of appt for 05/06/24 @ 9AM with [facility] vascular 05/06/24 at 9:00am. Patient's name and was confirmed. Patient is aware and confirmed will be available and hasno barriers on attending this appointment. Patient verbalized understanding and agreed with plan. documented in this encounter Plan of Treatment Upcoming Encounters Date Type Department Care Team ([facility] st Contact Info) Description 05/07/2024 10:30 AM EDT Clinical Support [address] [address] 06/02/2024 10:30 AM EDT Medication Management [address] [address] Kourtney Su, EmmaD 230 [place] [address] 06/03/2024 11:30 AM EDT Office Visit [facility] 505 [place] [address] Rodger Cole MD 505 [place], [place] [phone] 06/23/2024 11:30 AM EDT Office Visit [facility] 230 [place] [address] Matilde Calabrese MD 230 [place] [address] documented as of this encounter Visit Diagnoses Not on filedocumented in this encounter Additional Health Concerns Assessment Noted Time PHQ-9 Depression Total Score: 18 024 9:55 AM EST documented as of this encounter Care Teams Contracts Administrator Relationship Specialty Start Date End Date Matilde Calabrese MD [address] [place] [address] PCP - General Internal Medicine 11/23/23 Kourtney Su, EmmaD [address] [place] [address] Pharmacist Internal Medicine 12/05/23 Cecily Pinedo, ROSA [address] [place] [address] Hospice Care ConsultantJourneyman Apprentice Electricians 04/29/24 [facility] 01/09/24 documented as of this encounter
--- OUTSIDE RECORDS SUMMARY | 2024-05-06 09:04 | XMS_ITS | Encounter Summary ---
Author Organization [employer] Address 75 [facility] 7t [place] [address] Care Team Providers Care Supervisor Liquefaction Name Role Phone Matilde Calabrese MD Primary Care Provide r Kourtney Su PharmD Unavailable [phone] Cecily Pinedo RN Unavailable [phone] Reason for Visit * Reason Comments Med Refill Encounter Details Date Type Department Care Team ([facility] st Contact Info) Description 05/01/2024 Refill [facility] 230 [place] [address] Matilde Calabrese MD 230 [place] [address] Social History Tobacco Use Types Packs/Day Years [...] the past 12 months, has t he [employer] gas, oil or water company threatened to [...] Description 05/07/2024 10:30 AM EDT Clinical Support [facility] [address] [place] [address] 06/02/2024 10:30 AM EDT Medication Management [facility] [address] [place] [address] Kourtney Su, PharmD [address] [place] [address] 06/03/2024 11:30 AM EDT Office Visit [facility] MED [facility] PEDS 505 [place] [address] Rodger Cole MD 505 [place] [address] 06/23/2024 11:30 AM EDT Office Visit [facility] [address] [place] [address] Matilde Calabrese MD 230 [place] [address] documented as of this encounter Visit Diagnoses Not on filedocumented in this encounter Additional Health Concerns Assessment Noted Time PHQ-9 Depression Total Score: 18 024 9:55 AM EST documented as of this encounter Care Teams Supervisor Liquefaction Relationship Specialty Start Date End Date Matilde Calabrese MD [address] [place] [address] PCP - General Internal Medicine 11/23/23 Kourtney Su PharmD [address] [place] [address] Pharmacist Internal Medicine 12/05/23 Cecily Pinedo RN [address] [place] [address] Business Management ProfessorMoisture Meter Operator 04/29/24 [facility] 01/09/24 documented as of this encounter
--- OUTSIDE RECORDS SUMMARY | 2024-05-06 09:04 | XMS_ITS | Encounter Summary ---
Author Organization [employer] Address 75 [facility] 7t [place] [address] Care Team Providers Care Shirt Hemmer Name Role Phone Matilde Calabrese MD Primary Care Provide r Kourtney Su PharmD Unavailable Reason for Visit * Reason Comments Med Refill Encounter Details Date Type Department Care Team ([facility] st Contact Info) Description 04/19/2024 Refill [facility] 230 [place], [place] [phone] Matilde Calabrese MD 230 [place], [place] [phone] Constipation, unspecified constipation type Social History Tobacco Use Types Packs/Day [...] Description 05/07/2024 10:30 AM EDT Clinical Support [facility] [address] [place] [address] 06/02/2024 10:30 AM EDT Medication Management [facility] [address] [place] [address] Kourtney Su, PharmD 230 [place] [address] 06/03/2024 11:30 AM EDT Office Visit [facility] MED [facility] PEDS 505 [place] [address] Rodger Cole MD 505 [place] [address] 06/23/2024 11:30 AM EDT Office Visit [facility]INE [address] [place] [address] Matilde Calabrese MD [address] [place] [address] documented as of this encounter Visit Diagnoses Diagnosis Constipation, unspecified constipation type documented in this encounter Additional Health Concerns Assessment Noted Time PHQ-9 Depression Total Score: 18 024 9:55 AM EST documented as of this encounter Care Teams Shirt Hemmer Relationship Specialty Start Date End Date Matilde Calabrese MD 230 [place] [address] PCP - General Internal Medicine 11/23/23 Kourtney Su PharmD 230 [place] [address] Pharmacist Internal Medicine 12/05/23 [facility] 01/09/24 documented as of this encounter
--- OUTSIDE RECORDS SUMMARY | 2024-05-06 09:04 | XMS_ITS | Encounter Summary ---
Author Organization [employer] Address [address] [facility] [address] 7t [place] [address] Care Team Providers Care Housekeeping Supervisor Name Role Phone Matilde Calabrese MD Primary Care Provide r Kourtney Su PharmD Unavailable [phone] Cecily Pinedo RN Unavailable [phone] Encounter Details Date Type Department Care Team (Latest Contact Info) Description 04/09/2024 Travel Social History Tobacco Use Types Packs/Day [...] Description 05/07/2024 10:30 AM EDT Clinical Support [facility] [address] [place] [address] 06/02/2024 10:30 AM EDT Medication Management [facility] [address] [place] [address] Kourtney Su, PharmD [address] [place] [address] 06/03/2024 11:30 AM EDT Office Visit [facility] MED & PEDS 505 [place] [address] Rodger Cole MD 505 [place] [address] 06/23/2024 11:30 AM EDT Office Visit [facility] [address] [place] [address] Matilde Calabrese MD [address] [place] [address] documented as of this encounter Visit Diagnoses Not on filedocumented in this encounter Additional Health Concerns Assessment Noted Time PHQ-9 Depression Total Score: 18 024 9:55 AM EST documented as of this encounter Care Teams Housekeeping Supervisor Relationship Specialty Start Date End Date Matilde Calabrese MD 230 [place] [address] PCP - General Internal Medicine 11/23/23 Kourtney Su PharmD 230 [place] [address] Pharmacist Internal Medicine 12/05/23 Cecily Pinedo RN 505 [place] [address] [employer]ning Rod Installer 01/08/24 04/15/24 [facility] 01/09/24 documented as of this encounter
--- OUTSIDE RECORDS SUMMARY | 2024-05-06 09:04 | XMS_ITS | Encounter Summary ---
Author Organization [employer] Address 75 [facility] 7t [place] [address] Care Team Providers Care Media Sales Consultant Name Role Phone Matilde Calabrese MD Primary Care Provide r Kourtney Su PharmD Unavailable [phone] Cecily Pinedo RN Unavailable [phone] Reason for Visit * Reason Onset Date Comments Error (VOID this visit) 04/08/2024 Encounter Details Date Type Department Care Team ([facility] st Contact Info) Description 04/08/2024 Telephone [facility] 230 [place] [address] Matilde Calabrese MD 230 [place] [address] Error (VOID this visit) Social History Tobacco Use Types Packs/Day Years [...] Description 05/07/2024 10:30 AM EDT Clinical Support [facility] [address] [place] [address] 06/02/2024 10:30 AM EDT Medication Management [facility] [address] [place] [address] Kourtney Su, PharmD 230 [place] [address] 06/03/2024 11:30 AM EDT Office Visit [facility] MED [facility] PEDS [address] [place] [address] Rodger Cole MD 505 [place] [address] 06/23/2024 11:30 AM EDT Office Visit [facility] [address] [place] [address] Matilde Calabrese MD 230 [place] [address] documented as of this encounter Visit Diagnoses Not on filedocumented in this encounter Additional Health Concerns Assessment Noted Time PHQ-9 Depression Total Score: 18 024 9:55 AM EST documented as of this encounter Care Teams Media Sales Consultant Relationship Specialty Start Date End Date Matilde Calabrese MD [address] [place] [address] PCP - General Internal Medicine 11/23/23 Kourtney Su, Samara [address] [place] [address] Pharmacist Internal Medicine 12/05/23 Cecily Pinedo RN [address] [place] [address] Bias Cutter HelperBoat Patcher Plastic 01/08/24 04/15/24 [facility] 01/09/24 documented as of this encounter
--- OUTSIDE RECORDS SUMMARY | 2024-05-06 09:05 | XMS_ITS | Encounter Summary ---
Author Organization [employer] Address 75 [facility] 7t [place] [address] Care Team Providers Care Solar Resource Assessor Name Role Phone Matilde Calabrese MD Primary Care Provide r Kourtney Su PharmD Unavailable [phone] Encounter Details Date Type Department Care Team (Latest Contact Info) Description 04/22/2024 Travel Social History Tobacco Use Types Packs/Day [...] Description 05/07/2024 10:30 AM EDT Clinical Support [address] [address] 06/02/2024 10:30 AM EDT Medication Management [address] [address] Kourtney Su, PharmD [address] [place] [address] 06/03/2024 11:30 AM EDT Office Visit [facility] CH[facility] MED & PEDS 505 [place] [address] Rodger Cole MD 505 [place] [address] 06/23/2024 11:30 AM EDT Office Visit [facility] MEDICINE [address] [place] [address] Matilde Calabrese MD [address] [place] [address] documented as of this encounter Visit Diagnoses Not on filedocumented in this encounter Additional Health Concerns Assessment Noted Time PHQ-9 Depression Total Score: 18 024 9:55 AM EST documented as of this encounter Care Teams Solar Resource Assessor Relationship Specialty Start Date End Date Matilde Calabrese MD 230 [place] [address] PCP - General Internal Medicine 11/23/23 Kourtney Su, EmmaD 230 [place] [address] Pharmacist Internal Medicine 12/05/23 [facility] 01/09/24 documented as of this encounter
--- OUTSIDE RECORDS SUMMARY | 2024-05-06 09:05 | XMS_ITS | Encounter Summary ---
Author Organization [employer] Address 75 [facility] 7t [place] [address] Care Team Providers Care Lastex Thread Winder Name Role Phone Matilde Calabrese MD Primary Care Provide r Kourtney uS PharmD Unavailable [phone] Reason for Referral * Consultation (Routine) - Authorized Specialty Diagnoses / Procedures Referred By Carola mujica Referred To Contact Vascular Surgery Diagnoses Venous insufficiency Matilde Calabrese MD [address] [place] [address] Phone: tel: fax: Chun Morrison MD [address] [place] [address] Phone: tel: fax: Referral ID Status Reason Start Date Expiration Date Visits Requested Visits Authorized [id number] Authorized Specialty Services Required 04/23/2024 04/23/2025 6 6 Encounter Details Date Type Department Care Team (Latest Contact Info) Description 04/22/2024 1:00 PM EST Office Visit [facility] [address] [place] [phone] Matilde Calabrese MD [address] [place] [phone] Essential (primary) hypertension (Primary Dx); Diabetic polyneuropathy associated with type 2 diabetes mellitus (CMS/HCC); Venous insufficiency Social History Tobacco Use Types Packs/Day Years [...] Sign Reading Time Taken Comments Blood Pressure 168/108 04/22/2024 1:38 PM EST Pulse 82 04/22/2024 1:14 PM EST Temperature 36.6 ??C (97.8 ??F) 04/22/2024 1:14 PM ES T Respiratory Rate 18 04/22/2024 1:14 PM EST Oxygen Saturation - - Inhaled Oxygen Concentration - - Weight 127 kg (279 lb 6.4 oz) 04/22/2024 1:14 PM EST Height 162.6 cm (5' 4 ) 04/22/2024 1:14 PM EST Body Mass Index 47.96 04/22/2024 1:14 PM EST documented in this encounter Progress Notes * Matilde Hudson MD - 04/22/2024 1:00 PM EST SUBJECTIVE: Raji Anderson is a 38 y.o. year old male who presents for Chronic Disease Management . Acute Concerns: Patient reports he has been having increased pain, numbness, burning sensation on his feet Patient reports he also has been noticing swelling of lower extremity, he has been using compression stockings and it has been helping a lot Patient reports he has been having high blood pressure readings at home Social History Social History Narrative Not on file Patient Active Problem List Diagnosis Type 2 diabetes mellitus with hyperglycemia, with long-term current use of insulin (CMS/[facility]) Obstructive sleep apnea syndrome Morbid obesity (CMS/HCC) Mood disorder (CMS/HCC) Gout Flat foot Essential (primary) hypertension Hidradenitis suppurativa of multiple sites Acute ankle pain Paraspinal muscle spasm JASBIR (acute kidney injury) (CMS/HCC) Acquired hypothyroidism Hospital discharge follow-up Cellulitis Chronic right shoulder pain Mixed anxiety and depressive disorder Nail disease Diabetic polyneuropathy associated with type 2 diabetes mellitus (CMS/HCC) Bilateral wrist pain LLQ abdominal pain Abscess Hypertension Kidney disease Ocular pain, right eye Acute intractable headache Venous insufficiency No family history on file. Review of Systems Constitutional: Negative. HENT: Negative. Respiratory: Negative. Cardiovascular: Positive for leg swelling. Negative for chest pain and palpitations. Musculoskeletal: Positive for arthralgias and myalgias. OBJECTIVE: Vitals: 04/22/24 1314 04/22/24 1338 BP: (!) 189/128 (!) 168/108 BP Location: Left arm Patient Position: Sitting BP Cuff Size: Large adult Pulse: 82 Resp: 18 Temp: 97.8 ??F (36.6 ??C) TempSrc: Oral Weight: 279 lb 6.4 oz (127 kg) Height: 5' 4 (1.626 m) Physical Exam Constitutional: Appearance: Normal appearance. Cardiovascular: Rate and Rhythm: Normal rate and regular rhythm. Pulmonary: Effort: Pulmonary effort is normal. Breath sounds: Normal breath sounds. Abdominal: General: Abdomen is flat. Palpations: Abdomen is soft. Musculoskeletal: Right lower leg: No edema. Left lower leg: No edema. Neurological: Mental Status: He is alert. Follow Up: Follow up for 2 weeks nurse visit BP check then 6 weeks with me uncontrolled HTN and DM . Current Outpatient Medications on File Prior to Visit Medication Sig Dispense Refill acetaminophen (Tylenol 8 Hour) 650 MG ER tablet Take 1 tablet (650 mg) by mouth every 8 (eight) hours if needed for mild pain. Do not crush, chew, or split. 50 tablet 1 amLODIPine (Norvasc) 10 MG tablet Take 1 tablet by mouth once daily 90 tablet 3 atorvastatin (Lipitor) 20 MG tablet Take 1 tablet by mouth once daily 90 tablet 3 benzoyl peroxide (Benzac AC) 10 % external wash Use to wash affected areas nightly. Please be awarethat may bleach towels/clothes. 142 g 2 Blood Glucose Monitoring Suppl (FreeStyle Lite) w/Device kit 1 Units in the morning. 1 kit 0 Blood Pressure Monitoring (Blood Pressure Cuff) misc 1 each Once daily. 1 each 0 clindamycin (Clindagel) 1 % gel Apply topically Once per day. Apply to affected areas for HS. 60 g 2 Continuous Glucose Director Of Community Services (FreeStyle Cherelle 2 [place]) device Scan sensor every 8 hours 1 each 0 Continuous Glucose Sensor (FreeStyle Cherelle 2 Sensor) misc Apply 1 sensor every 14 days 2 each 11 docusate sodium (Colace) 100 MG capsule TAKE 1 CAPSULE BY MOUTH TWICE DAILY 180 capsule 1 Dulaglutide (Trulicity) 3 MG/0.5ML solution auto-injector Inject 0.5 mL (3 mg) under the skin 1 (one) time per week. 2 mL 3 fluticasone (Flonase) 50 MCG/ACT nasal spray Administer 1-2 sprays into each nostril Once per day. Shake gently. Before first use, prime pump. After use, clean tip and replace cap. 16 g 2 FreeStyle lancets 1 each by Other route 4 times daily. 100 each 11 glucose 4 g chewable tablet Use as [...] before breakfast. 90 tablet 3 lisinopril (Prinivil) 20 MG tablet Take 1 tablet (20 mg) by mouth Once per day. 90 tablet 3 omeprazole OTC (PriLOSEC OTC) 20 MG [...] insulin administration once daily 100 each 3 [DISCONTINUED] carvedilol (Coreg) 6.25 MG tablet Take 1 tablet by mouth twice daily 180 tablet 0 [DISCONTINUED] docusate sodium (Colace) 100 MG capsule Take 1 capsule (100 mg) by mouth 2 times daily. 60 capsule 1 [DISCONTINUED] gabapentin (Neurontin) 300 MG capsule Take 1 capsule (300 mg) by mouth 3 times daily. 90 capsule 3 No current facility-administered medications on file prior to visit. Problem List Items Addressed This Visit Essential (primary) hypertension - Primary Blood pressure seems to be elevated, patient [...] with nephrology I will add to his [facility] services blood pressure monitoring and medication administration Relevant Medications carvedilol (Coreg) 12.5 MG tablet Diabetic polyneuropathy associated with type 2 diabetes mellitus ([facility]) Diabetes is: not controlled but improved - [...] Diabetic foot exam: Up-to-date -f/u 6 weeks Relevant Medications gabapentin (Neurontin) 600 MG tablet empagliflozin (Jardiance) 10 MG Venous insufficiency I will prescribe compression stockings 15-20mmhg #2 I will refer patient to vascular Relevant Orders Referral to Vascular Surgery documented in this encounter Miscellaneous Notes * Assessment & Plan Note - Matilde Hudson MD - 04/22/2024 3:07 PM EST Associated Problem(s): Essential (primary) hypertension Blood pressure seems to be elevated, patient [...] services blood pressure monitoring and medication administration * Assessment & Plan Note - Matilde Hudson MD - 04/22/2024 3:05 PM EST Associated Problem(s): Diabetic polyneuropathy associated with type 2 diabetes mellitus ([facility]) Diabetes is: not controlled but improved - [...] Diabetic foot exam: Up-to-date -f/u 6 weeks * Assessment & Plan Note - Matilde Hudson MD - 04/22/2024 1:32 PM EST Associated Problem(s): Venous insufficiency I will prescribe compression stockings 15-20mmhg #2 I will refer patient to vascular documented in this encounter Plan of Treatment Upcoming Encounters Date Type Department Care Team (Late st Contact Info) Description 05/07/2024 10:30 AM EDT Clinical Support [address] [address] 06/02/2024 10:30 AM EDT Medication Management [address] [address] Kourtney Su, PharmD 230 [place] [address] 06/03/2024 11:30 AM EDT Office Visit [facility] PEDS 505 [place] [address] Rodger Cole MD 505 [place] [address] 06/23/2024 11:30 AM EDT Office Visit [facility] [address] [place] [address] Matilde Calabrese MD [address] [place] [address] Scheduled Referrals Name Type Priority Associated Diagnoses Orde r Schedule Referral to Vascular Surgery Outpatient Referral Routine Venous insufficiency Expected: 04/22/2024 (Approximate), Expires: 04/22/2025 documented as of this encounter Visit Diagnoses Diagnosis Essential (primary) hypertension- Primary Unspecified essential hypertension Diabetic polyneuropathy associated with type 2 diabetes mellitus ([facility]) Venous insufficiency Unspecified venous (peripheral) insufficiency documented in this encounter Additional Health Concerns Assessment Noted Time PHQ-9 Depression Total Score: 18 024 9:55 AM EST documented as of this encounter Care Teams [employer]x Thread Winder Relationship Specialty Start Date End Date Matilde Calabrese MD [address] [place] [address] PCP - General Internal Medicine 11/23/23 Kourtney Su PharmD [address] [place] [address] Pharmacist Internal Medicine 12/05/23 [facility] 01/09/24 documented as of this encounter
--- OUTSIDE RECORDS SUMMARY | 2024-05-06 09:05 | XMS_ITS | Encounter Summary ---
Author Organization [employer] Address 75 [facility] 7t [place] [address] Care Team Providers Care Buffing Wheel Presser Name Role Phone Matilde Calabrese MD Primary Care Provide r Kourtney Su PharmD Unavailable [phone] Cecily Pinedo RN Unavailable [phone] Cecily Pinedo RN Unavailable [phone] Encounter Details Date Type Department Care Team ([facility] st Contact Info) Description 11/23/2023 Orders Only [facility] MED [facility] PEDS [address] [place], [place] [phone] Alexandre Sandoval MD 505 [place] [address] Type 2 diabetes mellitus with hyperglycemia, without long-term current use of insulin ([facility]) Social History Tobacco Use Types Packs/Day Years [...] 05/07/2024 10:30 AM EDT Clinical Support [address] [address] 06/02/2024 10:30 AM EDT Medication Management [address] [address] Kourtney Su, PharmD [address] [place] [address] 06/03/2024 11:30 AM EDT Office Visit [facility] P[facility]S [address] [place] [address] Rodger Cole MD [address] [place] [address] 06/23/2024 11:30 AM EDT Office Visit [facility] MEDICINE [address] [place] [address] Matilde Calabrese MD [address] [place] [address] documented as of this encounter Visit Diagnoses Diagnosis Type 2 diabetes mellitus with hyperglycemia, without long-term current use of insulin ([facility]) documented in this encounter Care Teams Buffing Wheel Presser Relationship Specialty Start Date End Date Matilde Calabrese MD [address] [place] [address] PCP - General Internal Medicine 11/23/23 Kourtney Su PharmD [address] [place] [address] Pharmacist Internal Medicine 12/05/23 Cecily Pinedo, ROSA [address] [place] [address] Neon Sign WorkerForester Aide 01/08/24 04/15/24 Cecily Pinedo RN [address] [place] [address] Neon Sign WorkerForester Aide 04/29/24 [facility] 01/09/24 documented as of this encounter
--- OUTSIDE RECORDS SUMMARY | 2024-05-06 09:05 | XMS_ITS | Encounter Summary ---
Author Organization [employer] Address [address] [facility] [address] [place] [address] Care Team Providers Care Zipper Lining Folder Name Role Phone Matilde Calabrese MD Primary Care Provide r Kourtney Su PharmD Unavailable [phone] Cecily Pinedo RN Unavailable [phone] Encounter Details Date Type Department Care Team (Late st Contact Info) Description 04/15/2024 Telephone [facility] [address] [place], [place] [phone] Matilde Calabrese MD 230 [place], [place] [phone] Social History Tobacco Use Types Packs/Day Years [...] Telephone Encounter - Cecily Pinedo RN - 04/15/2024 3:16 PM EST Patient requesting to connect to services. He reports anxiety. Also states he went through a situation on the bus earlier today and feels like he is getting very short fused. He denies SI/HI. Patientnot currently established with . Please contact patient at [phone]. Thank you. documented in this encounter Plan of Treatment Upcoming Encounters Date Type Department Care Team (Late st Contact Info) Description 05/07/2024 10:30 AM EDT Clinical Support [facility] [address] [place] [address] 06/02/2024 10:30 AM EDT Medication Management [facility] [address] [place] [address] Kourtney Su, PharmD 230 [place] [address] 06/03/2024 11:30 AM EDT Office Visit [facility] [address] [place], [place] [phone] Rodger Cole MD 505 [place] [address] 06/23/2024 11:30 AM EDT Office Visit [facility] 230 [place] [address] Matilde Calabrese MD 230 [place] [address] documented as of this encounter Visit Diagnoses Not on filedocumented in this encounter Additional Health Concerns Assessment Noted Time PHQ-9 Depression Total Score: 18 024 9:55 AM EST documented as of this encounter Care Teams Zipper Lining Folder Relationship Specialty Start Date End Date Matilde Calabrese MD [address] [place] [address] PCP - General Internal Medicine 11/23/23 Kourtney Su PharmD [address] [place] [address] Pharmacist Internal Medicine 12/05/23 Cecily Pinedo RN [address] [place] [address] Manager [employer] And Recovery Superintendent 01/08/24 04/15/24 [facility] 01/09/24 documented as of this encounter
--- OUTSIDE RECORDS SUMMARY | 2024-05-06 09:05 | XMS_ITS | Encounter Summary ---
Author Organization [employer] Address 75 [facility] 7t [place] [address] Care Team Providers Care Leadership Coach Name Role Phone Matilde Calabrese MD Primary Care Provide r Kourtney Su PharmD Unavailable [phone] Cecily Pinedo RN Unavailable [phone] Cecily Pinedo RN Unavailable [phone] Reason for Visit * Reason Onset Date Comments Call Back Request 02/29/2024 Encounter Details Date Type Department Care Team (Late st Contact Info) Description 02/29/[address] [facility] 230 [place] [address] Matilde Calabrese MD 230 [place] [address] Call Back Request Social History Tobacco Use [...] Description 05/07/2024 10:30 AM EDT Clinical [facility] [address] [place] [address] 06/02/2024 10:30 [address] ED[address] [facility] 230 [place] [address] Kourtney Su, PharmD 230 [place] [address] 06/03/2024 11:30 AM EDT Office Visit [facility] 505 [place] [address] Rodger Cole MD 505 [place] [address] 06/23/2024 11:30 AM EDT Office [facility] 230 [place] [address] Matilde Calabrese MD 230 [place] [address] documented as of this encounter Visit Diagnoses Not on filedocumented in this encounter Additional Health Concerns Assessment Noted Time PHQ-9 Depression Total Score: 18 024 9:55 AM EST documented as of this encounter Care Teams Leadership Coach Relationship Specialty Start Date End Date Matilde Calabrese MD [address] [place] [address] PCP - General Internal Medicine 11/23/23 Kourtney Su PharmD 230 [place] [address] Pharmacist Internal Medicine 12/05/23 Cecily Pinedo RN 505 [place] [address] Band SingerTrack Broom Operator 01/08/24 04/15/24 Cecily Pinedo RN 505 [place] [address] Band SingerTrack Broom Operator 04/29/24 [facility] 01/09/24 documented as of this encounter
--- OUTSIDE RECORDS SUMMARY | 2024-05-06 09:05 | XMS_ITS | Encounter Summary ---
Author Organization [employer] Address 75 [facility] 7t [place] [address] Care Team Providers Care Non Destructive Evaluation Specialist Name Role Phone Alexandre Sandoval MD Primary Care Prov ider Matilde Calabrese MD Primary Care Provide r Kourtney Su PharmD Unavailable [phone] Cecily Pinedo RN Unavailable [phone] Cecily Pinedo RN Unavailable [phone] Encounter Details Date Type Department Care Team (Late st Contact Info) Description 11/08/2023 Telephone [facility] 230 [place] [address] Marie Birmingham PharmD 230 [place] [address] Social History Tobacco Use Types Packs/Day Years [...] Please assist in obtaining discharge paperwork [facility] Patient was discharged on 11/04/2023. Thank you documented in this encounter Plan of Treatment Upcoming Encounters Date Type Department Care Team (Late st Contact Info) Description 05/07/2024 10:30 AM EDT Clinical Support [facility] [address] [place] [address] 06/02/2024 10:30 AM EDT Medication Management [facility] [address] [place] [address] Kourtney Su, PharmD [address] [place] [address] 06/03/2024 11:30 AM EDT Office Visit [facility] 505 [place] [address] Rodger Cole MD 505 [place] [address] 06/23/2024 11:30 AM EDT Office Visit [facility] [address] [place] [address] Matilde Calabrese MD [address] [place] [address] documented as of this encounter Visit Diagnoses Not on filedocumented in this encounter Care Teams Non Destructive Evaluation Specialist Relationship Specialty Start Date End Date Alexandre Sandoval MD 505 [place] [address] PCP - General Internal Medicine 07/20/19 11/22/23 Matilde Calabrese MD 230 [place] [address] PCP - General Internal Medicine 11/23/23 Kourtney Su, EmmaD [address] [place] [address] Pharmacist Internal Medicine 12/05/23 Cecily Pinedo RN 505 [place] [address] Storm Door MakerTravel Money Advisor 01/08/24 04/15/24 Cecily Pinedo RN 505 [place] [address] Storm Door MakerTravel Money Advisor 04/29/24 [facility] 01/09/24 documented as of this encounter
--- OUTSIDE RECORDS SUMMARY | 2024-05-06 09:05 | XMS_ITS | Encounter Summary ---
Author Organization [employer] Address 75 [facility] 7t [place] [address] Care Team Providers Care Map Clerk Name Role Phone Matilde Calabrese MD Primary Care Provide r Kourtney Su PharmD Unavailable [phone] Cecily Pinedo RN Unavailable [phone] Cecily Pinedo RN Unavailable [phone] Encounter Details Date Type Department Care Team ([facility] st Contact Info) Description 01/31/2024 Orders Only [facility] 230 [place] [address] Provider, MD Ari Social History Tobacco Use [...] Description 05/07/2024 10:30 AM EDT Clinical Support [facility] MED[facility]INE [address] [place] [address] 06/02/2024 10:30 AM EDT Medication Management [facility] [address] [place] [address] Kourtney Su, PharmD [address] [place] [address] 06/03/2024 11:30 AM EDT Office Visit [facility] P[facility]S 505 [place] [address] Rodger Cole MD 505 [place], [place] [phone] 06/23/2024 11:30 AM EDT Office Visit [facility] MED[facility]INE [address] [place] [address] Matilde Calabrese MD [address] [place] [address] documented as of this encounter Procedures Procedure [...] documented as of this encounter Care Teams Map Clerk Relationship Specialty Start Date End Date Matilde Calabrese MD 230 [place] [address] PCP - General Internal Medicine 11/23/23 Kourtney Su, EmmaD 230 [place] [address] Pharmacist Internal Medicine 12/05/23 Cecily Pinedo RN 505 [place] [address] Tag And Label CutterCosmetic Counselor 01/08/24 04/15/24 Cecily Pinedo RN 505 [place] [address] Tag And Label CutterCosmetic Counselor 04/29/24 [facility] 01/09/24 documented as of this encounter
--- OUTSIDE RECORDS SUMMARY | 2024-05-06 09:05 | XMS_ITS | Encounter Summary ---
Author Organization [employer] Address [address] [facility] [address] 7[address] [place] [address] Care Team Providers Care Securities Dealer Name Role Phone Matilde Calabrese MD Primary Care Provide r Kourtney Su PharmD Unavailable [phone] Encounter Details Date Type Department Care Team ([facility] st Contact Info) Description 04/23/2024 Telephone [facility] 230 [place], [place] [phone] Matilde Calabrese MD 230 [place] [address] Social History Tobacco Use Types Packs/Day Years [...] Telephone Encounter - Cecily Pinedo RN - 04/23/2024 11:57 AM EST Patient called CM to inquire on status of compression stockings. He also states he is on his way tohis pharmacy now to car pick up driver the new prescriptions that were sent by PCP yesterday. CM called [facility] Informed no prescription received. KENDRA spoke with SHERI Guillory specialist, who states she just re-faxed the prescription to [facility]. KENDRA informed patient that Rx was just faxed to [facility]. Advised he call [facility] later this afternoonto inquire on status. He agrees. documented in this encounter Plan of Treatment Upcoming Encounters Date Type Department Care Team (Late st Contact Info) Description 05/07/2024 10:30 AM EDT Clinical Support [facility] [address] [place] [address] 06/02/2024 10:30 AM EDT Medication Management [facility] [address] [place] [address] Kourtney Su, PharmD 230 [place] [address] 06/03/2024 11:30 AM EDT Office Visit [facility] [address] [place] [address] Rodger Cole MD 505 [place] [address] 06/23/2024 11:30 AM EDT Office Visit [facility] 230 [place] [address] Matilde Calabrese MD 230 [place] [address] documented as of this encounter Visit Diagnoses Not on filedocumented in this encounter Additional Health Concerns Assessment Noted Time PHQ-9 Depression Total Score: 18 024 9:55 AM EST documented as of this encounter Care Teams Securities Dealer Relationship Specialty Start Date End Date Matilde Calabrese MD [address] [place] [address] PCP - General Internal Medicine 11/23/23 Kourtney Su, EmmaD [address] [place] [address] Pharmacist Internal Medicine 12/05/23 [facility] 01/09/24 documented as of this encounter
--- OUTSIDE RECORDS SUMMARY | 2024-05-06 09:05 | XMS_ITS | Encounter Summary ---
Author Organization [employer] Address 75 [facility] 7t [place] [address] Care Team Providers Care Vice President Of Advertising Name Role Phone Matilde Calabrese MD Primary Care Provide r Kourtney Su PharmD Unavailable Reason for Visit * Reason Onset Date Comments VNA orders 04/23/2024 Encounter Details Date Type Department Care Team ([facility] st Contact Info) Description 04/23/2024 Telephone [facility]INE 230 [place], [place] [phone] Matilde Calabrese MD 230 [place] [address] VNA orders Social History Tobacco Use Types Packs/Day Years [...] Telephone Encounter - Eli Ramsay RN - 04/23/2024 9:44 AM EST TC placed to [facility] [phone] to confirm the patient is still active with services with them. RN was informed the patient is and he is seen daily. RN requested fax number to send orders to and was informed of 2 fax numbers [phone] and [phone]. RN has generated order, PCP has signed and RN has faxed to both numbers, confirmation page received. ----- Message from Nurse Jaleesa Jackson sent at 04/22/2024 3:08 PM EST ----- Per Dr. Youngblood please add medication administration and blood pressure monitoring to [facility] services. documented in this encounter Plan of Treatment Upcoming Encounters Date Type Department Care Team (Late st Contact Info) Description 05/07/2024 10:30 AM EDT Clinical Support [address] [address] 06/02/2024 10:30 AM EDT Medication Management [facility] MEDICINE [address] [place] [address] Kourtney Su PharmD [address] [place] [address] 06/03/2024 11:30 AM EDT Office Visit [facility] MED [facility] PEDS 505 [place] [address] Rodger Cole MD 505 [place] [address] 06/23/2024 11:30 AM EDT Office Visit [facility] MEDICINE [address] [place] [address] Matilde Calabrese MD [address] [place] [address] documented as of this encounter Visit Diagnoses Not on filedocumented in this encounter Additional Health Concerns Assessment Noted Time PHQ-9 Depression Total Score: 18 024 9:55 AM EST documented as of this encounter Care Teams Vice President Of Advertising Relationship Specialty Start Date End Date Matilde Calabrese MD [address] [place] [address] PCP - General Internal Medicine 11/23/23 Kourtney Su, Samara [address] [place] [address] Pharmacist Internal Medicine 12/05/23 [facility] 01/09/24 documented as of this encounter
--- OUTSIDE RECORDS SUMMARY | 2024-05-06 09:05 | XMS_ITS | Encounter Summary ---
Author Organization [employer] Address [address] [facility] [address] 7t [place] [address] Care Team Providers Care Wagon Drill Operator Name Role Phone Matilde Calabrese MD Primary Care Provide r Kourtney Su PharmD Unavailable Encounter Details Date Type Department Care Team ([facility] st Contact Info) Description 04/17/2024 Telephone [facility] 230 [place], [place] [phone] Matilde Calabrese MD 230 [place] [address] Social History Tobacco Use Types Packs/Day Years [...] Telephone Encounter - Eli Ramsay RN - 04/17/2024 3:55 PM EST TC placed to patient [phone] to offer sooner appointment for 04/22/24 at 1pm. Patient accepted sooner appointment. RN advised patient if develops SOB, pitting edema or discoloration to lower extremities to seek [facility] evaluation. Patient verbalized understanding. Patient to f/u PRN. * Telephone Encounter - Cecily Pinedo RN - 04/17/2024 2:13 PM EST Patient called CM inquiring on status of compression stockings. Patient c/o bilateral lower leg edema and pain. He reports numbness and tingling. Per patient, no redness or warmth to site. He denies CP, SOB, cough, or other symptoms. Per patient, symptoms have been present for some time. He states PCP is aware. Per patient, bought himself a pair of compression stockings several weeks ago which hefound to be useful. He states he recently lost one of the stockings and is not able to obtain another pair at this time. Per patient, elevating the extremities with no significant improvement. Patient is not scheduled to see PCP until 05/06/24. He would like to schedule a sooner f/u visit with PCP to address concerns. CM educated patient of walk in [place] and provided clinic hours. Advised a message will be sent to team nurses to follow up. He agrees. CM also contacted regarding the requested consult. Spoke with Irlanda who agrees to contact patient for follow up. documented in this encounter Plan of Treatment Upcoming Encounters Date Type Department Care Team (Late st Contact Info) Description 05/07/2024 10:30 AM EDT Clinical Support [address] [address] 06/02/2024 10:30 AM EDT Medication Management [address] [address] Kourtney Su, EmmaD [address] [place] [address] 06/03/2024 11:30 AM EDT Office Visit [facility] [address] [place] [address] Rodger Cole MD 505 [place] [address] 06/23/2024 11:30 AM EDT Office Visit [address] [address] Matilde Calabrese MD [address] [place] [address] documented as of this encounter Visit Diagnoses Not on filedocumented in this encounter Additional Health Concerns Assessment Noted Time PHQ-9 Depression Total Score: 18 024 9:55 AM EST documented as of this encounter Care Teams Wagon Drill Operator Relationship Specialty Start Date End Date Matilde Calabrese MD [address] [place] [address] PCP - General Internal Medicine 11/23/23 Kourtney Su, Samara [address] [place] [address] Pharmacist Internal Medicine 12/05/23 [facility] 01/09/24 documented as of this encounter
--- OUTSIDE RECORDS SUMMARY | 2024-05-06 09:05 | XMS_ITS | Encounter Summary ---
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 Role Phone Matilde Calabrese MD Primary Care Provide r Reason for Visit * Reason Comments Nausea Vomiting X 1 week Encounter Details Date Type Department Care Team ([facility] st Contact Info) Description 05/02/2024 2:54 PM EDT - 05/02/2024 9:39 PM EDT Emergency [facility] Emergency [address] [place] [id number] Dariel Schmidt MD [address] [place] [address] Vomiting and diarrhea (Primary Dx); Gastroesophageal reflux disease, unspecified whether esophagitis present Discharge Disposition: Home or Self Care Social History Tobacco Use Types Packs/Day Years Used Date Smoking Tobacco: Former Cigarettes Tobacco Cessation:Counseling Given: Not Answered Alcohol Use Standard Drinks/Week Comments Not Currently 0 (1 standard drink = 0.6 oz pur e alcohol) Sex and Gender Information Value Date Recorded Sex Assigned at Male 02/04/2024 10:26 AM EST Legal Sex Male 3:21 AM EST Gender Identity Male 02/04/2024 10:26 AM EST Sexual Orientation Not on file documented as of this encounter Last Filed Vital Signs Vital Sign Reading Time Taken Comments Blood Pressure 124/76 05/02/2024 6:39 PM EDT Pulse 96 05/02/2024 6:39 PM EDT Temperature 36.4 ??C (97.5 ??F) 05/02/2024 2:23 PM ED T Respiratory Rate 20 05/02/2024 6:39 PM EDT Oxygen Saturation 100% 05/02/2024 6:39 PM EDT Inhaled Oxygen Concentration - - Weight 127 kg (280 lb) 05/02/2024 2:23 PM EDT Height 170.2 cm (5' 7 ) 05/02/2024 2:23 PM EDT Body Mass Index 43.85 05/02/2024 2:23 PM EDT documented in this encounter Functional Status * Are you deaf or do you have serious difficulty hearing? Answer Date of Assessment Author No 02/04/2024 10:09 AM Tasneem Silva RN * Are you blind or do you have serious difficulty seeing, even when wearing glasses? Answer Date of Assessment Author No 02/04/2024 10:09 AM Tasneem Silva RN * Do you have serious difficulty walking or climbing stairs? Answer Date of Assessment Author No 02/04/2024 10:09 AM Tasneem Silva RN * Do you have serious difficulty dressing or bathing? Answer Date of Assessment Author No 02/04/2024 10:09 AM Tasneem Silva RN * Because of a physical, mental, or emotional condition, do you have serious difficulty doing errandsalone such as visiting the doctor? Answer Date of Assessment Author No 02/04/2024 10:09 AM Tasneem Silva RN documented as of this encounter Mental Status * Because of a physical, mental, or emotional condition, do you have serious difficulty concentrating, remembering, or making decisions? (5 years old or older) Answer Entry Date Author No 02/04/2024 10:09 AM Tasneem Silva RN documented in this encounter Discharge Instructions * Discharge Instructions* SHERI Herrera - 05/02/2024 9:15 PM EDT I am discharging you home with omeprazole 40 mg you will take once daily for the next 2 weeks. Additionally, I am providing you with Zofran to take if your nausea and vomiting persist. Diarrhea Discharge: -Take a medicine called loperamide (brand name: Imodium). It is safe if you do not have a fever or bloody bowel movements. Do not take more than the label tells you to. Taking too much loperamide hasled to serious heart problems in some people. -Drink a lot of liquids that have water, salt, and sugar. Good choices are water mixed with juice, Pedialyte, Gatorade, flavored soda, and soup broth. If you are drinking enough fluids, your urine will be light yellow or almost clear. -Try to eat a little food. Good choices are potatoes, noodles, rice, oatmeal, crackers, bananas, soup, and boiled vegetables. Salty foods help the most. -Return to the ED if you are unable to tolerate fluids, or develop severe abdominal pain, or high fever. Follow-up with your primary care doctor or gastroenterology. Follow up with your primary provider. Call tomorrow for appointment. Return to Emergency Department if symptoms worsen, do not improve, or any other concern. Get well soon! Thank you for coming to the [facility] Emergency Department today. Our entire team works together to provide you with the best care possible. Examination and treatment you received in the [...] illness in a single emergency department visit. In the event that you're unable to [...] available when you were in the emergency department. If you do not have a primary care provider, please contact one of the following to make arrangements to follow up. [facility] Shira Magy [facility] * Attachments The following attachments cannot be sent through Care Everywhere. * Acid-Reducing Medicines: General Info (Frisian) documented in this encounter Medications at Time of Discharge amoxicillin-clavulan ate (Augmentin) 875-125 mg per tablet Take 1 tablet by mouth 2 (two) times a day. 20 tablet 03/11/2024 omeprazole (PriLOSEC) [address] capsule Take 1 capsule (40 mg total) by mouth 1 (one) time each day for 14 days. Do not crush or chew. 14 each 05/02/2024 5 ondansetron ODT (ZOFRAN-ODT) 4 mg disintegrating tablet Let 1 tablet dissolve under the tongue three times daily as needed for nausea or vomiting. 10 tablet 05/02/2024 5 documented as of this encounter Ordered Prescriptions Prescription Sig Dispense Quantity Refills Last Filled Start Date End Date ondansetron ODT (ZOFRAN-ODT) 4 mg disintegrating tablet Let 1 tablet dissolve under the tongue three times daily as needed for nausea or vomiting. 10 tablet 05/02/2024 5 omeprazole (PriLOSEC) [address] capsule Take 1 capsule (40 mg total) by mouth 1 (one) time each day for 14 days. Do not crush or chew. 14 each 05/02/2024 5 documented in this encounter Discharge Disposition Disposition Code Departure Means Destination Comment s Home or Self Care documented in this encounter Progress Notes * Marvin Lewis RN - 05/02/2024 2:21 PM EDT Pt presents from home, reported vomiting with associated diarrhea, onset x 1 week- symptoms unchanged per pt. Reported recent medication added. No other complaints at present time. Alert and orientedx 3 * SHERI Herrera - 05/02/2024 2:19 PM EDT Emergency Medicine Note Patient Name: Raji Anderson Initial Evaluation: 05/02/2024 : 1985 Patient's PCP: Matilde Hudson MD Emergency Physician: SHERI Herrera History of Present Illness Chief Complaint: Chief Complaint Patient presents with Nausea Vomiting X 1 week This is a 38-year-old male with a past medical history of hypothyroidism, gastroesophageal reflux disease, hypertension and insulin-dependent diabetes presenting for evaluation of abdominal pain, bloating, nausea, vomiting and diarrhea that he has had for the past 1 week. Patient denies having any fevers or chills but states he takes omeprazole which has not been helpful for his symptoms. He denies having any dark or bloody stools, dysuria or urinary frequency. Patient has not taken any medication for treatment of his discomfort. ROS: I have performed a ROS with the pertinent positives and negatives documented in the history ofpresent illness. Previous History Past Medical History: Diagnosis Date Diabetes mellitus ([facility]) Disease of thyroid gland Hypercholesteremia Hypertension Sleep apnea Past Surgical History: Procedure Laterality Date OTHER SURGICAL HISTORY Left 04/16/2023 PROCEDURE: MI I&D BELOW FASCIA FOOT 1 BURSAL SPACE OTHER SURGICAL HISTORY Left 04/18/2023 PROCEDURE: MI INCISION BONE CORTEX FOOT; COMMENT: left, distal hallux OTHER SURGICAL HISTORY 04/18/2023 PROCEDURE: MI REPAIR INTERMEDIATE N/H/F/XTRNL GENT 2.5CM/< TOE SURGERY [...] tablet 0 Physical Exam ED Triage Vitals [05/02/24 1423] Temp Heart Rate Resp BP 36.4 ??C (97.5 ??F) 101 20 (!) 137/93 SpO2 Temp Source Heart Rate Source Patient Position 100 % Oral Monitor Sitting BP Location FiO2 (%) Right arm -- Physical Exam General: awake, calm, cooperative, no apparent distress, vital signs reviewed, patient is afebrile Skin: warm, dry, no diaphoresis Eyes: EOMI, no photophobia, no nystagmus Respiratory: clear to auscultation bilaterally throughout Cardiovascular: regular rate and rhythm, no murmur Gastrointestinal: soft, epigastric and LLQ tenderness with guarding, no rebound tenderness, abdomenis nondistended, normal active bowel sounds Musculoskeletal: patient able to move all four extremities Neurological: alert and oriented X3, no focal deficits Psychiatric: stable mood and affect, fluid speech, good eye contact and appropriate demeanor Results Labs Reviewed COMPREHENSIVE METABOLIC PANEL - Abnormal Result Value Sodium 137 Potassium 4.2 Chloride 104 CO2 25 Anion Gap 8 Glucose 148 (*) BUN 11 Creatinine 0.92 eGFR 110 BUN/Creatinine Ratio 12.0 Calcium 9.6 AST (SGOT) 15 ALT (SGPT) 21 Alkaline Phosphatase 98 Total Protein 8.5 (*) Albumin 4.4 Total Bilirubin 0.8 CBC WITH AUTO DIFFERENTIAL - Abnormal WBC 12.4 (*) RBC 4.70 Hemoglobin 14.1 Hematocrit 40.5 (*) MCV 86.9 MCH 30.3 MCHC 34.8 RDW 12.3 Platelets 347 MPV 10.3 NRBC 0.0 NRBC Absolute 0.00 Neutrophils Relative 65.7 Lymphocytes Relative 22.2 Monocytes Relative 7.1 Eosinophils Relative 4.3 Basophils Relative 0.3 Immature Granulocytes Relative 0.4 Neutrophils Absolute 8.16 (*) Lymphocytes Absolute 2.76 Monocytes Absolute 0.88 Eosinophils Absolute 0.53 (*) Basophils Absolute 0.04 Immature Granulocytes Absolute 0.05 (*) MAGNESIUM - Normal Magnesium 2.2 LIPASE - Normal Lipase 33 CBC AND DIFFERENTIAL Narrative: The following orders were created for panel order CBC and differential. Procedure Abnormality Status --------- ------ CBC auto differential[[id number]] Abnormal Final result Please view results for these tests on the individual orders. Abnormal Labs Reviewed COMPREHENSIVE METABOLIC PANEL - Abnormal; Notable for the following components: Result Value Glucose 148 (*) Total Protein 8.5 (*) All other components within normal limits CBC WITH AUTO DIFFERENTIAL - Abnormal; Notable for the following components: WBC 12.4 (*) Hematocrit 40.5 (*) Neutrophils Absolute 8.16 (*) Eosinophils Absolute 0.53 (*) Immature Granulocytes Absolute 0.05 (*) All other components within normal limits CT Abdomen Pelvis wo Contrast Final Result Impression: 1. No acute abnormalities. Specifically, no CT evidence of diverticulitis. This document has been electronically signed by: Bang Mcdonald MD on 05/02/2024 19:24:06 I have discussed the incidental/abnormal imaging and/or lab abnormalities with the patient and haveinstructed them the need for further evaluation and workup with their primary care doctor. The laboratory results, imaging results and other diagnostic exam results were reviewed in the EMR. EKG Interpretation Critical Care Time None ? Differential Diagnosis Gastritis Diverticulitis Appendicitis Hyperglycemia Medical Decision Making Medical Decision Making Patient was seen and evaluated. His medical history and surgical history is reviewed. Laboratories are reviewed and CT imaging will be obtained. Medications ondansetron (PF) (ZOFRAN) injection 4 mg (4 mg intravenous Given 05/02/24 1600) sodium chloride 0.9 % bolus 1,000 mL (0 mL intravenous Stopped 05/02/241758) morphine injection 4 mg (4 mg intravenous Given 05/02/241717) ondansetron (PF) (ZOFRAN) injection 4 mg (4 mg intravenous Given 05/02/241755) barium sulfate (READI-CAT 2) 2 % (w/v) suspension 450 mL (450 mL oral Given 05/02/241844) haloperidol lactate (HALDOL) injection 2 mg (2 mg intravenous Given 05/02/241922) aluminum-magnesium hydroxide-simethicone (MAALOX) 200-200-20 mg/5 mL suspension 30 mL (30 mL oral Given 05/02/242030) lidocaine (XYLOCAINE) 2 % mouth solution 15 mL (15 mL Mouth/Throat Given 05/02/242030) ED Course as of 05/02/242114May 02, 20241947 There were no acute findings noted on CT imaging of the abdomen or pelvis. [RO] 1947 Patient will be given a GI cocktail and reevaluated thereafter. [RO] ED Course User Index [RO] SHERI Herrera Clinical Impressions as of 05/02/242114 Vomiting and diarrhea Gastroesophageal reflux disease, unspecified whether esophagitis present Procedures Procedures Diagnosis 1. Vomiting and diarrhea 2. Gastroesophageal reflux disease, unspecified whether esophagitis present Disposition Discharge ED Prescriptions Medication Sig Dispense Start Date End Date Auth. Provider omeprazole (PriLOSEC) [address] capsule Take 1 capsule (40 mg total) by mouth 1 (one) time each day for 14 days. Do not crush or chew. 14 each 05/02/2024 05/16/2024 SHERI Herrera ondansetron ODT (ZOFRAN-ODT) 4 mg disintegrating tablet Let 1 tablet dissolve under the tongue three times daily as needed for nausea or vomiting. 10 tablet 05/02/2024 05/09/2024 SHERI Herrera Physician Attestation SHERI Herrera 05/02/24 1728 SHERI Herrera 05/02/242055 SHERI Herrera 05/02/242114 Cosigned by Dariel Schmidt MD at 05/02/2024 11:21 PM EDT documented in this encounter Plan of Treatment Not on file documented as of this encounter Procedures Procedure Name Priority Date/Time Associated Diagnosis Comments CT ABDOMEN PELVIS WO CONTRAST STAT 05/02/2024 6:48 PM EDT CBC WITH AUTO DIFFERENTIAL STAT 05/02/2024 2:43 PM EDT CBC AND DIFFERENTIAL STAT 05/02/2024 2:43 PM EDT MAGNESIUM STAT 05/02/2024 2:43 PM EDT LIPASE STAT 05/02/2024 2:43 PM EDT COMPREHENSIVE METABOLIC PANEL STAT 05/02/2024 2:43 PM EDT documented in this encounter Results * CT Abdomen Pelvis wo Contrast (05/02/2024 6:48 PM EDT) Anatomical Region Laterality Modality Body Computed Tomogra phy 05/02/2024 7:24 PM EDT Impressions 05/02/2024 7:24 PM EDT Impression: 1. No acute abnormalities. Specifically, no CT evidence of diverticulitis. This document has been electronically signed by: Bang Mcdonald MD on 05/02/2024 19:24:06 Narrative 05/02/2024 7:24 PM EDT INDICATION: Diverticulitis suspected Exam: Unenhanced CT abdomen and pelvis with multiplanar reformats. Comparison: None. Findings: CT abdomen: Lung bases are clear. Liver is free of focal lesions and ductal dilatation. Gallbladder is unremarkable. Spleen is unremarkable. Pancreas and adrenal glands appear unremarkable. Right kidney reveals a punctate nonobstructing lower pole calculus (3; 78). Kidneys otherwise unremarkable. No ureteral stones or hydroureteronephrosis. No free intraperitoneal fluid or retroperitoneal masses or adenopathy. Abdominal aorta is normal caliber. Bowel loops reveal no abnormal wall thickening or distention. The appendix is unremarkable. No significant diverticular disease. CT pelvis: Calcification of the vas deferens suggest history of diabetes mellitus. Otherwise no pelvic masses, fluid or adenopathy. Urinary bladder is free of gross filling defects. Osseous structures reveal no destructive osseous lesions. Procedure Note Bang Mcdonald MD - 05/02/2024 INDICATION: Diverticulitis suspected Exam: Unenhanced CT abdomen and pelvis with multiplanar reformats. Comparison: None. Findings: CT abdomen: Lung bases are clear. Liver is free of focal lesions and ductal dilatation. Gallbladder is unremarkable. Spleen is unremarkable. Pancreas and adrenal glands appear unremarkable. Right kidney reveals a punctate nonobstructing lower pole calculus (3; 78). Kidneys otherwise unremarkable. No ureteral stones or hydroureteronephrosis. No free intraperitoneal fluid or retroperitoneal masses or adenopathy. Abdominal aorta is normal caliber. Bowel loops reveal no abnormal wall thickening or distention. Theappendix is unremarkable. No significant diverticular disease. CT pelvis: Calcification of the vas deferens suggest history of diabetes mellitus. Otherwise no pelvic masses, fluid or adenopathy. Urinarybladder is free of gross filling defects. Osseous structures reveal no destructive osseous lesions. IMPRESSION: Impression: 1. No acute abnormalities. Specifically, no CT evidence ofdiverticulitis. This document has been electronically signed by: Bang Mcdonald MD on 05/02/2024 19:24:[address] [place] [address] PROCEDURES Final Re sult * (ABNORMAL) CBC auto differential (05/02/2024 2:43 PM EDT) [facility] Signature WBC 12.4(H) 4.8 - 10.8 K/mcL LAB HEMETOLOGY METHOD 05/02/2024 3:21 PM EDT [facility] RBC 4.70 4.50 - 5.50 M/mcL LAB HEMETOLOGY METHOD 05/02/2024 3:21 PM EDT [facility] Hemoglobin 14.1 13.5 - 17.5 g/dL LAB HEMETOLOGY [facility] Hematocrit 40.5(L) 42.0 - 54.0 % LAB HEMETOLOGY METHOD 05/02/2024 3[facility] MCV 86.9 79.0 - 98.0 FL LAB HEMETOLOGY METHOD 05/02/2024 3[facility] MCH 30.3 27.0 - 32.0 pcg LAB HEMETOLOGY METHOD 05/02/2024 3[facility] MCHC 34.8 32.0 - 37.0 g/dL LAB HEMETOLOGY METHOD 05/02/2024 3[facility] RDW 12.3 11.0 - 15.0 % LAB HEMETOLOGY METHOD 05/02/2024 3:[facility] Platelets 347 130 - 400 K/mcL LAB HEMETOLOGY METHOD 05/02/2024 3:21 PM EDT [facility] MPV 10.3 7.0 - 11.0 FL LAB HEMETOLOGY METHOD 05/02/2024 3[facility] NRBC 0.0 <1.0 % LAB HEMETOLOGY METHOD 05/02/2024 3:21 PM EDT [facility] NRBC Absolute 0.00 <0.10 K/mcL LAB HEMETOLOGY METHOD 05/02/2024 3:21 PM EDT [facility] Neutrophils Relative 65.7 % LAB HEMETOLOGY METHOD 05/02/2024 3:21 PM [facility] Lymphocytes Relative 22.2 % LAB HEMETOLOGY METHOD 05/02/2024 3:21 PM [facility] Monocytes Relative 7.1 % LAB HEMETOLOGY METHOD 05/02/2024 3:21 PM [facility] Eosinophils Relative 4.3 % LAB HEMETOLOGY METHOD 05/02/2024 3:21 PM [facility] Basophils Relative 0.3 % LAB HEMETOLOGY METHOD 05/02/2024 3:21 PM [facility] Immature Granulocytes Relative 0.4 % LAB HEMETOLOGY METHOD 05/02/2024 3:21 PM [facility] Neutrophils Absolute 8.16(H) 1.50 - 7.00 K/mcL LAB HEMETOLOGY METHOD 05/02/2024 3:21 PM [facility] Lymphocytes Absolute 2.76 1.00 - 5.00 K/mcL LAB HEMETOLOGY METHOD 05/02/2024 3:21 PM [facility] Monocytes Absolute 0.88 0.20 - 1.00 K/mcL LAB HEMETOLOGY METHOD 05/02/2024 3:21 PM [facility] Eosinophils Absolute 0.53(H) 0.00 - 0.50 K/mcL LAB HEMETOLOGY METHOD 05/02/2024 3:21 PM [facility] Basophils Absolute 0.04 0.00 - 0.20 K/mcL LAB HEMETOLOGY METHOD 05/02/2024 3:21 PM [facility] Immature Granulocytes Absolute 0.05(H) 0.00 - 0.03 K/mcL LAB HEMETOLOGY METHOD 05/02/2024 3:21 PM EDT [facility] Blood Venous blood specimen / Unknown Venipuncture / Unknown 05/02/2024 2:43 PM EDT 05/02/2024 3:16 PM EDT Dariel Schmidt MD LAB BLOOD ORDERABLES Aisha l Result Performing Organization Address City/[facility]/ZIP Co de Phone Number [facility] [address] [place] [address], [place] [phone] * Lipase (05/02/2024 2:43 PM EDT) Lipase 33 13 - 75 unit/L LAB CHEMISTRY METHOD 05/02/2024 3:48 PM EDT [facility] Blood Venous blood specimen / Unknown Venipuncture / Unknown 05/02/2024 2:43 PM EDT 05/02/2024 3:16 PM EDT Dariel Schmidt MD LAB BLOOD ORDERABLES Aisha l Result Performing Organization Address [facility] de Phone Number [facility] [address] [place] [address], [place] [phone] * Magnesium (05/02/2024 2:43 PM EDT) Magnesium 2.2 1.9 - 2.6 mg/dL LAB CHEMISTRY METHOD 05/02/2024 3:48 PM EDT [facility] Blood Venous blood specimen / Unknown Venipuncture / Unknown 05/02/2024 2:43 PM EDT 05/02/2024 3:16 PM EDT Dariel Schmidt MD LAB BLOOD ORDERABLES Aisha l Result Performing Organization Address City/[facility]/ZIP Co de Phone Number [facility] [address] [place] [address], [place] [phone] * (ABNORMAL) Comprehensive metabolic panel (05/02/2024 2:43 PM EDT) Sodium 137 133 - 145 mmol/L LAB CHEMISTRY METHOD 05/02/2024 3:49 PM [facility] Potassium 4.2 3.5 - 5.5 mmol/L LAB CHEMISTRY METHOD 05/02/2024 3:49 PM [facility] Chloride 104 96 - 110 mmol/L LAB CHEMISTRY METHOD 05/02/2024 3:49 PM [facility] CO2 25 21 - 32 mmol/L LAB CHEMISTRY METHOD 05/02/2024 3:49 PM [facility] Anion Gap 8 3 - 11 LAB CHEMISTRY METHOD 05/02/2024 3:49 PM [facility] Glucose 148(H) 70 - 100 mg/dL LAB CHEMISTRY METHOD 05/02/2024 3:49 PM [facility] BUN 11 5 - 25 mg/dL LAB CHEMISTRY METHOD 05/02/2024 3:49 PM [facility] Creatinine 0.92 0.70 - 1.30 mg/dL LAB CHEMISTRY METHOD 05/02/2024 3:49 PM [facility] eGFR 110 >=60 mL/min/1. 73m2 LAB CHEMISTRY METHOD 05/02/2024 3:49 PM [facility] Comment:Calculation based on the??Chronic Kidney Disease Epidemiology Collaboration (CKD-EPI) equation refit??without adjustment for race. BUN/Creatinine Ratio 12.0 LAB CHEMISTRY METHOD 05/02/2024 3:49 PM [facility] Calcium 9.6 8.5 - 10.5 mg/dL LAB CHEMISTRY METHOD 05/02/2024 3:49 PM [facility] AST (SGOT) 15 10 - 42 unit/L LAB CHEMISTRY METHOD 05/02/2024 3:49 PM [facility] ALT (SGPT) 21 10 - 60 unit/L LAB CHEMISTRY METHOD 05/02/2024 3:49 PM EDT [facility] Alkaline Phosphatase 98 42 - 121 unit/L LAB CHEMISTRY METHOD 05/02/2024 3:49 PM EDT [facility] Total Protein 8.5(H) 6.0 - 8.0 g/dL LAB CHEMISTRY METHOD 05/02/2024 3:49 PM EDT [facility] Albumin 4.4 3.2 - 5.0 g/dL LAB CHEMISTRY METHOD 05/02/2024 3:49 PM EDT [facility] Total Bilirubin 0.8 0.0 - 1.4 mg/dL LAB CHEMISTRY METHOD 05/02/2024 3:49 PM EDT [facility] Blood Venous blood specimen / Unknown Venipuncture / Unknown 05/02/2024 2:43 PM EDT 05/02/2024 3:16 PM EDT us Dariel Schmidt MD LAB BLOOD ORDERABLES Aisha banda Result [facility] [address] [place] [address], documented in this encounter Visit Diagnoses Diagnosis Vomiting and diarrhea- Primary Gastroesophageal reflux disease, unspecified whether esophagitis present documented in this encounter Administered Medications Inactive Administered Medications - up to 3 most recent administrations Medication Order MAR Action Action Date Dose Rate Site aluminum-magnesium hydroxide-simethicone (MAALOX) 200-200-20 mg/5 mL suspension 30 mL 30 mL, oral, Once, On Sun05/02/24 at 1953, For 1 dose Given 05/02/2024 8:31 PM EDT 30 mL barium sulfate (READI-CAT 2) 2 % (w/v) suspension 450 mL 450 mL, oral, Once in imaging, Starting on Sun05/02/24 at 1836, For 1 dose Given 05/02/2024 6:45 PM EDT 450 mL haloperidol lactate (HALDOL) injection 2 mg 2 mg, intravenous, Once, On Sun05/02/24 at 1857, For 1 dose, May be ordered via either intramuscular or intravenous route. If ordered IV, maximum of 5 mg/minute. Given 05/02/2024 7:23 PM EDT 2 mg lidocaine (XYLOCAINE) 2 % mouth solution 15 mL 15 mL, Mouth/Throat, Once, On Sun05/02/24 at 1953, For 1 dose Given 05/02/2024 8:31 PM EDT 15 mL morphine injection 4 mg 4 mg, intravenous, Once, On Sun05/02/24 at 1712, For 1 dose Given 05/02/2024 5:18 PM EDT 4 mg ondansetron (PF) (ZOFRAN) injection 4 mg 4 mg, intravenous, Once, On Sun05/02/24 at 1533, For 1 dose Given 05/02/2024 4:00 PM EDT 4 mg ondansetron (PF) (ZOFRAN) injection 4 mg 4 mg, intravenous, Once, On Sun05/02/24 at 1753, For 1 dose Given 05/02/2024 5:56 PM EDT 4 mg sodium chloride 0.9 % bolus 1,000 mL 1,000 mL, intravenous, at 2,000 mL/hr, Administer over 30 Minutes, Once, On Sun05/02/24 at 1533, For 1 dose New Bag 05/02/2024 4:01 PM EDT 1,000 mL 2000 mL/hr documented in this encounter Active and Recently Administered Medications Times are shown in EDT. Scheduled Medication Order 04/30/2024 05/01/2024 05/02/2024 aluminum-magnesium hydroxide-simethicone (MAALOX) 200-200-20 mg/5 mL suspension 30 mL (COMPLETED) 30 mL, oral, Once, On Sun05/02/24 at 1953, For 1 dose 2030 (Given - Provid er: Vicki Hinton RN) barium sulfate (READI-CAT 2) 2 % (w/v) suspension 450 mL (COMPLETED) 450 mL, oral, Once in imaging, Starting on Sun05/02/24 at 1836, For 1 dose 1844 (Given - Provid er: Oxana Mccabe) haloperidol lactate (HALDOL) injection 2 mg (COMPLETED) 2 mg, intravenous, Once, On Sun05/02/24 at 1857, For 1 dose, May be ordered via either intramuscular or intravenous route. If ordered IV, maximum of 5 mg/minute. 1923 (Given - Provid er: Vicki Hinton RN) lidocaine (XYLOCAINE) 2 % mouth solution 15 mL (COMPLETED) 15 mL, Mouth/Throat, Once, On Sun05/02/24 at 1953, For 1 dose 203 (Given - Provid er: Vicki Hinton RN) morphine injection 4 mg (COMPLETED) 4 mg, intravenous, Once, On Sun05/02/24 at 1712, For 1 dose 1718 (Given - Provid er: Sy Quezada RN) ondansetron (PF) (ZOFRAN) injection 4 mg (COMPLETED) 4 mg, intravenous, Once, On Sun05/02/24 at 1533, For 1 dose 1600 (Given - Provid er: Lesvia Trinidad RN) ondansetron (PF) (ZOFRAN) injection 4 mg (COMPLETED) 4 mg, intravenous, Once, On Sun05/02/24 at 1753, For 1 dose 1756 (Given - Provid er: Lesvia Trinidad RN) sodium chloride 0.9 % bolus 1,000 mL (COMPLETED) 1,000 mL, intravenous, at 2,000 mL/hr, Administer over 30 Minutes, Once, On Sun05/02/24 at 1533, For 1 dose 1601 (New Bag - Prov ider: Lesvia Trinidad RN)1759 (Stopped - Provider: Lesvia Trinidad RN) documented in this encounter Orders Medications Ordered That Reinier ht Not Have Been Administered Count Last Ordered Date First Ordered Date methylPREDNISolone sodium romero cc (SOLU-Medrol) injection 60 mg 1 05/02/2024 documented in this encounter Care Teams Nitric Acid Plant Operator Relationship Specialty Start Date End Date Matilde Calabrese MD [address] [phone] PCP - General 11/22/23 documented as of this encounter
--- OUTSIDE RECORDS SUMMARY | 2024-05-06 09:05 | XMS_ITS | Encounter Summary ---
Author Organization [employer] Address [address] [facility] [address] [place] [address] Care Team Providers Care International Relations Professor Name Role Phone Matilde Calabrese MD Primary Care Provide r Kourtney Su PharmD Unavailable [phone] Cecily Pinedo RN Unavailable [phone] Reason for Visit * Reason Comments Care Coordination Follow up Encounter Details Date Type Department Care Team (Latest Contact Info) Description 04/15/2024 Patient Outreach [facility] [address] [place] [address] Matilde Calabrese MD [address] [place] [address] Care Coordination (Follow up) Social History Tobacco Use Types Packs/Day Years [...] encounter Progress Notes * Yue Eubanks - 04/15/2024 3:33 PM EST CHW Yue Eubanks/KENDRA Pinedo RN placed outbound call to patient for follow up on SDOH needs. Patient's name, and address confirmed. Patient states is doing well. No further questions or concerns. CHW reinforced direct contact information for any additional questions or concerns and extended clinic hours on Mondays and Wednesdays, and Walk-In Urgent Care Located in [facility]. Patient provided with after-hours line for [facility], , which offer nighttime triage service and option to transfer to cinnamon grinder provider if needed. CHW discussed with the patient progress made in the CHW Program. Patient notified is being graduated from the Care Management-CHW Program. Patient was educated on how to receive SDOH services in the future. Patient agrees with the plan and will contact us if any future needs arise. documented in this encounter Plan of Treatment Upcoming Encounters Date Type Department Care Team (Late st Contact Info) Description 05/07/2024 10:30 AM EDT Clinical Support [address] [phone] 06/02/2024 10:30 AM EDT Medication Management [address] [address] Kourtney Su PharmD [address] [place] [phone] 06/03/2024 11:30 AM EDT Office Visit [facility] [address] [place], [place] [phone] Rodger Cole MD [address] [place], [place] [phone] 06/23/2024 11:30 AM EDT Office Visit [address] [address] Matilde Calabrese MD [address] [place] [phone] documented as of this encounter Visit Diagnoses Not on filedocumented in this encounter Additional Health Concerns Assessment Noted Time PHQ-9 Depression Total Score: 18 024 9:55 AM EST documented as of this encounter Care Teams International Relations Professor Relationship Specialty Start Date End Date Matilde Calabrese MD [address] [place] [phone] PCP - General Internal Medicine 11/23/23 Kourtney Su, PharmD [address] [place] [phone] Pharmacist Internal Medicine 12/05/23 Cecily Pinedo RN [address] [place] [phone] Receiving ManagerDinkey Operator 01/08/24 04/15/24 [facility] 01/09/24 documented as of this encounter
--- OUTSIDE RECORDS SUMMARY | 2024-05-06 09:05 | XMS_ITS | Clinical Summary ---
Author Organization [facility] Address [address] [place] [address] Phone Care Team Providers Care Clock Mechanic Name Role Phone Matilde Calabrese MD Primary Care Provide r Allergies Active Allergy Reactions Criticality Noted Date Comments Ibuprofen Renal Impairment 12/24/2023 Iodinated Contrast Media Renal Impairment 12/23 Medications amoxicillin-clavula dayami (Augmentin) 875-125 mg per tablet Take 1 tablet by mouth 2 (two) times a day. 20 tablet 5 Active omeprazole (PriLOSEC) [address] capsule Take 1 capsule (40 mg total) by mouth 1 (one) time each day for 14 days. Do not crush or chew. 14 each 5 05/17/19 25 Active ondansetron ODT (ZOFRAN-ODT) 4 mg disintegrating tablet Let 1 tablet dissolve under the tongue three times daily as needed for nausea or vomiting. 10 tablet 5 05/10/19 25 Active Active Problems Problem Noted Date Diagnosed Date Sleep apnea Encounters Date Type Department Care Team Description 05/02/2024 2:54 PM EDT - 05/02/2024 9:39 PM EDT Emergency [facility] Emergency [address] [place] [phone] Dariel Schmidt MD Vomiting and diarrhea (Primary Dx); Gastroesophageal reflux disease, unspecified whether esophagitis present Discharge Disposition: Home or Self Care 03/16/2024 12:17 PM EST - 03/16/2024 6:31 PM EST [facility] Emergency [address] [place] [phone] Jcarlos LuxDO Seamus Esparza Parth B, MD Acute nonintractable headache, unspecified headache type (Primary Dx) Discharge Disposition: Home or Self Care 03/11/2024 8:45 AM EST Office Visit Orthopedic Surgery [facility] [address] [phone] Elias Agee DPM Cellulitis of left foot (Primary Dx); Dermatophytosis of nail; Ingrowing nail; Diabetic mononeuropathy simplex (CMS/HCC); Pain in toe of left foot; Pain in toe of right foot 03/09/2024 10:05 PM EST - 03/10/2024 1:10 AM EST [address] [phone] Ocular migraine (Primary Dx) Discharge Disposition: Home or Self Care 03/07/2024 9:30 AM EST Clinical Support General [address] [phone] Visit for suture removal (Primary Dx) 02/22/2024 10:30 AM EST Procedure visit [address] [phone] Nic Nieto MD Epidermal inclusion cyst (Primary Dx) 02/06/2024 1:39 PM EST - 02/06/2024 8:10 PM EST [facility] Emergency [address] [place] [address] [phone] MD Rhinovirus (Primary Dx); Cellulitis of neck Discharge Disposition: Home or Self Care from Last 3 Months Surgical History Surgery Date Site/Laterality Comments OTHER SURGICAL HISTORY 04/16/2023 Left PROCEDURE: UT I&D BELOW FASCIA FOOT 1 BURSAL SPACE OTHER SURGICAL HISTORY 04/18/2023 Left PROCEDURE: UT INCISION BONE CORTEX FOOT; COMMENT: left, distal hallux OTHER SURGICAL HISTORY 04/18/2023 PROCEDURE: UT REPAIR INTERMEDIATE N/H/F/XTRNL GENT 2.5CM/< TOE SURGERY Left Medical History Medical History Date Comments Diabetes mellitus (CMS/HCC) Hypertension Disease of thyroid gland Sleep apnea Hypercholesteremia Social History Tobacco Use Types Packs/Day Years [...] AM EST Sexual Orientation Not on file Obstetrics History Last Filed [...] Mass Index 43.85 05/02/2024 2:23 PM EDT Plan of Treatment Health Maintenance Due Date Last Done Comments Diabetes: Annual Foot Exam 1996 HIV Screening 01/22/2022 Social Influencers of Health Screening 01/22/2022 COVID-19 Vaccine ( season) 2023 04/09/2020, 03/12/2020 Diabetes: Annual Urine Albumin-Creatinine Ratio (uACR) 12/25/2023 07/25/2022 Hepatitis B Vaccines (3 of - 19+ 3-dose series) 06/04/2024 02/18/2024, 12/05/2023 Diabetes: Blood Sugar Control Test (HGBA1C) 09/18/2024 03/21/2024, 02/18/2024, 11/14/2023 Depression Screening 12/26/2024 12/27/2023 Diabetes: Annual Retina Eye Exam 03/12/2025 03/12/2024 Diabetes: Annual GFR (Glomerular Filtration Rate) 05/02/2025 05/02/2024, 03/16/2024, 03/12/2024, Additional history exists Hypertension/CHF/CAD Annual BMP Blood Test 05/02/2025 05/02/2024, 03/16/2024, 03/12/2024, Additional history exists DTaP,Tdap,and Td Vaccines (3 [...] patient's age to complete this topic Meningococcal B Vacine Aged Out No lo nger eligible based on patient's age to complete [...] AUTO DIFFERENTIAL STAT 05/02/2024 2:43 PM EDT LIPASE STAT 05/02/2024 2:43 PM EDT MAGNESIUM STAT 05/02/2024 2:43 PM EDT COMPREHENSIVE METABOLIC PANEL STAT 05/02/2024 2:43 PM EDT CBC AND DIFFERENTIAL STAT 05/02/2024 2:43 PM EDT RESPIRATORY VIRUS PANEL MOLECULAR STUDY STAT 03/16/2024 [...] BLOOD Routine 02/06/2024 6: 58 AM EST from Last 3 Months Results * CT Abdomen Pelvis wo Contrast (05/02/2024 6:48 PM EDT) Only the most recent of2 resultswithin the time period is included. Anatomical Region Laterality Modality Body Computed Tomogra [...] Mcdonald MD on 05/02/2024 19:24:[address] PROCEDURES Final Re sult * (ABNORMAL) CBC auto differential (05/02/2024 2:43 PM EDT) Only the most recent of4 resultswithin the time period is included. WBC 12.4(H) 4.8 - 10.8 K/mcL LAB [facility] RBC 4.70 4.50 - 5.50 M/mcL LAB HEMETOLOGY METHOD 05/02/2024 3:[facility] Hemoglobin 14.1 13.5 - 17.5 g/dL LAB HEMETOLOGY METHOD 05/02/2024 3:[facility] PM [facility] Hematocrit 40.5(L) 42.0 - 54.0 % LAB HEMETOLOGY METHOD 05/02/2024 3:[facility] PM [facility] MCV 86.9 79.0 - 98.0 FL LAB HEMETOLOGY METHOD 05/02/2024 3:[facility] PM [facility] MCH 30.3 27.0 - 32.0 pcg LAB HEMETOLOGY METHOD 05/02/2024 3:21 PM [facility] MCHC 34.8 32.0 - 37.0 g/dL LAB HEMETOLOGY METHOD 05/02/2024 3:21 PM [facility] RDW 12.3 11.0 - 15.0 % LAB HEMETOLOGY METHOD 05/02/2024 3:21 PM [facility] Platelets 347 130 - 400 K/mcL LAB HEMETOLOGY METHOD 05/02/2024 3:21 PM [facility] MPV 10.3 7.0 - 11.0 FL LAB HEMETOLOGY METHOD 05/02/2024 3:21 PM [facility] NRBC 0.0 <1.0 % LAB HEMETOLOGY METHOD 05/02/2024 3:21 PM [facility] NRBC Absolute 0.00 <0.10 K/mcL LAB HEMETOLOGY METHOD 05/02/2024 3:21 PM [facility] Neutrophils Relative 65.7 % LAB HEMETOLOGY METHOD 05/02/2024 3:21 PM [facility] Lymphocytes Relative 22.2 % LAB HEMETOLOGY METHOD 05/02/2024 3:21 PM [facility] Monocytes Relative 7.1 % LAB HEMETOLOGY METHOD 05/02/2024 3:21 PM [facility] Eosinophils Relative 4.3 % LAB HEMETOLOGY METHOD 05/02/2024 3:21 PM [facility] Basophils Relative 0.3 % LAB HEMETOLOGY METHOD 05/02/2024 3:21 PM [facility] Immature Granulocytes Relative 0.4 % LAB HEMETOLOGY METHOD 05/02/2024 3:21 PM [facility] Neutrophils Absolute 8.16(H) 1.50 - 7.00 K/mcL LAB HEMETOLOGY METHOD 05/02/2024 3:21 PM [facility] Lymphocytes Absolute 2.76 1.00 - 5.00 K/mcL LAB HEMETOLOGY METHOD 05/02/2024 3:21 PM [facility] Monocytes Absolute 0.88 0.20 - 1.00 K/mcL LAB HEMETOLOGY METHOD 05/02/2024 3:21 PM EDT [facility] Eosinophils Absolute 0.53(H) 0.00 - 0.50 K/mcL LAB HEMETOLOGY METHOD 05/02/2024 3:21 PM EDT [facility] Basophils Absolute 0.04 0.00 - 0.20 K/mcL LAB HEMETOLOGY METHOD 05/02/2024 3:21 PM EDT [facility] Immature Granulocytes Absolute 0.05(H) 0.00 - 0.03 K/mcL LAB HEMETOLOGY METHOD 05/02/2024 3:21 PM EDT [facility] Blood Venous blood specimen / Unknown Venipuncture / Unknown 05/02/2024 2:43 PM EDT 05/02/2024 3:16 PM EDT Dariel Schmidt MD LAB BLOOD ORDERABLES Aisha l Result [facility] [address] [place] [address], [place] [phone] * Magnesium (05/02/2024 2:43 PM EDT) Only the most recent of2 resultswithin the time period is included. Magnesium 2.2 1.9 - 2.6 mg/dL LAB CHEMISTRY METHOD 05/02/2024 3:48 PM EDT [facility] Blood Venous blood specimen / Unknown Venipuncture / Unknown 05/02/2024 2:43 PM EDT 05/02/2024 3:16 PM EDT Dariel Schmidt MD LAB BLOOD ORDERABLES Aisha l Result [facility] [address] [place] [address], [place] [phone] * Lipase (05/02/2024 2:43 PM EDT) Only the most recent of3 resultswithin the time period is included. [facility] Lipase 33 13 - 75 unit/L LAB CHEMISTRY METHOD 05/02/2024 3:48 PM EDT [facility] Blood Venous blood specimen / Unknown Venipuncture / Unknown 05/02/2024 2:43 PM EDT 05/02/2024 3:16 PM EDT us Dariel Schmidt MD LAB BLOOD ORDERABLES Aisha l Result [facility] [address] [place] [address], [place] [phone] * (ABNORMAL) Comprehensive metabolic panel (05/02/2024 2:43 PM EDT) Only the most recent of3 resultswithin the time period is included. [facility] Sodium 137 133 - 145 mmol/L LAB CHEMISTRY METHOD 05/02/2024 3:49 PM [facility] Potassium 4.2 3.5 - 5.5 mmol/L LAB CHEMISTRY METHOD 05/02/2024 3:49 PM [facility] Chloride 104 96 - 110 mmol/L LAB CHEMISTRY METHOD 05/02/2024 3:49 PM T [facility] CO2 25 21 - 32 mmol/L LAB CHEMISTRY METHOD 05/02/2024 3:49 PM [facility] Anion Gap 8 3 - 11 LAB CHEMISTRY METHOD 05/02/2024 3:49 PM [facility] Glucose 148(H) 70 - 100 mg/dL LAB CHEMISTRY METHOD 05/02/2024 3:49 PM [facility] BUN 11 5 - 25 mg/dL LAB CHEMISTRY METHOD 05/02/2024 3:49 PM [facility] Creatinine 0.92 0.70 - 1.30 mg/dL LAB CHEMISTRY METHOD 05/02/2024 3:49 PM T [facility] eGFR 110 >=60 mL/min/1. 73m2 LAB CHEMISTRY METHOD 05/02/2024 3:49 PM T [facility] Comment:Calculation based on the??Chronic Kidney Disease Epidemiology Collaboration (CKD-EPI) equation refit??without adjustment for race. BUN/Creatinine Ratio 12.0 LAB CHEMISTRY METHOD 05/02/2024 3:49 PM T [facility] Calcium 9.6 8.5 - 10.5 mg/dL LAB CHEMISTRY METHOD 05/02/2024 3:49 PM [facility] AST (SGOT) 15 10 - 42 unit/L LAB CHEMISTRY METHOD 05/02/2024 3:49 PM [facility] ALT (SGPT) 21 10 - 60 unit/L LAB CHEMISTRY METHOD 05/02/2024 3:49 PM [facility] Alkaline Phosphatase 98 42 - 121 unit/L LAB CHEMISTRY METHOD 05/02/2024 3:49 PM [facility] Total Protein 8.5(H) 6.0 - 8.0 g/dL LAB CHEMISTRY METHOD 05/02/2024 3:49 PM [facility] Albumin 4.4 3.2 - 5.0 g/dL LAB CHEMISTRY METHOD 05/02/2024 3:49 PM T [facility] Total Bilirubin 0.8 0.0 - 1.4 mg/dL LAB CHEMISTRY METHOD 05/02/2024 3:49 PM [facility] Blood Venous blood specimen / Unknown Venipuncture / Unknown 05/02/2024 2:43 PM EDT 05/02/2024 3:16 PM EDT us Dariel Schmidt MD LAB BLOOD ORDERABLES Aisha banda Result [facility] [address] [place] [address], * Respiratory virus panel molecular study (03/16/2024 2:28 PM EST) Only the most recent of2 resultswithin the time period is included. Adenovirus Detection by PCR Not Detected Not Detected LAB MICROBIOLOGY METHOD 03/16/2024 3:55 PM EST [facility] Influenza A PCR Not Detected Not Detected LAB MICROBIOLOGY METHOD 03/16/2024 3:55 PM EST [facility] Influenza B PCR Not Detected Not Detected LAB MICROBIOLOGY METHOD 03/16/2024 3:55 PM EST [facility] Coronavirus 229E Not Detected Not Detected LAB MICROBIOLOGY METHOD 03/16/2024 3:55 PM EST [facility] Coronavirus HKU1 Not Detected Not Detected LAB MICROBIOLOGY METHOD 03/16/2024 3:55 PM EST [facility] Coronavirus OC43 Not Detected Not Detected LAB MICROBIOLOGY METHOD 03/16/2024 3:55 PM EST [facility] Coronavirus NL63 Not Detected Not Detected LAB MICROBIOLOGY METHOD 03/16/2024 3:55 PM EST [facility] Parainfluenza Virus 1 Not Detected Not Detected LAB MICROBIOLOGY METHOD 03/16/2024 3:55 PM EST [facility] Parainfluenza Virus 2 Not Detected Not Detected LAB MICROBIOLOGY METHOD 03/16/2024 3:55 PM EST [facility] Parainfluenza Virus 3 Not Detected Not Detected LAB MICROBIOLOGY METHOD 03/16/2024 3:55 PM EST [facility] Parainfluenza Virus 4 Not Detected Not Detected LAB MICROBIOLOGY METHOD 03/16/2024 3:55 PM EST [facility] RSV PCR Not Detected Not Detected LAB MICROBIOLOGY METHOD 03/16/2024 3:55 PM EST [facility] Human Metapneumovirus A and B Not Detected Not Detected LAB MICROBIOLOGY METHOD 03/16/2024 3:55 PM EST [facility] Rhinovirus/Entero virus Not Detected Not Detected LAB MICROBIOLOGY METHOD 03/16/2024 3:55 PM EST [facility] Bordetella pertussis Not Detected Not Detected LAB MICROBIOLOGY METHOD 03/16/2024 3:55 PM EST [facility] Bordetella parapertussis Not Detected Not Detected LAB MICROBIOLOGY METHOD 03/16/2024 3:55 PM EST [facility] Mycoplasma pneumo by PCR Not Detected Not Detected LAB MICROBIOLOGY METHOD 03/16/2024 3:55 PM EST [facility] Chlamydia pneumoniae Not Detected Not Detected LAB MICROBIOLOGY METHOD 03/16/2024 3:55 PM EST [facility] SARS COV-2 Not Detected Not Detected LAB MICROBIOLOGY METHOD 03/16/2024 3:55 PM EST [facility] Swab Both anterior nares / Unknown Non-blood Collection / Unknown 03/16/2024 2:28 PM EST 03/16/2024 2:51 PM EST Narrative [facility] - 03/16/2024 3:55 PM EST Testing was performed using the [employer] Respiratory Pathogen PCR Assay. All results must [...] that are below the limit of detection. us Rosa WADE LAB MICROBIOLOGY - GEN ERAL ORDERABLES Final Result [facility] [address] [place] [address], * CT Head wo Contrast (03/16/2024 2:11 PM EST) Anatomical Region Laterality Modality Head and Neck Computed Tomogra phy 03/16/2024 2:30 PM EST Impressions 03/16/2024 2:32 PM EST Impression: 1. No significant intracranial abnormality identified. 2. Partial opacification of the mastoid air cells, likely infectious/inflammatory. Telerad SHERI ([id number]) -------- FINAL REPORT -------- Dictated By: Edilma Camara Dictated Date: 03/16/2024 14:30 ET Assigned Physician: Edilma Camara Reviewed and Electronically Signed By: Edilma Camara Signed Date: 03/16/2024 14:32 ET Workstation ID: [id number] Transcribed By: Self Edit Transcribed Date: 03/16/2024 14:30 ET Narrative 03/16/2024 2:32 PM EST History: Headache. Classic migraine. Comparison: No comparison imaging at this institution. Technique: Contiguous axial images were obtained at 2.5 mm intervals through the posterior fossa and at 5 mm intervals through the remainder of the head without intravenous contrast. DLP: 900.99 mGy/cm GE [employer] VCT Iterative reconstruction technique Findings: The ventricular [...] without intravenous contrast. DLP: 900.99 mGy/cm GE [employer] VCT Iterative reconstruction technique Findings: The ventricular [...] of the mastoid air cells, likelyinfectious/inflammatory. Telerad SHERI ([id number]) -------- FINAL REPORT -------- Dictated By: Edilma Camara Dictated Date: 03/16/2024 14:30 ET Assigned Physician: Edilma Camara Reviewed and Electronically Signed By: Edilma Camara Signed Date: 03/16/2024 14:32 ET Workstation ID: [id number] Transcribed By: Self Edit Transcribed Date: 03/16/2024 14:30 ET [address] WADE IMG CT PROCEDURES Aisha l Result * Lactate, with reflex (03/16/2024 10:42 AM EST) LACTIC ACID 1.1 0.4 - 2.0 mmol/L LAB CHEMISTRY METHOD 03/16/2024 11:42 AM EST [facility] Blood Venous blood specimen / Unknown Venipuncture / Unknown 03/16/2024 10:42 AM EST 03/16/2024 11:06 AM EST Eloise Garber DO LAB BLOOD ORDERABLES Aisha l Result [facility] [address] [place] [address], [place] [phone] * (ABNORMAL) Thyroid stimulating hormone with reflex to free t4 and free t3 (TSH Reflex) (03/16/2024 10:42 AM EST) TSH 4.77(H) 0.40 - 4.00 mcIU/mL LAB CHEMISTRY METHOD 03/16/2024 2:53 PM EST [facility] Blood Venous blood specimen / Unknown Venipuncture / Unknown 03/16/2024 10:42 AM EST 03/16/2024 10:52 AM EST Rosa WADE LAB BLOOD ORDERABLES F inal Result Performing Organization Address [facility]/ZIP Co de Phone Number [facility] [address] [place] [address], [place] [phone] * Free thyroxine with reflex to free triiodothyronine (03/16/2024 10:42 AM EST) Free T4 1.29 0.70 - 1.80 ng/dL LAB CHEMISTRY METHOD 03/16/2024 3:21 PM EST [facility] Blood Venous blood specimen / Unknown Venipuncture / Unknown 03/16/2024 10:42 AM EST 03/16/2024 10:52 AM EST Rosa WADE LAB BLOOD ORDERABLES F inal Result Performing Organization Address [facility] de Phone Number [facility] [address] [place] [address], [place] [phone] * Triiodothyronine free (03/16/2024 10:42 AM EST) T3, Free 328 230 - 420 pcg/dL LAB CHEMISTRY METHOD 03/16/2024 3:49 PM EST [facility] Blood Venous blood specimen / Unknown Venipuncture / Unknown 03/16/2024 10:42 AM EST 03/16/2024 10:52 AM EST Rosa WADE LAB BLOOD ORDERABLES F inal Result Performing Organization Address [facility]/ZIP Co de Phone Number [facility] [address] [place] [address], [place] [phone] * SUTURE REMOVAL (03/07/2024 9:41 AM EST) Narrative Jeanette Lara MA - 03/07/2024 9:41 AM EST Jenaette Lara MA ? 03/07/2024 ??9:41 AM Suture Removal Date/Time: 03/07/2024 9:41 AM Performed by: Jeanette Lara MA Authorized by: Nic Nieto MD ?? Consent: ??Consent obtained: ??Verbal ??Consent given by: ??Patient ??Alternatives discussed: ??No treatment [place] protocol: ??Patient identity confirmed: ??Verbally with patient Location: ??Location: ??Head/neck ??Head/neck location: ??Neck Procedure details: ??Wound appearance: ??No signs of infection and good wound healing Post-procedure details: ??Post-removal: ??No dressing applied ??Procedure completion: ??Tolerated us Nic Nieto MD IN CLINIC/BEDSIDE ORDERABLES Fi nal Result * Tissue Exam (02/22/2024 10:50 AM EST) Final Diagnosis Skin, right neck-biopsy: -EPIDERMAL INCLUSION CYST, RUPTURED 02/26/2024 12:45 PM [facility] Clinical Information Epidermal inclusion cyst L72.0 02/26/2024 12:45 PM [facility] Gross Description A. Neck, right neck: Labeled neck . Received in formalin is a 1.4 x 0.3 cm rudd-brown skin ellipse excised with depth of 0.8 cm. The cut surfaces display a 0.3 cm possible cyst containing a rudd-yellow friable substance. Wax Specialist sections are submitted in one cassette, to include the entirety of the possible cyst, three pieces. MARELY 02/26/2024 12:45 PM [facility] Disclaimer Unless otherwise specified, all tissue is 10% NB formalin fixed and paraffin embedded. 02/26/2024 12:45 PM [facility] Tissue Neck structure / Unknown Non-blood Collection / Unknown 02/22/2024 10:50 AM EST 02/22/2024 11:21 AM EST us Nic Nieto MD LAB PATHOLOGY ORDERABLES Final Result Performing Organization Address [facility]/ZIP Co de Phone Number [facility] [address] [place] [address], [place] [phone] * (ABNORMAL) POCT Glucose, blood (02/06/2024 5:29 PM EST) Only the most recent of4 resultswithin the time period is included. Glucose POCT 277(H) 70 - 100 mg/dL 02/06/2024 5:30 PM EST [facility] Blood Capillary blood specimen / Unknown 02/06/2024 5:29 PM EST 02/06/2024 5:31 PM EST us Alonso Way MD LAB POINT OF CARE TE ST DOCKED DEVICE UNSOLICITED RESULTS Final Result Performing Organization Address [facility] Co de Phone Number [facility] [address] [place] [address], [place] [phone] * (ABNORMAL) Lactate (02/06/2024 4:23 PM EST) Lactate 3.0(H) 0.4 - 2.0 mmol/L LAB CHEMISTRY METHOD 02/06/2024 5:03 PM EST [facility] Blood Venous blood specimen / Unknown Venipuncture / Unknown 02/06/2024 4:23 PM EST 02/06/2024 4:32 PM EST us Alonso Way MD LAB BLOOD ORDERABLES Final Resu lt Performing Organization Address [facility]/ZIP Co de Phone Number [facility] [address] [place] [address], [place] [phone] * (ABNORMAL) Urinalysis with reflex microscopic (02/06/2024 7:28 AM EST) Specific [place] Urine 1.031(H) 1.003 - 1.030 LAB URINALYSIS - AUTOMATED METHOD 02/06/2024 7:59 AM [facility] pH, Urine 6.5 5.0 - 8.0 pH LAB URINALYSIS - AUTOMATED METHOD 02/06/2024 7:59 AM [facility] Leukocytes, Urine Negative Negative LAB URINALYSIS - AUTOMATED METHOD 02/06/2024 7:59 AM [facility] Nitrite, Urine Negative Negative LAB URINALYSIS - AUTOMATED METHOD 02/06/2024 7:59 AM [facility] Protein, Urine 30(A) <=Trace mg/dL LAB URINALYSIS - AUTOMATED METHOD 02/06/2024 7:59 AM [facility] Glucose, Urine >=1000(A) Negative mg/dL LAB URINALYSIS - AUTOMATED METHOD 02/06/2024 7:59 AM [facility] Ketones, Urine Trace(A) Negative mg/dL LAB URINALYSIS - AUTOMATED METHOD 02/06/2024 7:59 AM [facility] Urobilinogen , Urine 1.0 0.2 - 1.0 mg/dL LAB URINALYSIS - AUTOMATED METHOD 02/06/2024 7:59 AM [facility] Bilirubin, Urine Negative Negative LAB URINALYSIS - AUTOMATED METHOD 02/06/2024 7:59 AM [facility] Blood, Urine Negative Negative LAB URINALYSIS - AUTOMATED METHOD 02/06/2024 7:59 AM [facility] RBC, Urine 6.4(H) 0 - 4 /HPF LAB URINALYSIS - AUTOMATED METHOD 02/06/2024 7:59 AM [facility] WBC, Urine 1.6 0 - 4 /HPF LAB URINALYSIS - AUTOMATED METHOD 02/06/2024 7:59 AM [facility] Squamous Epithelial, Urine 33 0 - 60 /LPF LAB URINALYSIS - AUTOMATED METHOD 02/06/2024 7:59 AM [facility] Bacteria, Urine Negative Negative /HPF LAB URINALYSIS - AUTOMATED METHOD 02/06/2024 7:59 AM [facility] Hyaline Casts, Urine 0.4 0 - 3 /LPF LAB URINALYSIS - AUTOMATED METHOD 02/06/2024 7:59 AM [facility] Urine Urine specimen obtained by clean catch procedure / Unknown Non-blood Collection / Unknown 02/06/2024 7:28 AM EST 02/06/2024 7:46 AM EST us Lamonte Humphreys MD LAB URINE ORDERABLES Final Resu lt Performing Organization Address [facility] Co de Phone Number [facility] [address] [place] [address], [place] [phone] * Menard urine culture tube (02/06/2024 7:26 AM EST) Extra Tube Hold for add-ons. 02/06/2024 9:02 AM [facility] Comment:Auto resulted. Urine Urine specimen obtained by clean catch procedure / Unknown 02/06/2024 7:26 AM EST 02/06/2024 7:53 AM EST us Lamonte Humphreys MD LAB URINE ORDERABLES Final Resu lt Performing Organization Address [facility]/ZIP Co de Phone Number [facility] [address] [place] [address], [place] [phone] * Beta hydroxybutyrate (02/06/2024 7:25 AM EST) Beta-Hydroxybu tyrate 2.1 0.2 - 2.8 mg/dL LAB CHEMISTRY METHOD 02/06/2024 8:17 AM [facility] Blood Venous blood specimen / Unknown Venipuncture / Unknown 02/06/2024 7:25 AM EST 02/06/2024 7:47 AM EST us Lamonte Humphreys MD LAB BLOOD ORDERABLES Final Resu lt Performing Organization Address City/[facility]/ZIP Co de Phone Number [facility] [address] [place] [address], [place] [phone] * (ABNORMAL) Sedimentation rate, automated (02/06/2024 7:25 AM EST) Sed Rate 27(H) 0 - 15 mm/hr LAB HEMETOLOGY METHOD 02/06/2024 2:50 PM EST [facility] Blood Venous blood specimen / Unknown Venipuncture / Unknown 02/06/2024 7:25 AM EST 02/06/2024 7:47 AM EST us Alonso Way MD LAB BLOOD ORDERABLES Final Resu lt Performing Organization Address [facility]/ZIP Co de Phone Number [facility] [address] [place] [address], [place] [phone] * (ABNORMAL) C-reactive protein (02/06/2024 7:25 AM EST) C-Reactive Protein 0.80(H) <=0.50 mg/dL LAB CHEMISTRY METHOD 02/06/2024 3:27 PM EST [facility] Blood Venous blood specimen / Unknown Venipuncture / Unknown 02/06/2024 7:25 AM EST 02/06/2024 7:47 AM EST us [address]onso [address] MD LAB BLOOD ORDERABLES Final Resu lt Performing Organization Address City/[facility]/ZIP Co de Phone Number [facility] [address] [place] [address], [place] [phone] * (ABNORMAL) Osmolality (02/06/2024 7:25 AM EST) Osmolality Kristine 304(H) 280 - 300 mOsm/kg LAB CHEMISTRY METHOD 02/06/2024 8:55 AM EST [facility] Blood Venous blood specimen / Unknown Venipuncture / Unknown 02/06/2024 7:25 AM EST 02/06/2024 7:47 AM EST us Lamonte Humphreys MD LAB BLOOD ORDERABLES Final Resu lt [facility] [address] [place] [address], * (ABNORMAL) Venous blood gas (02/06/2024 7:25 AM EST) pH, Terence 7.47(H) 7.32 - 7.42 pH 02/06/2024 7:50 AM [facility] pCO2, Terence 36(L) 41 - 51 mmHg 02/06/2024 7:50 AM [facility] pO2, Terence 35 25 - 40 mmHg 02/06/2024 7:50 AM [facility] HCO3, Venous 26.2(H) 22.0 - 26.0 mmol/L 02/06/2024 7:50 AM [facility] O2 Sat, Terence 70.6 % 02/06/2024 7:50 AM [facility] Base Excess, Terence 2.7(H) -2.0 - 2.0 mmol/L 02/06/2024 7:50 AM [facility] Blood Venous blood specimen / Unknown Venipuncture / Unknown 02/06/2024 7:25 AM EST 02/06/2024 7:47 AM EST us Lamonte Humphreys MD LAB BLOOD ORDERABLES Final Resu lt [facility] [place] [facility] [address] [place] [address], from Last 3 Months Insurance MEDICAID - [place] Care Teams Clock Mechanic Relationship Specialty Start Date End Date Matilde Calabrese MD [address] [place] [phone] PCP - General 11/22/23
--- OUTSIDE RECORDS SUMMARY | 2024-05-06 09:05 | XMS_ITS | Encounter Summary ---
Author Organization [employer] Address [address] [facility] [address] [place] [address] Care Team Providers Care Fitter Up Name Role Phone Matilde Calabrese MD Primary Care Provide r Kourtney Su PharmD Unavailable Reason for Visit * Reason Onset Date Comments Care Management 04/16/2024 C3CM- f/u call Encounter Details Date Type Department Care Team ([facility] st Contact Info) Description 04/16/2024 Telephone [facility]IC[facility] [address] [place] [address] Matilde Calabrese MD [address] [place] [address] Care Management (C3CM- f/u call) Social History [...] the past 12 months, has t he [employer] gas, oil or water company threatened to [...] Telephone Encounter - Cecily Pinedo RN - 04/16/2024 9:12 AM EST KENDRA Pinedo RN, sent notification to PCP Dr. Youngblood to inform that patient has completed [id number] Complex Care program with goals partially/fully met at this time. * Telephone Encounter - Cecily Pinedo RN - 04/16/2024 9:11 AM EST Late entry: KENDRA Pinedo RN and CHW Yue Eubanks placed outbound call to patient. Patient's name, and address confirmed. Patient states is doing well with no recent illnesses or emergency room visits.Per patient, missed appt with ENT. He states he was experiencing leg/foot pain at the time and was not able to attend. CM will outreach office to reschedule. Per patient, visit with Kourtney went well. He states he was recently able to pickle solution maker all meds from his pharmacy including the Tresiba which hewas previously having difficulties with obtaining. Patient is requesting to connect to services.He states he has found himself becoming short tempered more frequently. He denies SI/HI. CM reminded patient to present to [facility] with his insurance card to request an intake. CM also contact ed and was advised that they will outreach patient either today or tomorrow for a consult. Patient verbalizes understanding and agrees. He also states he has other resources in the community and will present there as needed. CM informed patient of his EMG results which were reviewed by PCP. 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 CM advised patient a referral was placed to Ortho. Advised the referral is currently in process and he should be receiving a call with appt details once scheduled. He agrees. CM also informed patient that PCP agreed to prescribe the compression stockings. Advised this is also currently in process as of 04/14 and patient should reach out to Nasir within the next week to inquire on status. Advised to f/u with PCP office if does not hear back with a status. He agrees. Patient is aware of his scheduled CDTM visit on 04/23/24. He is also aware of visitwith PCP on 05/06/24. Patient denies any barriers to attending these visits. No further questions or concerns. CM reinforced direct contact information or CHW for any additional questions or concerns. Education provided on [facility] located in [facility]. Patient provided with after-hours line for [facility], , which offer night time triage service and option to transfer to microfabrication engineer manager provider if needed. CM discussed with the patient progress made towards established goals. Patient notified is being graduated from the Care Management Program. Patient was educated on how to receive care management services in the future. Patient agrees with the plan and will contact us if any future needs arise. CM called ENT. Patient r/s to 04/18/24 at 9:45am at [address] in [place], [place]. CM called patient. Left appt details as well as office contact information on v/m. Advised patient return call to if he has any questions or concerns. documented in this encounter Plan of Treatment Upcoming Encounters Date Type Department Care Team (Late st Contact Info) Description 05/07/2024 10:30 AM EDT Clinical Support [address] [address] 06/02/2024 10:30 AM EDT Medication Management [address] [address] Kourtney Su PharmD [address] [place] [phone] 06/03/2024 11:30 AM EDT Office Visit [facility] [address] [place] [address] Rodger Cole MD [address] [place] [address] 06/23/2024 11:30 AM EDT Office Visit [address] [address] Matilde Calabrese MD [address] [place] [phone] documented as of this encounter Visit Diagnoses Not on filedocumented in this encounter Additional Health Concerns Assessment Noted Time PHQ-9 Depression Total Score: 18 024 9:55 AM EST documented as of this encounter Care Teams Fitter Up Relationship Specialty Start Date End Date Matilde Calabrese MD [address] [place] [phone] PCP - General Internal Medicine 11/23/23 Kourtney Su PharmD [address] [place] [phone] Pharmacist Internal Medicine 12/05/23 [facility] 01/09/24 documented as of this encounter
--- OUTSIDE RECORDS SUMMARY | 2024-05-06 09:05 | XMS_ITS | Encounter Summary ---
Author Organization [employer] Address [address] [facility] 7[address] [place] [address] Care Team Providers Care Clinical Systems Analyst Name Role Phone Matilde Calabrese MD Primary Care Provide r Kourtney Su PharmD Unavailable [phone] Encounter Details Date Type Department Care Team (Latest Contact Info) Description 04/23/2024 Travel Social History Tobacco Use Types Packs/Day [...] Description 05/07/2024 10:30 AM EDT Clinical Support [address] [address] 06/02/2024 10:30 AM EDT Medication Management [address] [address] Kourtney Su, PharmD [address] [place] [phone] 06/03/2024 11:30 AM EDT Office Visit [facility] PEDS [address] [place] [address] Rodger Cole MD [address] [place] [address] 06/23/2024 11:30 AM EDT Office Visit [facility] MEDICINE [address] [place] [phone] Matilde Calabrese MD [address] [place] [phone] documented as of this encounter Visit Diagnoses Not on filedocumented in this encounter Additional Health Concerns Assessment Noted Time PHQ-9 Depression Total Score: 18 024 9:55 AM EST documented as of this encounter Care Teams Clinical Systems Analyst Relationship Specialty Start Date End Date Matilde Calabrese MD [address] [place] [address] PCP - General Internal Medicine 11/23/23 Kourtney Su, EmmaD [address] [place] [address] Pharmacist Internal Medicine 12/05/23 [facility] 01/09/24 documented as of this encounter
== END 2024-05-06 09:13 | disposition home or self-care (01) ==
LOC: HO.HVS 08:44
PROVIDERS: PCP Internal Medicine; Visit Provider Physician Assistant Surgical
DX: I83.11 Varicose veins of right lower extremity with inflammation (principal); I83.12 Varicose veins of left lower extremity with inflammation
CPT/HCPCS: 99204

== ENCOUNTER → 2024-05-06 08:43 | Outpatient (BNVA) | payer MEDICAID, SELFPAY | PROVIDERS: PCP Internal Medicine; Visit Provider Physician Assistant Surgical | DX: I83.11 Varicose veins of right lower extremity with inflammation (principal); I83.12 Varicose veins of left lower extremity with inflammation | CPT/HCPCS: 99212 ==

== ENCOUNTER 2024-05-20 10:14 | Outpatient (REF) | payer MEDICAID, SELFPAY ==
--- NOTE | ~2024-05-20 | XR_ITS ---
EXAMINATION: XR HIP 2 OR MORE VIEWS RIGHT, XR HIP 2 OR MORE VIEWS LEFT HISTORY: pain COMPARISON: There are no prior studies for comparison. FINDINGS: Two views of each hip are submitted. Osseous mineralization is normal. There is no fracture or dislocation. The joint spaces are maintained. The soft tissues are unremarkable. XR/XR hip RT min 2V IMPRESSION: Unremarkable examination of the bilateral hips. Electronically signed by: Mesfin Olivo MD 05/20/2024 11:03 AM EDT
--- NOTE | ~2024-05-20 | XR_ITS ---
EXAMINATION: XR HIP 2 OR MORE VIEWS RIGHT, XR HIP 2 OR MORE VIEWS LEFT HISTORY: pain COMPARISON: There are no prior studies for comparison. FINDINGS: Two views of each hip are submitted. Osseous mineralization is normal. There is no fracture or dislocation. The joint spaces are maintained. The soft tissues are unremarkable. XR/XR hip LT min 2V IMPRESSION: Unremarkable examination of the bilateral hips. Electronically signed by: Mesfin Olivo MD 05/20/2024 11:03 AM EDT
--- OUTSIDE RECORDS SUMMARY | 2024-05-20 11:59 | XMS_ITS | Clinical Summary ---
Author Organization [employer] Address [address] [place] [address] Care Team Providers Care Freelance Patternmaker Name Role Phone Matilde Calabrese MD Primary Care Provide r Kourtney Su PharmD Unavailable [phone] Cecily Pinedo RN Unavailable [phone] Allergies Active Allergy Reactions Criticality Noted [...] morning. 1 kit 023 Active Continuous Glucose Consulting Database Administrator (FreeStyle Cherelle 2 [place]) deviceIndication s:Type 2 diabetes mellitus with hyperglycemia, without long-term current use of insulin ([facility]) Scan sensor every 8 hours 1 each 024 Active glucose blood (FreeStyle Precision Jefry Test) test stripIndications :Type 2 diabetes mellitus with hyperglycemia, without long-term current use of insulin (CMS/[facility]) Use to test blood sugar 3 times daily 100 each 12 024 2024 Active FreeStyle lancetsIndicatio ns:Type 2 diabetes mellitus with hyperglycemia, with long-term current use of insulin (CMS/[facility]) 1 each by Other route 4 times daily. 100 each 11 01/06/ 024 Active pen needle 32G x 4 mm miscIndications: Type 2 diabetes mellitus with hyperglycemia, with long-term current use of insulin (CMS/[facility]) Use as instructed with insulin administration once daily 100 each 11/18/2 024 2024 Active UltiCare Alcohol Swabs 70 % padsIndications: Type 2 diabetes mellitus with hyperglycemia, with long-term current use of insulin ([facility]) Use as directed with insulin administration once daily 100 each 3 024 Active Blood Pressure Monitoring (Blood Pressure Cuff) miscIndications: Essential (primary) hypertension 1 each Once daily. 1 each 024 Active clindamycin (Clindagel) 1 % gelIndications:H idradenitis suppurativa Apply topically Once per day. Apply to affected areas for HS. 60 g 2 024 2024 Active benzoyl peroxide (Benzac AC) 10 % external washIndications: Hidradenitis suppurativa Use to wash affected areas nightly. Please be aware that may bleach towels/clothes. 142 g 2 024 Active insulin degludec (Tresiba FlexTouch) 100 UNIT/ML injectionIndicat ions:Type 2 diabetes mellitus with hyperglycemia, with long-term current use of insulin ([facility]) Inject subcutaneously 18 units once daily 15 mL 025 Active acetaminophen (Tylenol 8 Hour) 650 MG ER tablet Take 1 tablet (650 mg) by mouth every 8 (eight) hours if needed for mild pain. Do not crush, chew, or split. 50 tablet 1 025 2025 Active glucose 4 g chewable tabletIndication s:Type 2 diabetes mellitus with hyperglycemia, with long-term current use of insulin ([facility]) Use as directed for low blood sugar 50 tablet 11 025 Active fluticasone (Flonase) 50 MCG/ACT nasal sprayIndications :Right chronic serous otitis media Administer 1-2 sprays into each nostril Once per day. Shake gently. Before first use, prime pump. After use, clean tip and replace cap. 16 g 2 025 2025 Active Continuous Glucose Sensor (FreeStyle Cherelle 2 Sensor) miscIndications: Type 2 diabetes mellitus with hyperglycemia, with long-term current use of insulin ([facility]) Apply 1 sensor every 14 days 2 each 025 Active levothyroxine (Synthroid) 100 MCG tabletIndication s:Acquired hypothyroidism Take 1 tablet (100 mcg) by mouth before breakfast. 90 tablet 3 025 2025 Active lisinopril (Prinivil) 20 MG tabletIndication s:Hypertension, unspecified type Take 1 tablet (20 mg) by mouth Once per day. 90 tablet 3 025 2025 Active atorvastatin (Lipitor) 20 MG tabletIndication s:Type 2 diabetes mellitus with hyperglycemia, with long-term current use of insulin (CMS/HCC) Take 1 tablet by mouth once daily 90 tablet 3 025 Active amLODIPine (Norvasc) 10 MG tabletIndication s:Primary hypertension Take 1 tablet by mouth once daily 90 tablet 025 Active docusate sodium (Colace) 100 MG capsuleIndicatio ns:Constipation, unspecified constipation type TAKE 1 CAPSULE BY MOUTH TWICE DAILY 180 capsule 1 Active gabapentin (Neurontin) 600 MG tabletIndication s:Diabetic polyneuropathy associated with type 2 diabetes mellitus (CMS/HCC) Take 1 tablet (600 mg) by mouth 3 times daily. 90 tablet 025 2025 Active empagliflozin (Jardiance) 10 MGIndications:Di abetic polyneuropathy associated with type 2 diabetes mellitus (CMS/HCC) Take 1 tablet (10 mg) by mouth Once per day. 30 tablet 2025 Active carvedilol (Coreg) 12.5 MG tabletIndication s:Essential (primary) hypertension Take 1 tablet (12.5 mg) by mouth with breakfast and with evening meal. 60 tablet 025 2025 Active Dulaglutide (Trulicity) 3 MG/0.5ML solution auto-injectorInd ications:Type 2 diabetes mellitus with hyperglycemia, with long-term current use of insulin (CMS/HCC) Inject 3 mg under the skin 1 (one) time per week. 2 mL 025 Active esomeprazole (NexIUM) [address] capsuleIndicatio ns:Upper abdominal pain,Nausea and vomiting, unspecified vomiting type Take 1 capsule (40 mg) by mouth before breakfast. Do not open capsule. 30 capsule 025 2025 Active sucralfate (Carafate) 1 g tabletIndication s:Upper abdominal pain Take 1 tablet (1 g) by mouth before breakfast, before lunch, before evening meal, and at bedtime. 120 tablet 2 025 2025 Active carvedilol (Coreg) 6.25 MG tabletIndication s:Primary hypertension Take 1 tablet by mouth twice daily 180 tablet 024 2024 Discontinued omeprazole OTC (PriLOSEC OTC) 20 MG EC tablet Take 1 tablet (20 mg) by mouth before breakfast. Do not crush, chew, or split. 30 tablet 11 024 2024 Discontinued Dulaglutide (Trulicity) 3 MG/0.5ML solution auto-injectorInd ications:Type 2 diabetes mellitus with hyperglycemia, with long-term current use of insulin ([facility]) Inject 0.5 mL (3 mg) under [...] daily. 90 capsule 3 025 2024 Discontinued Active Problems Problem Noted Date Diagnosed Date Upper abdominal pain 05/19/2024 Assessment & Plan (05/19/2024 12:09 PM EDT): I advise patient to avoid NSAIDs, spicy and acid food, I advise to eat at the same time every day, I advise to elevate the head of the bed and take medications as prescribe Continue with his omeprazole 40 mg in the morning Continue with Zofran as needed I added today Carafate 1 g tablet with meals and at night Urgent referral to GI done today Nausea and vomiting 05/19/2024 Bilateral hip pain 05/19/2024 Assessment & Plan (05/19/2024 12:09 PM EDT): I will order x-rays of his hips patient will be contacted with results and plan Venous insufficiency 04/22/2024 Assessment & Plan (04/22/2024 1:32 PM EST): I will prescribe compression stockings 15-20mmhg #2 I will refer patient to vascular Ocular pain, right eye 03/11/2024 Assessment & Plan (03/11/2024 4:17 PM EST): Pt with c/o persistent right ocular pain x 5 days in the absence of any injury. No fever. He does c/o right sided headache as well. Seen at [facility], intraocular pressure per ER report on right eye was normal. On today's exam pt has photophobia and painful extraocular movements on the right. No redness, mild tenderness to palpation right eye. Etiology ? Ocular migraine vs other etiologies Plan: Stat Orbital and head CT. CBC, ESR. Pt to be seen by our [facility] Dr. Gresham tomorrow at 3:45 PM Follow [...] Essential (primary) hypertension 07/18/2022 Assessment & Plan (05/19/2024 12:09 PM EDT): Blood pressure is at goal today I advised to continue with low-sodium diet and same medication regimen Assessment & Plan (04/22/2024 3:08 PM EST): [...] (02/17/2024 5:00 PM EST): - Referral to [facility] Derm team placed 02/17/24 - Start topical [...] bed time lispro sliding scale, CDTM referral dotravon today - Diabetic eye exam:pending - Diabetic [...] organization. Date Type Department Care Team Description 05/19/2024 10:45 AM EDT Office Visit [facility] [place] [place] [address] Matilde Calabrese MD Essential (primary) hypertension (Primary Dx); Upper abdominal pain; Nausea and vomiting, unspecified vomiting type; Bilateral hip pain 05/19/2024 Telephone [facility] [address] [place] [phone] Matilde Calabrese MD Care Management (C3CM- f/u call) 05/19/2024 Travel 05/13/2024 Telephone [facility] [address] [place] [phone] Matilde Calabrese MD Care Management (C3CM- f/u call) 05/12/2024 Telephone [facility] [address] [place] [address] Matilde Calabrese MD NTTS F/U 05/05/2024 Patient Outreach [facility] [address] [place] [phone] Matilde Calabrese MD Care Coordination (Appt reminder ) 05/02/2024 Telephone [facility] [address] [place] [phone] Matilde Calabrese MD 05/02/2024 Population Health Risk Score [facility] [address] [place] [address] [phone] Provider, Population Health Generic 05/01/2024 Refill [facility] [place] [address] Matilde Calabrese MD 04/30/2024 Telephone [facility] [address] [place] [address] Matilde Calabrese MD Care Management (C3- f/u call) 04/25/2024 Telephone [facility] [address] [place] [address] Matilde Calabrese MD Durable Medical Equipment 04/24/2024 Telephone [facility] [address] [place] [phone] Matilde Calabrese MD Medication list 04/23/[address] [address] Matilde Calabrese MD 04/23/2024 Travel 04/23/[address] [address] Matilde Calabrese MD VNA orders 04/22/2024 1:00 PM EST Office Visit [facility] [address] [place] [address] Matilde Calabrese MD Essential (primary) hypertension (Primary Dx); Diabetic polyneuropathy associated with type 2 diabetes mellitus ([facility]); Venous insufficiency 04/22/2024 Travel 04/19/[address] [address] Matilde Calabrese MD Constipation, unspecified constipation type 04/17/2024 Telephone [facility] [address] [place] [address] Matilde Calabrese MD 04/16/2024 Telephone [facility] [address] [place] [phone] Matilde Calabrese MD Care Management ([facility]- f/u call) 04/15/2024 Patient Outreach [address] [address] Matilde Calabrese MD Care Coordination (Follow up) 04/15/[address] [address] Matilde Calabrese MD 04/10/2024 Patient Outreach [address] [address] Matilde Calabrese MD Care Coordination (Appt reminder) 04/09/[address] [address] Kourtney Su PharmD Durable Medical Equipment (DME: Compression Stockings) 04/09/2024 Orders Only [address] [address] Matilde Calabrese MD Bilateral carpal tunnel syndrome (Primary Dx) 04/09/2024 Travel 04/08/[address] [address] Matilde Calabrese MD Care Management (C3CM- f/u call) 04/08/[address] [address] Matilde Calabrese MD Error (VOID this visit) 04/01/[address] [address] Cecily Pinedo RN Care Management (C3CM- f/u call) 03/26/[address] [address] Cecily Pinedo RN 03/21/2024 12:30 PM EST Office Visit [address] [address] Randi Jiménez MD Ocular pain, right eye (Primary Dx); Type 2 diabetes mellitus with hyperglycemia, with long-term current use of insulin ([facility]); Dietary counseling; Exercise counseling; Class 3 severe obesity with serious comorbidity and body mass index (BMI) of 45.0 to 49.9 in adult, unspecified obesity type (CMS/HCC); Primary hypertension; Type 2 diabetes mellitus with hyperglycemia, without long-term current use of insulin ([facility]); Acquired hypothyroidism; Hypertension, unspecified type; Right chronic serous otitis media 03/21/2024 Travel 03/21/2024 Telephone [facility] [address] [place] [address], [place] [address] Ileana Jones, RN Results 03/19/2024 Telephone [facility] [address] [place] [address], [place] [address] Cecily Pinedo RN 03/19/2024 Patient Outreach [address] [address] Matilde Calabrese MD Care Coordination (SDOH) 03/19/[address] [address] Cecily Pinedo, ROSA Care Management (C3CM- f/u call) 03/17/2024 Patient Outreach [address] [address] Matilde Calabrese MD Transition Of Care (Tcm) 03/14/2024 Orders Only [address] [address] Christian Muñoz MD 03/12/2024 3:45 PM EST Office Visit [facility] [address] [place] [phone] Anisha Gresham, OD Ocular pain, right eye (Primary Dx); 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 ([facility]/HCC); Intermittent exotropia, alternating 03/12/2024 Travel 03/12/2024 Telephone [facility] [address] [place] [phone] Cecily Pinedo RN 03/11/2024 3:00 PM EST Office Visit [facility] [address] [place] [phone] Christian Muñoz MD Ocular pain, right eye; Acute intractable headache, unspecified headache type 03/11/2024 Telephone [facility] [address] [place] [address] Kourtney Su, Samara 03/11/2024 Travel 03/11/2024 Patient Outreach [facility] [address] [place] [phone] Matilde Calabrese MD Transition Of Care (Tcm) 03/07/[address] [address] Cecily Pinedo, ROSA Care Coordination 03/07/[address] [address] Cecily Pinedo, ROSA Care Management (C3CM- f/u call) 03/06/2024 Patient Outreach [address] [address] Matilde Calabrese MD Care Coordination (SDOH/appt reminders) 03/03/2024 10:00 AM EST Office Visit [facility] [address] [place] [address] Charity Luna DO Right foot pain (Primary Dx) 02/29/[address] [address] Matilde Calabrese MD Call Back Request 02/28/[address] [address] Matilde Calabrese MD 02/27/2024 Travel 02/26/2024 10:30 AM EST Telemedicine [address] [address] Kourtney Su, Samara Type 2 diabetes mellitus with hyperglycemia, with long-term current use of insulin ([facility]) (Primary Dx) 02/26/2024 Orders Only [address] [address] Matilde Calabrese MD Constipation, unspecified constipation type (Primary Dx) 02/26/[address] [address] Chante Davis, ROSA 02/25/[address] [phone] Cecily Pinedo, ROSA 02/25/[address] [address] Cecily Pinedo, RN Care Management (C3CM- f/u call) 02/22/2024 Telephone [facility] [address] [place] [address] Kourtney Su, EmmaD from Last 3 Months Immunizations Name Administration [...] Sign Reading Time Taken Comments Blood Pressure 127/87 05/19/2024 10:29 AM EDT Pulse 85 05/19/2024 10:29 AM EDT Temperature 36.2 ??C (97.2 ??F) 05/19/2024 10:29 AM E DT Respiratory Rate 16 05/19/2024 10:29 AM EDT Oxygen Saturation 99% 05/19/2024 10:29 AM EDT Inhaled Oxygen Concentration - - Weight 127 kg (279 lb) 05/19/2024 10:29 AM EDT Height 162.6 cm (5' 4 ) 05/19/2024 10:29 AM EDT Body Mass Index 47.89 05/19/2024 10:29 AM EDT Plan of Treatment Upcoming Encounters Date Type Department Care Team (Late st Contact Info) Description 06/02/2024 10:30 AM EDT Medication Management [facility] [address] [place] [address] Kourtney Su, PharmD [address] [place] [address] 06/03/2024 11:30 AM EDT Office Visit [facility] [address] [place] [address] Rodger Cole MD [address] [place] [address] 06/23/2024 11:30 AM EDT Office Visit [facility] [address] [facility] [place] [address] Matilde Calabrese MD [address] [place] [address] Health Maintenance Due Date Last Done Comments HIV Screening 1985 Family Planning (PISQ) 2001 COVID-19 Vaccine ( - 2023- season) 2023 04/09/2020, 03/12/2020 Hepatitis B Vaccines [...] 02/20, 03/12/2024, Additional history exists Tobacco Screening 05/19/2025 05/19/2024 DTaP/Tdap/Td Vaccines (3 - Td or Tdap) [...] Name Priority Date/Time Associated Diagnosis Comments XR HIP 2 OR 3 VIEWS RIGHT Routine 05/20/2024 10:14 AM EDT Bilateral hip pain XR HIP 2 OR 3 VIEWS LEFT Routine 05/20/2024 10:14 AM EDT Bilateral hip pain POCT GLYCATED HEMOGLOBIN, TOTAL Routine 03/21/2024 12:35 PM EST Type 2 diabetes mellitus with hyperglycemia, with long-term current use of insulin ([facility]) POCT GLUCOSE Routine 03/21/2024 12:35 PM EST Type 2 diabetes mellitus with hyperglycemia, with long-term current use of insulin ([facility]) CT ORBIT BI WO CONTRAST Routine [...] eye XR FOOT 3+ VIEWS RIGHT STAT 03/03/2024 10:49 AM EST Right foot pain ALBUMIN, RANDOM URINE W/CREATININE Routine 02/18/2024 11:22 AM EST HEPATITIS C AB W/REFL TO HCV RNA, QN, PCR Routine 02/18/2024 9:45 AM EST LIPID PANEL, STANDARD Routine 02/18/2024 9:45 AM EST from Last 3 Months or Most Recently Relevant to Health Maintenance Results * XR Hip 2 or 3 Views Right (05/20/2024 10:14 AM EDT) Anatomical Region Laterality Modality Lower Extremities, Hip Right Radiograp hic Imaging 05/20/2024 10:1 4 AM EDT Narrative 05/20/2024 11:06 AM EDT ?[facility] ?[address] ?[place] [address] ?XRay Report ? Signed ? Patient: Anderson,Raji ?MR#: [id number] ? : 1985 ?Acct:[id number] ? Age/Sex: 38 / M ?ADM Date: 04/01/25 ? Loc: HO.HHCX ? Attending Dr: Matilde Hudson MD ? Ordering Physician: Matilde Calabrese MD ?? Date of Service: 05/20/24 ?? Procedure(s): XR hip RT min 2V ?? Accession Number(s): [id number] ? cc: Matilde Calabrese MD ? EXAMINATION: ??XR HIP 2 OR MORE VIEWS RIGHT, XR HIP 2 OR MORE VIEWS LEFT ? HISTORY: pain ? COMPARISON: There are no prior studies for comparison. ? FINDINGS: ?? Two views of each hip are submitted. ??Osseous ?? mineralization is normal. ??There is no fracture or dislocation. ??The ?? joint spaces are maintained. ??The soft tissues are unremarkable. ? XR/XR hip RT min 2V ?? IMPRESSION: ?? Unremarkable examination of the bilateral hips. ? Electronically signed by: ??Mesfin Olivo MD ??05/20/2024 11:03 AM EDT ? Dictated By: ?Mesfin Olivo MD ? Signed By: ?<Electronically signed by Mesfin Olivo MD in OV> ?05/20/241102 ? DD/ 1014 ? TD/TT: 05/20/24 1020 ? Manager Custom: ? Procedure Note Olegariobrien, Image - 05/20/[address] [address] XRay Report Signed Patient: Cedrick Anderson#: [id number] : 1985Acct:[id number] Age/Sex: 38 / MADM Date: 05/20/24 Loc: HO.HHCX Attending Dr: Matilde Hudson MD Ordering Physician: Matilde Calabrese MD Date of Service: 05/20/24 Procedure(s): XR hip RT min 2V Accession Number(s): [id number] cc: Matilde Calabrese MD EXAMINATION: XR HIP 2 OR MORE VIEWS RIGHT, XR HIP 2 OR MORE VIEWS LEFT HISTORY: pain COMPARISON: There are no prior studies for comparison. FINDINGS: Two views of each hip are submitted. Osseous mineralization is normal. There is no fracture or dislocation. The joint spaces are maintained. The soft tissues are unremarkable. XR/XR hip RT min 2V IMPRESSION: Unremarkable examination of the bilateral hips. Electronically signed by: Mesfin Olivo MD 05/20/2024 11:03 AM EDT Dictated By: Mesfin Olivo MD Signed By: <Electronically signed by Mesfin Olivo MD in OV> 05/20/24 1103 DD/ 1014 TD/TT: 05/20/24 1020 Manager Custom: us Matilde Garcia Cristianetoño Tristan VELEZ IMG XR PROCEDURES Fin al Result * XR Hip 2 or 3 Views Left (05/20/2024 10:14 AM EDT) Anatomical Region Laterality Modality Lower Extremities, Hip Left Radiograp hic Imaging 05/20/2024 10:1 4 AM EDT Narrative 05/20/2024 11:06 AM EDT ?[facility] ?[address] ?[place] [address] ?XRay Report ? Signed ? Patient: Anderson,Raji ?MR#: [id number] ? : 1985 ?Acct:[id number] ? Age/Sex: 38 / M ?ADM Date: 05/20/24 ? Loc: HO.HHCX ? Attending Dr: Matilde Hudson MD ? Ordering Physician: Matilde Calabrese MD ?? Date of Service: 05/20/24 ?? Procedure(s): XR hip LT min 2V ?? Accession Number(s): [id number] ? cc: Matilde Calabrese MD ? EXAMINATION: ??XR HIP 2 OR MORE VIEWS RIGHT, XR HIP 2 OR MORE VIEWS LEFT ? HISTORY: pain ? COMPARISON: There are no prior studies for comparison. ? FINDINGS: ?? Two views of each hip are submitted. ??Osseous ?? mineralization is normal. ??There is no fracture or dislocation. ??The ?? joint spaces are maintained. ??The soft tissues are unremarkable. ? XR/XR hip LT min 2V ?? IMPRESSION: ?? Unremarkable examination of the bilateral hips. ? Electronically signed by: ??Mesfin Olivo MD ??05/20/2024 11:03 AM EDT ?? RP ? Dictated By: ?Mesfin Olivo MD ? Signed By: ?<Electronically signed by Mesfin Olivo MD in OV> ?05/20/24 1103 ? DD/ 1014 ? TD/TT: 05/20/24 1020 ? Manager Custom: ? Procedure Note Salima Villanueva - 05/20/2024 [facility] [address] [place] [address] XRay Report Signed Patient: Cedrick Anderson#: [id number] : 1985Acct:[id number] Age/Sex: 38 / MADM Date: 05/20/24 Loc: HO.HHCX Attending Dr: Matilde Hudson MD Ordering Physician: Matilde Calabrese MD Date of Service: 05/20/24 Procedure(s): XR hip LT min 2V Accession Number(s): [id number] cc: Matilde Calabrese MD EXAMINATION: XR HIP 2 OR MORE VIEWS RIGHT, XR HIP 2 OR MORE VIEWS LEFT HISTORY: pain COMPARISON: There are no prior studies for comparison. FINDINGS: Two views of each hip are submitted. Osseous mineralization is normal. There is no fracture or dislocation. The joint spaces are maintained. The soft tissues are unremarkable. XR/XR hip LT min 2V IMPRESSION: Unremarkable examination of the bilateral hips. Electronically signed by: Mesfin Olivo MD 05/20/2024 11:03 AM EDT Dictated By: Mesfin Olivo MD Signed By: <Electronically signed by Mesfin Olivo MD in OV> 05/20/24 1103 DD/ 1014 TD/TT: 05/20/24 1020 Manager Custom: Matilde Hudson MD IMG XR PROCEDURES Fin al Result * (ABNORMAL) POCT HGB A1C (03/21/2024 12:35 [...] Media Lot # [id number] Lot# Expiration Date 172,025 Blood Capillary blood specimen / Unknown 03/21/2024 12:35 PM EST us Randi Jiménez MD POINT OF CARE TEST ENTER/EDIT ORDERABLES Final Result * CT ORBIT BI WO CONTRAST (03/14/2024 10:05 AM EST) Anatomical Region Laterality Modality Head, Neck Computed Tomogra phy 03/14/2024 10:0 5 AM EST Narrative 03/14/2024 10:07 AM EST ? [facility] ?[address] ?[place] [address] ? [address] Scan Report ? Signed ? Patient: Anderson,Raji ?MR#: [id number] ? : 1985 ?Acct:[id number] ? Age/Sex: 38 / M ?ADM Date: 03/14/24 ? Loc: HO.CT ? Attending Dr: Christian Shelton MD ? Ordering Physician: Christian Shelton MD ?? Date of Service: 03/14/24 ?? Procedure(s): CT orbit BI wo IV con ?? Accession Number(s): [id number] ? cc: Matilde Calabrese MD; Christian Shelton MD ? Report Number: ?? [id number]: Total DLP = ??121.00 mGy-cm ? CLINICAL [...] MD in OV> ? 03/14/246 ? DD/ 1005 ? TD/TT: 03/14/24 1005 ? Manager Custom: ? Procedure Note Donotuseinterpreter, Image - 03/14/[address] [address] [address] Scan Report Signed Patient: Cedrick Anderson#: [id number] : 1985Acct:[id number] Age/Sex: 38 / MADM Date: 03/14/24 Loc: HO.CT Attending Dr: Christian Shelton MD Ordering Physician: Christian Shelton MD Date of Service: 03/14/24 Procedure(s): CT orbit BI wo IV con Accession Number(s): [id number] cc: Matilde Calabrese MD; Christian Shelton MD Report Number: [id number]: Total DLP = 121.00 mGy-cm CLINICAL HISTORY: [...] 03/14/24 1006 DD/ 1005 TD/TT: 03/14/24 1005 Manager Custom: Christian Fuchs MD IMG CT PROCEDURES Fin al Result * CT Head w/o Contrast (03/14/2024 10:02 AM EST) Anatomical Region Laterality Modality Head, Neck Computed Tomogra phy 03/14/2024 10:0 2 AM EST Narrative 03/14/2024 10:04 AM EST ? [facility] ?[address] ?[place] [address] ? CT Scan Report ? Signed ? Patient: Anderson,Raji ?MR#: [id number] ? : 1985 ?Acct:[id number] ? Age/Sex: 38 / M ?ADM Date: 03/14/24 ? Loc: HO.CT ? Attending Dr: Christian Shelton MD ? Ordering Physician: Christian Shelton MD ?? Date of Service: 03/14/24 ?? Procedure(s): CT head/brain wo IV con ?? Accession Number(s): [id number] ? cc: Matilde Calabrese MD; Christian Shelton MD ? Report Number: ?? [id number]: Total DLP = 1059.00 mGy-cm ? CLINICAL [...] DD/ 1002 ? TD/TT: 03/14/24 1002 ? Manager Custom: ? Procedure Note Rich, Image - 03/14/[address] [address] [address] Scan Report Signed Patient: Cedrick Anderson#: [id number] : 1985Acct:[id number] Age/Sex: 38 / MADM Date: 03/14/24 Loc: HO.CT Attending Dr: Christian Shelton MD Ordering Physician: Christian Shelton MD Date of Service: 03/14/24 Procedure(s): CT head/brain wo IV con Accession Number(s): [id number] cc: Matilde Calabrese MD; Christian Shelton MD Report Number: [id number]: Total DLP = 1059.00 mGy-cm CLINICAL HISTORY: [...] 03/14/24 1004 DD/ 1002 TD/TT: 03/14/24 1002 Manager Custom: us Christian Fuchs MD IMG CT PROCEDURES Fin al Result * Fundus Photos - OU - Both Eyes (03/12/2024 3:45 PM EST) Narrative Anisha Gresham, OD - 03/13/2024 12:30 PM EST FUNDUS [...] Blood Count 9.5 4.8 - 10.8 X10*3/uL [facility] Red Blood Count 4.66 4.60 - 5.80 X10*6/uL [facility] Hemoglobin 13.9(L) 14.0 - 18.0 g/dl [facility] Hematocrit 40.0(L) 42.0 - 52.0 % [facility] Mean Corpuscular Volume 85.8 80.0 - 98.0 fL [facility] Mean Corpuscular Hemoglobin 29.8 27.0 - 33.0 pg [facility] Mean Corpuscular HGB Conc 34.8 31.0 - 36.0 g/dl [facility] Red Cell Distribution Width 12.3 11.0 - 16.0 % [facility] Platelet Count 326 160 - 400 X10*3/uL [facility] Mean Platelet Volume 10.4 9.4 - 12.4 fL [facility] Neutrophils Percent Auto 58.0 45 - 73 % [facility] Imm Gran Pct Auto 0.3 0.0 - 0.4 % [facility] Lymphocytes Percent Auto 30.5 20 - 40 % [facility] Monocytes Percent Auto 6.6 2 - 11 % [facility] Eosinophils Percent Auto 3.4 0 - 4 % [facility] Basophils Percent Auto 1.2 0 - 2 % [facility] NRBC Pct Auto 0.0 0.0 - 0.2 /100WBC [facility] Neutrophils Absolute Auto 5.5 2.0 - 8.3 x10*3/uL [facility] Imm Gran Abs Auto 0.03 0.00 - 0.03 X10*3/uL [facility] Lymphocytes Absolute Auto 2.9 1.2 - 4.9 X10*3/uL [facility] Monocytes Absolute Auto 0.6 0.1 - 1.2 X10*3/uL [facility] Eosinophils Absolute Auto 0.3 0.0 - 0.4 X10*3/uL [facility] Basophils Absolute Auto 0.1 0.0 - 0.2 X10*3/uL [facility] NRBC Abs Auto 0.000 0.0 - 0.012 X10*3/uL [facility] Blood Venous blood specimen / Unknown 03/12/2024 2:58 PM EST 03/12/2024 4:20 PM EST Christian Fuchs MD LAB BLOOD ORDERABLES Final Result Performing Organization Address City/[facility]/ZIP Co de Phone Number [facility] [address] [place] [phone] * (ABNORMAL) Sed Rate by Modified Reganren (03/12/2024 2:58 PM EST) Erythrocyte Sedimentation Rate 34(H) 0 - 15 MM/HR [facility] Comment:Patients with polycy themia and many hemoglobin abnormalitiesmay have depressed sed rates whereas patients with anemiamay have elevated sed rates. Blood Venous blood specimen / Unknown 03/12/2024 2:58 PM EST 03/12/2024 4:20 PM EST Christian Fuchs MD LAB BLOOD ORDERABLES Final Result [facility] [address] [place] [phone] * (ABNORMAL) Basic Metabolic Panel (03/12/2024 2:58 PM EST) Sodium 135 135 - 145 mmol/L [facility] Potassium 4.3 3.3 - 5.1 mmol/L [facility] Chloride 105 96 - 108 mmol/L [facility] Carbon Dioxide 25 22 - 29 mmol/L [facility] Anion Gap 9(L) 12 - 20 [facility] Urea Nitrogen (BUN) 13 9 - 16 mg/dL [facility] Creatinine, Serum 0.93 0.5 - 1.4 mg/dL [facility] Estimated Glomerular Filt Rate >60 [facility] Comment:Chronic Kidney Disea se: Estimated GFR < 60 mL/min/1.41b7Devtol Kidney Disease: Estimated GFR < 15 mL/min/1.73m2 Glucose 227(H) 60 - 115 mg/dL [facility] Calcium 9.6 8.4 - 10.2 mg/dL [facility] Blood Venous blood specimen / Unknown 03/12/2024 2:58 PM EST 03/12/2024 4:20 PM EST us Christian Fuchs MD LAB BLOOD ORDERABLES Final Result Performing Organization Address City/State/[facility] Co de Phone Number [facility] [address] [place] [phone] * XR Foot 3+ Views Right (03/03/2024 10:49 AM EST) Anatomical Region Laterality Modality Lower Extremities, Foot Right Radiogra phic Imaging 03/03/2024 10:4 9 AM EST Narrative 03/03/2024 11:09 AM EST ?[facility] ?[address] ?[place] [address] ?XRay Report ? Signed ? Patient: Anderson,Raji ?MR#: [id number] ? : 1985 ?Acct:[id number] ? Age/Sex: 38 / M ?ADM Date: 01/13/25 ? Loc: HO.HHCX ? Attending Dr: Charity Luna DO ? Ordering Physician: Charity Luna DO ?? Date of Service: 03/03/24 ?? Procedure(s): XR foot RT min 3V ?? Accession Number(s): [id number] ? cc: Charity Luna DO ? EXAMINATION: [...] DD/ 1049 ? TD/TT: 03/03/24 1058 ? Manager Custom: ? Procedure Note Jessiegarrett, Image - 03/03/2024 [place] [address] XRay Report Signed Patient: Cedrick Anderson#: [id number] : 1985Acct:[id number] Age/Sex: 38 / MADM Date: 03/03/24 Loc: HO.HHCX Attending Dr: Charity Luna DO Ordering Physician: Charity Luna DO Date of Service: 03/03/24 Procedure(s): XR foot RT min 3V Accession Number(s): [id number] cc: Charity Luna DO EXAMINATION: XR FOOT [...] 03/03/24 1106 DD/ 1049 TD/TT: 03/03/24 1058 Manager Custom: us Charity Luna DO IMG XR PROCEDURES Edited Res ult - Final * Albumin, Random Urine W/Creatinine (02/18/2024 11:22 AM EST) Creatinine, Urine 209.68 mg/dL [facility] Microalbumin Urine 52.0 mg/L [facility] Microalbum Creatinine Ratio Ur 24.7 <30 ug/mg cr [facility] Comment:Albumin/Creatinine R atio Reference Ranges: Normal: < 30 ug/mg creatinine Microalbuminuria: 30 - 300 ug/mg creatinineClinical Albuminuria: > 300 ug/mg creatinine 02/18/2024 11:2 2 AM EST 02/18/2024 1:18 PM EST us Matilde Hudson MD LAB URINE ORDERABLES Final Result [facility] [address] [place] [phone] * Hepatitis C Antibody with Reflex to HCV, RNA, Quantitative, Real-Time PCR (02/18/2024 9:45 AM EST) Hepatitis C Antibody Nonreactive Nonreactive [facility] Comment:Antibodies to HCV no t detected; does not exclude early acuteHCV infection. 02/18/2024 9:45 AM EST 02/18/2024 11:12 AM EST us Generic External Data Provider LAB BLOOD ORDERAB LES Final Result Performing Organization Address [facility]/ZIP Co de Phone Number [facility] [address] [place] [phone] * (ABNORMAL) Lipid Panel, Standard (02/18/2024 9:45 AM EST) Triglycerides 319(H) <150 mg/dL [facility] Comment:Slight Lipemia.Aury able Triglyceride: less than 150 mg/dLBorderline High Triglyceride 150-199 mg/dLHigh Triglyceride: 200-499 mg/dLVery High Triglyceride: greater than or equal to 5OO mg/dL Cholesterol 176 <200 mg/dL [facility] Comment:Desirable Cholestero l: less than 200 mg/dLBorderline High Cholesterol: 200-239 mg/dLHigh Cholesterol: greater than 239 mg/dL LDL Cholesterol Calculated 75 <100 mg/dL [facility] Comment:Desirable LDL: less than 100 mg/dLNear Optimal/Above Optimal LDL: 110- 129 mg/dLBorderline High LDL: 130-159 mg/dLHigh LDL: 160-189 mg/dLVery High LDL: greater than or equal to 190 mg/dL HDL Cholesterol 38(L) >40 mg/dL [facility] Comment:Desirable HDL: great er than 40 mg/dL Note: This HDL assay may give artificially low results in patients with liver disease. 02/18/2024 9:45 AM EST 02/18/2024 11:12 AM EST us Matilde Hudson MD LAB BLOOD ORDERABLES Final Result Performing Organization Address City/[facility]/ZIP Co de Phone Number [facility] [address] [place] [phone] from Last 3 Months or Most Recently Relevant to Health Maintenance Insurance [place] C3 Care Teams Freelance Patternmaker Relationship Specialty Start Date End Date Matilde Calabrese MD [address] [place] [address] PCP - General Internal Medicine 11/23/23 Kourtney Su PharmD [address] [place] [address] Pharmacist Internal Medicine 12/05/23 Cecily Pinedo RN [address] [place] [phone] [employer] WorkerNaval Aircrewman 04/29/24 [facility] 01/09/24
--- OUTSIDE RECORDS SUMMARY | 2024-05-20 11:59 | XMS_ITS | Encounter Summary ---
Author Organization [employer] Address [address] [facility] [address] [place] [address] Care Team Providers Care Cnc Machine Operator Name Role Phone Matilde Calabrese MD Primary Care Provide r Kourtney Su PharmD Unavailable [phone] Cecily Pinedo RN Unavailable [phone] Reason for Referral * Consultation (Urgent) - Authorized Specialty Diagnoses / Procedures Referred By Contac t Referred To Contact Gastroenterology Diagnoses Upper abdominal pain Nausea and vomiting, unspecified vomiting type Matilde Calabrese MD [address] [place] [phone] Phone: tel: fax: [facility] [address] [place] [address] [address] Floor [place], [place] Phone: tel: fax: Referral ID Status Reason Start Date Expiration Date Visits Requested Visits Authorized [id number] Authorized Specialty Services Required 05/19/2024 05/19/2025 6 6 Reason for Visit * Reason Comments sick on site Encounter Details Date Type Department Care Team (Late st Contact Info) Description 05/19/2024 10:45 AM EDT Office Visit [facility] [address] [place] [address] [phone] Matilde Calabrese MD [address] [place] [address] [phone] Essential (primary) hypertension (Primary Dx); Upper abdominal pain; Nausea and vomiting, unspecified vomiting type; Bilateral hip pain Social History Tobacco Use Types Packs/Day Years [...] Mass Index 47.89 05/19/2024 10:29 AM EDT documented in this encounter Progress Notes * Matilde Hudson MD - 05/19/2024 10:45 AM EDT SUBJECTIVE: Raji Anderson is a 38 y.o. year old male who presents for sick visit . Acute Concerns: Patient was recently seen in the emergency room for upper abdominal pain, GERD, nausea and vomitingextensive workup was done CT of his abdomen did not show any acute findings, lipase was negative and patient was discharged with his omeprazole 40 mg and Zofran as needed, today he reports he still has some discomfort but is better he is currently taking his omeprazole 40 mg and Zofran as needed hewas told he may has some ulcers in his stomach and he is concerned about this Patient today also reports bilateral hip pain and sensation of dislocation of his hips sometimes with when he does certain movements Patient Active Problem List Diagnosis Type 2 diabetes mellitus with hyperglycemia, with long-term current use of insulin ([facility]) Obstructive sleep apnea syndrome Morbid obesity ([facility]/HCC) Mood disorder ([facility]/HCC) Gout Flat foot Essential (primary) hypertension Hidradenitis suppurativa of multiple sites Acute ankle pain Paraspinal muscle spasm JASBIR (acute kidney injury) ([facility]/HCC) Acquired hypothyroidism Hospital discharge follow-up Cellulitis Chronic right shoulder pain Mixed anxiety and depressive disorder Nail disease Diabetic polyneuropathy associated with type 2 diabetes mellitus (CMS/HCC) Bilateral wrist pain LLQ abdominal pain Abscess Hypertension Kidney disease Ocular pain, right eye Acute intractable headache Venous insufficiency Upper abdominal pain Nausea and vomiting Bilateral hip pain No family history on file. Review of Systems Constitutional: Negative. HENT: Negative. Respiratory: Negative. Cardiovascular: Negative. Gastrointestinal: Positive for abdominal pain, nausea and vomiting. Negative for abdominal distention, anal bleeding, blood in stool, constipation, diarrhea and rectal pain. Genitourinary: Negative. Musculoskeletal: Positive for arthralgias. OBJECTIVE: Vitals: 05/19/24 1029 BP: 127/87 BP Location: Left arm Patient Position: Sitting BP Cuff Size: Large adult Pulse: 85 Resp: 16 Temp: 97.2 ??F (36.2 ??C) TempSrc: Oral SpO2: 99% Weight: 279 lb (127 kg) Height: 5' 4 (1.626 m) Physical Exam Constitutional: Appearance: Normal appearance. Cardiovascular: Rate and Rhythm: Normal rate and regular rhythm. Pulmonary: Effort: Pulmonary effort is normal. Breath sounds: Normal breath sounds. Abdominal: General: Abdomen is flat. Palpations: Abdomen is soft. Tenderness: There is abdominal tenderness in the epigastric area. Musculoskeletal: General: Tenderness present. Neurological: Mental Status: He is alert. Follow Up: No follow-ups on file. Current Outpatient Medications on File Prior to [...] Once daily. 1 each 0 carvedilol (Coreg) 12.5 MG tablet Take 1 tablet (12.5 mg) by mouth with breakfast and with evening meal. 60 tablet 11 clindamycin (Clindagel) 1 % gel Apply topically Once per day. Apply to affected areas for HS. 60 g 2 Continuous Glucose Black Top Spreader Machine Operator (FreeStyle Cherelle 2 [place]) device Scan sensor every 8 hours 1 each 0 Continuous Glucose Sensor (FreeStyle Cherelle 2 Sensor) misc Apply 1 sensor every 14 days 2 each 11 docusate sodium (Colace) 100 MG capsule TAKE 1 CAPSULE BY MOUTH TWICE DAILY 180 capsule 1 Dulaglutide (Trulicity) 3 MG/0.5ML solution auto-injector Inject 3 mg under the skin 1 (one) time per week. 2 mL 3 empagliflozin (Jardiance) 10 MG Take 1 tablet (10 mg) by mouth Once per day. 30 tablet 11 fluticasone (Flonase) 50 MCG/ACT nasal spray Administer 1-2 sprays into each nostril Once per day. Shake gently. Before first use, prime pump. After use, clean tip and replace cap. 16 g 2 FreeStyle lancets 1 each by Other route 4 times daily. 100 each 11 gabapentin (Neurontin) 600 MG tablet Take 1 tablet (600 mg) by mouth 3 times daily. 90 tablet 3 glucose 4 g chewable tablet Use [...] mouth Once per day. 90 tablet 3 pen needle 32G x 4 mm misc Use as instructed with insulin administration once daily 100 each 0 UltiCare Alcohol Swabs 70 % pads Use as directed with insulin administration once daily 100 each 3 [DISCONTINUED] omeprazole OTC (PriLOSEC OTC) 20 MG EC tablet Take 1 tablet (20 mg) by mouth before breakfast. Do not crush, chew, or split. 30 tablet 11 No current facility-administered medications on file prior to visit. Problem List Items Addressed This Visit Essential (primary) hypertension - Primary Blood pressure is at goal today I advised to continue with low-sodium diet and same medication regimen Upper abdominal pain I advise patient to avoid NSAIDs, spicy [...] night Urgent referral to GI done today Relevant Medications esomeprazole (NexIUM) [address] capsule sucralfate (Carafate) 1 g tablet Other Relevant Orders Referral to Gastroenterology Nausea and vomiting Relevant Medications esomeprazole (NexIUM) [address] capsule Other Relevant Orders Referral to Gastroenterology Bilateral hip pain I will order x-rays of his hips patient will be contacted with results and plan Relevant Orders XR Hip 2 or 3 Views Left XR Hip 2 or 3 Views Right documented in this encounter Miscellaneous Notes * Assessment & Plan Note - Matilde Hudson MD - 05/19/2024 12:09 PM EDT Associated Problem(s): Bilateral hip pain I will order x-rays of his hips patient will be contacted with results and plan * Assessment & Plan Note - Matilde Hudson MD - 05/19/2024 12:09 PM EDT Associated Problem(s): Essential (primary) hypertension Blood pressure is at goal today I advised to continue with low-sodium diet and same medication regimen * Assessment & Plan Note - Matilde Hudson MD - 05/19/2024 12:09 PM EDT Associated Problem(s): Upper abdominal pain I advise patient to avoid NSAIDs, spicy [...] night Urgent referral to GI done today documented in this encounter Plan of Treatment Upcoming Encounters Date Type Department Care Team (Late st Contact Info) Description 06/02/2024 10:30 AM EDT Medication Management [facility] [address] [place] [address] Kourtney Su, PharmD [address] [place] [address] 06/03/2024 11:30 AM EDT Office Visit [facility] [address] [place] [address] Rodger Cole MD [address] [place] [address] 06/23/2024 11:30 AM EDT Office Visit [facility] [address] [place] [address] Matilde Calabrese MD [address] [place] [address] Scheduled Referrals Name Type Priority Associated Diagnoses Order Schedule Referral to Gastroenterology Outpatient Referral Urgent Upper abdominal pain Nausea and vomiting, unspecified vomiting type Expected: 05/19/2024 (Approximate), Expires: 05/19/2025 documented as of this encounter Procedures Procedure Name Priority Date/Time Associated Diagnosis Comments XR HIP 2 OR 3 VIEWS RIGHT Routine 05/20/2024 10:14 AM EDT Bilateral hip pain XR HIP 2 OR 3 VIEWS LEFT Routine 05/20/2024 10:14 AM EDT Bilateral hip pain documented in this encounter Results * XR Hip 2 or 3 Views Right (05/20/2024 10:14 AM EDT) Anatomical Region Laterality Modality Lower Extremities, Hip Right Radiograp hic Imaging 05/20/2024 10:1 4 AM EDT Narrative 05/20/2024 11:06 AM EDT ?[facility] ?[address] ?[place] [address] ?XRay Report ? Signed ? Patient: Anderson,Raji ?MR#: [id number] ? : 1985 ?Acct:[id number] ? Age/Sex: 38 / M ?ADM Date: 04/01/25 ? Loc: HO.HHCX ? Attending Dr: Matilde Hudson MD ? Ordering Physician: Matilde Calabrese MD ?? Date of Service: 05/20/24 ?? Procedure(s): XR hip RT min 2V ?? Accession Number(s): [id number] ? cc: Matilde Calabrese MD ? EXAMINATION: [...] DD/ 1014 ? TD/TT: 05/20/24 1020 ? Director Of Curriculum And Instruction: ? Procedure Note Rich, Image - 05/20/[address] [address] XRay Report Signed Patient: Cedrick Anderson#: [id number] : 1985Acct:[id number] Age/Sex: 38 / MADM Date: 05/20/24 Loc: HO.HHCX Attending Dr: Matilde Hudson MD Ordering Physician: Matilde Calabrese MD Date of Service: 05/20/24 Procedure(s): XR hip RT min 2V Accession Number(s): [id number] cc: Matilde Calabrese MD EXAMINATION: XR HIP [...] Mesfin Olivo MD 05/20/2024 11:03 AM EDT RP Dictated By: Mesfin Olivo MD Signed By: <Electronically signed by Mesfin Olivo MD in OV> 05/20/24 1103 DD/ 1014 TD/TT: 05/20/24 1020 Director Of Curriculum And Instruction: us Matilde Hudson MD IMG XR PROCEDURES Fin al Result * XR Hip 2 or 3 Views Left (05/20/2024 10:14 AM EDT) Anatomical Region Laterality Modality Lower Extremities, Hip Left Radiograp hic Imaging 05/20/2024 10:1 4 AM EDT Narrative 05/20/2024 11:06 AM EDT ?[facility] ?[address] ?[place] [address] ?XRay Report ? Signed ? Patient: Anderson,Raji ?MR#: [id number] ? : 1985 ?Acct:[id number] ? Age/Sex: 38 / M ?ADM Date: 05/20/24 ? Loc: HO.HHCX ? Attending Dr: Matilde Hudson MD ? Ordering Physician: Matilde Calabrese MD ?? Date of Service: 05/20/24 ?? Procedure(s): XR hip LT min 2V ?? Accession Number(s): [id number] ? cc: Matilde Calabrese MD ? EXAMINATION: [...] DD/ 1014 ? TD/TT: 05/20/24 1020 ? Director Of Curriculum And Instruction: ? Procedure Note Olegariobrien, Salima - 05/20/2024 [facility] [address] [place] [address] XRay Report Signed Patient: Cedrick Anderson#: [id number] : 1985Acct:[id number] Age/Sex: 38 / MADM Date: 05/20/24 Loc: HO.HHCX Attending Dr: Matilde Hudson MD Ordering Physician: Matilde Calabrese MD Date of Service: 05/20/24 Procedure(s): XR hip LT min 2V Accession Number(s): [id number] cc: Matilde Calabrese MD EXAMINATION: XR HIP [...] 05/20/24 1103 DD/ 1014 TD/TT: 05/20/24 1020 Director Of Curriculum And Instruction: Matilde Hudson MD IMG XR PROCEDURES Fin al Result documented in this encounter Visit Diagnoses Diagnosis Essential (primary) hypertension- Primary Unspecified essential hypertension Upper abdominal pain Nausea and vomiting, unspecified vomiting type Bilateral hip pain Pain in joint, pelvic region and thigh documented in this encounter Additional Health Concerns Assessment Noted Time PHQ-9 Depression Total Score: 18 024 9:55 AM EST documented as of this encounter Care Teams Cnc Machine Operator Relationship Specialty Start Date End Date Matilde Calabrese MD [address] [place] [address] PCP - General Internal Medicine 11/23/23 Kourtney Su PharmD [address] [place] [address] Pharmacist Internal Medicine 12/05/23 Cecily Pinedo RN [address] [place] [phone] Telephone SterilizerOrdnance Technician 04/29/24 [facility] 01/09/24 documented as of this encounter
--- OUTSIDE RECORDS SUMMARY | 2024-05-20 11:59 | XMS_ITS | Encounter Summary ---
Author Organization [facility] Address [address] [facility] 7t [place] [address] Care Team Providers Care Yeast Supervisor Name Role Phone Matilde Calabrese MD Primary Care Provide r Kourtney Su PharmD Unavailable [phone] Cecily Pinedo RN Unavailable [phone] Reason for Visit * Reason Onset Date Comments Care Management 05/19/2024 C3CM- f/u call Encounter Details Date Type Department Care Team ([facility] st Contact Info) Description 05/19/2024 Telephone [facility] [address] [place], [place] [phone] Matilde Calabrese MD [address] [place] [address] Care Management (C3CM- f/u call) Social History [...] Telephone Encounter - Cecily Pinedo RN - 05/19/2024 12:19 PM EDT KENDRA Pinedo RN and ESPERANZA Eubanks met with patient in person today. Patient's name, and address confirmed. Patient confirms attending ED f/u visit today. He states the visit went well. Patient given order for x-rays. He states he attempted to complete the x-rays at [facility] today but was advised that the office is closed and referred to [facility]. Per patient, will complete tomorrow. Patient aware that a referral to GI was placed today. Patient will be contacted with appt details once scheduled. Per patient, informed he has an appt with [facility] tomorrow and would like to confirm visit. CM will f/u. Patient also states he received a v/m from to set up an appt. Would like assistance with outreaching office as he does not have office contact information. CM will f/u. Patient confirms receiving compression stockings from [facility]. He states these seem to work better than the ones he received from [facility] prior. CM informed patient that the US is scheduled on 05/28/24 at 10:30am at [facility], 2nd floor. He verbalizes understanding and denies any barriers to attending. Per patient, expecting to move to [place] in July. Patient is requesting to receive a text messagevia lisaClubLocal with all upcoming appt details. No further questions or concerns. CM reinforced direct contact information or CHW for any additional questions or concerns. Education provided on [facility] located in [facility]. Patient provided with after-hours line for [facility], , which offer night time triage service and option to transfer to provider relations representative provider if needed. Patient verbalizes understanding, and able to repeat back to ad copy writer. A follow up call will be placed within 10 days, patientagrees with plan. Patient scheduled to see OPH at [facility] on 05/20/24 at 8:00am. Appt details sent to patient [employer]. CM called [facility] to f/u on referral. Left v/m requesting return call. CM called patient. He confirms receiving the text with all appt details and agrees to f/u as needed. documented in this encounter Plan of Treatment Upcoming Encounters Date Type Department Care Team (Late st Contact Info) Description 06/02/2024 10:30 AM EDT Medication Management [facility] [address] [place], [place] [phone] Kourtney Su, PharmD [address] [place], [place] [phone] 06/03/2024 11:30 AM EDT Office Visit [facility] [address] [place], [place] [phone] Rodger Cole MD 505 [place] [address] 06/23/2024 11:30 AM EDT Office Visit [facility] [address] [place] [address] Matilde Calabrese MD [address] [place] [address] documented as of this encounter Visit Diagnoses Not on filedocumented in this encounter Additional Health Concerns Assessment Noted Time PHQ-9 Depression Total Score: 18 024 9:55 AM EST documented as of this encounter Care Teams Yeast Supervisor Relationship Specialty Start Date End Date Matilde Calabrese MD 230 [place] [address] PCP - General Internal Medicine 11/23/23 Kourtney Su PharmD [address] [place] [address] Pharmacist Internal Medicine 12/05/23 Cecily Pinedo, ROSA [address] [place] [address] Business Objects ConsultantBarrel Roller Operator 04/29/24 [facility] 01/09/24 documented as of this encounter
--- OUTSIDE RECORDS SUMMARY | 2024-05-20 11:59 | XMS_ITS | Encounter Summary ---
Author Organization [employer] Address [address] [facility] 7t [place] [address] Care Team Providers Care Floor Covering Contractor Name Role Phone Matilde Calabrese MD Primary Care Provide r Kourtney Su PharmD Unavailable [phone] Cecily Pinedo RN Unavailable [phone] Reason for Visit * Reason Comments Med Refill Encounter Details Date Type Department Care Team ([facility] st Contact Info) Description 05/01/2024 Refill [facility] 230 [place] [address] Matilde Calabrese MD 230 [place] [address] Social History Tobacco Use Types Packs/Day Years [...] the past 12 months, has t he [employer] of Fees, gas, oil or water [employer] threatened to shut off services in your [...] EDT Medication Management [facility] [address] [place] [address] Kourtney Su, PharmD 230 [place] [address] 06/03/2024 11:30 AM EDT Office Visit [facility] 505 [place] [address] Rodger Cole MD 505 [place], [place] [phone] 06/23/2024 11:30 AM EDT Office Visit [facility] [address] [place] [address] Matilde Calabrese MD 230 [place] [address] documented as of this encounter Visit Diagnoses Not on filedocumented in this encounter Additional Health Concerns Assessment Noted Time PHQ-9 Depression Total Score: 18 024 9:55 AM EST documented as of this encounter Care Teams Floor Covering Contractor Relationship Specialty Start Date End Date Matilde Calabrese MD 230 [place] [address] PCP - General Internal Medicine 11/23/23 Kourtney Su PharmD 230 [place] [address] Pharmacist Internal Medicine 12/05/23 Cecily Pinedo, ROSA [address] [place] [address] Sheet Metal Duct Installer HelperPasting Machine Offbearer 04/29/24 [facility] 01/09/24 documented as of this encounter
--- OUTSIDE RECORDS SUMMARY | 2024-05-20 11:59 | XMS_ITS | Encounter Summary ---
Author Organization [employer] Address [address] [facility] 7t [place] [address] Care Team Providers Care Ms Access Database Developer Name Role Phone Matilde Calabrese MD Primary Care Provide r Kourtney Su PharmD Unavailable [phone] Cecily Pinedo RN Unavailable [phone] Cecily Pinedo RN Unavailable [phone] Encounter Details Date Type Department Care Team ([facility] st Contact Info) Description 02/07/2024 Orders Only [facility] 230 [place] [address] Provider, MD Ari Social History Tobacco Use [...] Description 06/02/2024 10:30 AM EDT Medication Management [facility] [address] [place] [address] Kourtney Su, PharmD [address] [place] [address] 06/03/2024 11:30 AM EDT Office Visit [facility] 505 [place] [address] Rodger Cole MD 505 [place] [address] 06/23/2024 11:30 AM EDT Office Visit [facility] [address] [place] [address] Matilde Calabrese MD [address] [place] [address] documented as of this encounter Procedures Procedure [...] documented as of this encounter Care Teams Ms Access Database Developer Relationship Specialty Start Date End Date Matilde Calabrese MD 230 [place] [address] PCP - General Internal Medicine 11/23/23 Kourtney Su, EmmaD 230 [place] [address] Pharmacist Internal Medicine 12/05/23 Cecily Pinedo RN 505 [place] [address] Wool And Pelt GraderAssociate Civil Engineer 01/08/24 04/15/24 Cecily Pinedo RN 505 [place] [address] Wool And Pelt GraderAssociate Civil Engineer 04/29/24 [facility] 01/09/24 documented as of this encounter
--- OUTSIDE RECORDS SUMMARY | 2024-05-20 11:59 | XMS_ITS | Encounter Summary ---
Author Organization [employer] Address [address] 7t [place] [address] Care Team Providers Care Rcp Name Role Phone Matilde Calabrese MD Primary Care Provide r Kourtney Su PharmD Unavailable [phone] Cecily Pinedo RN Unavailable [phone] Encounter Details Date Type Department Care Team (Latest Contact Info) Description 05/19/2024 Travel Social History Tobacco Use Types Packs/Day [...] Upcoming Encounters Date Type Department Care Team ([facility] st Contact Info) Description 06/02/2024 10:30 AM EDT Medication Management [facility] [address] [place] [address] Kourtney Su, PharmD [address] [place] [address] 06/03/2024 11:30 AM EDT Office Visit [facility] 505 [place] [address] Rodger Cole MD 505 [place] [address] 06/23/2024 11:30 AM EDT Office Visit [facility] [address] [place] [address] Matilde Calabrese MD [address] [place] [address] documented as of this encounter Visit Diagnoses Not on filedocumented in this encounter Additional Health Concerns Assessment Noted Time PHQ-9 Depression Total Score: 18 024 9:55 AM EST documented as of this encounter Care Teams Rcp Relationship Specialty Start Date End Date Matilde Calabrese MD 230 [place] [address] PCP - General Internal Medicine 11/23/23 Kourtney Su PharmD 230 [place] [address] Pharmacist Internal Medicine 12/05/23 Cecily Pinedo RN [address] [place] [address] Laborer Starch FactoryInspector Materials And Processes 04/29/24 [facility] 01/09/24 documented as of this encounter
--- OUTSIDE RECORDS SUMMARY | 2024-05-20 11:59 | XMS_ITS | Encounter Summary ---
Author Organization [employer] Address [address] [facility] 7t [place] [address] Care Team Providers Care Entry Clerk Name Role Phone Alexandre Sandoval MD Primary Care Prov ider Matilde Calabrese MD Primary Care Provide r Kourtney Su PharmD Unavailable [phone] Cecily Pinedo RN Unavailable [phone] Cecily Pinedo RN Unavailable [phone] Reason for Visit * Reason Comments Med Change Request Encounter Details Date Type Department Care Team (Late st Contact Info) Description 05/23/2022 Refill [facility] 505 [place] [address] Alexandre Sandoval MD 505 [place] [address] Social History Tobacco Use Types Packs/Day Years [...] Description 06/02/2024 10:30 AM EDT Medication Management [facility] [address] [place] [address] Kourtney Su, PharmD 230 [place] [address] 06/03/2024 11:30 AM EDT Office Visit [facility] 505 [place] [address] Rodger Cole MD 505 [place] [address] 06/23/2024 11:30 AM EDT Office Visit [facility] [address] [place] [address] Matilde Calabrese MD [address] [place] [address] documented as of this encounter Visit Diagnoses Not on filedocumented in this encounter Care Teams Entry Clerk Relationship Specialty Start Date End Date Alexandre Sandoval MD 505 [place] [address] PCP - General Internal Medicine 07/20/19 11/22/23 Matilde Calabrese MD [address] [place] [address] PCP - General Internal Medicine 11/23/23 Kourtney Su, PharmD [address] [place] [address] Pharmacist Internal Medicine 12/05/23 Cecily Pinedo RN [address] [place] [address] Group Managing DirectorThrill Performer 01/08/24 04/15/24 Cecily Pinedo RN 505 [place] [address] Group Managing DirectorThrill Performer 04/29/24 [facility] 01/09/24 documented as of this encounter
--- OUTSIDE RECORDS SUMMARY | 2024-05-20 11:59 | XMS_ITS | Encounter Summary ---
Author Organization [employer] Address [address] [facility] 7t [place] [address] Care Team Providers Care Superintendent Cemetery Name Role Phone Matilde Calabrese MD Primary Care Provide r Kourtney Su PharmD Unavailable [phone] Cecily Pinedo RN Unavailable [phone] Cecily Pinedo RN Unavailable [phone] Encounter Details Date Type Department Care Team ([facility] st Contact Info) Description 11/23/2023 Orders Only [facility] [address] [place], [place] [phone] Alexandre Sandoval MD 505 [place] [address] Type 2 diabetes mellitus with hyperglycemia, without long-term current use of insulin ([facility] Social History Tobacco Use Types Packs/Day Years [...] Description 06/02/2024 10:30 AM EDT Medication Management [facility] [address] [place] [address] Kourtney Su PharmD [address] [place] [address] 06/03/2024 11:30 AM EDT Office Visit [facility] 505 [place] [address] Rodger Cole MD [address] [place] [address] 06/23/2024 11:30 AM EDT Office Visit [facility] [address] [place] [address] Matilde Calabrese MD [address] [place] [address] documented as of this encounter Visit Diagnoses Diagnosis Type 2 diabetes mellitus with hyperglycemia, without long-term current use of insulin ([facility]) documented in this encounter Care Teams Superintendent Cemetery Relationship Specialty Start Date End Date Matilde Calabrese MD [address] [place] [address] PCP - General Internal Medicine 11/23/23 Kourtney Su, PharmD 230 [place] [address] Pharmacist Internal Medicine 12/05/23 Cecily Pinedo, RN 505 [place] [address] Duralumin MetalworkerTool And Machine Maintainer 01/08/24 04/15/24 Cecily Pinedo RN 505 [place] [address] Duralumin MetalworkerTool And Machine Maintainer 04/29/24 [facility] 01/09/24 documented as of this encounter
--- OUTSIDE RECORDS SUMMARY | 2024-05-20 11:59 | XMS_ITS | Encounter Summary ---
Author Organization [employer] Address [address] [facility] 7t [place] [address] Care Team Providers Care Steam Tank Operator Name Role Phone Alexandre Sandoval MD Primary Care Prov ider Matilde Calabrese MD Primary Care Provide r Kourtney Su PharmD Unavailable [phone] Cecily Pinedo RN Unavailable [phone] Cecily Pinedo RN Unavailable [phone] Encounter Details Date Type Department Care Team ([facility] Contact Info) Description 07/18/2022 Orders Only [facility] [address] [place] [address] Belem Pedraza LPN Social History Tobacco Use [...] Department Care Team (Late Contact Info) Description 06/02/2024 10:30 AM EDT Medication Management [facility] 230 [place], [place] [phone] Kourtney Su, PharmD 230 [place], [place] [phone] 06/03/2024 11:30 AM EDT Office Visit [facility] 505 [place] [address] Rodger Cole MD 505 [place] [address] 06/23/2024 11:30 AM EDT Office Visit [facility] 230 [place] [address] Matilde Calabrese MD 230 [place] [address] documented as of this encounter Visit Diagnoses Not on filedocumented in this encounter Care Teams Steam Tank Operator Relationship Specialty Start Date End Date Alexandre Sandoval MD 505 [place] [address] PCP - General Internal Medicine 07/20/19 11/22/23 Matilde Calabrese MD [address] [place] [address] PCP - General Internal Medicine 11/23/23 Kourtney Su, EmmaD [address] [place] [address] Pharmacist Internal Medicine 12/05/23 Cecily Pinedo RN [address] [place] [address] Natural Sciences ProfessorDrywall Mechanic 01/08/24 04/15/24 Cecily Pinedo RN [address] [place] [address] Natural Sciences ProfessorDrywall Mechanic 04/29/24 [facility] 01/09/24 documented as of this encounter
--- OUTSIDE RECORDS SUMMARY | 2024-05-20 11:59 | XMS_ITS | Encounter Summary ---
Author Organization [employer] Address [address] [facility] 7t [place] [address] Care Team Providers Care Sensor Specialist Name Role Phone Alexandre Sandoval MD Primary Care Prov ider Matilde Calabrese MD Primary Care Provide r Kourtney Su PharmD Unavailable [phone] Cecily Pinedo RN Unavailable [phone] Cecily Pinedo RN Unavailable [phone] Encounter Details Date Type Department Care Team (Late st Contact Info) Description 11/08/2023 Telephone [facility] [address] [place] [address] Marie Birmingham PharmD 230 [place] [address] Social History Tobacco Use Types Packs/Day Years [...] Please assist in obtaining discharge paperwork from [facility] Patient was discharged on 11/04/2023. Thank you documented in this encounter Plan of Treatment Upcoming Encounters Date Type Department Care Team (Late st Contact Info) Description 06/02/2024 10:30 AM EDT Medication Management [facility] [address] [place] [address] Kourtney Su, PharmD [address] [place] [address] 06/03/2024 11:30 AM EDT Office Visit [facility]S 505 [place] [address] Rodger Cole MD 505 [place] [address] 06/23/2024 11:30 AM EDT Office Visit [facility] [address] [place] [address] Matilde Calabrese MD [address] [place] [address] documented as of this encounter Visit Diagnoses Not on filedocumented in this encounter Care Teams Sensor Specialist Relationship Specialty Start Date End Date Alexandre Sandoval MD 505 [place] [address] PCP - General Internal Medicine 07/20/19 11/22/23 Matilde Calabrese MD [address] [place] [address] PCP - General Internal Medicine 11/23/23 Kourtney Su, EmmaD [address] [place] [address] Pharmacist Internal Medicine 12/05/23 Cecily Pinedo RN 505 [place] [address] Internal Audit ManagerEthylbenzene Cracking Supervisor 01/08/24 04/15/24 Cecily Pinedo RN [address] [place] [address] Internal Audit ManagerEthylbenzene Cracking Supervisor 04/29/24 [facility] 01/09/24 documented as of this encounter
--- OUTSIDE RECORDS SUMMARY | 2024-05-20 11:59 | XMS_ITS | Clinical Summary ---
Author Organization 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 20 tablet 03/11/19 25 Active esomeprazole (NexIUM) [address] capsule Take 1 capsule (40 mg total) by mouth 1 (one) time each day before breakfast for 14 days. Do not open capsule. 14 each 05/13/19 25 025 Active omeprazole (PriLOSEC) [address] capsule Take 1 capsule (40 mg total) by mouth 1 (one) time each day for 14 days. Do not crush or chew. 14 each 05/03/19 25 025 Discontinued ondansetron ODT (ZOFRAN-ODT) 4 mg disintegrating tablet Let 1 tablet dissolve under the tongue three times daily as needed for nausea or vomiting. 10 tablet 05/03/19 25 025 ondansetron (ZOFRAN) 4 mg tablet Take 1 tablet (4 mg total) by mouth every 8 (eight) hours if needed for nausea or vomiting for up to 7 days. 20 tablet 05/13/19 25 025 Active Problems Problem Noted Date Diagnosed Date Sleep apnea Encounters Date Type Department Care Team Description 05/12/2024 11:23 AM EDT - 05/13/2024 12:23 AM EDT [facility] Emergency [address] [place] [phone] Acute abdominal pain (Primary Dx); Generalized abdominal pain; Nausea and vomiting, unspecified vomiting type Discharge Disposition: Home or Self Care 05/02/2024 2:54 PM EDT - 05/02/2024 9:39 PM EDT [facility] Emergency [address] [place] [phone] Dariel Schmidt MD Vomiting and diarrhea (Primary Dx); Gastroesophageal reflux disease, unspecified whether esophagitis present Discharge Disposition: Home or Self Care 03/16/2024 12:17 PM EST - 03/16/2024 6:31 PM EST [facility] Emergency [address] [place] [phone] Eloise Garber DO Patel, Parth B, MD Acute nonintractable headache, unspecified headache type (Primary Dx) Discharge Disposition: Home or Self Care 03/11/2024 8:45 AM EST Office Visit Orthopedic Surgery [facility] [address] [phone] Elias Agee DPTed Cellulitis of left foot (Primary Dx); Dermatophytosis of nail; Ingrowing nail; Diabetic mononeuropathy simplex (CMS/HCC); Pain in toe of left foot; Pain in toe of right foot 03/09/2024 10:05 PM EST - 03/10/2024 1:10 AM EST [facility] Emergency [address] [place] [phone] Ocular migraine (Primary Dx) Discharge Disposition: Home or Self Care 03/07/2024 9:30 AM EST Clinical Support General [address] [phone] Visit for suture removal (Primary Dx) 02/22/2024 10:30 AM EST Procedure visit General [address] [phone] Nic Nieto MD Epidermal inclusion cyst (Primary Dx) from Last 3 Months Surgical History Surgery Date Site/Laterality Comments OTHER SURGICAL HISTORY 04/16/2023 Left PROCEDURE: MN I&D BELOW FASCIA FOOT 1 BURSAL SPACE OTHER SURGICAL HISTORY 04/18/2023 Left PROCEDURE: MN INCISION BONE CORTEX FOOT; COMMENT: left, distal hallux OTHER SURGICAL HISTORY 04/18/2023 PROCEDURE: MN REPAIR INTERMEDIATE N/H/F/XTRNL GENT 2.5CM/< TOE SURGERY [...] Sign Reading Time Taken Comments Blood Pressure 130/101 05/12/2024 9:21 PM EDT Pulse 81 05/12/2024 9:21 PM EDT Temperature 36.8 ??C (98.3 ??F) 05/12/2024 9:21 PM ED T Respiratory Rate 18 05/12/2024 9:21 PM EDT Oxygen Saturation 98% 05/12/2024 9:21 PM EDT Inhaled Oxygen Concentration - - Weight 127 kg (280 lb) 05/12/2024 9:01 AM EDT Height 172.7 cm (5' 8 ) 05/12/2024 9:01 AM EDT Body Mass Index 42.57 05/12/2024 9:01 AM EDT Plan of Treatment Health Maintenance Due [...] 03/12/2024 Diabetes: Annual GFR (Glomerular Filtration Rate) 05/12/2025 05/12/2024, 05/02/2024, 03/16/2024, Additional history exists Hypertension/CHF/CAD Annual BMP Blood Test 05/12/2025 05/12/2024, 05/02/2024, 03/16/2024, Additional history exists DTaP,Tdap,and Td Vaccines (3 [...] Comments CT ABDOMEN PELVIS WO CONTRAST STAT 05/12/2024 9:31 PM EDT US ABDOMEN LIMITED STAT 05/12/2024 4: 02 PM EDT RBC MORPHOLOGY REVIEW STAT 05/12/2024 9:45 AM EDT CBC WITH AUTO DIFFERENTIAL STAT 05/12/2024 9:45 AM EDT LIPASE STAT 05/12/2024 9:45 AM EDT COMPREHENSIVE METABOLIC PANEL STAT 05/12/2024 9:45 AM EDT CBC AND DIFFERENTIAL STAT 05/12/2024 9:[address] ABDOMEN PELVIS WO CONTRAST STAT 05/02/2024 [...] 02/22/2024 10:50 AM EST Epidermal inclusion cyst from Last 3 Months Results * CT Abdomen Pelvis wo Contrast (05/12/2024 9:31 PM EDT) Only the most recent of2 resultswithin the time period is included. Anatomical Region Laterality Modality Body Computed Tomogra phy 05/12/2024 10:2 9 PM EDT Impressions 05/12/2024 10:29 PM EDT Duplex right renal collecting system with mild hydronephrosis and a 2 mm calculus in the right lower pole moiety. This document has been electronically signed by: Sy Hernández MD on 05/12/2024 22:29:22 Narrative 05/12/2024 10:29 PM EDT INDICATION: pain CT abdomen and pelvis without contrast Comparison: CT abdomen pelvis 05/02/2024 Findings: Diffuse esophageal mural thickening, nonspecific. Atelectasis. Small pericardial effusion. Mildly distended gallbladder. Thickening of the adrenal glands, nonspecific. Duplex right renal collecting system with mild hydronephrosis and a 2 mm calculus in the right lower pole moiety. No bowel obstruction, pneumoperitoneum, or pneumatosis. Prominent inguinal nodes and retroperitoneal nodes may be reactive however are nonspecific. Scattered colonic diverticulosis without diverticulitis or colitis. Normal appendix. Circumferential bladder wall thickening, nonspecific. The bones are intact. Procedure Note Sy Hernández MD - 05/12/2024 INDICATION: pain CT abdomen and pelvis without contrast Comparison: CT abdomen pelvis 05/02/2024 Findings: Diffuse esophageal mural thickening, nonspecific. Atelectasis. Small pericardial effusion. Mildly distended gallbladder. Thickening of the adrenal glands, nonspecific. Duplex right renal collecting system with mild hydronephrosis and a 2 mm calculus in the right lower pole moiety. No bowel obstruction, pneumoperitoneum, or pneumatosis. Prominent inguinal nodes and retroperitoneal nodes may be reactivehowever are nonspecific. Scattered colonic diverticulosis without diverticulitis or colitis. Normal appendix. Circumferential bladder wall thickening, nonspecific. The bones are intact. IMPRESSION: Duplex right renal collecting system with mild hydronephrosis and a 2 mm calculus in the right lower pole moiety. This document has been electronically signed by: Sy Hernández MD on 05/12/2024 22:29:22 us José Miguel King DO IMG CT PROCEDURES Final Result * US Abdomen Limited (05/12/2024 4:02 PM EDT) Anatomical Region Laterality Modality Body Ultrasound 05/12/2024 4:17 PM EDT Impressions 05/12/2024 4:19 PM EDT Impression: 1. No evidence of cholelithiasis or biliary obstruction. 2. Fatty liver. Telerad PA ([id number]) -------- FINAL REPORT -------- Dictated By: Edilma Camara Dictated Date: 05/12/2024 16:17 ET Assigned Physician: Edilma Camara Reviewed and Electronically Signed By: Edilma Camara Signed Date: 05/12/2024 16:19 ET Workstation ID: [id number] Transcribed By: Self Edit Transcribed Date: 05/12/2024 16:17 ET Narrative 05/12/2024 4:19 PM EDT History: Worsening abdominal pain. Comparison: Noncontrast CT abdomen/pelvis 05/02/24 Findings: Real-time imaging of the abdomen, limited to the right upper quadrant, was performed. The hepatic echogenicity is diffusely increased, consistent with fatty infiltration. No hepatic masses are identified. The portal vein is patent and exhibits normal, hepatopedal flow. The gallbladder is physiologically distended without evidence of calculus or wall thickening. The common duct is normal in caliber, measuring 5 mm at the level of the hepatic artery and portal vein. No ascites is seen in the right upper quadrant. A survey view of the right kidney is unremarkable. The pancreas is partially obscured by bowel gas shadowing; the visualized portions of the neck are unremarkable. Procedure Note Edilma Camara MD - 05/12/2024 History: Worsening abdominal pain. Comparison: Noncontrast CT abdomen/pelvis 05/02/24 Findings: Real-time imaging of the abdomen, limited to the right upper quadrant, wasperformed. The hepatic echogenicity is diffusely increased, consistent with fattyinfiltration. No hepatic masses are identified. The portal vein is patentand exhibits normal, hepatopedal flow. The gallbladder is physiologically distended without evidence of calculusor wall thickening. The common duct is normal in caliber, measuring 5 mmat the level of the hepatic artery and portal vein. No ascites is seen in the right upper quadrant. A survey view of the rightkidney is unremarkable. The pancreas is partially obscured by bowel gasshadowing; the visualized portions of the neck are unremarkable. IMPRESSION: Impression: 1. No evidence of cholelithiasis or biliary obstruction. 2. Fatty liver. Gt WADE ([id number]) -------- FINAL REPORT -------- Dictated By: Edilma Camara Dictated Date: 05/12/2024 16:17 ET Assigned Physician: Edilma Camara Reviewed and Electronically Signed By: Edilma Camara Signed Date: 05/12/2024 16:19 ET Workstation ID: [id number] Transcribed By: Self Edit Transcribed Date: 05/12/2024 16:17 ET Rody WADE G US PROCEDURES Final Result * (ABNORMAL) RBC morphology review (05/12/2024 9:45 AM EDT) Rbc Morphology Consistent with indices Consistent with indices, Normal for LAB HEMETOLOGY METHOD 05/12/2024 11:06 AM EDT [facility] Platelet Morphology - WAM See Note(A) Normal LAB HEMETOLOGY METHOD 05/12/2024 11:06 AM EDT [facility] Comment:PLT: Normal Blood Venous blood specimen / Unknown Venipuncture / Unknown 05/12/2024 9:45 AM EDT 05/12/2024 10:25 AM EDT us Dariel Schmidt MD LAB BLOOD ORDERABLES Aisha l Result [facility] [address] [place] [address], [place] [phone] * (ABNORMAL) CBC auto differential (05/12/2024 9:45 AM EDT) Only the most recent of3 resultswithin the time period is included. WBC 15.7(H) 4.8 - 10.8 K/mcL LAB HEMETOLOGY METHOD 05/12/2024 11:06 AM [facility] RBC 4.40(L) 4.50 - 5.50 M/mcL LAB HEMETOLOGY METHOD 05/12/2024 11:06 AM [facility] Hemoglobin 13.5 13.5 - 17.5 g/dL LAB HEMETOLOGY METHOD 05/12/2024 11:06 AM [facility] Hematocrit 39.0(L) 42.0 - 54.0 % LAB HEMETOLOGY METHOD 05/12/2024 11:06 AM [facility] MCV 88.0 79.0 - 98.0 FL LAB HEMETOLOGY METHOD 05/12/2024 11:06 AM [facility] MCH 30.5 27.0 - 32.0 pcg LAB HEMETOLOGY METHOD 05/12/2024 11:06 AM [facility] MCHC 34.6 32.0 - 37.0 g/dL LAB HEMETOLOGY METHOD 05/12/2024 11:06 AM [facility] RDW 12.5 11.0 - 15.0 % LAB HEMETOLOGY METHOD 05/12/2024 11:06 AM [facility] Platelets 317 130 - 400 K/mcL LAB HEMETOLOGY METHOD 05/12/2024 11:06 AM [facility] MPV 10.3 7.0 - 11.0 FL LAB HEMETOLOGY METHOD 05/12/2024 11:06 AM [facility] NRBC 0.0 <1.0 % LAB HEMETOLOGY METHOD 05/12/2024 11:06 AM [facility] NRBC Absolute 0.00 <0.10 K/mcL LAB HEMETOLOGY METHOD 05/12/2024 11:06 AM [facility] Neutrophils Relative 46.7 % LAB HEMETOLOGY METHOD 05/12/2024 11:06 AM [facility] Comment:This is an appended report. These results have been appended to a previously preliminary verified report. Lymphocytes Relative 20.3 % LAB HEMETOLOGY METHOD 05/12/2024 11:06 AM [facility] Comment:This is an appended report. These results have been appended to a previously preliminary verified report. Monocytes Relative 5.4 % LAB HEMETOLOGY METHOD 05/12/2024 11:06 AM [facility] Comment:This is an appended report. These results have been appended to a previously preliminary verified report. Eosinophils Relative 26.3 % LAB HEMETOLOGY METHOD 05/12/2024 11:06 AM [facility] Comment:This is an appended report. These results have been appended to a previously preliminary verified report. Basophils Relative 1.0 % LAB HEMETOLOGY METHOD 05/12/2024 11:06 AM [facility] Comment:This is an appended report. These results have been appended to a previously preliminary verified report. Immature Granulocytes Relative 0.3 % LAB HEMETOLOGY METHOD 05/12/2024 11:06 AM [facility] Comment:This is an appended report. These results have been appended to a previously preliminary verified report. Neutrophils Absolute 7.30(H) 1.50 - 7.00 K/mcL LAB HEMETOLOGY METHOD 05/12/2024 11:06 AM [facility] Comment:This is an appended report. These results have been appended to a previously preliminary verified report. Lymphocytes Absolute 3.17 1.00 - 5.00 K/mcL LAB HEMETOLOGY METHOD 05/12/2024 11:06 AM [facility] Comment:This is an appended report. These results have been appended to a previously preliminary verified report. Monocytes Absolute 0.85 0.20 - 1.00 K/mcL LAB HEMETOLOGY METHOD 05/12/2024 11:06 AM [facility] Comment:This is an appended report. These results have been appended to a previously preliminary verified report. Eosinophils Absolute 4.12(H) 0.00 - 0.50 K/mcL LAB HEMETOLOGY METHOD 05/12/2024 11:06 AM [facility] Comment:This is an appended report. These results have been appended to a previously preliminary verified report. Basophils Absolute 0.16 0.00 - 0.20 K/mcL LAB HEMETOLOGY METHOD 05/12/2024 11:06 AM [facility] Comment:This is an appended report. These results have been appended to a previously preliminary verified report. Immature Granulocytes Absolute 0.05(H) 0.00 - 0.03 K/mcL LAB HEMETOLOGY METHOD 05/12/2024 11:06 AM [facility] Comment:This is an appended report. These results have been appended to a previously preliminary verified report. Blood Venous blood specimen / Unknown Venipuncture / Unknown 05/12/2024 9:45 AM EDT 05/12/2024 10:25 AM EDT Dariel Schmidt MD LAB BLOOD ORDERABLES Aisha l Result Performing Organization Address City/[facility]/ZIP Co de Phone Number [facility] [address] [place] [address], [place] [phone] * Lipase (05/12/2024 9:45 AM EDT) Only the most recent of3 resultswithin the time period is included. Pathologist [facility] Lipase 33 13 - 75 unit/L LAB CHEMISTRY METHOD 05/12/2024 10:55 AM EDT [facility] Blood Venous blood specimen / Unknown Venipuncture / Unknown 05/12/2024 9:45 AM EDT 05/12/2024 10:25 AM EDT Dariel Schmidt MD LAB BLOOD ORDERABLES Aisha l Result Performing Organization Address [facility]/ZIP Co de Phone Number [facility] [address] [place] [address], [place] [phone] * (ABNORMAL) Comprehensive metabolic panel (05/12/2024 9:45 AM EDT) Only the most recent of3 resultswithin the time period is included. Sodium 136 133 - 145 mmol/L LAB CHEMISTRY METHOD 05/12/2024 10:56 AM EDT [facility] Potassium 4.2 3.5 - 5.5 mmol/L LAB CHEMISTRY METHOD 05/12/2024 10:56 AM EDT [facility] Chloride 104 96 - 110 mmol/L LAB CHEMISTRY METHOD 05/12/2024 10:56 AM EDT [facility] CO2 27 21 - 32 mmol/L LAB CHEMISTRY METHOD 05/12/2024 10:56 AM EDT [facility] Anion Gap 5 3 - 11 LAB CHEMISTRY METHOD 05/12/2024 10:56 AM [facility] Glucose 157(H) 70 - 100 mg/dL LAB CHEMISTRY METHOD 05/12/2024 10:56 AM [facility] BUN 14 5 - 25 mg/dL LAB CHEMISTRY METHOD 05/12/2024 10:56 AM [facility] Creatinine 0.98 0.70 - 1.30 mg/dL LAB CHEMISTRY METHOD 05/12/2024 10:56 AM [facility] eGFR 102 >=60 mL/min/1. 73m2 LAB CHEMISTRY METHOD 05/12/2024 10:56 AM [facility] Comment:Calculation based on the??Chronic Kidney Disease Epidemiology Collaboration (CKD-EPI) equation refit??without adjustment for race. BUN/Creatinine Ratio 14.3 LAB CHEMISTRY METHOD 05/12/2024 10:56 AM [facility] Calcium 9.3 8.5 - 10.5 mg/dL LAB CHEMISTRY METHOD 05/12/2024 10:56 AM [facility] AST (SGOT) 14 10 - 42 unit/L LAB CHEMISTRY METHOD 05/12/2024 10:56 AM [facility] ALT (SGPT) 20 10 - 60 unit/L LAB CHEMISTRY METHOD 05/12/2024 10:56 AM [facility] Alkaline Phosphatase 87 42 - 121 unit/L LAB CHEMISTRY METHOD 05/12/2024 10:56 AM [facility] Total Protein 7.9 6.0 - 8.0 g/dL LAB CHEMISTRY METHOD 05/12/2024 10:56 AM [facility] Albumin 4.1 3.2 - 5.0 g/dL LAB CHEMISTRY METHOD 05/12/2024 10:56 AM [facility] Total Bilirubin 0.5 0.0 - 1.4 mg/dL LAB CHEMISTRY METHOD 05/12/2024 10:56 AM [facility] Blood Venous blood specimen / Unknown Venipuncture / Unknown 05/12/2024 9:45 AM EDT 05/12/2024 10:25 AM EDT Dariel Schmidt MD LAB BLOOD ORDERABLES Aisha l Result [facility] [address] [place] [address], [place] [phone] * Magnesium (05/02/2024 2:43 PM EDT) [facility] Magnesium 2.2 1.9 - 2.6 mg/dL LAB CHEMISTRY METHOD 05/02/2024 3:48 PM EDT [facility] Blood Venous blood specimen / Unknown Venipuncture / Unknown 05/02/2024 2:43 PM EDT 05/02/2024 3:16 PM EDT Dariel Schmidt MD LAB BLOOD ORDERABLES Aisha l Result Performing Organization Address City/[facility]/ZIP Co de Phone Number [facility] [address] [place] [address], [place] [phone] * Respiratory virus panel molecular study (03/16/2024 2:28 PM EST) [facility] Adenovirus Detection by PCR Not Detected Not Detected LAB MICROBIOLOGY METHOD 03/16/2024 3:55 PM EST [facility] Influenza A PCR Not Detected Not Detected LAB MICROBIOLOGY METHOD 03/16/2024 3:55 PM EST [facility] Influenza B PCR Not Detected Not Detected LAB MICROBIOLOGY METHOD 03/16/2024 3:55 PM EST [facility] Coronavirus 229E Not Detected Not Detected LAB MICROBIOLOGY METHOD 03/16/2024 3:55 PM EST [facility] Coronavirus HKU1 Not Detected Not Detected LAB MICROBIOLOGY METHOD 03/16/2024 3:55 PM EST [facility] Coronavirus OC43 Not Detected Not Detected LAB MICROBIOLOGY METHOD 03/16/2024 3:55 PM EST [facility] Coronavirus NL63 Not Detected Not Detected LAB MICROBIOLOGY METHOD 03/16/2024 3:55 PM [facility] Parainfluenza Virus 1 Not Detected Not Detected LAB MICROBIOLOGY METHOD 03/16/2024 3:55 PM [facility] Parainfluenza Virus 2 Not Detected Not Detected LAB MICROBIOLOGY METHOD 03/16/2024 3:55 PM [facility] Parainfluenza Virus 3 Not Detected Not Detected LAB MICROBIOLOGY METHOD 03/16/2024 3:55 PM [facility] Parainfluenza Virus 4 Not Detected Not Detected LAB MICROBIOLOGY METHOD 03/16/2024 3:55 PM [facility] RSV PCR Not Detected Not Detected LAB MICROBIOLOGY METHOD 03/16/2024 3:55 PM [facility] Human Metapneumovirus A and B Not Detected Not Detected LAB MICROBIOLOGY METHOD 03/16/2024 3:55 PM [facility] Rhinovirus/Entero virus Not Detected Not Detected LAB MICROBIOLOGY METHOD 03/16/2024 3:55 PM [facility] Bordetella pertussis Not Detected Not Detected LAB MICROBIOLOGY METHOD 03/16/2024 3:55 PM [facility] Bordetella parapertussis Not Detected Not Detected LAB MICROBIOLOGY METHOD 03/16/2024 3:55 PM [facility] Mycoplasma pneumo by PCR Not Detected Not Detected LAB MICROBIOLOGY METHOD 03/16/2024 3:55 PM [facility] Chlamydia pneumoniae Not Detected Not Detected LAB MICROBIOLOGY METHOD 03/16/2024 3:55 PM [facility] SARS COV-2 Not Detected Not Detected LAB MICROBIOLOGY METHOD 03/16/2024 3:55 PM [facility] Swab Both anterior nares / Unknown Non-blood Collection / Unknown 03/16/2024 2:28 PM EST 03/16/2024 2:51 PM EST Narrative [facility] - 03/16/2024 3:55 PM EST Testing was performed using the [employer] Respiratory Pathogen PCR Assay. All results must [...] the limit of detection. Rosa WADE LAB MICROBIOLOGY - GEN ERAL ORDERABLES Final Result [facility] [address] [place] [address], * CT Head wo Contrast (03/16/2024 2:11 PM EST) Anatomical Region Laterality Modality Head and Neck Computed Tomogra phy 03/16/2024 2:30 PM EST Impressions 03/16/2024 2:32 PM EST Impression: 1. No significant intracranial abnormality identified. 2. Partial opacification of the mastoid air cells, likely infectious/inflammatory. Telerad SHERI ([id number]) -------- FINAL REPORT -------- Dictated By: Edilma Camara Dictated Date: 03/16/2024 14:30 ET Assigned Physician: Edilma Camara Reviewed and Electronically Signed By: Edilma Camara Signed Date: 03/16/2024 14:32 ET Workstation ID: [id number] Transcribed By: Self Edit Transcribed Date: 03/16/2024 [...] without intravenous contrast. DLP: 900.99 mGy/cm GE Kabbagepeed VCT Iterative reconstruction technique Findings: The ventricular [...] the mastoid air cells, likelyinfectious/inflammatory. Telerad SHERI ([id number]) -------- FINAL REPORT -------- Dictated By: Edilma Camara Dictated Date: 03/16/2024 14:30 ET Assigned Physician: Edilma Camara Reviewed and Electronically Signed By: Edilma Camara Signed Date: 03/16/2024 14:32 ET Workstation ID: [id number] Transcribed By: Self Edit Transcribed Date: 03/16/2024 14:30 ET us Rosa WADE IMG CT PROCEDURES Aisha l Result * Lactate, with reflex (03/16/2024 10:42 AM EST) LACTIC ACID 1.1 0.4 - 2.0 mmol/L LAB CHEMISTRY METHOD 03/16/2024 11:42 AM EST [facility] Blood Venous blood specimen / Unknown Venipuncture / Unknown 03/16/2024 10:42 AM EST 03/16/2024 11:06 AM EST Eloise Mendez Ranulfo Jcarlos ALVARADO LAB BLOOD ORDERABLES Aisha l Result Performing Organization Address City/[facility]/ZIP Co de Phone Number [facility] [address] [place] [address], [place] [phone] * (ABNORMAL) Thyroid stimulating hormone with reflex to free t4 and free t3 (TSH Reflex) (03/16/2024 10:42 AM EST) [facility] TSH 4.77(H) 0.40 - 4.00 mcIU/mL LAB CHEMISTRY METHOD 03/16/2024 2:53 PM EST [facility] Blood Venous blood specimen / Unknown Venipuncture / Unknown 03/16/2024 10:42 AM EST 03/16/2024 10:52 AM EST Rosa WADE LAB BLOOD ORDERABLES F inal Result [facility] [address] [place] [address], [place] [phone] * Free thyroxine with reflex to free triiodothyronine (03/16/2024 10:42 AM EST) Pathologist [facility] Free T4 1.29 0.70 - 1.80 ng/dL LAB CHEMISTRY METHOD 03/16/2024 3:21 PM EST [facility] Blood Venous blood specimen / Unknown Venipuncture / Unknown 03/16/2024 10:42 AM EST 03/16/2024 10:52 AM EST Rosa WADE LAB BLOOD ORDERABLES F inal Result Performing Organization Address [facility]/ZIP Co de Phone Number [facility] [address] [place] [address], [place] [phone] * Triiodothyronine free (03/16/2024 10:42 AM EST) T3, Free 328 230 - 420 pcg/dL LAB CHEMISTRY METHOD 03/16/2024 3:49 PM EST [facility] Blood Venous blood specimen / Unknown Venipuncture / Unknown 03/16/2024 10:42 AM EST 03/16/2024 10:52 AM EST Rosa WADE LAB BLOOD ORDERABLES F inal Result Performing Organization Address [facility] [facility] Co de Phone Number [facility] [address] [place] [address], [place] [phone] * SUTURE REMOVAL (03/07/2024 9:41 AM EST) Narrative Jeanette Lara MA - 03/07/2024 9:41 AM EST Jeanette Lara MA ? 03/07/2024 ??9:41 AM Suture Removal Date/Time: 03/07/2024 9:41 AM Performed by: Jeanette Lara MA Authorized by: Nic Nieto MD ?? Consent: ??Consent obtained: ??Verbal ??Consent given by: ??Patient ??Alternatives discussed: ??No treatment [place] protocol: ??Patient identity confirmed: ??Verbally with patient Location: ??Location: ??Head/neck ??Head/neck location: ??Neck Procedure details: ??Wound appearance: ??No signs of infection and good wound healing Post-procedure details: ??Post-removal: ??No dressing applied ??Procedure completion: ??Tolerated Nic Nieto MD IN CLINIC/BEDSIDE ORDERABLES Fi nal Result * Tissue Exam (02/22/2024 10:50 AM EST) Final Diagnosis Skin, right neck-biopsy: -EPIDERMAL INCLUSION CYST, RUPTURED 02/26/2024 12:45 PM EST [facility] Clinical Information Epidermal inclusion cyst L72.0 02/26/2024 12:45 PM EST [facility] Gross Description A. Neck, right neck: Labeled neck . Received in formalin is a 1.4 x 0.3 cm rudd-brown skin ellipse excised with depth of 0.8 cm. The cut surfaces display a 0.3 cm possible cyst containing a rudd-yellow friable substance. Stone Belt Sander sections are submitted in one cassette, to include the entirety of the possible cyst, three pieces. MAR[place] 02/26/2024 12:45 PM [facility] Disclaimer Unless otherwise specified, all tissue is 10% NB formalin fixed and paraffin embedded. 02/26/2024 12:45 PM [facility] Tissue Neck structure / Unknown Non-blood Collection / Unknown 02/22/2024 10:50 AM EST 02/22/2024 11:21 AM EST us Nic Nieto MD LAB PATHOLOGY ORDERABLES Final Result [facility] [address] [place] [address], from Last 3 Months Insurance MEDICAID - [place] Care Teams Vending Machine Mechanic Relationship Specialty Start Date End Date Matilde Calabrese MD [address] [phone] PCP - General 11/22/23
--- OUTSIDE RECORDS SUMMARY | 2024-05-20 11:59 | XMS_ITS | Encounter Summary ---
Author Organization [employer] Address [address] [facility] 7t [place] [address] Care Team Providers Care Driver Recruiter Name Role Phone Matilde Calabrese MD Primary Care Provide r Kourtney Su PharmD Unavailable [phone] Cecily Pinedo RN Unavailable [phone] Cecily Pinedo RN Unavailable [phone] Encounter Details Date Type Department Care Team ([facility] st Contact Info) Description 01/31/2024 Orders Only [facility] [address] [place] [address] Provider, MD Ari Social History Tobacco Use [...] Description 06/02/2024 10:30 AM EDT Medication Management [facility] [address] [place] [phone] Kourtney Su, PharmD [address] [place] [address] 06/03/2024 11:30 AM EDT Office Visit [facility] P[facility]S [address] [place] [address] Rodger Cole MD [address] [place] [address] 06/23/2024 11:30 AM EDT Office Visit [facility] [address] [place] [address] Matilde Calabrese MD [address] [place] [address] documented as of this encounter Procedures Procedure [...] documented as of this encounter Care Teams Driver Recruiter Relationship Specialty Start Date End Date Matilde Calabrese MD [address] [place] [address] PCP - General Internal Medicine 11/23/23 Kourtney Su, EmmaD [address] [place] [address] Pharmacist Internal Medicine 12/05/23 Cecily Pinedo RN [address] [place] [address] Diver AssistantTipple Worker 01/08/24 04/15/24 Cecily Pinedo RN [address] [place] [address] Diver AssistantTipple Worker 04/29/24 [facility] 01/09/24 documented as of this encounter
--- OUTSIDE RECORDS SUMMARY | 2024-05-20 11:59 | XMS_ITS | Encounter Summary ---
Author Organization [employer] Address [address] [facility] 7t [place] [address] Care Team Providers Care Environmental Safety Specialist Name Role Phone Matilde Calabrese MD Primary Care Provide r Kourtney Su PharmD Unavailable [phone] Cecily Pinedo RN Unavailable [phone] Cecily Pinedo RN Unavailable [phone] Reason for Visit * Reason Onset Date Comments Call Back Request 02/29/2024 Encounter Details Date Type Department Care Team (Late st Contact Info) Description 02/29/[address] [facility] [address] [place] [address] Matilde Calabrese MD [address] [place] [address] Call Back Request Social History Tobacco Use [...] Miscellaneous Notes * Telephone Encounter - Faisal Raimundo - 02/29/2024 12:45 PM EST Tc from pt requesting a call back to discuss BP monitor. documented in this encounter Plan of Treatment Upcoming Encounters Date Type Department Care Team (Late st Contact Info) Description 06/02/2024 10:30 [address] EDT Med[address] [facility] [address] [place] [address] Kourtney Su, PharmD [address] [place], [place] [phone] 06/03/2024 11:30 AM EDT Office Visit [facility] MED & PEDS [address] [place], [place] [phone] Rodger Cole MD [address] [place], [place] [phone] 06/23/2024 11:30 AM EDT Office Visit [facility] [address] [place] [address] Matilde Calabrese MD [address] [place] [address] documented as of this encounter Visit Diagnoses Not on filedocumented in this encounter Additional Health Concerns Assessment Noted Time PHQ-9 Depression Total Score: 18 024 9:55 AM EST documented as of this encounter Care Teams Environmental Safety Specialist Relationship Specialty Start Date End Date Matilde Calabrese MD [address] [place] [address] PCP - General Internal Medicine 11/23/23 Kourtney Su, EmmaD [address] [place] [address] Pharmacist Internal Medicine 12/05/23 Cecily Pinedo RN 505 [facility] [place] [address] Food Order Delivery RunnerArmature Inspector 01/08/24 04/15/24 Cecily Pinedo RN 505 [facility] [place] [address] Food Order Delivery RunnerArmature Inspector 04/29/24 [facility] 01/09/24 documented as of this encounter
== END 2024-05-20 10:15 | disposition home or self-care (01) ==
LOC: HO.HHCX 10:14
PROVIDERS: Visit Provider Internal Medicine
DX: M25.551 Pain in right hip (principal); M25.552 Pain in left hip
CPT/HCPCS: 73502

== ENCOUNTER → 2024-05-20 10:14 | Outpatient (BNV) | payer MEDICAID, SELFPAY | PROVIDERS: Visit Provider Radiology Diagnostic Radiology | DX: M25.551 Pain in right hip (principal); M25.552 Pain in left hip | CPT/HCPCS: 73502 ==

== ENCOUNTER 2024-05-28 10:24 | Outpatient (REF) | payer MEDICAID, SELFPAY ==
--- NOTE | ~2024-05-28 | US_ITS ---
EXAMINATION: US LOWER EXTREMITY VENOUS (REFLUX EXAM), BILATERAL CLINICAL INFORMATION: Varices. COMPARISON: None. TECHNIQUE: Color flow triplex imaging and compression Doppler was performed to evaluate both the deep and the superficial systems bilaterally. To evaluate the superficial system, the examination was performed in the upright position. Color-flow Doppler ultrasound and compression ultrasound were utilized. In addition, maneuvers were utilized to demonstrate reflux. FINDINGS: 1. DEEP VENOUS ULTRASOUND OF THE RIGHT LOWER EXTREMITY: Common Femoral Vein: Compressible, normal respiratory variation and augmented flow. Femoral Vein: Compressible, normal color flow and augmentation. Popliteal Vein: Compressible, normal augmentation. Deep Reflux: There is no evidence of reflux in the deep system in either the common femoral vein, superficial femoral or the popliteal vein. There is no evidence of a Fabian's cyst. 2. SUPERFICIAL ULTRASOUND WITH DOPPLER OF RIGHT LOWER EXTREMITY: GREAT SAPHENOUS VEIN: Saphenofemoral Junction: 0.6 cm; Reflux: 0 ms Proximal Thigh: 0.4 cm; Reflux: 0 ms Mid Thigh: 0.3 cm; Reflux: 0 ms Distal Thigh: 0.3 cm; Reflux: 0 ms At Knee: 0.3 cm; Reflux: 0 ms Proximal Calf: 0.2 cm; Reflux: 0 ms Mid Calf: 0.1 cm; Reflux: 0 ms Distal Calf: 0.1 cm; Reflux: 0 ms DUPLICATED MEDIAL GREAT SAPHENOUS VEIN: Diameter: None imaged Reflux: NA DUPLICATED LATERAL GREAT SAPHENOUS VEIN: Diameter: None imaged Reflux: NA SMALL SAPHENOUS VEIN: Saphenopopliteal Junction: 0.1 cm; Reflux: 0 ms Proximal: 0.1 cm; Reflux: 0 ms Distal: 0.2 cm; Reflux: 0 ms VEIN OF GIACOMINI: Size: 0.2 cm. Reflux: NA PERFORATORS: Location: Small saphenous vein mid segment. Proximal and mid calf. Size: 0.2-0.3 cm. Reflux: NA VARICOSITIES: Location: None imaged. Size: NA Reflux: NA 3. DEEP VENOUS ULTRASOUND OF THE LEFT LOWER EXTREMITY: Common Femoral Vein: Compressible, normal respiratory variation and augmented flow. Femoral Vein: Compressible, normal color flow and augmentation. Popliteal Vein: Compressible, normal augmentation. Deep Reflux: There is no evidence of reflux in the deep system in either the common femoral vein, superficial femoral or the popliteal vein. There is no evidence of a Fabian's cyst. 4. SUPERFICIAL ULTRASOUND WITH DOPPLER OF LEFT LOWER EXTREMITY: GREAT SAPHENOUS VEIN: Saphenofemoral Junction: 0.8 cm; Reflux: 0 ms Proximal Thigh: 0.3 cm; Reflux: 0 ms Mid Thigh: 0.2 cm; Reflux: 0 ms Distal Thigh: 0.3 cm; Reflux: 0 ms At Knee: 0.2 cm; Reflux: 0 ms Proximal Calf: 0.2 cm; Reflux: 0 ms Mid Calf: 0.2 cm; Reflux: 0 ms Distal Calf: 0.2 cm; Reflux: 0 ms DUPLICATED MEDIAL GREAT SAPHENOUS VEIN: Diameter: None imaged Reflux: NA DUPLICATED LATERAL GREAT SAPHENOUS VEIN: Diameter: 0.3 cm. Reflux: NA SMALL SAPHENOUS VEIN: Saphenopopliteal Junction: 0.1 cm; Reflux: 0 ms Proximal: 0.2 cm; Reflux: 0 ms Distal: 0.2 cm; Reflux: 0 ms VEIN OF GIACOMINI: Size: NA Reflux: NA PERFORATORS: Location: Small saphenous vein in the mid segment. Great saphenous vein from the mid thigh to the distal calf. Size: 0.1-0.2 cm. Reflux: NA VARICOSITIES: Location: None Imaged Size: NA Reflux: NA US/US venous insuf bilat IMPRESSION: Right: No venous insufficiency. Perforators without reflux. Left: No venous insufficiency. Perforators without reflux. Electronically signed by: David Iyer MD 05/28/2024 12:24 PM EDT
--- OUTSIDE RECORDS SUMMARY | 2024-05-28 11:47 | XMS_ITS | Encounter Summary ---
Author Organization [employer] Address 75 [facility] 7t [place] [address] Care Team Providers Care Opener Tender Name Role Phone Alexandre Sandoval MD Primary Care Prov ider Matilde Calabrese MD Primary Care Provide r Kourtney Su PharmD Unavailable Cecily Pinedo RN Unavailable [phone] Cecily Pinedo RN Unavailable [phone] Reason for Visit * Reason Comments Med Change Request Encounter Details Date Type Department Care Team (Late st Contact Info) Description 05/23/2022 Refill [facility] CH[facility] MED & PEDS [address] [place] [address] Alexandre Sandoval MD [address] [place] [address] Social History Tobacco Use Types Packs/Day Years [...] Description 06/02/2024 10:30 AM EDT Medication Management [facility]ICINE [address] [place] [address] Kourtney Su, PharmD [address] [place] [address] 06/03/2024 11:30 AM EDT Office Visit [facility] MED & PEDS [address] [place] [address] Rodger Cole MD [address] [place] [address] 06/23/2024 11:30 AM EDT Office Visit [facility] [address] [place] [address] Matilde Calabrese MD [address] [place] [address] documented as of this encounter Visit Diagnoses Not on filedocumented in this encounter Care Teams Opener Tender Relationship Specialty Start Date End Date Alexandre Sandoval MD [address] [place] [address] PCP - General Internal Medicine 07/20/19 11/22/23 Matilde Calabrese MD [address] [place] [address] PCP - General Internal Medicine 11/23/23 Kourtney Su, PharmD [address] [place] [address] Pharmacist Internal Medicine 12/05/23 Cecily Pinedo RN [address] [place] [address] Auditor InternalExternal Relations Manager 01/08/24 04/15/24 Cecily Pinedo RN [address] [place] [address] Auditor InternalExternal Relations Manager 04/29/24 [facility] 01/09/24 documented as of this encounter
--- OUTSIDE RECORDS SUMMARY | 2024-05-28 11:47 | XMS_ITS | Encounter Summary ---
Author Organization [email or web address] Address 75 [facility] 7t [place] [address] Care Team Providers Care Master Control Technician Name Role Phone Matilde Calabrese MD Primary Care Provide r Kourtney Su PharmD Unavailable [phone] Cecily Pinedo RN Unavailable [phone] Cecily Pinedo RN Unavailable [phone] Encounter Details Date Type Department Care Team ([facility] st Contact Info) Description 02/07/2024 Orders Only [facility] [address] [place] [address] Provider, MD Ari Social History Tobacco Use [...] Management [facility] [address] [place] [address] Kourtney Su, PharmD [address] [place] [address] 06/03/2024 11:30 AM EDT Office Visit [facility] MED [facility] PEDS [address] [place] [address] Rodger Cole MD [address] [place] [address] 06/23/2024 11:30 AM EDT Office Visit [facility] [address] [place] [address] Matilde Calabrese MD [address] [place] [address] documented as of this encounter Procedures Procedure [...] documented as of this encounter Care Teams Master Control Technician Relationship Specialty Start Date End Date Matilde Calabrese MD [address] [place] [address] PCP - General Internal Medicine 11/23/23 Kourtney Su, EmmaD [address] [place] [address] Pharmacist Internal Medicine 12/05/23 Cecily Pinedo RN 505 [place] [address] Manager CreditCompressor Station Engineer 01/08/24 04/15/24 Cecily Pinedo RN [address] [place] [address] Manager CreditCompressor Station Engineer 04/29/24 [facility] 01/09/24 documented as of this encounter
--- OUTSIDE RECORDS SUMMARY | 2024-05-28 11:48 | XMS_ITS | Encounter Summary ---
Author Organization [employer] Address 75 [facility] 7t [place] [address] Care Team Providers Care Telephone Interviewer Name Role Phone Matilde Calabrese MD Primary Care Provide r Kourtney Su PharmD Unavailable [phone] Cecily Pinedo RN Unavailable [phone] Reason for Visit * Reason Onset Date Comments Prior Authorization 05/26/2024 Encounter Details Date Type Department Care Team ([facility] st Contact Info) Description 05/26/2024 Telephone [facility] [address] [place], [place] [phone] Matilde Calabrese MD [address] [place] [address] Prior Authorization Social History Tobacco Use Types Packs/Day Years [...] the past 12 months, has t he [employer] gas, oil or water company threatened to [...] encounter Miscellaneous Notes * Telephone Encounter - Patricio Green - 05/27/2024 1:22 PM EDT Pt calling again regarding status of Pa for esomeprazole (NexIUM) 40 MG . States meds is the only thing that works for him * Telephone Encounter - Hattie Rg - 05/26/2024 11:47 AM EDT Tc from pt stating PA needed for esomeprazole (NexIUM) [address] capsule. documented in this encounter Plan of Treatment Upcoming Encounters Date Type Department Care Team (Late st Contact Info) Description 06/02/2024 10:30 AM EDT Medication Management [facility] [address] [place] [address] Kourtney Su, PharmD [address] [place] [address] 06/03/2024 11:30 AM EDT Office Visit [facility] CHC MED & PEDS [address] [place], [place] [phone] Rodger Cole MD [address] [place], [place] [phone] 06/23/2024 11:30 AM EDT Office Visit [facility] [address] [place] [address] Matilde Calabrese MD [address] [place] [address] documented as of this encounter Visit Diagnoses Not on filedocumented in this encounter Additional Health Concerns Assessment Noted Time PHQ-9 Depression Total Score: 18 024 9:55 AM EST documented as of this encounter Care Teams Telephone Interviewer Relationship Specialty Start Date End Date Matilde Calabrese MD [address] [place] [address] PCP - General Internal Medicine 11/23/23 Kourtney Su, EmmaD [address] [place] [address] Pharmacist Internal Medicine 12/05/23 Ceicly Pinedo RN [address] [place] [address] In Room Dining ServerCommercial Leasing Manager 04/29/24 [facility] 01/09/24 documented as of this encounter
--- OUTSIDE RECORDS SUMMARY | 2024-05-28 11:48 | XMS_ITS | Clinical Summary ---
Author Organization [facility] Address [address] [place] [address] Phone Care Team Providers Care Tape Control Skin Or Spar Mill Operator Name Role Phone Matilde Calabrese MD Primary Care Provide r Allergies Active Allergy Reactions Criticality Noted Date Comments Ibuprofen Renal Impairment 12/24/2023 Iodinated Contrast Media Renal Impairment 12/23 Medications amoxicillin-clavu lanate (Augmentin) 875-125 mg per tablet Take 1 tablet by mouth 2 (two) times a day. 20 tablet 03/11/19 25 Active omeprazole (PriLOSEC) [address] capsule Take 1 capsule (40 mg total) by mouth 1 (one) time each day for 14 days. Do not crush or chew. 14 each 05/03/19 25 025 Discontinued ondansetron ODT (ZOFRAN-ODT) 4 mg disintegrating tablet Let 1 tablet dissolve under the tongue three times daily as needed for nausea or vomiting. 10 tablet 05/03/19 25 025 esomeprazole (NexIUM) [address] capsule Take 1 capsule (40 mg total) by mouth 1 (one) time each day before breakfast for 14 days. Do not open capsule. 14 each 05/13/19 25 025 ondansetron (ZOFRAN) 4 mg tablet Take 1 tablet (4 mg total) by mouth every 8 (eight) hours if needed for nausea or vomiting for up to 7 days. 20 tablet 05/13/19 25 025 Active Problems Problem Noted Date Diagnosed Date Sleep apnea Encounters Date Type Department Care Team Description 05/12/2024 11:23 AM EDT - 05/13/2024 12:23 AM EDT [facility] Emergency [address] [place] [phone] Acute abdominal pain (Primary Dx); Generalized abdominal pain; Nausea and vomiting, unspecified vomiting type Discharge Disposition: Home or Self Care 05/02/2024 2:54 PM EDT - 05/02/2024 9:39 PM EDT [facility] Emergency [address] [place] [phone] Dariel Schmidt MD Vomiting and diarrhea (Primary Dx); Gastroesophageal reflux disease, unspecified whether esophagitis present Discharge Disposition: Home or Self Care 03/16/2024 12:17 PM EST - 03/16/2024 6:31 PM EST [facility] Emergency [address] [place] [phone] Eloise Garber DO Patel, Parth B, MD Acute nonintractable headache, unspecified headache type (Primary Dx) Discharge Disposition: Home or Self Care 03/11/2024 8:45 AM EST Office Visit Orthopedic Surgery - [place] [address] [facility] [address] [place] [phone] Elias Agee DPTed Cellulitis of left foot (Primary Dx); Dermatophytosis of nail; Ingrowing nail; Diabetic mononeuropathy simplex (CMS/HCC); Pain in toe of left foot; Pain in toe of right foot 03/09/2024 10:05 PM EST - 03/10/2024 1:10 AM EST [facility] Emergency [address] [place] [address] [phone] Ocular migraine (Primary Dx) Discharge Disposition: Home or Self Care 03/07/2024 9:30 AM EST Clinical Support General Surgery [facility] [address] [facility] [address] [place] [phone] Visit for suture removal (Primary Dx) from Last 3 Months Surgical History Surgery Date Site/Laterality Comments OTHER SURGICAL HISTORY 04/16/2023 Left PROCEDURE: NJ I&D BELOW FASCIA FOOT 1 BURSAL SPACE OTHER SURGICAL HISTORY 04/18/2023 Left PROCEDURE: [place] INCISION BONE CORTEX FOOT; COMMENT: left, distal hallux OTHER SURGICAL HISTORY 04/18/2023 PROCEDURE: [place] REPAIR INTERMEDIATE N/H/F/XTRNL GENT 2.5CM/< TOE SURGERY [...] age to complete this topic Meningococcal B Vaccine Aged Out No l onger eligible based on patient's age to complete [...] 9:41 AM EST Visit for suture removal from Last 3 Months Results * CT [...] or biliary obstruction. 2. Fatty liver. Telerad SHERI ([id number]) -------- FINAL REPORT -------- Dictated By: Edilma Camara Dictated Date: 05/12/2024 16:17 ET Assigned Physician: Edilma Camara Reviewed and Electronically Signed By: Edilma Camara Signed Date: 05/12/2024 16:19 ET Workstation ID: [id number] Transcribed By: Self Edit Transcribed Date: 05/12/2024 [...] cholelithiasis or biliary obstruction. 2. Fatty liver. Telelv WADE ([id number]) -------- FINAL REPORT -------- Dictated By: Edilma Camara Dictated Date: 05/12/2024 16:17 ET Assigned Physician: Edilma Camara Reviewed and Electronically Signed By: Edilma Camara Signed Date: 05/12/2024 16:19 ET Workstation ID: [id number] Transcribed By: Self Edit Transcribed Date: 05/12/2024 16:17 ET Rody WADE [facility] [place] PROCEDURES Final Result * (ABNORMAL) RBC morphology review (05/12/2024 9:45 AM EDT) Rbc Morphology Consistent with indices Consistent with indices, Normal for LAB HEMETOLOGY METHOD 05/12/2024 11:06 AM EDT [facility] Platelet Morphology - WAM See Note(A) Normal LAB HEMETOLOGY METHOD 05/12/2024 11:06 AM EDT [facility] Comment:PLT: Normal Blood Venous blood specimen / Unknown Venipuncture / Unknown 05/12/2024 9:45 AM EDT 05/12/2024 10:25 AM EDT us Dariel Schmidt MD LAB BLOOD ORDERABLES Aisha banda Result [facility] [address] [place] [address], [place] [phone] * (ABNORMAL) CBC auto differential (05/12/2024 9:45 AM EDT) Only the most recent of3 resultswithin the time period is included. WBC 15.7(H) 4.8 - 10.8 K/mcL LAB HEMETOLOGY METHOD 05/12/2024 11:06 AM [facility] RBC 4.40(L) 4.50 - 5.50 M/mcL LAB HEMETOLOGY METHOD 05/12/2024 11:06 AM [facility] Hemoglobin 13.5 13.5 - 17.5 g/dL LAB HEMETOLOGY METHOD 05/12/2024 11:06 AM [facility] Hematocrit 39.0(L) 42.0 - 54.0 % LAB HEMETOLOGY METHOD 05/12/2024 11:06 AM [facility] MCV 88.0 79.0 - 98.0 FL LAB HEMETOLOGY METHOD 05/12/2024 11:06 AM [facility] MCH 30.5 27.0 - 32.0 pcg LAB HEMETOLOGY METHOD 05/12/2024 11:06 AM [facility] MCHC 34.6 32.0 - 37.0 g/dL LAB HEMETOLOGY METHOD 05/12/2024 11:06 AM [facility] RDW 12.5 11.0 - 15.0 % LAB HEMETOLOGY METHOD 05/12/2024 11:06 AM [facility] Platelets 317 130 - 400 K/mcL LAB HEMETOLOGY METHOD 05/12/2024 11:06 AM [facility] MPV 10.3 7.0 - 11.0 FL LAB HEMETOLOGY METHOD 05/12/2024 11:06 AM [facility] NRBC 0.0 <1.0 % LAB HEMETOLOGY METHOD 05/12/2024 11:06 AM [facility] NRBC Absolute 0.00 <0.10 K/mcL LAB HEMETOLOGY METHOD 05/12/2024 11:06 AM [facility] Neutrophils Relative 46.7 % LAB HEMETOLOGY METHOD 05/12/2024 11:06 AM [facility] Comment:This is an appended report. These results have been appended to a previously preliminary verified report. Lymphocytes Relative 20.3 % LAB HEMETOLOGY METHOD 05/12/2024 11:06 AM [facility] Comment:This is an appended report. These results have been appended to a previously preliminary verified report. Monocytes Relative 5.4 % LAB HEMETOLOGY METHOD 05/12/2024 11:06 AM [facility] Comment:This is an appended report. These results have been appended to a previously preliminary verified report. Eosinophils Relative 26.3 % LAB HEMETOLOGY METHOD 05/12/2024 11:06 AM [facility] Comment:This is an appended report. These results have been appended to a previously preliminary verified report. Basophils Relative 1.0 % LAB HEMETOLOGY METHOD 05/12/2024 11:06 AM [facility] Comment:This is an appended report. These results have been appended to a previously preliminary verified report. Immature Granulocytes Relative 0.3 % LAB HEMETOLOGY METHOD 05/12/2024 11:06 AM [facility] Comment:This is an appended report. These results have been appended to a previously preliminary verified report. Neutrophils Absolute 7.30(H) 1.50 - 7.00 K/mcL LAB HEMETOLOGY METHOD 05/12/2024 11:06 AM EDT [facility] Comment:This is an appended report. These results have been appended to a previously preliminary verified report. Lymphocytes Absolute 3.17 1.00 - 5.00 K/mcL LAB HEMETOLOGY METHOD 05/12/2024 11:06 AM EDT [facility] Comment:This is an appended report. These results have been appended to a previously preliminary verified report. Monocytes Absolute 0.85 0.20 - 1.00 K/mcL [facility] 05/12/2024 11:06 AM EDT [facility] Comment:This is an appended report. These results have been appended to a previously preliminary verified report. Eosinophils Absolute 4.12(H) 0.00 - 0.50 K/mcL LAB [facility] 05/12/2024 11:06 AM EDT [facility] Comment:This is an appended report. These results have been appended to a previously preliminary verified report. Basophils Absolute 0.16 0.00 - 0.20 K/mcL LAB [facility] 05/12/2024 11:06 AM EDT [facility] Comment:This is an appended report. These results have been appended to a previously preliminary verified report. Immature Granulocytes Absolute 0.05(H) 0.00 - 0.03 K/[facility] LAB HEMETOLOGY METHOD 05/12/2024 11:06 AM T [facility] Comment:This is an appended report. These results have been appended to a previously preliminary verified report. Blood Venous blood specimen / Unknown Venipuncture / Unknown 05/12/2024 9:45 AM EDT 05/12/2024 10:25 AM EDT us Dariel Schmidt MD LAB BLOOD ORDERABLES Aisha solo Result [facility] [address] [place] [address], [place] [phone] * Lipase (05/12/2024 9:45 AM EDT) Only the most recent of3 resultswithin the time period is included. [facility] Lipase 33 13 - 75 unit/L LAB CHEMISTRY METHOD 05/12/2024 10:55 AM EDT [facility] Blood Venous blood specimen / Unknown Venipuncture / Unknown 05/12/2024 9:45 AM EDT 05/12/2024 10:25 AM EDT Dariel Schmidt MD LAB BLOOD ORDERABLES Aisha banda Result [facility] [address] [place] [address], [place] [phone] * (ABNORMAL) Comprehensive metabolic panel (05/12/2024 9:45 AM EDT) Only the most recent of3 resultswithin the time period is included. [facility] Sodium 136 133 - 145 mmol/L LAB CHEMISTRY METHOD 05/12/2024 10:56 AM [facility] Potassium 4.2 3.5 - 5.5 mmol/L LAB CHEMISTRY METHOD 05/12/2024 10:56 AM [facility] Chloride 104 96 - 110 mmol/L LAB CHEMISTRY METHOD 05/12/2024 10:56 AM [facility] CO2 27 21 - 32 mmol/L LAB CHEMISTRY METHOD 05/12/2024 10:56 AM [facility] Anion Gap 5 3 - 11 LAB CHEMISTRY METHOD 05/12/2024 10:56 AM [facility] Glucose 157(H) 70 - 100 mg/dL LAB CHEMISTRY METHOD 05/12/2024 10:56 AM [facility] BUN 14 5 - 25 mg/dL LAB CHEMISTRY METHOD 05/12/2024 10:56 AM [facility] Creatinine 0.98 0.70 - 1.30 mg/dL LAB CHEMISTRY METHOD 05/12/2024 10:56 AM [facility] eGFR 102 >=60 mL/min/1. 73m2 LAB CHEMISTRY METHOD 05/12/2024 10:56 AM [facility] Comment:Calculation based on the??Chronic Kidney Disease Epidemiology Collaboration (CKD-EPI) equation refit??without adjustment for race. BUN/Creatinine Ratio 14.3 LAB CHEMISTRY METHOD 05/12/2024 10:56 AM [facility] Calcium 9.3 8.5 - 10.5 mg/dL LAB CHEMISTRY METHOD 05/12/2024 10:56 AM [facility] AST (SGOT) 14 10 - 42 unit/L LAB CHEMISTRY METHOD 05/12/2024 10:56 AM [facility] ALT (SGPT) 20 10 - 60 unit/L LAB CHEMISTRY METHOD 05/12/2024 10:56 AM [facility] Alkaline Phosphatase 87 42 - 121 unit/L LAB CHEMISTRY METHOD 05/12/2024 10:56 AM [facility] Total Protein 7.9 6.0 - 8.0 g/dL LAB CHEMISTRY METHOD 05/12/2024 10:56 AM [facility] Albumin 4.1 3.2 - 5.0 g/dL LAB CHEMISTRY METHOD 05/12/2024 10:56 AM [facility] Total Bilirubin 0.5 0.0 - 1.4 mg/dL LAB CHEMISTRY METHOD 05/12/2024 10:56 AM [facility] Blood Venous blood specimen / Unknown Venipuncture / Unknown 05/12/2024 9:45 AM EDT 05/12/2024 10:25 AM EDT us Dariel Schmidt MD LAB BLOOD ORDERABLES Aisha l Result [facility] [address] [place] [address], [place] [phone] * Magnesium (05/02/2024 2:43 PM EDT) [facility] Magnesium 2.2 1.9 - 2.6 mg/dL LAB CHEMISTRY METHOD 05/02/2024 3:48 PM EDT [facility] Blood Venous blood specimen / Unknown Venipuncture / Unknown 05/02/2024 2:43 PM EDT 05/02/2024 3:16 PM EDT Dariel Schmidt MD LAB BLOOD ORDERABLES Aisha l Result [facility] [address] [place] [address], [place] [phone] * Respiratory virus panel molecular study (03/16/2024 2:28 PM EST) [facility] Adenovirus Detection by PCR Not Detected Not Detected LAB MICROBIOLOGY METHOD 03/16/2024 3:55 PM EST [facility] Influenza A PCR Not Detected Not Detected LAB MICROBIOLOGY METHOD 03/16/2024 3:55 PM EST [facility] Influenza B PCR Not Detected Not Detected LAB MICROBIOLOGY METHOD 03/16/2024 3:55 PM EST [facility] Coronavirus 229E Not Detected Not Detected LAB MICROBIOLOGY METHOD 03/16/2024 3:55 PM EST [facility] Coronavirus HKU1 Not Detected Not Detected LAB MICROBIOLOGY METHOD 03/16/2024 3:55 PM EST [facility] Coronavirus OC43 Not Detected Not Detected LAB MICROBIOLOGY METHOD 03/16/2024 3:55 PM EST [facility] Coronavirus NL63 Not Detected Not Detected LAB MICROBIOLOGY METHOD 03/16/2024 3:55 PM EST [facility] Parainfluenza Virus 1 Not Detected Not Detected LAB MICROBIOLOGY METHOD 03/16/2024 3:55 PM EST [facility] Parainfluenza Virus 2 Not Detected Not Detected LAB MICROBIOLOGY METHOD 03/16/2024 3:55 PM EST [facility] Parainfluenza Virus 3 Not Detected Not Detected LAB MICROBIOLOGY METHOD 03/16/2024 3:55 PM EST [facility] Parainfluenza Virus 4 Not Detected Not Detected LAB MICROBIOLOGY METHOD 03/16/2024 3:55 PM EST [facility] RSV PCR Not Detected Not Detected LAB MICROBIOLOGY METHOD 03/16/2024 3:55 PM EST [facility] Human Metapneumovirus A and B Not Detected Not Detected LAB MICROBIOLOGY METHOD 03/16/2024 3:55 PM EST [facility] Rhinovirus/Entero virus Not Detected Not Detected LAB MICROBIOLOGY METHOD 03/16/2024 3:55 PM [facility] Bordetella pertussis Not Detected Not Detected LAB MICROBIOLOGY METHOD 03/16/2024 3:55 PM EST [facility] Bordetella parapertussis Not Detected Not Detected LAB MICROBIOLOGY METHOD 03/16/2024 3:55 PM [facility] Mycoplasma pneumo by PCR Not Detected Not Detected LAB MICROBIOLOGY METHOD 03/16/2024 3:55 PM [facility] Chlamydia pneumoniae Not Detected Not Detected LAB MICROBIOLOGY METHOD 03/16/2024 3:55 PM [facility] SARS COV-2 Not Detected Not Detected LAB MICROBIOLOGY METHOD 03/16/2024 3:55 PM [facility] Swab Both anterior nares / Unknown Non-blood Collection / Unknown 03/16/2024 2:28 PM EST 03/16/2024 2:51 PM EST [facility] - 03/16/2024 3:55 PM EST Testing was performed using the 3LMe Respiratory Pathogen PCR Assay. All results must [...] MICROBIOLOGY - GEN ERAL ORDERABLES Final Result [facility] [address] [place] [address], * CT Head wo Contrast (03/16/2024 2:11 PM EST) Anatomical Region Laterality Modality Head and Neck Computed Tomogra phy 03/16/2024 2:30 PM EST Impressions 03/16/2024 2:32 PM EST Impression: 1. No significant intracranial abnormality identified. 2. Partial opacification of the mastoid air cells, likely infectious/inflammatory. Telerad SHERI ([id number]) -------- FINAL REPORT -------- Dictated By: Edilma Camara Dictated Date: 03/16/2024 14:30 ET Assigned Physician: Edilma Camara Reviewed and Electronically Signed By: Edilma Camara Signed Date: 03/16/2024 14:32 ET Workstation ID: [id number] Transcribed By: Self Edit Transcribed Date: 03/16/2024 14:30 ET Narrative 03/16/2024 2:32 PM EST History: Headache. Classic migraine. Comparison: No comparison imaging at this institution. Technique: Contiguous axial images were obtained at 2.5 mm intervals through the posterior fossa and at 5 mm intervals through the remainder of the head without intravenous contrast. DLP: 900.99 mGy/cm [employer] VCT Iterative reconstruction technique Findings: The ventricular [...] head without intravenous contrast. DLP: 900.99 mGy/cm [employer] VCT Iterative reconstruction technique Findings: The ventricular [...] the mastoid air cells, likelyinfectious/inflammatory. Telerad SHERI ([id number]) -------- FINAL REPORT -------- Dictated By: Edilma Camara Dictated Date: 03/16/2024 14:30 ET Assigned Physician: Edilma Camara Reviewed and Electronically Signed By: Edilma Camara Signed Date: 03/16/2024 14:32 ET Workstation ID: [id number] Transcribed By: Self Edit Transcribed Date: 03/16/2024 14:30 ET Rosa WADE IMJennifer CT PROCEDURES Aisha l Result * Lactate, with reflex (03/16/2024 10:42 AM EST) LACTIC ACID 1.1 0.4 - 2.0 mmol/L LAB CHEMISTRY METHOD 03/16/2024 11:42 AM EST [facility] Blood Venous blood specimen / Unknown Venipuncture / Unknown 03/16/2024 10:42 AM EST 03/16/2024 11:06 AM EST Eloise Marteny Jcarlos DO LAB BLOOD ORDERABLES Aisha l Result [facility] [address] [place] [address], [place] [phone] * (ABNORMAL) Thyroid stimulating hormone with reflex to free t4 and free t3 (TSH Reflex) (03/16/2024 10:42 AM EST) TSH 4.77(H) 0.40 - 4.00 mcIU/mL LAB CHEMISTRY METHOD 03/16/2024 2:53 PM EST [facility] Blood Venous blood specimen / Unknown Venipuncture / Unknown 03/16/2024 10:42 AM EST 03/16/2024 10:52 AM EST Rosa WADE LAB BLOOD ORDERABLES F inal Result Performing Organization Address [facility]/ZIP Co de Phone Number [facility] [address] [place] [address], [place] [phone] * Free thyroxine with reflex to free triiodothyronine (03/16/2024 10:42 AM EST) Free T4 1.29 0.70 - 1.80 ng/dL LAB CHEMISTRY METHOD 03/16/2024 3:21 PM EST [facility] Blood Venous blood specimen / Unknown Venipuncture / Unknown 03/16/2024 10:42 AM EST 03/16/2024 10:52 AM EST Rosa WADE LAB BLOOD ORDERABLES F inal Result Performing Organization Address City/[facility]/ZIP Co de Phone Number [facility] [address] [place] [address], [place] [phone] * Triiodothyronine free (03/16/2024 10:42 AM EST) T3, Free 328 230 - 420 pcg/dL LAB CHEMISTRY METHOD 03/16/2024 3:49 PM EST [facility] Blood Venous blood specimen / Unknown Venipuncture / Unknown 03/16/2024 10:42 AM EST 03/16/2024 10:52 AM EST Rosa WADE LAB BLOOD ORDERABLES F inal Result [facility] [address] [place] [address], * SUTURE REMOVAL (03/07/2024 9:41 AM EST) Narrative Jeanette Lraa MA - 03/07/2024 9:41 AM EST Jeanette Lara MA ? 03/07/2024 ??9:41 AM Suture Removal Date/Time: 03/07/2024 9:41 AM Performed by: Jeanette Lara MA Authorized by: Nic Nieto MD ?? Consent: ??Consent obtained: ??Verbal ??Consent given by: ??Patient ??Alternatives discussed: ??No treatment [place] protocol: ??Patient identity confirmed: ??Verbally with patient Location: ??Location: ??Head/neck ??Head/neck location: ??Neck Procedure details: ??Wound appearance: ??No signs of infection and good wound healing Post-procedure details: ??Post-removal: ??No dressing applied ??Procedure completion: ??Tolerated Nic Nieto MD IN CLINIC/BEDSIDE ORDERABLES Fi nal Result from Last 3 Months Insurance MEDICAID - [place] Care Teams Tape Control Skin Or Spar Mill Operator Relationship Specialty Start Date End Date Matilde Calabrese MD [address] [place] [phone] PCP - General 11/22/23
--- OUTSIDE RECORDS SUMMARY | 2024-05-28 11:48 | XMS_ITS | Encounter Summary ---
Author Organization [employer] Address [address] [place] [address] Care Team Providers Care Traffic Line Painter Name Role Phone Matilde Calabrese MD Primary Care Provide r Kourtney Su PharmD Unavailable [phone] Cecily Pinedo RN Unavailable [phone] Encounter Details Date Type Department Care Team (Late st Contact Info) Description 05/27/2024 Telephone [facility] [address] [place], [place] [phone] Matilde Calabrese MD [address] [place] [address] Social History Tobacco Use Types Packs/Day Years [...] Telephone Encounter - Cecily Pinedo RN - 05/27/2024 2:40 PM EDT Call to patient and patient informed of below. Advised he will be contacted with status of Rx once available. He verbalizes understanding. * Telephone Encounter - Cecily Pinedo RN - 05/27/2024 2:26 PM EDT Call placed to patient. Patient requesting status of PA for esomeprazole. Informed message was received and sent to appropriate team. Advised that the PA can take some time as this needs to be processed through the health insurance. Call to [facility] pharmacy. Confirmed with pharmacy that the esomeprazole does require a PA. Advised thatthe PA request was already sent to PCP's office. Also advised that this medication is by prescription only and cannot be purchased OTC. Per pharmacist, short supply cannot be provided to the patient as this is not something that they can do. documented in this encounter Plan of Treatment Upcoming Encounters Date Type Department Care Team (Late st Contact Info) Description 06/02/2024 10:30 AM EDT Medication Management [facility] [address] [place] [phone] Kourtney Su PharmD [address] [place] [address] 06/03/2024 11:30 AM EDT Office Visit [facility] [address] [place] [address] Rodger Cole MD [address] [place], [place] [phone] 06/23/2024 11:30 AM EDT Office Visit [facility] [address] [place] [phone] Matilde Calabrese MD [address] [place] [address] documented as of this encounter Visit Diagnoses Not on filedocumented in this encounter Additional Health Concerns Assessment Noted Time PHQ-9 Depression Total Score: 18 024 9:55 AM EST documented as of this encounter Care Teams Traffic Line Painter Relationship Specialty Start Date End Date Matilde Calabrese MD [address] [place] [phone] PCP - General Internal Medicine 11/23/23 Kourtney Su, PharmD [address] [place] [phone] Pharmacist Internal Medicine 12/05/23 Cecily Pinedo, ROSA [address] [place] [phone] Detail DrafterMarble Machine Operator 04/29/24 [facility] 01/09/24 documented as of this encounter
--- OUTSIDE RECORDS SUMMARY | 2024-05-28 11:48 | XMS_ITS | Encounter Summary ---
Author Organization [employer] Address [address] [facility] 7t [place] [address] Care Team Providers Care Statement Processor Name Role Phone Alexandre Sandoval MD Primary Care Prov ider Matilde Calabrese MD Primary Care Provide r Kourtney Su PharmD Unavailable [phone] Cecily Pinedo RN Unavailable [phone] Cecily Pinedo RN Unavailable [phone] Encounter Details Date Type Department Care Team (Late st Contact Info) Description 11/08/2023 Telephone [facility] [address] [place] [address] Marie Birmingham PharmD 230 [place] [address] Social History Tobacco Use Types Packs/Day Years [...] Please assist in obtaining discharge paperwork from [facility] Patient was discharged on 11/04/2023. Thank you documented in this encounter Plan of Treatment Upcoming Encounters Date Type Department Care Team (Late st Contact Info) Description 06/02/2024 10:30 AM EDT Medication Management [facility] [address] [place] [address] Kourtney Su, PharmD 230 [place] [address] 06/03/2024 11:30 AM EDT Office Visit [facility] [address] [place] [address] Rodger [place] MD 505 [place] [address] 06/23/2024 11:30 AM EDT Office Visit [facility] [address] [place] [address] Matilde Calabrese MD 230 [place] [address] documented as of this encounter Visit Diagnoses Not on filedocumented in this encounter Care Teams Statement Processor Relationship Specialty Start Date End Date Aleaxndre Sandoval MD 505 [place] [address] PCP - General Internal Medicine 07/20/19 11/22/23 Matilde Calabrese MD [address] [place] [address] PCP - General Internal Medicine 11/23/23 Kourtney Su, mEmaD [address] [place] [address] Pharmacist Internal Medicine 12/05/23 Cecily Pinedo RN 505 [place] [address] Lining FinisherBasket Patcher 01/08/24 04/15/24 Cecily Pinedo RN 505 [place] [address] Lining FinisherBasket Patcher 04/29/24 [facility] 01/09/24 documented as of this encounter
--- OUTSIDE RECORDS SUMMARY | 2024-05-28 11:48 | XMS_ITS | Encounter Summary ---
Author Organization [employer] Address [address] [facility] 7t [place] [address] Care Team Providers Care Spike Maker Name Role Phone Alexandre Sandoval MD Primary Care Prov ider Matilde Calabrese MD Primary Care Provide r Kourtney Su PharmD Unavailable [phone] Cecily Pinedo RN Unavailable [phone] Cecily Pinedo RN Unavailable [phone] Encounter Details Date Type Department Care Team ([facility] Contact Info) Description 07/18/[address] [facility] & PEDS [address] [place] [address] Belem Pedraza LPN Social History Tobacco Use [...] 06/02/2024 10:30 AM EDT Medication Management [facility]INE [address] [place], [place] [phone] Kourtney Su, PharmD 230 [place], [place] [phone] 06/03/2024 11:30 AM EDT Office Visit [facility] PEDS [address] [place] [address] Rodger Cole MD 505 [place] [address] 06/23/2024 11:30 AM EDT Office Visit [facility] MEDICINE [address] [place] [address] Matilde Calabrese MD 230 [place] [address] documented as of this encounter Visit Diagnoses Not on filedocumented in this encounter Care Teams Spike Maker Relationship Specialty Start Date End Date Alexandre Sandoval MD [address] [place] [address] PCP - General Internal Medicine 07/20/19 11/22/23 Matilde Calabrese MD [address] [place] [address] PCP - General Internal Medicine 11/23/23 Kourtney Su, EmmaD [address] [place] [address] Pharmacist Internal Medicine 12/05/23 Cecily Pinedo RN 505 [place] [address] Wireless Internet InstallerWardsperson 01/08/24 04/15/24 Cecily Pinedo RN 505 [place] [address] Wireless Internet InstallerWardsperson 04/29/24 [facility] 01/09/24 documented as of this encounter
--- OUTSIDE RECORDS SUMMARY | 2024-05-28 11:48 | XMS_ITS | Encounter Summary ---
Author Organization [email or web address] Address 75 [facility] 7t [place] [address] Care Team Providers Care Food Concession Manager Name Role Phone Matilde Calabrese MD Primary Care Provide r Kourtney Su PharmD Unavailable [phone] Cecily Pinedo RN Unavailable [phone] Reason for Visit * Reason Comments Care Coordination APPT REMINDER Encounter Details Date Type Department Care Team (Latest Contact Info) Description 05/27/2024 Patient Outreach [facility] [address] [place] [address] Matilde Calabrese MD 230 [place] [address] Care Coordination (APPT REMINDER) Social History Tobacco [...] encounter Progress Notes * Yue Eubanks - 05/27/2024 12:01 PM EDT CHW Yue Eubanks placed outbound call to patient. No answer at this time. LVM introducing herselffrom [facility] CM Department, reminding patient of appointment on 05/28/24 @ 1030AM at [facility]. Requested call back to or , as well as for any additional questions or concerns. documented in this encounter Plan of Treatment Upcoming Encounters Date Type Department Care Team (Late st Contact Info) Description 06/02/2024 10:30 AM EDT Medication Management [facility] [address] [place], [place] [phone] Kourtney Su, PharmD 230 [place] [address] 06/03/2024 11:30 AM EDT Office Visit [facility] MED [facility] PEDS 505 [place] [address] Rodger Cole MD 505 [place], [place] [phone] 06/23/2024 11:30 AM EDT Office Visit [facility] [address] [place] [address] Matilde Calabrese MD [address] [place] [address] documented as of this encounter Visit Diagnoses Not on filedocumented in this encounter Additional Health Concerns Assessment Noted Time PHQ-9 Depression Total Score: 18 024 9:55 AM EST documented as of this encounter Care Teams Food Concession Manager Relationship Specialty Start Date End Date Matilde Calabrese MD [address] [place] [address] PCP - General Internal Medicine 11/23/23 Kourtney Su PharmD [address] [place] [address] Pharmacist Internal Medicine 12/05/23 Cecily Pinedo, ROSA [address] [place] [address] RumperSenior Support Analyst 04/29/24 [facility] 01/09/24 documented as of this encounter
--- OUTSIDE RECORDS SUMMARY | 2024-05-28 11:48 | XMS_ITS | Encounter Summary ---
Author Organization [employer] Address 75 [facility] 7t [place] [address] Care Team Providers Care Sawyer Cork Slabs Name Role Phone Matilde Calabrese MD Primary Care Provide r Kourtney Su PharmD Unavailable [phone] Cecily Pinedo RN Unavailable [phone] Cecily Pinedo RN Unavailable [phone] Encounter Details Date Type Department Care Team ([facility] st Contact Info) Description 01/31/2024 Orders Only [facility] [address] [place] [address] Provider, MD Ari Social History Tobacco Use [...] 06/02/2024 10:30 AM EDT Medication Management [facility] MED[facility]INE [address] [place] [address] Kourtney Su, PharmD [address] [place] [address] 06/03/2024 11:30 AM EDT Office Visit [facility] CHC MED & PEDS 505 [place] [address] Rodger Cole MD 505 [place] [address] 06/23/2024 11:30 AM EDT Office Visit [facility]INE [address] [place] [address] Matilde Calabrese MD [address] [place] [address] documented as of this encounter Procedures Procedure [...] documented as of this encounter Care Teams Sawyer Cork Slabs Relationship Specialty Start Date End Date Matilde Calabrese MD 230 [place] [address] PCP - General Internal Medicine 11/23/23 Kourtney Su, EmmaD [address] [place] [address] Pharmacist Internal Medicine 12/05/23 Cecily Pinedo RN 505 [place] [address] Torpedo ShooterCity Auditor 01/08/24 04/15/24 Cecily Pinedo RN 505 [place] [address] Torpedo ShooterCity Auditor 04/29/24 [facility] 01/09/24 documented as of this encounter
--- OUTSIDE RECORDS SUMMARY | 2024-05-28 11:48 | XMS_ITS | Encounter Summary ---
Author Organization [employer] Address 75 [facility] 7t [place] [address] Care Team Providers Care Cutting And Splicing Supervisor Name Role Phone Matilde Calabrese MD Primary Care Provide r Kourtney Su PharmD Unavailable [phone] Cecily Pinedo RN Unavailable [phone] Cecily Pinedo RN Unavailable [phone] Reason for Visit * Reason Onset Date Comments Call Back Request 02/29/2024 Encounter Details Date Type Department Care Team (Late st Contact Info) Description 02/29/2024 Telephone [facility] [address] [place] [address] Matilde Calabrese MD 230 [place] [address] Call Back Request Social History Tobacco Use [...] Medication Management [facility] [address] [place] [address] Kourtney Su, PharmD [address] [place], [place] [phone] 06/03/2024 11:30 AM EDT Office Visit [facility] MED & PEDS 505 [place], [place] [phone] Rodger Cole MD 505 [place], [place] [phone] 06/23/2024 11:30 AM EDT Office Visit [facility] MED[facility]INE [address] [place] [address] Matilde Calabrese MD 230 [place] [address] documented as of this encounter Visit Diagnoses Not on filedocumented in this encounter Additional Health Concerns Assessment Noted Time PHQ-9 Depression Total Score: 18 024 9:55 AM EST documented as of this encounter Care Teams Cutting And Splicing Supervisor Relationship Specialty Start Date End Date Matilde Calabrese MD [address] [place] [address] PCP - General Internal Medicine 11/23/23 Kourtney Su, EmmaD [address] [place] [address] Pharmacist Internal Medicine 12/05/23 Cecily Pinedo RN 505 [place] [address] Human Services ManagerSpeech And Language Tutor 01/08/24 04/15/24 Cecily Pinedo RN 505 [place] [address] Human Services ManagerSpeech And Language Tutor 04/29/24 [facility] 01/09/24 documented as of this encounter
--- OUTSIDE RECORDS SUMMARY | 2024-05-28 11:48 | XMS_ITS | Encounter Summary ---
Author Organization [employer] Address 75 [facility] 7t [place] [address] Care Team Providers Care Reverse Logistics Analyst Name Role Phone Matilde Calabrese MD Primary Care Provide r Kourtney Su PharmD Unavailable [phone] Cecily Pinedo RN Unavailable [phone] Reason for Visit * Reason Comments Med Refill Encounter Details Date Type Department Care Team ([facility] st Contact Info) Description 05/01/2024 Refill [facility] [address] [place] [address] Matilde Calabrese MD [address] [place] [address] Social History Tobacco Use Types Packs/Day Years [...] the past 12 months, has t he [employer], gas, oil or water [employer] threatened to shut off services in your [...] Description 06/02/2024 10:30 AM EDT Medication Management [facility] MEDICINE [address] [place] [address] Kourtney Su, PharmD [address] [place] [address] 06/03/2024 11:30 AM EDT Office Visit [facility] CHC MED & PEDS 505 [place] [address] Rodger Cole MD 505 [place], [place] [phone] 06/23/2024 11:30 AM EDT Office Visit [facility] MEDICINE [address] [place] [address] Matilde Calabrese MD [address] [place] [address] documented as of this encounter Visit Diagnoses Not on filedocumented in this encounter Additional Health Concerns Assessment Noted Time PHQ-9 Depression Total Score: 18 024 9:55 AM EST documented as of this encounter Care Teams Reverse Logistics Analyst Relationship Specialty Start Date End Date Matilde Calabrese MD [address] [place] [address] PCP - General Internal Medicine 11/23/23 Kourtney Su PharmD [address] [place] [address] Pharmacist Internal Medicine 12/05/23 Cecily Pinedo, ROSA [address] [place] [address] Roll HandHam Sawyer 04/29/24 [facility] 01/09/24 documented as of this encounter
--- OUTSIDE RECORDS SUMMARY | 2024-05-28 11:48 | XMS_ITS | Encounter Summary ---
Author Organization [employer] Address 75 [facility] 7t [place] [address] Care Team Providers Care Assemblyman Or Woman Name Role Phone Matilde Calabrese MD Primary Care Provide r Kourtney Su PharmD Unavailable [phone] Cecily Pinedo RN Unavailable [phone] Cecily Pinedo RN Unavailable [phone] Encounter Details Date Type Department Care Team ([facility] st Contact Info) Description 11/23/2023 Orders Only [facility] CH[facility] MED & PEDS 505 [place], [place] [phone] Alexandre Sandoval MD 505 [place] [address] Type 2 diabetes mellitus with hyperglycemia, without long-term current use of insulin ([facility]) Social History Tobacco Use Types Packs/Day Years [...] Description 06/02/2024 10:30 AM EDT Medication Management [facility] MED[facility] [address] [place] [address] Kourtney Su PharmD [address] [place] [address] 06/03/2024 11:30 AM EDT Office Visit [facility] MED & PEDS [address] [place] [address] Rodger Cole MD [address] [place] [address] 06/23/2024 11:30 AM EDT Office Visit [facility] MED[facility] [address] [place] [address] Matilde Calabrese MD [address] [place] [address] documented as of this encounter Visit Diagnoses Diagnosis Type 2 diabetes mellitus with hyperglycemia, without long-term current use of insulin ([facility]) documented in this encounter Care Teams Assemblyman Or Woman Relationship Specialty Start Date End Date Matilde Calabrese MD [address] [place] [address] PCP - General Internal Medicine 11/23/23 Kourtney Su, PharmD 230 [place] [address] Pharmacist Internal Medicine 12/05/23 Cecily Pinedo, RN 505 [place] [address] Skilled Nursing Case ManagerPhotostatic Copy Maker 01/08/24 04/15/24 Cecily Pinedo RN [address] [place] [address] Skilled Nursing Case ManagerPhotostatic Copy Maker 04/29/24 [facility] 01/09/24 documented as of this encounter
--- OUTSIDE RECORDS SUMMARY | 2024-05-28 11:48 | XMS_ITS | Clinical Summary ---
Author Organization [employer] [facility] [employer] Address [address] [facility] [address] [facility] [address] [place] [address] Care Team Providers Care Waiter/Waitress Bar Name Role Phone Matilde Calabrese MD Primary Care Provide r Kourtney Su PharmD Unavailable [phone] Cecily Pinedo RN Unavailable [phone] Allergies Active Allergy Reactions Criticality Noted [...] morning. 1 kit 023 Active Continuous Glucose Diversity Manager (FreeStyle Cherelle 2 [place]) deviceIndication s:Type 2 diabetes mellitus with hyperglycemia, without long-term current use of insulin (CMS/[facility]ER[facility]) Scan sensor every 8 hours 1 each 024 Active glucose blood (FreeStyle Precision Jefry Test) test stripIndications :Type 2 diabetes mellitus with hyperglycemia, without long-term current use of insulin (CMS/HCC) Use to test blood sugar 3 times daily 100 each 12 024 2024 Active pen needle 32G x 4 mm miscIndications: Type 2 diabetes mellitus with hyperglycemia, with long-term current use of insulin (CMS/HCC) Use as instructed with insulin administration once daily 100 each 024 2024 Active UltiCare Alcohol Swabs 70 % padsIndications: Type 2 diabetes mellitus with hyperglycemia, with long-term current use of insulin (CMS/HCC) Use as directed with insulin administration once [...] hyperglycemia, with long-term current use of insulin ([facility]) Inject subcutaneously 18 units once daily 15 mL Active acetaminophen (Tylenol 8 Hour) 650 MG ER tablet Take 1 tablet (650 mg) by mouth every 8 (eight) hours if needed for mild pain. Do not crush, chew, or split. 50 tablet 1 025 2025 Active glucose 4 g chewable tabletIndication s:Type 2 diabetes mellitus with hyperglycemia, with long-term current use of insulin ([facility]) Use as directed for low blood sugar [...] hyperglycemia, with long-term current use of insulin ([facility]) Apply 1 sensor every 14 days 2 [...] hyperglycemia, with long-term current use of insulin ([facility]) Take 1 tablet by mouth once daily 90 tablet 3 Active amLODIPine (Norvasc) 10 MG tabletIndication s:Primary hypertension Take 1 tablet by mouth once daily 90 tablet 3 025 Active docusate sodium (Colace) 100 MG capsuleIndicatio ns:Constipation, unspecified constipation type TAKE 1 CAPSULE BY MOUTH TWICE DAILY 180 capsule 1 Active gabapentin (Neurontin) 600 MG tabletIndication s:Diabetic polyneuropathy associated with type 2 diabetes mellitus ([facility]) Take 1 tablet (600 mg) by mouth 3 times daily. 90 tablet 3 025 2025 Active empagliflozin (Jardiance) 10 MGIndications:Di abetic polyneuropathy associated with type 2 diabetes mellitus ([facility]) Take 1 tablet (10 mg) by mouth Once per day. 30 tablet 11 025 2025 Active carvedilol (Coreg) 12.5 MG tabletIndication s:Essential (primary) hypertension Take 1 tablet (12.5 mg) by mouth with breakfast and with evening meal. 60 tablet 11 025 2025 Active Dulaglutide (Trulicity) 3 MG/0.5ML solution auto-injectorInd ications:Type 2 diabetes mellitus with hyperglycemia, with long-term current use of insulin ([facility]) Inject 3 mg under the skin 1 (one) time per week. 2 mL Active esomeprazole (NexIUM) [address] capsuleIndicatio ns:Upper abdominal pain,Nausea and vomiting, unspecified vomiting type Take 1 capsule (40 mg) by mouth before breakfast. Do not open capsule. 30 capsule 11 025 2025 Active sucralfate (Carafate) 1 g tabletIndication s:Upper abdominal pain Take 1 tablet (1 g) by mouth before breakfast, before lunch, before evening meal, and at bedtime. 120 tablet 2 025 2025 Active FreeStyle lancetsIndicatio ns:Type 2 diabetes mellitus with hyperglycemia, with long-term current use of insulin (CMS/HCC) 1 each by Other route 4 times daily. 100 each 11 025 Active FreeStyle lancetsIndicatio ns:Type 2 diabetes mellitus with hyperglycemia, with long-term current use of insulin (CMS/HCC) 1 each by Other route 4 times daily. 100 each 11 024 2024 Discontinued(R eorder (will not trigger notification to Pharmacy)) omeprazole OTC (PriLOSEC OTC) 20 MG EC tablet Take 1 tablet (20 mg) by mouth before breakfast. Do not crush, chew, or split. 30 tablet 11 024 2024 Discontinued polyethylene glycol, PEG, 3350 (MiraLax) 17 GM/SCOOP powderIndication s:Constipation, unspecified constipation type Take 17 g by mouth Once per day. 527 g 1 025 2024 Active Problems Problem Noted Date [...] right sided headache as well. Seen at [facility] ER, intraocular pressure per ER report on right eye was normal. On today's exam pt has photophobia and painful extraocular movements on the right. No redness, mild tenderness to palpation right eye. Etiology ? Ocular migraine vs other etiologies Plan: Stat Orbital and head CT. CBC, ESR. Pt to be seen by our Web Marketing Analyst Dr. Gresham tomorrow at 3:45 PM Follow [...] (02/17/2024 5:00 PM EST): - Referral to [facility] Derm team placed 02/17/24 - Start [...] organization. Date Type Department Care Team Description 05/27/2024 Telephone [facility] MEDICINE [address] [place] [phone] Matilde Calabrese MD 05/27/2024 Patient Outreach [address] [address] Matilde Calabrese MD Care Coordination (APPT REMINDER) 05/26/[address] [address] Matilde Calabrese MD Prior Authorization 05/22/[address] [address] Matilde Calabrese MD 05/22/[address] [address] Matilde Calabrese MD Results 05/22/[address] [address] Matilde Calabrese MD Type 2 diabetes mellitus with hyperglycemia, with long-term current use of insulin ([facility]) 05/21/2024 Orders Only [address] [address] Matilde Calabrese MD Bilateral hip pain (Primary Dx) 05/19/2024 10:45 AM EDT Office Visit [address] [address] Matilde Calabrese MD Essential (primary) hypertension (Primary Dx); Upper abdominal pain; Nausea and vomiting, unspecified vomiting type; Bilateral hip pain 05/19/[address] [address] Matilde Calabrese MD Care Management (C3CM- f/u call) 05/19/2024 Travel 05/13/[address] [address] Matilde Calabrese MD Care Management (C3CM- f/u call) 05/12/[address] [address] Matilde Calabrese MD NTTS F/U 05/05/2024 Patient Outreach [facility] [place] [address] Matilde Calabrese MD Care Coordination (Appt reminder ) 05/02/2024 Telephone [facility] [place] [address] Matilde Calabrese MD 05/02/2024 Population Health Risk Score [facility] (C3) [address] [phone] Provider, Population Health Generic 05/01/2024 Refill [facility] [address] [facility] [place] [address] Matilde Calabrese MD 04/30/2024 Telephone [facility] [place] [address] Matilde Calabrese MD Care Management (C3- f/u call) 04/25/2024 Telephone [facility] [place] [address] Matilde Calabrese MD Durable Medical Equipment 04/24/2024 Telephone [facility] [place] [address] Matilde Calabrese MD Medication list 04/23/2024 Telephone [facility] [place] [address] Matilde Calabrese MD 04/23/2024 Travel 04/23/2024 Telephone [facility] [place] [address] Matilde Calabrese MD VNA orders 04/22/2024 1:00 PM EST Office Visit [facility] [place], [place] [phone] Matilde Calabrese MD Essential (primary) hypertension (Primary Dx); Diabetic polyneuropathy associated with type 2 diabetes mellitus (CMS/HCC); Venous insufficiency 04/22/2024 Travel 04/19/2024 Refill [facility] [place] [address] Matilde Calabrese MD Constipation, unspecified constipation type 04/17/2024 Telephone [facility] MEDICINE [address] [place] [address] Matilde Calabrese MD 04/16/[address] [address] Matilde Calabrese MD Care Management (C3CM- f/u call) 04/15/2024 Patient Outreach [facility] MED[facility]INE [address] [place] [address] Matilde Calabrese MD Care Coordination (Follow up) 04/15/[address] [address] Matilde Calabrese MD 04/10/2024 Patient Outreach [address] [address] Matilde Calabrese MD Care Coordination (Appt reminder) 04/09/[address] [address] Kourtney Su PharmD Durable Medical Equipment (DME: Compression Stockings) 04/09/2024 Orders Only [address] [address] Matilde Calabrese MD Bilateral carpal tunnel syndrome (Primary Dx) 04/09/2024 Travel 04/08/[address] [address] Matilde Calabrese MD Care Management (C3CM- f/u call) 04/08/[address] [address] Matilde Calabrese MD Error (VOID this visit) 04/01/[address] [address] Cecily Pinedo, RN Care Management (C3CM- f/u call) 03/26/[address] [address] Cecily Pinedo RN 03/21/2024 12:30 PM EST Office Visit [facility] MEDICINE [address] [place] [address] Randi Jiménez MD Ocular pain, right eye (Primary Dx); Type 2 diabetes mellitus with hyperglycemia, with long-term current use of insulin ([facility]/HCC); Dietary counseling; Exercise counseling; Class 3 severe obesity with serious comorbidity and body mass index (BMI) of 45.0 to 49.9 in adult, unspecified obesity type (CMS/HCC); Primary hypertension; Type 2 diabetes mellitus with hyperglycemia, without long-term current use of insulin (CMS/HCC); Acquired hypothyroidism; Hypertension, unspecified type; Right chronic serous otitis media 03/21/2024 Travel 03/21/2024 Telephone [facility] MEDICINE [address] [place] [address] Ileana Jones RN Results 03/19/[address] [address] Cecily Pinedo RN 03/19/2024 Patient Outreach [address] [address] Matilde Calabrese MD Care Coordination (SDOH) 03/19/[address] [address] Cecily Pinedo, ROSA Care Management (C3CM- f/u call) 03/17/2024 Patient Outreach [address] [address] Matilde Calabrese MD Transition Of Care (Tcm) 03/14/2024 Orders Only [facility] MEDICINE [address] [place] [address] Christian Muñoz MD 03/12/2024 3:45 PM EST Office Visit [facility] OPTOMETRY [address] [place] [address] Anisha Gresham, OD Ocular pain, right eye (Primary Dx); 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 (CMS/HCC); Intermittent exotropia, alternating 03/12/2024 Travel 03/12/[address] [address] Cecily Pinedo RN 03/11/2024 3:00 PM EST Office Visit [address] [address] Christian Muñoz MD Ocular pain, right eye; Acute intractable headache, unspecified headache type 03/11/[address] [address] Kourtney Su, PharmD 03/11/2024 Travel 03/11/2024 Patient Outreach [address] [address] Matilde Calabrese MD Transition Of Care (Tcm) 03/07/[address] [address] Cecily Pinedo, ROSA Care Coordination 03/07/[address] [address] Cecily Pinedo, ROSA Care Management (C3CM- f/u call) 03/06/2024 Patient Outreach [address] [address] Matilde Calabrese MD Care Coordination (SDOH/appt reminders) 03/03/2024 10:00 AM EST Office Visit [facility] [address] [place] [address] Charity Luna DO Right foot pain (Primary Dx) 02/29/[address] [phone] Matilde Calabrese MD Call Back Request 02/28/[address] [phone] Matilde Calabrese MD from Last 3 Months [...] Description 06/02/2024 10:30 AM EDT Medication Management [facility] MEDICINE [address] [place] [address] Kourtney Su, PharmD [address] [place] [address] 06/03/2024 11:30 AM EDT Office Visit [facility] [address] [place] [address] Rodger Cole MD [address] [place] [address] 06/23/2024 11:30 AM EDT Office Visit [facility] MEDICINE [address] [place] [phone] Matilde Calabrese MD [address] [place] [phone] Health Maintenance Due Date Last Done Comments [...] hyperglycemia, with long-term current use of insulin ([facility]) POCT GLUCOSE Routine 03/21/2024 12:35 PM EST Type 2 diabetes mellitus with hyperglycemia, with long-term current use of insulin ([facility]) CT ORBIT BI WO CONTRAST Routine 03/14/2024 10:[address] HEAD WO CONTRAST Routine 03/14/2024 1 0:02 AM EST Ocular pain, right eye Acute intractable headache, unspecified headache type FUNDUS PHOTOS - OU - BOTH EYES Routine 03/12/2024 3:45 PM EST 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 ?[place] [address] ?XRay Report ? Signed ? Patient: Anderson,Raji ?MR#: [id number] ? : 1985 ?Acct:[id number] ? Age/Sex: 38 / M ?ADM Date: 05/20/24 ? Loc: HO.HHCX ? Attending Dr: Matilde Hudson MD ? Ordering Physician: Matilde Calabrese MD ?? Date of Service: 05/20/24 ?? Procedure(s): XR hip RT min 2V ?? Accession Number(s): [id number] ? cc: Matilde Calabrese MD ? EXAMINATION: [...] DD/ 1014 ? TD/TT: 05/20/24 1020 ? Soldering Machine Operator Helper: ? Procedure Note Dongretchenter, Image - 05/20/2024 [facility] [address] [place] [address] XRay Report Signed Patient: Cedrick Anderson#: [id number] : 1985Acct:[id number] Age/Sex: 38 / MADM Date: 05/20/24 Loc: HO.HHCX Attending Dr: Matilde Hudson MD Ordering Physician: Matilde Calabrese MD Date of Service: 05/20/24 Procedure(s): XR hip RT min 2V Accession Number(s): [id number] cc: Matilde Calabrese MD EXAMINATION: XR HIP [...] 05/20/24 1103 DD/ 1014 TD/TT: 05/20/24 1020 Soldering Machine Operator Helper: us Matilde Hudson MD IMG XR PROCEDURES Fin al Result * XR Hip 2 or 3 Views Left (05/20/2024 10:14 AM EDT) Anatomical Region Laterality Modality Lower Extremities, Hip Left Radiograp hic Imaging 05/20/2024 10:1 4 AM EDT Narrative 05/20/2024 11:06 AM EDT ?[facility] [facility] ?[address] ?[place] [address] ?XRay Report ? Signed ? Patient: Anderson,Raji ?MR#: [id number] ? : 1985 ?Acct:[id number] ? Age/Sex: 38 / M ?ADM Date: 05/20/24 ? Loc: HO.HHCX ? Attending Dr: Matilde Hudson MD ? Ordering Physician: Matilde Calabrese MD ?? Date of Service: 05/20/24 ?? Procedure(s): XR hip LT min 2V ?? Accession Number(s): [id number] ? cc: Matilde Calabrese MD ? EXAMINATION: [...] DD/ 1014 ? TD/TT: 05/20/24 1020 ? Soldering Machine Operator Helper: ? Procedure Note Rich, Salima - 05/20/[address] [address] XRay Report Signed Patient: Cedrick Anderson#: [id number] : 1985Acct:[id number] Age/Sex: 38 / MADM Date: 05/20/24 Loc: HO.HHCX Attending Dr: Matilde Hudson MD Ordering Physician: Matilde Calabrese MD Date of Service: 05/20/24 Procedure(s): XR hip LT min 2V Accession Number(s): [id number] cc: Matilde Calabrese MD EXAMINATION: XR HIP [...] 05/20/24 1103 DD/ 1014 TD/TT: 05/20/24 1020 Soldering Machine Operator Helper: Matilde Hudson MD IMG XR PROCEDURES Fin [...] EST Narrative 03/14/2024 10:07 AM EST ? [facility] ?[address] ?[place], [place] [address] ? [address] Scan Report ? Signed ? Patient: Anderson,Raji ?MR#: [id number] ? : 1985 ?Acct:[id number] ? Age/Sex: 38 / M ?ADM Date: 03/14/24 ? Loc: HO.CT ? Attending Dr: Christian Shelton MD ? Ordering Physician: Christian Shelton MD ?? Date of Service: 03/14/24 ?? Procedure(s): CT orbit BI wo IV con ?? Accession Number(s): [id number] ? cc: Matilde Calabrese MD; Christian Shelton MD ? Report Number: ?? [id number]: Total DLP = ??121.00 mGy-cm ? CLINICAL [...] DD/ 1005 ? TD/TT: 03/14/24 1005 ? Soldering Machine Operator Helper: ? Procedure Note Rich, Salima - 03/14/2024 [facility] [address] [place] [address] CT Scan Report Signed Patient: Cedrick Anderson#: [id number] : 1985Acct:[id number] Age/Sex: 38 / MADM Date: 03/14/24 Loc: HO.CT Attending Dr: Christian Shelton MD Ordering Physician: Christian Sheltno MD Date of Service: 03/14/24 Procedure(s): CT orbit BI wo IV con Accession Number(s): [id number] cc: Matilde Calabrese MD; Christian Shelton MD Report Number: [id number]: Total DLP = 121.00 mGy-cm CLINICAL HISTORY: [...] 03/14/24 1006 DD/ 1005 TD/TT: 03/14/24 1005 Soldering Machine Operator Helper: us Christian Fuchs MD IMG CT PROCEDURES Fin al Result * CT Head w/o Contrast (03/14/2024 10:02 AM EST) Anatomical Region Laterality Modality Head, Neck Computed Tomogra phy 03/14/2024 10:0 2 AM EST Narrative 03/14/2024 10:04 AM EST ? [facility] ?[address] ?[place] [address] ? CT Scan Report ? Signed ? Patient: Anderson,Raji ?MR#: [id number] ? : 1985 ?Acct:[id number] ? Age/Sex: 38 / M ?ADM Date: 03/14/24 ? Loc: HO.CT ? Attending Dr: Christian Shelton MD ? Ordering Physician: Christian Shelton MD ?? Date of Service: 03/14/24 ?? Procedure(s): CT head/brain wo IV con ?? Accession Number(s): [id number] ? cc: Matilde Calabrese MD; Christian Shelton MD ? Report Number: ?? [id number]: Total DLP = 1059.00 mGy-cm ? CLINICAL [...] DD/ 1002 ? TD/TT: 03/14/24 1002 ? Soldering Machine Operator Helper: ? Procedure Note Salima Villanueva - 03/14/[address] [address] CT Scan Report Signed Patient: Cedrick Anderson#: [id number] : 1985Acct:[id number] Age/Sex: 38 / MADM Date: 03/14/24 Loc: HO.CT Attending Dr: Christian Shelton MD Ordering Physician: Christian Shelton MD Date of Service: 03/14/24 Procedure(s): CT head/brain wo IV con Accession Number(s): [id number] cc: Matilde Calabrese MD; Christian Shelton MD Report Number: [id number]: Total DLP = 1059.00 mGy-cm CLINICAL HISTORY: [...] 03/14/24 1004 DD/ 1002 TD/TT: 03/14/24 1002 Soldering Machine Operator Helper: us Christian Fuchs MD IMG CT PROCEDURES [...] Blood Count 9.5 4.8 - 10.8 X10*3/uL [facility] Red Blood Count 4.66 4.60 - 5.80 X10*6/uL [facility] Hemoglobin 13.9(L) 14.0 - 18.0 g/dl [facility] Hematocrit 40.0(L) 42.0 - 52.0 % [facility] Mean Corpuscular Volume 85.8 80.0 - 98.0 fL [facility] Mean Corpuscular Hemoglobin 29.8 27.0 - 33.0 pg [facility] Mean Corpuscular HGB Conc 34.8 31.0 - 36.0 g/dl [facility] Red Cell Distribution Width 12.3 11.0 - 16.0 % [facility] Platelet Count 326 160 - 400 X10*3/uL [facility] Mean Platelet Volume 10.4 9.4 - 12.4 fL [facility] Neutrophils Percent Auto 58.0 45 - 73 % [facility] Imm Gran Pct Auto 0.3 0.0 - 0.4 % [facility] Lymphocytes Percent Auto 30.5 20 - 40 % [facility] Monocytes Percent Auto 6.6 2 - 11 % [facility] Eosinophils Percent Auto 3.4 0 - 4 % [facility] Basophils Percent Auto 1.2 0 - 2 % [facility] NRBC Pct Auto 0.0 0.0 - 0.2 /100WBC [facility] Neutrophils Absolute Auto 5.5 2.0 - 8.3 x10*3/uL [facility] Imm Gran Abs Auto 0.03 0.00 - 0.03 X10*3/uL [facility] Lymphocytes Absolute Auto 2.9 1.2 - 4.9 X10*3/uL [facility] Monocytes Absolute Auto 0.6 0.1 - 1.2 X10*3/uL [facility] Eosinophils Absolute Auto 0.3 0.0 - 0.4 X10*3/uL [facility] Basophils Absolute Auto 0.1 0.0 - 0.2 X10*3/uL [facility] NRBC Abs Auto 0.000 0.0 - 0.012 X10*3/uL [facility] Blood Venous blood specimen / Unknown 03/12/2024 2:58 PM EST 03/12/2024 4:20 PM EST Christian Fuchs MD LAB BLOOD ORDERABLES Final Result Performing Organization Address [facility] Co de Phone Number [facility] [address] [place] [address] [phone] * (ABNORMAL) Sed Rate by Modified Juan Antonioergren (03/12/2024 2:58 PM EST) Erythrocyte Sedimentation Rate 34(H) 0 - 15 MM/HR [facility] Comment:Patients with polycy themia and many hemoglobin abnormalitiesmay have depressed sed rates whereas patients with anemiamay have elevated sed rates. Blood Venous blood specimen / Unknown 03/12/2024 2:58 PM EST 03/12/2024 4:20 PM EST Christian Fuchs MD LAB BLOOD ORDERABLES Final Result Performing Organization Address [facility]/ZIP Co de Phone Number [facility] [address] [place] [address] [phone] * (ABNORMAL) Basic Metabolic Panel (03/12/2024 2:58 PM EST) Pathologist [facility] Sodium 135 135 - 145 mmol/L [facility] Potassium 4.3 3.3 - 5.1 mmol/L [facility] Chloride 105 96 - 108 mmol/L [facility] Carbon Dioxide 25 22 - 29 mmol/L [facility] Anion Gap 9(L) 12 - 20 [facility] Urea Nitrogen (BUN) 13 9 - 16 mg/dL [facility] Creatinine, Serum 0.93 0.5 - 1.4 mg/dL [facility] Estimated Glomerular Filt Rate >60 [facility] Comment:Chronic Kidney Disea se: Estimated GFR < 60 mL/min/1.89v9Wxwtas Kidney Disease: Estimated GFR < 15 mL/min/1.73m2 Glucose 227(H) 60 - 115 mg/dL [facility] Calcium 9.6 8.4 - 10.2 mg/dL [facility] Blood Venous blood specimen / Unknown 03/12/2024 2:58 PM EST 03/12/2024 4:20 PM EST Christian Fuchs MD LAB BLOOD ORDERABLES Final Result Performing Organization Address City/State/[facility] Co de Phone Number [facility] [address] [place] [address] [phone] * XR Foot 3+ Views Right (03/03/2024 10:49 AM EST) Anatomical Region Laterality Modality Lower Extremities, Foot Right Radiogra phic Imaging 03/03/2024 10:4 9 AM EST Narrative 03/03/2024 11:09 AM EST ?[facility] ?[address] ?[place] [address] ?XRay Report ? Signed ? Patient: Anderson,Raji ?MR#: [id number] ? : 1985 ?Acct:[id number] ? Age/Sex: 38 / M ?ADM Date: 01/13/25 ? Loc: HO.HHCX ? Attending Heather Luna DO ? Ordering Physician: Charity Luna DO ?? Date of Service: 03/03/24 ?? Procedure(s): XR foot RT min 3V ?? Accession Number(s): [id number] ? cc: Alexandra Lunanifer Radha DO ? EXAMINATION: ??XR FOOT 3 OR [...] MD ? Signed By: ?<Electronically signed by Mesifn Olivo MD in OV> ?03/03/24 1106 ? DD/ 1049 ? TD/TT: 03/03/24 1058 ? Soldering Machine Operator Helper: ? Procedure Note Dongretchenter, Image - 03/03/2024 [place] [address] XRay Report Signed Patient: Cedrick Anderson#: [id number] : 1985Acct:[id number] Age/Sex: 38 / MADM Date: 03/03/24 Loc: HO.HHCX Attending Dr: Charity Luna DO Ordering Physician: Charity Luna DO Date of Service: 03/03/24 Procedure(s): XR foot RT min 3V Accession Number(s): [id number] cc: Charity Luna DO EXAMINATION: XR FOOT [...] 03/03/24 1106 DD/ 1049 TD/TT: 03/03/24 1058 Soldering Machine Operator Helper: us Charity Luna DO IMG XR PROCEDURES Edited Res ult - Final * Albumin, Random Urine W/Creatinine (02/18/2024 11:22 AM EST) Creatinine, Urine 209.68 mg/dL [facility] Microalbumin Urine 52.0 mg/L [facility] Microalbum Creatinine Ratio Ur 24.7 <30 ug/mg cr [facility] Comment:Albumin/Creatinine R atio Reference Ranges: Normal: < 30 ug/mg creatinine Microalbuminuria: 30 - 300 ug/mg creatinineClinical Albuminuria: > 300 ug/mg creatinine 02/18/2024 11:2 2 AM EST 02/18/2024 1:18 PM EST us Matilde Hudson MD LAB URINE ORDERABLES Final Result Performing Organization Address City/[facility]/ZIP Co de Phone Number [facility] [address] [place] [phone] * Hepatitis C Antibody with Reflex to HCV, RNA, Quantitative, Real-Time PCR (02/18/2024 9:45 AM EST) Hepatitis C Antibody Nonreactive Nonreactive [facility] Comment:Antibodies to HCV no t detected; does not exclude early acuteHCV infection. 02/18/2024 9:45 AM EST 02/18/2024 11:12 AM EST Generic External Data Provider LAB BLOOD ORDERAB LES Final Result Performing Organization Address [facility]/ZIP Co de Phone Number [facility] [address] [place] [phone] * (ABNORMAL) Lipid Panel, Standard (02/18/2024 9:45 AM EST) Triglycerides 319(H) <150 mg/dL [facility] Comment:Slight Lipemia.Aury able Triglyceride: less than 150 mg/dLBorderline High Triglyceride 150-199 mg/dLHigh Triglyceride: 200-499 mg/dLVery High Triglyceride: greater than or equal to 5OO mg/dL Cholesterol 176 <200 mg/dL [facility] Comment:Desirable Cholestero l: less than 200 mg/dLBorderline High Cholesterol: 200-239 mg/dLHigh Cholesterol: greater than 239 mg/dL LDL Cholesterol Calculated 75 <100 mg/dL [facility] Comment:Desirable LDL: less than 100 mg/dLNear Optimal/Above Optimal LDL: 110- 129 mg/dLBorderline High LDL: 130-159 mg/dLHigh LDL: 160-189 mg/dLVery High LDL: greater than or equal to 190 mg/dL HDL Cholesterol 38(L) >40 mg/dL [facility] Comment:Desirable HDL: great er than 40 mg/dL Note: This HDL assay may give artificially low results in patients with liver disease. 02/18/2024 9:45 AM EST 02/18/2024 11:12 AM EST us Matilde Hudson MD LAB BLOOD ORDERABLES Final Result [facility] [address] [place] [phone] from Last 3 Months or Most Recently Relevant to Health Maintenance Insurance [facility] C3 Care Teams Waiter/Waitress Bar Relationship Specialty Start Date End Date Matilde Calabrese MD [address] [place] [address] PCP - General Internal Medicine 11/23/23 Kourtney Su PharmD [address] [place] [address] Pharmacist Internal Medicine 12/05/23 Cecily Piendo RN [address] [place] [phone] ScalloperAgriculture Consultant 04/29/24 [facility] 01/09/24
== END 2024-05-28 10:25 | disposition home or self-care (01) ==
LOC: HO.US 10:24
PROVIDERS: PCP Internal Medicine; Visit Provider Physician Assistant Surgical
DX: I83.11 Varicose veins of right lower extremity with inflammation (principal); I83.12 Varicose veins of left lower extremity with inflammation
CPT/HCPCS: 93970

== ENCOUNTER → 2024-05-28 10:26 | Outpatient (BNV) | payer MEDICAID, SELFPAY | PROVIDERS: PCP Internal Medicine; Visit Provider Radiology Diagnostic Radiology | DX: I86.8 Varicose veins of other specified sites (principal) | CPT/HCPCS: 93970 ==

== ENCOUNTER 2024-06-12 09:45 | Outpatient (AMB) | payer MEDICAID, SELFPAY ==
--- NOTE | 2024-06-12 09:48 | A.OFFVIS_ITS ---
Vital Signs 06/12/24 09:50 Height 5 ft 8 in Weight 279 lb BMI 42.4 Intake Visit Reasons: Follow up 05/28 US Intake Note: follow up US 05/28/24 for LE swelling. Right LE worse than Left LE. Records Specialist Required: No Accompanied by: Self / Same As Patient Allergies ibuprofen Allergy (Intermediate, Verified 06/12/24 09:53) Unknown Iodinated Contrast Media Allergy (Intermediate, Verified 06/12/24 09:53) Unknown HPI HPI Follow up 05/28 US: Details: Raji is presenting today as a follow up to US, performed on 05/28/24. He states he has been losing weight, walking, and wearing compression socks. He states that he is noticing the swelling decreasing and he is overall feeling a little better. He has been working on his diet and better control of his blood sugars. 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, 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 Review of Systems Const Reports as per HPI and Denies weakness ENT Reports Normal hearing present and Denies dizziness Card Reports as per HPI, Denies chest pain, Denies chest pain at rest, Denies chest pain with activity, Denies dyspnea and Denies dyspnea on exertion Resp Reports as per HPI, Denies cough, Denies dyspnea and Denies dyspnea on exertion GI Reports as per HPI, Denies abdominal pain, Denies nausea and Denies vomiting Musc Denies numbness Skin/Breast Reports as per HPI, Denies erythema and Denies wounds Neuro Reports Normal hearing present, Denies dizziness, Denies numbness, Denies Sensory deficit (Neuro) and Denies weakness Psych Reports no additional complaints Endo Reports no additional complaints Physical Exam Vital Signs: BMI result Body Mass Index 42.4 Const General: healthy appearing and no acute distress Orientation/consciousness: patient oriented x3 HEENT Head: Yes normal to inspection Ears: hearing grossly normal bilaterally Mouth: Normal oral and palatal mucosa present Resp Effort & Inspection: normal respiratory effort and able to speak in complete sentences Auscultation: clear to auscultation bilaterally Cardio Jugular venous distension: no JVD Rate: regular rate Rhythm: regular rhythm Heart sounds: S1 normal heart sound present and S2 normal heart sound present Bruits: no abdominal aortic bruits, no carotid bruits, no femoral bruits and no renal bruits Peripheral pulses: Peripheral pulses 2+ throughout GI Inspection: Yes normal to inspection Palpation (GI): No Abdominal aortic bruit present Skin General skin exam: no rashes or lesions noted Wounds: no wounds Hair: normal Neuro General: patient oriented x3 Cranial nerves: Yes Normal hearing present Cognition (Neuro): normal cognition Gait exam (Neuro): Normal gait present Motor exam (neuro): 5/5 motor strength present throughout Sensory Exam: No Sensory deficit (Neuro) Extrem Other: Bilateral lower extremities: +1 peripheral edema noted. Discoloration noted on the feet. Palpable DP and PT pulses. No varicosities noted. General: Yes normal to inspection, Yes full ROM, Yes capillary refill normal and Yes normal gait Results Reviewed Results Reviewed: Brief summary of venous insufficiency testing is as follows: right great saphenous vein: negative right small saphenous vein: negative right accessory vein: none present left great saphenous vein: negative left small saphenous vein: negative left accessory vein: none present Please note there is no evidence of any venous aneurysms or significant tortuosity Assessment & Plan Assessment & Plan (1) Varicose veins of both lower extremities with inflammation: Code(s): I83.11 - Varicose veins of right lower extremity with inflammation; I83.12 - Varicose veins of left lower extremity with inflammation Category: Medical Plan: Raji is presenting today as a follow up to [facility], performed on 05/28/24. There was no insufficiency found on US. He states he has been using the compression socks daily, which he states is helping with the swelling. He has been eating healthier and trying physical activity. He states he is only able to walk for physical activity. He states he continues with numbness and tingling in his lower extremities/feet intermittently. We discussed the importance of continuing with compression socks, physical activity, and elevation. We discussed continued healthy/well balanced eating and blood sugar control. He has been doing well with that! We discussed that we will not need to follow up with him unless other vascular concerns arise. Thank you for allowing us to participate in the patient's care. If there are any questions or concerns, please do not hesitate to reach out to us. Coding Level of Care Code Est Pt Level 4 (04036) Diagnoses Varicose veins of both lower extremities with inflammation I83.11; I83.12 Comment review of US
[2024-06-12 09:50] VITALS: BMI 42.4
--- OUTSIDE RECORDS SUMMARY | 2024-06-12 10:52 | XMS_ITS | Encounter Summary ---
Author Organization [employer] Address [address] [facility] [address]t [place] [address] Care Team Providers Care Panama Hat Blocker Name Role Phone Alexandre Sandoval MD Primary Care Prov ider Matilde Calabrese MD Primary Care Provide r Kourtney Su PharmD Unavailable [phone] Cecily Pinedo RN Unavailable [phone] Cecily Pinedo RN Unavailable [phone] Encounter Details Date Type Department Care Team (Late st Contact Info) Description 11/08/2023 Telephone [facility] [address] [place], [place] [phone] Marie Birmingham PharmD [address] [place] [address] Social History Tobacco Use Types Packs/Day Years [...] Please assist in obtaining discharge paperwork from [facility] Patient was discharged on 11/04/2023. Thank you documented in this encounter Plan of Treatment Upcoming Encounters Date Type Department Care Team (Late st Contact Info) Description 06/23/2024 11:30 AM EDT Office Visit [facility] [address] [place] [phone] Matilde Calabrese MD [address] [place] [phone] 07/11/2024 11:00 AM EDT Medication Management [facility] [address] [place] [phone] Kourtney Su PharmD [address] [place] [address] documented as of this encounter Visit Diagnoses Not on filedocumented in this encounter Care Teams Panama Hat Blocker Relationship Specialty Start Date End Date Alexandre Sandoval MD [address] [place] [phone] PCP - General Internal Medicine 07/20/19 11/22/23 Matilde Calabrese MD [address] [place] [address] PCP - General Internal Medicine 11/23/23 Kourtney Su PharmD [address] [place] [address] Pharmacist Internal Medicine 12/05/23 Cecily Pinedo RN [address] [place] [address] Granulator Machine OperatorSales And Service Officer 01/08/24 04/15/24 Cecily Pinedo RN [address] [place] [address] Granulator Machine OperatorSales And Service Officer 04/29/24 [facility] 01/09/24 documented as of this encounter
--- OUTSIDE RECORDS SUMMARY | 2024-06-12 10:52 | XMS_ITS | Encounter Summary ---
Author Organization [employer] Address [address] [place] [address] 7t [place] [address] Care Team Providers Care Sec Reporting Consultant Name Role Phone Matilde Calabrese MD Primary Care Provide r Kourtney Su PharmD Unavailable [phone] Cecily Pinedo RN Unavailable [phone] Cecily Pinedo RN Unavailable [phone] Encounter Details Date Type Department Care Team (Late st Contact Info) Description 02/07/2024 Orders Only [facility] [address] [place] [address] Provider, MD Ari Social History Tobacco Use [...] Description 06/23/2024 11:30 AM EDT Office Visit [facility] [address] [place] [phone] Matilde Calabrese MD [address] [place] [phone] 07/11/2024 11:00 AM EDT Medication Management [facility] [address] [place] [phone] Kourtney Su, PharmD [address] [place] [address] documented as of this encounter Procedures Procedure [...] documented as of this encounter Care Teams Sec Reporting Consultant Relationship Specialty Start Date End Date Matilde Calabrese MD [address] [place] [address] PCP - General Internal Medicine 11/23/23 Kourtney Su PharmD [address] [place] [address] Pharmacist Internal Medicine 12/05/23 Cecily Pinedo RN [address] [place] [address] Pigs Feet FinisherTape Sewer 01/08/24 04/15/24 Cecily Pinedo RN [address] [place] [address] Pigs Feet FinisherTape Sewer 04/29/24 [facility] 01/09/24 documented as of this encounter
--- OUTSIDE RECORDS SUMMARY | 2024-06-12 10:52 | XMS_ITS | Encounter Summary ---
Author Organization [employer] Address [address] [facility] 7t [place] [address] Care Team Providers Care Torpedo Specialist Name Role Phone Matilde Calabrese MD Primary Care Provide r Kourtney Su PharmD Unavailable [phone] Cecily Pinedo RN Unavailable [phone] Reason for Visit * Reason Comments Med Refill Encounter Details Date Type Department Care Team (Late st Contact Info) Description 05/01/2024 Refill [facility] [address] [place] [address] Matilde Calabrese MD [address] [place] [address] Social History Tobacco Use Types Packs/Day Years [...] Description 06/23/2024 11:30 AM EDT Office Visit [facility] [address] [place] [phone] Matilde Calabrese MD [address] [place] [phone] 07/11/2024 11:00 AM EDT Medication Management [facility] [address] [place] [phone] Kourtney Su, PharmD [address] [place] [phone] documented as of this encounter Visit Diagnoses Not on filedocumented in this encounter Additional Health Concerns Assessment Noted Time PHQ-9 Depression Total Score: 18 024 9:55 AM EST documented as of this encounter Care Teams Torpedo Specialist Relationship Specialty Start Date End Date Matilde Calabrese MD [address] [place] [address] PCP - General Internal Medicine 11/23/23 Kourtney Su PharmD [address] [place] [phone] Pharmacist Internal Medicine 12/05/23 Cecily Pinedo RN [address] [place] [phone] Currency ExaminerBranding Machine Operator 04/29/24 [facility] 01/09/24 documented as of this encounter
--- OUTSIDE RECORDS SUMMARY | 2024-06-12 10:52 | XMS_ITS | Encounter Summary ---
Author Organization [employer] Address [address] [place] [address] 7t [place] [address] Care Team Providers Care Curing Oven Attendant Name Role Phone Matilde Calabrese MD Primary Care Provide r Kourtney Su PharmD Unavailable [phone] Cecily Pinedo RN Unavailable [phone] Cecily Pinedo RN Unavailable [phone] Encounter Details Date Type Department Care Team (Late st Contact Info) Description 01/31/2024 Orders Only [facility] [address] [place] [address] Provider, MD Ari Social History Tobacco Use [...] Description 06/23/2024 11:30 AM EDT Office Visit [facility] [address] [place] [phone] Matilde Calabrese MD [address] [place] [address] 07/11/2024 11:00 AM EDT Medication Management [facility] [address] [place] [phone] Kourtney Su, PharmD [address] [place] [phone] documented as of this encounter Procedures Procedure Name Priority Date/Time Associated Diagnosis Comments CT SOFT TISSUE NECK W CONTRAST Routine 01/31/2024 9:58 AM EST documented in this encounter Results * CT SOFT TISSUE NECK W CONTRAST (01/31/2024 9:58 AM EST) Anatomical Region Laterality Modality Computed Tomogra phy Historical Provider MD IMG CT PROCEDURES Final R esult documented in this encounter Visit Diagnoses Not on filedocumented in this encounter Additional Health Concerns Assessment Noted Time PHQ-9 Depression Total Score: 18 024 9:55 AM EST documented as of this encounter Care Teams Curing Oven Attendant Relationship Specialty Start Date End Date Matilde Calabrese MD [address] [place] [address] PCP - General Internal Medicine 11/23/23 Kourtney Su, Samara [address] [place] [address] Pharmacist Internal Medicine 12/05/23 Cecily Pinedo RN [address] [place] [address] Textile Screen MakerGas Cutting Machine Operator 01/08/24 04/15/24 Cecily Pinedo RN [address] [place] [address] Textile Screen MakerGas Cutting Machine Operator 04/29/24 [facility] 01/09/24 documented as of this encounter
--- OUTSIDE RECORDS SUMMARY | 2024-06-12 10:52 | XMS_ITS | Clinical Summary ---
Author Organization [employer] Address [address] [place] [address] Care Team Providers Care Title I Instructional Assistant Name Role Phone Matilde Calabrese MD Primary Care Provide r Kourtney Su PharmD Unavailable [phone] Cecily Pinedo RN Unavailable [phone] Allergies Active Allergy Reactions Criticality Noted [...] morning. 1 kit 023 Active Continuous Glucose Rail Car Loader (FreeStyle Cherelle 2 [place]) deviceIndication s:Type 2 diabetes mellitus with hyperglycemia, without long-term current use of insulin ([facility]) Scan sensor every 8 hours 1 each 024 Active glucose blood (FreeStyle Precision Jefry Test) test stripIndications :Type 2 diabetes mellitus with hyperglycemia, without long-term current use of insulin ([facility]) Use to test blood sugar 3 times daily 100 each 12 024 2024 Active pen needle 32G x 4 mm miscIndications: Type 2 diabetes mellitus with hyperglycemia, with long-term current use of insulin ([facility]) Use as instructed with insulin administration once daily 100 each 024 2024 Active UltiCare Alcohol Swabs 70 % padsIndications: Type 2 diabetes mellitus with hyperglycemia, with long-term current use of insulin ([facility]) Use as directed with insulin administration once daily 100 each 3 Active clindamycin (Clindagel) 1 % gelIndications:H idradenitis [...] hyperglycemia, with long-term current use of insulin ([facility]) Inject subcutaneously 18 units once [...] hyperglycemia, with long-term current use of insulin ([facility]) Use as directed for low [...] hyperglycemia, with long-term current use of insulin ([facility]) Apply 1 sensor every 14 [...] hyperglycemia, with long-term current use of insulin ([facility]) Take 1 tablet by mouth once daily 90 tablet 3 Active docusate sodium (Colace) 100 MG capsuleIndicatio ns:Constipation, unspecified constipation type TAKE 1 CAPSULE BY MOUTH TWICE DAILY 180 capsule 1 Active gabapentin (Neurontin) 600 MG tabletIndication s:Diabetic polyneuropathy associated with type 2 diabetes mellitus ([facility]) Take 1 tablet (600 mg) by mouth 3 times daily. 90 tablet 3 025 2025 Active empagliflozin (Jardiance) 10 MGIndications:Di abetic polyneuropathy associated with type 2 diabetes mellitus ([facility]) Take 1 tablet (10 mg) by mouth Once per day. 30 tablet 11 025 2025 Active carvedilol (Coreg) 12.5 MG tabletIndication s:Essential (primary) hypertension Take 1 tablet (12.5 mg) by mouth with breakfast and with evening meal. 60 tablet 11 025 2025 Active Dulaglutide (Trulicity) 3 MG/0.5ML solution auto-injectorInd ications:Type 2 diabetes mellitus with hyperglycemia, with long-term current use of insulin ([facility]) Inject 3 mg under the skin 1 (one) time per week. 2 mL 3 Active esomeprazole (NexIUM) [address] capsuleIndicatio [...] hyperglycemia, with long-term current use of insulin ([facility]) 1 each by Other route 4 times daily. 100 each 11 025 Active ketoconazole (NIZOral) 2 % shampooIndicatio ns:Dandruff in adult Apply topically 2 (two) times a week. 120 mL 3 025 Active FreeStyle lancetsIndicatio ns:Type 2 diabetes mellitus with hyperglycemia, with long-term current use of insulin ([facility]) 1 each by Other route 4 times daily. 100 each 11 024 2024 Discontinued(R eorder (will not trigger notification to Pharmacy)) omeprazole OTC (PriLOSEC OTC) 20 MG EC tablet Take 1 tablet (20 mg) by mouth before breakfast. Do not crush, chew, or split. 30 tablet 11 024 2024 Discontinued Blood Pressure Monitoring (Blood Pressure Cuff) miscIndications: Essential (primary) hypertension 1 each Once daily. 1 each 024 2024 Discontinued(M ed list cleanup (will not trigger notification to Pharmacy)) amLODIPine (Norvasc) 10 MG tabletIndication s:Primary hypertension Take 1 tablet by mouth once daily 90 tablet 3 025 2024 Discontinued(O ther) Active Problems Problem Noted Date Diagnosed Date [...] right sided headache as well. Seen at [facility] ER, intraocular pressure per ER report on right eye was normal. On today's exam pt has photophobia and painful extraocular movements on the right. No redness, mild tenderness to palpation right eye. Etiology ? Ocular migraine vs other etiologies Plan: Stat Orbital and head CT. CBC, ESR. Pt to be seen by our Director Of Conservation Dr. Gresham tomorrow at 3:45 PM Follow [...] (02/17/2024 5:00 PM EST): - Referral to [facility] Derm team placed 02/17/24 - Start topical [...] organization. Date Type Department Care Team Description 06/04/2024 Telephone [facility] MEDICINE [address] [place] [address] Matilde Calabrese MD Care Management (C3CM- f/u call) 06/03/2024 11:30 AM EDT Office Visit [facility] [address] [facility] [place] [facility] [place] [address] Rodger Cole MD Dandruff in adult (Primary Dx); Hidradenitis suppurativa of multiple sites 06/03/2024 Travel 06/02/2024 Travel 05/28/2024 Orders Only [facility] External Provider, [facility] 05/27/2024 Telephone [facility] [address] [place] [address] Matilde Calabrese MD 05/27/2024 Patient Outreach [address] [address] Matilde Calabrese MD Care Coordination (APPT REMINDER) 05/26/[address] [address] Matilde Calabrese MD Prior Authorization ( [place] Request: esomeprazole (NexIUM) 40 MG) 05/22/[address] [address] Matilde Calabrese MD 05/22/[address] [address] Matilde Calabrese MD Results 05/22/2024 Refill [facility]INE [address] [place] [phone] Matilde Calabrese MD Type 2 diabetes mellitus with hyperglycemia, with long-term current use of insulin ([facility]) 05/21/2024 Orders Only [facility] MED[facility]INE [address] [place] [phone] Matilde Calabrese MD Bilateral hip pain (Primary Dx) 05/19/2024 10:45 AM EDT Office Visit [facility] [address] [place] [phone] Matilde Calabrese MD Essential (primary) hypertension (Primary Dx); Upper abdominal pain; Nausea and vomiting, unspecified vomiting type; Bilateral hip pain 05/19/2024 Telephone [facility] MED[facility]INE [address] [place] [phone] Matilde Calabrese MD Care Management (C3CM- f/u call) 05/19/2024 Travel 05/13/[address] [address] Matilde Calabrese MD Care Management (C3- f/u call) 05/12/[address] [address] Matilde Calabrese MD NTTS F/U 05/05/2024 Patient Outreach [address] [address] Matilde Calabrese MD Care Coordination (Appt reminder ) 05/02/[address] [address] Matilde Calabrese MD 05/02/2024 Population Health Risk Score [facility] () Department [address] [place] [phone] Provider, Population Health Generic 05/01/2024 Refill [facility] [address] [place] [phone] Matilde Calabrese MD 04/30/[address] [address] Matilde Calabrese MD Care Management (C3- f/u call) 04/25/[address] [address] Matilde Calabrese MD Durable Medical Equipment 04/24/[address] [address] Matilde Calabrese MD Medication list 04/23/[address] [address] Matilde Calabrese MD 04/23/2024 Travel 04/23/[address] [address] Matilde Calabrese MD VNA orders 04/22/2024 1:00 PM EST Office Visit [address] [address] Matilde Calabrese MD Essential (primary) hypertension (Primary Dx); Diabetic polyneuropathy associated with type 2 diabetes mellitus (CMS/HCC); Venous insufficiency 04/22/2024 Travel 04/19/[address] [address] Matilde Calabrese MD Constipation, unspecified constipation type 04/17/[address] [address] Matilde Calabrese MD 04/16/[address] [address] Matilde Calabrese MD Care Management (C3CM- f/u call) 04/15/2024 Patient Outreach [address] [address] Matilde Calabrese MD Care Coordination (Follow up) 04/15/[address] [address] Matilde Calabrese MD 04/10/2024 Patient Outreach [address] [phone] Matilde Calabrese MD Care Coordination (Appt reminder) 04/09/[address] [address] Kourtney Su PharmD Durable Medical Equipment (DME: Compression Stockings) 04/09/2024 Orders Only [address] [address] Matilde Calabrese MD Bilateral carpal tunnel syndrome (Primary Dx) 04/09/2024 Travel 04/08/2024 Telephone [facility] MEDICINE [address] [place] [phone] Matilde Calabrese MD Care Management (C3CM- f/u call) 04/08/[address] [address] Matilde Calabrese MD Error (VOID this visit) 04/01/[address] [address] Cecily Pinedo, ROSA Care Management (C3CM- f/u call) 03/26/[address] [address] Cecily Pinedo RN 03/21/2024 12:30 PM EST Office Visit [address] [address] Randi Jiménez MD Ocular pain, right eye [...] serous otitis media 03/21/2024 Travel 03/21/[address] [address] Ileana Jones, RN Results 03/19/2024 Telephone [facility] MED[facility]INE [address] [place] [address] [phone] Cecily Pinedo, ROSA 03/19/2024 Patient Outreach [address] [address] Matilde Calabrese MD Care Coordination (SDOH) 03/19/[address] [phone] Cecily Pinedo RN Care Management (C3CM- f/u call) 03/17/2024 Patient Outreach [facility]INE [address] [facility] [place] [address] Matilde Calabrese MD Transition Of Care (Tcm) 03/14/2024 Orders Only [facility] [address] [facility] [place] [address] Christian Muñoz MD from Last 3 Months Immunizations Name [...] Sign Reading Time Taken Comments Blood Pressure 134/95 06/03/2024 11:23 AM EDT Pulse 86 06/03/2024 11:23 AM EDT Temperature 36.6 ??C (97.9 ??F) 06/03/2024 11:23 AM E DT Respiratory Rate 21 06/03/2024 11:23 AM EDT Oxygen Saturation 99% 06/03/2024 11:23 AM EDT Inhaled Oxygen Concentration - - Weight 123 kg (271 lb) 06/03/2024 11:23 AM EDT Height 162.6 cm (5' 4 ) 06/03/2024 11:23 AM EDT Body Mass Index 46.52 06/03/2024 11:23 AM EDT Plan of Treatment Upcoming Encounters Date Type Department Care Team (Late st Contact Info) Description 06/23/2024 11:30 AM EDT Office Visit [facility] MED[facility]INE [address] [place] [phone] Matilde Calabrese MD [address] [place] [phone] 07/11/2024 11:00 AM EDT Medication Management [facility] MED[facility]INE [address] [place] [address] [place] [address] Kourtney Su, PharmD [address] [place] [address] Health Maintenance Due Date Last Done Comments HIV Screening 1985 Family Planning (PISQ) 2001 COVID-19 Vaccine (2023- season) 2023 04/09/2020, 03/12/2020 Hepatitis B Vaccines (3 of 3 - 19+ 3-dose series) 06/04/2024 02/18/2024, 12/05/2023 Diabetes: Hemoglobin A1C 06/18/2024 025, 02/18/2024, 11/14/2023, Additional history exists Alcohol/Substance Use Screening 12/26/2024 12/27/2023 Depression Screening 12/26/2024 12/27/2023, 12/27/19 24 SDOH Screening 01/15/2025 01/16/2024 Diabetes: Urine Protein Screening 02/17/2025 02/18/2024, 07/25/2022, 01/09/2020 Lipid Panel 02/17/2025 02/18/2024, 01/09/2020 Diabetes: Foot Exam 03/03/2025 03/03/2024 Eye Exam 03/12/2025 03/12/2024, 02/20, 03/12/2024, Additional history exists Tobacco Screening 06/03/2025 06/03/2024 DTaP/Tdap/Td Vaccines (3 - Td or Tdap) [...] Procedure Name Priority Date/Time Associated Diagnosis Comments VASC US LOWER EXTREMITY VENOUS INSUFFICIENCY BILATERAL Routine 05/28/2024 10:52 AM EDT XR HIP 2 OR 3 VIEWS RIGHT Routine 05/20/2024 10:14 AM EDT Bilateral hip pain XR HIP 2 OR 3 VIEWS LEFT Routine 05/20/2024 10:14 AM EDT Bilateral hip pain POCT GLYCATED HEMOGLOBIN, TOTAL Routine 03/21/2024 12:35 PM EST Type 2 diabetes mellitus with hyperglycemia, with long-term current use of insulin (CMS/HCC) POCT GLUCOSE Routine 03/21/2024 12:35 PM EST Type 2 diabetes mellitus with hyperglycemia, with long-term current use of insulin (CMS/HCC) CT ORBIT BI WO CONTRAST Routine 03/14/2024 10:[address] HEAD WO CONTRAST Routine 03/14/2024 1 0:02 AM EST Ocular pain, right eye Acute intractable headache, unspecified headache type ALBUMIN, RANDOM URINE W/CREATININE Routine 02/18/2024 11:22 AM EST HEPATITIS C AB W/REFL TO HCV RNA, QN, PCR Routine 02/18/2024 9:45 AM EST LIPID PANEL, STANDARD Routine 02/18/2024 9:45 AM EST from Last 3 Months or Most Recently Relevant to Health Maintenance Results * VASC US Lower Extremity Venous Insufficiency Bilateral (05/28/2024 10:52 AM EDT) 05/28/2024 10:5 2 AM EDT Narrative [facility] IMAGING - 05/28/2024 12:26 PM EDT ? [facility] ?[address] ?[place] [address] ? Ultrasound Report ? Signed ? Patient: Anderson,Raji ?MR#: [id number] ? : 1985 ?Acct:[id number] ? Age/Sex: 38 / M ?ADM Date: 05/28/24 ? Loc: HO.US ? Attending Dr: Chante Oscar PA-C ? Ordering Physician: Chante Oscar PA-C ?? Date of Service: 05/28/24 ?? Procedure(s): US venous insuf bilat ?? Accession Number(s): [id number] ? cc: Matilde Calabrese MD; Chante Oscar PA-C ? EXAMINATION: ?? US LOWER EXTREMITY VENOUS (REFLUX EXAM), BILATERAL ? CLINICAL INFORMATION: ?? Varices. ? COMPARISON: ?? None. ? TECHNIQUE: ?? Color flow triplex imaging and compression Doppler was performed to ?? evaluate both the deep and the superficial systems bilaterally. To ?? evaluate the superficial system, the examination was performed in the ?? upright position. Color-flow Doppler ultrasound and compression ?? ultrasound were utilized. In addition, maneuvers were utilized to ?? demonstrate reflux. ? FINDINGS: ? 1. DEEP VENOUS ULTRASOUND OF THE RIGHT LOWER EXTREMITY: ?? Common Femoral Vein: Compressible, normal respiratory variation and ?? augmented flow. ? Femoral Vein: Compressible, normal color flow and augmentation. ?? Popliteal Vein: Compressible, normal augmentation. ? Deep Reflux: There is no evidence of reflux in the deep system in ?? either the common femoral vein, superficial femoral or the popliteal ?? vein. ? There is no evidence of a Fabian's cyst. ? 2. SUPERFICIAL ULTRASOUND WITH DOPPLER OF RIGHT LOWER EXTREMITY: ? GREAT SAPHENOUS VEIN: ?? Saphenofemoral Junction: 0.6 cm; Reflux: 0 ms ?? Proximal Thigh: 0.4 cm; Reflux: 0 ms ?? Mid Thigh: 0.3 cm; Reflux: 0 ms ?? Distal Thigh: 0.3 cm; Reflux: 0 ms ?? At Knee: 0.3 cm; Reflux: 0 ms ?? Proximal Calf: 0.2 cm; Reflux: 0 ms ?? Mid Calf: 0.1 cm; Reflux: 0 ms ?? Distal Calf: 0.1 cm; Reflux: 0 ms ? DUPLICATED MEDIAL GREAT SAPHENOUS VEIN: ?? Diameter: None imaged ?? Reflux: NA ? DUPLICATED LATERAL GREAT SAPHENOUS VEIN: ?? Diameter: None imaged ?? Reflux: NA ? SMALL SAPHENOUS VEIN: ?? Saphenopopliteal Junction: 0.1 cm; Reflux: 0 ms ?? Proximal: 0.1 cm; Reflux: 0 ms ?? Distal: 0.2 cm; Reflux: 0 ms ? VEIN OF GIACOMINI: ?? Size: 0.2 cm. ?? Reflux: NA ? PERFORATORS: ?? Location: Small saphenous vein mid segment. Proximal and mid calf. ?? Size: 0.2-0.3 cm. ?? Reflux: NA ? VARICOSITIES: ?? Location: None imaged. ?? Size: NA ?? Reflux: NA ? 3. DEEP VENOUS ULTRASOUND OF THE LEFT LOWER EXTREMITY: ?? Common Femoral Vein: Compressible, normal respiratory variation and ?? augmented flow. ? Femoral Vein: Compressible, normal color flow and augmentation. ?? Popliteal Vein: Compressible, normal augmentation. ? Deep Reflux: There is no evidence of reflux in the deep system in ?? either the common femoral vein, superficial femoral or the popliteal ?? vein. ? There is no evidence of a Fabian's cyst. ? 4. SUPERFICIAL ULTRASOUND WITH DOPPLER OF LEFT LOWER EXTREMITY: ? GREAT SAPHENOUS VEIN: ?? Saphenofemoral Junction: 0.8 cm; Reflux: 0 ms ?? Proximal Thigh: 0.3 cm; Reflux: 0 ms ?? Mid Thigh: 0.2 cm; Reflux: 0 ms ?? Distal Thigh: 0.3 cm; Reflux: 0 ms ?? At Knee: 0.2 cm; Reflux: 0 ms ?? Proximal Calf: 0.2 cm; Reflux: 0 ms ?? Mid Calf: 0.2 cm; Reflux: 0 ms ?? Distal Calf: 0.2 cm; Reflux: 0 ms ? DUPLICATED MEDIAL GREAT SAPHENOUS VEIN: ?? Diameter: None imaged ?? Reflux: NA ? DUPLICATED LATERAL GREAT SAPHENOUS VEIN: ?? Diameter: 0.3 cm. ?? Reflux: NA ? SMALL SAPHENOUS VEIN: ?? Saphenopopliteal Junction: 0.1 cm; Reflux: 0 ms ?? Proximal: 0.2 cm; Reflux: 0 ms ?? Distal: 0.2 cm; Reflux: 0 ms ? VEIN OF GIACOMINI: ?? Size: NA ?? Reflux: NA ? PERFORATORS: ?? Location: Small saphenous vein in the mid segment. Great saphenous vein ?? from the mid thigh to the distal calf. ?? Size: 0.1-0.2 cm. ?? Reflux: NA ? VARICOSITIES: ?? Location: None Imaged ?? Size: NA ?? Reflux: NA ? /US venous insuf bilat ?? IMPRESSION: ?? Right: No venous insufficiency. Perforators without reflux. ? Left: No venous insufficiency. Perforators without reflux. ? Electronically signed by: ??David Iyer MD ??05/28/2024 12:24 PM ?? EDT ? Dictated By: ?David Medina MD ? Signed By: ?<Electronically signed by David Monzon MD in OV> ? 05/28/24 1224 ? DD/ 1052 ? TD/TT: 05/28/24 1145 ? Undercoat Sprayer: ? Procedure Note Rich, Image - 05/28/[address] [address] Ultrasound Report Signed Patient: Cedrick Anderson#: [id number] : 1985Acct:[id number] Age/Sex: 38 / MADM Date: 05/28/24 Loc: HO. Attending Dr: Chante Oscar PA-C Ordering Physician: Chante Oscar PA-C Date of Service: 05/28/24 Procedure(s): US venous insuf bilat Accession Number(s): [id number] cc: Matilde Calabrese MD; Chante Oscar PA-C EXAMINATION: US LOWER EXTREMITY VENOUS (REFLUX EXAM), BILATERAL CLINICAL INFORMATION: Varices. COMPARISON: None. TECHNIQUE: Color flow triplex imaging and compression Doppler was performed to evaluate both the deep and the superficial systems bilaterally. To evaluate the superficial system, the examination was performed in the upright position. Color-flow Doppler ultrasound and compression ultrasound were utilized. In addition, maneuvers were utilized to demonstrate reflux. FINDINGS: 1. DEEP VENOUS ULTRASOUND OF THE RIGHT LOWER EXTREMITY: Common Femoral Vein: Compressible, normal respiratory variation and augmented flow. Femoral Vein: Compressible, normal color flow and augmentation. Popliteal Vein: Compressible, normal augmentation. Deep Reflux: There is no evidence of reflux in the deep system in either the common femoral vein, superficial femoral or the popliteal vein. There is no evidence of a Fabian's cyst. 2. SUPERFICIAL ULTRASOUND WITH DOPPLER OF RIGHT LOWER EXTREMITY: GREAT SAPHENOUS VEIN: Saphenofemoral Junction: 0.6 cm; Reflux: 0 ms Proximal Thigh: 0.4 cm; Reflux: 0 ms Mid Thigh: 0.3 cm; Reflux: 0 ms Distal Thigh: 0.3 cm; Reflux: 0 ms At Knee: 0.3 cm; Reflux: 0 ms Proximal Calf: 0.2 cm; Reflux: 0 ms Mid Calf: 0.1 cm; Reflux: 0 ms Distal Calf: 0.1 cm; Reflux: 0 ms DUPLICATED MEDIAL GREAT SAPHENOUS VEIN: Diameter: None imaged Reflux: NA DUPLICATED LATERAL GREAT SAPHENOUS VEIN: Diameter: None imaged Reflux: NA SMALL SAPHENOUS VEIN: Saphenopopliteal Junction: 0.1 cm; Reflux: 0 ms Proximal: 0.1 cm; Reflux: 0 ms Distal: 0.2 cm; Reflux: 0 ms VEIN OF GIACOMINI: Size: 0.2 cm. Reflux: NA PERFORATORS: Location: Small saphenous vein mid segment. Proximal and mid calf. Size: 0.2-0.3 cm. Reflux: NA VARICOSITIES: Location: None imaged. Size: NA Reflux: NA 3. DEEP VENOUS ULTRASOUND OF THE LEFT LOWER EXTREMITY: Common Femoral Vein: Compressible, normal respiratory variation and augmented flow. Femoral Vein: Compressible, normal color flow and augmentation. Popliteal Vein: Compressible, normal augmentation. Deep Reflux: There is no evidence of reflux in the deep system in either the common femoral vein, superficial femoral or the popliteal vein. There is no evidence of a Fabian's cyst. 4. SUPERFICIAL ULTRASOUND WITH DOPPLER OF LEFT LOWER EXTREMITY: GREAT SAPHENOUS VEIN: Saphenofemoral Junction: 0.8 cm; Reflux: 0 ms Proximal Thigh: 0.3 cm; Reflux: 0 ms Mid Thigh: 0.2 cm; Reflux: 0 ms Distal Thigh: 0.3 cm; Reflux: 0 ms At Knee: 0.2 cm; Reflux: 0 ms Proximal Calf: 0.2 cm; Reflux: 0 ms Mid Calf: 0.2 cm; Reflux: 0 ms Distal Calf: 0.2 cm; Reflux: 0 ms DUPLICATED MEDIAL GREAT SAPHENOUS VEIN: Diameter: None imaged Reflux: NA DUPLICATED LATERAL GREAT SAPHENOUS VEIN: Diameter: 0.3 cm. Reflux: NA SMALL SAPHENOUS VEIN: Saphenopopliteal Junction: 0.1 cm; Reflux: 0 ms Proximal: 0.2 cm; Reflux: 0 ms Distal: 0.2 cm; Reflux: 0 ms VEIN OF GIACOMINI: Size: NA Reflux: NA PERFORATORS: Location: Small saphenous vein in the mid segment. Great saphenous vein from the mid thigh to the distal calf. Size: 0.1-0.2 cm. Reflux: NA VARICOSITIES: Location: None Imaged Size: NA Reflux: NA US/US venous insuf bilat IMPRESSION: Right: No venous insufficiency. Perforators without reflux. Left: No venous insufficiency. Perforators without reflux. Electronically signed by: David Iyer MD 05/28/2024 12:24 PM EDT Dictated By: David Medina MD Signed By: <Electronically signed by David Monzon MDin OV> 05/28/24 1224 DD/ 1052 TD/TT: 05/28/24 1145 Undercoat Sprayer: us [facility] External Provider CV VASC ULAR PROCEDURES Final Result [facility] IMAG[facility] [address] [place] [address] * XR Hip 2 or 3 Views Right (05/20/2024 10:14 AM EDT) Anatomical Region Laterality Modality Lower Extremities, Hip Right Radiograp hic Imaging 05/20/2024 10:1 4 AM EDT Narrative 05/20/2024 11:06 AM EDT ?[facility] ?[address] ?[place] [address] ?XRay Report ? Signed ? Patient: Anderson,Raji ?MR#: [id number] ? : 1985 ?Acct:[id number] ? Age/Sex: 38 / M ?ADM Date: 05/20/24 ? Loc: HO.HHCX ? Attending Dr: Matilde Hudson MD ? Ordering Physician: Matilde Calabrese MD ?? Date of Service: 05/20/24 ?? Procedure(s): XR hip RT min 2V ?? Accession Number(s): [id number] ? cc: Matilde Calabrese MD ? EXAMINATION: [...] DD/ 1014 ? TD/TT: 05/20/24 1020 ? Undercoat Sprayer: ? Procedure Note Salima Villanuvea - 05/20/2024 [facility] [address] [place] [address] XRay Report Signed Patient: Cedrick Anderson#: [id number] : 1985Acct:[id number] Age/Sex: 38 / MADM Date: 05/20/24 Loc: HO.HHCX Attending Dr: Matilde Hudson MD Ordering Physician: Matilde Calabrese MD Date of Service: 05/20/24 Procedure(s): XR hip RT min 2V Accession Number(s): [id number] cc: Matilde Calabrese MD EXAMINATION: XR HIP [...] 05/20/24 1103 DD/ 1014 TD/TT: 05/20/24 1020 Undercoat Sprayer: us Matilde Hudson MD IMG XR PROCEDURES Fin al Result * XR Hip 2 or 3 Views Left (05/20/2024 10:14 AM EDT) Anatomical Region Laterality Modality Lower Extremities, Hip Left Radiograp hic Imaging 05/20/2024 10:1 4 AM EDT Narrative 05/20/2024 11:06 AM EDT ?[facility] ?[address] ?[place] [address] ?XRay Report ? Signed ? Patient: Anderson,Raji ?MR#: [id number] ? : 1985 ?Acct:[id number] ? Age/Sex: 38 / M ?ADM Date: 04/01/25 ? Loc: HO.HHCX ? Attending Dr: Matilde Hudson MD ? Ordering Physician: Matilde Calabrese MD ?? Date of Service: 05/20/24 ?? Procedure(s): XR hip LT min 2V ?? Accession Number(s): [id number] ? cc: Matilde Calabrese MD ? EXAMINATION: [...] DD/ 1014 ? TD/TT: 05/20/24 1020 ? Undercoat Sprayer: ? Procedure Note Rich, Image - 05/20/2024 [place] [address] XRay Report Signed Patient: Cedrick Anderson#: [id number] : 1985Acct:[id number] Age/Sex: 38 / MADM Date: 05/20/24 Loc: HO.HHCX Attending Dr: Matilde Hudson MD Ordering Physician: Matilde Calabrese MD Date of Service: 05/20/24 Procedure(s): XR hip LT min 2V Accession Number(s): [id number] cc: Matilde Calabrese MD EXAMINATION: XR HIP [...] 05/20/24 1103 DD/ 1014 TD/TT: 05/20/24 1020 Undercoat Sprayer: Matilde Hudson MD IMG XR PROCEDURES Fin [...] Media Lot # [id number] Lot# Expiration Date Blood Capillary blood specimen / Unknown 03/21/2024 12:35 PM EST Randi Jiménez MD POINT OF CARE TEST ENTER/EDIT ORDERABLES Final Result * CT ORBIT BI WO CONTRAST (03/14/2024 10:05 AM EST) Anatomical Region Laterality Modality Head, Neck Computed Tomogra phy 03/14/2024 10:0 5 AM EST Narrative 03/14/2024 10:07 AM EST ? [facility] ?[address] ?[place] [address] ? CT Scan Report ? Signed ? Patient: Anderson,Raji ?MR#: [id number] ? : 1985 ?Acct:[id number] ? Age/Sex: 38 / M ?ADM Date: 01/24/25 ? Loc: HO.CT ? Attending Dr: Christian Shelton MD ? Ordering Physician: Christian Shelton MD ?? Date of Service: 03/14/24 ?? Procedure(s): CT orbit BI wo IV con ?? Accession Number(s): [id number] ? cc: Matilde Calabrese MD; Christian Shelton MD ? Report Number: ?? [id number]: Total DLP = ??121.00 mGy-cm ? CLINICAL [...] DD/ 1005 ? TD/TT: 03/14/24 1005 ? Undercoat Sprayer: ? Procedure Note Salima Villanueva - 03/14/[address] [address] [address] Scan Report Signed Patient: Cedrick Anderson#: [id number] : 1985Acct:[id number] Age/Sex: 38 / MADM Date: 03/14/24 Loc: HO.CT Attending Dr: Christian Shelton MD Ordering Physician: Christian Shelton MD Date of Service: 03/14/24 Procedure(s): CT orbit BI wo IV con Accession Number(s): [id number] cc: Matilde Calabrese MD; Christian Shelton MD Report Number: [id number]: Total DLP = 121.00 mGy-cm CLINICAL HISTORY: [...] 03/14/24 1006 DD/ 1005 TD/TT: 03/14/24 1005 Undercoat Sprayer: us Christian Fuchs MD IMG CT PROCEDURES Fin al Result * CT Head w/o Contrast (03/14/2024 10:02 AM EST) Anatomical Region Laterality Modality Head, Neck Computed Tomogra phy 03/14/2024 10:0 2 AM EST Narrative 03/14/2024 10:04 AM EST ? [facility] ?[address] ?[place] [address] ? CT Scan Report ? Signed ? Patient: Anderson,Raji ?MR#: [id number] ? : 1985 ?Acct:[id number] ? Age/Sex: 38 / M ?ADM Date: 01/24/25 ? Loc: HO.CT ? Attending Dr: Christian Shelton MD ? Ordering Physician: Christian Shelton MD ?? Date of Service: 03/14/24 ?? Procedure(s): CT head/brain wo IV con ?? Accession Number(s): [id number] ? cc: Matilde Calabrese MD; Christian Shelton MD ? Report Number: ?? [id number]: Total DLP = 1059.00 mGy-cm ? CLINICAL [...] DD/ 1002 ? TD/TT: 03/14/24 1002 ? Undercoat Sprayer: ? Procedure Note Rich, Image - 03/14/[address] [place] [address] [address] Scan Report Signed Patient: Cedrick Anderson#: [id number] : 1985Acct:[id number] Age/Sex: 38 / MADM Date: 03/14/24 Loc: HO.CT Attending Dr: Christian Shelton MD Ordering Physician: Christian Shelton MD Date of Service: 03/14/24 Procedure(s): CT head/brain wo IV con Accession Number(s): [id number] cc: Matilde Calabrese MD; Christian Shelton MD Report Number: [id number]: Total DLP = 1059.00 mGy-cm CLINICAL HISTORY: [...] 03/14/24 1004 DD/ 1002 TD/TT: 03/14/24 1002 Undercoat Sprayer: us Christian Fuchs MD IMG CT PROCEDURES Fin al Result * Albumin, Random Urine W/Creatinine (02/18/2024 11:22 AM EST) Creatinine, Urine 209.68 mg/dL [facility] Microalbumin Urine 52.0 mg/L [facility] Microalbum Creatinine Ratio Ur 24.7 <30 ug/mg cr [facility] Comment:Albumin/Creatinine R atio Reference Ranges: Normal: < 30 ug/mg creatinine Microalbuminuria: 30 - 300 ug/mg creatinineClinical Albuminuria: > 300 ug/mg creatinine 02/18/2024 11:2 2 AM EST 02/18/2024 1:18 PM EST us Matilde Hudson MD LAB URINE ORDERABLES Final Result [facility] [address] [place] [phone] * Hepatitis C Antibody with Reflex to HCV, RNA, Quantitative, Real-Time PCR (02/18/2024 9:45 AM EST) Hepatitis C Antibody Nonreactive Nonreactive [facility] Comment:Antibodies to HCV no t detected; does not exclude early acuteHCV infection. 02/18/2024 9:45 AM EST 02/18/2024 11:12 AM EST us Generic External Data Provider LAB BLOOD ORDERAB LES Final Result Performing Organization Address [facility] Co de Phone Number [facility] [address] [place] [address] [phone] * (ABNORMAL) Lipid Panel, Standard (02/18/2024 9:45 AM EST) Triglycerides 319(H) <150 mg/dL [facility] Comment:Slight Lipemia.Aury able Triglyceride: less than 150 mg/dLBorderline High Triglyceride 150-199 mg/dLHigh Triglyceride: 200-499 mg/dLVery High Triglyceride: greater than or equal to 5OO mg/dL Cholesterol 176 <200 mg/dL [facility] Comment:Desirable Cholestero l: less than 200 mg/dLBorderline High Cholesterol: 200-239 mg/dLHigh Cholesterol: greater than 239 mg/dL LDL Cholesterol Calculated 75 <100 mg/dL [facility] Comment:Desirable LDL: less than 100 mg/dLNear Optimal/Above Optimal LDL: 110- 129 mg/dLBorderline High LDL: 130-159 mg/dLHigh LDL: 160-189 mg/dLVery High LDL: greater than or equal to 190 mg/dL HDL Cholesterol 38(L) >40 mg/dL [facility] Comment:Desirable HDL: great er than 40 mg/dL Note: This HDL assay may give artificially low results in patients with liver disease. 02/18/2024 9:45 AM EST 02/18/2024 11:12 AM EST us Matilde Hudson MD LAB BLOOD ORDERABLES Final Result Performing Organization Address [facility]/ZIP Co de Phone Number [facility] [address] [place] [phone] from Last 3 Months or Most Recently Relevant to Health Maintenance Insurance [facility] C3 Care Teams Title I Instructional Assistant Relationship Specialty Start Date End Date Matilde Calabrese MD [address] [place] [phone] PCP - General Internal Medicine 11/23/23 Kourtney Su PharmD [address] [place] [phone] Pharmacist Internal Medicine 12/05/23 Cecily Pinedo RN [address] [place] [phone] Log Processor OperatorThermodynamics Teacher 04/29/24 [facility] 01/09/24
--- OUTSIDE RECORDS SUMMARY | 2024-06-12 10:52 | XMS_ITS | Clinical Summary ---
Author Organization [facility] Address [address] [place] [address] Phone Care Team Providers Care Tactical Deception Plans Officer Name Role Phone Matilde Calabrese MD Primary Care Provide r Allergies Active Allergy Reactions Criticality Noted Date Comments Ibuprofen Renal Impairment 12/24/2023 Iodinated Contrast Media Renal Impairment 12/23 Medications amoxicillin-clavul anate (Augmentin) 875-125 mg per tablet Take 1 tablet by mouth 2 (two) times a day. 20 tablet 5 Active ondansetron ODT (ZOFRAN-ODT) 4 mg disintegrating tablet Let 1 tablet dissolve under the tongue three times daily as needed for nausea or vomiting. 20 tablet 5 Active esomeprazole (NexIUM) [address] capsule Take 1 capsule (40 mg total) by mouth 1 (one) time each day before breakfast for 14 days. Do not open capsule. 14 each 5 025 ondansetron (ZOFRAN) 4 mg tablet Take 1 tablet (4 mg total) by mouth every 8 (eight) hours if needed for nausea or vomiting for up to 7 days. 20 tablet 5 025 Active Problems Problem Noted Date Diagnosed Date Sleep apnea Encounters Date Type Department Care Team Description 06/05/2024 1:34 PM EDT - 06/05/2024 7:[address] [facility] Emergency [address] [place] [address] Gastritis, presence of bleeding unspecified, unspecified chronicity, unspecified gastritis type (Primary Dx); Nausea and vomiting, unspecified vomiting type Discharge Disposition: Home or Self Care 05/12/2024 11:23 AM EDT - 05/13/2024 12:23 AM EDT [facility] Emergency [address] [place] [address] Acute abdominal pain (Primary Dx); Generalized abdominal pain; Nausea and vomiting, unspecified vomiting type Discharge Disposition: Home or Self Care 05/02/2024 2:54 PM EDT - 05/02/2024 9:39 PM EDT [facility] Emergency [address] [place] [address] Dariel Schmidt MD Vomiting and diarrhea (Primary Dx); Gastroesophageal reflux disease, unspecified whether esophagitis present Discharge Disposition: Home or Self Care 03/16/2024 12:17 PM EST - 03/16/2024 6:31 PM EST [facility] Emergency [address] [place] [phone] Eloise Garber DO Patel, Parth B, MD Acute nonintractable headache, unspecified headache type (Primary Dx) Discharge Disposition: Home or Self Care from Last 3 Months Surgical History Surgery Date Site/Laterality Comments OTHER SURGICAL HISTORY 04/16/2023 Left PROCEDURE: WA I&D BELOW FASCIA FOOT 1 BURSAL SPACE OTHER SURGICAL HISTORY 04/18/2023 Left PROCEDURE: WA INCISION BONE CORTEX FOOT; COMMENT: left, distal hallux OTHER SURGICAL HISTORY 04/18/2023 PROCEDURE: WA REPAIR INTERMEDIATE N/H/F/XTRNL GENT 2.5CM/< TOE SURGERY Left Medical History Medical History Date Comments Diabetes mellitus (CMS/HCC V24, CMS/[facility] V28) Hypertension Disease of thyroid gland Sleep apnea [...] Sign Reading Time Taken Comments Blood Pressure 142/103 06/05/2024 3:18 PM EDT Pulse 77 06/05/2024 3:18 PM EDT Temperature 36.8 ??C (98.2 ??F) 06/05/2024 3:18 PM ED T Respiratory Rate 20 06/05/2024 3:18 PM EDT Oxygen Saturation 99% 06/05/2024 3:18 PM EDT Inhaled Oxygen Concentration - - Weight 122 kg (270 lb) 06/05/2024 1:25 PM EDT Height 172.7 cm (5' 8 ) 06/05/2024 1:25 PM EDT Body Mass Index 41.05 06/05/2024 1:25 PM EDT Plan of Treatment Health Maintenance [...] 03/12/2024 Diabetes: Annual GFR (Glomerular Filtration Rate) 06/05/2025 06/05/2024, 05/12/2024, 05/02/2024, Additional history exists Hypertension/CHF/CAD Annual BMP Blood Test 06/05/2025 06/05/2024, 05/12/2024, 05/02/2024, Additional history exists DTaP,Tdap,and Td Vaccines (3 [...] Procedure Name Priority Date/Time Associated Diagnosis Comments MENARD URINE CULTURE TUBE STAT 06/06/19 4:56 PM EDT URINALYSIS WITH REFLEX MICROSCOPIC AND CULTURE STAT 06/05/2024 4:56 PM EDT URINALYSIS WITH REFLEX MICROSCOPIC AND CULTURE STAT 06/05/2024 4:56 PM EDT CBC WITH AUTO DIFFERENTIAL STAT 06/05/2024 1:57 PM EDT LIPASE STAT 06/05/2024 1:57 PM EDT COMPREHENSIVE METABOLIC PANEL STAT 06/05/2024 1:57 PM EDT CBC AND DIFFERENTIAL STAT 06/05/2024 1:[address] ABDOMEN PELVIS WO CONTRAST STAT 05/12/2024 [...] AND DIFFERENTIAL STAT 03/16/2024 10:42 AM EST from Last 3 Months Results * (ABNORMAL) Urinalysis with reflex microscopic and culture (06/05/2024 4:56 PM EDT) Specific Apollo Urine 1.028 1.003 - 1.030 LAB URINALYSIS - AUTOMATED METHOD 06/05/2024 5:30 PM [facility] pH, Urine 7.5 5.0 - 8.0 pH LAB URINALYSIS - AUTOMATED METHOD 06/05/2024 5:30 PM [facility] Leukocytes, Urine Negative Negative LAB URINALYSIS - AUTOMATED METHOD 06/05/2024 5:30 PM [facility] Nitrite, Urine Negative Negative LAB URINALYSIS - AUTOMATED METHOD 06/05/2024 5:30 PM [facility] Protein, Urine Negative <=Trace mg/dL LAB URINALYSIS - AUTOMATED METHOD 06/05/2024 5:30 PM [facility] Glucose, Urine >=1000(A) Negative mg/dL LAB URINALYSIS - AUTOMATED METHOD 06/05/2024 5:30 PM [facility] Ketones, Urine Trace(A) Negative mg/dL LAB URINALYSIS - AUTOMATED METHOD 06/05/2024 5:30 PM [facility] Urobilinogen , Urine 1.0 0.2 - 1.0 mg/dL LAB URINALYSIS - AUTOMATED METHOD 06/05/2024 5:30 PM [facility] Bilirubin, Urine Negative Negative LAB URINALYSIS - AUTOMATED METHOD 06/05/2024 5:30 PM EDT [facility] Blood, Urine Negative Negative LAB URINALYSIS - AUTOMATED METHOD 06/05/2024 5:30 PM EDT [facility] Urine Urine specimen obtained by clean catch procedure / Unknown Non-blood Collection / Unknown 06/05/2024 4:56 PM EDT 06/05/2024 5:15 PM EDT Mari WADE LAB URINE ORDERABLES Final Result Performing Organization Address City/[facility]/ZIP Co de Phone Number [facility] [address] [place] [address], [place] [phone] * Menard urine culture tube (06/05/2024 4:56 PM EDT) Pathologist [facility] Extra Tube Hold for add-ons. 06/05/2024 7:01 PM EDT [facility] Comment:Auto resulted. Urine Urine specimen obtained by clean catch procedure / Unknown Non-blood Collection / Unknown 06/05/2024 4:56 PM EDT 06/05/2024 5:15 PM EDT Mari WADE LAB URINE ORDERABLES Final Result Performing Organization Address City/[facility]/ZIP Co de Phone Number [facility] [address] [place] [address], [place] [phone] * (ABNORMAL) CBC auto differential (06/05/2024 1:57 PM EDT) Only the most recent of4 resultswithin the time period is included. WBC 13.4(H) 4.8 - 10.8 K/[facility] LAB HEMETOLOGY METHOD 06/05/2024 2:53 PM EDT [facility] RBC 4.80 4.50 - 5.50 M/mcL LAB HEMETOLOGY METHOD 06/05/2024 2:53 PM EDT [facility] Hemoglobin 14.9 13.5 - 17.5 g/dL LAB HEMETOLOGY [facility] Hematocrit 40.9(L) 42.0 - 54.0 % LAB HEMETOLOGY METHOD 06/05/2024 2:53 PM EDT [facility] MCV 85.0 79.0 - 98.0 FL LAB HEMETOLOGY METHOD 06/05/2024 2:53 PM EDT [facility] MCH 31.0 27.0 - 32.0 pcg LAB HEMETOLOGY METHOD 06/05/2024 2:53 PM [facility] MCHC 36.4 32.0 - 37.0 g/dL LAB HEMETOLOGY METHOD 06/05/2024 2:53 PM [facility] RDW 12.6 11.0 - 15.0 % LAB HEMETOLOGY METHOD 06/05/2024 2:53 PM [facility] Platelets 383 130 - 400 K/mcL LAB HEMETOLOGY METHOD 06/05/2024 2:53 PM [facility] MPV 10.7 7.0 - 11.0 FL LAB HEMETOLOGY METHOD 06/05/2024 2:53 PM [facility] NRBC 0.0 <1.0 % LAB HEMETOLOGY METHOD 06/05/2024 2:53 PM [facility] NRBC Absolute 0.00 <0.10 K/mcL LAB HEMETOLOGY METHOD 06/05[facility]2024 2[facility] Neutrophils Relative 72.5 % LAB HEMETOLOGY METHOD 06/05/2024 2:53 PM [facility] Lymphocytes Relative 17.5 % LAB HEMETOLOGY METHOD 06/05/2024 2:53 PM EDT [facility] Monocytes Relative 5.7 % LAB HEMETOLOGY METHOD 06/05/2024 2:53 PM EDT [facility] Eosinophils Relative 3.3 % LAB HEMETOLOGY METHOD 06/05/2024 2:53 PM EDT [facility] Basophils Relative 0.7 % LAB HEMETOLOGY METHOD 06/05/2024 2:53 PM EDT [facility] Immature Granulocytes Relative 0.3 % LAB HEMETOLOGY METHOD 06/05/2024 2:53 PM EDT [facility] Neutrophils Absolute 9.73(H) 1.50 - 7.00 K/mcL LAB HEMETOLOGY METHOD 06/05/2024 2:53 PM EDT [facility] Lymphocytes Absolute 2.35 1.00 - 5.00 K/mcL LAB HEMETOLOGY METHOD 06/05/2024 2:53 PM EDT [facility] Monocytes Absolute 0.77 0.20 - 1.00 K/mcL LAB HEMETOLOGY METHOD 06/05/2024 2:53 PM EDT [facility] Eosinophils Absolute 0.44 0.00 - 0.50 K/mcL LAB HEMETOLOGY METHOD 06/05/2024 2:[facility] Basophils Absolute 0.10 0.00 - 0.20 K/mcL LAB HEMETOLOGY METHOD 06/05/2024 2:53 PM EDT [facility] Immature Granulocytes Absolute 0.04(H) 0.00 - 0.03 K/mcL LAB HEMETOLOGY METHOD 06/05/2024 2:53 PM [facility] Blood Venous blood specimen / Unknown Venipuncture / Unknown 06/05/2024 1:57 PM EDT 06/05/2024 2:44 PM EDT Jairo Forrester DO LAB BLOOD ORDERABLES Final Result [facility] [address] [place] [address], [place] [phone] * Lipase (06/05/2024 1:57 PM EDT) Only the most recent of4 resultswithin the time period is included. Lipase 28 13 - 75 unit/L LAB CHEMISTRY METHOD 06/05/2024 3:19 PM EDT [facility] Blood Venous blood specimen / Unknown Venipuncture / Unknown 06/05/2024 1:57 PM EDT 06/05/2024 2:44 PM EDT Jairo Forrester DO LAB BLOOD ORDERABLES Final Result Performing Organization Address [facility] de Phone Number [facility] [address] [place] [address], [place] [phone] * (ABNORMAL) Comprehensive metabolic panel (06/05/2024 1:57 PM EDT) Only the most recent of4 resultswithin the time period is included. Sodium 136 133 - 145 mmol/L LAB CHEMISTRY METHOD 06/05/2024 3:19 PM [facility] Potassium 3.9 3.5 - 5.5 mmol/L LAB CHEMISTRY METHOD 06/05/2024 3:19 PM [facility] Chloride 103 96 - 110 mmol/L LAB CHEMISTRY METHOD 06/05/2024 3:19 PM [facility] CO2 25 21 - 32 mmol/L LAB CHEMISTRY METHOD 06/05/2024 3:19 PM [facility] Anion Gap 8 3 - 11 LAB CHEMISTRY METHOD 06/05/2024 3:19 PM [facility] Glucose 128(H) 70 - 100 mg/dL LAB CHEMISTRY METHOD 06/05/2024 3:19 PM [facility] BUN 11 5 - 25 mg/dL LAB CHEMISTRY METHOD 06/05/2024 3:19 PM [facility] Creatinine 0.84 0.70 - 1.30 mg/dL LAB CHEMISTRY METHOD 06/05/2024 3:19 PM [facility] eGFR 115 >=60 mL/min/1. 73m2 LAB CHEMISTRY METHOD 06/05/2024 3:19 PM [facility] Comment:Calculation based on the??Chronic Kidney Disease Epidemiology Collaboration (CKD-EPI) equation refit??without adjustment for race. BUN/Creatinine Ratio 13.1 LAB CHEMISTRY METHOD 06/05/2024 3:19 PM [facility] Calcium 10.0 8.5 - 10.5 mg/dL LAB CHEMISTRY METHOD 06/05/2024 3:19 PM [facility] AST (SGOT) 19 10 - 42 unit/L LAB CHEMISTRY METHOD 06/05/2024 3:19 PM [facility] ALT (SGPT) 25 10 - 60 unit/L LAB CHEMISTRY METHOD 06/05/2024 3:19 PM [facility] Alkaline Phosphatase 104 42 - 121 unit/L LAB CHEMISTRY METHOD 06/05/2024 3:19 PM [facility] Total Protein 8.9(H) 6.0 - 8.0 g/dL LAB CHEMISTRY METHOD 06/05/2024 3:19 PM [facility] Albumin 4.6 3.2 - 5.0 g/dL LAB CHEMISTRY METHOD 06/05/2024 3:19 PM [facility] Total Bilirubin 0.7 0.0 - 1.4 mg/dL LAB CHEMISTRY METHOD 06/05/2024 3:19 PM [facility] Blood Venous blood specimen / Unknown Venipuncture / Unknown 06/05/2024 1:57 PM EDT 06/05/2024 2:44 PM EDT us Jairo Forrester DO LAB BLOOD ORDERABLES Final Result [facility] [address] [place] [address], * CT Abdomen Pelvis wo Contrast (05/12/2024 [...] biliary obstruction. 2. Fatty liver. Telerad SHERI ([id number]) -------- FINAL REPORT -------- Dictated By: Edilma Camara Dictated Date: 05/12/2024 16:17 ET Assigned Physician: Edilma Camara Reviewed and Electronically Signed By: Edilma Camara Signed Date: 05/12/2024 16:19 ET Workstation ID: [id number] Transcribed By: Self Edit Transcribed Date: 05/12/2024 [...] biliary obstruction. 2. Fatty liver. Telerad SHERI ([id number]) -------- FINAL REPORT -------- Dictated By: Edilma Camara Dictated Date: 05/12/2024 16:17 ET Assigned Physician: Edilma Camara Reviewed and Electronically Signed By: Edilma Camara Signed Date: 05/12/2024 16:19 ET Workstation ID: [id number] Transcribed By: Self Edit Transcribed Date: 05/12/2024 16:17 ET us Rody WADE IMG US PROCEDURES Final Result * (ABNORMAL) RBC morphology review (05/12/2024 9:45 AM EDT) Rbc Morphology Consistent with indices Consistent with indices, Normal for LAB HEMETOLOGY METHOD 05/12/2024 11:06 AM EDT [facility] Platelet Morphology - WAM See Note(A) Normal LAB HEMETOLOGY METHOD 05/12/2024 11:06 AM EDT [facility] Comment:PLT: Normal Blood Venous blood specimen / Unknown Venipuncture / Unknown 05/12/2024 9:45 AM EDT 05/12/2024 10:25 AM EDT Dariel Schmidt MD LAB BLOOD ORDERABLES Aisha banda Result [facility] [address] [place] [address], [place] [phone] * Magnesium (05/02/2024 2:43 PM EDT) [facility] Magnesium 2.2 1.9 - 2.6 mg/dL LAB CHEMISTRY METHOD 05/02/2024 3:48 PM EDT [facility] Blood Venous blood specimen / Unknown Venipuncture / Unknown 05/02/2024 2:43 PM EDT 05/02/2024 3:16 PM EDT Dariel Schmidt MD LAB BLOOD ORDERABLES Aisha banda Result [facility] [address] [place] [address], [place] [phone] * Respiratory virus panel molecular study (03/16/2024 2:28 PM EST) [facility] Adenovirus Detection by PCR Not Detected Not Detected LAB MICROBIOLOGY METHOD 03/16/2024 3:55 PM EST [facility] Influenza A PCR Not Detected Not Detected LAB MICROBIOLOGY METHOD 03/16/2024 3:55 PM EST [facility] Influenza B PCR Not Detected Not Detected LAB MICROBIOLOGY METHOD 03/16/2024 3:55 PM EST [facility] Coronavirus 229E Not Detected Not Detected LAB MICROBIOLOGY METHOD 03/16/2024 3:55 PM EST [facility] Coronavirus HKU1 Not Detected Not Detected LAB MICROBIOLOGY METHOD 03/16/2024 3:55 PM EST [facility] Coronavirus OC43 Not Detected Not Detected LAB MICROBIOLOGY METHOD 03/16/2024 3:55 PM EST [facility] Coronavirus NL63 Not Detected Not Detected LAB MICROBIOLOGY METHOD 03/16/2024 3:55 PM EST [facility] Parainfluenza Virus 1 Not Detected Not Detected LAB MICROBIOLOGY METHOD 03/16/2024 3:55 PM EST [facility] Parainfluenza Virus 2 Not Detected Not Detected LAB MICROBIOLOGY METHOD 03/16/2024 3:55 PM EST [facility] Parainfluenza Virus 3 Not Detected Not Detected LAB MICROBIOLOGY METHOD 03/16/2024 3:55 PM [facility] Parainfluenza Virus 4 Not Detected Not Detected LAB MICROBIOLOGY METHOD 03/16/2024 3:55 PM EST [facility] RSV PCR Not Detected Not Detected LAB MICROBIOLOGY METHOD 03/16/2024 3:55 PM EST [facility] Human Metapneumovirus A and B Not Detected Not Detected LAB MICROBIOLOGY METHOD 03/16/2024 3:55 PM EST [facility] Rhinovirus/Entero virus Not Detected Not Detected LAB MICROBIOLOGY METHOD 03/16/2024 3:55 PM [facility] Bordetella pertussis Not Detected Not Detected LAB MICROBIOLOGY METHOD 03/16/2024 3:55 PM [facility] Bordetella parapertussis Not Detected Not Detected LAB MICROBIOLOGY METHOD 03/16/2024 3:55 PM [facility] Mycoplasma pneumo by PCR Not Detected Not Detected LAB MICROBIOLOGY METHOD 03/16/2024 3:55 PM [facility] Chlamydia pneumoniae Not Detected Not Detected LAB MICROBIOLOGY METHOD 03/16/2024 3:55 PM [facility] SARS COV-2 Not Detected Not Detected LAB MICROBIOLOGY METHOD 03/16/2024 3:55 PM [facility] Swab Both anterior nares / Unknown Non-blood Collection / Unknown 03/16/2024 2:28 PM EST 03/16/2024 2:51 PM EST [facility] [place] [facility] - 03/16/2024 3:55 PM EST Testing was performed using the Dream Dinner[employer] Respiratory Pathogen PCR Assay. All results must [...] MICROBIOLOGY - GEN ERAL ORDERABLES Final Result [facility] [address] [place] [address], * CT Head wo Contrast (03/16/2024 2:11 PM EST) Anatomical Region Laterality Modality Head and Neck Computed Tomogra phy 03/16/2024 2:30 PM EST Impressions 03/16/2024 2:32 PM EST Impression: 1. No significant intracranial abnormality identified. 2. Partial opacification of the mastoid air cells, likely infectious/inflammatory. Telelv WADE ([id number]) -------- FINAL REPORT -------- Dictated By: Edilma Camara Dictated Date: 03/16/2024 14:30 ET Assigned Physician: Edilma Camara Reviewed and Electronically Signed By: Edilma Camara Signed Date: 03/16/2024 14:32 ET Workstation ID: [id number] Transcribed By: Self Edit Transcribed Date: 03/16/2024 14:30 ET Narrative 03/16/2024 2:32 PM EST History: Headache. Classic migraine. Comparison: No comparison imaging at this institution. Technique: Contiguous axial images were obtained at 2.5 mm intervals through the posterior fossa and at 5 mm intervals through the remainder of the head without intravenous contrast. DLP: 900.99 mGy/cm Vertra VCT Iterative reconstruction technique Findings: The ventricular [...] head without intravenous contrast. DLP: 900.99 mGy/cm [address] VCT Iterative reconstruction technique Findings: The ventricular [...] the mastoid air cells, likelyinfectious/inflammatory. Telerad SHERI ([id number]) -------- FINAL REPORT -------- Dictated By: Edilma Camara Dictated Date: 03/16/2024 14:30 ET Assigned Physician: Edilma Camara Reviewed and Electronically Signed By: Edilma Camara Signed Date: 03/16/2024 14:32 ET Workstation ID: [id number] Transcribed By: Self Edit Transcribed Date: 03/16/2024 14:30 ET [address] W[address] IMG CT PROCEDURES Aisha l Result * Lactate, with reflex (03/16/2024 10:42 AM EST) LACTIC ACID 1.1 0.4 - 2.0 mmol/L LAB CHEMISTRY METHOD 03/16/2024 11:42 AM EST [facility] Blood Venous blood specimen / Unknown Venipuncture / Unknown 03/16/2024 10:42 AM EST 03/16/2024 11:06 AM EST Eloise Mendez Ranulfo Garber DO LAB BLOOD ORDERABLES Aisha l Result [facility] [address] [place] [address], [place] [phone] * (ABNORMAL) Thyroid stimulating hormone with reflex to free t4 and free t3 (TSH Reflex) (03/16/2024 10:42 AM EST) TSH 4.77(H) 0.40 - 4.00 mcIU/mL LAB CHEMISTRY METHOD 03/16/2024 2:53 PM EST [facility] Blood Venous blood specimen / Unknown Venipuncture / Unknown 03/16/2024 10:42 AM EST 03/16/2024 10:52 AM EST Rosa WADE LAB BLOOD ORDERABLES F inal Result Performing Organization Address City/[facility]/ZIP Co de Phone Number [facility] [address] [place] [address], [place] [phone] * Free thyroxine with reflex to free triiodothyronine (03/16/2024 10:42 AM EST) Free T4 1.29 0.70 - 1.80 ng/dL LAB CHEMISTRY METHOD 03/16/2024 3:21 PM EST [facility] Blood Venous blood specimen / Unknown Venipuncture / Unknown 03/16/2024 10:42 AM EST 03/16/2024 10:52 AM EST Rosa WADE LAB BLOOD ORDERABLES F inal Result [facility] [address] [place] [address], [place] [phone] * Triiodothyronine free (03/16/2024 10:42 AM EST) T3, Free 328 230 - 420 pcg/dL LAB CHEMISTRY METHOD 03/16/2024 3:49 PM EST [facility] Blood Venous blood specimen / Unknown Venipuncture / Unknown 03/16/2024 10:42 AM EST 03/16/2024 10:52 AM EST us Rosa WADE LAB BLOOD ORDERABLES F inal Result [facility] [address] [place] [address], from Last 3 Months Insurance MEDICAID - [place] Care Teams Tactical Deception Plans Officer Relationship Specialty Start Date End Date Matilde Calabrese MD [address] [phone] PCP - General 11/22/23
--- OUTSIDE RECORDS SUMMARY | 2024-06-12 10:52 | XMS_ITS | Encounter Summary ---
Author Organization [employer] Address [address] [place] [address] Care Team Providers Care Yard Pilot Name Role Phone Matilde Calabrese MD Primary Care Provide r Kourtney Su PharmD Unavailable [phone] Cecily Pinedo RN Unavailable [phone] Cecily Pinedo RN Unavailable [phone] Encounter Details Date Type Department Care Team (Late st Contact Info) Description 11/23/2023 Orders Only [facility] [address] [place] [address] BradshawAlexandre Mccurdy MD [address] [place] [address] Type 2 diabetes mellitus with hyperglycemia, without long-term current use of insulin ([facility]) Social History Tobacco Use [...] Description 06/23/2024 11:30 AM EDT Office Visit [facility] [address] [place] [phone] Matilde Calabrese MD [address] [place] [phone] 07/11/2024 11:00 AM EDT Medication Management [facility] [address] [place] [phone] Kourtney Su PharmD [address] [place] [phone] documented as of this encounter Visit Diagnoses Diagnosis Type 2 diabetes mellitus with hyperglycemia, without long-term current use of insulin ([facility]) documented in this encounter Care Teams Yard Pilot Relationship Specialty Start Date End Date Matilde Calabrese MD [address] [place] [phone] PCP - General Internal Medicine 11/23/23 Kourtney Su PharmD [address] [place] [phone] Pharmacist Internal Medicine 12/05/23 Cecily Pinedo RN [address] [place] [phone] Entry Level Machine OperatorMedical Safety Director 01/08/24 04/15/24 Cecily Pinedo RN [address] [place] [address] Entry Level Machine OperatorMedical Safety Director 04/29/24 [facility] 01/09/24 documented as of this encounter
--- OUTSIDE RECORDS SUMMARY | 2024-06-12 10:52 | XMS_ITS | Encounter Summary ---
Author Organization [employer] Address [address] [place] [address] 7[address] [place] [address] Care Team Providers Care Cobol Programmer Name Role Phone Alexandre Sandoval MD Primary Care Prov ider Matilde Calabrese MD Primary Care Provide r Kourtney Su PharmD Unavailable [phone] Cecily Pinedo RN Unavailable [phone] Cecily Pinedo RN Unavailable [phone] Reason for Visit * Reason Comments Med Change Request Encounter Details Date Type Department Care Team (Late st Contact Info) Description 05/23/2022 Refill [facility] PEDS [address] [place], [place] [phone] Alexandre Sandoval MD [address] [place] [address] Social History Tobacco Use Types Packs/Day Years [...] Description 06/23/2024 11:30 AM EDT Office Visit [facility] [address] [place] [address] Matilde Calabrese MD [address] [place] [address] 07/11/2024 11:00 AM EDT Medication Management [facility] [address] [place] [address] Kourtney Su, PharmD [address] [place] [address] documented as of this encounter Visit Diagnoses Not on filedocumented in this encounter Care Teams Cobol Programmer Relationship Specialty Start Date End Date Alexandre Sandoval MD [address] [place] [address] PCP - General Internal Medicine 07/20/19 11/22/23 Matilde Calabrese MD [address] [place] [address] PCP - General Internal Medicine 11/23/23 Kourtney Su, PharmD [address] [place] [address] Pharmacist Internal Medicine 12/05/23 Cecily Pinedo RN [address] [place] [address] Stamping Machine OperatorProduction Clerk 01/08/24 04/15/24 Cecily Pinedo RN [address] [place] [address] Stamping Machine OperatorProduction Clerk 04/29/24 [facility] 01/09/24 documented as of this encounter
--- OUTSIDE RECORDS SUMMARY | 2024-06-12 10:52 | XMS_ITS | Encounter Summary ---
Author Organization [employer] Address [address] [facility] 7t [place] [address] Care Team Providers Care Ship Propeller Finisher Name Role Phone Matilde Calabrese MD Primary Care Provide r Kourtney Su PharmD Unavailable [phone] Cecily Pinedo RN Unavailable [phone] Cecily Pinedo RN Unavailable [phone] Reason for Visit * Reason Onset Date Comments Call Back Request 02/29/2024 Encounter Details Date Type Department Care Team (Late st Contact Info) Description 02/29/2024 Telephone [facility] MED[facility]INE [address] [place], [place] [phone] Matilde Calabrese MD [address] [place] [address] Call Back Request Social History Tobacco Use [...] Description 06/23/2024 11:30 AM EDT Office Visit [facility] [address] [place] [address] Matilde Calabrese MD [address] [place] [address] 07/11/2024 11:00 AM EDT Medication Management [facility] [address] [place] [address] Kourtney Su, PharmD [address] [place] [address] documented as of this encounter Visit Diagnoses Not on filedocumented in this encounter Additional Health Concerns Assessment Noted Time PHQ-9 Depression Total Score: 18 024 9:55 AM EST documented as of this encounter Care Teams Ship Propeller Finisher Relationship Specialty Start Date End Date Matilde Calabrese MD [address] [place] [address] PCP - General Internal Medicine 11/23/23 Kourtney Su, EmmaD [address] [place] [address] Pharmacist Internal Medicine 12/05/23 Cecily Pinedo RN [address] [place] [address] Teacher CounselorE Commerce Strategist 01/08/24 04/15/24 Cecily Pinedo RN [address] [place] [address] Teacher CounselorE Commerce Strategist 04/29/24 [facility] 01/09/24 documented as of this encounter
--- OUTSIDE RECORDS SUMMARY | 2024-06-12 10:52 | XMS_ITS | Encounter Summary ---
Author Organization [employer] Address [address] [facility] 7t [place] [address] Care Team Providers Care Clinical Sales Consultant Name Role Phone Alexandre Sandoval MD Primary Care Prov ider Matilde Calabrese MD Primary Care Provide r Kourtney Su PharmD Unavailable [phone] Cecily Pinedo RN Unavailable [phone] Cecily Pinedo RN Unavailable [phone] Encounter Details Date Type Department Care Team (Late Contact Info) Description 07/18/2022 Orders Only [facility] MED & PEDS [address] [place] [address] Belem Pedraza LPN Social History Tobacco Use [...] Department Care Team (Late Contact Info) Description 06/23/2024 11:30 AM EDT Office Visit [facility] MED[facility] [address] [place], [place] [phone] Matilde Calabrese MD [address] [place], [place] [phone] 07/11/2024 11:00 AM EDT Medication Management [facility] [address] [place] [address] Kourtney Su, PharmD [address] [place] [address] documented as of this encounter Visit Diagnoses Not on filedocumented in this encounter Care Teams Clinical Sales Consultant Relationship Specialty Start Date End Date Alexandre Sandoval MD [address] [place] [address] PCP - General Internal Medicine 07/20/19 11/22/23 Matilde Calabrese MD [address] [place] [address] PCP - General Internal Medicine 11/23/23 Kourtney Su, PharmD [address] [place] [address] Pharmacist Internal Medicine 12/05/23 Cecily Pinedo RN [address] [place] [address] Policy AnalystParasitologist 01/08/24 04/15/24 Cecily Pinedo RN [address] [place] [address] Policy AnalystParasitologist 04/29/24 [facility] 01/09/24 documented as of this encounter
== END 2024-06-12 10:20 | disposition home or self-care (01) ==
LOC: HO.HVS 09:46
PROVIDERS: PCP Internal Medicine; Visit Provider Physician Assistant Surgical
DX: I83.11 Varicose veins of right lower extremity with inflammation (principal); I83.12 Varicose veins of left lower extremity with inflammation
CPT/HCPCS: 99214

== ENCOUNTER → 2024-06-12 09:45 | Outpatient (BNVA) | payer MEDICAID, SELFPAY | PROVIDERS: PCP Internal Medicine; Visit Provider Physician Assistant Surgical | DX: I83.11 Varicose veins of right lower extremity with inflammation (principal); I83.12 Varicose veins of left lower extremity with inflammation | CPT/HCPCS: 99212 ==

== ENCOUNTER 2024-09-15 08:44 | Outpatient (AMB) | payer MEDICAID, SELFPAY ==
--- NOTE | 2024-09-15 08:55 | A.OFFVIS_ITS ---
Vital Signs 09/15/24 08:56 Height 5 ft 8 in Weight 273 lb 5.971 oz BMI 41.6 BP 116/85 Blood Pressure Location Lt brachial Position Sitting Pulse 74 Intake Visit Reasons: nausea and vomiting Intake Note: Raji presents in the office as a new patient for N/V. CC: States that the issue was the trulicity and changed to ozempic and has since been good. HE has been a lot better sine the medication change. Manager Human Capital Required: No Allergies ibuprofen Allergy (Intermediate, Verified 09/15/24 08:57) Unknown Iodinated Contrast Media Allergy (Intermediate, Verified 09/15/24 08:57) Unknown HPI Comments Details: 39 y.o M with PMH of uncontrolled DM, HTN, hypothyroidism, who is here for N/V that started after GLP-1. Pt reports he started Trulicity in Jan 2024 and within a few weeks started noticing incessant N/V within a day of the injection. Despite side effects, his dose was continued to be increased. Eventually pt had to be seen in ER multiple times due to N/V. Was switched to ozempic but hasnt started it yet. Currently on insulin and jardiance. With this does not have any GI sx at all. No fam hx of CRC or IBD. 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, 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 Physical Exam Exam Exam: No apparent distress, with obesity Nonicteric Abdomen soft, nondistended Alert and oriented x3, normal gait Vital Signs: Last Vital Signs Pulse 74 09/15/24 08:56 BP 116/85 09/15/24 08:56 BMI result Body Mass Index 41.6 Assessment & Plan Assessment & Plan (1) Nausea & vomiting: Code(s): R11.2 - Nausea with vomiting, unspecified Category: Medical (2) Side effect of medication: Code(s): T88.7XXA - Unspecified adverse effect of drug or medicament, initial encounter Category: Medical Plan N/V likely 2/2 GLP-1 agonist - known and common side effect trupti if dose not titrated up slowly. Other ddx include hyperglycemia related delayed emptying. Currently of GLP-1 and asymptomatic. Pt was educated on MoA of GLP-1s and common side effects. He was also advised to stay on the lowest dose until well tolerated before uptitrating dose. Plan: - Consider resumption of GLP-1 with guidance from endocrinology and door furring installer - Labs ordered to r/o celiac, uncontrolled hypothyroidism - CBC noted to be borderline in Feb, will recheck - UGIS ordered Follow up 3 months Orders: Orders Immunoglobulin A Today R11.2 - Nausea with vomiting, unspecified FL upper GI series Today R11.2 - Nausea with vomiting, unspecified Complete Blood Count no Diff Today R11.2 - Nausea with vomiting, unspecified TSH reflex Free T4 Today R11.2 - Nausea with vomiting, unspecified Hemoglobin A1c Today R11.2 - Nausea with vomiting, unspecified Transglutaminase IgA Today R11.2 - Nausea with vomiting, unspecified Vitamin D 25-OH Total Today R11.2 - Nausea with vomiting, unspecified Coding Level of Care Code New Pt Level 4 (31222) Diagnoses Nausea & vomiting R11.2 Side effect of medication T88.7XXA
[2024-09-15 08:56] VITALS: BP 116/85; PULSE 74; BMI 41.6
--- OUTSIDE RECORDS SUMMARY | 2024-09-15 09:13 | XMS_ITS | Clinical Summary ---
Author Organization [facility] Address [address] [place] [address] Phone Care Team Providers Care Senior Formulation Scientist Name Role Phone Matilde Calabrese MD [...] nausea or vomiting. 20 tablet 5 Active Active Problems Problem Noted Date Diagnosed Date Sleep apnea Surgical History Surgery Date Site/Laterality Comments OTHER SURGICAL HISTORY 04/16/2023 Left PROCEDURE: [place] I&D BELOW FASCIA FOOT 1 BURSAL SPACE OTHER SURGICAL HISTORY 04/18/2023 Left PROCEDURE: [place] INCISION BONE CORTEX FOOT; COMMENT: left, distal hallux OTHER SURGICAL HISTORY 04/18/2023 PROCEDURE: [place] REPAIR INTERMEDIATE N/H/F/XTRNL GENT 2.5CM/< TOE SURGERY Left Medical History Medical History Date Comments Diabetes mellitus (CMS/HCC V24, CMS/HCC V28) Hypertension Disease of thyroid gland Sleep [...] 77 06/05/2024 3:18 PM EDT Temperature 36.8 C (98.2 F) 06/05/2024 3:18 PM EDT Respiratory Rate 20 06/05/2024 3:18 PM EDT Oxygen Saturation 99% 06/05/2024 3:18 PM EDT Inhaled Oxygen Concentration - - Weight 122 kg (270 lb) 06/05/2024 1:25 PM EDT Height 172.7 cm (5' 8 ) 06/05/2024 1:25 PM EDT Body Mass Index 41.05 06/05/2024 1:25 PM EDT Plan of Treatment Upcoming Encounters Date Type Department Care Team (Late st Contact Info) Description 11/18/2024 2:30 PM EDT Office Visit Orthopedic Surgery - [place] [address] [phone] Elias Agee, DPM [address] [address] Health Maintenance Due Date Last Done Comments Diabetes: Annual Foot Exam 1996 HIV Screening 01/22/2022 Social Influencers of Health Screening 01/22/2022 COVID-19 Vaccine ( season) 2023 04/09/2020, 03/12/2020 Diabetes: Annual Urine Albumin-Creatinine Ratio (uACR) 12/25/2023 07/25/2022 Depression Screening 02/20/2024 Hepatitis B Vaccines (3 of 3 - 19+ 3-dose series) 06/04/2024 02/18/2024, 12/05/2023 Diabetes: Blood Sugar Control Test (HGBA1C) 09/18/2024 03/21/2024, 02/18/2024, 11/14/2023 Influenza Vaccine (#1) 2024 5, 03/04/2023, 12/16/2018, Additional history exists Diabetes: Annual Retina Eye Exam 03/12/2025 03/12/2024 Diabetes: Annual GFR (Glomerular Filtration Rate) 06/05/2025 06/05/2024, 05/12/2024, 05/02/2024, Additional history exists Hypertension/CHF/CAD Annual BMP Blood Test 06/05/2025 06/05/2024, 05/12/2024, 05/02/2024, Additional history exists DTaP,Tdap,and Td Vaccines (3 - Td or Tdap) 08/19/2028 08/19/2018, 02/05/2012 Cholesterol Screening (Lipid Panel) 02/17/2029 02/18/2024, 01/09/2020 Pneumococcal Vaccine: Pediatrics (0 to 5 Years) and At-Risk Patients (6 to 49 Years) Completed 12/27/2023, 08/19/2018 Hepatitis C Screening Completed 02/18/2024 HIB Vaccines Aged Out No longer eligi [...] Procedure Name Priority Date/Time Associated Diagnosis Comments COMPREHENSIVE METABOLIC PANEL STAT 06/05/2024 1:57 PM EDT from Last 3 Months or Most Recently Relevant to Health Maintenance Results * (ABNORMAL) Comprehensive metabolic panel (06/05/2024 1:57 PM EDT) Sodium 136 133 - 145 mmol/L LAB CHEMISTRY METHOD 06/05/2024 3:19 PM [facility] Potassium 3.9 3.5 - 5.5 mmol/L LAB CHEMISTRY METHOD 06/05/2024 3:19 PM [facility] Chloride 103 96 - 110 mmol/L LAB CHEMISTRY METHOD 06/05/2024 3:19 PM [facility] CO2 25 21 - 32 mmol/L LAB CHEMISTRY METHOD 06/05/2024 3:19 PM [facility] Anion Gap 8 3 - 11 LAB CHEMISTRY METHOD 06/05/2024 3:19 PM [facility] Glucose 128(H) 70 - 100 mg/dL LAB CHEMISTRY METHOD 06/05/2024 3:19 PM [facility] BUN 11 5 - 25 mg/dL LAB CHEMISTRY METHOD 06/05/2024 3:19 PM [facility] Creatinine 0.84 0.70 - 1.30 mg/dL LAB CHEMISTRY METHOD 06/05/2024 3:19 PM [facility] eGFR 115 >=60 mL/min/1. 73m2 LAB CHEMISTRY METHOD 06/05/2024 3:19 PM [facility] Comment:Calculation based on the Chronic Kidney Disease Epidemiology Collaboration (CKD-EPI) equation refit without adjustment for race. BUN/Creatinine Ratio 13.1 LAB CHEMISTRY METHOD 06/05/2024 3:19 PM [facility] Calcium 10.0 8.5 - 10.5 mg/dL LAB CHEMISTRY METHOD 06/05/2024 3:19 PM [facility] AST (SGOT) 19 10 - 42 unit/L LAB CHEMISTRY METHOD 06/05/2024 3:19 PM [facility] ALT (SGPT) 25 10 - 60 unit/L LAB CHEMISTRY METHOD 06/05/2024 3:19 PM [facility] Alkaline Phosphatase 104 42 - 121 unit/L LAB CHEMISTRY METHOD 06/05/2024 3:19 PM EDT [facility] Total Protein 8.9(H) 6.0 - 8.0 g/dL LAB CHEMISTRY METHOD 06/05/2024 3:19 PM EDT [facility] Albumin 4.6 3.2 - 5.0 g/dL LAB CHEMISTRY METHOD 06/05/2024 3:19 PM EDT [facility] Total Bilirubin 0.7 0.0 - 1.4 mg/dL LAB CHEMISTRY METHOD 06/05/2024 3:19 PM EDT [facility] Blood Venous blood specimen / Unknown Venipuncture / Unknown 06/05/2024 1:57 PM EDT 06/05/2024 2:44 PM EDT us Jairo Forrester DO LAB BLOOD ORDERABLES Final Result [facility] [address] [place] [address], from Last 3 Months or Most Recently Relevant to Health Maintenance Insurance MEDICAID - [place] Care Teams Senior Formulation Scientist Relationship Specialty Start Date End Date Matilde Calabrese MD [address] [phone] PCP - General 11/22/23
--- OUTSIDE RECORDS SUMMARY | 2024-09-15 09:13 | XMS_ITS | Encounter Summary ---
Author Organization [employer] Address [address] [place] [address] 7t [place] [address] Care Team Providers Care Fluid Power Mechanic Name Role Phone Matilde Calabrese MD Primary Care Provide r Kourtney Su PharmD Unavailable [phone] Cecily Pinedo RN Unavailable [phone] Cecily Pinedo RN Unavailable [phone] Encounter Details Date Type Department Care Team ([facility] st Contact Info) Description 02/07/2024 Orders Only [facility] [address] [place] [address] Provider, MD Ari Social History Tobacco Use [...] Care Team (Late st Contact Info) Description 09/29/2024 4:00 PM EDT Medication Management [facility] MEDICINE [address] [place] [address] Kourtney Su, PharmD [address] [place] [address] documented as of this encounter Procedures Procedure [...] documented as of this encounter Care Teams Fluid Power Mechanic Relationship Specialty Start Date End Date Matilde Calabrese MD [address] [place] [address] PCP - General Internal Medicine 11/23/23 Kourtney Su, Samara [address] [place] [address] Pharmacist Internal Medicine 12/05/23 Cecily Pinedo RN [address] [place] [address] Operational TrainerLiquified Natural Gas Technician 01/08/24 04/15/24 Cecily Pinedo RN [address] [place] [address] Operational TrainerLiquified Natural Gas Technician 04/29/24 07/23/24 [facility] 01/09/24 documented as of this encounter
== END 2024-09-15 09:36 | disposition home or self-care (01) ==
LOC: HO.HGI 08:45
PROVIDERS: PCP Internal Medicine; Visit Provider Internal Medicine
DX: R11.2 Nausea with vomiting, unspecified (principal)
CPT/HCPCS: 99204

== ENCOUNTER 2024-09-15 08:44 | Outpatient (REF) | payer MEDICAID, SELFPAY ==
[2024-09-15 10:46] LABS: Hematocrit 40.7 % (42.0-52.0); Hemoglobin 14.0 g/dl (14.0-18.0); Mean Corpuscular HGB Conc 34.4 g/dl (31.0-36.0); Mean Corpuscular Hemoglobin 29.6 pg (27.0-33.0); Mean Corpuscular Volume 86.0 fL (80.0-98.0); NRBC Abs Auto 0.000 X10*3/uL (0.0-0.012); NRBC Pct Auto 0.0 /100WBC (0.0-0.2); Platelet Count 283 X10*3/uL (160-400); Red Blood Count 4.73 X10*6/uL (4.60-5.80); White Blood Count 10.7 X10*3/uL (4.8-10.8)
[2024-09-15 11:39] LABS: Hemoglobin A1C 254.9612 umol/L; Total Hemoglobin (HGBA1C) 3648.9153 umol/L
[2024-09-15 12:55] LABS: Free T4 (Free Thyroxine) 1.05 ng/dL (0.71-1.85)
[2024-09-16 03:23] LABS: Immunoglobulin A 427 mg/dL (47-310)
== END 2024-09-15 08:45 | disposition home or self-care (01) ==
LOC: HO.LAB 08:44
PROVIDERS: PCP Internal Medicine; Visit Provider Internal Medicine
DX: Z01.84 Encounter for antibody response examination (principal); T88.7XXA Unspecified adverse effect of drug or medicament, initial encounter; Z79.4 Long term (current) use of insulin; Z79.84 Long term (current) use of oral hypoglycemic drugs
CPT/HCPCS: 36415; 82306; 82784; 83036; 84439; 84443; 85027; 86364; 99202